=== PATIENT | female | born 1970 | race Two or more races ===

== ENCOUNTER 2020-02-20 14:11 | Outpatient (REF) | payer OTHER, SELFPAY ==
--- NOTE | 2020-02-20 | MM_ITS ---
EXAMINATION: MM SCREENING DIGITAL BREAST TOMOSYNTHESIS, BILATERAL CLINICAL INFORMATION: Screening. Asymptomatic. The lifetime risk of breast cancer based on the Tyrer-Cuzick Model is 7%. COMPARISON: Mammography: 12/21/2018, 09/15/2017, 09/14/2016 TECHNIQUE: Digital breast tomosynthesis is performed in both the craniocaudal and mediolateral oblique views along with computer-aided detection (CAD). Synthesized 2D images are generated from the tomosynthesis. FINDINGS: There are scattered areas of fibroglandular density (ACR BI-RADS breast composition Category b). There are no significant masses, abnormal calcifications, or other abnormalities. Parenchymal pattern is similar to prior exams. No developing density. No significant changes. MM/MM tomosynthesis screening BI IMPRESSION: No mammographic evidence of malignancy. ASSESSMENT: BI-RADS 1: Negative RECOMMENDATION: Routine annual mammography screening. This patient's information was entered into a reminder system with a target due date for their next mammogram.
== END 2020-02-20 14:12 | disposition home or self-care (01) ==
LOC: HO.MAMMO 14:11
PROVIDERS: PCP Internal Medicine; Visit Provider Internal Medicine
DX: Z12.31 Encounter for screening mammogram for malignant neoplasm of breast (principal)
CPT/HCPCS: 77063; 77067

== ENCOUNTER 2020-05-08 09:26 | Outpatient (REF) | payer BC, SELFPAY ==
[2020-05-08 10:43] LABS: Basophils Absolute Auto 0.1 X10*3/uL (0.0-0.2); Imm Gran Abs Auto 0.01 X10*3/uL (0.00-0.03); Imm Gran Pct Auto 0.2 % (0.0-0.4); MANUAL DIFF FLAG SCAN; Red Cell Distribution Width 13.1 % (11.0-16.0); SCAN SMEAR FLAG 1
[2020-05-08 10:45] LABS: Basophils Percent Auto 1.1 % (0-2); Eosinophils Absolute Auto 0.1 X10*3/uL (0.0-0.4); Eosinophils Percent Auto 3.2 % (0-4); Hematocrit 38.4 % (37-47); Hemoglobin 12.2 g/dl (12.0-16.0); Lymphocytes Absolute Auto 1.1 X10*3/uL (1.2-4.9); Lymphocytes Percent Auto 25.5 % (20-40); Mean Corpuscular HGB Conc 31.8 g/dl (31.0-35.0); Mean Corpuscular Hemoglobin 28.7 pg (27.0-33.0); Mean Corpuscular Volume 90.4 fL (80-98); Mean Platelet Volume 14.3 fL (9.4-12.3); Monocytes Absolute Auto 0.3 X10*3/uL (0.1-1.2); Monocytes Percent Auto 6.6 % (2-11); Neutrophils Absolute Auto 2.8 X10*3/uL (2.0-8.3); Neutrophils Percent Auto 63.4 % (45-73); PLT CLUMP 1; Red Blood Count 4.25 X10*6/uL (4.20-5.50)
[2020-05-08 10:46] LABS: PLT ABN DIST 1
[2020-05-08 11:21] LABS: Alanine Aminotransferase < 6 U/L (0-31); Albumin Level 3.8 g/dL (3.5-5.0); Alkaline Phosphatase 37 U/L (39-117); Anion Gap 12 (12-20); Aspartate Amino Transferase 11 U/L (5-31); Bilirubin Total 0.7 mg/dL (0.0-1.0); Blood Urea Nitrogen 16 mg/dL (9-16); Calcium 8.7 mg/dL (8.4-10.2); Carbon Dioxide 23 mmol/L (22-29); Chloride 108 mmol/L (96-108); Cholesterol 196 mg/dL; Estimated Glomerular Filt Rate > 60; Glucose Fasting 84 mg/dL (60-99); HDL Cholesterol 48 mg/dL; LDL Cholesterol Calculated 117 mg/dl; Potassium 4.3 mmol/L (3.3-5.1); Sodium 139 mmol/L (135-145); Total Protein 6.6 g/dL (6.5-8.0); Triglycerides 159 mg/dL
[2020-05-08 11:23] LABS: Platelet Count 142 X10*3/uL (160-400); SLIDE REVIEW VERIFIED; White Blood Count 4.4 X10*3/uL (4.8-10.8)
[2020-05-08 11:25] LABS: TSH reflex Free T4 2.65 uIU/mL (0.32-4.0)
[2020-05-08 11:33] LABS: Vitamin D 25-OH Total 26.9 ng/mL (>30)
[2020-05-08 11:59] LABS: Folate 16.3 ng/mL (> or = 4.0); Vitamin B12 285 pg/mL (200-900)
== END 2020-05-08 09:27 | disposition home or self-care (01) ==
LOC: HO.LAB 09:26
PROVIDERS: PCP Internal Medicine; Visit Provider Internal Medicine
DX: E78.2 Mixed hyperlipidemia (principal); E53.8 Deficiency of other specified B group vitamins; E55.9 Vitamin D deficiency, unspecified; E03.9 Hypothyroidism, unspecified; E66.9 Obesity, unspecified
CPT/HCPCS: 36415; 80053; 80061; 82306; 82607; 82746; 84443; 85025

== ENCOUNTER 2020-08-06 10:26 | Outpatient (REF) | payer BC, SELFPAY ==
[2020-08-06 11:51] LABS: Hemoglobin 11.2 g/dl (12.0-16.0); Imm Gran Abs Auto 0.01 X10*3/uL (0.00-0.03); Imm Gran Pct Auto 0.2 % (0.0-0.4); MANUAL DIFF FLAG SCAN; Monocytes Percent Auto 6.2 % (2-11); Red Cell Distribution Width 13.2 % (11.0-16.0); SCAN SMEAR FLAG 1
[2020-08-06 11:53] LABS: Basophils Percent Auto 0.9 % (0-2); Eosinophils Absolute Auto 0.1 X10*3/uL (0.0-0.4); Eosinophils Percent Auto 2.5 % (0-4); Hematocrit 35.6 % (37-47); Lymphocytes Percent Auto 23.5 % (20-40); Mean Corpuscular HGB Conc 31.5 g/dl (31.0-35.0); Mean Corpuscular Hemoglobin 27.9 pg (27.0-33.0); Mean Corpuscular Volume 88.8 fL (80-98); Monocytes Absolute Auto 0.3 X10*3/uL (0.1-1.2); Neutrophils Absolute Auto 2.9 X10*3/uL (2.0-8.3); Neutrophils Percent Auto 66.7 % (45-73); Platelet Count 133 X10*3/uL (160-400); Red Blood Count 4.01 X10*6/uL (4.20-5.50); White Blood Count 4.3 X10*3/uL (4.8-10.8)
[2020-08-06 11:56] LABS: PLT ABN DIST 1
[2020-08-06 12:19] LABS: TSH reflex Free T4 1.85 uIU/mL (0.32-4.0)
[2020-08-06 12:51] LABS: SLIDE REVIEW VERIFIED
== END 2020-08-06 10:27 | disposition home or self-care (01) ==
LOC: HO.LAB 10:26
PROVIDERS: PCP Internal Medicine; Visit Provider Internal Medicine
DX: E03.9 Hypothyroidism, unspecified (principal); D64.9 Anemia, unspecified
CPT/HCPCS: 36415; 84443; 85025

== ENCOUNTER → 2020-09-09 14:12 | Outpatient (BNV) | payer BC, SELFPAY | PROVIDERS: PCP Internal Medicine; Referring Provider Internal Medicine; Visit Provider Internal Medicine | DX: I82.409 Acute embolism and thrombosis of unspecified deep veins of unspecified lower extremity (principal) | CPT/HCPCS: 99203; 99213; 99214 ==

== ENCOUNTER 2020-09-19 11:01 | Emergency (ER) | payer BC, SELFPAY ==
--- NOTE | ~2020-09-19 | CT_ITS ---
EXAMINATION: CT ABDOMEN AND PELVIS WITH CONTRAST CLINICAL INFORMATION: Right lower quadrant pain COMPARISON: None TECHNIQUE: Multidetector volumetric images were obtained from the superior aspect of the liver through the pubic symphysis following administration 85 mL of Omnipaque 350 intravenous contrast. Sagittal and coronal reformatted images were obtained on the technologist's workstation. Oral contrast: Yes This CT examination was performed using dose optimization techniques as appropriate, variously including the following: *Automated exposure control *Adjustment of mA and/or kV according to patient size (this includes techniques or standardized protocols for targeted exams where dose is matched to indication/reason for exam; i.e. extremities or head) *Use of iterative reconstruction technique DLP: 763 mGy-cm FINDINGS: LUNG BASES: The visualized lung bases are unremarkable. LIVER, GALLBLADDER, AND BILIARY TREE: The liver is normal in size, shape, and attenuation. No focal hepatic lesion or biliary ductal dilatation is present. The gallbladder has been removed. PANCREAS: Unremarkable. SPLEEN: Unremarkable. ADRENAL GLANDS: Unremarkable. KIDNEYS AND URETERS: The kidneys are normal in size, shape, and attenuation. No hydronephrosis, hydroureter, or calculi seen. No perinephric stranding. BLADDER: Unremarkable. GASTROINTESTINAL TRACT: There are postoperative changes from gastric sleeve procedure. There may be wall thickening of the lower thoracic esophagus. The cecum is high in the right mid abdomen. Small and large bowel is otherwise unremarkable. The appendix is unremarkable. ABDOMINAL WALL: No significant hernia is appreciated. LYMPH NODES: Normal. VASCULAR: Unremarkable. PELVIC VISCERA: Unremarkable. OSSEOUS STRUCTURES: There are degenerative changes of the spine and mild curvature to the right.. CT/CT abdomen pelvis w con IMPRESSION: Postoperative changes following gastric sleeve procedure. Question wall thickening of the distal thoracic esophagus. Normal-appearing appendix.
[2020-09-19 11:25] VITALS: BP 125/53; PULSE 59; RESP 18; TEMP 37.1; O2SAT 100; BMI 32.1
[2020-09-19 11:50] LABS: Glucose Urine UA NEG (NEG); Leukocyte Esterase Urine NEG (NEG); Nitrite Urine NEG (NEG); Specific Gravity - Urine >= 1.030 (1.005-1.025); Urine Blood NEG (NEG); Urine Ketones NEG (NEG); Urine Protein NEG (NEG-TRACE)
--- NOTE | 2020-09-19 11:51 | ED.ABDPAIN ---
HPI - Abdominal Pain General Chief Complaint: Abdominal Pain Stated Complaint: Lower right abd pain Time Seen by Provider: 09/19/20 11:48 Source: patient Mode of arrival: ambulatory (sent from PCP office) Limitations: no limitations History of Present Illness MD elicited complaint: abdominal pain Pertinent past history: constipation Onset (ago): day(s) (1) Pain Consistency: colicky Location: RLQ Severity: moderate Quality: aching and burning Radiation: none Migration to: periumbilical Exacerbating factors: movement Relieving factors: nothing Associated symptoms: denies other symptoms Related Data Home Medications Medication Instructions Recorded Confirmed norethindrone 1 mg-ethinyl 1 tab PO DAILY 01/29/20 09/19/20 estradiol 20 mcg (21)-iron 75 mg (7) tablet multivitamin 1 tab PO DAILY 09/09/20 09/19/20 cyclobenzaprine 5 mg tablet 5 mg PO TID PRN 09/19/20 09/19/20 Previous Rx's Medication Instructions Recorded baclofen 5 mg tablet 5 mg PO TID PRN 30 Days #90 tab 01/29/20 cholecalciferol (vitamin D3) 25 25 mcg PO DAILY 90 Days #90 cap 05/29/20 mcg (1,000 unit) capsule levothyroxine 25 mcg tablet 25 mcg PO QAM #90 tab 08/02/20 sennosides 8.6 mg tablet 8.6 mg PO BEDTIME PRN 90 Days #90 08/20/20 tab tramadol 50 mg tablet 50 mg PO Q8H PRN 14 Days #21 tab 08/20/20 cyanocobalamin (vitamin B-12) 1,000 mcg PO DAILY #90 tab 09/10/20 [Vitamin B-12] ferrous sulfate [Iron (ferrous 325 mg PO BID #60 tab 09/10/20 sulfate)] Allergies Allergy/AdvReac Type Severity Reaction Status Date / Time lactose Allergy Unknown diarrhea Verified 09/19/20 11:24 oxycodone AdvReac Mild Vomiting Verified 09/19/20 11:24 Review of Systems Review of Systems Constitutional : No Weight loss, No Fever, No Chills ENT/Mouth : No sore throat, No Rhinorrhea Eyes: No Swelling, No Redness Cardiovascular : No Chest Pain, No SOB, NoEdema Respiratory : No Cough, No Sputum, No Wheezing Gastrointestinal : no Nausea, no Vomiting, no Diarrhea, positive abdominal Pain, No Hematochezia, No Melena Genitourinary : No Dysuria, No Urinary Frequency, No Hematuria, No Urgency Musculoskeletal : No joint pain, No Myalgias, No Joint Swelling Skin : No Skin Lesions, No rash Neuro : No Weakness, No Numbness, No Dizziness, No Headache Psych : No Anxiety/Panic, No Depression Heme/Lymph: No Bruising, No Lymphadenopathy Endocrine : No Polyuria, No Polydipsia All other systems reviewed and are negative. Physical Exam Vital Signs: Vital Signs: Last Vital Signs Temp 97.5 F 09/19/20 13:43 Pulse 55 09/19/20 13:43 Resp 17 09/19/20 13:43 BP 116/53 L 09/19/20 13:43 Pulse Ox 100 09/19/20 13:43 Body Mass Index 32.1 Appearance: Alert. Oriented X3. No acute distress. Eyes: Pupils equal, round and reactive to light. ENT: Pharynx normal. Neck: Normal inspection. Neck supple. CVS: Normal heart rate and rhythm. Pulses normal. Respiratory: No respiratory distress. Breath sounds normal. Abdomen: Soft and very mild RLQ ttp no rebound or guarding Skin: Skin warm and dry. Normal skin color. Normal skin turgor. Extremities: No lower extremity edema. No calf ttp Neuro: Oriented X 3. No motor deficit. No sensory deficit. Course Course Course Narrative: no acute findings stable for DC MDM - Abdominal Pain MDM Narrative Medical decision making narrative: 50 yo female s/o gastric sleeve and cholecystectomy comes in with 1 day of RLQ pain was severe yesterday but seems to have stopped today sent to ED by PCP - at this time will obtain labs, UA, CT scan to evaluate for hernia/appendicitis/ovarian pathology/renal colic, dispo per results and findings. Differential Diagnosis Differential diagnosis: Likely acute appendicitis, calculus of kidney, constipation, diverticulitis and ovarian cyst Lab Data Result diagrams: 09/19/20 12:02 09/19/20 12:02 Labs: Lab Results 09/19/20 09/19/20 09/19/20 Range/Units 11:36 11:36 12:02 WBC 6.3 (4.8-10.8) X10*3/uL RBC 4.30 (4.20-5.50) X10*6/uL Hgb 11.6 L (12.0-16.0) g/dl Hct 37.8 (37-47) % MCV 87.9 (80-98) fL MCH 27.0 (27.0-33.0) pg MCHC 30.7 L (31.0-35.0) g/dl RDW 13.8 (11.0-16.0) % Plt Count 173 D (160-400) X10*3/uL MPV 13.0 H (9.4-12.3) fL Immature Gran % (Auto) 0.2 (0.0-0.4) % Neut % (Auto) 73.0 (45-73) % Lymph % (Auto) 18.4 L (20-40) % [place] % (Auto) 6.2 (2-11) % Eos % (Auto) 1.4 (0-4) % Baso % (Auto) 0.8 (0-2) % Lymph # (Auto) 1.2 (1.2-4.9) X10*3/uL [place] # (Auto) 0.4 (0.1-1.2) X10*3/uL Eos # (Auto) 0.1 (0.0-0.4) X10*3/uL Baso # (Auto) 0.1 (0.0-0.2) X10*3/uL Abs Immat Gran (auto) 0.01 (0.00-0.03) X10*3/uL Absolute Neuts (auto) 4.6 (2.0-8.3) X10*3/uL Absolute Nucleated RBC 0.000 (0.0-0.012) X10*3/uL Nucleated RBC % (auto) 0.0 (0.0-0.2) /100WBC Sodium (135-145) mmol/L Potassium (3.3-5.1) mmol/L Chloride (96-108) mmol/L Carbon Dioxide (22-29) mmol/L Anion Gap (12-20) BUN (9-16) mg/dL Creatinine (0.5-1.4) mg/dL Estim Creat Clear Calc Estimated GFR Random Glucose (60-115) mg/dL Calcium (8.4-10.2) mg/dL Total Bilirubin (0.0-1.0) mg/dL AST (5-31) U/L ALT (0-31) U/L Alkaline Phosphatase (39-117) U/L Total Protein (6.5-8.0) g/dL Albumin (3.5-5.0) g/dL Urine Color YELLOW Urine Appearance HAZY Urine pH 6.0 (5.0-8.0) Ur Specific [place] >= 1.030 H (1.005-1.025) Urine Protein NEG (NEG-TRACE) MG/DL Urine Glucose (UA) NEG (NEG) MG/DL Urine Ketones NEG (NEG) MG/DL Urine Blood NEG (NEG) Urine Nitrite NEG (NEG) Ur Leukocyte Esterase NEG (NEG) Urine Test NEGATIVE (NEGATIVE) 09/19/20 Range/Units 12:02 WBC (4.8-10.8) X10*3/uL RBC (4.20-5.50) X10*6/uL Hgb (12.0-16.0) g/dl Hct (37-47) % MCV (80-98) fL MCH (27.0-33.0) pg MCHC (31.0-35.0) g/dl RDW (11.0-16.0) % Plt Count (160-400) X10*3/uL MPV (9.4-12.3) fL Immature Gran % (Auto) (0.0-0.4) % Neut % (Auto) (45-73) % Lymph % (Auto) (20-40) % [place] % (Auto) (2-11) % Eos % (Auto) (0-4) % Baso % (Auto) (0-2) % Lymph # (Auto) (1.2-4.9) X10*3/uL [place] # (Auto) (0.1-1.2) X10*3/uL Eos # (Auto) (0.0-0.4) X10*3/uL Baso # (Auto) (0.0-0.2) X10*3/uL Abs Immat Gran (auto) (0.00-0.03) X10*3/uL Absolute Neuts (auto) (2.0-8.3) X10*3/uL Absolute Nucleated RBC (0.0-0.012) X10*3/uL Nucleated RBC % (auto) (0.0-0.2) /100WBC Sodium 142 (135-145) mmol/L Potassium 4.1 (3.3-5.1) mmol/L Chloride 109 H (96-108) mmol/L Carbon Dioxide 26 (22-29) mmol/L Anion Gap 11 L (12-20) BUN 17 H (9-16) mg/dL Creatinine 0.77 (0.5-1.4) mg/dL Estim Creat Clear Calc 94.1 Estimated GFR > 60 Random Glucose 87 (60-115) mg/dL Calcium 9.3 D (8.4-10.2) mg/dL Total Bilirubin 0.7 (0.0-1.0) mg/dL AST 13 (5-31) U/L ALT 10 (0-31) U/L Alkaline Phosphatase 42 (39-117) U/L Total Protein 6.7 (6.5-8.0) g/dL Albumin 3.9 (3.5-5.0) g/dL Urine Color Urine Appearance Urine pH (5.0-8.0) Ur Specific [place] (1.005-1.025) Urine Protein (NEG-TRACE) MG/DL Urine Glucose (UA) (NEG) MG/DL Urine Ketones (NEG) MG/DL Urine Blood (NEG) Urine Nitrite (NEG) Ur Leukocyte Esterase (NEG) Urine Test (NEGATIVE) Discharge Plan Discharge Clinical Impression: RLQ abdominal pain Patient Disposition: Home, Self-Care Instructions: Abdominal Pain (ED) Additional Instructions: return to ED for any worsening symptoms or concerns negative CT scan for any ovarian issues, renal colic, appendicitis Prescriptions: No Action levothyroxine 25 mcg tablet 25 mcg PO QAM Qty: 90 RF: 0 multivitamin Tablet 1 tab PO DAILY RF: 0 cyanocobalamin (vitamin B-12) [Vitamin B-12] 1,000 mcg Tablet 1,000 mcg PO DAILY Qty: 90 RF: 3 ferrous sulfate [Iron (ferrous sulfate)] 325 mg (65 mg iron) Tablet 325 mg PO BID Qty: 60 RF: 3 cholecalciferol (vitamin D3) 25 mcg (1,000 unit) capsule 25 mcg PO DAILY 90 Days Qty: 90 RF: 3 sennosides [Senna Laxative] 8.6 mg tablet 8.6 mg PO BEDTIME PRN (Reason: constipation) 90 Days Qty: 90 RF: 0 tramadol 50 mg tablet 50 mg PO Q8H PRN (Reason: pain) 14 Days Qty: 21 RF: 0 norethindrone-e.estradiol-iron 1 mg-20 mcg (21)/75 mg (7) tablet 1 tab PO DAILY RF: 0 baclofen 5 mg tablet 5 mg PO TID PRN (Reason: pain) 30 Days Qty: 90 RF: 0 cyclobenzaprine 5 mg tablet 5 mg PO TID PRN (Reason: muscle spasm) RF: 0 Referrals: Bonnie Laura MD [Primary Care Provider] - 2 days (if not better) Stand Alone Forms: Work/School Release [facility] Past Medical History Attestation statement: The following information was validated with the patient. Medical History Constipation by delayed colonic transit Hypothyroidism Hypothyroidism Hypovitaminosis D Left shoulder pain Obesity Osteoarthritis of left knee Pancytopenia Toenail deformity Surgical History History of arthroscopy of left knee History of section History of cholecystectomy History of surgery Family History Family History Father Diabetes CVD (cardiovascular disease) Myocardial infarction Mother CVD (cardiovascular disease) Hypertension Maternal Grandmother No problems noted. Maternal Grandfather Prostate cancer Family/Other Mental health disorder Social History Social History Housing: House Alcohol intake: former Patient Tobacco Use Status: Never used Tobacco e-Cigarette/Vaping Use: Never Used Second Hand Smoke Exposure: No Advance Directives: No Advance Directives Information Provided: Yes Patient : No service: No Current occupational status: employed Current occupational exposures/hazards: No
[2020-09-19 11:53] LABS: UPreg QC Valid YES; Urine Pregnancy NEGATIVE (NEGATIVE)
[2020-09-19] MEDS: 0.9 % Sodium Chloride 1,000 ML 999 ML IVCONT (12:03)
[2020-09-19 12:14] LABS: Appearance Urine HAZY; Color Urine YELLOW
[2020-09-19 12:17] LABS: MANUAL DIFF FLAG NO
[2020-09-19 12:22] LABS: Basophils Absolute Auto 0.1 X10*3/uL (0.0-0.2); Basophils Percent Auto 0.8 % (0-2); Eosinophils Absolute Auto 0.1 X10*3/uL (0.0-0.4); Eosinophils Percent Auto 1.4 % (0-4); Hematocrit 37.8 % (37-47); Hemoglobin 11.6 g/dl (12.0-16.0); Imm Gran Abs Auto 0.01 X10*3/uL (0.00-0.03); Imm Gran Pct Auto 0.2 % (0.0-0.4); Lymphocytes Absolute Auto 1.2 X10*3/uL (1.2-4.9); Lymphocytes Percent Auto 18.4 % (20-40); Mean Corpuscular HGB Conc 30.7 g/dl (31.0-35.0); Mean Corpuscular Volume 87.9 fL (80-98); Monocytes Absolute Auto 0.4 X10*3/uL (0.1-1.2); Monocytes Percent Auto 6.2 % (2-11); Neutrophils Absolute Auto 4.6 X10*3/uL (2.0-8.3); Platelet Count 173 X10*3/uL (160-400); Red Cell Distribution Width 13.8 % (11.0-16.0); White Blood Count 6.3 X10*3/uL (4.8-10.8)
[2020-09-19 12:48] LABS: Alanine Aminotransferase 10 U/L (0-31); Albumin Level 3.9 g/dL (3.5-5.0); Alkaline Phosphatase 42 U/L (39-117); Anion Gap 11 (12-20); Aspartate Amino Transferase 13 U/L (5-31); Bilirubin Total 0.7 mg/dL (0.0-1.0); Blood Urea Nitrogen 17 mg/dL (9-16); Calcium 9.3 mg/dL (8.4-10.2); Carbon Dioxide 26 mmol/L (22-29); Chloride 109 mmol/L (96-108); Creatinine Clr Calc Pharmacy 94.1; Estimated Glomerular Filt Rate > 60; Glucose Random 87 mg/dL (60-115); Potassium 4.1 mmol/L (3.3-5.1); Sodium 142 mmol/L (135-145); Total Protein 6.7 g/dL (6.5-8.0)
[2020-09-19] MEDS: iohexoL 350 MG/ML 100 ML INFUS..BTL IV (13:27)
[2020-09-19 13:43] VITALS: BP 116/53; PULSE 55; RESP 17; TEMP 36.4; O2SAT 100
== END 2020-09-19 14:04 | disposition home or self-care (01) ==
PROVIDERS: Emergency Provider Emergency Medicine; PCP Internal Medicine
DX: R10.31 Right lower quadrant pain (principal); Z98.84 Bariatric surgery status; Z90.49 Acquired absence of other specified parts of digestive tract
CPT/HCPCS: 36415; 74177; 80053; 81003; 81025; 85025; 96361; 96374; 99284; Q9967

== ENCOUNTER 2021-03-02 07:57 | Outpatient (REF) | payer BC, SELFPAY ==
--- NOTE | ~2021-03-02 | MM_ITS ---
EXAMINATION: MM SCREENING DIGITAL BREAST TOMOSYNTHESIS, BILATERAL CLINICAL INFORMATION: Screening. Asymptomatic. The lifetime risk of breast cancer based on the Tyrer-Cuzick Model is 8%. COMPARISON: Mammography: 02/20/2020, 12/21/2018, 09/15/2017 TECHNIQUE: Digital breast tomosynthesis is performed in both the craniocaudal and mediolateral oblique views along with computer-aided detection (CAD). Synthesized 2D images are generated from the tomosynthesis. FINDINGS: There are scattered areas of fibroglandular density (ACR BI-RADS breast composition Category b). There are no significant masses, abnormal calcifications, or other abnormalities. Parenchymal pattern is similar to prior studies. The axilla and skin contours are unremarkable. MM/MM tomosynthesis screening BI IMPRESSION: No mammographic evidence of malignancy. ASSESSMENT: BI-RADS 1: Negative RECOMMENDATION: Routine annual mammography screening. This patient's information was entered into a reminder system with a target due date for their next mammogram.
== END 2021-03-02 07:58 | disposition home or self-care (01) ==
LOC: HO.MAMMO 07:57
PROVIDERS: Visit Provider Internal Medicine
DX: Z12.31 Encounter for screening mammogram for malignant neoplasm of breast (principal)
CPT/HCPCS: 77063; 77067

== ENCOUNTER 2021-03-02 08:31 | Outpatient (REF) | payer BC, SELFPAY ==
[2021-03-02 10:49] LABS: Thyroid Stimulating Hormone 3.29 uIU/mL (0.32-4.0)
[2021-03-06 13:01] LABS: Vitamin D 25-OH, D2 4 ng/mL; Vitamin D 25-OH, D3 35 ng/mL; Vitamin D 25-OH, Total 39 ng/mL (30-100)
== END 2021-03-02 08:32 | disposition home or self-care (01) ==
LOC: HO.LAB 08:31
PROVIDERS: PCP Internal Medicine; Visit Provider Internal Medicine
DX: E03.9 Hypothyroidism, unspecified (principal); E55.9 Vitamin D deficiency, unspecified
CPT/HCPCS: 36415; 82306; 84443

== ENCOUNTER 2021-06-24 11:23 | Outpatient (REF) | payer BC, SELFPAY ==
[2021-06-24 12:53] LABS: TSH reflex Free T4 (Prenatal) 3.21 uIU/mL (0.32-4.0)
[2021-06-24 14:48] LABS: Free T4 (Free Thyroxine) 1.03 ng/dL (0.71-1.85)
== END 2021-06-24 11:24 | disposition home or self-care (01) ==
LOC: HO.LAB 11:23
PROVIDERS: PCP Internal Medicine; Visit Provider Internal Medicine
DX: E03.9 Hypothyroidism, unspecified (principal)
CPT/HCPCS: 36415; 84439

== ENCOUNTER 2021-11-24 08:19 | Outpatient (REF) | payer BC, SELFPAY ==
--- NOTE | 2021-11-24 08:26 | ECG_ITS ---
Test Reason : syncope and collapse Blood Pressure : / mmHG Vent. Rate : 060 BPM Atrial Rate : 060 BPM P-R Int : 106 ms QRS Dur : 070 ms QT Int : 412 ms P-R-T Axes : 021 041 005 degrees QTc Int : 412 ms Sinus rhythm with short [place] Otherwise normal ECG No previous ECGs available Referred By: Bonnie Ahn Electronically Signed By:SHELBI CASTELAN
[2021-11-24 10:25] LABS: Thyroid Stimulating Hormone 2.32 uIU/mL (0.32-4.0)
== END 2021-11-24 08:20 | disposition home or self-care (01) ==
LOC: HO.LAB 08:19
PROVIDERS: PCP Internal Medicine; Visit Provider Internal Medicine
DX: R55 Syncope and collapse (principal); E03.9 Hypothyroidism, unspecified
CPT/HCPCS: 36415; 84443; 93005

== ENCOUNTER 2021-12-01 07:07 | Outpatient (REF) | payer BC, SELFPAY ==
--- NOTE | ~2021-12-01 | CT_ITS ---
EXAMINATION: CT HEAD WITHOUT CONTRAST CLINICAL INFORMATION: 51-year-old with syncope and collapse. COMPARISON: None TECHNIQUE: Volumetric CT axial imaging was performed from the skull base to vertex without intravenous administration of contrast. This CT examination was performed using dose optimization techniques as appropriate, variously including the following: *Automated exposure control *Adjustment of mA and/or kV according to patient size (this includes techniques or standardized protocols for targeted exams where dose is matched to indication/reason for exam; i.e. extremities or head) *Use of iterative reconstruction technique DLP: 719 mGy-cm FINDINGS: Brain Volume: Normal for age. Structural: No malformations. Brain and Meninges: The brain is normal in morphology with normal padilla-white matter differentiation and normal brain parenchymal attenuation. No evidence for intracranial hemorrhage, extra-axial fluid collection, infarction, space-occupying process or mass effect. Ventricles and Subarachnoid Spaces: The ventricular system and subarachnoid spaces are within normal limits without hydrocephalus. Orbital Structures: Grossly unremarkable within the limitations of the study. Osseous Structures, Sinuses/Mastoids, Extracranial Soft Tissues: Unremarkable CT/CT head/brain wo IV con IMPRESSION: Normal noncontrast CT of the brain.
== END 2021-12-01 07:08 | disposition home or self-care (01) ==
LOC: HO.CT 07:07
PROVIDERS: PCP Internal Medicine; Visit Provider Internal Medicine
DX: R55 Syncope and collapse (principal)
CPT/HCPCS: 70450

== ENCOUNTER → 2021-12-21 13:09 | Outpatient (REF) | payer BC, SELFPAY ==
--- NOTE | 2021-12-21 13:14 | CA_ITS ---
Transthoracic Echocardiogram Patient (Last, First, Middle): Shelia Fitzgerald M Gender: Female Date of : 1970 Age: 51 Procedure Date: 12/21/2021 Procedure Type: Transthoracic Echocardiogram Location: OP Height: 157.48 cm Weight: 91.17 kg BSA: 1.92 m2 Heart Rate: 61 bpm BP: 122 / 60 mmHg Sifting Operator: Referring MD: Bonnie Ahn MD Symptoms: R55 - Syncope and collapse Study Quality: Fair ECG Rhythm: Sinus Conclusions: - The left ventricular systolic function is normal. The calculated ejection fraction is 69% by biplane method. - No obvious valvular pathology seen on this study. Findings Left Ventricle Normal left ventricular cavity size. There is normal left ventricular wall thickness. The left ventricular systolic function is normal. The calculated ejection fraction is 69% by biplane method. There is no evidence of regional wall motion abnormalities. Diastolic function is normal for age. Right Ventricle Normal right ventricular cavity size and systolic function. Atria Both atria are normal in size. Aortic Valve There is a normal trileaflet aortic valve. There is no aortic valve stenosis. There is no aortic valve regurgitation. Mitral Valve The mitral valve appears normal. There is mild mitral valve regurgitation. There is no mitral valve stenosis. Pulmonic Valve The pulmonic valve is likely normal. Tricuspid Valve Normal tricuspid valve structure. There is mild tricuspid valve regurgitation. There is no evidence of pulmonary hypertension. Great Vessels The aortic annulus, sinuses of valsalva, and asc aorta are normal in size. Venous The inferior vena cava is normal in size and collapses greater than 50% with inspiration. Pericardium/Pleural There is no evidence of pericardial effusion. Prior Study Comparison No prior study available for comparison. Recommendations, Care & Conclusions No obvious valvular pathology seen on this study. Measurements 2D Linear Measurements IVSd: 0.89 0.6-0.9/0.6-1.0 cm LVIDd: 5.10 3.9-5.3/4.2-5.9 cm LVIDd Index: 2.66 2.4-3.2/2.2-3.1 cm/m2 LVIDs: 3.30 2.0-3.6 cm LVPWd: 0.89 0.7-1.1 cm Ao Root: 2.60 2.1-3.5 cm LA Diam: 4.30 2.7-3.8/3.0-4.0 cm LAIDs Index: 2.24 1.5-2.3 cm/m2 LV Mass: 200.73 67-162/88-224 g LV Mass Index: 104.55 43-95/49-115 g/m2 LVOT Diam: 2.00 3.0+(-)1.3 cm 2D Systolic Function EF 4C: 61.30 >55% EF 2C: 74.30 >55% EF BiP: 68.50 >55% Mitral Valve MV Pk E: 0.65 MV PK A: 0.78 MV Decel Time: 148.00 E/A: 0.80 E'Lateral: 19.80 E'Medial: 11.60 E/E' Med: 5.60 E/E' Lat: 3.30 PHT: 43.00 MVA PHT: 5.12 Decel [place]: 7.74 Aortic Valve AoV Pk [place]: 1.96 AoV Mn [place]: 1.21 AoV VTI: 0.41 AoV Pk Grad: 15.00 Aov Mn Grad: 7.00 SARITA Cont.VTI: 1.43 LVOT LVOT Pk [place]: 0.86 LVOT Mn [place]: 0.53 LVOT VTI: 0.19 LVOT Pk Grad: 3.00 LVOT Mn Grad: 1.00 LVOT Diam: 2.00 LVOT Area: 3.14 Diastolic Function MV Pk E: 0.65 MV Pk A: 0.78 E/A: 0.80 E'Medial: 11.60 E/E' Med: 5.60 E' Laterial: 19.80 E/E' Lat: 3.30 Right Ventricle TAPSE (mm): 25.00 TVS' [place]: 15.00 Tricuspid Valve TR Pk [place]: 2.23 TR Pk Grad: 20.00 RA Press: 3.00 RVSP: 23.00 Great Vessels Aorta Ao Root-2D: 2.60 2.0-3.7 cm Ao Asc: 2.50 2.1-3.4 cm Pulmonary Valve PV Pk [place]: 1.21 Peak PV Grad: 6.00 Updated in Other Vendor System with Status of Final Dk Robledo MD electronically signed on 12/21/2021 2:45:21 PM with status of Final
== END ==
LOC: HO.CARD 13:09
PROVIDERS: Visit Provider Internal Medicine
DX: R55 Syncope and collapse (principal)
CPT/HCPCS: 93306

== ENCOUNTER → 2021-12-21 14:16 | Outpatient (REF) | payer BC, SELFPAY ==
--- NOTE | 2021-12-21 13:16 | HM_ITS ---
* Total monitoring time 1 day. * Underlying rhythm is sinus. Average rate 63/Min. Range 44 to 116/Min. * Rare supraventricular and ventricular ectopy. * No pauses or AV blocks. * Patient marker used once with sinus rhythm. MTDD
== END ==
LOC: HO.CARD 14:16
PROVIDERS: Visit Provider Internal Medicine
DX: R55 Syncope and collapse (principal)
CPT/HCPCS: 93226

== ENCOUNTER 2021-12-23 13:50 | Outpatient (REF) | payer BC, SELFPAY ==
--- NOTE | ~2021-12-23 | US_ITS ---
EXAMINATION: US EXTRACRANIAL CAROTID DUPLEX, BILATERAL CLINICAL INFORMATION: Syncope and collapse COMPARISON: None TECHNIQUE: Real-time ultrasound and Doppler techniques (integrating B-mode 2-D vascular images, Doppler spectral analysis and color-flow Doppler imaging) were utilized to interrogate the extracranial carotid arteries, the vertebral arteries and proximal subclavian arteries bilaterally. The degree of stenosis is determined by criteria similar to NASCET. FINDINGS: Right Side: 1. There is no significant atherosclerotic plaque seen in the bifurcation/proximal ICA region. 2. The common carotid artery PSV proximally is 103 cm/s and distally 106 cm/s. 3. The proximal internal carotid artery velocities are 107 cm/s systolic and 27.4 cm/s diastolic. 4. The proximal external carotid artery PSV is 120 cm/s. 5. The vertebral artery shows antegrade flow. 6. The subclavian artery waveforms are normal. Left Side: 1. There is no significant atherosclerotic plaque seen in the bifurcation/proximal ICA region. 2. The common carotid artery PSV proximally is 122 cm/s and distally 101 cm/s. 3. The proximal internal carotid artery velocities are 73.3 cm/s systolic and 32.8 cm/s diastolic. 4. The proximal external carotid artery PSV is 108 cm/s. 5. The vertebral artery shows antegrade flow. 6. The subclavian artery waveforms are normal. US/US carotid duplex BI IMPRESSION: 1. RIGHT: Normal right internal carotid artery without atherosclerotic plaque or hemodynamically significant stenosis. 2. LEFT: Normal left internal carotid artery without atherosclerotic plaque or hemodynamically significant stenosis.
== END 2021-12-23 13:51 | disposition home or self-care (01) ==
LOC: HO.HMGCX 13:50
PROVIDERS: PCP Internal Medicine; Visit Provider Internal Medicine
DX: R55 Syncope and collapse (principal)
CPT/HCPCS: 93880

== ENCOUNTER 2022-03-04 07:49 | Outpatient (REF) | payer BC, SELFPAY ==
--- NOTE | ~2022-03-04 | MM_ITS ---
EXAMINATION: MM SCREENING DIGITAL BREAST TOMOSYNTHESIS, BILATERAL CLINICAL INFORMATION: Screening. Asymptomatic. The lifetime risk of breast cancer based on the Tyrer-Cuzick Model is 7%. COMPARISON: Mammography: March 02, 2021 and studies dating back to June 21, 2014 TECHNIQUE: Digital breast tomosynthesis is performed in both the craniocaudal and mediolateral oblique views along with computer-aided detection (CAD). Synthesized 2D images are generated from the tomosynthesis. FINDINGS: There are scattered areas of fibroglandular density (ACR BI-RADS breast composition Category b). There are no significant masses, abnormal calcifications, or other abnormalities. MM/MM tomosynthesis screening BI IMPRESSION: No significant changes from prior exam. ASSESSMENT: BI-RADS 1: Negative RECOMMENDATION: Routine annual mammography screening. This patient's information was entered into a reminder system with a target due date for their next mammogram.
[2022-03-04 08:20] LABS: MANUAL DIFF FLAG NO
[2022-03-04 08:42] LABS: Basophils Absolute Auto 0.1 X10*3/uL (0.0-0.2); Basophils Percent Auto 1.1 % (0-2); Eosinophils Absolute Auto 0.2 X10*3/uL (0.0-0.4); Eosinophils Percent Auto 3.6 % (0-4); Hematocrit 42.5 % (37.0-47.0); Hemoglobin 13.6 g/dl (12.0-16.0); Imm Gran Abs Auto 0.01 X10*3/uL (0.00-0.03); Imm Gran Pct Auto 0.2 % (0.0-0.4); Lymphocytes Absolute Auto 1.2 X10*3/uL (1.2-4.9); Lymphocytes Percent Auto 21.6 % (20-40); Mean Corpuscular Volume 93.6 fL (80.0-98.0); Monocytes Absolute Auto 0.4 X10*3/uL (0.1-1.2); Monocytes Percent Auto 7.7 % (2-11); Neutrophils Absolute Auto 3.5 x10*3/uL (2.0-8.3); Neutrophils Percent Auto 65.8 % (45-73); Platelet Count 149 X10*3/uL (160-400); Red Blood Count 4.54 X10*6/uL (4.20-5.50); Red Cell Distribution Width 12.4 % (11.0-16.0); White Blood Count 5.3 X10*3/uL (4.8-10.8)
[2022-03-04 09:33] LABS: Alanine Aminotransferase 9 U/L (0-31); Albumin Level 3.9 g/dL (3.5-5.0); Alkaline Phosphatase 46 U/L (39-117); Anion Gap 10 (12-20); Aspartate Amino Transferase 13 U/L (5-31); Bilirubin Total 0.6 mg/dL (0.0-1.0); Blood Urea Nitrogen 16 mg/dL (9-16); Calcium 9.3 mg/dL (8.4-10.2); Carbon Dioxide 28 mmol/L (22-29); Chloride 109 mmol/L (96-108); Cholesterol 219 mg/dL; Estimated Glomerular Filt Rate > 60; Glucose Fasting 91 mg/dL (60-99); HDL Cholesterol 53 mg/dL; LDL Cholesterol Calculated 133 mg/dl; Potassium 4.6 mmol/L (3.3-5.1); Sodium 142 mmol/L (135-145); Thyroid Stimulating Hormone 3.71 uIU/mL (0.32-4.0); Total Protein 6.7 g/dL (6.5-8.0); Triglycerides 167 mg/dL
== END 2022-03-04 07:50 | disposition home or self-care (01) ==
LOC: HO.MAMMO 07:49
PROVIDERS: PCP Internal Medicine; Visit Provider Internal Medicine
DX: Z00.00 Encounter for general adult medical examination without abnormal findings (principal); Z12.31 Encounter for screening mammogram for malignant neoplasm of breast; E55.9 Vitamin D deficiency, unspecified; E03.9 Hypothyroidism, unspecified; E78.5 Hyperlipidemia, unspecified; D69.6 Thrombocytopenia, unspecified
CPT/HCPCS: 36415; 77063; 77067; 80053; 80061; 82306; 84443; 85025

== ENCOUNTER → 2022-05-05 07:40 | Outpatient (BNVA) | payer BC, SELFPAY | PROVIDERS: PCP Internal Medicine; Referring Provider Internal Medicine; Visit Provider Nurse Practitioner Family | DX: Z13.89 Encounter for screening for other disorder (principal) ==

== ENCOUNTER 2022-06-28 08:39 | Outpatient (REF) | payer BC, SELFPAY ==
[2022-06-28 11:09] LABS: Thyroid Stimulating Hormone 3.88 uIU/mL (0.32-4.0)
== END 2022-06-28 08:40 | disposition home or self-care (01) ==
LOC: HO.LAB 08:39
PROVIDERS: PCP Internal Medicine; Visit Provider Internal Medicine
DX: E03.9 Hypothyroidism, unspecified (principal)
CPT/HCPCS: 36415; 84443

== ENCOUNTER 2022-07-27 13:41 | Outpatient (REF) | payer BC, SELFPAY ==
--- NOTE | ~2022-07-27 | US_ITS ---
EXAMINATION: US VENOUS ULTRASOUND WITH DOPPLER LOWER EXTREMITY, LEFT CLINICAL INFORMATION: Pain COMPARISON: None available. TECHNIQUE: Ultrasound of the deep veins is performed from the hip to the calf with compression sonography and color and pulse Doppler assessment. Spectral analysis with color-flow imaging is performed. FINDINGS: The left common femoral vein, profunda femoral and superficial femoral veins in the upper thigh are patent. There is occlusive thrombus seen in the superficial femoral vein in the mid and distal thigh, popliteal vein and peroneal veins in the calf. Visualized posterior tibial veins in the calf are patent. There is no Garcia's cyst. US/US venous duplex LE IMPRESSION: Left superficial femoral, popliteal and peroneal vein DVT. Findings were communicated to the office by the x ray technologist at the completion of the exam and the patient was instructed to go to the emergency room.
== END 2022-07-27 13:42 | disposition home or self-care (01) ==
LOC: HO.HMGCX 13:41
PROVIDERS: PCP Internal Medicine; Visit Provider Internal Medicine
DX: M79.605 Pain in left leg (principal)
CPT/HCPCS: 93971

== ENCOUNTER 2022-07-27 14:48 | Inpatient (IN) | payer BC, SELFPAY ==
[2022-07-27 15:31] VITALS: BP 152/86; PULSE 71; RESP 20; TEMP 37.1; O2SAT 100; BMI 35.0
--- NOTE | 2022-07-27 15:31 | ED.LOWEXIN ---
HPI - Extremity Injury (Lower) General Chief Complaint: General Medical Stated Complaint: DVT Time Seen by Provider: 07/27/22 16:43 History of Present Illness HPI Narrative: patient presents for evaluation and treatment for a DVT of the left leg that was diagnosed on outpatient ultrasound She has had pain without injury in the left lower leg for about 2 weeks and noted some mild swelling and saw her doctor who got the ultrasound which showed a large clot burden and came as directed to the emergency room She has no other complaints she has no chest pain no shortness of breath no pain with deep breath no chest tightness, she has no difficulty walking, there is no numbness or weakness in the leg Related Data Home Medications Medication Instructions Recorded Confirmed norethindrone 1 mg-ethinyl 1 tab PO DAILY 01/29/20 07/07/22 estradiol 20 mcg (21)-iron 75 mg (7) tablet multivitamin 1 tab PO DAILY 09/09/20 07/07/22 meloxicam 15 mg tablet 15 mg PO DAILY 05/05/22 07/07/22 Previous Rx's Medication Instructions Recorded cyclobenzaprine 10 mg tablet 10 mg PO TID PRN muscle spasm 30 02/24/22 days #90 tabs tramadol 50 mg tablet 50 mg PO BID PRN pain 30 days #60 02/24/22 tabs docusate sodium 100 mg capsule 100 mg PO BEDTIME #90 caps 05/05/22 polyethylene glycol 3350 17 238 g PO ONCE #238 grams 05/05/22 gram/dose oral powder (Miralax) levothyroxine 25 mcg tablet 25 mcg PO QAM 90 days #90 tabs 07/21/22 Allergies Allergy/AdvReac Type Severity Reaction Status Date / Time lactose Allergy Intermediate diarrhea Verified 06/28/22 08:23 oxycodone AdvReac Mild Vomiting, Verified 06/28/22 08:23 stomach pain PMFSH Past Medical History Source: nursing notes reviewed Medical History Class 1 obesity with body mass index (BMI) of 34.0 to 34.9 in adult Constipation by delayed colonic transit Hypothyroidism Hypothyroidism Hypovitaminosis D Left shoulder pain Obesity Osteoarthritis of left knee Pancytopenia Physical exam Thrombocytopenia Toenail deformity Surgical History H/O gastric sleeve History of arthroscopy of left knee History of section History of cholecystectomy History of surgery Venous insufficiency of left leg Family History Family History Father Diabetes CVD (cardiovascular disease) Myocardial infarction Mother CVD (cardiovascular disease) Hypertension Maternal Grandmother No problems noted. Maternal Grandfather Prostate cancer Family/Other Mental health disorder Social History Social History Household Members: Spouse and Children Housing: House Are you a primary career technology teacher to a significant other at home: No Do you presently have visiting nurse or other home services: No Alcohol intake: never Patient Tobacco Use Status: Never used Tobacco e-Cigarette/Vaping Use: Never Used Second Hand Smoke Exposure: No Advance Directives: No Advance Directives Information Provided: No service: No Current occupational status: employed Current occupational exposures/hazards: No Cognitive needs: No Hearing needs: No Vision needs: Yes Physical Exam Vital Signs: Vital Signs: Last Vital Signs Temp 98.5 F 07/27/22 18:08 Pulse 61 07/27/22 18:08 Resp 13 07/27/22 18:08 BP 123/68 07/27/22 18:08 Pulse Ox 100 07/27/22 18:08 O2 Del Method Room Air 07/27/22 18:08 BMI result Body Mass Index 36.0 general appearance is comfortable no distress Head is normocephalic atraumatic Neck is supple The chest is clear to auscultation with full symmetric equal breath sounds There is no pleuritic chest pain no pain with deep breath There is no tenderness to wrist wall Heart no murmur Abdomen soft nontender Extremities for range of motion x4 The left leg had mild posterior swelling there is no skin discoloration no palpable cord there is tenderness to the posterior leg mostly in the popliteal distal thigh and proximal calf area, neurovascular intact distal Other extremities normal Skin no rash Neuro no focal deficits Course Course Course Narrative: LESLEY: 52 year old female with past medical history hypothyroid, pancytopenia, venous insufficiency, sent to ED by PCP for DVT noted on outpatient US today. Admits to E pain x2 weeks. Reports traveled to [place] in Apr. denies taking AC, OCPs, hx clots in the past or cigarette smoking, or SOB Labs ordered, US not read by radiology yet Full HPI, ROS and PE to be performed by primary ED provider. Patient with left superficial femoral, popliteal and peroneal vein DVT, extensive DVT Case was discussed with from vascular surgery who said to admit the patient here in [place] and start a heparin drip so this was done and patient was admitted to hospitalist service It was noted that her platelets were 108, no other acute lab abnormality test was negative Patient remained comfortable stable throughout ER visit and was itli Medications Administered Generic Name Dose Route Start Last Admin Trade Name Freq PRN Reason Stop Dose Admin Heparin Sodium/Sodium Chloride 25,000 unit in 250 mls @ 0 mls/hr 07/27/22 18:00 07/27/22 17:57 Heparin Sodium,Porcine/1/2ns IVCONT 14 units/kg/hr .Q0M AKOSUA 13.32 mls/hr Administration Protocol Per Protocol Discontinued Medications Generic Name Dose Route Start Last Admin Trade Name Freq PRN Reason Stop Dose Admin Heparin Sodium (Porcine) 3,800 unit 07/27/22 18:00 07/27/22 17:53 Heparin Sodium,Porcine 5,000 Unit/Ml Vial IVPUSH 07/27/22 18:01 3,800 unit ONCE ONE Administration Medical Decision Making Lab Data MDM Lab Attestation statement: I reviewed the patient's lab results. 07/27/22 16:06 07/27/22 16:06 Labs: Lab Results 07/27/22 07/27/22 07/27/22 Range/Units 16:06 16:06 16:06 WBC 5.9 (4.8-10.8) X10*3/uL RBC 4.44 (4.20-5.50) X10*6/uL Hgb 12.9 (12.0-16.0) g/dl Hct 40.1 (37.0-47.0) % MCV 90.3 (80.0-98.0) fL MCH 29.1 (27.0-33.0) pg MCHC 32.2 (31.0-35.0) g/dl RDW 12.4 (11.0-16.0) % Plt Count 108 L (160-400) X10*3/uL MPV 12.5 H (9.4-12.3) fL Immature Gran % (Auto) 0.2 (0.0-0.4) % Neut % (Auto) 71.2 (45-73) % Lymph % (Auto) 19.3 L (20-40) % [place] % (Auto) 6.1 (2-11) % Eos % (Auto) 2.2 (0-4) % Baso % (Auto) 1.0 (0-2) % Lymph # (Auto) 1.1 L (1.2-4.9) X10*3/uL [place] # (Auto) 0.4 (0.1-1.2) X10*3/uL Eos # (Auto) 0.1 (0.0-0.4) X10*3/uL Baso # (Auto) 0.1 (0.0-0.2) X10*3/uL Abs Immat Gran (auto) 0.01 (0.00-0.03) X10*3/uL Absolute Neuts (auto) 4.2 (2.0-8.3) x10*3/uL Absolute Nucleated RBC 0.000 (0.0-0.012) X10*3/uL Nucleated RBC % (auto) 0.0 (0.0-0.2) /100WBC PT 10.2 (10.0-13.1) SEC INR 0.9 (0.9-1.1) APTT 25.6 L (26.0-36.4) SEC Sodium 141 (135-145) mmol/L Potassium 5.3 H (3.3-5.1) mmol/L Chloride 109 H (96-108) mmol/L Carbon Dioxide 27 (22-29) mmol/L Anion Gap 10 L (12-20) BUN 20 H (9-16) mg/dL Creatinine 0.78 (0.5-1.4) mg/dL Estim Creat Clear Calc 95.1 Estimated GFR > 60 Random Glucose 108 (60-115) mg/dL Calcium 9.4 (8.4-10.2) mg/dL B-Natriuretic Peptide (<100) pg/mL 07/27/22 07/27/22 Range/Units 16:06 17:12 WBC (4.8-10.8) X10*3/uL RBC (4.20-5.50) X10*6/uL Hgb (12.0-16.0) g/dl Hct (37.0-47.0) % MCV (80.0-98.0) fL MCH (27.0-33.0) pg MCHC (31.0-35.0) g/dl RDW (11.0-16.0) % Plt Count (160-400) X10*3/uL MPV (9.4-12.3) fL Immature Gran % (Auto) (0.0-0.4) % Neut % (Auto) (45-73) % Lymph % (Auto) (20-40) % [place] % (Auto) (2-11) % Eos % (Auto) (0-4) % Baso % (Auto) (0-2) % Lymph # (Auto) (1.2-4.9) X10*3/uL [place] # (Auto) (0.1-1.2) X10*3/uL Eos # (Auto) (0.0-0.4) X10*3/uL Baso # (Auto) (0.0-0.2) X10*3/uL Abs Immat Gran (auto) (0.00-0.03) X10*3/uL Absolute Neuts (auto) (2.0-8.3) x10*3/uL Absolute Nucleated RBC (0.0-0.012) X10*3/uL Nucleated RBC % (auto) (0.0-0.2) /100WBC PT (10.0-13.1) SEC INR (0.9-1.1) APTT (26.0-36.4) SEC Sodium 142 (135-145) mmol/L Potassium 4.8 (3.3-5.1) mmol/L Chloride 109 H (96-108) mmol/L Carbon Dioxide 27 (22-29) mmol/L Anion Gap 11 L (12-20) BUN 20 H (9-16) mg/dL Creatinine 0.79 (0.5-1.4) mg/dL Estim Creat Clear Calc 95.3 Estimated GFR > 60 Random Glucose 100 (60-115) mg/dL Calcium 9.5 (8.4-10.2) mg/dL B-Natriuretic Peptide 61 (<100) pg/mL Discharge Plan Discharge Clinical Impression: Acute deep vein thrombosis (DVT) of left lower extremity Patient Disposition: Admitted As Inpatient Prescriptions: No Action levothyroxine 25 mcg tablet 25 mcg PO QAM 90 Days Qty: 90 1RF multivitamin Tablet 1 tab PO DAILY norethindrone-e.estradiol-iron 1 mg-20 mcg (21)/75 mg (7) tablet 1 tab PO DAILY cyclobenzaprine 10 mg tablet 10 mg PO TID PRN (Reason: muscle spasm) 30 Days Qty: 90 1RF tramadol 50 mg tablet 50 mg PO BID PRN (Reason: pain) 30 Days Qty: 60 0RF meloxicam 15 mg tablet 15 mg PO DAILY docusate sodium 100 mg capsule 100 mg PO BEDTIME Qty: 90 3RF polyethylene glycol 3350 [Miralax] 17 gram/dose powder 238 g PO ONCE Qty: 238 0RF Rx Instructions: As directed by gastroenterology department at [facility]
[2022-07-27 16:13] LABS: MANUAL DIFF FLAG NO
[2022-07-27 16:15] LABS: Basophils Absolute Auto 0.1 X10*3/uL (0.0-0.2); Eosinophils Absolute Auto 0.1 X10*3/uL (0.0-0.4); Eosinophils Percent Auto 2.2 % (0-4); Hematocrit 40.1 % (37.0-47.0); Hemoglobin 12.9 g/dl (12.0-16.0); Imm Gran Abs Auto 0.01 X10*3/uL (0.00-0.03); Imm Gran Pct Auto 0.2 % (0.0-0.4); Lymphocytes Absolute Auto 1.1 X10*3/uL (1.2-4.9); Lymphocytes Percent Auto 19.3 % (20-40); Mean Corpuscular HGB Conc 32.2 g/dl (31.0-35.0); Mean Corpuscular Hemoglobin 29.1 pg (27.0-33.0); Mean Corpuscular Volume 90.3 fL (80.0-98.0); Mean Platelet Volume 12.5 fL (9.4-12.3); Monocytes Absolute Auto 0.4 X10*3/uL (0.1-1.2); Monocytes Percent Auto 6.1 % (2-11); Neutrophils Absolute Auto 4.2 x10*3/uL (2.0-8.3); Neutrophils Percent Auto 71.2 % (45-73); Platelet Count 108 X10*3/uL (160-400); Red Blood Count 4.44 X10*6/uL (4.20-5.50); Red Cell Distribution Width 12.4 % (11.0-16.0); White Blood Count 5.9 X10*3/uL (4.8-10.8)
[2022-07-27 16:22] LABS: INTERNATIONAL NORM RATIO 0.9 (0.9-1.1); Prothrombin Time 10.2 SEC (10.0-13.1)
[2022-07-27 16:24] LABS: Partial Thromboplastin Time 25.6 SEC (26.0-36.4)
[2022-07-27 16:29] LABS: Anion Gap 10 (12-20); Blood Urea Nitrogen 20 mg/dL (9-16); Calcium 9.4 mg/dL (8.4-10.2); Carbon Dioxide 27 mmol/L (22-29); Chloride 109 mmol/L (96-108); Creatinine Clr Calc Pharmacy 95.1; Estimated Glomerular Filt Rate > 60; Glucose Random 108 mg/dL (60-115); Potassium 5.3 mmol/L (3.3-5.1); Sodium 141 mmol/L (135-145)
[2022-07-27 16:35] LABS: B Type Natriuretic Peptide 61 pg/mL (<100)
[2022-07-27 17:21] VITALS: BMI 36.0
--- NOTE | 2022-07-27 17:26 | PC.NURSE ---
WEIGHT VERIFIED WITH PHARMACY
[2022-07-27 17:44] LABS: Anion Gap 11 (12-20); Blood Urea Nitrogen 20 mg/dL (9-16); Calcium 9.5 mg/dL (8.4-10.2); Carbon Dioxide 27 mmol/L (22-29); Chloride 109 mmol/L (96-108); Creatinine Clr Calc Pharmacy 95.3; Estimated Glomerular Filt Rate > 60; Glucose Random 100 mg/dL (60-115); Potassium 4.8 mmol/L (3.3-5.1); Sodium 142 mmol/L (135-145)
[2022-07-27] MEDS: Heparin Sodium,Porcine 5,000 UNIT/ML VIAL 3800 UNIT IVPUSH (17:53)
[2022-07-27] MEDS: Heparin Sodium,Porcine/1/2NS 25,000 UNIT/250 ML IV.SOLN 13.32 UNIT IVCONT (17:57)
[2022-07-27 18:08] VITALS: BP 123/68; PULSE 61; RESP 13; TEMP 36.9; O2SAT 100
--- NOTE | 2022-07-27 19:10 | PHA.MEDREC ---
Pharmacy Consult ? Medication Reconciliation Pharmacy has completed the medication reconciliation.
--- NOTE | 2022-07-27 19:29 | P.HPHOSP_ITS ---
History of Present Illness Date of Service: 07/27/22 Chief Complaint: Left leg DVT This is a 52-year-old female with pertinent history of hypothyroidism, obesity, osteoarthritis, venous insufficiency who presents to the emergency department evaluation and treatment of DVT diagnosed on outpatient ultrasound. Patient states she was having left lower extremity pain, swelling, redness that started 2 weeks prior to presentation. It was constant and without any relieving factors, worse with ambulation. No history of blood clots in the past. No history of PE or DVT. Patient does say that her sister has a clotting disorder but does not know the details. Traveled to [place] in april. Patient is on oral OCPs. She denies nausea, vomiting, fever, chills, chest discomfort, palpitations, shortness of breath, changes in urinary or bowel habits. In the emergency department, vascular surgery was consulted who recommended admission and will evaluate the patient in a.m. Review of Systems Constitutional: Constitutional: Reports no additional constitutional complaints Cardiovascular: Cardiovascular: Reports no additional cardiovascular complaints Respiratory: Respiratory: Reports no additional respiratory complaints Gastrointestinal: Gastrointestinal: Reports no additional gastrointestinal complaints Genitourinary: Genitourinary: Reports no additional female genitourinary complaints [facility] Medical History Class 1 obesity with body mass index (BMI) of 34.0 to 34.9 in adult Constipation by delayed colonic transit Hypothyroidism Hypothyroidism Hypovitaminosis D Left shoulder pain Obesity Osteoarthritis of left knee Pancytopenia Physical exam Thrombocytopenia Toenail deformity Family History Father Diabetes CVD (cardiovascular disease) Myocardial infarction Mother CVD (cardiovascular disease) Hypertension Maternal Grandmother No problems noted. Maternal Grandfather Prostate cancer Family/Other Mental health disorder Surgical History H/O gastric sleeve History of arthroscopy of left knee History of section History of cholecystectomy History of surgery Venous insufficiency of left leg Social History Household Members: Spouse and Children Housing: House Are you a primary day care center director to a significant other at home: No Do you presently have visiting nurse or other home services: No Alcohol intake: never Patient Tobacco Use Status: Never used Tobacco e-Cigarette/Vaping Use: Never Used Second Hand Smoke Exposure: No Advance Directives: No Advance Directives Information Provided: No service: No Current occupational status: employed Current occupational exposures/hazards: No Cognitive needs: No Hearing needs: No Vision needs: Yes Meds Allergies Allergy/AdvReac Type Severity Reaction Status Date / Time lactose Allergy Intermediate diarrhea Verified 06/28/22 08:23 oxycodone AdvReac Mild Vomiting, Verified 06/28/22 08:23 stomach pain Active Medications: Current Medications Heparin Sodium (Porcine) (Heparin Sodium,Porcine 5,000 Unit/Ml Vial) 3,800 unit 40 unit/kg (3800 unit) IVPUSH PROTOCOL BOLUS PRN; Protocol PRN Reason: 40 unit/kg - Heparin Protocol Heparin Sodium (Porcine) (Heparin Sodium,Porcine 5,000 Unit/Ml Vial) 7,600 unit 80 unit/kg (7600 unit) IVPUSH PROTOCOL BOLUS PRN; Protocol PRN Reason: 80 unit/kg - Heparin Protocol Heparin Sodium/Sodium Chloride (Heparin Sodium,Porcine/1/2ns) 25,000 unit in 250 mls @ 0 mls/hr IVCONT .Q0M AKOSUA; Protocol Last Admin: 07/27/22 17:57 Dose: 14 units/kg/hr, 13.32 mls/hr Home Medications Medication Instructions Recorded Confirmed Last Taken Type norethindrone 1 mg-ethinyl 1 tab PO DAILY 01/29/20 07/27/22 Unknown History estradiol 20 mcg (21)-iron 75 mg (7) tablet multivitamin 1 tab PO DAILY 09/09/20 07/27/22 Unknown History meloxicam 15 mg tablet 15 mg PO DAILY PRN OSTEOARTHRITIS 05/05/22 07/27/22 Unknown History tramadol 50 mg tablet 50 mg PO BID PRN OSTEOARTHRITIS 07/27/22 07/27/22 Unknown History Physical Exam Vital Signs and Narrative: Vital Signs: Last Vital Signs Temp 98.5 F 07/27/22 18:08 Pulse 61 07/27/22 18:08 Resp 13 07/27/22 18:08 BP 123/68 07/27/22 18:08 Pulse Ox 100 07/27/22 18:08 O2 Del Method Room Air 07/27/22 18:08 BMI result Body Mass Index 36.0 Middle-aged female lying in bed in no distress Neck supple, no JVD Regular rate and rhythm, S1-S2 heard Regular breath sounds bilaterally, no wheezing or crackles appreciated Abdomen soft nontender, no guarding, no rigidity Patient is awake, alert and oriented to self, place, time and person ; no focal motor deficit Extremity: Left calf with swelling, erythema and mild tenderness Psych: Normal mood No pedal edema Results Labs 07/27/22 16:06 07/27/22 17:12 Labs: Laboratory Results - last 24 hr 07/27/22 07/27/22 07/27/22 16:06 16:06 16:06 MCV 90.3 MCH 29.1 MCHC 32.2 RDW 12.4 Plt Count 108 L MPV 12.5 H Immature Gran % (Auto) 0.2 Neut % (Auto) 71.2 Lymph % (Auto) 19.3 L [place] % (Auto) 6.1 Eos % (Auto) 2.2 Baso % (Auto) 1.0 Lymph # (Auto) 1.1 L [place] # (Auto) 0.4 Eos # (Auto) 0.1 Baso # (Auto) 0.1 Abs Immat Gran (auto) 0.01 Absolute Neuts (auto) 4.2 Absolute Nucleated RBC 0.000 Nucleated RBC % (auto) 0.0 PT 10.2 INR 0.9 APTT 25.6 L Anion Gap 10 L Estim Creat Clear Calc 95.1 Estimated GFR > 60 Random Glucose 108 Calcium 9.4 B-Natriuretic Peptide 07/27/22 07/27/22 16:06 17:12 MCV MCH MCHC RDW Plt Count MPV Immature Gran % (Auto) Neut % (Auto) Lymph % (Auto) [place] % (Auto) Eos % (Auto) Baso % (Auto) Lymph # (Auto) [place] # (Auto) Eos # (Auto) Baso # (Auto) Abs Immat Gran (auto) Absolute Neuts (auto) Absolute Nucleated RBC Nucleated RBC % (auto) PT INR APTT Anion Gap 11 L Estim Creat Clear Calc 95.3 Estimated GFR > 60 Random Glucose 100 Calcium 9.5 B-Natriuretic Peptide 61 Assessment and Plan (1) Acute deep vein thrombosis (DVT) of left lower extremity: Status: Acute Plan This is a 52-year-old female with pertinent history of hypothyroidism, obesity, osteoarthritis, venous insufficiency who presents to the emergency department evaluation and treatment of DVT diagnosed on outpatient ultrasound. #. Acute left lower extremity DVT. Risk factors include obesity and use of OCPs. Also had a procedure for venous insufficiency on left leg. Will benefit from outpatient Heme-Onc follow-up. Initiated on IV heparin. Vascular surgery was consulted from the ER who will evaluate the patient for thrombectomy. Will keep patient NPO after midnight #. Hypothyroidism: On synthroid #. Obesity: Counseled regarding diet and exercise DVT prophylaxis: Heparin drip Npo after midnight Full code Admit as inpatient for possible thrombectomy. Specialist consult pending. Time Spent With Patient Time: Total time managing care of this patient today ____ minutes. Quality Stroke Does the patient have a stroke diagnosis?: No VTE Prior VTE?: No VTE Risk Level:: Medical - moderate - high VTE Device Contraindication: Treatment Not Indicated VTE Drug Contraindication: N/A - Med Ordered
[2022-07-27 19:52] VITALS: BP 121/64; PULSE 57; RESP 17; TEMP 36.8; O2SAT 100
--- NOTE | 2022-07-27 21:35 | PC.NURSE ---
pt needed to use restroom educated pt on c/i of ambulating DVT+ pt now aware bedside commode provided
[2022-07-27] MEDS: 0.9 % Sodium Chloride 1,000 ML 100 ML IVCONT (22:12)
--- NOTE | 2022-07-28 00:12 | PC.NURSE ---
Report given to to HERIBERTO Paredes aware PTT is due and that pt is currently on heparin drip rate of 14 pt to go to rm 360 aox4 no apparent distress resting comfortably
[2022-07-28 01:05] LABS: PTT Heparin Drip 122.3 SEC (53-77.9)
--- NOTE | 2022-07-28 01:07 | PC.NURSE ---
heparin drip on paused per protocol lab result for PTT 122.3
[2022-07-28 02:41] VITALS: BP 139/70; PULSE 60; RESP 16; TEMP 36; O2SAT 100
[2022-07-28 02:59] LABS: PTT Heparin Drip 57.8 SEC (53-77.9)
[2022-07-28 04:01] VITALS: BMI 36.3
[2022-07-28] MEDS: Levothyroxine Sodium 25 MCG TABLET PO (05:13)
[2022-07-28 06:23] LABS: MANUAL DIFF FLAG NO
[2022-07-28 06:38] LABS: Basophils Absolute Auto 0.1 X10*3/uL (0.0-0.2); Basophils Percent Auto 1.3 % (0-2); Eosinophils Absolute Auto 0.2 X10*3/uL (0.0-0.4); Eosinophils Percent Auto 4.7 % (0-4); Hematocrit 38.1 % (37.0-47.0); Lymphocytes Absolute Auto 1.6 X10*3/uL (1.2-4.9); Lymphocytes Percent Auto 34.8 % (20-40); Mean Corpuscular HGB Conc 31.5 g/dl (31.0-35.0); Mean Corpuscular Hemoglobin 28.3 pg (27.0-33.0); Mean Corpuscular Volume 89.9 fL (80.0-98.0); Mean Platelet Volume 13.1 fL (9.4-12.3); Monocytes Absolute Auto 0.4 X10*3/uL (0.1-1.2); Neutrophils Absolute Auto 2.4 x10*3/uL (2.0-8.3); Neutrophils Percent Auto 50.2 % (45-73); Red Blood Count 4.24 X10*6/uL (4.20-5.50); Red Cell Distribution Width 12.5 % (11.0-16.0); White Blood Count 4.7 X10*3/uL (4.8-10.8)
[2022-07-28 06:39] LABS: Platelet Count 85 X10*3/uL (160-400)
[2022-07-28 07:02] LABS: Anion Gap 10 (12-20); Blood Urea Nitrogen 14 mg/dL (9-16); Calcium 8.6 mg/dL (8.4-10.2); Carbon Dioxide 24 mmol/L (22-29); Chloride 111 mmol/L (96-108); Creatinine Clr Calc Pharmacy 116.4; Estimated Glomerular Filt Rate > 60; Glucose Random 81 mg/dL (60-115); Potassium 4.2 mmol/L (3.3-5.1); Sodium 141 mmol/L (135-145)
[2022-07-28 07:07] VITALS: BP 128/76; PULSE 78; RESP 18; TEMP 36.7; O2SAT 99
--- NOTE | 2022-07-28 07:51 | P.CONGS_ITS ---
History of Present Illness Consult details Consult date: 07/28/22 Reason for consult: other (DVT) Narrative: Very pleasant 52-year-old female with a history of prior gastric bypass presented with acute onset left lower extremity DVT. She noted that it happened over the past weaker to verdin uncomfortable feeling on the left lower extremity it tended to persist. She presented to her primary care will get an outpatient ultrasound with a DVT was discovered in she was subsequently admitted. Upon further discussion she has no history of prior DVTs inclusive of her family. She does have a prior history of venous insufficiency where she reportedly had a venous ablation on the left lower extremity by Dr. Castaneda dating back to 2019. She has been seen by Hematology Oncology for chronic anemia. Other than that has been doing fairly well and has progressively lost weight after her gastric bypass. She was found to have this acute DVT. She was started on heparin GTT. She was subsequently admitted in now for evaluation. Review of Systems Constitutional: Constitutional: Reports as per HPI ENT: Reports system reviewed and no additional complaints, except as documented Cardiovascular: Cardiovascular: Denies chest pain, Denies chest pain at rest and Denies chest pain with activity Respiratory: Respiratory: Denies chest congestion and Denies cough Gastrointestinal: Gastrointestinal: Reports no additional gastrointestinal complaints Musculoskeletal: Musculoskeletal: Denies abnormal gait Integumentary/Breasts: Skin/Breast: Reports pruritus and Denies wounds Neurologic: Reports system reviewed and no additional complaints, except as documented and Denies abnormal gait Psychiatric: Psychiatric: Denies no additional psychiatric complaints [facility] Past Medical History Medical History Class 1 obesity with body mass index (BMI) of 34.0 to 34.9 in adult Constipation by delayed colonic transit Hypothyroidism Hypothyroidism Hypovitaminosis D Left shoulder pain Obesity Osteoarthritis of left knee Pancytopenia Physical exam Thrombocytopenia Toenail deformity Family History Family History Father Diabetes CVD (cardiovascular disease) Myocardial infarction Mother CVD (cardiovascular disease) Hypertension Maternal Grandmother No problems noted. Maternal Grandfather Prostate cancer Family/Other Mental health disorder Surgical History Surgical History H/O gastric sleeve History of arthroscopy of left knee History of section History of cholecystectomy History of surgery Venous insufficiency of left leg Social History Social History Household Members: Spouse and Children Housing: House Are you a primary medicare nurse to a significant other at home: No Do you presently have visiting nurse or other home services: No Alcohol intake: never Patient Tobacco Use Status: Never used Tobacco e-Cigarette/Vaping Use: Never Used Second Hand Smoke Exposure: No service: No Current occupational status: employed Current occupational exposures/hazards: No Cognitive needs: No Hearing needs: No Vision needs: Yes Meds Allergies Allergy/AdvReac Type Severity Reaction Status Date / Time lactose Allergy Intermediate diarrhea Verified 06/28/22 08:23 oxycodone AdvReac Mild Vomiting, Verified 06/28/22 08:23 stomach pain Active Medications: Current Medications Acetaminophen (Acetaminophen 325 Mg Tablet) 650 mg PO Q6H PRN PRN Reason: Pain, Mild (Pain Scale 1-3) Cyclobenzaprine HCl (Cyclobenzaprine Hcl 10 Mg Tablet) 10 mg PO TID PRN PRN Reason: muscle spasm Heparin Sodium (Porcine) (Heparin Sodium,Porcine 5,000 Unit/Ml Vial) 3,800 unit 40 unit/kg (3800 unit) IVPUSH PROTOCOL BOLUS PRN; Protocol PRN Reason: 40 unit/kg - Heparin Protocol Heparin Sodium (Porcine) (Heparin Sodium,Porcine 5,000 Unit/Ml Vial) 7,600 unit 80 unit/kg (7600 unit) IVPUSH PROTOCOL BOLUS PRN; Protocol PRN Reason: 80 unit/kg - Heparin Protocol Heparin Sodium/Sodium Chloride (Heparin Sodium,Porcine/1/2ns) 25,000 unit in 250 mls @ 0 mls/hr IVCONT .Q0M AKOSUA; Protocol Last Titration: 07/28/22 03:20 Dose: 10 units/kg/hr, 9.52 mls/hr Sodium Chloride (Ns) 1,000 mls @ 100 mls/hr IVCONT .Q10H [facility] Last Admin: 07/27/22 22:12 Dose: 100 mls/hr Levothyroxine Sodium (Levothyroxine Sodium 25 Mcg Tablet) 25 mcg PO DAILY@0600 [facility] Last Admin: 07/28/22 05:13 Dose: 25 mcg Melatonin (Melatonin 3 Mg Tablet) 6 mg PO BEDTIME PRN PRN Reason: Insomnia Multivitamins/Vitamin C (Multivitamin Tablet) 1 tab PO DAILY [facility] Naproxen (Naproxen 500 Mg Tablet) 500 mg PO BID PRN PRN Reason: OSTEOARTHRITIS Ondansetron HCl (Ondansetron Hcl 4 Mg/2 Ml Vial) 4 mg IVPUSH Q8H PRN PRN Reason: Nausea and Vomiting Sodium Chloride (0.9 % Sodium Chloride Flush 3 Ml Syringe) 3 ml IVFLUSH QSHIFT [facility] Last Admin: 07/28/22 00:17 Dose: Not Given Tramadol HCl (Tramadol Hcl 50 Mg Tablet) 50 mg PO BID PRN PRN Reason: OSTEOARTHRITIS Home Medications Medication Instructions Recorded Confirmed Last Taken Type norethindrone 1 mg-ethinyl 1 tab PO DAILY 01/29/20 07/27/22 Unknown History estradiol 20 mcg (21)-iron 75 mg (7) tablet multivitamin 1 tab PO DAILY 09/09/20 07/27/22 Unknown History meloxicam 15 mg tablet 15 mg PO DAILY PRN OSTEOARTHRITIS 05/05/22 07/27/22 Unknown History tramadol 50 mg tablet 50 mg PO BID PRN OSTEOARTHRITIS 07/27/22 07/27/22 Unknown History Physical Exam Vital Signs: Vital Signs: Last Vital Signs Temp 98.1 F 07/28/22 07:07 Pulse 78 07/28/22 07:07 Resp 18 07/28/22 07:07 BP 128/76 07/28/22 07:07 Pulse Ox 99 07/28/22 07:07 O2 Del Method Room Air 07/28/22 07:07 BMI result Body Mass Index 36.3 Const: General: cooperative, healthy appearing and comfortable Orientation/consciousness: oriented to person, oriented to place and oriented to time Neck: Carotids: no bruits Chest: Chest palpation & inspection: normal inspection of the chest and normal palpation of entire chest wall Resp: Effort & Inspection: normal respiratory effort and able to speak in co mplete sentences Cardio: Rate: regular rate Heart sounds: S1 normal heart sound present and S2 normal heart sound present Peripheral pulses: Peripheral pulses 2+ throughout GI: Inspection: Yes normal to inspection Skin: Other: +2 edema, CEAP Classification C4 - skin color changes Ep - Etiology Primary As - superficial veins P - reflux General skin exam: dry skin Neuro: General: oriented to person, oriented to place and oriented to time Extrem: Right lower extremity: full ROM, normal capillary refill and edema Left lower extremity: full ROM, normal capillary refill and edema Psych: Mental Status: mental status grossly normal Results Labs 07/28/22 05:17 07/28/22 05:17 Labs: Abnormal lab results 07/27/22 07/27/22 07/27/22 Range/Units 16:06 16:06 16:06 WBC (4.8-10.8) X10*3/uL Plt Count 108 L (160-400) X10*3/uL MPV 12.5 H (9.4-12.3) fL Lymph % (Auto) 19.3 L (20-40) % Eos % (Auto) (0-4) % Lymph # (Auto) 1.1 L (1.2-4.9) X10*3/uL APTT 25.6 L (26.0-36.4) SEC aPTT Heparin Protocol (53-77.9) SEC Potassium 5.3 H (3.3-5.1) mmol/L Chloride 109 H (96-108) mmol/L Anion Gap 10 L (12-20) BUN 20 H (9-16) mg/dL 07/27/22 07/28/22 07/28/22 Range/Units 17:12 00:17 05:17 WBC 4.7 L (4.8-10.8) X10*3/uL Plt Count 85 L (160-400) X10*3/uL MPV 13.1 H (9.4-12.3) fL Lymph % (Auto) (20-40) % Eos % (Auto) 4.7 H (0-4) % Lymph # (Auto) (1.2-4.9) X10*3/uL APTT (26.0-36.4) SEC aPTT Heparin Protocol 122.3 H* (53-77.9) SEC Potassium (3.3-5.1) mmol/L Chloride 109 H (96-108) mmol/L Anion Gap 11 L (12-20) BUN 20 H (9-16) mg/dL 07/28/22 Range/Units 05:17 WBC (4.8-10.8) X10*3/uL Plt Count (160-400) X10*3/uL MPV (9.4-12.3) fL Lymph % (Auto) (20-40) % Eos % (Auto) (0-4) % Lymph # (Auto) (1.2-4.9) X10*3/uL APTT (26.0-36.4) SEC aPTT Heparin Protocol (53-77.9) SEC Potassium (3.3-5.1) mmol/L Chloride 111 H (96-108) mmol/L Anion Gap 10 L (12-20) BUN (9-16) mg/dL Garibaldi CBC 07/27/22 07/28/22 Range/Units 16:06 05:17 WBC 5.9 4.7 L (4.8-10.8) X10*3/uL Hgb 12.9 12.0 (12.0-16.0) g/dl Hct 40.1 38.1 (37.0-47.0) % Plt Count 108 L 85 L (160-400) X10*3/uL BMP 07/27/22 07/27/22 07/28/22 16:06 17:12 05:17 Sodium 141 142 141 Potassium 5.3 H 4.8 4.2 Chloride 109 H 109 H 111 H Carbon Dioxide 27 27 24 BUN 20 H 20 H 14 Creatinine 0.78 0.79 0.65 Calcium 9.4 9.5 8.6 D All other labs normal. Imaging Additional studies: Ultrasound dated 07/27/2022 demonstrates left superficial femoral vein and popliteal DVT Assessment and Plan (1) Acute deep vein thrombosis (DVT) of left lower extremity: Status: Acute Plan In short patient has an acute left lower extremity DVT. The patient does have some mild swelling and discomfort. Due to the clot burden we will plan for venous thrombectomy and possible IVC filter placement. Risks benefits complications were discussed in detail with the patient. She understood consented and would like to move forward. Patient is NPO and will plan for case later today. Time Spent With Patient Time: Total time managing care of this patient today ____ minutes. Procedures Date of Service Date of Service: 07/28/22
[2022-07-28 10:37] LABS: PTT Heparin Drip 63.4 SEC (53-77.9)
[2022-07-28 12:05] VITALS: BP 119/59; PULSE 62; RESP 14; TEMP 37.1; O2SAT 98
--- NOTE | 2022-07-28 12:14 | P.OP_ITS ---
Operative Note Operative Note Date of Service: 07/28/22 Narrative: Angiogram report from [facility] Preoperative diagnosis: DVT Postoperative diagnosis: Same Procedure: 1. Ultrasound-guided left popliteal vein 2. Inferior vena cavogram 3. Percutaneous transluminal venous mechanical thrombectomy (06024) 4. Radiological supervision and interpretation Surgeon:Nolan Chase M.D., FACS, RPVI Operations Officer Trust Department:None Anesthesia: Local with moderate conscious sedation. Total intraservice moderate sedation time was 53 minutes. I monitored the patient's level of consciousness and physiologic status continuously throughout the procedure. Specimens:none Drains:none Estimated blood loss: Less than 10 ml Implant: None Indications: Pleasant 52-year-old female who presented with acute left lower extremity DVT yesterday evening in the emergency room. She was started on heparin drip. She now presents for thrombectomy. The patient has signed the informed consent after reviewing risks, complications, benefits, and alternatives previously discussed with the patient. The patient was given the opportunity to ask any additional questions or voice any concerns. All questions were answered to the patient's satisfaction. Procedure in detail: Patient was brought to the angiography suite prior to which a time-out was called for patient identification and site verification. The patient was placed in a prone position. Bilateral popliteal fossas were prepped and draped in the standard surgical fashion we 1st accessed the left popliteal vein under ultrasound guidance. We then placed a percutaneous 4 [place] sheath. We were then able to traverse the clot with a Glidewire Advantage 035. We brought a E now be cross catheter to confirmed true lumen. At this time we gave 5000 units of systemic heparin. We dilated up the trach with an 8 [place], 10 [place], 12 [place], 16 [place] and finally 18 [place] dilators. We then brought in the Clot Triever system over the wire. We then placed the sheath and expose the self expanding Nitinol mesh final to facilitate clot removal for large bore side port rapid aspiration. Once this was accomplished we then advanced over the wire that clot triever catheter with its coring element in braided collection bad. This was brought into the common femoral vein in to the superficial femoral vein above in to the vena cava up pass the occlusion and extracted back. We did 4 sequential passes. The main angle was placed at 12:00 o'clock 03:00 o'clock 06:00 o'clock and 09:00 o'clock positions. After eat subsequent pass the clot was removed and it was flushed clear and then we brought it back in through this area. Completion vena cavogram, and imaging of superficial femoral vein demonstrated an excellent result. We subsequently removed catheter wire and sheath. We held 10 minutes direct pressure. We then placed epi fix as a sterile dressing. Patient tolerated the procedure well and returned to recovery with stable vitals. Interpretation of films: 1. Ultrasound demonstrates appropriate popliteal vein puncture. Image of which was saved. 2. Vena cavogram demonstrated no significant disease or thrombus 3. Left Leg We identified superficial femoral vein and popliteal vein thrombus. There is minimal chronic thrombus in the common femoral vein. Completion vena cavogram and runoff demonstrated excellent result with complete removal of thrombus. Conclusion: 1. Successful clot removal of left venous system. 2. Anticoagulation status: Resume heparin drip and patient will be placed on formal anticoagulation This note is constructed using voice recognition software. While every effort has been made to ensure accuracy, whipped topping supervisor errors may have been included. Thank you for allowing me to participate in the care of your patient. Yours sincerely, Nolan Chase MD, FACS, R.P.V.I.
[2022-07-28 12:20] VITALS: BP 114/59; PULSE 61; RESP 14; TEMP 36.9; O2SAT 98
--- NOTE | 2022-07-28 13:13 | MHC.CM.PN ---
FEMALE 52 DX DVT S/P THROMBECTOMY LIVES W SPOUSE. INDEPENDENT ALL FUNCTIONAL MOBILITY. NO AD VAXXED X3 REQUESTED COPY OF HCP DP HOME SELF CARE. PATIENTS SPOUSE WILL PROVIDE TRANSPORT HOME.
--- NOTE | 2022-07-28 14:05 | HO.PM.IMPN ---
Subjective Subjective Date of Service: 07/28/22 Interval History: Seen postprocedure periods doing well after thrombectomy. Pain control adequate Review of Systems Denies chest pain Denies shortness of breath Denies nausea vomiting diarrhea Denies fever chills Physical Exam Vital Signs: Vital Signs: Last Vital Signs Temp 98.5 F 07/28/22 12:20 Pulse 61 07/28/22 12:20 Resp 14 07/28/22 12:20 BP 114/59 L 07/28/22 12:20 Pulse Ox 98 07/28/22 12:20 O2 Del Method Room Air 07/28/22 12:20 BMI result Body Mass Index 36.3 Const: Other: Resting comfortably in bed Resp: Other: Clear to auscultation bilaterally. No rales rhonchi or wheezes Cardio: Other: No S4; positive S1-S2; no S3 murmurs rubs or gallops GI: Other: Soft nontender nondistended normoactive bowel sounds Extrem: Other: No edema bilaterally Objective Data Active Medications Acetaminophen (Acetaminophen 325 Mg Tablet) 650 mg PO Q6H PRN PRN Reason: Pain, Mild (Pain Scale 1-3) Cyclobenzaprine HCl (Cyclobenzaprine Hcl 10 Mg Tablet) 10 mg PO TID PRN PRN Reason: muscle spasm Heparin Sodium (Porcine) (Heparin Sodium,Porcine 5,000 Unit/Ml Vial) 3,800 unit 40 unit/kg (3800 unit) IVPUSH PROTOCOL BOLUS PRN; Protocol PRN Reason: 40 unit/kg - Heparin Protocol Heparin Sodium (Porcine) (Heparin Sodium,Porcine 5,000 Unit/Ml Vial) 7,600 unit 80 unit/kg (7600 unit) IVPUSH PROTOCOL BOLUS PRN; Protocol PRN Reason: 80 unit/kg - Heparin Protocol Heparin Sodium/Sodium Chloride (Heparin Sodium,Porcine/1/2ns) 25,000 unit in 250 mls @ 0 mls/hr IVCONT .Q0M AKOSUA; Protocol Last Titration: 07/28/22 03:20 Dose: 10 units/kg/hr, 9.52 mls/hr Documented By: BHAVYA Co-signed By: BISI Sodium Chloride (Ns) 1,000 mls @ 100 mls/hr IVCONT .Q10H [facility] Last Admin: 07/28/22 09:29 Dose: Not Given Documented By: PIA Non-Admin Reason: IV Running Levothyroxine Sodium (Levothyroxine Sodium 25 Mcg Tablet) 25 mcg PO DAILY@0600 [facility] Last Admin: 07/28/22 05:13 Dose: 25 mcg Documented By: BHAVYA Melatonin (Melatonin 3 Mg Tablet) 6 mg PO BEDTIME PRN PRN Reason: Insomnia Multivitamins/Vitamin C (Multivitamin Tablet) 1 tab PO DAILY [facility] Last Admin: 07/28/22 09:42 Dose: Not Given Documented By: PIA Non-Admin Reason: pt at test Naproxen (Naproxen 500 Mg Tablet) 500 mg PO BID PRN PRN Reason: OSTEOARTHRITIS Ondansetron HCl (Ondansetron Hcl 4 Mg/2 Ml Vial) 4 mg IVPUSH Q8H PRN PRN Reason: Nausea and Vomiting Sodium Chloride (0.9 % Sodium Chloride Flush 3 Ml Syringe) 3 ml IVFLUSH QSHIFT [facility] Last Admin: 07/28/22 09:30 Dose: Not Given Documented By: PIA Non-Admin Reason: IV Running Tramadol HCl (Tramadol Hcl 50 Mg Tablet) 50 mg PO BID PRN PRN Reason: OSTEOARTHRITIS Labs 07/28/22 05:17 07/28/22 05:17 Labs: Laboratory Results - last 24 hr 07/27/22 07/27/22 07/27/22 16:06 16:06 16:06 MCV 90.3 MCH 29.1 MCHC 32.2 RDW 12.4 Plt Count 108 L MPV 12.5 H Immature Gran % (Auto) 0.2 Neut % (Auto) 71.2 Lymph % (Auto) 19.3 L [place] % (Auto) 6.1 Eos % (Auto) 2.2 Baso % (Auto) 1.0 Lymph # (Auto) 1.1 L [place] # (Auto) 0.4 Eos # (Auto) 0.1 Baso # (Auto) 0.1 Abs Immat Gran (auto) 0.01 Absolute Neuts (auto) 4.2 Absolute Nucleated RBC 0.000 Nucleated RBC % (auto) 0.0 PT 10.2 INR 0.9 APTT 25.6 L aPTT Heparin Protocol Anion Gap 10 L Estim Creat Clear Calc 95.1 Estimated GFR > 60 Random Glucose 108 Calcium 9.4 B-Natriuretic Peptide 07/27/22 07/27/22 07/28/22 16:06 17:12 00:17 MCV MCH MCHC RDW Plt Count MPV Immature Gran % (Auto) Neut % (Auto) Lymph % (Auto) [place] % (Auto) Eos % (Auto) Baso % (Auto) Lymph # (Auto) [place] # (Auto) Eos # (Auto) Baso # (Auto) Abs Immat Gran (auto) Absolute Neuts (auto) Absolute Nucleated RBC Nucleated RBC % (auto) PT INR APTT aPTT Heparin Protocol 122.3 H* Anion Gap 11 L Estim Creat Clear Calc 95.3 Estimated GFR > 60 Random Glucose 100 Calcium 9.5 B-Natriuretic Peptide 61 07/28/22 07/28/22 07/28/22 02:39 05:17 05:17 MCV 89.9 MCH 28.3 MCHC 31.5 RDW 12.5 Plt Count 85 L MPV 13.1 H Immature Gran % (Auto) 0.0 Neut % (Auto) 50.2 Lymph % (Auto) 34.8 [place] % (Auto) 9.0 Eos % (Auto) 4.7 H Baso % (Auto) 1.3 Lymph # (Auto) 1.6 [place] # (Auto) 0.4 Eos # (Auto) 0.2 Baso # (Auto) 0.1 Abs Immat Gran (auto) 0.00 Absolute Neuts (auto) 2.4 Absolute Nucleated RBC 0.000 Nucleated RBC % (auto) 0.0 PT INR APTT aPTT Heparin Protocol 57.8 D Anion Gap 10 L Estim Creat Clear Calc 116.4 Estimated GFR > 60 Random Glucose 81 Calcium 8.6 D B-Natriuretic Peptide 07/28/22 10:07 MCV MCH MCHC RDW Plt Count MPV Immature Gran % (Auto) Neut % (Auto) Lymph % (Auto) [place] % (Auto) Eos % (Auto) Baso % (Auto) Lymph # (Auto) [place] # (Auto) Eos # (Auto) Baso # (Auto) Abs Immat Gran (auto) Absolute Neuts (auto) Absolute Nucleated RBC Nucleated RBC % (auto) PT INR APTT aPTT Heparin Protocol 63.4 Anion Gap Estim Creat Clear Calc Estimated GFR Random Glucose Calcium B-Natriuretic Peptide Assessment and Plan (1) Acute deep vein thrombosis (DVT) of left lower extremity: Status: Acute (2) Hypothyroidism: Status: Acute Plan This is a 52-year-old female with pertinent history of hypothyroidism, obesity, osteoarthritis, venous insufficiency who presents to the emergency department evaluation and treatment of DVT diagnosed on outpatient ultrasound; s/p LLE thrombectomy earlier today without issue 1. Acute left lower extremity DVT -thrombectomy without issue -continue heparin drip overnight -switch to oral anticoagulation at vascular's recommendation 2.Hypothyroidism -outpatient Synthroid dosing Heparin drip Full code Requires ongoing hospitalization to maintain heparin drip after emergent thrombectomy Time Spent With Patient Time: Total time managing care of this patient today ____ minutes. Quality Stroke Does the patient have a stroke diagnosis?: No VTE Prior VTE?: No VTE Risk Level:: Medical - moderate - high VTE Device Contraindication: Treatment Not Indicated VTE Drug Contraindication: N/A - Med Ordered
[2022-07-28 15:39] VITALS: BP 131/61; PULSE 62; RESP 18; TEMP 36.8; O2SAT 100
[2022-07-28] MEDS: Heparin Sodium,Porcine/1/2NS 25,000 UNIT/250 ML IV.SOLN 9.52 UNIT IVCONT (17:48)
--- NOTE | 2022-07-28 18:11 | PC.NURSE ---
Heparin Rate at start of shift 0645 10units/kg/hr. PTT resulted at 1050 for 63.4, per protocol rate will not change, next PTT 0800 07/30/23. Pt off the unit for procedure with MD Chase in AM, instructed to keep gtt running for procedure, when pt returned to unit at approximately 1300 ordered for hep gtt rate to remain unchanged at 10units/kg/hr.
[2022-07-28 19:26] VITALS: BP 109/54; PULSE 59; RESP 16; TEMP 36.4; O2SAT 100
[2022-07-28] MEDS: traMADoL HCL 50 MG TABLET PO (19:32)
[2022-07-28] MEDS: 0.9 % Sodium Chloride 1,000 ML 100 ML IVCONT (20:18)
[2022-07-29 04:00] VITALS: BP 116/59; PULSE 69; RESP 14; TEMP 36.3; O2SAT 99
[2022-07-29] MEDS: 0.9 % Sodium Chloride 1,000 ML 100 ML IVCONT (04:47)
[2022-07-29] MEDS: Levothyroxine Sodium 25 MCG TABLET PO (06:22)
[2022-07-29 07:18] VITALS: BP 124/57; PULSE 53; RESP 15; TEMP 36.4; O2SAT 99
[2022-07-29 08:08] LABS: MANUAL DIFF FLAG NO
[2022-07-29 08:15] LABS: Basophils Absolute Auto 0.1 X10*3/uL (0.0-0.2); Basophils Percent Auto 1.4 % (0-2); Eosinophils Absolute Auto 0.3 X10*3/uL (0.0-0.4); Eosinophils Percent Auto 5.4 % (0-4); Hematocrit 41.9 % (37.0-47.0); Hemoglobin 13.1 g/dl (12.0-16.0); Imm Gran Abs Auto 0.01 X10*3/uL (0.00-0.03); Imm Gran Pct Auto 0.2 % (0.0-0.4); Lymphocytes Absolute Auto 1.7 X10*3/uL (1.2-4.9); Lymphocytes Percent Auto 33.3 % (20-40); Mean Corpuscular HGB Conc 31.3 g/dl (31.0-35.0); Mean Corpuscular Hemoglobin 28.7 pg (27.0-33.0); Mean Corpuscular Volume 91.7 fL (80.0-98.0); Mean Platelet Volume 12.8 fL (9.4-12.3); Monocytes Absolute Auto 0.4 X10*3/uL (0.1-1.2); Monocytes Percent Auto 7.1 % (2-11); Neutrophils Absolute Auto 2.6 x10*3/uL (2.0-8.3); Neutrophils Percent Auto 52.6 % (45-73); Platelet Count 119 X10*3/uL (160-400); Red Blood Count 4.57 X10*6/uL (4.20-5.50); Red Cell Distribution Width 12.6 % (11.0-16.0)
[2022-07-29 08:20] LABS: PTT Heparin Drip 78.9 SEC (53-77.9)
[2022-07-29 08:50] LABS: Alanine Aminotransferase 20 U/L (0-31); Albumin Level 3.6 g/dL (3.5-5.0); Alkaline Phosphatase 60 U/L (39-117); Anion Gap 13 (12-20); Aspartate Amino Transferase 18 U/L (5-31); Bilirubin Total 0.7 mg/dL (0.0-1.0); Blood Urea Nitrogen 12 mg/dL (9-16); Calcium 9.1 mg/dL (8.4-10.2); Carbon Dioxide 21 mmol/L (22-29); Chloride 112 mmol/L (96-108); Creatinine Clr Calc Pharmacy 102.3; Estimated Glomerular Filt Rate > 60; Glucose Fasting 81 mg/dL (60-99); Potassium 4.3 mmol/L (3.3-5.1); Sodium 142 mmol/L (135-145); Total Protein 6.6 g/dL (6.5-8.0)
--- NOTE | 2022-07-29 10:11 | P.PNVS_ITS ---
Subjective Subjective Date of Service: 07/29/22 Patient reports: no new complaints and feels better Interval history: Very pleasant 52-year-old postop day 1 status post left femoral vein thrombectomy. Appears to be doing relatively well. Swelling appears to be be tter. In general good spirits. Tolerating heparin GTT. Physical Exam Vital Signs: Vital Signs: Last Vital Signs Temp 97.5 F 07/29/22 07:18 Pulse 53 07/29/22 07:18 Resp 15 07/29/22 07:18 BP 124/57 L 07/29/22 07:18 Pulse Ox 99 07/29/22 07:18 O2 Del Method Room Air 07/29/22 07:18 BMI result Body Mass Index 36.3 Const: General: cooperative, healthy appearing and no acute distress Orientation/consciousness: oriented to person, oriented to place and oriented to time HEENT: Head: Yes normal to inspection Neck: Carotids: no bruits Chest: Chest palpation & inspection: normal inspection of the chest Resp: Effort & Inspection: normal respiratory effort and able to speak in complete sentences Auscultation: clear to auscultation bilaterally Cardio: Rate: regular rate Heart sounds: S1 normal heart sound present and S2 normal heart sound present GI: Inspection: Yes normal to inspection Skin: General skin exam: no rashes or lesions noted Wounds: no wounds Neuro: General: oriented to person, oriented to place, oriented to time and CN's II-XI intact bilaterally Extrem: General: Yes normal to inspection, Yes full ROM and Yes no clubbing, cyanosis or edema Psych: Appearance: grossly normal and well kempt Speech and movement: Normal speech and movement present Affect: normal affect Progress Note: A&P Assessment and plan (1) Acute deep vein thrombosis (DVT) of left lower extremity: Status: Acute Assessment and Plan: In short the patient has done well with left leg venous thrombectomy. At the current time the plan would be to transition over to oral anticoagulation. In addition I would recommend stopping oral contraceptives. She does have a history of anemia and thrombocytopenia and would recommend follow-up with Hematology-Oncology as well. She will follow up with us in 2 weeks once discharged. Thank you for allowing us to participate in the care of this patient. If there are any questions or concerns please do not hesitate to contact us. Time Spent With Patient Time: Total time managing care of this patient today ____ minutes. Procedures Date of Service Date of Service: 07/29/22 Quality Stroke Does the patient have a stroke diagnosis?: No VTE Prior VTE?: No VTE Risk Level:: Medical - moderate - high VTE Device Contraindication: Treatment Not Indicated VTE Drug Contraindication: N/A - Med Ordered
[2022-07-29] MEDS: Multivitamin TABLET 1 TAB PO (10:39)
--- NOTE | 2022-07-29 10:54 | PM.DS ---
DS: Providers Provider Date of Service: 07/29/22 Date of admission: 07/27/22 19:27 Date of discharge: 07/29/22 Primary care physician: Bonnie Ahn MD Consults: 07/27/22 19:27 Consult to Vascular Surgery Routine Consulting Provider: [facility] V[facility] Reason for consultation: left leg DVT DS: Diagnosis Discharge Diagnosis (1) Acute deep vein thrombosis (DVT) of left lower extremity: Status: Acute DS: Summary Hospital Course Hospital Course: 52-year-old female with pertinent history of? hypothyroidism, obesity, osteoarthritis, venous insufficiency who presents to the emergency department evaluation and treatment of DVT diagnosed on outpatient ultrasound.? Patient states she was having left lower extremity pain, swelling, redness that started 2 weeks prior to presentation.? It was constant and without any relieving factors, worse with ambulation.? No history of blood clots in the past.? No history of PE or DVT.? Patient does say that her sister has a clotting disorder but does not know the details. Traveled to [place] in april. Patient is on oral OCPs.? Hospital Course Patient admitted to general medical floor on heparin drip. Seen in consultation by vascular surgery; on 07/28/2022 she underwent a left lower extremity thrombectomy by Dr. Chase without complication. She remained on heparin overnight and switch to Eliquis in a.m. prior to discharge. Appointment has been made for follow-up with Dr. Ponce and the patient is medically acceptable for discharge. She questioned an upcoming trip to [place] August 10; discussed with Dr. Chase... We are both in agreement that she will be on the Eliquis and flying is not contraindicated. She understands were compression stockings and ambulate frequently Time Spent with Patient Time attestation: Total time managing care of this patient today ____ minutes. Discharge coordination time: Greater than 30 minutes Quality: Safe Use of Opioids Does Pt have an Active Cancer Diagnosis on the Problem List?: No Quality: Stroke Does the patient have a stroke diagnosis?: No Physical Exam Vital Signs: Vital Signs: Last Vital Signs Temp 97.5 F 07/29/22 07:18 Pulse 53 07/29/22 07:18 Resp 15 07/29/22 07:18 BP 124/57 L 07/29/22 07:18 Pulse Ox 99 07/29/22 07:18 O2 Del Method Room Air 07/29/22 07:18 BMI result Body Mass Index 36.3 Const: Other: Resting comfortably in bed Resp: Other: Clear to auscultation bilaterally. No rales rhonchi or wheezes Cardio: Other: No S4; positive S1-S2; no S3 murmurs rubs or gallops GI: Other: Soft nontender nondistended normoactive bowel sounds Extrem: Other: No edema bilaterally DS: Data Data Completed and Pending Labs on day of discharge: Laboratory Results - last 24 hr 07/29/22 07/29/22 07/29/22 08:00 08:00 08:00 WBC 5.0 RBC 4.57 Hgb 13.1 Hct 41.9 MCV 91.7 MCH 28.7 MCHC 31.3 RDW 12.6 Plt Count 119 L D MPV 12.8 H Immature Gran % (Auto) 0.2 Neut % (Auto) 52.6 Lymph % (Auto) 33.3 [place] % (Auto) 7.1 Eos % (Auto) 5.4 H Baso % (Auto) 1.4 Lymph # (Auto) 1.7 [place] # (Auto) 0.4 Eos # (Auto) 0.3 Baso # (Auto) 0.1 Abs Immat Gran (auto) 0.01 Absolute Neuts (auto) 2.6 Absolute Nucleated RBC 0.000 Nucleated RBC % (auto) 0.0 aPTT Heparin Protocol 78.9 H D Sodium 142 Potassium 4.3 Chloride 112 H Carbon Dioxide 21 L Anion Gap 13 BUN 12 Creatinine 0.74 Estim Creat Clear Calc 102.3 Estimated GFR > 60 Fasting Glucose 81 Calcium 9.1 Total Bilirubin 0.7 AST 18 ALT 20 Alkaline Phosphatase 60 Total Protein 6.6 Albumin 3.6 Discharge Plan Discharge Anticipated Discharge Date/Time: 07/29/22 10:37 Patient Disposition: Home, Self-Care Discharge Diagnosis: Acute deep vein thrombosis of left lower extremity Referrals: Bonnie Laura MD [Primary Care Provider] - 1 Week Discharge Medications: New Eliquis 5 mg tablet 10 mg PO BID Qty: 14 0RF Continued levothyroxine 25 mcg tablet 25 mcg PO QAM 90 Days Qty: 90 1RF multivitamin Tablet 1 tab PO DAILY tramadol 50 mg tablet 50 mg PO BID PRN (Reason: OSTEOARTHRITIS) cyclobenzaprine 10 mg tablet 10 mg PO TID PRN (Reason: muscle spasm) 30 Days Qty: 90 1RF meloxicam 15 mg tablet 15 mg PO DAILY PRN (Reason: OSTEOARTHRITIS) Discontinued norethindrone-e.estradiol-iron 1 mg-20 mcg (21)/75 mg (7) tablet 1 tab PO DAILY Discharge Orders: Discharge Order (Routine); Ordered 07/29/22 Ordered By: Heath Chamberlain Diet: Advance to usual diet Activity on Discharge: As tolerated Stand Alone Forms: Patient Portal Discharge page Care Plan Goals: Take Eliquis 2 tabs (10 mg) twice daily for 1 week. A 2nd script has been called into her pharmacy for Eliquis 5 mg twice daily to take until you are seen by Dr. Ponce Health Concerns: We need to stop her control pills. You are okay to fly on August 10 as scheduled; please wear compression socks and ambulate on the plane frequently Plan of Treatment: You have an appointment with Dr. Ponce 08/25/22 @ 3:30pm Assessment: See discharge summary
--- NOTE | 2022-07-29 11:08 | MHC.CM.PN ---
Female s/p Thobectomy is discharged to home today self care. She is discharged on Eliquis. AC therapy management education was provided. The Eliquis coupon was given to the patient. Patient verbalized understanding of all information provided. Her will provide a ride home at discharge.
[2022-07-29] MEDS: Apixaban 5 MG TABLET 10 MG PO (11:28)
== END 2022-07-29 12:29 | disposition home or self-care (01) | DRG 181 ==
LOC: HO.ED 19:09 → HO.EDOVER 19:31 → HO.S3 23:54
PROVIDERS: Physician Assistant; Physician Assistant Medical; Surgery Vascular Surgery; Admitting Provider Student in an Organized Health Care Education/Training Program; Emergency Provider Emergency Medicine; PCP Internal Medicine; Visit Provider Hospitalist
PROC: 04CN3ZZ Extirpation of Matter from Left Popliteal Artery, Percutaneous Approach (ICD-10-PCS; principal; 2022-07-28 09:00)
DX: I82.412 Acute embolism and thrombosis of left femoral vein (principal); I82.432 Acute embolism and thrombosis of left popliteal vein; I82.452 Acute embolism and thrombosis of left peroneal vein; Z68.36 Body mass index [BMI] 36.0-36.9, adult; E03.9 Hypothyroidism, unspecified; E66.9 Obesity, unspecified; Z79.3 Long term (current) use of hormonal contraceptives; Z79.890 Hormone replacement therapy; Z79.899 Other long term (current) drug therapy
CPT/HCPCS: 36415; 37187; 76937; 80048; 80053; 83880; 85025; 85610; 85730; 99152; 99153; 99284; C1757; C1769; C1887; C1894; J1643

== ENCOUNTER → 2022-08-31 09:01 | Outpatient (BNVA) | payer BC, SELFPAY | PROVIDERS: PCP Internal Medicine; Visit Provider Surgery Vascular Surgery ==

== ENCOUNTER 2022-11-29 07:59 | Outpatient (AMB) | payer BC, SELFPAY ==
--- NOTE | 2022-11-29 08:07 | MHC.PC.OV ---
Vital Signs 11/29/22 08:14 Height 5 ft 4 in Weight 217 lb BMI 37.2 BP 108/72 Blood Pressure Location Lt brachial Position Sitting Intake Visit Reasons: thyroid Intake Note: Patient here for a follow up thryoid Sales Activity Manager Required: No Accompanied by: Self / Same As Patient Allergies lactose Allergy (Intermediate, Verified 11/29/22 08:25) diarrhea oxycodone Adverse Reaction (Mild, Verified 11/29/22 08:25) Vomiting, stomach pain Medication List - Last Reconciled 11/29/22 by Bonnie Ahn MD apixaban (Eliquis) 5 mg PO BID azelastine 1 spray intranasal BID bupropion HCl 150 mg PO QAM cyclobenzaprine 10 mg PO TID PRN 30 days epinephrine (EpiPen) 0.3 mg IM Q4H PRN levothyroxine 25 mcg PO QAM 90 days multivitamin 1 tab PO DAILY naltrexone 50 mg PO DAILY tramadol 50 mg PO BID PRN Tobacco use date assessed: 06/28/22 Dental Screening Dental Screen Date: 11/29/22 Did you have a dental visit in the last 12 months?: Yes Did you have a dental problem in the last 6 months where you did not have access to dental care?: No Was dental information given to patient?: Patient has dentist HPI HPI Comments History of Present Illness Details This is a 52-year-old female with hypothyroidism, left knee osteoarthritis, chronic sinusitis and acute left leg DVT diagnosed on July 2022 that comes today follow-up her conditions. He has some mild goiter and ultrasound will be order. TSH will also be ordered. On tramadol as needed for knee osteoarthritis. Chronic sinusitis is follow by ENT and currently is on intranasal spray. On Eliquis for her left leg DVT which was most likely provoke by OCPs. Ultrasound of the leg will be repeated in and planning to complete 3-6 months of anticoagulation as per recommendation of Hematology-Oncology. [facility] Medical History (Updated 11/29/22 @ 08:29 by Bonnie Ahn MD) Deep vein thrombosis (07/28/22) Class 1 obesity with body mass index (BMI) of 34.0 to 34.9 in adult Thrombocytopenia Physical exam Hypothyroidism Pancytopenia Osteoarthritis of left knee Hypovitaminosis D Toenail deformity Obesity Left shoulder pain Constipation by delayed colonic transit Hypothyroidism Surgical History H/O gastric sleeve Venous insufficiency of left leg History of surgery History of cholecystectomy History of arthroscopy of left knee History of section Family History Father Diabetes CVD (cardiovascular disease) Myocardial infarction Mother CVD (cardiovascular disease) Hypertension Maternal Grandmother No problems noted. Maternal Grandfather Prostate cancer Family/Other Mental health disorder Social History Household Members: Spouse and Children Housing: House Are you a primary acute care assistant to a significant other at home: No Do you presently have visiting nurse or other home services: No Alcohol intake: never Patient Tobacco Use Status: Never used Tobacco e-Cigarette/Vaping Use: Never Used Second Hand Smoke Exposure: No service: No Current occupational status: employed Current occupational exposures/hazards: No Cognitive needs: No Hearing needs: No Vision needs: Yes Questionnaire Thrive Questionnaire Date Thrive assessed: 06/28/22 DUSTY-7 AMB Questionnaire DUSTY-7 Date DUSTY - 7 assessed: 06/28/22 Source: Developed by Drs. Emery Lindquist, Judy Marie, Henry Sethi and colleagues, with an educational michelle from [employer]. Review of Systems Const All systems reviewed & are unremarkable except as noted in HPI and below Eyes Reports no additional complaints, Denies change in vision and Denies other visual disturbances Card Denies chest pain at rest, Denies chest pain with activity, Denies edema, Denies irregular heart rhythm, Denies claudication, Denies dyspnea, Denies dyspnea on exertion, Denies orthopnea, Denies paroxysmal nocturnal dyspnea and Denies slow heart rate Resp Denies cough, Denies dyspnea and Denies dyspnea on exertion GI Denies abdominal pain, Denies change in bowel habits, Denies excessive flatus, Denies nausea and Denies vomiting Denies urinary incontinence, Denies urinary hesitancy and Denies urinary urgency Musc Denies abnormal gait, Denies atrophy, Denies deformity and Denies limited range of motion Skin/Breast Denies bleeding lesions, Denies changing lesions and Denies rash Neuro Denies abnormal gait and Denies lack of coordination Physical exam (Primary Care) Vital Signs: Last Vital Signs BP 108/72 11/29/22 08:14 BMI result Body Mass Index 37.2 Tobacco/Smoking Status: Tobacco use Status Tobacco use date assessed 06/28/22 11/29/22 08:09 Patient Tobacco Use Status Never used Tobacco 11/29/22 08:09 e-Cigarette/Vaping Use Never Used 11/29/22 08:09 Thrive Assessment: Date of Thrive Assessment Date Thrive assessed 06/28/22 11/29/22 08:09 Eyes General: appearance normal, both eyes and all related structures Eyelids: Yes eyelids normal Conjunctivae: conjunctivae normal Neck Neck: Yes normal visual inspection and Yes supple Resp Effort & Inspection: normal respiratory effort Auscultation: clear to auscultation bilaterally Cardio Jugular venous distension: no JVD Rate: regular rate Rhythm: regular rhythm Heart sounds: S1 normal heart sound present and S2 normal heart sound present Extrem General: Yes full ROM Assessment and Plan Assessment & Plan (1) Hypothyroidism: Code(s): E03.9 - Hypothyroidism, unspecified Plan: Continue levothyroxine. (2) Deep vein thrombosis: Onset Date: 07/28/22 Comment: 07/28/2022 - Left leg thrombectomy Code(s): I82.409 - Acute embolism and thrombosis of unspecified deep veins of unspecified lower extremity Plan: Continue Eliquis. Repeat ultrasound of the leg. (3) Osteoarthritis of left knee: Code(s): M17.12 - Unilateral primary osteoarthritis, left knee Plan: Continue tramadol as needed. (4) Chronic sinusitis: Code(s): J32.9 - Chronic sinusitis, unspecified Plan: Continue intranasal spray. Follow by ENT. Orders: Orders Thyroid Stimulating Hormone Today E03.9 - Hypothyroidism, unspecified US thyroid Today E04.9 - Nontoxic goiter, unspecified US venous duplex LE LT Today I82.409 - Acute embolism and thrombosis of unspecified deep veins of unspecified lower extremity Coding Level of Care Code Est Pt Level 4 (60308) Diagnoses Hypothyroidism E03.9 Deep vein thrombosis I82.409 Osteoarthritis of left knee M17.12 Chronic sinusitis J32.9 Time Spent (min) 23
[2022-11-29 08:14] VITALS: BP 108/72; BMI 37.2
== END 2022-11-29 08:36 | disposition home or self-care (01) ==
PROVIDERS: PCP Internal Medicine; Visit Provider Internal Medicine
DX: E03.9 Hypothyroidism, unspecified (principal); I82.409 Acute embolism and thrombosis of unspecified deep veins of unspecified lower extremity; M17.12 Unilateral primary osteoarthritis, left knee; J32.9 Chronic sinusitis, unspecified
CPT/HCPCS: 99214

== ENCOUNTER 2022-12-08 11:58 | Outpatient (REF) | payer BC, SELFPAY | END 2022-12-08 11:59 | disposition home or self-care (01) | LOC: HO.US 11:58 | PROVIDERS: PCP Internal Medicine; Visit Provider Internal Medicine | DX: E04.9 Nontoxic goiter, unspecified (principal) | CPT/HCPCS: 76536 ==

== ENCOUNTER 2023-01-06 10:48 | Outpatient (REF) | payer BC, SELFPAY ==
--- NOTE | ~2023-01-06 | US_ITS ---
EXAMINATION: US VENOUS ULTRASOUND WITH DOPPLER LOWER EXTREMITY, LEFT CLINICAL INFORMATION: History of DVT with prior study on 07/27/2022. Patient underwent thrombectomy on 07/28/2022. He is now on anticoagulation. COMPARISON: Left leg DVT study 07/27/2022 TECHNIQUE: Ultrasound of the deep veins is performed from the hip to the calf with compression sonography and color and pulse Doppler assessment. Spectral analysis with color-flow imaging is performed. FINDINGS: At the time of the patient's prior study thrombus was present in the peroneal veins, popliteal vein with extension up the femoral vein into its midportion. On today's study, chronic thrombus appears to be present in the same areas in the peroneal vein, popliteal vein and distal femoral vein. Collateral draining veins are seen. The proximal femoral vein, profunda femoris vein and left common femoral vein appeared normal without thrombus as did the posterior tibial veins. US/US venous duplex LE IMPRESSION: Chronic thrombus is present in the left lower extremity as described above.
== END 2023-01-06 10:49 | disposition home or self-care (01) ==
LOC: HO.US 10:48
PROVIDERS: PCP Internal Medicine; Visit Provider Internal Medicine
DX: Z86.718 Personal history of other venous thrombosis and embolism (principal)
CPT/HCPCS: 93971

== ENCOUNTER 2023-03-10 07:52 | Outpatient (REF) | payer BC, SELFPAY | END 2023-03-10 07:53 | disposition home or self-care (01) | LOC: HO.MAMMO 07:52 | PROVIDERS: PCP Internal Medicine; Visit Provider Internal Medicine | DX: Z12.31 Encounter for screening mammogram for malignant neoplasm of breast (principal) | CPT/HCPCS: 77063; 77067 ==

== ENCOUNTER → 2023-03-10 08:00 | Outpatient (BNV) | payer BC, SELFPAY | PROVIDERS: PCP Internal Medicine; Visit Provider Radiology Diagnostic Radiology | DX: Z12.31 Encounter for screening mammogram for malignant neoplasm of breast (principal) | CPT/HCPCS: 77063; 77067 ==

== ENCOUNTER 2023-04-25 10:16 | Outpatient (AMB) | payer BC, SELFPAY ==
[2023-04-25 10:41] VITALS: BP 114/72; BMI 35.4
--- NOTE | 2023-04-25 10:41 | MHC.PC.OV ---
Vital Signs 04/25/23 10:41 Height 5 ft 4 in Weight 206 lb BMI 35.4 BP 114/72 Blood Pressure Location Lt brachial Position Sitting Intake Visit Reasons: Annual Exam Intake Note: Patient here for a physical exam Institute Scientist Required: No Accompanied by: Self / Same As Patient Allergies lactose Allergy (Intermediate, Verified 04/25/23 11:00) diarrhea oxycodone Adverse Reaction (Mild, Verified 04/25/23 11:00) Vomiting, stomach pain Medication List - Last Reconciled 04/25/23 by Bonnie Ahn MD apixaban (Eliquis) 5 mg PO BID azelastine 1 spray intranasal BID bupropion HCl 150 mg PO QAM cyclobenzaprine 10 mg PO TID PRN 30 days epinephrine (EpiPen) 0.3 mg IM Q4H PRN levothyroxine 25 mcg PO QAM 90 days multivitamin 1 tab PO DAILY naltrexone 50 mg PO DAILY tramadol 50 mg PO BID PRN Tobacco use date assessed: 04/25/23 Dental Screening Dental Screen Date: 04/25/23 Did you have a dental visit in the last 12 months?: Yes Did you have a dental problem in the last 6 months where you did not have access to dental care?: No Was dental information given to patient?: Patient has dentist HPI HPI Comments History of Present Illness Details This is a 53-year-old female with chronic left leg DVT that comes for her physical exam. On Eliquis for DVT which started as acute July 2022 and now is follow by Hematology-Oncology. Last mammogram was March 2023. Last Pap smear was 2020. Unable to do colonoscopy because of being on Eliquis. No chest pain or shortness of breath. [facility] Medical History (Updated 04/25/23 @ 12:11 by Bonnie Ahn MD) Deep vein thrombosis (07/28/22) Class 1 obesity with body mass index (BMI) of 34.0 to 34.9 in adult Thrombocytopenia Physical exam Hypothyroidism Pancytopenia Osteoarthritis of left knee Hypovitaminosis D Toenail deformity Obesity Left shoulder pain Constipation by delayed colonic transit Hypothyroidism Surgical History H/O gastric sleeve Venous insufficiency of left leg History of surgery History of cholecystectomy History of arthroscopy of left knee History of section Family History Father Diabetes CVD (cardiovascular disease) Myocardial infarction Mother CVD (cardiovascular disease) Hypertension Maternal Grandmother No problems noted. Maternal Grandfather Prostate cancer Family/Other Mental health disorder Social History Household Members: Spouse and Children Housing: House Are you a primary hearing care professional to a significant other at home: No Do you presently have visiting nurse or other home services: No Alcohol intake: never Comment: S3 Patient Tobacco Use Status: Never used Tobacco e-Cigarette/Vaping Use: Never Used Second Hand Smoke Exposure: No service: No Current occupational status: employed Current occupational exposures/hazards: No Cognitive needs: No Hearing needs: No Vision needs: Yes Questionnaire PHQ-9 Over the last 2 weeks, how often have you been bothered by any of the following problems? 1. Little interest or pleasure in doing things: not at all 2. Feeling down, depressed, or hopeless: not at all 3. Trouble falling or staying asleep, or sleeping too much: not at all 4. Feeling tired or having little energy: not at all 5. Poor appetite or overeating: not at all 6. Feeling bad about yourself - or that you are a failure or have let yourself or your family down: not at all 7. Trouble concentrating on things, such as reading the newspaper or watching television: not at all 8. Moving or speaking so slowly that other people could have noticed. Or the opposite - being so fidgety or restless that you have been moving around a lot more than usual: not at all 9. Thoughts that you would be better off or of hurting yourself in some way: not at all Total score: 0 Depression Screening Interpretation: Negative Depression Screening Done: Yes 74076 - PHQ-9 Billing: Yes Source: Developed by Drs. Emery Lindquist, Judy Marie, Henry Sethi and colleagues, with an educational michelle from [employer]. Thrive Questionnaire Date Thrive assessed: 04/25/23 I am a: Patient What is your living situation today?: I have a steady place to live Within the past 12 months, did the food you bought not last and you didn't have the money to get more?: Never true Within the past 12 months, did you worry whether your food would run out before you got money to buy more?: Never true Do you have trouble paying for medicines?: No Do you have trouble getting transportation to medical appointments?: No Do you have trouble paying your heating and electricity bill?: No Do you have trouble taking care of your child, family member or friend?: No Do you have trouble with day-to-day activities such as bathing, preparing meals, shopping, managing finances, etc.?: No Are you currently unemployed and looking for a job?: No Are you interested in more education?: No Please select the resources that you would like help with: None Currently or been in a relationship where the following occur: no concerns reported THRIVE Score: 0 AUDIT C Alcohol Use Questionnaire (AUDIT-C) 1. How often do you have a drink containing alcohol?: Never Total Score: 0 DUSTY-7 AMB Questionnaire DUSTY-7 Date DUSTY - 7 assessed: 04/25/23 Feeling nervous, anxious, or on edge: 0 = Not at all Not being able to stop or control worryin = Not at all Worrying too much about different things: 0 = Not at all Trouble relaxin = Not at all Being so restless that it is hard to sit still: 0 = Not at all Becoming easily annoyed or irritable: 0 = Not at all Feeling afraid as if something awful might happen: 0 = Not at all Total DUSTY-7 score (0-4 normal; 5-9 mild; 10-14 moderate; 15-21 severe): 0 Source: Developed by Drs. Emery Lindquist, Judy Marie, Henry Sethi and colleagues, with an educational michelle from [employer]. DUSTY-7 Assessment Billing DUSTY-7 Assessment Tool: DUSTY-7 Assessment 93588 Review of Systems Const All systems reviewed & are unremarkable except as noted in HPI and below Eyes Reports no additional complaints, Denies change in vision and Denies other visual disturbances Card Denies chest pain at rest, Denies chest pain with activity, Denies edema, Denies irregular heart rhythm, Denies claudication, Denies dyspnea, Denies dyspnea on exertion, Denies orthopnea, Denies paroxysmal nocturnal dyspnea and Denies slow heart rate Resp Denies cough, Denies dyspnea and Denies dyspnea on exertion GI Denies abdominal pain, Denies change in bowel habits, Denies excessive flatus, Denies nausea and Denies vomiting Denies urinary incontinence, Denies urinary hesitancy and Denies urinary urgency Musc Denies abnormal gait, Denies atrophy, Denies deformity and Denies limited range of motion Skin/Breast Denies bleeding lesions, Denies changing lesions and Denies rash Neuro Denies abnormal gait, Denies behavioral changes, Denies confusion and Denies lack of coordination Psych Denies behavioral changes and Denies confusion Physical exam (Primary Care) Vital Signs: Last Vital Signs BP 114/72 04/25/23 10:41 BMI result Body Mass Index 35.4 Tobacco/Smoking Status: Tobacco use Status Tobacco use date assessed 04/25/23 04/25/23 10:49 Patient Tobacco Use Status Never used Tobacco 04/25/23 10:49 e-Cigarette/Vaping Use Never Used 04/25/23 10:49 PHQ-9: PHQ-9 Score PHQ-9: Total score 0 04/25/23 11:05 Depression Screening Interpretation: Negative Thrive Assessment: Date of Thrive Assessment Date Thrive assessed 04/25/23 04/25/23 10:49 Currently or been in a relationship where the following occur: no concerns reported Const General: No confusion Orientation/consciousness: patient oriented x3 and No confusion HENMT Head: Yes normal to inspection, Yes normocephalic and Yes atraumatic Ears: external ears normal Eyes General: appearance normal, both eyes and all related structures Eyelids: Yes eyelids normal Conjunctivae: conjunctivae normal Neck Neck: Yes normal visual inspection and Yes supple Resp Effort & Inspection: normal respiratory effort Auscultation: clear to auscultation bilaterally Cardio Jugular venous distension: no JVD Rate: regular rate Rhythm: regular rhythm Heart sounds: S1 normal heart sound present and S2 normal heart sound present GI Inspection: Yes normal to inspection Palpation (GI): Soft to palpation and nontender Auscultation: normal bowel sounds Skin General skin exam: no rashes or lesions noted Neuro General: patient oriented x3, no focal motor deficits and No confusion Extrem General: Yes full ROM Psych Appearance: grossly normal Assessment and Plan Assessment & Plan (1) Physical exam: Code(s): Z00.00 - Encounter for general adult medical examination without abnormal findings Plan: Repeat in a year. (2) Deep vein thrombosis: Onset Date: 07/28/22 Comment: 07/28/2022 - Left leg thrombectomy Code(s): I82.409 - Acute embolism and thrombosis of unspecified deep veins of unspecified lower extremity Qualifiers: DVT location: lower extremity Affected thrombotic vein of extremity: unspecified lower extremity distal vein Chronicity: chronic Laterality: left Qualified Code(s): I82.5Z2 - Chronic embolism and thrombosis of unspecified deep veins of left distal lower extremity Plan: Continue Eliquis. Follow-up with Hematology-Oncology. Orders: Orders Vitamin D 25-OH Total Today E55.9 - Vitamin D deficiency, unspecified Lipid Panel Today E78.5 - Hyperlipidemia, unspecified Comprehensive Prosper. Panel Fast Today Z00.00 - Encounter for general adult medical examination without abnormal findings Thyroid Stimulating Hormone Today E03.9 - Hypothyroidism, unspecified Medications: Changed From tramadol 50 mg PO BID PRN OSTEOARTHRITIS To tramadol 50 mg PO BID PRN 45 tabs 0RF OSTEOARTHRITIS 30 days Refilled cyclobenzaprine 10 mg PO TID PRN 90 tabs 1RF muscle spasm 30 days R55 - Syncope and collapse Coding Level of Care Code Est Pt Prev Care 40-64y(60794) Diagnoses Physical exam Z00.00 Chronic deep vein thrombosis (DVT) of distal vein of left lower extremity I82.5Z2 DVT location: lower extremity Affected thrombotic vein of extremity: unspecified lower extremity distal vein Chronicity: chronic Laterality: left Additional Codes DUSTY-7 Assessment Billing - DUSTY-7 Assessment Tool: DUSTY-7 Assessment 76379 ([id number]) Time Spent (min) 32
== END 2023-04-25 11:11 | disposition home or self-care (01) ==
PROVIDERS: PCP Internal Medicine; Visit Provider Internal Medicine
DX: Z00.00 Encounter for general adult medical examination without abnormal findings (principal); I82.5Z2 Chronic embolism and thrombosis of unspecified deep veins of left distal lower extremity
CPT/HCPCS: 99396

== ENCOUNTER 2023-05-02 06:31 | Outpatient (REF) | payer BC, SELFPAY ==
[2023-05-02 07:37] LABS: Alanine Aminotransferase 19 U/L (0-31); Albumin Level 3.8 g/dL (3.5-5.0); Alkaline Phosphatase 65 U/L (39-117); Anion Gap 10 (12-20); Aspartate Amino Transferase 17 U/L (5-31); Bilirubin Total 0.4 mg/dL (0.0-1.0); Blood Urea Nitrogen 19 mg/dL (9-16); Calcium 9.2 mg/dL (8.4-10.2); Carbon Dioxide 28 mmol/L (22-29); Chloride 111 mmol/L (96-108); Cholesterol 192 mg/dL (<200); Estimated Glomerular Filt Rate > 60; Glucose Fasting 89 mg/dL (60-99); HDL Cholesterol 51 mg/dL (>40); LDL Cholesterol Calculated 117 mg/dL (<100); Potassium 4.6 mmol/L (3.3-5.1); Sodium 144 mmol/L (135-145); Total Protein 6.7 g/dL (6.5-8.0); Triglycerides 120 mg/dL (<150)
[2023-05-02 07:51] LABS: Thyroid Stimulating Hormone 4.04 uIU/mL (0.32-4.0); Vitamin D 25-OH Total 26.2 ng/mL (>30)
== END 2023-05-02 06:32 | disposition home or self-care (01) ==
LOC: HO.LAB 06:31
PROVIDERS: PCP Internal Medicine; Visit Provider Internal Medicine
DX: Z00.00 Encounter for general adult medical examination without abnormal findings (principal); E03.9 Hypothyroidism, unspecified; E55.9 Vitamin D deficiency, unspecified; E78.5 Hyperlipidemia, unspecified
CPT/HCPCS: 36415; 80053; 80061; 82306; 84443

== ENCOUNTER 2023-08-04 07:54 | Outpatient (AMB) | payer BC, SELFPAY ==
[2023-08-04 08:16] VITALS: BP 118/82; BMI 35.5
--- NOTE | 2023-08-04 08:16 | A.OFFPC_ITS ---
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 Required: No Accompanied by: Self / Same As Patient Allergies lactose Allergy (Intermediate, Verified 08/04/23 08:38) diarrhea oxycodone Adverse Reaction (Mild, Verified 08/04/23 08:38) Vomiting, stomach pain Medication List - Last Reconciled 08/04/23 by Bonnie Ahn MD apixaban (Eliquis) 5 mg PO BID azelastine 1 spray intranasal BID cyclobenzaprine 10 mg PO TID PRN 30 days epinephrine (EpiPen) 0.3 mg IM Q4H PRN levothyroxine 25 mcg PO QAM 90 days multivitamin 1 tab PO DAILY phentermine-topiramate 11.25-69 mg ER (Qsymia) 1 cap PO DAILY Tobacco use date assessed: 04/25/23 Dental Screening Dental Screen Date: 04/25/23 HPI HPI Comments History of Present Illness Details This is a 53-year-old female with hypothyroidism, history of left leg DVT on chronic anticoagulation and obesity that complains of hair loss that started few months ago. She does color her hair and I recommended to stop coloring it. Will be referred to Dermatology. She noticed a foul-smelling urine but urinalysis is negative. TSH will be repeated today. Denies any active bleeding and is compliant with anticoagulation. She has obese with a BMI of 35.5 and is on phentermine-Topamax to lose weight prescribed by Dr. West. I made her aware that phentermine can cause elevated blood pressure, addiction and insomnia. No chest pain or shortness on breath. [facility] Medical History (Updated 08/04/23 @ 10:35 by Bonnie Ahn MD) Deep vein thrombosis (07/28/22) Class 1 obesity with body mass index (BMI) of 34.0 to 34.9 in adult Thrombocytopenia Physical exam Hypothyroidism Pancytopenia Osteoarthritis of left knee Hypovitaminosis D Toenail deformity Obesity Left shoulder pain Constipation by delayed colonic transit Hypothyroidism Surgical History H/O gastric sleeve Venous insufficiency of left leg History of surgery History of cholecystectomy History of arthroscopy of left knee History of section Family History Father Diabetes CVD (cardiovascular disease) Myocardial infarction Mother CVD (cardiovascular disease) Hypertension Maternal Grandmother No problems noted. Maternal Grandfather Prostate cancer Family/Other Mental health disorder Social History Household Members: Spouse and Children Housing: House Are you a primary daycare worker to a significant other at home: No Do you presently have visiting nurse or other home services: No Alcohol intake: never Comment: S3 Patient Tobacco Use Status: Never used Tobacco e-Cigarette/Vaping Use: Never Used Second Hand Smoke Exposure: No service: No Current occupational status: employed Current occupational exposures/hazards: No Cognitive needs: No Hearing needs: No Vision needs: Yes Questionnaire Thrive Questionnaire Date Thrive assessed: 04/25/23 DUSTY-7 AMB Questionnaire DUSTY-7 Date DUSTY - 7 assessed: 04/25/23 Source: Developed by Drs. Emery Lindquist, Judy Marie, Henry Sethi and colleagues, with an educational michelle from [employer]). Review of Systems Const All systems reviewed & are unremarkable except as noted in HPI and below Card Denies chest pain at rest, Denies chest pain with activity, Denies edema, Denies irregular heart rhythm, Denies claudication, Denies dyspnea, Denies dyspnea on exertion, Denies orthopnea, Denies paroxysmal nocturnal dyspnea and Denies slow heart rate Resp Denies cough, Denies dyspnea and Denies dyspnea on exertion GI Denies abdominal pain, Denies change in bowel habits, Denies excessive flatus, Denies nausea and Denies vomiting Physical exam (Primary Care) Vital Signs: Last Vital Signs BP 118/82 08/04/23 08:16 BMI result Body Mass Index 35.5 BMI Assessment/Plan discussion: High BMI High, discussed plan: lifestyle, weight reduction, dietary and physical activity Tobacco/Smoking Status: Tobacco use Status Tobacco use date assessed 04/25/23 08/04/23 08:23 Patient Tobacco Use Status Never used Tobacco 08/04/23 08:23 e-Cigarette/Vaping Use Never Used 08/04/23 08:23 Thrive Assessment: Date of Thrive Assessment Date Thrive assessed 04/25/23 08/04/23 08:23 Resp Effort & Inspection: normal respiratory effort Auscultation: clear to auscultation bilaterally Cardio Jugular venous distension: no JVD Rate: regular rate Rhythm: regular rhythm Heart sounds: S1 normal heart sound present and S2 normal heart sound present Extrem General: Yes full ROM Results AMB Urinalysis, Automated UA Leukoctes 0 Chayo/uL Last Edit by Manuel George [facility] on 08/04/23 08:34 UA Nitrite Negative Last Edit by Manuel George, A on 08/04/23 08:34 UA Urobilinogen 0.2 mg/dL Last Edit by Manuel George, A on 08/04/23 08: 34 UA Protein 0 mg/dL Last Edit by Manuel George, [facility] on 08/04/23 08:34 UA pH 6.0 Last Edit by Manuel George, A on 08/04/23 08:34 UA Blood 0 [place]/uL Last Edit by Manuel George, [facility] on 08/04/23 08:34 UA Specific [place] 1.030 Last Edit by Manuel George, A on 08/04/23 08 :34 UA Ketone Negative Last Edit by Manuel George, [facility] on 08/04/23 08:34 UA Bilirubin 0 mg/dL Last Edit by Manuel George, [facility] on 08/04/23 08:34 UA Glucose 0 mg/dL Last Edit by Manuel George, A on 08/04/23 08:34 Results Reviewed Results Reviewed: Laboratory Last Values Urine pH (Auto) 6.0 08/04/23 08:28 Specific [place] (Auto) 1.030 08/04/23 08:28 Urine Protein (Auto) 0 mg/dL 08/04/23 08:28 Glucose (UA)(Auto) 0 mg/dL 08/04/23 08:28 Urine Ketones (Auto) Negative 08/04/23 08:28 Urine Blood (Auto) 0 [place]/uL 08/04/23 08:28 Urine Nitrite (Auto) Negative 08/04/23 08:28 Urine Bilirubin (Auto) 0 mg/dL 08/04/23 08:28 Urine Urobilinogen (Auto) 0.2 mg/dL 08/04/23 08:28 Leukocyte Esterase (Auto) 0 [place]/uL 08/04/23 08:28 Assessment and Plan Assessment & Plan (1) Hypothyroidism: Code(s): E03.9 - Hypothyroidism, unspecified Qualifiers: Hypothyroidism type: acquired Qualified Code(s): E03.9 - Hypothyroidism, unspecified Plan: Continue levothyroxine. Repeat TSH today. (2) Deep vein thrombosis: Onset Date: 07/28/22 Comment: 07/28/2022 - Left leg thrombectomy Code(s): I82.409 - Acute embolism and thrombosis of unspecified deep veins of unspecified lower extremity Qualifiers: DVT location: lower extremity Affected thrombotic vein of extremity: unspecified lower extremity distal vein Chronicity: chronic Laterality: left Qualified Code(s): I82.5Z2 - Chronic embolism and thrombosis of unspecified deep veins of left distal lower extremity Plan: Continue Eliquis. (3) Hair loss: Code(s): L65.9 - Nonscarring hair loss, unspecified Plan: Referred to dermatology. Advised to not color her hair. (4) Obesity (BMI 35.0-39.9 without comorbidity): Code(s): E66.9 - Obesity, unspecified Plan: Continue phentermine-topiramate. Follow-up with weight management. Orders: Orders Thyroid Stimulating Hormone Today E03.9 - Hypothyroidism, unspecified AMB Urinalysis Automated Today R82.90 - Unspecified abnormal findings in urine Referrals Dermatology Referral L65.9 - Nonscarring hair loss, unspecified Medications: Refilled cyclobenzaprine 10 mg PO TID PRN 90 tabs 1RF muscle spasm 30 days R55 - Syncope and collapse Coding Level of Care Code Est Pt Level 4 (43047) Complex EM visit Add On G2211 Diagnoses Acquired hypothyroidism E03.9 Hypothyroidism type: acquired Chronic deep vein thrombosis (DVT) of distal vein of left lower extremity I82.5Z2 DVT location: lower extremity Affected thrombotic vein of extremity: unspecified lower extremity distal vein Chronicity: chronic Laterality: left Hair loss L65.9 Obesity (BMI 35.0-39.9 without comorbidity) E66.9 Time Spent (min) 23
== END 2023-08-04 08:48 | disposition home or self-care (01) ==
PROVIDERS: PCP Internal Medicine; Visit Provider Internal Medicine
DX: E03.9 Hypothyroidism, unspecified (principal); I82.5Z2 Chronic embolism and thrombosis of unspecified deep veins of left distal lower extremity; E66.9 Obesity, unspecified; Z68.35 Body mass index [BMI] 35.0-35.9, adult; L65.9 Nonscarring hair loss, unspecified; R82.90 Unspecified abnormal findings in urine
CPT/HCPCS: 81003; 99214

== ENCOUNTER 2023-08-04 09:00 | Outpatient (REF) | payer BC, SELFPAY ==
[2023-08-04 10:14] LABS: Thyroid Stimulating Hormone 2.79 uIU/mL (0.32-4.0)
== END 2023-08-04 09:01 | disposition home or self-care (01) ==
LOC: HO.LAB 09:00
PROVIDERS: PCP Internal Medicine; Visit Provider Internal Medicine
DX: E03.9 Hypothyroidism, unspecified (principal)
CPT/HCPCS: 36415; 84443

== ENCOUNTER 2023-12-29 07:55 | Outpatient (AMB) | payer BC, SELFPAY ==
[2023-12-29 08:00] VITALS: BP 110/78; BMI 34.5
--- NOTE | 2023-12-29 08:00 | MHC.PC.OV ---
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 Required: No Accompanied by: Self / Same As Patient Allergies lactose Allergy (Intermediate, Verified 12/29/23 08:22) diarrhea oxycodone Adverse Reaction (Mild, Verified 12/29/23 08:22) Vomiting, stomach pain Medication List - Last Reconciled 12/29/23 by Bonnie Ahn MD apixaban (Eliquis) 2.5 mg PO BID bupropion HCl XL 150 mg PO DAILY cyclobenzaprine 10 mg PO TID PRN 30 days epinephrine (EpiPen) 0.3 mg IM Q4H PRN ferrous sulfate (Feosol) 325 mg PO DAILY levothyroxine 25 mcg PO QAM 90 days multivitamin 1 tab PO DAILY topiramate 100 mg PO DAILY tramadol 50 mg PO DAILY PRN 30 days Tobacco use date assessed: 04/25/23 Dental Screening Dental Screen Date: 12/29/23 Did you have a dental visit in the last 12 months?: Yes Did you have a dental problem in the last 6 months where you did not have access to dental care?: No Was dental information given to patient?: Patient has dentist HPI HPI Comments History of Present Illness Details This is a 53-year-old female with hypothyroidism, history of DVT on chronic anticoagulation and low vitamin-D that comes today complaining of a rash in the right hip that is maculopapular pruritic. This happens on and off. TSH will be ordered. On Eliquis for her history of DVT last year and denies any active bleeding. On vitamin-D supplements for her low vitamin-D. No chest pain or shortness on breath. [facility] Medical History (Updated 12/29/23 @ 09:14 by Bonnie Ahn MD) Deep vein thrombosis (07/28/22) Class 1 obesity with body mass index (BMI) of 34.0 to 34.9 in adult Thrombocytopenia Physical exam Hypothyroidism Pancytopenia Osteoarthritis of left knee Hypovitaminosis D Toenail deformity Obesity Left shoulder pain Constipation by delayed colonic transit Hypothyroidism Surgical History H/O gastric sleeve Venous insufficiency of left leg History of surgery History of cholecystectomy History of arthroscopy of left knee History of section Family History Father Diabetes CVD (cardiovascular disease) Myocardial infarction Mother CVD (cardiovascular disease) Hypertension Maternal Grandmother No problems noted. Maternal Grandfather Prostate cancer Family/Other Mental health disorder Social History Household Members: Spouse and Children Housing: House Are you a primary managed care provider to a significant other at home: No Do you presently have visiting nurse or other home services: No Alcohol intake: never Comment: S3 Patient Tobacco Use Status: Never used Tobacco e-Cigarette/Vaping Use: Never Used Second Hand Smoke Exposure: No service: No Current occupational status: employed Current occupational exposures/hazards: No Cognitive needs: No Hearing needs: No Vision needs: Yes Questionnaire Thrive Questionnaire Date Thrive assessed: 04/25/23 DUSTY-7 AMB Questionnaire DUSTY-7 Date DUSTY - 7 assessed: 04/25/23 Source: Developed by Drs. Emery Lindquist, Judy Marie, Henry Sethi and colleagues, with an educational michelle from [employer]. Review of Systems Const All systems reviewed & are unremarkable except as noted in HPI and below Card Denies chest pain at rest, Denies chest pain with activity, Denies edema, Denies irregular heart rhythm, Denies claudication, Denies dyspnea, Denies dyspnea on exertion, Denies orthopnea, Denies paroxysmal nocturnal dyspnea and Denies slow heart rate Resp Denies cough, Denies dyspnea and Denies dyspnea on exertion GI Denies abdominal pain, Denies change in bowel habits, Denies excessive flatus, Denies nausea and Denies vomiting Denies urinary incontinence, Denies urinary hesitancy and Denies urinary urgency Musc Denies atrophy, Denies deformity and Denies limited range of motion Skin/Breast Denies bleeding lesions, Denies changing lesions and Denies rash Physical exam (Primary Care) Vital Signs: Last Vital Signs BP 110/78 12/29/23 08:00 BMI result Body Mass Index 34.5 BMI Assessment/Plan discussion: High BMI High, discussed plan: lifestyle, weight reduction, dietary and physical activity Tobacco/Smoking Status: Tobacco use Status Tobacco use date assessed 04/25/23 12/29/23 08:02 Patient Tobacco Use Status Never used Tobacco 12/29/23 08:02 e-Cigarette/Vaping Use Never Used 12/29/23 08:02 Thrive Assessment: Date of Thrive Assessment Date Thrive assessed 04/25/23 12/29/23 08:02 Resp Effort & Inspection: normal respiratory effort Auscultation: clear to auscultation bilaterally Cardio Jugular venous distension: no JVD Rate: regular rate Rhythm: regular rhythm Heart sounds: S1 normal heart sound present and S2 normal heart sound present Extrem General: Yes full ROM Office Procedures Flu Questionnaire Does the patient have a severe egg allergy?: No Immunizations Fluarix Triv [id number] (PF) 45 mcg (15 mcg x 3)/0.5 mL IM syringe Performing Provider: Bonnie Ahn MD [facility] Documented (not given) by: SCOTTY Tinoco on 12/29/23 08:13 Reason Not Given: Patient Refused Coding Level of Care Code Est Pt Level 4 (47499) Complex EM visit Add On G2211 Diagnoses Chronic deep vein thrombosis (DVT) of distal vein of left lower extremity I82.5Z2 DVT location: lower extremity Affected thrombotic vein of extremity: unspecified lower extremity distal vein Chronicity: chronic Laterality: left Acquired hypothyroidism E03.9 Hypothyroidism type: acquired Rash R21 Hypovitaminosis D E55.9 Time Spent (min) 21 Assessment & Plan Assessment & Plan (1) Deep vein thrombosis: Onset Date: 07/28/22 Comment: 07/28/2022 - Left leg thrombectomy Code(s): I82.409 - Acute embolism and thrombosis of unspecified deep veins of unspecified lower extremity Category: Medical Qualifiers: DVT location: lower extremity Affected thrombotic vein of extremity: unspecified lower extremity distal vein Chronicity: chronic Laterality: left Qualified Code(s): I82.5Z2 - Chronic embolism and thrombosis of unspecified deep veins of left distal lower extremity Plan: Continue Eliquis. (2) Hypothyroidism: Code(s): E03.9 - Hypothyroidism, unspecified Category: Medical Qualifiers: Hypothyroidism type: acquired Qualified Code(s): E03.9 - Hypothyroidism, unspecified Plan: Continue levothyroxine. Monitor TSH. (3) Rash: Code(s): R21 - Rash and other nonspecific skin eruption Category: Medical Plan: Start cream. (4) Hypovitaminosis D: Code(s): E55.9 - Vitamin D deficiency, unspecified Category: Medical Plan: Continue vitamin-D supplements. Orders: Orders Influenza [id number] Immunization Today Z23 - Encounter for immunization Thyroid Stimulating Hormone Today E03.9 - Hypothyroidism, unspecified Complete Blood Count Auto Diff Today D64.9 - Anemia, unspecified IRON PROFILE Today D64.9 - Anemia, unspecified Medications: New betamethasone dipropionate 0.05% 1 appl topical BID PRN 15 grams 0RF skin irritation 2 weeks
== END 2023-12-29 08:30 | disposition home or self-care (01) ==
PROVIDERS: PCP Internal Medicine; Visit Provider Internal Medicine
DX: I82.5Z2 Chronic embolism and thrombosis of unspecified deep veins of left distal lower extremity (principal); E03.9 Hypothyroidism, unspecified; R21 Rash and other nonspecific skin eruption; E55.9 Vitamin D deficiency, unspecified; Z23 Encounter for immunization

== ENCOUNTER 2023-12-29 07:55 | Outpatient (REF) | payer BC, SELFPAY ==
[2023-12-29 08:55] LABS: MANUAL DIFF FLAG NO
[2023-12-29 09:25] LABS: Eosinophils Absolute Auto 0.1 X10*3/uL (0.0-0.4); Eosinophils Percent Auto 2.6 % (0-4); Hematocrit 42.2 % (37.0-47.0); Hemoglobin 14.2 g/dl (12.0-16.0); Imm Gran Abs Auto 0.01 X10*3/uL (0.00-0.03); Imm Gran Pct Auto 0.2 % (0.0-0.4); Lymphocytes Percent Auto 23.3 % (20-40); Mean Corpuscular HGB Conc 33.6 g/dl (31.0-35.0); Mean Corpuscular Hemoglobin 30.5 pg (27.0-33.0); Mean Corpuscular Volume 90.8 fL (80.0-98.0); Mean Platelet Volume 12.4 fL (9.4-12.3); Monocytes Absolute Auto 0.3 X10*3/uL (0.1-1.2); Monocytes Percent Auto 7.2 % (2-11); Neutrophils Absolute Auto 2.7 x10*3/uL (2.0-8.3); Neutrophils Percent Auto 65.7 % (45-73); Platelet Count 160 X10*3/uL (160-400); Red Blood Count 4.65 X10*6/uL (4.20-5.50); Red Cell Distribution Width 12.8 % (11.0-16.0); White Blood Count 4.2 X10*3/uL (4.8-10.8)
[2023-12-29 10:05] LABS: Iron 141 mcg/dL (30-160); Percent Iron Saturation 48 % (15-50); Total Iron Binding Capacity 295 mcg/dL (228-428); Unsaturated Iron Binding 154 ug/dL
[2023-12-29 10:22] LABS: Thyroid Stimulating Hormone 2.74 uIU/mL (0.32-4.0)
== END 2023-12-29 07:56 | disposition home or self-care (01) ==
LOC: HO.LAB 07:55
PROVIDERS: PCP Internal Medicine; Visit Provider Internal Medicine
DX: I82.5Z2 Chronic embolism and thrombosis of unspecified deep veins of left distal lower extremity (principal); E03.9 Hypothyroidism, unspecified; E55.9 Vitamin D deficiency, unspecified; Z79.01 Long term (current) use of anticoagulants; Z79.899 Other long term (current) drug therapy; Z28.21 Immunization not carried out because of patient refusal; D64.9 Anemia, unspecified
CPT/HCPCS: 36415; 83540; 84443; 85025; 90471

== ENCOUNTER 2024-01-12 06:51 | Day surgery (SDC) | payer BC, SELFPAY ==
[2024-01-10 11:56] VITALS: BMI 34.8
--- NOTE | 2024-01-11 08:20 | HO.ANESPROP2 ---
Documented by User: Yenifer Cool NP 01/11/24 08:20 HPI - Anesthesia Eval Consult details Narrative: 53yo F for ?Upper Endoscopy and Colonoscopy Eliquis for DVT PMFSH Active Problems Active Problems: All Active Problems Rash (Acute) Obesity (BMI 35.0-39.9 without comorbidity) (Acute) Hair loss (Acute) Goiter (Acute) Hospital discharge follow-up (Acute) Left leg pain (Acute) Obesity (BMI 35.0-39.9 without comorbidity) (Acute) Skin lesion (Acute) Chronic sinusitis (Acute) Left knee pain (Acute) Physical exam (Acute) Syncope (Acute) RLQ abdominal pain (Acute) Hypothyroidism (Acute) Deep vein thrombosis (Acute 07/28/22) Class 1 obesity with body mass index (BMI) of 34.0 to 34.9 in adult (Acute) Physical exam (Acute) Osteoarthritis of left knee (Acute) Hypovitaminosis D (Acute) Toenail deformity (Acute) Obesity (Acute) Left shoulder pain (Acute) Constipation by delayed colonic transit (Acute) Past Medical History Medical History Deep vein thrombosis (07/28/22) Class 1 obesity with body mass index (BMI) of 34.0 to 34.9 in adult Thrombocytopenia Physical exam Pancytopenia Osteoarthritis of left knee Hypovitaminosis D Toenail deformity Obesity Left shoulder pain Constipation by delayed colonic transit Hypothyroidism Family History Family History Father Diabetes CVD (cardiovascular disease) Myocardial infarction Mother CVD (cardiovascular disease) Hypertension Maternal Grandmother No problems noted. Maternal Grandfather Prostate cancer Family/Other Mental health disorder Surgical History Surgical History H/O gastric sleeve Venous insufficiency of left leg History of surgery History of cholecystectomy History of arthroscopy of left knee History of section Social History Social History Household Members: Spouse and Children Housing: House Are you a primary career and technology education teacher to a significant other at home: No Do you presently have visiting nurse or other home services: No Alcohol intake: never Comment: S3 Patient Tobacco Use Status: Never used Tobacco e-Cigarette/Vaping Use: Never Used Second Hand Smoke Exposure: No Have you been hit, kicked, punched, or otherwise hurt by someone within the past year? If so, by whom?: No Are you DNR?: No Advance Directives: No Advance Directives Information Provided: Yes service: No Current occupational status: employed Current occupational exposures/hazards: No Cognitive needs: No Hearing needs: No Vision needs: Yes Meds Allergies Allergy/AdvReac Type Severity Reaction Status Date / Time lactose Allergy Intermediate diarrhea Verified 12/29/23 08:22 oxycodone AdvReac Mild Vomiting, Verified 12/29/23 08:22 stomach pain Home Medications ?Medication ?Instructions ?Recorded ?Confirmed ?Last Taken ?Type multivitamin 1 tab PO DAILY 09/09/20 12/29/23 Unknown History epinephrine 0.3 mg/0.3 mL 0.3 mg IM Q4H PRN Allergic Reaction 10/27/22 12/29/23 Unknown History injection, auto-injector (EpiPen) bupropion HCl 150 mg 24 hr tablet, 150 mg PO DAILY 12/29/23 12/29/23 Unknown History extended release topiramate 100 mg tablet 100 mg PO DAILY 12/29/23 12/29/23 Unknown History Exam Height,Weight and Vital Signs: Height 5 ft 4 in Weight 92.079 kg Assessment and Plan Assessment Anesthesia Assessment: Chart Reviewed Documented by User: Viola Johnson MD 01/12/24 08:55 [facility] Past Medical History Medical History Deep vein thrombosis (07/28/22) Class 1 obesity with body mass index (BMI) of 34.0 to 34.9 in adult Thrombocytopenia Physical exam Pancytopenia Osteoarthritis of left knee Hypovitaminosis D Toenail deformity Obesity Left shoulder pain Constipation by delayed colonic transit Hypothyroidism Family History Family History Father Diabetes CVD (cardiovascular disease) Myocardial infarction Mother CVD (cardiovascular disease) Hypertension Maternal Grandmother No problems noted. Maternal Grandfather Prostate cancer Family/Other Mental health disorder Family history of problems with anesthesia: No Surgical History Surgical History H/O gastric sleeve Venous insufficiency of left leg History of surgery History of cholecystectomy History of arthroscopy of left knee History of section History of Problems with Anesthesia: No Social History Social History Household Members: Spouse and Children Housing: House Are you a primary career and technology education teacher to a significant other at home: No Do you presently have visiting nurse or other home services: No Alcohol intake: never Comment: S3 Patient Tobacco Use Status: Never used Tobacco e-Cigarette/Vaping Use: Never Used Second Hand Smoke Exposure: No Have you been hit, kicked, punched, or otherwise hurt by someone within the past year? If so, by whom?: No Are you DNR?: No Advance Directives: No Advance Directives Information Provided: Yes service: No Current occupational status: employed Current occupational exposures/hazards: No Cognitive needs: No Hearing needs: No Vision needs: Yes Meds Allergies Allergy/AdvReac Type Severity Reaction Status Date / Time lactose Allergy Intermediate diarrhea Verified 12/29/23 08:22 oxycodone AdvReac Mild Vomiting, Verified 12/29/23 08:22 stomach pain Home Medications ?Medication ?Instructions ?Recorded ?Confirmed ?Last Taken ?Type multivitamin 1 tab PO DAILY 09/09/20 12/29/23 Unknown History epinephrine 0.3 mg/0.3 mL 0.3 mg IM Q4H PRN Allergic Reaction 10/27/22 12/29/23 Unknown History injection, auto-injector (EpiPen) bupropion HCl 150 mg 24 hr tablet, 150 mg PO DAILY 12/29/23 12/29/23 Unknown History extended release topiramate 100 mg tablet 100 mg PO DAILY 12/29/23 12/29/23 Unknown History Exam Airway Mallampati Class: II TM Dist: >3cm Neck ROM: Full Heart: rrr Lungs: cta Assessment and Plan Assessment Anesthesia Assessment: Anesthesia Plan Discussed Final Anesthetic Review Family History of Problems with Anesthesia: No History of Problems with Anesthesia: No NPO: Yes ASA Class: III Final Preanesthetic Review: No Changes in Pt Med Stat, Meds/Allgs Chart Reviewed, Consent Obtained/Reviewed and Anes Risks/Benef Reviewed Patient Risk: Intermediate Procedure Risk: Low Anesthetic Plan Anesthetic Plan: MAC: Disposition: Standard PACU
[2024-01-12 07:07] VITALS: BP 146/87; PULSE 71; RESP 18; TEMP 37.1; O2SAT 98; BMI 35.4
[2024-01-12] MEDS: Lactated Ringers 1,000 ML 100 ML IVCONT (07:31)
--- NOTE | 2024-01-12 07:55 | MHC.SHP ---
Pre-Procedural Eval Section A - 24 Hr Update-Section A only Date of Service: 01/12/24 Section B - Complete if H&P > 30 days Chief Complaint: screening,dysphagia Details of Present Illness: Class 1 obesity with body mass index (BMI) of 34.0 to 34.9 in adult Constipation by delayed colonic transit Hypothyroidism Hypothyroidism Hypovitaminosis D Left shoulder pain Obesity Osteoarthritis of left knee Pancytopenia Physical exam Thrombocytopenia Toenail deformity Surgical History H/O gastric sleeve History of arthroscopy of left knee History of section History of cholecystectomy History of surgery Venous insufficiency of left leg Allergies: Allergies Allergy/AdvReac Type Severity Reaction Status Date / Time lactose Allergy Intermediate diarrhea Verified 12/29/23 08:22 oxycodone AdvReac Mild Vomiting, Verified 12/29/23 08:22 stomach pain Review of Systems Review of Systems Comment: Ten point ROS negative Exam Exam Comment: Gen appear: No acute distress HEENT: no icterus Chest: No overt resp distress Abd: soft, nontender, nondistended Psych: Stable affect, answering questions appropriately Neuro: A/Ox3 noted to move all extremities spontaneously Ext: no peripheral edema Plan Diagnosis/Plan: Unchanged I have reviewed the history and physical and performed a pertinent physical examination on my patient. No changes have occurred unless specified. Time Spent With Patient Time: Total time managing care of this patient today ____ minutes.
[2024-01-12 08:45] VITALS: BP 109/70; PULSE 88; RESP 16; TEMP 36.1; O2SAT 99
--- NOTE | 2024-01-12 08:49 | P.OPN-COLO_ITS ---
Colonoscopy Operative Note Operative Note Date of Service: 01/12/24 Narrative: Procedure: Upper endoscopy and colonoscopy Indication: Dysphagia, screening Endoscopist: Lulu Cota MD Anesthesia Provider: Anesthesia type: MAC Instrument: [id number] and PCF-[id number] EGD Procedure:?? The procedure, indications, preparation and potential complications were reviewed with the patient, who indicated understanding and gave written informed consent to proceed. The endoscope was introduced through the mouth, and advanced to the 2nd part of the duodenum. The mucosa was carefully examined on slow withdrawal of the endoscope. The patient tolerated the procedure well. There were no immediate complications.? EGD Findings:? * Esophagus:? Ulceration, erythema and edema at the GE junction up to 30 cm. The Z-line was at 31 cm. There was a medium hiatal hernia with the diaphragmatic pinch at 35 cm. Prominent spinous processes indentation in the proximal esophagus. Cold forceps biopsies were taken from middle and lower esophagus to rule out eosinophilic esophagitis. * Stomach:? Erythema and erosions in the cardia and herniated stomach. Scant heme and erosions were also noted in the antrum. Retroflexion was performed in the cardia. Random cold forceps biopsies were taken from the stomach. * Duodenum:? Normal duodenal mucosa. Cold forceps biopsies were taken from the duodenal bulb and 2nd portion of the duodenum to rule out celiac sprue. Colonoscopy Procedure:? The patient was then turned for the colonoscopy. A digital rectal exam was performed which was normal.? A distal attachment cap was affixed to the tip of the scope and the colonoscope was then inserted through the anus and advanced through the colon and advanced to the cecum at 75 cm and terminal ileum.? Appendiceal orifice and ileocecal valve were identified. Mucosa was carefully examined under high definition white light as the instrument was slowly withdrawn in a retrograde panoramic fashion. Retroflexion was performed in rectum. The procedure was not difficult. The quality of the prep was BBPS: 2+3+3 = adequate Withdrawal time 13 minutes Limitations: No limitations Findings: Mucosa: Normal colon and terminal ileum mucosa. Protruding lesions: * Small internal hemorrhoids without stigmata of recent bleeding. Excavated lesions: * Mild scattered diverticulosis of the left colon. Impression: 1. Grade C esophagitis (biopsy) 2. Hiatal hernia 3. Edgar erosions 4. Gastritis (biopsy) 5. Normal duodenum (biopsy) 6. Normal colon and terminal ileum mucosa 7. Internal hemorrhoids 8. Diverticulosis Recommendations:?? * Follow-up path results * Avoid NSAIDs * H Pylori treatment if biopsies + * Repeat EGD to assess for healing of esophagitis in a few months. * Start omeprazole 20 mg b.i.d. x 8 weeks and then once daily * Pt reports prev hx of achalasia but that was not seen on EGD today. Consider barium swallow * Repeat colonoscopy for CRC screening in 10 years.
[2024-01-12 09:03] VITALS: BP 126/89; PULSE 82; RESP 16; TEMP 36.3; O2SAT 99
== END 2024-01-12 09:21 | disposition home or self-care (01) ==
PROVIDERS: PCP Internal Medicine; Visit Provider Internal Medicine
PROC: (CPT 43239; principal; 2024-01-12 08:30)
DX: K29.70 Gastritis, unspecified, without bleeding (principal); K22.10 Ulcer of esophagus without bleeding; K44.9 Diaphragmatic hernia without obstruction or gangrene; R13.14 Dysphagia, pharyngoesophageal phase; Z12.11 Encounter for screening for malignant neoplasm of colon; K57.30 Diverticulosis of large intestine without perforation or abscess without bleeding; K64.8 Other hemorrhoids; E03.9 Hypothyroidism, unspecified; E66.9 Obesity, unspecified; Z68.34 Body mass index [BMI] 34.0-34.9, adult; Z86.718 Personal history of other venous thrombosis and embolism; Z90.49 Acquired absence of other specified parts of digestive tract; Z79.899 Other long term (current) drug therapy; Z79.01 Long term (current) use of anticoagulants
CPT/HCPCS: 43239; 45378; 88305; 88313; 88342; J1100; J1596; J2003; J2704

== ENCOUNTER → 2024-01-12 06:51 | Outpatient (BNV) | payer BC, SELFPAY | PROVIDERS: PCP Internal Medicine; Visit Provider Internal Medicine | DX: Z12.11 Encounter for screening for malignant neoplasm of colon (principal); K57.30 Diverticulosis of large intestine without perforation or abscess without bleeding; K64.8 Other hemorrhoids; R13.10 Dysphagia, unspecified; K20.90 Esophagitis, unspecified without bleeding; K29.70 Gastritis, unspecified, without bleeding; K25.4 Chronic or unspecified gastric ulcer with hemorrhage | CPT/HCPCS: 43239; 45378 ==

== ENCOUNTER 2024-01-23 08:06 | Outpatient (AMB) | payer BC, SELFPAY ==
[2024-01-23 08:18] VITALS: BP 106/54; PULSE 66; O2SAT 100; BMI 35.1
--- NOTE | 2024-01-23 08:18 | A.OFFVIS_ITS ---
Vital Signs 01/23/24 08:18 Height 5 ft 4 in Weight 204 lb 9.423 oz BMI 35.1 BP 106/54 L Blood Pressure Location Rt brachial Position Sitting Pulse 66 Pulse Source Pulse Oximeter Pulse Oximetry (%) 100 Oxygen Delivery Method Room Air Intake Visit Reasons: S/P [place]; Dr. Cota Intake Note: Relevant Flags or Indicators ? Requires Gun Fertilizer? Lefty Bass presents in office today for a scheduled s/p FUV. CC; No recent labs, diagnostics. Pt did recently start Omeprazole [address] Cota without any difficulties. Relevant GI Sx as reported per pt? None ? Hx of any recent surgeries? s/p double with Dr. Cota Gun Fertilizer Required: No Allergies lactose Allergy (Intermediate, Verified 01/23/24 08:19) diarrhea oxycodone Adverse Reaction (Mild, Verified 01/23/24 08:19) Vomiting, stomach pain HPI HPI S/P [place]; Dr. Cota: Details: LAST VISIT: Screen for colon cancer Patient denies any cardiac or respiratory symptoms.? Reports to have occasional constipation. Will start her on Colace daily. Patient also reports to have occasional feelings like she can swallow solid food. No trouble swallowing fluids. Will send her for upper endoscopy. Denies any issues with anesthesia in the past.? Denies any history of sleep apnea.? No history infectious diseases in the past or present.? Not on any anticoagulation therapy.? No family or personal history of colon cancer or polyps.? Patient denies melena, hematochezia, unintentional weight loss or ribbon like stools.? Discussed at length the pre- procedure,? prep, diet & medications as well as what to expect prior, during and after the procedure.?? Stressed the importance of good bowel prep. ?Recommended the use of Vaseline or Calmoseptine OTC & baby wipes with bowel movements to promote comfort.? ?Patient verbalizes understanding and agrees to plan of care.? She was given the opportunity to ask questions and all questions answered.? We will see her after the procedure.? Dysphagia Occasional trouble swallowing solids. No trouble swallowing liquids. Will send her for upper endoscopy to rule out Schatzki ring, esophagitis, achalasia, Quintana's. I will see her after the procedure. Patient is agreeable to this plan and verbalizes understanding of instructions. She was given the opportunity to ask questions all questions answered. ? Thank you for allowing me to participate in her care Plan Medications New docusate sodium 100 mg PO BEDTIME 90 caps 3RF K59.00 polyethylene glycol 3350 (Miralax) As directed by gastroenterology department at [facility] 238 grams PO ONCE 238 grams 0RF Z12.11 bisacodyl (Dulcolax (bisacodyl)) Start taking 2 tablet every night 7 days before the procedure and 1 day before procedure take 2 tablets at noon time followed by MiraLax prep 10 mg (2 x 5 mg) PO BEDTIME 20 tabs 0RF Z12.11 UPPER ENDOSCOPY ANDCOLONOSCOPY EGD Findings:? * Esophagus:? Ulceration, erythema and edema at the GE junction up to 30 cm. The Z-line was at 31 cm. There was a medium hiatal hernia with the diaphragmatic pinch at 35 cm. Prominent spinous processes indentation in the proximal esophagus. Cold forceps biopsies were taken from middle and lower esophagus to rule out eosinophilic esophagitis. * Stomach:? Erythema and erosions in the cardia and herniated stomach. Scant heme and erosions were also noted in the antrum. Retroflexion was performed in the cardia. Random cold forceps biopsies were taken from the stomach. * Duodenum:? Normal duodenal mucosa. Cold forceps biopsies were taken from the duodenal bulb and 2nd portion of the duodenum to rule out celiac sprue. Colonoscopy Procedure:? The patient was then turned for the colonoscopy. A digital rectal exam was performed which was normal.? A distal attachment cap was affixed to the tip of the scope and the colonoscope was then inserted through the anus and advanced through the colon and advanced to the cecum at 75 cm and terminal ileum.? Appendiceal orifice and ileocecal valve were identified. Mucosa was carefully examined under high definition white light as the instrument was slowly withdrawn in a retrograde panoramic fashion. Retroflexion was performed in rectum. The procedure was not difficult. The quality of the prep was BBPS: 2+3+3 = adequate Withdrawal time 13 minutes Limitations: No limitations Findings: Mucosa: Normal colon and terminal ileum mucosa. Protruding lesions: * Small internal hemorrhoids without stigmata of recent bleeding.Excavated lesions: * Mild scattered diverticulosis of the left colon. Impression: 1. Grade C esophagitis (biopsy) 2. Hiatal hernia 3. Edgar erosions 4. Gastritis (biopsy) 5. Normal duodenum (biopsy) 6. Normal colon and terminal ileum mucosa 7. Internal hemorrhoids 8. Diverticulosis Recommendations:?? * Follow-up path results * Avoid NSAIDs * H Pylori treatment if biopsies + * Repeat EGD to assess for healing of esophagitis in a few months. * Start omeprazole 20 mg b.i.d. x 8 weeks and then once daily * Pt reports prev hx of achalasia but that was not seen on EGD today. Consider barium swallow * Repeat colonoscopy for CRC screening in 10 years. PATHOLOGY Diagnosis A. Duodenum, biopsy: Duodenal mucosa within normal limits. B. Stomach, random, biopsy: Antral-type and oxyntic mucosa with mild chronic inactive inflammation; no Helicobacter organisms seen. C. GE junction, biopsy: - Cardiac-type mucosa with moderate chronic active inflammation; no intestinal metaplasia seen. - Active esophagitis with erosion (few neutrophils and eosinophils); fragment of ulcer bed. D. Esophagus, middle, biopsy: Squamous epithelium within normal limits; no inflammation seen TODAY'S VISIT Patient is here today for follow-up and to discuss upper endoscopy and colonosco py results. Patient denies any ill effects from the prep, anesthesia or procedure itself. Moderate chronic active inflammation seen at the GE junction without intestinal metaplasia. Active esophagitis with erosion with fragment of ulcer seen in lower part of esophagus. Patient was switch to omeprazole twice a day instead of daily. Patient reports that insurance is not covering omeprazole we will switch it to pantoprazole. Patient in ports that when she takes the omeprazole she feels well. Denies any dyspepsia, dysphagia or odynophagia. Colonoscopy showed scattered diverticulosis in left side of her colon, no polyps found. Colonoscopy in 10 years, no family history of CRC. Patient reports that she has been doing well. Denies any abdominal pain or discomfort. Denies any melena, hematochezia. Reports that she is moving her bowels without any issues. [facility] Medical History Deep vein thrombosis (07/28/22) Class 1 obesity with body mass index (BMI) of 34.0 to 34.9 in adult Thrombocytopenia Physical exam Pancytopenia Osteoarthritis of left knee Hypovitaminosis D Toenail deformity Obesity Left shoulder pain Constipation by delayed colonic transit Hypothyroidism Surgical History H/O gastric sleeve Venous insufficiency of left leg History of surgery History of cholecystectomy History of arthroscopy of left knee History of section Family History Father Diabetes CVD (cardiovascular disease) Myocardial infarction Mother CVD (cardiovascular disease) Hypertension Maternal Grandmother No problems noted. Maternal Grandfather Prostate cancer Family/Other Mental health disorder Social History Household Members: Spouse and Children Housing: House Are you a primary healthcare management to a significant other at home: No Do you presently have visiting nurse or other home services: No Alcohol intake: never Comment: S3 Patient Tobacco Use Status: Never used Tobacco e-Cigarette/Vaping Use: Never Used Second Hand Smoke Exposure: No service: No Current occupational status: employed Current occupational exposures/hazards: No Cognitive needs: No Hearing needs: No Vision needs: Yes Physical Exam Vital Signs: Last Vital Signs Pulse 66 01/23/24 08:18 BP 106/54 L 01/23/24 08:18 Pulse Ox 100 01/23/24 08:18 Oxygen Delivery Method Room Air 01/23/24 08:18 BMI result Body Mass Index 35.1 Const General: healthy appearing and no acute distress Nutritional Appearance: obese Orientation/consciousness: patient oriented x3 Resp Effort & Inspection: normal respiratory effort, able to speak in complete sentences, no tracheal deviation and symmetric chest movement Auscultation: clear to auscultation bilaterally Cardio Rate: regular rate GI Inspection: Yes normal to inspection, No distended and Yes obesity Palpation (GI): Soft to palpation, not firm, nontender and No hepatosplenomegaly present Auscultation: normal bowel sounds General: Yes no CVA tenderness Back/Spine/Pelvis Back: no CVA tenderness Skin General skin exam: elasticity normal, turgor normal and dry skin Neuro General: patient oriented x3 Psych Appearance: grossly normal Mental Status: mental status grossly normal Judgement: Good judgement present (Psych) Assessment & Plan Assessment & Plan (1) GERD (gastroesophageal reflux disease): Code(s): K21.9 - Gastro-esophageal reflux disease without esophagitis Qualifiers: Esophagitis presence: esophagitis presence not specified Qualified Code(s): K21.9 - Gastro-esophageal reflux disease without esophagitis (2) Status post colonoscopy: Code(s): Z98.890 - Other specified postprocedural states Plan Will switch PPI to pantoprazole as this one is covered by her insurance. Take it twice a day for the next 3 months then daily. Follow-up in 6 months so we can discuss going for repeat endoscopy. Patient will call our office if she will continue to have symptoms despite taking the medication. Discussed with patient the importance of avoiding dietary triggers and late night snacking. Staying upright for minimum 3 hours after meals discussed with her. Colonoscopy in 10 years unless clinically necessary. Patient is agreeable to current plan of care and verbalizes understanding of instructions. She was given the opportunity to ask questions and all questions answered. Thank you for allowing me to participate in her care Orders: Orders [place] barium swallow Today R13.10 - Dysphagia, unspecified Medications: New pantoprazole 20 mg PO BID 60 tabs 2RF Discontinued omeprazole Take 1 cap twice a day for 8 weeks and then once daily Discontinued Reason: Doctor's Order 20 mg PO BID 90 days 180 caps 0RF Coding Level of Care Code Est Pt Level 3 (33815) Diagnoses Gastroesophageal reflux disease, unspecified whether esophagitis present K21.9 Esophagitis presence: esophagitis presence not specified Status post colonoscopy Z98.890 Time Spent (min) 30 Comment 20 minutes spent with patient and additional 10 minutes spent reviewing her records
== END 2024-01-23 09:08 | disposition home or self-care (01) ==
PROVIDERS: PCP Internal Medicine; Visit Provider Nurse Practitioner Family
DX: K21.9 Gastro-esophageal reflux disease without esophagitis (principal); Z98.890 Other specified postprocedural states
CPT/HCPCS: 99213

== ENCOUNTER 2024-03-09 14:38 | Outpatient (REF) | payer BC, SELFPAY ==
--- NOTE | ~2024-03-09 | XR_ITS ---
CLINICAL HISTORY: M25.562 - Pain in left knee Left knee two views Comparison: None Findings: Severe degenerative arthritis in the lateral compartment with accentuated valgus angulation. Large patellar osteophytes and narrowing of the patellofemoral compartment. Mild degenerative changes medial compartment. No acute fracture or dislocation. Small joint effusion. Soft tissues intact. 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 This document has been electronically signed by: Marlon Mitchell MD on 03/12/2024 13:02:18
--- OUTSIDE RECORDS SUMMARY | 2024-03-09 16:00 | XMS_ITS | Continuity of Care Document ---
Author Organization [place] - [facility], Allergy Address [address] [place] [address] Assessment Encounter Date Assessment Date Assessment LastModified by Organization Details LastModified Time 03/01/2024 03/01/2024 Visit With: Juaquin Yañez RN Use of Antihistamine s: No If yes: Vial Test Change in medications: No If yes ?? Increase in asthma symptoms No Asthma Hx If yes, inhaler use: Reaction to last injections: No If yes: ?? Allergy Symptoms: Other: ?? Missed: Dose Aware of Vial Test Notes:?? hlorinser Not available 03/01/2024 09:38:18 Plan of Treatment Reminders Order Date Submit Date Provider Last Modified By Organization Details Last Modified Time Details Appointments [facility]- Allergy f-up 6mon 2024 09:30A M JOSE STONE MD Not available Not available Not available Lab None recorded . Referral None recorded . Procedures None recorded . Surgeries None recorded . Imaging None recorded . Medication Orders None recorded . Patient TargetsNo targets recorded. Patient InstructionsNo instructions recorded. Reason for Referral None Reported. Problems Name Problem SNOMED Code Status Onset Date Resolution Date Notes Provider Name and Address Organization Details Recorded Time Achalasia of esophagus 86803502 Active 2022 Achalasia NOS; Note: Date Diagnosed : 06/23/2022 2:49 PM (K22.0) Not Available [facility] 4 03:10:05 Respirato ry finding 582010280 Active 2022 Feeling of foreign body in throat; Note: Date Diagnosed : 06/23/2022 2:49 PM (R09.89) Not Available [facility] 4 03:10:05 Cardiovas cular finding 704961143 Active 2022 Feeling of foreign body in throat; Note: Date Diagnosed : 06/23/2022 2:49 PM (R09.89) Not Available [facility] 4 03:10:05 Posterior rhinorrhe a 68661921 Active 2022 Postnasal drip; Note: Date Diagnosed : 06/23/2022 2:49 PM (R09.82) Not Available [facility] 4 03:10:04 Allergic rhinitis 30298410 Active 2023 Allergic rhinitis: Due to other allergen; Note: Date Diagnosed : 03/23/2023 10:22 AM (477.8) Note: Date Diagnosed : 03/23/2023 10:22 AM (477.8) Allergi c rhinitis: Due to other allergen; Note: Date Diagnosed : 03/16/2023 9:47 AM (477.8) Note: Date Diagnosed : 03/16/2023 9:47 AM (477.8) ; Start Date : 4 Allergi c rhinitis: Due to other allergen; Note: Date Diagnosed : 03/09/2023 11:49 AM (477.8) Note: Date Diagnosed : 03/09/2023 11:49 AM (477.8) ; Start Date : 4 Allergi c rhinitis: Due to other allergen; Note: Date Diagnosed : 3 1:19 PM (477.8) Note: Date Diagnosed : 3 1:19 PM (477.8) ; Start Date : 3 Allergi c rhinitis: Due to other allergen; Note: Date Diagnosed : 02/09/2023 11:32 AM (477.8) Note: Date Diagnosed : 02/09/2023 11:32 AM (477.8) ; Start Date : 3 Allergi c rhinitis: Due to other allergen; Note: Date Diagnosed : 3 9:49 AM (477.8) Note: Date Diagnosed : 3 9:49 AM (477.8) ; Start Date : 3 Allergi c rhinitis: Due to other allergen; Note: Date Diagnosed : 3 9:20 AM (477.8) Note: Date Diagnosed : 3 9:20 AM (477.8) ; Start Date : 3 Allergi c rhinitis: Due to other allergen; Note: Date Diagnosed : 10:04 AM (477.8) Note: Date Diagnosed : 10:04 AM (477.8) ; Start Date : 3 Allergi c rhinitis: Due to other allergen; Note: Date Diagnosed : 01/11/2023 10:16 AM (477.8) Note: Date Diagnosed : 01/11/2023 10:16 AM (477.8) ; Start Date : 3 Allergi c rhinitis: Due to other allergen; Note: Date Diagnosed : 01/06/2023 10:27 AM (477.8) Note: Date Diagnosed : 01/06/2023 10:27 AM (477.8) ; Start Date : 3 Allergi c rhinitis: Due to other allergen; Note: Date Diagnosed : 3 1:12 PM (477.8) Note: Date Diagnosed : 3 1:12 PM (477.8) ; Start Date : 3 Allergi c rhinitis: Due to other allergen; Note: Date Diagnosed : 3 9:56 AM (477.8) Note: Date Diagnosed : 3 9:56 AM (477.8) ; Start Date : 3 Allergi c rhinitis: Due to other allergen; Note: Date Diagnosed : 10:24 AM (477.8) Note: Date Diagnosed : 10:24 AM (477.8) ; Start Date : 3 Allergi c rhinitis: Due to other allergen; Note: Date Diagnosed : 12/08/2022 11:30 AM (477.8) Note: Date Diagnosed : 12/08/2022 11:30 AM (477.8) ; Start Date : 3 Allergi c rhinitis: Due to other allergen; Note: Date Diagnosed : 12/01/2022 2:17 PM (477.8) Note: Date Diagnosed : 12/01/2022 2:17 PM (477.8) ; Start Date : Allergi c rhinitis: Due to other allergen; Note: Date Diagnosed : 11/25/2022 12:18 PM (477.8) Note: Date Diagnosed : 11/25/2022 12:18 PM (477.8) ; Start Date : Allergi c rhinitis: Due to other allergen; Note: Date Diagnosed : 11/16/2022 9:23 AM (477.8) Note: Date Diagnosed : 11/16/2022 9:23 AM (477.8) ; Start Date : Allergi c rhinitis: Due to other allergen; Note: Date Diagnosed : 11/11/2022 11:35 AM (477.8) Note: Date Diagnosed : 11/11/2022 11:35 AM (477.8) ; Start Date : Allergi c rhinitis: Due to other allergen; Note: Date Diagnosed : 11/05/2022 10:29 AM (477.8) Note: Date Diagnosed : 11/05/2022 10:29 AM (477.8) ; Start Date : Allergi c rhinitis: Due to other allergen; Note: Date Diagnosed : 10/27/2022 10:04 AM (477.8) Note: Date Diagnosed : 10/27/2022 10:04 AM (477.8) ; Start Date : Allergi c rhinitis: Due to other allergen; Note: Date Diagnosed : 10/20/2022 10:25 AM (477.8) Note: Date Diagnosed : 10/20/2022 10:25 AM (477.8) ; Start Date : Allergi c rhinitis: Due to other allergen; Note: Date Diagnosed : 10/15/2022 10:42 AM (477.8) Note: Date Diagnosed : 10/15/2022 10:42 AM (477.8) ; Start Date : Allergi c rhinitis: Due to other allergen; Note: Date Diagnosed : 10/15/2022 10:43 AM (477.8) Note: Date Diagnosed : 10/15/2022 10:43 AM (477.8) ; Start Date : 3 Allergi c rhinitis: Due to other allergen; Note: Date Diagnosed : 10/16/19 Not Available [facility] 4 01:25:32 Deviated nasal septum 370211103 Active 2022 Deviated nasal septum; Note: Date Diagnosed : 06/23/2022 2:49 PM (J34.2) Not Available [facility] 4 03:10:04 Perennial allergic rhinitis 212632263 Active 2023 KEN CARDENAS, [facility] [address] [facility],[address], [place], [address] , [place] - [facility] 4 10:29:26 Snoring 45729640 Active 2023 Snoring; Note: Date Diagnosed : 04/04/2023 8:51 AM (R06.83) Not Available [facility] 4 03:10:03 Obesity 483149287 Active 2023 Other obesity; Note: Date Diagnosed : 04/04/2023 8:51 AM (E66.8) Not Available [facility] 4 03:10:04 Tinnitus of vascular origin 960899041 Active 2023 Pulsatile tinnitus, right ear; Note: Date Diagnosed : 04/04/2023 8:49 AM (H93.A1) Not Available [facility] 4 03:10:04 Sensorine ural hearing loss 59816981 Active 2023 Sensorine ural hearing loss, unilatera l, right ear, with unrestric jaswant hearing on the contralat eral side; Note: Date Diagnosed : 04/04/2023 9:26 AM (H90.41) Not Available [facility] 4 03:10:05 Abnormal auditory perceptio n 43116486 Active 2023 JOSE VELÁZQUEZ MD [address] [facility], [place], [address] , [facility] - [facility] 4 21:49:47 Subjectiv e pulsatile tinnitus of right ear [id number] 64590 Active 2023 JOSE VELÁZQUEZ MD [address] [facility],[place] [address], [place], [address] , [facility] - [facility] 4 21:53:02 Abnormal auditory perceptio n 93468687 Active 2023 JOSE VELÁZQUEZ MD [address] [facility],[place] [address], [place], [address] , [facility] - [facility] 4 09:14:23 Non-aller gic rhinitis 29158788722 1 Active 2023 [place] - [facility] 4 12:14:47 Seasonal allergic rhinitis 481372934 Active 2023 [place] - [facility] 4 12:14:47 Chronic sinusitis 12847266 Active 2023 [place] hernández [place] - [facility] 4 12:16:47 Polyp of nasal cavity 318065853 Active 2023 [place] - [facility] 4 12:17:03 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 Procedures Surgical History Date Name Laterality Status Provider Name and Address Organization Details Recorded Time 03/08/19 25 Allergy Immunotherapy Injections completed SCOTTY GUTHRIE [address] [facility],[address], [address], [facility] - [facility] 03/08/2024 12:13:50 03/01/20 24 Allergy Immunotherapy Injections completed JUAQUIN YAÑEZ RN [address] [facility],[place] [address], [place], [address], [facility] - [facility] 03/01/2024 09:38:10 02/23/20 24 Allergy Immunotherapy Injections completed JUAQUIN YAÑEZ RN [address], [place], [address], [place] - [facility] 02/23/2024 10:01:24 02/14/20 24 Allergy Immunotherapy Injections completed SCOTTY GUTHRIE [address], [place], [address], [place] [facility] 02/14/2024 11:05:56 02/07/20 24 Allergy Immunotherapy Injections completed JUAQUIN YAÑEZ RN [address] [facility] [address], [place], [address], [place] [facility] 02/07/2024 10:14:23 02/03/20 24 Allergy Immunotherapy Injections completed SCOTTY RICE [address] [facility] [address] [facility], [place], [address], [place] [facility] 02/03/2024 09:34:55 01/24/20 24 Allergy Immunotherapy Injections completed JUAQUIN YAÑEZ RN [address] [facility] [address] [place] [address], [address], [place] [facility] 01/24/2024 10:50:50 01/19/20 24 Allergy Immunotherapy Injections completed SCOTTY RICE [address] [facility] [address] [place] [address], [address], [place] [facility] 01/19/2024 13:18:23 01/10/20 24 Allergy Immunotherapy Injections completed SCOTTY RICE [address] [facility] [address] [place] [address], [address], [place] [facility] 01/10/2024 09:42:22 01/03/20 24 Allergy Immunotherapy Injections completed JUAQUIN YAÑEZ RN [address] [facility] [address] [place] [address], [address], [place] [facility] 01/03/2024 11:08:00 12/29/19 24 Allergy Immunotherapy Injections completed SCOTTY RICE [address] [facility] [address], [place], [address], [place] [facility] 12/29/2023 09:38:54 12/21/19 24 Allergy Immunotherapy Injections completed KEN CARDENAS, RMA [address], [place], [address], [place] [facility] 12/21/2023 11:30:52 12/14/19 24 Allergy Immunotherapy Injections completed JUAQUIN YAÑEZ RN [address] [facility] [address], [place], [address], [place] [facility] 12/14/2023 11:25:12 11/23/19 24 Allergy Immunotherapy Injections completed KEN CARDENAS, RMA [address] [facility] [address], [place], [address], [place] [facility] 11/23/2023 10:31:13 11/17/19 24 Allergy Immunotherapy Injections completed KEN CARDENAS, A [address] [facility] [address] [place] [address], [address], [place] [facility] 11/17/2023 09:42:16 11/09/19 24 Allergy Immunotherapy Injections completed JUAQUIN YAÑEZ RN [address] [facility],[address] [place] [address], [address], [place] [facility] 11/09/2023 11:29:05 11/01/19 24 Allergy Immunotherapy Injections completed JUAQUIN YAÑEZ RN [address] [facility],[address], [address], [place] [facility] 11/01/2023 10:43:38 10/27/19 24 Allergy Immunotherapy Injections completed KEN CARDENAS Isabela [address] [facility],[address] [place] [address], [address], [place] [facility] 10/27/2023 11:59:30 10/19/19 24 Allergy Immunotherapy Injections completed JUAQUIN YAÑEZ RN [address] [facility],[address] [place] [address], [address], [place] [facility] 10/19/2023 10:27:27 10/19/19 24 Air & Speech Audio with Tymps (219[address], [address]138 & 65556) completed DARRIUS OSMAN MA, CCC-A [address] [facility],[address], [place], [address], [place] [facility] 10/19/2023 09:45:15 10/11/19 24 Allergy Immunotherapy Injections completed SCOTTY RICE [address], [place], [address], [place] [facility] 10/11/2023 09:44:13 10/04/19 24 Allergy Immunotherapy Injections completed KEN CARDENAS RMIsabela [address], [place], [address], [place] [facility] 10/04/2023 12:12:37 09/27/19 24 Allergy Immunotherapy Injections completed JUAQUIN YAÑEZ RN [address] [facility] [address] [place] [address], [address], [place] [facility] 09/27/2023 10:51:29 09/20/19 24 Allergy Immunotherapy Injections completed JUAQUIN YAÑEZ RN [address] [facility] [address] [place] [address], [address], [place] [facility] 09/20/2023 10:20:29 09/13/19 24 Allergy Immunotherapy Injections completed SCOTTY RICE [address] [place] [address], [address], [place] [facility] 09/13/2023 12:56:00 09/05/19 24 Allergy Immunotherapy Injections completed JUAQUIN YAÑEZ RN [address] [facility] [address] [place] [address], [address], [place] [facility] 09/05/2023 09:56:55 08/31/19 24 Allergy Immunotherapy Injections completed SCOTTY RICE [address], [place], [address], [place] [facility] 08/31/2023 09:14:03 08/23/19 24 Allergy Immunotherapy Injections completed KEN CARDENAS RMA [address], [place], [address], [place] [facility] 08/23/2023 09:35:11 08/17/19 24 Allergy Immunotherapy Injections completed KEN CARDENAS RMA [address], [place], [address], [facility] - [facility] 08/17/2023 10:13:24 08/10/19 24 Allergy Immunotherapy Injections completed KEN AGRAWAL, RM [address] [facility],[address], [address], [facility] - [facility] 08/10/2023 11:14:06 08/03/19 24 Allergy Immunotherapy Injections completed JUAQUIN YAÑEZ RN [address] [facility],[address], [address], [facility] - [facility] 08/03/2023 10:25:33 07/27/19 24 Allergy Immunotherapy Injections completed KEN NGHIA, RM [address] [facility],[address], [address], [facility] 07/27/2023 10:39:49 07/21/19 24 Allergy Immunotherapy Injections completed [facility], [facility] [address] [facility],[address], [address], [facility] 07/21/2023 10:29:54 Imaging Results None recorded. Procedure Notes None recorded. Medical Equipment None Reported. Allergies Allergen ID Allergen Name Allergen Category Reaction Reaction Severity Criticality Documentation Date Start Date Code Code System Note Provider Name and Address Organization Details Recorded Time [id number] oxycodone medicatio n Not available Not available Not available 07/19/2023 7804 RxNorm React ion: Dizzi ness, Abdom inal pain, Weakn ess; Not Available [facility] 4 01:20:52 978436 lactose Not available diarrhea Not available Not available 07/19/2023 6211 RxNorm React ion: Diarr hea; Not Available [facility] 4 01:20:53 Medications Name Sig Start Date Stop Date Status Note LastModified by Organization Details LastModified Time iron 65mg tab TAKE 1 TABLET BY MOUTH ONCE DAILY active Not Available Not Available No t Available cyclobenz aprine 10 mg tablet TAKE 1 TABLET BY MOUTH THREE TIMES DAILY NEEDED FOR MUSCLE SPASM active Not Available Not Available No t Available meloxicam 15 mg tablet 09/08 completed Medicati on ID: [id number] B rand Name: dwight hill Send Method: E-Prescr ibed Sub s Allowed: subs OK Speci al Instruct ion: TAKE 1 TABLET BY MOUTH ONCE DAILY WITH FOOD Med icationG enericNa me: meloxica m Not Available Not Available Not Available naltrexon e 50 mg tablet TAKE 1 TABLET BY MOUTH ONCE DAILY FOR 30 DAYS active Not Available Not Available No t Available prednison e 20 mg tablet Take 3 tablets daily for 3 days, 2 tablets daily for 3 days and 1 tablet daily for 3 days with food 2023 active Not Available Not Available Not Avai lable tramadol 50 mg tablet TAKE 1 TABLET BY MOUTH ONCE DAILY NEEDED FOR PAIN FOR 30 DAYS active Not Available Not Available No t Available levothyro xine 25 mcg tablet TAKE 1 TABLET BY MOUTH ONCE DAILY IN THE MORNING active Not Available Not Available No t Available ferrous sulfate 325 mg (65 mg iron) tablet TAKE 1 TABLET BY MOUTH ONCE DAILY active Not Available Not Available No t Available triamcino lone acetonide 0.025 % topical ointment APPLY THIN LAYER TO IRRITATE D AREA R NECK X1-2 WEEKS THEN TAKE 1 WEEK BREAK. CAN REPEAT AFTER OFF WEEK NEEDED active Not Available Not Available No t Available betametha sone dipropion ate 0.05 % topical cream APPLY CREAM TOPICALL Y TWICE DAILY NEEDED FOR SKIN IRRITATI ON FOR 2 WEEKS active Not Available Not Available No t Available omeprazol e 20 mg capsule,d elayed release Take 1 capsule every day by oral route. active Not Available Not Available No t Available budesonid e 0.5 mg/2 mL suspensio n for nebulizat ion Mix 1 vial in 8 ounces of distille d water with a buffered saline packet. Irrigate nose twice daily. Use half a bottle on each side 2023 active Not Available Not Available Not Avai lable azelastin e 137 mcg (0.1 %) nasal spray USE 2 SPRAY(S) IN EACH NOSTRIL TWICE DAILY DIRECTED active Not Available Not Available No t Available epinephri ne 0.3 mg/0.3 mL injection , auto-inje ctor INJECT CONTENTS OF 1 PEN NEEDED FOR ALLERGIC REACTION active Not Available Not Available No t Available topiramat e 100 mg tablet TAKE 1 TABLET BY MOUTH ONCE DAILY FOR 90 DAYS active Not Available Not Available No t Available fluticaso ne propionat e 50 mcg/actua tion nasal spray,allen pension 2 puff once a day 2023 active Medicati on ID: [id number] D uration Value: 30 Prescri bed By Name: Patrice Reyes nd Name: fluticas one propiona te Send Method: E-Prescr ibed Sub s Allowed: subs OK Medic ationGen ericName : fluticas one propiona te Not Available Not Available Not Available spironola ctone 50 mg tablet TAKE 1 IN THE MORNING FOR 7 DAYS THEN 2 TABLETS BY MOUTH ONCE DAILY IN THE MORNING FOR WEEK 2 THEN 3 IN THE MORNING( OR 2 AM AND 1 AT BEDTIME) STAY WELL HYDRATED . DO NOT CONSUME EXCESS POTASSIU M active Not Available Not Available No t Available Daily Multi-Vit schaefer tablet active Medicati on ID: [id number] B rand Name: Daily Multi-Vi tamin Se nd Method: E-Prescr ibed Sub s Allowed: subs OK Medic ationGen ericName : Daily Multi-Vi tamin Not Available Not Available Not Available bupropion HCl XL 150 mg 24 hr tablet, extended release TAKE 1 TABLET EVERY MORNING active Not Available Not Available No t Available Topamax 50 mg tablet Take 1 tablet twice a day by oral route. active Not Available Not Available No t Available Qsymia 11.25 mg-69 mg capsule, extended release TAKE 1 CAPSULE BY MOUTH ONCE DAILY active Not Available Not Available No t Available Qsymia 3.75 mg-23 mg capsule, extended release active Medicati on ID: [id number] B rand Name: Qsymia S end Method: E-Prescr ibed Sub s Allowed: subs OK Speci al Instruct ion: TAKE 1 CAPSULE BY MOUTH ONCE DAILY FOR 14 DAYS Med icationG enericNa me: Qsymia Not Available Not Available Not Available Qsymia 7.5 mg-46 mg capsule, extended release TAKE 1 CAPSULE BY MOUTH ONCE DAILY active Not Available Not Available No t Available Eliquis 5 mg tablet TAKE 1 TABLET BY MOUTH TWICE DAILY active Not Available Not Available No t Available Eliquis 2.5 mg tablet TAKE 1 TABLET BY MOUTH TWICE DAILY active Not Available Not Available No t Available Jenise Fe 03/26 (28) 1 mg-20 mcg (21)/75 mg (7) tablet 09/08 completed Medicati on ID: [id number] B rand Name: Jenise 03/26 (28) Sen d Method: E-Prescr ibed Sub s Allowed: subs OK Medic ationGen ericName : Jenise 03/26 (28) Not Available Not Available Not Available Vitals None Recorded Social History None recorded. Functional Status None recorded. Mental Status None recorded. Family History Nothing Reported. Medical History Condition Response Allergies/Hayfever Y Thyroid Problems Y Gynecological HistoryNo gynecological history recorded. Obstetrics History GPAL:G 0 P 0 0 0 0 Past Encounters Encounter ID Performer Location Encounter Start Date Encounter Closed Date Diagnosis/Indication Diagnosis SNOMED-CT Code Diagnosis ICD10 Code [id number] VALORIE LUCIO, [facility] Allergy [address] [place] [address],[place] [address] [facility] [address] 02/03/2024 09:25:49 02/03/2024 09:35:31 Perennial allergic rhinitis [id number] J30.89 [id number] JUAQUIN YAÑEZ RN Allergy [address] [place] [address] it[address] 100 [facility] [place] [address] 02/07/2024 10:13:39 02/07/2024 10:14:50 Perennial allergic rhinitis [id number] J30.89 [id number] KEN AGRAWAL [facility] Allergy [address] [place] [address],[place] [place] [address] 02/14/2024 11:05:15 02/14/2024 11:06:25 Perennial allergic rhinitis [id number] J30.89 [id number] JUAQUIN YAÑEZ RN Allergy [address] [place] [address] it[address] 100 [facility] [place] [address] 02/23/2024 10:00:14 02/23/2024 10:01:52 Perennial allergic rhinitis [id number] J30.89 [id number] JUAQUIN YAÑEZ RN Allergy [address] [place] [address] [address] 100 [place] [address] 03/01/2024 09:37:35 03/01/2024 09:38:44 Perennial allergic rhinitis [id number] J30.89 Health Concerns Section Related Observation LastModified by Organization Detai ls LastModified Time None Recorded Concern Status LastModified by Organization Details LastModified Time None Recorded Payers Encounter Date Sequence Insurance Name Policy Number Policy Roche Covered Member ID Roche Member ID Guarantor Name 03/01/2024 1 KETAN: [facility] [id number] Shelia Fitzgerald [id number] Shelia Fitzgerald [employer] Episode No OBEpisode recorded.
--- OUTSIDE RECORDS SUMMARY | 2024-03-09 16:01 | XMS_ITS | Continuity of Care Document ---
Author Organization [place] - [facility], Allergy Address [address] [place] [address] Assessment Encounter Date Assessment Date Assessment LastModified by Organization Details LastModified Time 02/03/2024 02/03/2024 Administered By: Juaquin Yañez RN Use of Antihistamines: No If yes: Vial Test Change in medications: No If yes ?? Increase in asthma symptoms If yes, inhaler use: Reaction to last injections: No If yes: ?? Allergy Symptoms: Other: ?? Missed 1 week Dose Notes:?? [email or web address] Not available 02/03/2024 09:35:11 Plan of Treatment Reminders Order Date Submit Date Provider Last Modified By Organization Details Last Modified Time Details Appointments [facility]- Allergy f-up 6mon 2024 09:30A M JOSE [...] Organization Details Recorded Time Achalasia of esophagus 40863318 Active 2022 Achalasia NOS; Note: Date Diagnosed : 06/23/2022 2:49 PM (K22.0) Not Available [facility] 4 03:10:05 Respirato ry finding 668501349 Active 2022 Feeling of foreign body in throat; Note: Date Diagnosed : 06/23/2022 2:49 PM (R09.89) Not Available [facility] 4 03:10:05 Cardiovas cular finding 100054809 Active 2022 Feeling of foreign body in throat; Note: Date Diagnosed : 06/23/2022 2:49 PM (R09.89) Not Available [facility] 4 03:10:05 Posterior rhinorrhe a 90754582 Active 2022 Postnasal drip; Note: Date Diagnosed : 06/23/2022 2:49 PM (R09.82) Not Available [facility] 4 03:10:04 Allergic rhinitis 51223909 Active 2023 Allergic rhinitis: Due to other [...] 9:49 AM (477.8) Note: Date Diagnosed : 9:49 AM (477.8) ; Start Date : 3 Allergi c rhinitis: Due to other allergen; Note: Date Diagnosed : 9:20 AM (477.8) Note: Date Diagnosed : [...] to other allergen; Note: Date Diagnosed : 9:56 AM (477.8) Note: Date Diagnosed : 9:56 AM (477.8) ; Start Date : [...] Note: Date Diagnosed : 10/16/19 Not Available [facility] 4 01:25:32 Deviated nasal septum 274142958 Active 2022 Deviated nasal septum; Note: Date Diagnosed : 06/23/2022 2:49 PM (J34.2) Not Available [facility] 4 03:10:04 Perennial allergic rhinitis 156181023 Active 2023 KEN CARDENAS, [facility] [address] [facility] [address], [place], [address] , [place] - [facility] 4 10:29:26 Snoring 09994827 Active 2023 Snoring; Note: Date Diagnosed : 04/04/2023 8:51 AM (R06.83) Not Available [facility] 4 03:10:03 Obesity 869173342 Active 2023 Other obesity; Note: Date Diagnosed : 04/04/2023 8:51 AM (E66.8) Not Available [facility] 4 03:10:04 Tinnitus of vascular origin 939550759 Active 2023 Pulsatile tinnitus, right ear; Note: Date Diagnosed : 04/04/2023 8:49 AM (H93.A1) Not Available [facility] 4 03:10:04 Sensorine ural hearing loss 25633157 Active 2023 Sensorine ural hearing loss, unilatera l, right ear, with unrestric jaswant hearing on the contralat eral side; Note: Date Diagnosed : 04/04/2023 9:26 AM (H90.41) Not Available [facility] 4 03:10:05 Abnormal auditory perceptio n 97346204 Active 2023 JOSE VELÁZQUEZ MD [address] [facility],[address], [place], [address] , [place] - [facility] 4 21:49:47 Subjectiv e pulsatile tinnitus of right ear [id number] 73327 Active 2023 JOSE VELÁZQUEZ MD [address] [facility],[place] [address], [place], [address] , [facility] - [facility] 4 21:53:02 Abnormal auditory perceptio n 31680778 Active 2023 JOSE VELÁZQUEZ MD [address] [facility] [address], [place], [address] , 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 Procedures Surgical History Date Name Laterality Status Provider Name and Address Organization Details Recorded Time 03/08/19 25 Allergy Immunotherapy Injections completed SCOTTY GUTHRIE [facility] [place],[address], [address], [facility] - [facility] 03/08/2024 12:13:50 03/01/20 24 Allergy Immunotherapy Injections completed JUAQUIN YAÑEZ RN [address],[place] [address], [place], [address], [facility] - [facility] 03/01/2024 09:38:10 02/23/20 24 Allergy Immunotherapy Injections completed JUAQUIN YAÑEZ RN [address], [place], [address], [place] - [facility] 02/23/2024 10:01:24 02/14/20 24 Allergy Immunotherapy Injections completed SCOTTY GUTHRIE [address],[place] [address], [address], [place] [facility] 02/14/2024 11:05:56 02/07/20 24 Allergy Immunotherapy Injections completed JUAQUIN YAÑEZ RN [address],[place] [address], [address], [place] [facility] 02/07/2024 10:14:23 02/03/20 24 Allergy Immunotherapy Injections completed SCOTTY RICE [address],[place] [address] [place] [address], [address], [place] [facility] 02/03/2024 09:34:55 01/24/20 24 Allergy Immunotherapy Injections completed JUAQUIN YAÑEZ RN [address],[place] [address] [place] [address], [address], [place] [facility] 01/24/2024 10:50:50 01/19/20 24 Allergy Immunotherapy Injections completed SCOTTY RICE [address],[place] [address] [place] [address], [address], [place] [facility] 01/19/2024 13:18:23 01/10/20 24 Allergy Immunotherapy Injections completed SCOTTY RICE [address],[place] [address] [place] [address], [address], [place] [facility] 01/10/2024 09:42:22 01/03/20 24 Allergy Immunotherapy Injections completed JUAQUIN YAÑEZ RN [address],[place] [address] [place] [address], [address], [place] [facility] 01/03/2024 11:08:00 12/29/19 24 Allergy Immunotherapy Injections completed SCOTTY RICE [address],[place] [address], [address], [place] [facility] 12/29/2023 09:38:54 12/21/19 24 Allergy Immunotherapy Injections completed KEN CARDENAS, RMA [address], [place], [address], [place] [facility] 12/21/2023 11:30:52 12/14/19 24 Allergy Immunotherapy Injections completed JUAQUIN YAÑEZ RN [address] [facility], [place], [address], [place] [facility] 12/14/2023 11:25:12 11/23/19 24 Allergy Immunotherapy Injections completed KEN CARDENAS, RMA [address], [place], [address], [place] [facility] 11/23/2023 10:31:13 11/17/19 24 Allergy Immunotherapy Injections completed KEN CARDENAS, A [facility] [place],[address] [facility], [place], [address], [place] [facility] 11/17/2023 09:42:16 11/09/19 24 Allergy Immunotherapy Injections completed JUAQUIN YAÑEZ RN [address] [facility],[address], [address], [facility] - [facility] 11/09/2023 11:29:05 11/01/19 24 Allergy Immunotherapy Injections completed JUAQUIN YAÑEZ RN [address] [facility],[address], [address], [facility] - [facility] 11/01/2023 10:43:38 10/27/19 24 Allergy Immunotherapy Injections completed [facility] CARDENAS, [facility] [place] [address] [place] [address], [address], [facility] - [facility] 10/27/2023 11:59:30 10/19/19 24 Allergy Immunotherapy Injections completed JUAQUIN YAÑEZ RN [address] [facility],[place] [address] [place] [address], [address], [place] [facility] 10/19/2023 10:27:27 10/19/19 24 Air & Speech Audio with Tymps (13938, 60629 & 66329) completed DARRIUS OSMAN MA, CCC-A [address] [facility],[place] [address] [place] [address], [address], [place] [facility] 10/19/2023 09:45:15 10/11/19 24 Allergy Immunotherapy Injections completed SCOTTY RICE [address],[place] [address], [address], [place] [facility] 10/11/2023 09:44:13 10/04/19 24 Allergy Immunotherapy Injections completed KEN CARDENAS RMKendell [address],[place] [address], [address], [place] [facility] 10/04/2023 12:12:37 09/27/19 24 Allergy Immunotherapy Injections completed JUAQUIN YAÑEZ RN [address],[place] [address] [place] [address], [address], [place] [facility] 09/27/2023 10:51:29 09/20/19 24 Allergy Immunotherapy Injections completed JUAQUIN YAÑEZ RN [address],[place] [address] [place] [address], [address], [place] [facility] 09/20/2023 10:20:29 09/13/19 24 Allergy Immunotherapy Injections completed SCOTTY RICE [address],[place] [address] [place] [address], [address], [place] [facility] 09/13/2023 12:56:00 09/05/19 24 Allergy Immunotherapy Injections completed JUAQUIN YAÑEZ RN [address],[place] [address] [place] [address], [address], [place] [facility] 09/05/2023 09:56:55 08/31/19 24 Allergy Immunotherapy Injections completed SCOTTY RICE [address],[place] [address] [place] [address], [address], [place] [facility] 08/31/2023 09:14:03 08/23/19 24 Allergy Immunotherapy Injections completed KEN CARDENAS RMA [address],[place] [address], [address], [place] [facility] 08/23/2023 09:35:11 08/17/19 24 Allergy Immunotherapy Injections completed KEN CARDENAS RMA [address],[place] [address], [address], [place] - [facility] 08/17/2023 10:13:24 08/10/19 24 Allergy Immunotherapy Injections completed KEN AGRAWALC, RMA [address] [facility],[address], [address], [facility] 08/10/2023 11:14:06 08/03/19 24 Allergy Immunotherapy Injections completed JUAQUIN YAÑEZ RN [address] [facility],[address], [address], [facility] 08/03/2023 10:25:33 07/27/19 24 Allergy Immunotherapy Injections completed KNE NGHIA, RMA [address] [facility],[address], [address], [facility] 07/27/2023 10:39:49 07/21/19 24 Allergy Immunotherapy Injections completed [facility] [address] [facility],[address], [address], [facility] 07/21/2023 10:29:54 Imaging Results None recorded. Procedure Notes None recorded. Medical Equipment None Reported. Allergies Allergen ID Allergen Name Allergen Category Reaction Reaction Severity Criticality Documentation Date Start Date Code Code System Note Provider Name and Address Organization Details Recorded Time 880472 oxycodone medicatio n Not available Not available Not available 07/19/2023 7804 RxNorm React ion: Dizzi ness, Abdom inal pain, Weakn ess; Not Available [facility] 4 01:20:52 105727 lactose Not available diarrhea Not available Not available 07/19/2023 6211 RxNorm React ion: Diarr hea; Not Available [facility] 4 01:20:53 Medications Name Sig Start Date [...] mg tablet 09/08 completed Medicati on ID: [id number] B rand Name: dwight hill Send Method: E-Prescr ibed Sub s Allowed: subs OK Speci al Instruct ion: TAKE 1 TABLET BY MOUTH ONCE DAILY WITH FOOD Med icationG chrisNa me: meloxica m Not Available Not Available [...] a day 2023 active Medicati on ID: [id number] D uration Value: 30 Prescri bed By [...] Multi-Vit schaefer tablet active Medicati on ID: [id number] B rand Name: Daily Multi-Vi tamin Se [...] capsule, extended release active Medicati on ID: [id number] B rand Name: Qsymia S end Method: [...] (7) tablet 09/08 completed Medicati on ID: [id number] B rand Name: Jenise Fe /20 (28) Sen d Method: E-Prescr ibed Sub [...] Diagnosis/Indication Diagnosis SNOMED-CT Code Diagnosis ICD10 Code 31556 JUAQUIN YAÑEZ RN Allergy [address] [place] [address],[place] [address] [place] [address] 01/03/2024 11:06:53 01/03/2024 11:08:17 Perennial allergic rhinitis 901814024 J30.89 [id number] [facility] Allergy [address] [place] [address],[place] [address] [place] [address] 01/10/2024 09:41:40 01/10/2024 09:42:52 Perennial allergic rhinitis 774088862 J30.89 [id number] [facility] Allergy [address] [place] [address],[place] [place] [address] [place] [address] 01/19/2024 13:16:02 01/19/2024 13:20:09 Perennial allergic rhinitis [id number] J30.89 [id number] JUAQUIN YAÑEZ RN Allergy [address] [place] [address],[place] [place] [address] [place] [address] 01/24/2024 10:49:50 01/24/2024 10:52:32 Perennial allergic rhinitis 631801595 J30.89 26787 [facility] Allergy [address] [place] [address],[place] [address] [place] [address] 02/03/2024 09:25:49 02/03/2024 09:35:31 Perennial allergic rhinitis 279763634 J30.89 Health Concerns Section Related Observation LastModified by Organization Detai ls LastModified Time None Recorded Concern Status LastModified by Organization Details LastModified Time None Recorded Payers Encounter Date Sequence Insurance Name Policy Number Policy Roche Covered Member ID Roche Member ID Guarantor Name 02/03/2024 1 KETAN: [facility] [id number] Shelia Fitzgerald [id number] Shelia Fitzgerald OBDeepali Episode No OBEpisode recorded.
--- OUTSIDE RECORDS SUMMARY | 2024-03-09 16:01 | XMS_ITS | Continuity of Care Document ---
Author Organization [place] [facility], Allergy Address [address] [address] Assessment Encounter Date Assessment Date Assessment LastModified by Organization Details LastModified Time 02/07/2024 02/07/2024 Administered By: Juaquin Yañez RN Use of Antihistamines: No If yes: Vial Test Change in medications: No If yes ?? Increase in asthma symptoms No Asthma Hx If yes, inhaler use: Reaction to last injections: No If yes: ?? Allergy Symptoms: Other: ?? Missed 1 week Dose Notes:?? [email or web address] Not available 02/07/2024 10:14:34 Plan of Treatment Reminders Order Date Submit Date Provider Last Modified By Organization Details Last Modified Time Details Appointments [facility]- Allergy f-up 6mon 2024 09:30A M JOSE [...] Organization Details Recorded Time Achalasia of esophagus 92463564 Active 2022 Achalasia NOS; Note: Date Diagnosed : 06/23/2022 2:49 PM (K22.0) Not Available [facility] 4 03:10:05 Respirato ry finding 846856394 Active 2022 Feeling of foreign body in throat; Note: Date Diagnosed : 06/23/2022 2:49 PM (R09.89) Not Available [facility] 4 03:10:05 Cardiovas cular finding 053924115 Active 2022 Feeling of foreign body in throat; Note: Date Diagnosed : 06/23/2022 2:49 PM (R09.89) Not Available [facility] 4 03:10:05 Posterior rhinorrhe a 92060332 Active 2022 Postnasal drip; Note: Date Diagnosed : 06/23/2022 2:49 PM (R09.82) Not Available [facility] 4 03:10:04 Allergic rhinitis 44151086 Active 2023 Allergic rhinitis: Due to other [...] Note: Date Diagnosed : 10/16/19 Not Available [facility] 4 01:25:32 Deviated nasal septum 703662045 Active 2022 Deviated nasal septum; Note: Date Diagnosed : 06/23/2022 2:49 PM (J34.2) Not Available [facility] 4 03:10:04 Perennial allergic rhinitis 113727972 Active 2023 KEN CARDENAS, A [address] [facility] 100, [place], [address] , [place] [facility] 4 10:29:26 Snoring 83080196 Active 2023 Snoring; Note: Date Diagnosed : 04/04/2023 8:51 AM (R06.83) Not Available [facility] 4 03:10:03 Obesity 440675501 Active 2023 Other obesity; Note: Date Diagnosed : 04/04/2023 8:51 AM (E66.8) Not Available [facility] 4 03:10:04 Tinnitus of vascular origin 464938704 Active 2023 Pulsatile tinnitus, right ear; Note: Date Diagnosed : 04/04/2023 8:49 AM (H93.A1) Not Available [facility] 4 03:10:04 Sensorine ural hearing loss 91998791 Active 2023 Sensorine ural hearing loss, unilatera l, right ear, with unrestric jaswant hearing on the contralat eral side; Note: Date Diagnosed : 04/04/2023 9:26 AM (H90.41) Not Available [facility] 4 03:10:05 Abnormal auditory perceptio n 94490690 Active 2023 JOSE VELÁZQUEZ MD [address] [facility],[place] [address], [place], [address] , [facility] 4 21:49:47 Subjectiv e pulsatile tinnitus of right ear [id number] 09486 Active 2023 JOSE VELÁZQUEZ MD [address] [facility],[place] [address], [place], [address] , [facility] - [facility] 4 21:53:02 Abnormal auditory perceptio n 87031876 Active 2023 JOSE VELÁZQUEZ MD [address] [facility],[place] [address], [place], [address] , [facility] - [facility] 4 09:14:23 Non-aller gic rhinitis 85832097746 1 Active 2023 Oh hernández [place] - [facility] [place] 4 12:14:47 Seasonal allergic rhinitis 874802507 Active 2023 Oh hernández [place] [facility] 4 12:14:47 Chronic sinusitis 84407584 Active 2023 Oh hernández [place] [facility] 4 12:16:47 Polyp of nasal cavity 363306775 Active 2023 Oh hernández [place] [facility] 4 12:17:03 Polypoid sinus degenerat ion 47198733 Active 2023 Oh hernández [place] [facility] 4 12:17:03 Problem Notes None recorded. Procedures Surgical History Date Name Laterality Status Provider Name and Address Organization Details Recorded Time 03/08/19 25 Allergy Immunotherapy Injections completed SCOTTY GUTHRIE [address] [facility],[address], [address], [place] - [facility] 03/08/2024 12:13:50 03/01/20 24 Allergy Immunotherapy Injections completed JUAQUIN YAÑEZ RN [address] [facility],[place] [address], [place], [address], [facility] - [facility] 03/01/2024 09:38:10 02/23/20 24 Allergy Immunotherapy Injections completed JUAQUIN YAÑEZ RN [address],[place] [address], [place], [address], [place] [facility] 02/23/2024 10:01:24 02/14/20 24 Allergy Immunotherapy Injections completed SCOTTY GUTHRIE [address],[place] [address], [place], [address], [place] [facility] 02/14/2024 11:05:56 02/07/20 24 Allergy Immunotherapy Injections completed JUAQUIN YAÑEZ RN [address],[place] [address], [place], [address], [place] [facility] 02/07/2024 10:14:23 02/03/20 24 Allergy Immunotherapy Injections completed SCOTTY RICE [address],[place] [address] [place] [address], [address], [place] [facility] 02/03/2024 09:34:55 01/24/20 24 Allergy Immunotherapy Injections completed JUAQUIN YAÑEZ RN [address],[place] [address] [place] [address], [address], [place] [facility] 01/24/2024 10:50:50 01/19/20 24 Allergy Immunotherapy Injections completed SCOTTY RICE [address],[place] [address] [place] [address], [address], [place] [facility] 01/19/2024 13:18:23 01/10/20 24 Allergy Immunotherapy Injections completed SCOTTY RICE [address],[place] [address] [place] [address], [address], [place] [facility] 01/10/2024 09:42:22 01/03/20 24 Allergy Immunotherapy Injections completed JUAQUIN YAÑEZ RN [address],[place] [address] [place] [address], [address], [place] [facility] 01/03/2024 11:08:00 12/29/19 24 Allergy Immunotherapy Injections completed SCOTTY RICE [address],[place], [address], [place] [facility] 12/29/2023 09:38:54 12/21/19 24 Allergy Immunotherapy Injections completed KEN CARDENAS, RMA [address],[place] [address], [place], [address], [place] [facility] 12/21/2023 11:30:52 12/14/19 24 Allergy Immunotherapy Injections completed JUAQUIN YAÑEZ RN [address],[place] [address], [place], [address], [place] [facility] 12/14/2023 11:25:12 11/23/19 24 Allergy Immunotherapy Injections completed KEN CARDENAS, RMA [address],[place] [address], [place], [address], [place] [facility] 11/23/2023 10:31:13 11/17/19 24 Allergy Immunotherapy Injections completed KEN CARDENAS, RMA [address] [facility],[place] [address] [place] [address], [address], [place] [facility] 11/17/2023 09:42:16 11/09/19 24 Allergy Immunotherapy Injections completed JUAQUIN YAÑEZ RN 100 [facility],[address], [address], [place] [facility] 11/09/2023 11:29:05 11/01/19 24 Allergy Immunotherapy Injections completed JUAQUIN YAÑEZ RN [address] [facility],[address], [address], [place] [facility] 11/01/2023 10:43:38 10/27/19 24 Allergy Immunotherapy Injections completed KEN CARDENAS, [facility] [address] [facility],[place] [address] [place] [address], [address], [place] [facility] 10/27/2023 11:59:30 10/19/19 24 Allergy Immunotherapy Injections completed JUAQUIN YAÑEZ RN [address] [facility],[place] [address] [place] [address], [address], [place] [facility] 10/19/2023 10:27:27 10/19/19 24 Air & Speech Audio with Tymps (66382, 62750 & 16858) completed DARRIUS OSMAN MA, CCC-A [address] [facility],[place] [address] [place] [address], [address], [place] [facility] 10/19/2023 09:45:15 10/11/19 24 Allergy Immunotherapy Injections completed SCOTTY RICE [address],[place] [address], [place], [address], [place] [facility] 10/11/2023 09:44:13 10/04/19 24 Allergy Immunotherapy Injections completed KEN CARDENAS RMKendell [address],[place] [address], [place], [address], [place] [facility] 10/04/2023 12:12:37 09/27/19 24 Allergy Immunotherapy Injections completed JUAQUIN YAÑEZ RN [address],[place] [address], [place], [address], [place] [facility] 09/27/2023 10:51:29 09/20/19 24 Allergy Immunotherapy Injections completed JUAQUIN YAÑEZ RN [address],[place] [address] [place] [address], [address], [place] [facility] 09/20/2023 10:20:29 09/13/19 24 Allergy Immunotherapy Injections completed SCOTTY RICE [address],[place] [address] [place] [address], [address], [place] [facility] 09/13/2023 12:56:00 09/05/19 24 Allergy Immunotherapy Injections completed JUAQUIN YAÑEZ RN [address],[place] [address] [place] [address], [address], [place] [facility] 09/05/2023 09:56:55 08/31/19 24 Allergy Immunotherapy Injections completed SCOTTY RICE [address],[place] [address], [place], [address], [place] [facility] 08/31/2023 09:14:03 08/23/19 24 Allergy Immunotherapy Injections completed KEN CARDENAS RMA [address],[place] [address], [place], [address], [place] [facility] 08/23/2023 09:35:11 08/17/19 24 Allergy Immunotherapy Injections completed KEN CARDENAS RMA [address],[place] [address], [place], [address], [facility] - [facility] 08/17/2023 10:13:24 08/10/19 24 Allergy Immunotherapy Injections completed KEN AGRAWALC, RMA [address] [facility],[address], [address], [facility] - [facility] 08/10/2023 11:14:06 08/03/19 24 Allergy Immunotherapy Injections completed JUAQUIN YAÑEZ RN 100 [facility],[address], [address], [facility] - [facility] 08/03/2023 10:25:33 07/27/19 24 Allergy Immunotherapy Injections completed KEN NGHIA, RMA [address] [facility],[address], [address], [facility] - [facility] 07/27/2023 10:39:49 07/21/19 24 Allergy Immunotherapy Injections completed [facility], [facility] [address] [facility],[address], [address], [facility] 07/21/2023 10:29:54 Imaging Results None recorded. Procedure Notes None recorded. Medical Equipment None Reported. Allergies Allergen ID Allergen Name Allergen Category Reaction Reaction Severity Criticality Documentation Date Start Date Code Code System Note Provider Name and Address Organization Details Recorded Time [id number] oxycodone medicatio n Not available Not available Not available 07/19/2023 7804 RxNorm React ion: Dizzi ness, Abdom inal pain, Weakn ess; Not Available [facility] 4 01:20:52 544628 lactose Not available diarrhea Not available Not available 07/19/2023 6211 RxNorm React ion: Diarr hea; Not Available [facility] 4 01:20:53 Medications Name Sig Start Date [...] mg tablet 09/08 completed Medicati on ID: [id number] B rand Name: dwight hill Send Method: E-Prescr ibed Sub s Allowed: subs OK Speci al Instruct ion: TAKE 1 TABLET BY MOUTH ONCE DAILY WITH FOOD Med icationG [email or web address] me: meloxica m Not Available Not Available [...] a day 2023 active Medicati on ID: [id number] D uration Value: 30 Prescri bed By [...] Multi-Vit schaefer tablet active Medicati on ID: [id number] B rand Name: Daily Multi-Vi tamin Se [...] capsule, extended release active Medicati on ID: 189371 B rand Name: Qsymia S end Method: [...] (7) tablet 09/08 completed Medicati on ID: [id number] B rand Name: Jenise Fe 1/20 (28) Sen d Method: E-Prescr ibed Sub [...] Diagnosis/Indication Diagnosis SNOMED-CT Code Diagnosis ICD10 Code 23404 VALOIRE LUCIO [facility] Allergy [address] [place] [address],[place]e [address] [place] [place] [address] 01/10/2024 09:41:40 01/10/2024 09:42:52 Perennial allergic rhinitis [id number] J30.89 [id number] VALORIE LUCIO [facility] Allergy [address] [place] [address],[place] 100 [place] [address] 01/19/2024 13:16:02 01/19/2024 13:20:09 Perennial allergic rhinitis 337040112 J30.89 [id number] JUAQUIN YAÑEZ RN Allergy [address] [place] [address],[place] [address] [place] [address] 01/24/2024 10:49:50 01/24/2024 10:52:32 Perennial allergic rhinitis 223004850 J30.89 [id number] VALORIE LUCIO [facility] Allergy [address] [place] [address], ite 100 [place] [address] 02/03/2024 09:25:49 02/03/2024 09:35:31 Perennial allergic rhinitis 354894947 J30.89 [id number] JUAQUIN YAÑEZ RN Allergy [address] [place] [address] [place] [address] 02/07/2024 10:13:39 02/07/2024 10:14:50 Perennial allergic rhinitis 767065028 J30.89 Health Concerns Section Related Observation LastModified by Organization Detai ls LastModified Time None Recorded Concern Status LastModified by Organization Details LastModified Time None Recorded Payers Encounter Date Sequence Insurance Name Policy Number Policy Roche Covered Member ID Roche Member ID Guarantor Name 02/07/2024 1 KETAN: [facility] [id number] Shelia Fitzgerald [id number] Shelia Fitzgerald OBDeepali Episode No OBEpisode recorded.
--- OUTSIDE RECORDS SUMMARY | 2024-03-09 16:01 | XMS_ITS | Continuity of Care Document ---
Author Organization [place] - [facility], Allergy Address [address] [address] Assessment Encounter Date Assessment Date Assessment LastModified by Organization Details LastModified Time 01/10/2024 01/10/2024 Administered By: Kiah Sales Use of Antihistamines: No If yes: Vial Test Change in medications: No If yes ?? Increase in asthma symptoms If yes, inhaler use: Reaction to last injections: No If yes: ?? Allergy Symptoms: Other: ?? Missed 1 week Dose Notes:?? [email or web address] Not available 01/10/2024 09:42:34 Plan of Treatment Reminders Order Date Submit Date Provider Last Modified By Organization Details Last Modified Time Details Appointments - Allergy f-up 6mon 2024 09:30A M CRISTHIAN STONE MD Not available Not available Not available Lab None recorded . Referral None recorded . Procedures None recorded . Surgeries None recorded . Imaging None recorded . Medication Orders None recorded . Patient TargetsNo targets recorded. Patient InstructionsNo instructions recorded. Reason for Referral None Reported. Results Created Date Observation Date Name Description Value Unit Range Abnormal Flag Note LastModifiedBy Organization Detail LastModifiedTime 12/15/19 24 12/14/2023 CT, sinus es, w/o contr ast No observ ation record ed. [facility] [place] [address] [facility] [address], [place], [address], 12/15/2023 13:44:07 Result Notes None recorded. Problems Name Problem SNOMED Code Status Onset Date Resolution Date Notes Provider Name and Address Organization Details Recorded Time Achalasia of esophagus 33571626 Active 2022 Achalasia NOS; Note: Date Diagnosed : 06/23/2022 2:49 PM (K22.0) Not Available [facility] 4 03:10:05 Respirato ry finding 982683659 Active 2022 Feeling of foreign body in throat; Note: Date Diagnosed : 06/23/2022 2:49 PM (R09.89) Not Available [facility] 4 03:10:05 Cardiovas cular finding 388775163 Active 2022 Feeling of foreign body in throat; Note: Date Diagnosed : 06/23/2022 2:49 PM (R09.89) Not Available [facility] 4 03:10:05 Posterior rhinorrhe a 98657348 Active 2022 Postnasal drip; Note: Date Diagnosed : 06/23/2022 2:49 PM (R09.82) Not Available [facility] 4 03:10:04 Allergic rhinitis 73644966 Active 2023 Allergic rhinitis: Due to other [...] to other allergen; Note: Date Diagnosed : 1:19 PM (477.8) Note: Date Diagnosed : [...] 10:04 AM (477.8) Note: Date Diagnosed : 3 10:04 AM (477.8) ; Start Date : [...] other allergen; Note: Date Diagnosed : 3 10:24 AM (477.8) Note: Date Diagnosed : 10:24 AM (477.8) ; Start Date : Allergi c rhinitis: Due to other allergen; Note: Date Diagnosed : 12/08/2022 11:30 AM (477.8) Note: Date Diagnosed : 12/08/2022 11:30 AM (477.8) ; Start Date : Allergi [...] 10:25 AM (477.8) ; Start Date : 3 Allergi c rhinitis: Due to other allergen; Note: Date Diagnosed : 10/15/2022 10:42 AM (477.8) Note: Date Diagnosed : 10/15/2022 10:42 AM (477.8) ; Start Date : 3 Allergi c rhinitis: Due to other allergen; Note: Date Diagnosed : 10/15/2022 10:43 AM (477.8) Note: Date Diagnosed : 10/15/2022 10:43 AM (477.8) ; Start Date : 3 Allergi c rhinitis: Due to other allergen; Note: Date Diagnosed : 10/16/19 Not Available [facility] 4 01:25:32 Deviated nasal septum 435362330 Active 2022 Deviated nasal septum; Note: Date Diagnosed : 06/23/2022 2:49 PM (J34.2) Not Available [facility] 4 03:10:04 Perennial allergic rhinitis 332280543 Active [address],[place] [address], [place], [address] , [facility] - [facility] 4 10:29:26 Snoring 07624336 Active 2023 Snoring; Note: Date Diagnosed : 04/04/2023 8:51 AM (R06.83) Not Available [facility] 4 03:10:03 Obesity 680035020 Active 2023 Other obesity; Note: Date Diagnosed : 04/04/2023 8:51 AM (E66.8) Not Available [facility] 4 03:10:04 Tinnitus of vascular origin 611934301 Active 2023 Pulsatile tinnitus, right ear; Note: Date Diagnosed : 04/04/2023 8:49 AM (H93.A1) Not Available [facility] 4 03:10:04 Sensorine ural hearing loss 07070214 Active 2023 Sensorine ural hearing loss, unilatera l, right ear, with unrestric jaswant hearing on the contralat eral side; Note: Date Diagnosed : 04/04/2023 9:26 AM (H90.41) Not Available [facility] 4 03:10:05 Abnormal auditory perceptio n 75507668 Active 2023 CRISTHIAN VELÁZQUEZ MD [address], [place], [address] , [place] - [facility] 4 21:49:47 Subjectiv e pulsatile tinnitus of right ear 70804216234 26550 Active 2023 CRISTHIAN VELÁZQUEZ MD [address], [place], [address] , [place] - [facility] 4 21:53:02 Abnormal auditory perceptio n 53862464 Active 2023 CRISTHIAN VELÁZQUEZ MD [address] [facility] [place], [place], [address] , [place] - [facility] 4 09:14:23 Non-aller gic rhinitis 35083228505 1 Active 2023 Oh hernández [place] - [facility] 4 12:14:47 Seasonal allergic rhinitis 344380946 Active 2023 Oh hernández [place] - [facility] 4 12:14:47 Chronic sinusitis 87571127 Active 2023 Oh hernández [place] - [facility] 4 12:16:47 Polyp of nasal cavity 933908299 Active 2023 Oh hernández [place] - [facility] 4 12:17:03 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 Procedures Surgical History Date Name Laterality Status Provider Name and Address Organization Details Recorded Time 03/08/19 25 Allergy Immunotherapy Injections completed KEN CARDENAS Isabela [address], [place], [address], [place] - [facility] 03/08/2024 12:13:50 03/01/20 24 Allergy Immunotherapy Injections completed JUAQUIN YAÑEZ RN [address], [place], [address], [place] [facility] 03/01/2024 09:38:10 02/23/20 24 Allergy Immunotherapy Injections completed JUAQUIN YAÑEZ RN [address], [place], [address], [place] [facility] 02/23/2024 10:01:24 02/14/20 24 Allergy Immunotherapy Injections completed SCOTTY GUTHRIE [address] [place] [address], [address], [place] [facility] 02/14/2024 11:05:56 02/07/20 24 Allergy Immunotherapy Injections completed JUAQUIN YAÑEZ RN [address] [facility] [place],[address] [place] [address], [address], [place] [facility] 02/07/2024 10:14:23 02/03/20 24 Allergy Immunotherapy Injections completed SCOTTY RICE [address] [place] [address], [address], [place] [facility] 02/03/2024 09:34:55 01/24/20 24 Allergy Immunotherapy Injections completed JUAQUIN YAÑEZ RN [address] [place] [address], [address], [place] [facility] 01/24/2024 10:50:50 01/19/20 24 Allergy Immunotherapy Injections completed SCOTTY RICE [address], [place], [address], [place] [facility] 01/19/2024 13:18:23 01/10/20 24 Allergy Immunotherapy Injections completed SCOTTY RICE [address], [place], [address], [place] [facility] 01/10/2024 09:42:22 01/03/20 24 Allergy Immunotherapy Injections completed JUAQUIN YAÑEZ RN [address], [place], [address], [place] [facility] 01/03/2024 11:08:00 12/29/19 24 Allergy Immunotherapy Injections completed SCOTTY RICE [address] [facility] [place],[address] [place] [address], [address], [place] [facility] 12/29/2023 09:38:54 12/21/19 24 Allergy Immunotherapy Injections completed KEN CARDENAS RMIsabela [address] [facility] [place],[address], [place], [address], [place] [facility] 12/21/2023 11:30:52 12/14/19 24 Allergy Immunotherapy Injections completed JUAQUIN YAÑEZ RN 100 [facility],[address], [address], [place] [facility] 12/14/2023 11:25:12 11/23/19 24 Allergy Immunotherapy Injections completed SCOTTY GUTHRIE [address] [facility],[address] [place] [address], [address], [place] [facility] 11/23/2023 10:31:13 11/17/19 24 Allergy Immunotherapy Injections completed KEN CARDENAS Isabela [address] [facility],[address] [place] [address], [address], [place] [facility] 11/17/2023 09:42:16 11/09/19 24 Allergy Immunotherapy Injections completed JUAQUIN YAÑEZ RN [address] [facility],[address], [address], [place] [facility] 11/09/2023 11:29:05 11/01/19 24 Allergy Immunotherapy Injections completed JUAQUIN YAÑEZ RN [address] [facility],[address] [place] [address], [address], [place] [facility] 11/01/2023 10:43:38 10/27/19 24 Allergy Immunotherapy Injections completed KEN CARDENAS RMIsabela [address] [facility],[address] [place] [address], [address], [place] [facility] 10/27/2023 11:59:30 10/19/19 24 Allergy Immunotherapy Injections completed JUAQUIN YAÑEZ RN [address], [place], [address], [place] [facility] 10/19/2023 10:27:27 10/19/19 24 Air & Speech Audio with Tymps (34203, 24352 & 30474) completed DARRIUS OSMAN MA, CCC-A [address], [place], [address], [place] [facility] 10/19/2023 09:45:15 10/11/19 24 Allergy Immunotherapy Injections completed SCOTTY RICE [address] [facility],[address] [place] [address], [address], [place] [facility] 10/11/2023 09:44:13 10/04/19 24 Allergy Immunotherapy Injections completed SCOTTY GUTHRIE [address] [place] [address], [address], [place] [facility] 10/04/2023 12:12:37 09/27/19 24 Allergy Immunotherapy Injections completed JUAQUIN YAÑEZ RN 100 [facility],[address], [address], [place] [facility] 09/27/2023 10:51:29 09/20/19 24 Allergy Immunotherapy Injections completed JUAQUIN YAÑEZ RN [address] [facility],[address] [place] [address], [address], [place] [facility] 09/20/2023 10:20:29 09/13/19 24 Allergy Immunotherapy Injections completed SCOTTY RICE [address] [facility],[address] [place] [address], [address], [place] [facility] 09/13/2023 12:56:00 09/05/19 24 Allergy Immunotherapy Injections completed JUAQUIN YAÑEZ RN [address] [facility],[address] [place] [address], [address], [place] [facility] 09/05/2023 09:56:55 08/31/19 24 Allergy Immunotherapy Injections completed SCOTTY RICE [address] [facility],[address] [place] [address], [address], [place] [facility] 08/31/2023 09:14:03 08/23/19 24 Allergy Immunotherapy Injections completed KEN MAGDALENOZEC, RMA [address], [place], [address], [facility] - [facility] 08/23/2023 09:35:11 08/17/19 24 Allergy Immunotherapy Injections completed KEN KORZEC, RMA [address], [place], [address], [facility] - [facility] 08/17/2023 10:13:24 08/10/19 24 Allergy Immunotherapy Injections completed KEN KORZEC, RMA [address], [place], [address], [facility] - [facility] 08/10/2023 11:14:06 08/03/19 24 Allergy Immunotherapy Injections completed JUAQUIN YAÑEZ RN [address], [place], [address], [facility] - [facility] 08/03/2023 10:25:33 07/27/19 24 Allergy Immunotherapy Injections completed KEN MAGDALENOZEC, RMA [address], [place], [address], [facility] - [facility] 07/27/2023 10:39:49 07/21/19 24 Allergy Immunotherapy Injections completed KEN KORZEC, RMA [address], [place], [address], [facility] - [facility] 07/21/2023 10:29:54 Imaging Results None recorded. Procedure Notes None recorded. Medical Equipment None Reported. Allergies Allergen ID Allergen Name Allergen Category Reaction Reaction Severity Criticality Documentation Date Start Date Code Code System Note Provider Name and Address Organization Details Recorded Time 905979 oxycodone medicatio n Not available Not available Not available 07/19/2023 7804 RxNorm React ion: Dizzi ness, Abdom inal pain, Weakn ess; Not Available [facility] 4 01:20:52 895835 lactose Not available diarrhea Not available Not available 07/19/2023 6211 RxNorm React ion: Diarr hea; Not Available [facility] 4 01:20:53 Medications Name Sig Start Date [...] mg tablet 09/08 completed Medicati on ID: [id number] Tyesha narayanan Name: dwight hill Send Method: E-Prescr ibed Sub s Allowed: subs OK Speci al Instruct ion: TAKE 1 TABLET BY MOUTH ONCE DAILY WITH FOOD Med icationG enericNa me: dwight hill Not Available Not Available Not Available naltrexon [...] a day 2023 active Medicati on ID: [id number] D uration Value: 30 Prescri bed By Name: Cristhian spivey M.D. Bra nd Name: fluticas one propiona te Send [...] Multi-Vit schaefer tablet active Medicati on ID: [id number] B rand Name: Daily Multi-Vi tamin Se [...] capsule, extended release active Medicati on ID: [id number] B rand Name: Qsymia S end Method: [...] Available Not Available No t Available Jenise 03/26 () 1 mg-20 mcg (21)/75 mg (7) tablet 09/08 completed Medicati on ID: [id number] B rand Name: Jenise 03/26 () Sen d Method: E-Prescr ibed Sub s Allowed: subs OK Medic ationGen ericName : Jenise 03/26 () Not Available Not Available Not Available Vitals [...] Diagnosis/Indication Diagnosis SNOMED-CT Code Diagnosis ICD10 Code 40077 JUAQUIN YAÑEZ RN Allergy [address] [place] [address] 12/14/2023 11:23:54 12/14/2023 11:25:34 Perennial allergic rhinitis 150045520 J30.89 [id number] [facility] All[facility] [address] [place] [address] 12/21/2023 11:30:12 12/21/2023 11:31:30 Perennial allergic rhinitis 372735965 J30.89 44503 [facility] All[facility] [address] [place] [address] 12/29/2023 09:38:10 12/29/2023 09:40:16 Perennial allergic rhinitis 573069071 J30.89 [id number] JUAQUIN YAÑEZ RN Allergy [address] [place] [address] [address] [place] [address] 01/03/2024 11:06:53 01/03/2024 11:08:17 Perennial allergic rhinitis 118881359 J30.89 67543 [facility] All[facility] [address] [place] [address] 100 [place] [address] 01/10/2024 09:41:40 01/10/2024 09:42:52 Perennial allergic rhinitis 270908912 J30.89 Health Concerns Section Related Observation LastModified by Organization Detai ls LastModified Time None Recorded Concern Status LastModified by Organization Details LastModified Time None Recorded Payers Encounter Date Sequence Insurance Name Policy Number Policy Roche Covered Member ID Roche Member ID Guarantor Name 01/10/2024 1 KETAN: [facility] [place] [id number] Shelia Fitzgerald [id number] Shelia Fitzgerald OBGyn Episode No OBEpisode recorded.
--- OUTSIDE RECORDS SUMMARY | 2024-03-09 16:01 | XMS_ITS | Continuity of Care Document ---
Author Organization [place] [facility], Allergy Address [address] [address] Assessment Encounter Date Assessment Date Assessment LastModified by Organization Details LastModified Time 01/24/2024 01/24/2024 Administered By: Juaquin Yañez RN Use of Antihistamines: No If yes: Vial Test Yes Change in medications: No If yes ?? Increase in asthma symptoms No Asthma Hx If yes, inhaler use: Reaction to last injections: No If yes: ?? Allergy Symptoms: Other: ?? Missed 1 week Dose Notes:?? [email or web address] Not available 01/24/2024 10:52:07 Plan of Treatment Reminders Order Date Submit Date Provider Last Modified By Organization Details Last Modified Time Details Appointments [facility]- Allergy f-up 6mon 2024 09:30A [...] Organization Details Recorded Time Achalasia of esophagus 99718011 Active 2022 Achalasia NOS; Note: Date Diagnosed : 06/23/2022 2:49 PM (K22.0) Not Available [facility] 4 03:10:05 Respirato ry finding 823001782 Active 2022 Feeling of foreign body in throat; Note: Date Diagnosed : 06/23/2022 2:49 PM (R09.89) Not Available [facility] 4 03:10:05 Cardiovas cular finding 658130259 Active 2022 Feeling of foreign body in throat; Note: Date Diagnosed : 06/23/2022 2:49 PM (R09.89) Not Available Replaced by [facility] 4 03:10:05 Posterior rhinorrhe a 95274194 Active 2022 Postnasal drip; Note: Date Diagnosed : 06/23/2022 2:49 PM (R09.82) Not Available Replaced by [facility] 4 03:10:04 Allergic rhinitis 07547277 Active 2023 Allergic rhinitis: Due to other [...] other allergen; Note: Date Diagnosed : 3 10:04 AM (477.8) Note: Date Diagnosed : [...] 10:24 AM (477.8) Note: Date Diagnosed : 3 10:24 AM (477.8) ; Start Date : [...] Note: Date Diagnosed : 10/16/19 Not Available [facility] 4 01:25:32 Deviated nasal septum 472980984 Active 2022 Deviated nasal septum; Note: Date Diagnosed : 06/23/2022 2:49 PM (J34.2) Not Available [facility] 4 03:10:04 Perennial allergic rhinitis 164636326 Active 2023 KEN CARDENAS A 100 [facility], [place], [address] , [place] - [facility] 4 10:29:26 Snoring 66503565 Active 2023 Snoring; Note: Date Diagnosed : 04/04/2023 8:51 AM (R06.83) Not Available [facility] 4 03:10:03 Obesity 735660444 Active 2023 Other obesity; Note: Date Diagnosed : 04/04/2023 8:51 AM (E66.8) Not Available [facility] 4 03:10:04 Tinnitus of vascular origin 531639557 Active 2023 Pulsatile tinnitus, right ear; Note: Date Diagnosed : 04/04/2023 8:49 AM (H93.A1) Not Available [facility] 4 03:10:04 Sensorine ural hearing loss 94990664 Active 2023 Sensorine ural hearing loss, unilatera l, right ear, with unrestric jaswant hearing on the contralat eral side; Note: Date Diagnosed : 04/04/2023 9:26 AM (H90.41) Not Available [facility] 4 03:10:05 Abnormal auditory perceptio n 48248438 Active 2023 JOSE VELÁZQUEZ MD [facility] [address], [place], [address] , [facility] 4 21:49:47 Subjectiv e pulsatile tinnitus of right ear [id number] 83418 Active 2023 JOSE VELÁZQUEZ MD 100 [facility],[place] [address], [place], [address] , [facility] - [facility] 4 21:53:02 Abnormal auditory perceptio n 19229105 Active 2023 JOSE VELÁZQUEZ MD 100 [facility],[place] [address], [place], [address] , [facility] - [facility] 4 09:14:23 Non-aller gic rhinitis 54654893105 1 Active 2023 Oh hernández [place] - [facility] 4 12:14:47 Seasonal allergic rhinitis 077604655 Active 2023 Oh [place] - [facility] 4 12:14:47 Chronic sinusitis 88001758 Active 2023 [place] - [facility] 4 12:16:47 Polyp of nasal cavity 945375000 Active 2023 [place] - [facility] 4 12:17:03 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 Procedures Surgical History Date Name Laterality Status Provider Name and Address Organization Details Recorded Time 03/08/19 25 Allergy Immunotherapy Injections completed SCOTTY GUTHRIE 100 [facility],[address], [address], [place] - [facility] 03/08/2024 12:13:50 03/01/20 24 Allergy Immunotherapy Injections completed JUAQUIN YAÑEZ RN 100 [facility],[address], [address], [facility] - [facility] 03/01/2024 09:38:10 02/23/20 24 Allergy Immunotherapy Injections completed JUAQUIN YAÑEZ RN [address],[place], [place], [address], [place] [facility] 02/23/2024 10:01:24 02/14/20 24 Allergy Immunotherapy Injections completed KEN CARDENAS, SCOTTY [address],[place] [address], [address], [place] [facility] 02/14/2024 11:05:56 02/07/20 24 Allergy Immunotherapy Injections completed JUAQUIN YAÑEZ RN [address] [facility] [address],[place] [address], [place], [address], [place] [facility] 02/07/2024 10:14:23 02/03/20 24 Allergy Immunotherapy Injections completed SCOTTY RICE [address] [facility] [address],[place] [address] [place] [address], [address], [place] [facility] 02/03/2024 09:34:55 01/24/20 24 Allergy Immunotherapy Injections completed JUAQUIN YAÑEZ RN [address] [facility] [address],[place] [address] [place] [address], [address], [place] [facility] 01/24/2024 10:50:50 01/19/20 24 Allergy Immunotherapy Injections completed SCOTTY RICE [address] [facility] [address],[place] [address] [place] [address], [address], [place] [facility] 01/19/2024 13:18:23 01/10/20 24 Allergy Immunotherapy Injections completed SCOTTY RICE [address] [facility] [address],[place] [address] [place] [address], [address], [place] [facility] 01/10/2024 09:42:22 01/03/20 24 Allergy Immunotherapy Injections completed JUAQUIN YAÑEZ RN [address] [facility] [address],[place] [address] [place] [address], [address], [place] [facility] 01/03/2024 11:08:00 12/29/19 24 Allergy Immunotherapy Injections completed SCOTTY RICE [address] [facility] [address],[place] [address] [place] [address], [address], [place] [facility] 12/29/2023 09:38:54 12/21/19 24 Allergy Immunotherapy Injections completed KEN CARDENAS, RMA [address],[place] [address], [place], [address], [place] [facility] 12/21/2023 11:30:52 12/14/19 24 Allergy Immunotherapy Injections completed JUAQUIN YAÑEZ RN [address] [facility] [address],[place] [address], [place], [address], [place] [facility] 12/14/2023 11:25:12 11/23/19 24 Allergy Immunotherapy Injections completed KEN CARDENAS, RMA [address] [facility] [address],[place] [address], [place], [address], [place] [facility] 11/23/2023 10:31:13 11/17/19 24 Allergy Immunotherapy Injections completed KEN CARDENAS, A [facility],[place] [address] [place] [address], [address], [place] [facility] 11/17/2023 09:42:16 11/09/19 24 Allergy Immunotherapy Injections completed JUAQUIN YAÑEZ RN [facility],[place] [address] [place] [address], [address], [place] [facility] 11/09/2023 11:29:05 11/01/19 24 Allergy Immunotherapy Injections completed JUAQUIN YAÑEZ RN 100 [facility],[address], [address], [place] [facility] 11/01/2023 10:43:38 10/27/19 24 Allergy Immunotherapy Injections completed KEN CARDENAS, [facility] 100 [facility],[place] [address] [place] [address], [address], [place] [facility] 10/27/2023 11:59:30 10/19/19 24 Allergy Immunotherapy Injections completed JUAQUIN YAÑEZ RN 100 [facility],[place] [address] [place] [address], [address], [place] [facility] 10/19/2023 10:27:27 10/19/19 24 Air & Speech Audio with Tymps (28756, 64792 & 70405) completed DARRIUS OSMAN MA, CCC-A [address] [facility],[place] [address], [place], [address], [place] [facility] 10/19/2023 09:45:15 10/11/19 24 Allergy Immunotherapy Injections completed SCOTTY RICE [address],[place] [address], [address], [place] [facility] 10/11/2023 09:44:13 10/04/19 24 Allergy Immunotherapy Injections completed KEN CARDENAS RMKendell [address],[place] [address], [place], [address], [place] [facility] 10/04/2023 12:12:37 09/27/19 24 Allergy Immunotherapy Injections completed JUAQUIN YAÑEZ RN [address] [facility] [address],[place] [address] [place] [address], [address], [place] [facility] 09/27/2023 10:51:29 09/20/19 24 Allergy Immunotherapy Injections completed JUAQUIN YAÑEZ RN [address] [facility] [address],[place] [address] [place] [address], [address], [place] [facility] 09/20/2023 10:20:29 09/13/19 24 Allergy Immunotherapy Injections completed SCOTTY RICE [address],[place] [address] [place] [address], [address], [place] [facility] 09/13/2023 12:56:00 09/05/19 24 Allergy Immunotherapy Injections completed JUAQUIN YAÑEZ RN [address] [facility] [address],[place] [address] [place] [address], [address], [place] [facility] 09/05/2023 09:56:55 08/31/19 24 Allergy Immunotherapy Injections completed SCOTTY RICE [address],[place] [address], [place], [address], [place] [facility] 08/31/2023 09:14:03 08/23/19 24 Allergy Immunotherapy Injections completed KEN CARDENAS RMA [address],[place] [address], [address], [place] [facility] 08/23/2023 09:35:11 08/17/19 24 Allergy Immunotherapy Injections completed KEN CARDENAS RMA [address],[place] [address], [address], [facility] - [facility] 08/17/2023 10:13:24 08/10/19 24 Allergy Immunotherapy Injections completed KEN AGRAWALC, RMA 100 [facility],[address], [address], [facility] - [facility] 08/10/2023 11:14:06 08/03/19 24 Allergy Immunotherapy Injections completed JUAQUIN YAÑEZ RN 100 [facility],[address], [address], [facility] - [facility] 08/03/2023 10:25:33 07/27/19 24 Allergy Immunotherapy Injections completed KEN NGHIA, RM 100 [facility],[address], [address], [facility] - [facility] 07/27/2023 10:39:49 07/21/19 24 Allergy Immunotherapy Injections completed [facility], [facility] 100 [facility],[address], [address], [facility] 07/21/2023 10:29:54 Imaging Results None recorded. Procedure Notes None recorded. Medical Equipment None Reported. Allergies Allergen ID Allergen Name Allergen Category Reaction Reaction Severity Criticality Documentation Date Start Date Code Code System Note Provider Name and Address Organization Details Recorded Time [id number] oxycodone medicatio n Not available Not available Not available 07/19/2023 7804 RxNorm React ion: Dizzi ness, Abdom inal pain, Weakn ess; Not Available Replaced by [facility] 4 01:20:52 667106 lactose Not available diarrhea Not available Not available 07/19/2023 6211 RxNorm React ion: Diarr hea; Not Available Replaced by [facility] 4 01:20:53 Medications Name Sig Start Date [...] mg tablet 09/08 completed Medicati on ID: [id number] B rand Name: dwight hill Send Method: [...] a day 2023 active Medicati on ID: 207632 D uration Value: 30 Prescri bed By [...] Multi-Vit schaefer tablet active Medicati on ID: 560891 B rand Name: Daily Multi-Vi tamin Se [...] capsule, extended release active Medicati on ID: 905096 B rand Name: Qsymia S end Method: [...] (7) tablet 09/08 completed Medicati on ID: 037534 B rand Name: Jenise [birth year]) Sen [...] Diagnosis/Indication Diagnosis SNOMED-CT Code Diagnosis ICD10 Code [id number] VALORIE LUCIO [facility] Allergy [address] [place] [address],[place] 100 [place] [address] 12/29/2023 09:38:10 12/29/2023 09:40:16 Perennial allergic rhinitis 444685280 J30.89 [id number] JUAQUIN YAÑEZ RN Allergy [address] [place] [address] it 100 [place] [address] 01/03/2024 11:06:53 01/03/2024 11:08:17 Perennial allergic rhinitis 540495397 J30.89 [id number] VALORIE LUCIO [facility] Allergy [address] [place] [address] ite 100 [place] [address] 01/10/2024 09:41:40 01/10/2024 09:42:52 Perennial allergic rhinitis 667564842 J30.89 [id number] VALORIE LUCIO [facility] Allergy [address] [place] [address] ite 100 [place] [address] 01/19/2024 13:16:02 01/19/2024 13:20:09 Perennial allergic rhinitis 136167953 J30.89 [id number] JUAQUIN YAÑEZ RN Allergy [address] [place] [address] ite 100 [place] [address] 01/24/2024 10:49:50 01/24/2024 10:52:32 Perennial allergic rhinitis 557222875 J30.89 Health Concerns Section Related Observation LastModified by Organization Detai ls LastModified Time None Recorded Concern Status LastModified by Organization Details LastModified Time None Recorded Payers Encounter Date Sequence Insurance Name Policy Number Policy Roche Covered Member ID Roche Member ID Guarantor Name 01/24/2024 1 KETAN: [facility] [id number] Shelia Fitzgerald [id number] Shelia Fitzgerald [employer] Episode No OBEpisode recorded.
--- OUTSIDE RECORDS SUMMARY | 2024-03-09 16:01 | XMS_ITS | Continuity of Care Document ---
Author Organization [place] [facility], Allergy Address [address] [address] Assessment Encounter Date Assessment Date Assessment LastModified by Organization Details LastModified Time 02/23/2024 02/23/2024 Administered By: Juaquin Yañez RN Use of Antihistamines: No If yes: Vial Test Change in medications: No If yes ?? Increase in asthma symptoms No Asthma Hx If yes, inhaler use: Reaction to last injections: No If yes: ?? Allergy Symptoms: Other: ?? Missed 1 week Dose Notes:?? [email or web address] Not available 02/23/2024 10:01:33 Plan of Treatment Reminders Order Date Submit Date Provider Last Modified By Organization Details Last Modified Time Details Appointments [facility]- Allergy f-up 6mon 2024 09:30A M JOSE [...] Organization Details Recorded Time Achalasia of esophagus 44352449 Active 2022 Achalasia NOS; Note: Date Diagnosed : 06/23/2022 2:49 PM (K22.0) Not Available [facility] 4 03:10:05 Respirato ry finding 907015546 Active 2022 Feeling of foreign body in throat; Note: Date Diagnosed : 06/23/2022 2:49 PM (R09.89) Not Available [facility] 4 03:10:05 Cardiovas cular finding 274251770 Active 2022 Feeling of foreign body in throat; Note: Date Diagnosed : 06/23/2022 2:49 PM (R09.89) Not Available [facility] 4 03:10:05 Posterior rhinorrhe a 25828066 Active 2022 Postnasal drip; Note: Date Diagnosed : 06/23/2022 2:49 PM (R09.82) Not Available [facility] 4 03:10:04 Allergic rhinitis 38077615 Active 2023 Allergic rhinitis: Due to other [...] Note: Date Diagnosed : 10/16/19 Not Available [facility] 4 01:25:32 Deviated nasal septum 542700069 Active 2022 Deviated nasal septum; Note: Date Diagnosed : 06/23/2022 2:49 PM (J34.2) Not Available [facility] 4 03:10:04 Perennial allergic rhinitis 771264206 Active 2023 KEN CARDENAS, A 100 [facility] 100, [place], [address] , [place] [facility] 4 10:29:26 Snoring 86843952 Active 2023 Snoring; Note: Date Diagnosed : 04/04/2023 8:51 AM (R06.83) Not Available [facility] 4 03:10:03 Obesity 573228022 Active 2023 Other obesity; Note: Date Diagnosed : 04/04/2023 8:51 AM (E66.8) Not Available [facility] 4 03:10:04 Tinnitus of vascular origin 868902941 Active 2023 Pulsatile tinnitus, right ear; Note: Date Diagnosed : 04/04/2023 8:49 AM (H93.A1) Not Available [facility] 4 03:10:04 Sensorine ural hearing loss 98062203 Active 2023 Sensorine ural hearing loss, unilatera l, right ear, with unrestric jaswant hearing on the contralat eral side; Note: Date Diagnosed : 04/04/2023 9:26 AM (H90.41) Not Available [facility] 4 03:10:05 Abnormal auditory perceptio n 61500761 Active 2023 JOSE VELÁZQUEZ MD 100 [facility],[place] [address], [place], [address] , [facility] 4 21:49:47 Subjectiv e pulsatile tinnitus of right ear [id number] 36005 Active 2023 JOSE VELÁZQUEZ MD 100 [facility],[place] [address], [place], [address] , [facility] 4 21:53:02 Abnormal auditory perceptio n 38112085 Active 2023 JOSE VELÁZQUEZ MD 100 [facility],[place] [address], [place], [address] , [facility] - [facility] 4 09:14:23 Non-aller gic rhinitis 11532596367 1 Active 2023 Oh hernández [place] - [facility] 4 12:14:47 Seasonal allergic rhinitis 285514310 Active 2023 Oh hernández [place] [facility] 4 12:14:47 Chronic sinusitis 30594377 Active 2023 Oh hernández [place] [facility] 4 12:16:47 Polyp of nasal cavity 317945946 Active 2023 Oh hern[place] [facility] 4 12:17:03 Polypoid sinus degenerat ion 64436111 Active 2023 Oh hernández [place] [facility] 4 12:17:03 Problem Notes None recorded. Procedures Surgical History Date Name Laterality Status Provider Name and Address Organization Details Recorded Time 03/08/19 25 Allergy Immunotherapy Injections completed SCOTTY GUTHRIE 100 [facility],[address], [address], [place] [facility] 03/08/2024 12:13:50 03/01/20 24 Allergy Immunotherapy Injections completed JUAQUIN YAÑEZ RN 100 [facility],[place] [address], [place], [address], [facility] 03/01/2024 09:38:10 02/23/20 24 Allergy Immunotherapy Injections completed JUAQUIN YAÑEZ RN [address],[place] [address], [place], [address], [place] [facility] 02/23/2024 10:01:24 02/14/20 24 Allergy Immunotherapy Injections completed SOCTTY GUTHRIE [address],[place] [address], [place], [address], [place] [facility] 02/14/2024 11:05:56 02/07/20 24 Allergy Immunotherapy Injections completed JUAQUIN YAÑEZ RN [address] [facility] [address],[place] [address], [place], [address], [place] [facility] 02/07/2024 10:14:23 02/03/20 24 Allergy Immunotherapy Injections completed SCOTTY RICE [address] [facility] [address],[place] [address] [place] [address], [address], [place] [facility] 02/03/2024 09:34:55 01/24/20 24 Allergy Immunotherapy Injections completed JUAQUIN YAÑEZ RN [address] [facility] [address],[place] [address] [place] [address], [address], [place] [facility] 01/24/2024 10:50:50 01/19/20 24 Allergy Immunotherapy Injections completed SCOTTY RICE [address] [facility] [address],[place] [address] [place] [address], [address], [place] [facility] 01/19/2024 13:18:23 01/10/20 24 Allergy Immunotherapy Injections completed SCOTTY RICE [address] [facility] [address],[place] [address] [place] [address], [address], [place] [facility] 01/10/2024 09:42:22 01/03/20 24 Allergy Immunotherapy Injections completed JUAQUIN YAÑEZ RN [address] [facility] [address],[place] [address] [place] [address], [address], [place] [facility] 01/03/2024 11:08:00 12/29/19 24 Allergy Immunotherapy Injections completed SCOTTY RICE [address] [facility] [address],[place] [address], [place], [address], [place] [facility] 12/29/2023 09:38:54 12/21/19 24 Allergy Immunotherapy Injections completed KEN CARDENAS, RMA [address],[place] [address], [place], [address], [place] [facility] 12/21/2023 11:30:52 12/14/19 24 Allergy Immunotherapy Injections completed JUAQUIN YAÑEZ RN [address] [facility] [address],[place] [address], [place], [address], [place] [facility] 12/14/2023 11:25:12 11/23/19 24 Allergy Immunotherapy Injections completed KEN CARDENAS, RMA [address] [facility] [address],[place] [address], [place], [address], [place] [facility] 11/23/2023 10:31:13 11/17/19 24 Allergy Immunotherapy Injections completed KEN CARDENAS, RMA 100 [facility],[place] [address] [place] [address], [address], [place] [facility] 11/17/2023 09:42:16 11/09/19 24 Allergy Immunotherapy Injections completed JUAQUIN YAÑEZ RN 100 [facility],[address], [address], [place] [facility] 11/09/2023 11:29:05 11/01/19 24 Allergy Immunotherapy Injections completed JUAQUIN YAÑEZ RN 100 [facility],[address], [address], [place] [facility] 11/01/2023 10:43:38 10/27/19 24 Allergy Immunotherapy Injections completed KEN CARDENAS, [facility] 100 [facility],[place] [address] [place] [address], [address], [place] [facility] 10/27/2023 11:59:30 10/19/19 24 Allergy Immunotherapy Injections completed JUAQUIN YAÑEZ RN 100 [facility],[place] [address] [place] [address], [address], [place] [facility] 10/19/2023 10:27:27 10/19/19 24 Air & Speech Audio with Tymps (69136, 99261 & 24653) completed DARRIUS OSMAN MA, CCC-A 100 [facility],[place] [address] [place] [address], [address], [place] [facility] 10/19/2023 09:45:15 10/11/19 24 Allergy Immunotherapy Injections completed SCOTTY RICE [address],[place] [address], [place], [address], [place] [facility] 10/11/2023 09:44:13 10/04/19 24 Allergy Immunotherapy Injections completed KEN CARDENAS RMKendell [address],[place] [address], [place], [address], [place] [facility] 10/04/2023 12:12:37 09/27/19 24 Allergy Immunotherapy Injections completed JUAQUIN YAÑEZ RN [address] [facility] [address],[place] [address], [place], [address], [place] [facility] 09/27/2023 10:51:29 09/20/19 24 Allergy Immunotherapy Injections completed JUAQUIN YAÑEZ RN [address] [facility] [address] [address],[place] [address] [place] [address], [address], [place] [facility] 09/20/2023 10:20:29 09/13/19 24 Allergy Immunotherapy Injections completed SCOTTY RICE [address],[place] [address] [place] [address], [address], [place] [facility] 09/13/2023 12:56:00 09/05/19 24 Allergy Immunotherapy Injections completed JUAQUIN YAÑEZ RN [address] [facility] [address],[place] [address] [place] [address], [address], [place] [facility] 09/05/2023 09:56:55 08/31/19 24 Allergy Immunotherapy Injections completed SCOTTY RICE [address],[place] [address], [place], [address], [place] [facility] 08/31/2023 09:14:03 08/23/19 24 Allergy Immunotherapy Injections completed KEN CARDENAS RMA [address],[place] [address], [place], [address], [place] [facility] 08/23/2023 09:35:11 08/17/19 24 Allergy Immunotherapy Injections completed KEN CARDENAS RMA [address],[place] [address], [place], [address], [facility] 08/17/2023 10:13:24 08/10/19 24 Allergy Immunotherapy Injections completed KEN AGRAWALC, RMA 100 [facility],[address], [address], [facility] - [facility] 08/10/2023 11:14:06 08/03/19 24 Allergy Immunotherapy Injections completed JUAQUIN YAÑEZ RN 100 [facility],[address], [address], [facility] - [facility] 08/03/2023 10:25:33 07/27/19 24 Allergy Immunotherapy Injections completed KEN NGHIA, RMA 100 [facility],[address], [address], [facility] - [facility] 07/27/2023 10:39:49 07/21/19 24 Allergy Immunotherapy Injections completed [facility], [facility] 100 [facility],[address], [address], [facility] 07/21/2023 10:29:54 Imaging Results None recorded. Procedure Notes None recorded. Medical Equipment None Reported. Allergies Allergen ID Allergen Name Allergen Category Reaction Reaction Severity Criticality Documentation Date Start Date Code Code System Note Provider Name and Address Organization Details Recorded Time 049070 oxycodone medicatio n Not available Not available Not available 07/19/2023 7804 RxNorm React ion: Dizzi ness, Abdom inal pain, Weakn ess; Not Available [facility] 4 01:20:52 555201 lactose Not available diarrhea Not available Not available 07/19/2023 6211 RxNorm React ion: Diarr hea; Not Available [facility] 4 01:20:53 Medications Name Sig Start Date [...] mg tablet 09/08 completed Medicati on ID: 532007 B rand Name: dwight hill Send Method: [...] a day 2023 active Medicati on ID: 318254 D uration Value: 30 Pres[address] bed By [...] Multi-Vit schaefer tablet active Medicati on ID: 806489 B rand Name: Daily Multi-Vi tamin Se [...] capsule, extended release active Medicati on ID: 906226 B rand Name: Qsymia S end Method: [...] (7) tablet 09/08 completed Medicati on ID: [id number] B rand Name: Jenise Fe 03/26 (28) Sen d Method: E-Prescr ibed [...] Diagnosis/Indication Diagnosis SNOMED-CT Code Diagnosis ICD10 Code 04033 JUAQUIN YAÑEZ RN Allergy [address] [place] [address],[place] 100 [place] [address] 01/24/2024 10:49:50 01/24/2024 10:52:32 Perennial allergic rhinitis 252812198 J30.89 [id number] VALORIE LUCIO [facility] Allergy [address] [place] [address],[place] 100 [facility] [place] [address] 02/03/2024 09:25:49 02/03/2024 09:35:31 Perennial allergic rhinitis 881420183 J30.89 [id number] JUAQUIN YAÑEZ RN Allergy [address] [place] [address],[place] 100 [place] [address] 02/07/2024 10:13:39 02/07/2024 10:14:50 Perennial allergic rhinitis 211441138 J30.89 18982 [facility], [facility] Allergy 100 [facility],[place] 100 [facility] [place] [address] 02/14/2024 11:05:15 02/14/2024 11:06:25 Perennial allergic rhinitis 445325010 J30.89 17581 JUAQUIN YAÑEZ RN Allergy [address] [place] [address],[place] 100 [place] [address] 02/23/2024 10:00:14 02/23/2024 10:01:52 Perennial allergic rhinitis 176207166 J30.89 Health Concerns Section Related Observation LastModified by Organization Detai ls LastModified Time None Recorded Concern Status LastModified by Organization Details LastModified Time None Recorded Payers Encounter Date Sequence Insurance Name Policy Number Policy Roche Covered Member ID Roche Member ID Guarantor Name 02/23/2024 1 KETAN: [facility] [id number] Shelia Fitzgerald [id number] Shelia Fitzgerald OBDeepali Episode No OBEpisode recorded.
--- OUTSIDE RECORDS SUMMARY | 2024-03-09 16:01 | XMS_ITS | Continuity of Care Document ---
Author Organization [place] - [facility], Allergy Address [address] [address] Assessment Encounter Date Assessment Date Assessment LastModified by Organization Details LastModified Time 01/19/2024 01/19/2024 Administered By: Kiah Sales Use of Antihistamines: No If yes: Vial Test Change in medications: Yes If yes ??[id number] mg Increase in asthma symptoms If yes, inhaler use: Reaction to last injections: No If yes: ?? Allergy Symptoms: Other: ?? Missed 1 week Dose Notes:?? [email or web address] Not available 01/19/2024 13:19:36 Plan of Treatment Reminders Order Date Submit Date Provider Last Modified By Organization Details Last Modified Time Details Appointments [facility]- Allergy f-up 6mon 2024 09:30A M [...] Organization Details Recorded Time Achalasia of esophagus 03062558 Active 2022 Achalasia NOS; Note: Date Diagnosed : 06/23/2022 2:49 PM (K22.0) Not Available [facility] 4 03:10:05 Respirato ry finding 520860407 Active 2022 Feeling of foreign body in throat; Note: Date Diagnosed : 06/23/2022 2:49 PM (R09.89) Not Available [facility] 4 03:10:05 Cardiovas cular finding 597846440 Active 2022 Feeling of foreign body in throat; Note: Date Diagnosed : 06/23/2022 2:49 PM (R09.89) Not Available [facility] 4 03:10:05 Posterior rhinorrhe a 85399642 Active 2022 Postnasal drip; Note: Date Diagnosed : 06/23/2022 2:49 PM (R09.82) Not Available [facility] 4 03:10:04 Allergic rhinitis 84080827 Active 2023 Allergic rhinitis: Due to other [...] Note: Date Diagnosed : 10/16/19 Not Available [facility] 4 01:25:32 Deviated nasal septum 822097505 Active 2022 Deviated nasal septum; Note: Date Diagnosed : 06/23/2022 2:49 PM (J34.2) Not Available [facility] 4 03:10:04 Perennial allergic rhinitis 235836829 Active 2023 KEN CARDENAS, A 100 [facility] 100, [place], [address] , [place] - [facility] 4 10:29:26 Snoring 37435390 Active 2023 Snoring; Note: Date Diagnosed : 04/04/2023 8:51 AM (R06.83) Not Available [facility] 4 03:10:03 Obesity 271407743 Active 2023 Other obesity; Note: Date Diagnosed : 04/04/2023 8:51 AM (E66.8) Not Available [facility] 4 03:10:04 Tinnitus of vascular origin 013990066 Active 2023 Pulsatile tinnitus, right ear; Note: Date Diagnosed : 04/04/2023 8:49 AM (H93.A1) Not Available [facility] 4 03:10:04 Sensorine ural hearing loss 01635231 Active 2023 Sensorine ural hearing loss, unilatera l, right ear, with unrestric jaswant hearing on the contralat eral side; Note: Date Diagnosed : 04/04/2023 9:26 AM (H90.41) Not Available Critical [facility] hospital 4 03:10:05 Abnormal auditory perceptio n 15781815 Active 2023 JOSE VELÁZQUEZ MD 100 [facility],[address] [address], [place], [address] , [facility] - [facility] 4 21:49:47 Subjectiv e pulsatile tinnitus of right ear [id number] 58016 Active 2023 JOSE VELÁZQUEZ MD 100 [facility],[place] [address], [place], [address] , [facility] - [facility] 4 21:53:02 Abnormal auditory perceptio n 81524395 Active 2023 JOSE VELÁZQUEZ MD 100 [facility],[place] [address], [place], [address] , 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 Procedures Surgical History Date Name Laterality Status Provider Name and Address Organization Details Recorded Time 03/08/19 25 Allergy Immunotherapy Injections completed SCOTTY GUTHRIE 100 [facility],[address], [address], [place] - [facility] 03/08/2024 12:13:50 03/01/20 24 Allergy Immunotherapy Injections completed JUAQUIN YAÑEZ RN 100 [facility] [address], [place], [address], [facility] - [facility] 03/01/2024 09:38:10 02/23/20 24 Allergy Immunotherapy Injections completed JUAQUIN YAÑEZ RN [address],[place] [address], [address], [place] [facility] 02/23/2024 10:01:24 02/14/20 24 Allergy Immunotherapy Injections completed SCOTTY GUTHRIE [address],[place] [address], [address], [place] [facility] 02/14/2024 11:05:56 02/07/20 24 Allergy Immunotherapy Injections completed JUAQUIN YAÑEZ RN [address],[place] [address], [address], [place] [facility] 02/07/2024 10:14:23 02/03/20 24 Allergy Immunotherapy Injections completed SCOTTY RICE [address],[place] [address] [place] [address], [address], [place] [facility] 02/03/2024 09:34:55 01/24/20 24 Allergy Immunotherapy Injections completed JUAQUIN YAÑEZ RN [address] [facility] [address],[place] [address] [place] [address], [address], [place] [facility] 01/24/2024 10:50:50 01/19/20 24 Allergy Immunotherapy Injections completed SCOTTY RICE [address],[place] [address] [place] [address], [address], [place] [facility] 01/19/2024 13:18:23 01/10/20 24 Allergy Immunotherapy Injections completed SCOTTY RICE [address] [facility],[place] [address] [place] [address], [address], [place] [facility] 01/10/2024 09:42:22 01/03/20 24 Allergy Immunotherapy Injections completed JUAQUIN YAÑEZ RN [address] [facility] [address],[place] [address] [place] [address], [address], [place] [facility] 01/03/2024 11:08:00 12/29/19 24 Allergy Immunotherapy Injections completed SCOTTY RICE [address] [facility],[place] [address], [address], [place] [facility] 12/29/2023 09:38:54 12/21/19 24 Allergy Immunotherapy Injections completed KEN CARDENAS, RMA [address], [place], [address], [place] [facility] 12/21/2023 11:30:52 12/14/19 24 Allergy Immunotherapy Injections completed JUAQUIN YAÑEZ RN [address] [facility], [place], [address], [place] [facility] 12/14/2023 11:25:12 11/23/19 24 Allergy Immunotherapy Injections completed KEN CARDENAS, RMA [address] [facility] [address], [place], [address], [place] [facility] 11/23/2023 10:31:13 11/17/19 24 Allergy Immunotherapy Injections completed KEN CARDENAS, RMA [address] [facility] [place],[place] [address] [place] [address], [address], [place] [facility] 11/17/2023 09:42:16 11/09/19 24 Allergy Immunotherapy Injections completed JUAQUIN YAÑEZ RN 100 [facility],[address], [address], [place] [facility] 11/09/2023 11:29:05 11/01/19 24 Allergy Immunotherapy Injections completed JUAQUIN YAÑEZ RN 100 [facility],[address], [address], [place] [facility] 11/01/2023 10:43:38 10/27/19 24 Allergy Immunotherapy Injections completed KEN CARDENAS, [facility],[place] [address] [place] [address], [address], [place] [facility] 10/27/2023 11:59:30 10/19/19 24 Allergy Immunotherapy Injections completed JUAQUIN YAÑEZ RN 100 [facility],[place] [address] [place] [address], [address], [place] [facility] 10/19/2023 10:27:27 10/19/19 24 Air & Speech Audio with Tymps ([id number], [id number] & [id number]) completed DARRIUS OSMAN MA, CCC-A [address] [facility] [place] [address] [place] [address], [address], [place] [facility] 10/19/2023 09:45:15 10/11/19 24 Allergy Immunotherapy Injections completed SCOTTY RICE [address],[place] [address], [address], [place] [facility] 10/11/2023 09:44:13 10/04/19 24 Allergy Immunotherapy Injections completed KEN CARDENAS RMKendell [address],[place] [address], [address], [place] [facility] 10/04/2023 12:12:37 09/27/19 24 Allergy Immunotherapy Injections completed JUAQUIN YAÑEZ RN [address] [facility] [address],[place] [address], [place], [address], [place] [facility] 09/27/2023 10:51:29 09/20/19 24 Allergy Immunotherapy Injections completed JUAQUIN YAÑEZ RN [address] [facility] [address],[place] [address] [place] [address], [address], [place] [facility] 09/20/2023 10:20:29 09/13/19 24 Allergy Immunotherapy Injections completed SCOTTY RICE [address],[place] [address] [place] [address], [address], [place] [facility] 09/13/2023 12:56:00 09/05/19 24 Allergy Immunotherapy Injections completed JUAQUIN YAÑEZ RN [address] [facility] [address],[place] [address] [place] [address], [address], [place] [facility] 09/05/2023 09:56:55 08/31/19 24 Allergy Immunotherapy Injections completed SCOTTY RICE [address],[place] [address], [address], [place] [facility] 08/31/2023 09:14:03 08/23/19 24 Allergy Immunotherapy Injections completed KEN CARDENAS RMA [address],[place] [address], [address], [place] [facility] 08/23/2023 09:35:11 08/17/19 24 Allergy Immunotherapy Injections completed KEN CARDENAS RMA [address],[place] [address], [address], [facility] - [facility] 08/17/2023 10:13:24 08/10/19 24 Allergy Immunotherapy Injections completed KEN AGRAWALC, RMA 100 [facility],[address], [address], [facility] - [facility] 08/10/2023 11:14:06 08/03/19 24 Allergy Immunotherapy Injections completed JUAQUIN YAÑEZ RN 100 [facility],[address], [address], [facility] - [facility] 08/03/2023 10:25:33 07/27/19 24 Allergy Immunotherapy Injections completed KEN NGHIA, RMA 100 [facility],[address], [address], [facility] - [facility] 07/27/2023 10:39:49 07/21/19 24 Allergy Immunotherapy Injections completed [facility], [facility] 100 [facility],[address], [address], [facility] 07/21/2023 10:29:54 Imaging Results None recorded. Procedure Notes None recorded. Medical Equipment None Reported. Allergies Allergen ID Allergen Name Allergen Category Reaction Reaction Severity Criticality Documentation Date Start Date Code Code System Note Provider Name and Address Organization Details Recorded Time 319509 oxycodone medicatio n Not available Not available Not available 07/19/2023 7804 RxNorm React ion: Dizzi ness, Abdom inal pain, Weakn ess; Not Available [facility] 4 01:20:52 [id number] lactose Not available diarrhea Not available Not available 07/19/2023 6211 RxNorm React ion: Diarr hea; Not Available [facility] 4 01:20:53 Medications Name Sig Start Date [...] mg tablet 09/08 completed Medicati on ID: [id number] B rand Name: dwight hill Send Method: [...] a day 2023 active Medicati on ID: 134553 D uration Value: 30 Pres[address] bed By [...] Multi-Vit schaefer tablet active Medicati on ID: 010504 B rand Name: Daily Multi-Vi tamin Se [...] capsule, extended release active Medicati on ID: 706205 B rand Name: Qsymia S end Method: [...] (7) tablet 09/08 completed Medicati on ID: 716350 B rand Name: Jenise Fe 03/26 (28) [...] Diagnosis/Indication Diagnosis SNOMED-CT Code Diagnosis ICD10 Code 17729 KEN AGRAWAL, A Allergy 100 [facility],[place] ite 100 [facility] [place] [address] 12/21/2023 11:30:12 12/21/2023 11:31:30 Perennial allergic rhinitis [id number] J30.89 49247 KIAH SALES [facility] Allergy [address] [place] [address] it 100 [facility] [place] [address] 12/29/2023 09:38:10 12/29/2023 09:40:16 Perennial allergic rhinitis 366406415 J30.89 33683 JUAQUIN YAÑEZ RN Allergy [address] [place] [address], ite 100 [facility] [place] [address] 01/03/2024 11:06:53 01/03/2024 11:08:17 Perennial allergic rhinitis 089120726 J30.89 19076 KIAH SALES [facility] Allergy [address] [place] [address] ite 100 [facility] [place] [address] 01/10/2024 09:41:40 01/10/2024 09:42:52 Perennial allergic rhinitis 979963163 J30.89 26781 KIAH SALES [facility] Allergy [address] [place] [address] it 100 [facility] [place] [address] 01/19/2024 13:16:02 01/19/2024 13:20:09 Perennial allergic rhinitis 996363656 J30.89 Health Concerns Section Related Observation LastModified by Organization Detai ls LastModified Time None Recorded Concern Status LastModified by Organization Details LastModified Time None Recorded Payers Encounter Date Sequence Insurance Name Policy Number Policy Roche Covered Member ID Roche Member ID Guarantor Name 01/19/2024 1 KETAN: [facility] [id number] Shelia Fitzgerald [id number] Shelia Fitzgerald OBDeepali Episode No OBEpisode recorded.
--- OUTSIDE RECORDS SUMMARY | 2024-03-09 16:01 | XMS_ITS | Continuity of Care Document ---
Author Organization [place] - [facility], Allergy Address [address] [address] Assessment Encounter Date Assessment Date Assessment LastModified by Organization Details LastModified Time 02/14/2024 02/14/2024 Administered By: Kiah Lucio Use of Antihistamines: No If yes: Vial Test Change in medications: No If yes ?? Increase in asthma symptoms If yes, inhaler use: Reaction to last injections: No If yes: ?? Allergy Symptoms: Other: ?? Missed 1 week Dose Notes:?? [email or web address] Not available 02/14/2024 11:06:02 Plan of Treatment Reminders Order Date Submit Date Provider Last Modified By Organization Details Last Modified Time Details Appointments [facility]- Allergy f-up 6mon 2024 09:30A M JOSE [...] Organization Details Recorded Time Achalasia of esophagus 39147155 Active 2022 Achalasia NOS; Note: Date Diagnosed : 06/23/2022 2:49 PM (K22.0) Not Available [facility] 4 03:10:05 Respirato ry finding 190042922 Active 2022 Feeling of foreign body in throat; Note: Date Diagnosed : 06/23/2022 2:49 PM (R09.89) Not Available [facility] 4 03:10:05 Cardiovas cular finding 291464756 Active 2022 Feeling of foreign body in throat; Note: Date Diagnosed : 06/23/2022 2:49 PM (R09.89) Not Available [facility] 4 03:10:05 Posterior rhinorrhe a 66800870 Active 2022 Postnasal drip; Note: Date Diagnosed : 06/23/2022 2:49 PM (R09.82) Not Available [facility] 4 03:10:04 Allergic rhinitis 19855455 Active 2023 Allergic rhinitis: Due to other [...] to other allergen; Note: Date Diagnosed : 9:49 AM (477.8) Note: Date Diagnosed : [...] Note: Date Diagnosed : 10/16/19 Not Available [facility] 4 01:25:32 Deviated nasal septum 826172813 Active 2022 Deviated nasal septum; Note: Date Diagnosed : 06/23/2022 2:49 PM (J34.2) Not Available [facility] 4 03:10:04 Perennial allergic rhinitis 495190796 Active 2023 KEN CARDENAS, [facility] 100 [facility] 100, [place], [address] , [place] - [facility] 4 10:29:26 Snoring 76953742 Active 2023 Snoring; Note: Date Diagnosed : 04/04/2023 8:51 AM (R06.83) Not Available [facility] 4 03:10:03 Obesity 596734979 Active 2023 Other obesity; Note: Date Diagnosed : 04/04/2023 8:51 AM (E66.8) Not Available [facility] 4 03:10:04 Tinnitus of vascular origin 731153805 Active 2023 Pulsatile tinnitus, right ear; Note: Date Diagnosed : 04/04/2023 8:49 AM (H93.A1) Not Available [facility] 4 03:10:04 Sensorine ural hearing loss 07254302 Active 2023 Sensorine ural hearing loss, unilatera l, right ear, with unrestric jaswant hearing on the contralat eral side; Note: Date Diagnosed : 04/04/2023 9:26 AM (H90.41) Not Available [facility] 4 03:10:05 Abnormal auditory perceptio n 91497444 Active 2023 JOSE VELÁZQUEZ MD 100 [facility],[place] [address], [place], [address] , [place] - [facility] 4 21:49:47 Subjectiv e pulsatile tinnitus of right ear [id number] 37732 Active 2023 JOSE VELÁZQUEZ MD 100 [facility],[place] [address], [place], [address] , [facility] - [facility] 4 21:53:02 Abnormal auditory perceptio n 27552952 Active 2023 JOSE VELÁZQUEZ MD 100 [facility],[place] [address], [place], [address] , [facility] - [facility] [place] 4 09:14:23 Non-aller gic rhinitis 81147225446 1 Active 2023 Oh hernández [place] - [facility] 4 12:14:47 Seasonal allergic rhinitis 491424086 Active 2023 Oh hernández [place] - [facility] 4 12:14:47 Chronic sinusitis 44351259 Active 2023 Oh hernández [place] - [facility] [place] 4 12:16:47 Polyp of nasal cavity 147363480 Active 2023 Oh hernández [place] - [facility] 4 12:17:03 Polypoid sinus degenerat ion 86686414 Active 2023 Oh hernández [place] - [facility] [place] 4 12:17:03 Problem Notes None recorded. Procedures Surgical History Date Name Laterality Status Provider Name and Address Organization Details Recorded Time 03/08/19 25 Allergy Immunotherapy Injections completed KEN CARDENAS [place] 100 [facility],[address], [address], [facility] - [facility] 03/08/2024 12:13:50 03/01/20 24 Allergy Immunotherapy Injections completed JUAQUIN YAÑEZ RN 100 [facility],[address], [address], [facility] - [facility] 03/01/2024 09:38:10 02/23/20 24 Allergy Immunotherapy Injections completed JUAQUIN YAÑEZ RN [address],[place] [address] [place] [address], [address], [place] - [facility] 02/23/2024 10:01:24 02/14/20 24 Allergy Immunotherapy Injections completed SCOTTY GUTHRIE [address] [facility],[place] [address], [place], [address], [place] [facility] 02/14/2024 11:05:56 02/07/20 24 Allergy Immunotherapy Injections completed JUAQUIN YAÑEZ RN [address] [facility] [address],[place] [address], [place], [address], [place] [facility] 02/07/2024 10:14:23 02/03/20 24 Allergy Immunotherapy Injections completed SCOTTY RICE [address] [facility] [address],[place] [address] [place] [address], [address], [place] [facility] 02/03/2024 09:34:55 01/24/20 24 Allergy Immunotherapy Injections completed JUAQUIN YAÑEZ RN [facility] [place] [address] [place] [address], [address], [place] [facility] 01/24/2024 10:50:50 01/19/20 24 Allergy Immunotherapy Injections completed SCOTTY RICE [address] [facility],[place] [address] [place] [address], [address], [place] [facility] 01/19/2024 13:18:23 01/10/20 24 Allergy Immunotherapy Injections completed SCOTTY RICE [facility] [place] [address] [place] [address], [address], [place] [facility] 01/10/2024 09:42:22 01/03/20 24 Allergy Immunotherapy Injections completed JUAQUIN YAÑEZ RN [address] [facility],[place] [address] [place] [address], [address], [place] [facility] 01/03/2024 11:08:00 12/29/19 24 Allergy Immunotherapy Injections completed SCOTTY RICE [address] [facility] [address],[place] [address], [place], [address], [place] [facility] 12/29/2023 09:38:54 12/21/19 24 Allergy Immunotherapy Injections completed KEN KORZEC, RMA [address] [address], [place], [address], [place] [facility] 12/21/2023 11:30:52 12/14/19 24 Allergy Immunotherapy Injections completed JUAQUIN YAÑEZ RN [address] [facility] [address],[place] [address], [place], [address], [place] [facility] 12/14/2023 11:25:12 11/23/19 24 Allergy Immunotherapy Injections completed KEN AGRAWAL, RMA [address] [facility] [address] [address], [place], [address], [place] [facility] 11/23/2023 10:31:13 11/17/19 24 Allergy Immunotherapy Injections completed KEN CARDENAS, A [facility] [place] [address] [place] [address], [address], [place] [facility] 11/17/2023 09:42:16 11/09/19 24 Allergy Immunotherapy Injections completed JUAQUIN YAÑEZ RN [facility] [place] [address] [place] [address], [address], [place] [facility] 11/09/2023 11:29:05 11/01/19 24 Allergy Immunotherapy Injections completed JUAQUIN YAÑEZ RN [facility] [place],[address], [address], [place] [facility] 11/01/2023 10:43:38 10/27/19 24 Allergy Immunotherapy Injections completed KEN CARDENAS, [place] [facility] [place] [address] [place] [address], [address], [facility] - [facility] 10/27/2023 11:59:30 10/19/19 24 Allergy Immunotherapy Injections completed JUAQUIN YAÑEZ RN [facility] [place] [address] [place] [address], [address], [place] [facility] 10/19/2023 10:27:27 10/19/19 24 Air & Speech Audio with Tymps (66549, 30655 & 18176) completed DARRIUS OSMAN [place], CCC-A [address] [place] [facility], [place], [address], [place] [facility] 10/19/2023 09:45:15 10/11/19 24 Allergy Immunotherapy Injections completed SCOTTY RICE [address],[place] [address], [place], [address], [place] [facility] 10/11/2023 09:44:13 10/04/19 24 Allergy Immunotherapy Injections completed KEN CARDENAS RMKendell [address],[place] [address], [place], [address], [place] [facility] 10/04/2023 12:12:37 09/27/19 24 Allergy Immunotherapy Injections completed JUAQUIN YAÑEZ RN [address] [facility],[place] [address] [place] [address], [address], [place] [facility] 09/27/2023 10:51:29 09/20/19 24 Allergy Immunotherapy Injections completed JUAQUIN YAÑEZ RN [address] [facility],[place] [facility], [place], [address], [place] [facility] 09/20/2023 10:20:29 09/13/19 24 Allergy Immunotherapy Injections completed SCOTTY RICE [address],[place] [facility], [place], [address], [place] [facility] 09/13/2023 12:56:00 09/05/19 24 Allergy Immunotherapy Injections completed JUAQUIN YAÑEZ RN [address] [facility],[place] [address] [place] [address], [address], [place] [facility] 09/05/2023 09:56:55 08/31/19 24 Allergy Immunotherapy Injections completed SCOTTY RICE [address] [facility],[place] [address], [address], [place] [facility] 08/31/2023 09:14:03 08/23/19 24 Allergy Immunotherapy Injections completed KEN CARDENAS RMA [address],[place] [address], [place], [address], [place] [facility] 08/23/2023 09:35:11 08/17/19 24 Allergy Immunotherapy Injections completed KEN CARDENAS RMKendell [address],[place] [address], [place], [address], [place] [facility] 08/17/2023 10:13:24 08/10/19 24 Allergy Immunotherapy Injections completed KEN NGHIAC, RMA [facility] [place],[address], [address], [facility] - [facility] 08/10/2023 11:14:06 08/03/19 24 Allergy Immunotherapy Injections completed JUAQUIN YAÑEZ RN 100 [facility],[address], [address], [facility] - [facility] 08/03/2023 10:25:33 07/27/19 24 Allergy Immunotherapy Injections completed KEN RASTAZEC, RMA 100 [facility],[address], [address], [facility] - [facility] 07/27/2023 10:39:49 07/21/19 24 Allergy Immunotherapy Injections completed [facility], RMA 100 [facility],[address], [address], [facility] 07/21/2023 10:29:54 Imaging Results None recorded. Procedure Notes None recorded. Medical Equipment None Reported. Allergies Allergen ID Allergen Name Allergen Category Reaction Reaction Severity Criticality Documentation Date Start Date Code Code System Note Provider Name and Address Organization Details Recorded Time [id number] oxycodone medicatio n Not available Not available Not available 07/19/2023 7804 RxNorm React ion: Dizzi ness, Abdom inal pain, Weakn ess; Not Available [facility] 4 01:20:52 324431 lactose Not available diarrhea Not available Not [...] mg tablet 09/08 completed Medicati on ID: [id number] B rand Name: dwight hill Send Method: [...] spray,allen pension 2 puff once a day 03/13/ 2024 active Medicati on ID: [id number] D uration Value: 30 Prescri bed By Name: Patrice Reyes nd Name: fluticas one propiona te Send Method: E-Prescr ibed Sub s Allowed: subs [place] [facility] fluticas one propiona te Not [...] Multi-Vit schaefer tablet active Medicati on ID: [id number] B rand Name: Daily Multi-Vi tamin Se [...] capsule, extended release active Medicati on ID: [id number] B rand Name: Qsymia S end Method: [...] (7) tablet 09/08 completed Medicati on ID: [id number] B rand Name: Jenise Fe [birth year]) Sen d Method: E-Prescr ibed Sub s Allowed: subs OK Medic ationGen ericName : Jenise Wright 03/26 (28) Not Available Not Available Not [...] Diagnosis/Indication Diagnosis SNOMED-CT Code Diagnosis ICD10 Code 87296 KIAH LUCIO [facility] Allergy [address] [facility] [address],[place] [address] [place] [address] 01/19/2024 13:16:02 01/19/2024 13:20:09 Perennial allergic rhinitis 286508203 J30.89 [id number] JUAQUIN YAÑEZ RN Allergy [address] [place] [address],[place] [address] [place] [address] 01/24/2024 10:49:50 01/24/2024 10:52:32 Perennial allergic rhinitis 400620788 J30.89 [id number] KIAH LUCIO [facility] Allergy [facility] [place] [place] [address] 02/03/2024 09:25:49 02/03/2024 09:35:31 Perennial allergic rhinitis 261042829 J30.89 [id number] JUAQUIN YAÑEZ RN Allergy [address] [place], [place] [address]on [place] [address] [place] [address] 02/07/2024 10:13:39 02/07/2024 10:14:50 Perennial allergic rhinitis 945754756 J30.89 24419 KEN NGHIA, [facility] Allergy [facility] [place] [address] [place] [address] 02/14/2024 11:05:15 02/14/2024 11:06:25 Perennial allergic rhinitis 824937694 J30.89 Health Concerns Section Related Observation LastModified by Organization Detai ls LastModified Time None Recorded Concern Status LastModified by Organization Details LastModified Time None Recorded Payers Encounter Date Sequence Insurance Name Policy Number Policy Roche Covered Member ID Roche Member ID Guarantor Name 02/14/2024 1 KETAN: [facility] [facility] [employer] [id number] Shelia Fitzgerald [id number] Shelia Reza Episode No OBEpisode recorded.
--- OUTSIDE RECORDS SUMMARY | 2024-03-09 16:02 | XMS_ITS | Continuity of Care Document ---
Author Organization [place] - [facility], Allergy Address [address] [address] Assessment Encounter Date Assessment Date Assessment LastModified by Organization Details LastModified Time 12/21/2023 12/21/2023 Administered By: Juaquin Yañez RN Use of Antihistamines: No If yes: Vial Test Change in medications: No If yes ?? Increase in asthma symptoms If yes, inhaler use: Reaction to last injections: No If yes: ?? Allergy Symptoms: Other: ?? Missed 1 week Dose Notes:?? [email or web address] Not available 12/21/2023 11:31:06 Plan of Treatment Reminders Order Date Submit Date Provider Last Modified By Organization Details Last Modified Time Details Appointments [facility]- Allergy f-up 6mon 2024 09:30A [...] observ ation record ed. CE [facility] [place] [address] [facility] [address], [place], [address], 12/15/2023 13:44:07 Result Notes None recorded. Problems Name Problem SNOMED Code Status Onset Date Resolution Date Notes Provider Name and Address Organization Details Recorded Time Achalasia of esophagus 77457703 Active 2022 Achalasia NOS; Note: Date Diagnosed : 06/23/2022 2:49 PM (K22.0) Not Available [facility] 4 03:10:05 Respirato ry finding 787237978 Active 2022 Feeling of foreign body in throat; Note: Date Diagnosed : 06/23/2022 2:49 PM (R09.89) Not Available [facility] 4 03:10:05 Cardiovas cular finding 989823451 Active 2022 Feeling of foreign body in throat; Note: Date Diagnosed : 06/23/2022 2:49 PM (R09.89) Not Available [facility] 4 03:10:05 Posterior rhinorrhe a 93523266 Active 2022 Postnasal drip; Note: Date Diagnosed : 06/23/2022 2:49 PM (R09.82) Not Available [facility] 4 03:10:04 Allergic rhinitis 68230006 Active 2023 Allergic rhinitis: Due to other [...] Note: Date Diagnosed : 10/16/19 Not Available [facility] 4 01:25:32 Deviated nasal septum 172019275 Active 2022 Deviated nasal septum; Note: Date Diagnosed : 06/23/2022 2:49 PM (J34.2) Not Available [facility] 4 03:10:04 Perennial allergic rhinitis 153221054 Active [address],[place] [address], [place], [address] , [facility] - [facility] 4 10:29:26 Snoring 36400535 Active 2023 Snoring; Note: Date Diagnosed : 04/04/2023 8:51 AM (R06.83) Not Available [facility] 4 03:10:03 Obesity 903353926 Active 2023 Other obesity; Note: Date Diagnosed : 04/04/2023 8:51 AM (E66.8) Not Available [facility] 4 03:10:04 Tinnitus of vascular origin 439814883 Active 2023 Pulsatile tinnitus, right ear; Note: Date Diagnosed : 04/04/2023 8:49 AM (H93.A1) Not Available [facility] 4 03:10:04 Sensorine ural hearing loss 20860373 Active 2023 Sensorine ural hearing loss, unilatera l, right ear, with unrestric jaswant hearing on the contralat eral side; Note: Date Diagnosed : 04/04/2023 9:26 AM (H90.41) Not Available [facility] 4 03:10:05 Abnormal auditory perceptio n 75845135 Active 2023 JOSE VELÁZQUEZ MD [address], [place], [address] , [place] - [facility] 4 21:49:47 Subjectiv e pulsatile tinnitus of right ear 91478549214 41540 Active 2023 JOSE VELÁZQUEZ MD [address], [place], [address] , [place] [facility] 4 21:53:02 Abnormal auditory perceptio n 86291052 Active 2023 JOSE VELÁZQUEZ MD [address] [facility] [place],[address], [place], [address] , [place] - [facility] 4 09:14:23 Non-aller gic rhinitis 19115596766 1 Active 2023 Oh hernández [place] - [facility] 4 12:14:47 Seasonal allergic rhinitis 858450639 Active 2023 Oh hernández [place] - [facility] 4 12:14:47 Chronic sinusitis 46929848 Active 2023 Oh hernández [place] - [facility] 4 12:16:47 Polyp of nasal cavity 411903731 Active 2023 Oh hernández [place] - [facility] 4 12:17:03 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 Procedures Surgical History Date Name Laterality Status Provider Name and Address Organization Details Recorded Time 03/08/19 25 Allergy Immunotherapy Injections completed KEN CARDENAS Isabela [address], [place], [address], [place] - [facility] 03/08/2024 12:13:50 03/01/20 24 Allergy Immunotherapy Injections completed JUAQUIN YAÑEZ RN [address] [facility] [place],[address] [place] [address], [address], [place] [facility] 03/01/2024 09:38:10 02/23/20 24 Allergy Immunotherapy Injections completed JUAQUIN YAÑEZ RN [address] [facility] [place],[address], [address], [place] [facility] 02/23/2024 10:01:24 02/14/20 24 Allergy Immunotherapy Injections completed SCOTTY GUTHRIE [address] [facility] [place] [address], [address], [place] [facility] 02/14/2024 11:05:56 02/07/20 24 Allergy Immunotherapy Injections completed JUAQUIN YAÑEZ RN [address] [facility] [place],[address] [place] [address], [address], [place] [facility] 02/07/2024 10:14:23 02/03/20 24 Allergy Immunotherapy Injections completed SCOTTY RICE [address] [facility] [address] [place] [address], [address], [place] [facility] 02/03/2024 09:34:55 01/24/20 24 Allergy Immunotherapy Injections completed JUAQUIN YAÑEZ RN [address] [address] [place] [address], [address], [place] [facility] 01/24/2024 10:50:50 01/19/20 24 Allergy Immunotherapy Injections completed SCOTTY RICE [address] [facility] [address], [address], [place] [facility] 01/19/2024 13:18:23 01/10/20 24 Allergy Immunotherapy Injections completed SCOTTY RICE [address] [facility] [address] [place] [address], [address], [place] [facility] 01/10/2024 09:42:22 01/03/20 24 Allergy Immunotherapy Injections completed JUAQUIN YAÑEZ RN [address], [address], [place] [facility] 01/03/2024 11:08:00 12/29/19 24 Allergy Immunotherapy Injections completed SCOTTY RICE [address], [address], [place] [facility] 12/29/2023 09:38:54 12/21/19 24 Allergy Immunotherapy Injections completed KEN CARDENAS RMIsabela [address], [address], [place] [facility] 12/21/2023 11:30:52 12/14/19 24 Allergy Immunotherapy Injections completed JUAQUIN YAÑEZ RN [address] [facility] [place],[address] [place] [address], [address], [place] [facility] 12/14/2023 11:25:12 11/23/19 24 Allergy Immunotherapy Injections completed SCOTTY GUTHRIE [address] [facility] [address] [place] [address], [address], [place] [facility] 11/23/2023 10:31:13 11/17/19 24 Allergy Immunotherapy Injections completed KEN CARDENAS Isabela [address] [facility] [place] [address], [address], [place] [facility] 11/17/2023 09:42:16 11/09/19 24 Allergy Immunotherapy Injections completed JUAQUIN YAÑEZ RN [address] [facility] [place] [address], [address], [place] [facility] 11/09/2023 11:29:05 11/01/19 24 Allergy Immunotherapy Injections completed JUAQUIN YAÑEZ RN [address] [address] [place] [address], [address], [place] [facility] 11/01/2023 10:43:38 10/27/19 24 Allergy Immunotherapy Injections completed KEN CARDENAS RMIsabela [address] [facility] [address], [address], [place] [facility] 10/27/2023 11:59:30 10/19/19 24 Allergy Immunotherapy Injections completed JUAQUIN YAÑEZ RN 100 [facility],[address], [address], [place] [facility] 10/19/2023 10:27:27 10/19/19 24 Air & Speech Audio with Tymps (53741, 79785 & 10087) completed DARRIUS OSMAN MA, CCC-A [address] [facility] [place] [address], [address], [place] [facility] 10/19/2023 09:45:15 10/11/19 24 Allergy Immunotherapy Injections completed SCOTTY RICE [address] [facility],[address], [address], [place] [facility] 10/11/2023 09:44:13 10/04/19 24 Allergy Immunotherapy Injections completed SCOTTY GUTHRIE [address] [facility],[address], [address], [place] [facility] 10/04/2023 12:12:37 09/27/19 24 Allergy Immunotherapy Injections completed JUAQUIN YAÑEZ RN 100 [facility],[address], [address], [place] [facility] 09/27/2023 10:51:29 09/20/19 24 Allergy Immunotherapy Injections completed JUAQUIN YAÑEZ RN 100 [facility],[address], [address], [place] [facility] 09/20/2023 10:20:29 09/13/19 24 Allergy Immunotherapy Injections completed SCOTTY RICE [address] [facility],[address] [place] [address], [address], [place] [facility] 09/13/2023 12:56:00 09/05/19 24 Allergy Immunotherapy Injections completed JUAQUIN YAÑEZ RN 100 [facility],[address], [address], [place] [facility] 09/05/2023 09:56:55 08/31/19 24 Allergy Immunotherapy Injections completed SCOTTY RICE [address] [facility],[address], [address], [place] [facility] 08/31/2023 09:14:03 08/23/19 24 Allergy Immunotherapy Injections completed KEN RASTAZEC, RMA [address], [place], [address], [facility] - [facility] 08/23/2023 09:35:11 08/17/19 24 Allergy Immunotherapy Injections completed KEN KORZEC, RMA [address], [place], [address], [facility] - [facility] 08/17/2023 10:13:24 08/10/19 24 Allergy Immunotherapy Injections completed KEN KORZEC, RMA [address], [place], [address], [facility] - [facility] 08/10/2023 11:14:06 08/03/19 24 Allergy Immunotherapy Injections completed JUAQUIN YAÑEZ RN [address], [place], [address], [facility] - [facility] 08/03/2023 10:25:33 07/27/19 24 Allergy Immunotherapy Injections completed KEN KORZEC, RMA [address] [facility], [place], [address], [facility] - [facility] 07/27/2023 10:39:49 07/21/19 24 Allergy Immunotherapy Injections completed KEN KORZEC, RMA [address], [place], [address], [facility] - [facility] 07/21/2023 10:29:54 Imaging Results None recorded. Procedure Notes None recorded. Medical Equipment None Reported. Allergies Allergen ID Allergen Name Allergen Category Reaction Reaction Severity Criticality Documentation Date Start Date Code Code System Note Provider Name and Address Organization Details Recorded Time 608368 oxycodone medicatio n Not available Not available Not available 07/19/2023 7804 RxNorm React ion: Dizzi ness, Abdom inal pain, Weakn ess; Not Available [facility] 4 01:20:52 001515 lactose Not available diarrhea Not available Not available 07/19/2023 6211 RxNorm React ion: Diarr hea; Not Available [facility] 4 01:20:53 Medications Name Sig Start [...] mg tablet 09/08 completed Medicati on ID: [id number] B rand Name: dwight hill Send Method: E-Prescr ibed Sub s Allowed: subs OK Speci al Instruct ion: TAKE 1 TABLET BY MOUTH ONCE DAILY WITH FOOD Med icationG enericNa me: wdight hill Not Available Not Available Not Available [...] a day 2023 active Medicati on ID: [id number] D uration Value: 30 Prescri bed By [...] Multi-Vit schaefer tablet active Medicati on ID: [id number] B rand Name: Daily Multi-Vi tamin Se [...] capsule, extended release active Medicati on ID: [id number] B rand Name: Qsymia S end Method: [...] Not Available No t Available Jenise 03/26 (28) 1 mg-20 mcg (21)/75 mg (7) tablet 09/08 completed Medicati on ID: [id number] B rand Name: Jenise Wright 03/26 () Sen d Method: E-Prescr ibed [...] Diagnosis/Indication Diagnosis SNOMED-CT Code Diagnosis ICD10 Code 54325 JUAQUIN YAÑEZ RN Allergy [address] [place] [address],[address] [place] [address] 11/23/2023 10:27:55 11/23/2023 10:32:23 Perennial allergic rhinitis 761540176 J30.89 [id number] JUAQUIN YAÑEZ RN Allergy [address] [place] [address],[address] [place] [address] 12/14/2023 11:23:54 12/14/2023 11:25:34 Perennial allergic rhinitis 133457961 J30.89 [id number] KEN CARDENAS Isabela Allergy [address] [place] [address], [address] [place] [address] 12/21/2023 11:30:12 12/21/2023 11:31:30 Perennial allergic rhinitis 922383592 J30.89 Health Concerns Section Related Observation LastModified by Organization Detai ls LastModified Time None Recorded Concern Status LastModified by Organization Details LastModified Time None Recorded Payers Encounter Date Sequence Insurance Name Policy Number Policy Roche Covered Member ID Roche Member ID Guarantor Name 12/21/2023 1 [facility] [id number] Shelia Fitzgerald [id number] Shelia Fitzgerald OBGyn Episode No OBEpisode recorded.
--- OUTSIDE RECORDS SUMMARY | 2024-03-09 16:02 | XMS_ITS | Continuity of Care Document ---
Author Organization [place] - [facility], Allergy Address [address] [address] Assessment Encounter Date Assessment Date Assessment LastModified by Organization Details LastModified Time 01/03/2024 01/03/2024 Administered By: Juaquin Yañez RN Use of Antihistamines: No If yes: Vial Test Change in medications: No If yes ?? Increase in asthma symptoms No Asthma Hx If yes, inhaler use: Reaction to last injections: No If yes: ?? Allergy Symptoms: Other: ?? Missed 1 week Dose Notes:?? [email or web address] Not available 01/03/2024 11:07:21 Plan of Treatment Reminders Order Date Submit Date Provider Last Modified By Organization Details Last Modified Time Details Appointments [facility]- Allergy f-up 6mon 2024 09:30A M CRISTHIAN [...] observ ation record ed. CE [facility] [place] [address] [facility] [address], [place], [address], 12/15/2023 13:44:07 Result Notes None recorded. Problems Name Problem SNOMED Code Status Onset Date Resolution Date Notes Provider Name and Address Organization Details Recorded Time Achalasia of esophagus 29370769 Active 2022 Achalasia NOS; Note: Date Diagnosed : 06/23/2022 2:49 PM (K22.0) Not Available [facility] 4 03:10:05 Respirato ry finding 752623514 Active 2022 Feeling of foreign body in throat; Note: Date Diagnosed : 06/23/2022 2:49 PM (R09.89) Not Available [facility] 4 03:10:05 Cardiovas cular finding 303966527 Active 2022 Feeling of foreign body in throat; Note: Date Diagnosed : 06/23/2022 2:49 PM (R09.89) Not Available [facility] 4 03:10:05 Posterior rhinorrhe a 14447766 Active 2022 Postnasal drip; Note: Date Diagnosed : 06/23/2022 2:49 PM (R09.82) Not Available [facility] 4 03:10:04 Allergic rhinitis 36145582 Active 2023 Allergic rhinitis: Due to other [...] 9:20 AM (477.8) Note: Date Diagnosed : 9:20 AM (477.8) ; Start Date : [...] Note: Date Diagnosed : 10/16/19 Not Available [facility] 4 01:25:32 Deviated nasal septum 035371145 Active 2022 Deviated nasal septum; Note: Date Diagnosed : 06/23/2022 2:49 PM (J34.2) Not Available [facility] 4 03:10:04 Perennial allergic rhinitis 965410819 Active 20[address] [address], [place], [address] , [facility] - [facility] 4 10:29:26 Snoring 59390262 Active 2023 Snoring; Note: Date Diagnosed : 04/04/2023 8:51 AM (R06.83) Not Available [facility] 4 03:10:03 Obesity 609980373 Active 2023 Other obesity; Note: Date Diagnosed : 04/04/2023 8:51 AM (E66.8) Not Available [facility] 4 03:10:04 Tinnitus of vascular origin 102467405 Active 2023 Pulsatile tinnitus, right ear; Note: Date Diagnosed : 04/04/2023 8:49 AM (H93.A1) Not Available [facility] 4 03:10:04 Sensorine ural hearing loss 64530211 Active 2023 Sensorine ural hearing loss, unilatera l, right ear, with unrestric jaswant hearing on the contralat eral side; Note: Date Diagnosed : 04/04/2023 9:26 AM (H90.41) Not Available [facility] 4 03:10:05 Abnormal auditory perceptio n 51511428 Active 2023 CRISTHIAN VELÁZQUEZ MD [address], [place], [address] , [facility] - [facility] [place] 4 21:49:47 Subjectiv e pulsatile tinnitus of right ear [id number] 75492 Active 2023 CRISTHIAN VELÁZQUEZ MD [address] [facility],[address], [place], [address] , [facility] - [facility] [place] 4 21:53:02 Abnormal auditory perceptio n 19552295 Active 2023 CRISTHIAN VELÁZQUEZ MD [address] [facility],[address] [facility], [place], [place], [address] , [place] - [facility] [place] 4 09:14:23 Non-aller gic rhinitis 18618492765 1 Active 2023 Oh hernández [place] - [facility] [place] 4 12:14:47 Seasonal allergic rhinitis 917005372 Active 2023 Oh hernández [place] - [facility] [place] 4 12:14:47 Chronic sinusitis 88056327 Active 2023 Oh hernández [place] - [facility] [place] 4 12:16:47 Polyp of nasal cavity 855053213 Active 2023 Oh hernández [place] - [facility] [place] 4 12:17:03 Polypoid sinus degenerat ion 81090011 Active 2023 Oh hernández [place] - [facility] [place] 4 12:17:03 Problem Notes None recorded. Procedures Surgical History Date Name Laterality Status Provider Name and Address Organization Details Recorded Time 03/08/19 25 Allergy Immunotherapy Injections completed KEN CARDENAS Isabela [address], [place], [address], [place] - [facility] 03/08/2024 12:13:50 03/01/20 24 Allergy Immunotherapy Injections completed JUAQUIN YAÑEZ RN 100 [facility],[address] [place] [address], [address], [place] - [facility] [place] 03/01/2024 09:38:10 02/23/20 24 Allergy Immunotherapy Injections completed JUAQUIN YAÑEZ RN 100 [facility],[address] [place] [address], [address], [place] - [facility] [place] 02/23/2024 10:01:24 02/14/20 24 Allergy Immunotherapy Injections completed SCOTTY GUTHRIE [address] [facility],[address] [place] [address], [address], [place] - [facility] 02/14/2024 11:05:56 02/07/20 24 Allergy Immunotherapy Injections completed JUAQUIN YAÑEZ RN 100 [facility],[address], [address], [place] [facility] [place] 02/07/2024 10:14:23 02/03/20 24 Allergy Immunotherapy Injections completed SCOTTY RICE 100 [facility],[address] [place] [address], [address], [place] [facility] [place] 02/03/2024 09:34:55 01/24/20 24 Allergy Immunotherapy Injections completed JUAQUIN YAÑEZ RN 100 [facility],[address], [address], [place] [facility] 01/24/2024 10:50:50 01/19/20 24 Allergy Immunotherapy Injections completed SCOTTY RICE [address] [facility] [address] [place] [address], [address], [place] [facility] 01/19/2024 13:18:23 01/10/20 24 Allergy Immunotherapy Injections completed SCOTTY RICE [address] [facility] [address] [place] [address], [address], [place] [facility] 01/10/2024 09:42:22 01/03/20 24 Allergy Immunotherapy Injections completed JUAQUIN YAÑEZ RN 100 [facility],[address], [place], [address], [place] [facility] 01/03/2024 11:08:00 12/29/19 24 Allergy Immunotherapy Injections completed SCOTTY RICE [address] [facility] [address], [place], [address], [place] [facility] [place] 12/29/2023 09:38:54 12/21/19 24 Allergy Immunotherapy Injections completed KEN CARDENAS RMIsabela [address] [facility],[address], [place], [address], [place] [facility] 12/21/2023 11:30:52 12/14/19 24 Allergy Immunotherapy Injections completed JUAQUIN YAÑEZ RN 100 [facility],[address] [place] [address], [address], [place] [facility] 12/14/2023 11:25:12 11/23/19 24 Allergy Immunotherapy Injections completed SCOTTY GUTHRIE [address] [facility],[address] [place] [address], [address], [place] [facility] [place] 11/23/2023 10:31:13 11/17/19 24 Allergy Immunotherapy Injections completed SCOTTY GUTHRIE [address] [facility] [address] [place] [address], [address], [place] [facility] [place] 11/17/2023 09:42:16 11/09/19 24 Allergy Immunotherapy Injections completed JUAQUIN YAÑEZ RN 100 [facility],[address] [place] [address], [address], [place] [facility] [place] 11/09/2023 11:29:05 11/01/19 24 Allergy Immunotherapy Injections completed JUAQUIN YAÑEZ RN [address] [facility],[address] [place] [address], [address], [place] [facility] [place] 11/01/2023 10:43:38 10/27/19 24 Allergy Immunotherapy Injections completed KEN CARDENAS RMIsabela [address] [facility],[address], [place], [address], [place] [facility] [place] 10/27/2023 11:59:30 10/19/19 24 Allergy Immunotherapy Injections completed JUAQUIN YAÑEZ RN 100 [facility],[address], [address], [place] [facility] [place] 10/19/2023 10:27:27 10/19/19 24 Air & Speech Audio with Tymps (11352, 63371 & 98801) completed DARRIUS OSMAN MA, CCC-A [address] [facility] [address], [address], [place] [facility] 10/19/2023 09:45:15 10/11/19 24 Allergy Immunotherapy Injections completed SCOTTY RICE [address] [facility],[address], [address], [place] [facility] [place] 10/11/2023 09:44:13 10/04/19 24 Allergy Immunotherapy Injections completed SCOTTY GUTHRIE [address] [facility],[address], [address], [place] [facility] [place] 10/04/2023 12:12:37 09/27/19 24 Allergy Immunotherapy Injections completed JUAQUIN YAÑEZ RN 100 [facility],[address], [address], [place] [facility] [place] 09/27/2023 10:51:29 09/20/19 24 Allergy Immunotherapy Injections completed JUAQUIN YAÑEZ RN [address] [facility],[address], [address], [place] [facility] [place] 09/20/2023 10:20:29 09/13/19 24 Allergy Immunotherapy Injections completed SCOTTY RICE [address] [facility],[address], [address], [place] [facility] [place] 09/13/2023 12:56:00 09/05/19 24 Allergy Immunotherapy Injections completed JUAQUIN YAÑEZ RN 100 [facility],[address], [address], [place] [facility] [place] 09/05/2023 09:56:55 08/31/19 24 Allergy Immunotherapy Injections completed SCOTTY RICE [address] [facility],[address], [address], [place] [facility] [place] 08/31/2023 09:14:03 08/23/19 24 Allergy Immunotherapy Injections completed KEN KORZEC, RMA [address], [place], [address], [facility] - [facility] [place] 08/23/2023 09:35:11 08/17/19 24 Allergy Immunotherapy Injections completed KEN KORZEC, RMA [address], [place], [address], [facility] - [facility] [place] 08/17/2023 10:13:24 08/10/19 24 Allergy Immunotherapy Injections completed KEN KORZEC, RMA [address], [place], [address], [facility] - [facility] [place] 08/10/2023 11:14:06 08/03/19 24 Allergy Immunotherapy Injections completed JUAQUIN YAÑEZ RN [address], [place], [address], [facility] - [facility] 08/03/2023 10:25:33 07/27/19 24 Allergy Immunotherapy Injections completed KEN KORZEC, RMA [address] [facility] [address], [place], [address], [facility] - [facility] 07/27/2023 10:39:49 07/21/19 24 Allergy Immunotherapy Injections completed KEN KORZEC, RMA [address], [place], [address], [facility] - [facility] 07/21/2023 10:29:54 Imaging Results None recorded. Procedure Notes None recorded. Medical Equipment None Reported. Allergies Allergen ID Allergen Name Allergen Category Reaction Reaction Severity Criticality Documentation Date Start Date Code Code System Note Provider Name and Address Organization Details Recorded Time 599859 oxycodone medicatio n Not available Not available Not available 07/19/2023 7804 RxNorm React ion: Dizzi ness, Abdom inal pain, Weakn ess; Not Available [facility] 4 01:20:52 493887 lactose Not available diarrhea Not available Not available 07/19/2023 6211 RxNorm React ion: Diarr hea; Not Available [facility] 4 01:20:53 Medications Name Sig [...] mg tablet 09/08 completed Medicati on ID: [id number] B rand Name: dwight hill Send Method: [...] a day 2023 active Medicati on ID: [id number] D uration Value: 30 Pres[address] bed By [...] Multi-Vit schaefer tablet active Medicati on ID: 078447 B rand Name: Daily Multi-Vi tamin Se [...] capsule, extended release active Medicati on ID: 746664 B rand Name: Qsymia S end Method: [...] (7) tablet 09/08 completed Medicati on ID: [id number] B rand Name: Jenise 03/26 () Sen [...] Diagnosis/Indication Diagnosis SNOMED-CT Code Diagnosis ICD10 Code 49861 JUAQUIN YAÑEZ RN Allergy [address] [place] [address] 12/14/2023 11:23:54 12/14/2023 11:25:34 Perennial allergic rhinitis 871772282 J30.89 07724 KEN NGHIA, [facility] Allergy [address] [place] [address] [address] [place] [address] 12/21/2023 11:30:12 12/21/2023 11:31:30 Perennial allergic rhinitis 882885265 J30.89 79999 VALORIE LUCIO, [facility] Allergy [address] [place] [address] 12/29/2023 09:38:10 12/29/2023 09:40:16 Perennial allergic rhinitis 604802488 J30.89 18263 JUAQUIN YAÑEZ RN Allergy [address] [place] [address] [address] [place] [address] 01/03/2024 11:06:53 01/03/2024 11:08:17 Perennial allergic rhinitis 775570355 J30.89 Health Concerns Section Related Observation LastModified by Organization Detai ls LastModified Time None Recorded Concern Status LastModified by Organization Details LastModified Time None Recorded Payers Encounter Date Sequence Insurance Name Policy Number Policy Roche Covered Member ID Roche Member ID Guarantor Name 01/03/2024 1 [place]: [facility] [place] [id number] Shelia Fitzgerald [id number] Shelia Fitzgerald OBGyn Episode No OBEpisode recorded.
--- OUTSIDE RECORDS SUMMARY | 2024-03-09 16:02 | XMS_ITS | Continuity of Care Document ---
Author Organization [place] - [facility], Allergy Address [address] [address] Assessment Encounter Date Assessment Date Assessment LastModified by Organization Details LastModified Time 12/14/2023 12/14/2023 Administered By: Juaquin Yañez RN Use of Antihistamines: No If yes: Vial Test Change in medications: No If yes ?? Increase in asthma symptoms No Asthma Hx If yes, inhaler use: Reaction to last injections: If yes: ?? Allergy Symptoms: Other: ?? Missed 1 week Yes Dose Decreased Notes:?? [email or web address] Not available 12/14/2023 11:24:37 Plan of Treatment Reminders Order Date Submit Date Provider Last Modified By Organization Details Last Modified Time Details Appointments [facility]- Allergy f-up 6mon 2024 09:30A M CRISTHIAN [...] observ ation record ed. CE [facility] [place] [address] [facility] [address], [place], [address], 12/15/2023 13:44:07 Result Notes None recorded. Problems Name Problem SNOMED Code Status Onset Date Resolution Date Notes Provider Name and Address Organization Details Recorded Time Achalasia of esophagus 24184049 Active 2022 Achalasia NOS; Note: Date Diagnosed : 06/23/2022 2:49 PM (K22.0) Not Available [facility] 4 03:10:05 Respirato ry finding 145212649 Active 2022 Feeling of foreign body in throat; Note: Date Diagnosed : 06/23/2022 2:49 PM (R09.89) Not Available [facility] 4 03:10:05 Cardiovas cular finding 714146324 Active 2022 Feeling of foreign body in throat; Note: Date Diagnosed : 06/23/2022 2:49 PM (R09.89) Not Available [facility] 4 03:10:05 Posterior rhinorrhe a 26151398 Active 2022 Postnasal drip; Note: Date Diagnosed : 06/23/2022 2:49 PM (R09.82) Not Available [facility] 4 03:10:04 Allergic rhinitis 03231101 Active 2023 Allergic rhinitis: Due to other [...] 1:19 PM (477.8) Note: Date Diagnosed : 1:19 PM (477.8) ; Start Date : [...] Note: Date Diagnosed : 10/16/19 Not Available [facility] 4 01:25:32 Deviated nasal septum 981530652 Active 2022 Deviated nasal septum; Note: Date Diagnosed : 06/23/2022 2:49 PM (J34.2) Not Available [facility] 4 03:10:04 Perennial allergic rhinitis 693653697 Active [address], [address] , [facility] - [facility] 4 10:29:26 Snoring 08897499 Active 2023 Snoring; Note: Date Diagnosed : 04/04/2023 8:51 AM (R06.83) Not Available [facility] 4 03:10:03 Obesity 095402269 Active 2023 Other obesity; Note: Date Diagnosed : 04/04/2023 8:51 AM (E66.8) Not Available [facility] 4 03:10:04 Tinnitus of vascular origin 016319700 Active 2023 Pulsatile tinnitus, right ear; Note: Date Diagnosed : 04/04/2023 8:49 AM (H93.A1) Not Available [facility] 4 03:10:04 Sensorine ural hearing loss 16362232 Active 2023 Sensorine ural hearing loss, unilatera l, right ear, with unrestric jaswant hearing on the contralat eral side; Note: Date Diagnosed : 04/04/2023 9:26 AM (H90.41) Not Available [facility] 4 03:10:05 Abnormal auditory perceptio n 61779236 Active 2023 CRISTHIAN VELÁZQUEZ MD [address], [place], [address] , [facility] - [facility] 4 21:49:47 Subjectiv e pulsatile tinnitus of right ear [id number] 22241 Active 2023 CRISTHIAN VELÁZQUEZ MD [address] [facility], [place], [place], [address] , [facility] - [facility] 4 21:53:02 Abnormal auditory perceptio n 57130675 Active 2023 CRISTHIAN VELÁZQUEZ MD [address] [facility],[address] [facility], [place], [place], [address] , 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 Procedures Surgical History Date Name Laterality Status Provider Name and Address Organization Details Recorded Time 03/08/19 25 Allergy Immunotherapy Injections completed KEN CARDENAS Isabela [address] [facility] [address] [facility] [address], [place], [address], [place] - [facility] 03/08/2024 12:13:50 03/01/20 24 Allergy Immunotherapy Injections completed JUAQUIN YAÑEZ RN [address] [place] [address], [address], [place] - [facility] 03/01/2024 09:38:10 02/23/20 24 Allergy Immunotherapy Injections completed JUAQUIN YAÑEZ RN [address] [facility] [address], [address], [place] [facility] 02/23/2024 10:01:24 02/14/20 24 Allergy Immunotherapy Injections completed SCOTTY GUTHRIE [address] [place] [address], [address], [place] [facility] 02/14/2024 11:05:56 02/07/20 24 Allergy Immunotherapy Injections completed JUAQUIN YAÑEZ RN 100 [facility],[address] [place] [address], [address], [place] [facility] 02/07/2024 10:14:23 02/03/20 24 Allergy Immunotherapy Injections completed SCOTTY RICE [address] [facility] [place] [address], [address], [place] [facility] 02/03/2024 09:34:55 01/24/20 24 Allergy Immunotherapy Injections completed JUAQUIN YAÑEZ RN [address] [facility] [address] [address] [place] [address], [address], [place] [facility] 01/24/2024 10:50:50 01/19/20 24 Allergy Immunotherapy Injections completed SCOTTY RICE [address] [facility] [address] [address], [address], [place] [facility] 01/19/2024 13:18:23 01/10/20 24 Allergy Immunotherapy Injections completed SCOTTY RICE [address] [facility] [address] [address], [address], [place] [facility] 01/10/2024 09:42:22 01/03/20 24 Allergy Immunotherapy Injections completed JUAQUIN YAÑEZ RN [address] [facility] [address], [place], [address], [place] [facility] 01/03/2024 11:08:00 12/29/19 24 Allergy Immunotherapy Injections completed SCOTTY RICE [address] [facility] [address], [address], [place] [facility] 12/29/2023 09:38:54 12/21/19 24 Allergy Immunotherapy Injections completed KEN CARDENAS RMIsabela [address] [facility] [address], [address], [place] [facility] 12/21/2023 11:30:52 12/14/19 24 Allergy Immunotherapy Injections completed JUAQUIN YAÑEZ RN 100 [facility],[address] [place] [address], [address], [place] [facility] 12/14/2023 11:25:12 11/23/19 24 Allergy Immunotherapy Injections completed SCOTTY GUTHRIE 100 [facility],[address] [place] [address], [address], [place] [facility] 11/23/2023 10:31:13 11/17/19 24 Allergy Immunotherapy Injections completed SCOTTY GUTHRIE [address] [facility],[address] [place] [address], [address], [place] [facility] 11/17/2023 09:42:16 11/09/19 24 Allergy Immunotherapy Injections completed JUAQUIN YAÑEZ RN 100 [facility],[address] [place] [address], [address], [place] [facility] 11/09/2023 11:29:05 11/01/19 24 Allergy Immunotherapy Injections completed JUAQUIN YAÑEZ RN [address] [facility],[address] [place] [address], [address], [place] [facility] 11/01/2023 10:43:38 10/27/19 24 Allergy Immunotherapy Injections completed KEN CARDENAS RMIsabela [address] [facility],[address], [address], [place] [facility] 10/27/2023 11:59:30 10/19/19 24 Allergy Immunotherapy Injections completed JUAQUIN YAÑEZ RN 100 [facility],[address], [address], [place] [facility] 10/19/2023 10:27:27 10/19/19 24 Air & Speech Audio with Tymps (78073, 74683 & 97732) completed DARRIUS OSMAN [place], CCC-A [address] [facility] [address] [facility], [place], [address], [place] [facility] 10/19/2023 09:45:15 10/11/19 24 Allergy Immunotherapy Injections completed SCOTTY RICE [address] [facility],[address], [address], [place] [facility] 10/11/2023 09:44:13 10/04/19 24 Allergy Immunotherapy Injections completed SCOTTY GUTHRIE [address] [facility],[place] [address] [place] [address], [address], [place] [facility] 10/04/2023 12:12:37 09/27/19 24 Allergy Immunotherapy Injections completed JUAQUIN YAÑEZ RN 100 [facility],[address], [address], [place] [facility] 09/27/2023 10:51:29 09/20/19 24 Allergy Immunotherapy Injections completed JUAQUIN YAÑEZ RN [address] [facility],[address], [address], [place] [facility] 09/20/2023 10:20:29 09/13/19 24 Allergy Immunotherapy Injections completed SCOTTY RICE 100 [facility],[address], [address], [place] [facility] 09/13/2023 12:56:00 09/05/19 24 Allergy Immunotherapy Injections completed JUAQUIN YAÑEZ RN 100 [facility],[address], [address], [place] [facility] 09/05/2023 09:56:55 08/31/19 24 Allergy Immunotherapy Injections completed SCOTTY RICE [address] [facility],[address], [address], [place] [facility] 08/31/2023 09:14:03 08/23/19 24 Allergy Immunotherapy Injections completed KEN RASTAZEC, RMA [address], [place], [address], [facility] - [facility] 08/23/2023 09:35:11 08/17/19 24 Allergy Immunotherapy Injections completed KEN KORZEC, RMA [address], [place], [address], [facility] - [facility] 08/17/2023 10:13:24 08/10/19 24 Allergy Immunotherapy Injections completed KEN KORZEC, RMA [address], [place], [address], [facility] - [facility] 08/10/2023 11:14:06 08/03/19 24 Allergy Immunotherapy Injections completed JUAQUIN YAÑEZ RN [address] [facility], [place], [address], [facility] - [facility] 08/03/2023 10:25:33 07/27/19 24 Allergy Immunotherapy Injections completed KEN KORZEC, RMA [address],[place] [address], [address], [facility] - [facility] 07/27/2023 10:39:49 07/21/19 24 Allergy Immunotherapy Injections completed KEN KORZEC, RMA [address] [facility], [place], [address], [facility] - [facility] 07/21/2023 10:29:54 Imaging Results None recorded. Procedure Notes None recorded. Medical Equipment None Reported. Allergies Allergen ID Allergen Name Allergen Category Reaction Reaction Severity Criticality Documentation Date Start Date Code Code System Note Provider Name and Address Organization Details Recorded Time 786225 oxycodone medicatio n Not available Not available Not available 07/19/2023 7804 RxNorm React ion: Dizzi ness, Abdom inal pain, Weakn ess; Not Available [facility] 4 01:20:52 283795 lactose Not available diarrhea Not available Not available 07/19/2023 6211 RxNorm React ion: Diarr hea; Not Available [facility] 4 01:20:53 Medications Name Sig Start [...] mg tablet 09/08 completed Medicati on ID: [id number] B lady Name: dwight hill Send Method: E-Prescr ibed [...] a day 2023 active Medicati on ID: [id number] D uration Value: 30 Presc[address] bed By [...] Multi-Vit schaefer tablet active Medicati on ID: [id number] B rand Name: Daily Multi-Vi tamin Se [...] capsule, extended release active Medicati on ID: [id number] B rand Name: Qsymia S end Method: [...] (7) tablet 09/08 completed Medicati on ID: [id number] B rand Name: Jenise Wright 03/26 () [...] Diagnosis/Indication Diagnosis SNOMED-CT Code Diagnosis ICD10 Code 93070 [facility] All[facility] [address] [place] [address], [address] [place] [address] 11/17/2023 09:40:52 11/17/2023 11:43:31 Perennial allergic rhinitis 755190835 J30.89 62981 JUAQUIN YAÑEZ RN Allergy [address] [place] [address] [address] [place] [address] 11/23/2023 10:27:55 11/23/2023 10:32:23 Perennial allergic rhinitis 326002269 J30.89 85645 JUAQUIN YAÑEZ RN Allergy [address] [place] [address] 100 [place] [address] 12/14/2023 11:23:54 12/14/2023 11:25:34 Perennial allergic rhinitis 741870102 J30.89 Health Concerns Section Related Observation LastModified by Organization Baudilio murphy LastModified Time None Recorded Concern Status LastModified by Organization Details LastModified Time None Recorded Payers Encounter Date Sequence Insurance Name Policy Number Policy Roche Covered Member ID Roche Member ID Guarantor Name 12/14/2023 1 [facility] [facility] [place] [id number] Shelia Fitzgerald [id number] Shelia Fitzgerald OBGyn Episode No OBEpisode recorded.
--- OUTSIDE RECORDS SUMMARY | 2024-03-09 16:02 | XMS_ITS | Continuity of Care Document ---
Author Organization [place] - [facility], Allergy Address [address] [address] Assessment Encounter Date Assessment Date Assessment LastModified by Organization Details LastModified Time 12/29/2023 12/29/2023 Administered By: Kiah Sales Use of Antihistamines: No If yes: Vial Test Change in medications: No If yes ?? Increase in asthma symptoms If yes, inhaler use: Reaction to last injections: No If yes: ?? Allergy Symptoms: Other: ?? Missed 1 week Dose Notes:?? Not available 12/29/2023 09:38:44 Plan of Treatment Reminders Order Date Submit Date Provider Last Modified By Organization Details Last Modified Time Details Appointments [facility]- Allergy f-up 6mon 2024 09:30A M CRISTHIAN [...] Abnormal Flag Note LastModifiedBy Organization Detail LastModifiedTime 12/15/1912/14/2023 CT, sinus es, w/o contr ast No observ ation record ed. [facility] [place] [address] [facility] [address], [place], [address], 12/15/2023 13:44:07 Result Notes None recorded. Problems Name Problem SNOMED Code Status Onset Date Resolution Date Notes Provider Name and Address Organization Details Recorded Time Achalasia of esophagus 19524931 Active 2022 Achalasia NOS; Note: Date Diagnosed : 06/23/2022 2:49 PM (K22.0) Not Available [facility] 4 03:10:05 Respirato ry finding 799097213 Active 2022 Feeling of foreign body in throat; Note: Date Diagnosed : 06/23/2022 2:49 PM (R09.89) Not Available [facility] 4 03:10:05 Cardiovas cular finding 295338303 Active 2022 Feeling of foreign body in throat; Note: Date Diagnosed : 06/23/2022 2:49 PM (R09.89) Not Available [facility] 4 03:10:05 Posterior rhinorrhe a 63688991 Active 2022 Postnasal drip; Note: Date Diagnosed : 06/23/2022 2:49 PM (R09.82) Not Available [facility] 4 03:10:04 Allergic rhinitis 68583155 Active 2023 Allergic rhinitis: Due to other [...] Note: Date Diagnosed : 10/16/19 Not Available [facility] 4 01:25:32 Deviated nasal septum 490716572 Active 2022 Deviated nasal septum; Note: Date Diagnosed : 06/23/2022 2:49 PM (J34.2) Not Available [facility] 4 03:10:04 Perennial allergic rhinitis 917793440 Active [address],[place] [address], [place], [address] , [facility] - [facility] 4 10:29:26 Snoring 17853140 Active 2023 Snoring; Note: Date Diagnosed : 04/04/2023 8:51 AM (R06.83) Not Available [facility] 4 03:10:03 Obesity 203662837 Active 2023 Other obesity; Note: Date Diagnosed : 04/04/2023 8:51 AM (E66.8) Not Available [facility] 4 03:10:04 Tinnitus of vascular origin 618332228 Active 2023 Pulsatile tinnitus, right ear; Note: Date Diagnosed : 04/04/2023 8:49 AM (H93.A1) Not Available [facility] 4 03:10:04 Sensorine ural hearing loss 92923630 Active 2023 Sensorine ural hearing loss, unilatera l, right ear, with unrestric jaswant hearing on the contralat eral side; Note: Date Diagnosed : 04/04/2023 9:26 AM (H90.41) Not Available [facility] 4 03:10:05 Abnormal auditory perceptio n 94017352 Active 2023 CRISTHIAN VELÁZQUEZ MD [address], [place], [address] , [place] - [facility] 4 21:49:47 Subjectiv e pulsatile tinnitus of right ear [id number] 53667 Active 2023 CRISTHIAN VELÁZQUEZ MD 100 [facility] [address], [place], [address] , [place] - [facility] 4 21:53:02 Abnormal auditory perceptio n 94545670 Active 2023 CRISTHIAN VELÁZQUEZ MD 100 [facility] [address], [place], [address] , [place] - [facility] 4 09:14:23 Non-aller gic rhinitis 66150733941 1 Active 2023 Oh hernández [place] - [facility] 4 12:14:47 Seasonal allergic rhinitis 962610271 Active 2023 Oh hernández [place] - [facility] 4 12:14:47 Chronic sinusitis 48922932 Active 2023 Oh hernández [place] - [facility] 4 12:16:47 Polyp of nasal cavity 588976701 Active 2023 Oh hernández [place] - [facility] 4 12:17:03 Polypoid sinus degenerat ion 92153938 Active 2023 Oh hernández [place] - [facility] 4 12:17:03 Problem Notes None recorded. Procedures Surgical History Date Name Laterality Status Provider Name and Address Organization Details Recorded Time 03/08/19 25 Allergy Immunotherapy Injections completed KEN CARDENAS Isabela [address], [place], [address], [place] - [facility] 03/08/2024 12:13:50 03/01/20 24 Allergy Immunotherapy Injections completed JUAQUIN YAÑEZ RN 100 [facility] [address], [place], [address], [place] [facility] 03/01/2024 09:38:10 02/23/20 24 Allergy Immunotherapy Injections completed JUAQUIN YAÑEZ RN 100 [facility] [address], [place], [address], [place] [facility] 02/23/2024 10:01:24 02/14/20 24 Allergy Immunotherapy Injections completed SCOTTY GUTHRIE 100 [facility] [address] [place] [address], [address], [place] [facility] 02/14/2024 11:05:56 02/07/20 24 Allergy Immunotherapy Injections completed JUAQUIN YAÑEZ RN 100 [facility] [place],[address] [place] [address], [address], [place] [facility] 02/07/2024 10:14:23 02/03/20 24 Allergy Immunotherapy Injections completed SCOTTY RICE 100 [facility] [address] [place] [address], [address], [place] [facility] 02/03/2024 09:34:55 01/24/20 24 Allergy Immunotherapy Injections completed JUAQUIN YAÑEZ RN 100 [facility] [address] [place] [address], [address], [place] [facility] 01/24/2024 10:50:50 01/19/20 24 Allergy Immunotherapy Injections completed SCOTTY RICE 100 [facility] [address], [place], [address], [place] [facility] 01/19/2024 13:18:23 01/10/20 24 Allergy Immunotherapy Injections completed SCOTTY RICE 100 [facility] [address], [place], [address], [place] [facility] 01/10/2024 09:42:22 01/03/20 24 Allergy Immunotherapy Injections completed JUAQUIN YAÑEZ RN 100 [facility] [address], [place], [address], [place] [facility] 01/03/2024 11:08:00 12/29/19 24 Allergy Immunotherapy Injections completed SCOTTY RICE 100 [facility] [place],[address] [place] [address], [address], [place] [facility] 12/29/2023 09:38:54 12/21/19 24 Allergy Immunotherapy Injections completed KEN CARDENAS RMIsabela 100 [facility] [address], [place], [address], [place] [facility] 12/21/2023 11:30:52 12/14/19 24 Allergy Immunotherapy Injections completed JUAQUIN YAÑEZ RN 100 [facility],[address], [address], [place] [facility] 12/14/2023 11:25:12 11/23/19 24 Allergy Immunotherapy Injections completed SCOTTY GUTHRIE 100 [facility],[address] [place] [address], [address], [place] [facility] 11/23/2023 10:31:13 11/17/19 24 Allergy Immunotherapy Injections completed KEN CARDENAS Isabela 100 [facility],[address] [place] [address], [address], [place] [facility] 11/17/2023 09:42:16 11/09/19 24 Allergy Immunotherapy Injections completed JUAQUIN YAÑEZ RN 100 [facility] [place],[address], [address], [place] [facility] 11/09/2023 11:29:05 11/01/19 24 Allergy Immunotherapy Injections completed JUAQUIN YAÑEZ RN 100 [facility],[address] [place] [address], [address], [place] [facility] 11/01/2023 10:43:38 10/27/19 24 Allergy Immunotherapy Injections completed KEN CARDENAS RMIsabela 100 [facility] [place],[address] [place] [address], [address], [place] [facility] 10/27/2023 11:59:30 10/19/19 24 Allergy Immunotherapy Injections completed JUAQUIN YAÑEZ RN [address], [place], [address], [place] [facility] 10/19/2023 10:27:27 10/19/19 24 Air & Speech Audio with Tymps ([id number], 98364 & 38866) completed DARRIUS OSMAN MA, CCC-A [address], [place], [address], [place] [facility] 10/19/2023 09:45:15 10/11/19 24 Allergy Immunotherapy Injections completed SCOTTY RICE 100 [facility] [place],[address] [place] [address], [address], [place] [facility] 10/11/2023 09:44:13 10/04/19 24 Allergy Immunotherapy Injections completed SCOTTY GUTHRIE 100 [facility] [address] [place] [address], [address], [place] [facility] 10/04/2023 12:12:37 09/27/19 24 Allergy Immunotherapy Injections completed JUAQUIN YAÑEZ RN 100 [facility],[address], [address], [place] [facility] 09/27/2023 10:51:29 09/20/19 24 Allergy Immunotherapy Injections completed JUAQUIN YAÑEZ RN 100 [facility] [place],[address] [place] [address], [address], [place] [facility] 09/20/2023 10:20:29 09/13/19 24 Allergy Immunotherapy Injections completed SCOTTY RICE 100 [facility] [place],[address] [place] [address], [address], [place] [facility] 09/13/2023 12:56:00 09/05/19 24 Allergy Immunotherapy Injections completed JUAQUIN YAÑEZ RN 100 [facility],[address] [place] [address], [address], [place] [facility] 09/05/2023 09:56:55 08/31/19 24 Allergy Immunotherapy Injections completed SCOTTY RICE 100 [facility] [place],[address] [place] [address], [address], [place] [facility] 08/31/2023 09:14:03 08/23/19 24 Allergy Immunotherapy Injections completed KEN MAGDALENOZEC, RMA [address], [place], [address], [facility] - [facility] 08/23/2023 09:35:11 08/17/19 24 Allergy Immunotherapy Injections completed KEN KORZEC, RMA [address], [place], [address], [facility] - [facility] 08/17/2023 10:13:24 08/10/19 24 Allergy Immunotherapy Injections completed KEN KORZEC, RMA [address], [place], [address], [facility] - [facility] 08/10/2023 11:14:06 08/03/19 24 Allergy Immunotherapy Injections completed JUAQUIN YAÑEZ RN [address], [place], [address], [facility] - [facility] 08/03/2023 10:25:33 07/27/19 24 Allergy Immunotherapy Injections completed KEN MAGDALENOZEC, RMA [address], [place], [address], [facility] - [facility] 07/27/2023 10:39:49 07/21/19 24 Allergy Immunotherapy Injections completed KEN KORZEC, RMA [address], [place], [address], [facility] - [facility] 07/21/2023 10:29:54 Imaging Results None recorded. Procedure Notes None recorded. Medical Equipment None Reported. Allergies Allergen ID Allergen Name Allergen Category Reaction Reaction Severity Criticality Documentation Date Start Date Code Code System Note Provider Name and Address Organization Details Recorded Time 823235 oxycodone medicatio n Not available Not available Not available 07/19/2023 7804 RxNorm React ion: Dizzi ness, Abdom inal pain, Weakn ess; Not Available [facility] 4 01:20:52 237102 lactose Not available diarrhea Not available Not available 07/19/2023 6211 RxNorm React ion: Diarr hea; Not Available [facility] 4 01:20:53 Medications Name Sig Start Date [...] mg tablet 09/08 completed Medicati on ID: [id number] Tyesha narayanan Name: dwight hill Send Method: [...] a day 2023 active Medicati on ID: [id number] D uration Value: 30 Prescri bed By [...] Multi-Vit schaefer tablet active Medicati on ID: [id number] B rand Name: Daily Multi-Vi tamin Se [...] capsule, extended release active Medicati on ID: 201022 B rand Name: Qsymia S end Method: [...] (7) tablet 09/08 completed Medicati on ID: [id number] B rand Name: Jenise 03/26 () Sen [...] Diagnosis/Indication Diagnosis SNOMED-CT Code Diagnosis ICD10 Code 94047 JUAQUIN YAÑEZ RN Allergy [address] [place] [address],[facility] [address] [place] [address] 12/14/2023 11:23:54 12/14/2023 11:25:34 Perennial allergic rhinitis 772429616 J30.89 34307 KEN CARDENAS [facility] Allergy [address] [place] [address] [address] [place] [address] 12/21/2023 11:30:12 12/21/2023 11:31:30 Perennial allergic rhinitis 859161736 J30.89 95851 KIAH SALES [facility] Allergy [address] [place] [address] [address] [place] [address] 12/29/2023 09:38:10 12/29/2023 09:40:16 Perennial allergic rhinitis 274113008 J30.89 Health Concerns Section Related Observation LastModified by Organization Detai ls LastModified Time None Recorded Concern Status LastModified by Organization Details LastModified Time None Recorded Payers Encounter Date Sequence Insurance Name Policy Number Policy Roche Covered Member ID Roche Member ID Guarantor Name 12/29/2023 1 [facility] [id number] Shelia Fitzgerald [id number] Shelia Fitzgerald [employer] Episode No OBEpisode recorded.
== END 2024-03-09 14:39 | disposition home or self-care (01) ==
LOC: HO.XRAY 14:38
PROVIDERS: PCP Internal Medicine; Visit Provider Internal Medicine
DX: M25.562 Pain in left knee (principal)
CPT/HCPCS: 73560

== ENCOUNTER → 2024-03-09 14:42 | Outpatient (BNV) | payer BC, SELFPAY | PROVIDERS: PCP Internal Medicine; Visit Provider Radiology Diagnostic Radiology | DX: M25.562 Pain in left knee (principal) | CPT/HCPCS: 73560 ==

== ENCOUNTER 2024-03-16 07:41 | Outpatient (REF) | payer BC, SELFPAY ==
--- OUTSIDE RECORDS SUMMARY | 2024-03-16 07:44 | XMS_ITS | Data Portability ---
Author Organization [place] - [facility], Allergy Address [address] [place] [address] Assessment Encounter Date Assessment Date Assessment LastModified by Organization Details LastModified Time 02/14/2024 02/14/2024 Administered By: Kiah Lucio Use of Antihistamines: No If yes: Vial Test Change in medications: No If yes ?? Increase in asthma symptoms If yes, inhaler use: Reaction to last injections: No If yes: ?? Allergy Symptoms: Other: ?? Missed 1 week Dose Notes:?? [email or web address] Not available 02/14/2024 11:06:02 02/23/2024 02/23/2024 Administered By: Juaquin Yañez RN Use of Antihistamines: No If yes: Vial Test Change in medications: No If yes ?? Increase in asthma symptoms No Asthma Hx If yes, inhaler use: Reaction to last injections: No If yes: ?? Allergy Symptoms: Other: ?? Missed 1 week Dose Notes:?? [email or web address] Not available 02/23/2024 10:01:33 03/01/2024 03/01/2024 Visit With: Juaquin Yañez RN Use of Antihistamines: No If yes: Vial Test Change in medications: No If yes ?? Increase in asthma symptoms No Asthma Hx If yes, inhaler use: Reaction to last injections: No If yes: ?? Allergy Symptoms: Other: ?? Missed: Dose Aware of Vial Test Notes:?? [email or web address] Not available 03/01/2024 09:38:18 03/08/2024 03/08/2024 Visit With: Kiah Lucio Use of Antihistamines: No If yes: Vial Test Change in medications: No If yes ?? Increase in asthma symptoms If yes, inhaler use: Reaction to last injections: No If yes: ?? Allergy Symptoms: Other: ?? Missed: Dose Aware of Vial Test Notes:?? [email or web address] Not available 03/08/2024 12:14:03 03/13/2024 03/13/2024 Visit With: Kiah Lucio Use of Antihistamines: No If yes: Vial Test Change in medications: No If yes ?? Increase in asthma symptoms If yes, inhaler use: Reaction to last injections: No If yes: ?? Allergy Symptoms: Other: ?? Missed: Dose Aware of Vial Test Notes:?? [email or web address] Not available 03/13/2024 11:59:01 Plan of Treatment Reminders Order Date Submit [...] Organization Details Recorded Time Achalasia of esophagus 37918095 Active 2022 Achalasia NOS; Note: Date Diagnosed : 06/23/2022 2:49 PM (K22.0) Not Available [facility] 4 03:10:05 Respirato ry finding 572378863 Active 2022 Feeling of foreign body in throat; Note: Date Diagnosed : 06/23/2022 2:49 PM (R09.89) Not Available [facility] 4 03:10:05 Cardiovas cular finding 746727951 Active 2022 Feeling of foreign body in throat; Note: Date Diagnosed : 06/23/2022 2:49 PM (R09.89) Not Available [facility] 4 03:10:05 Posterior rhinorrhe a 58759753 Active 2022 Postnasal drip; Note: Date Diagnosed : 06/23/2022 2:49 PM (R09.82) Not Available [facility] 4 03:10:04 Allergic rhinitis 69898749 Active 2023 Allergic rhinitis: Due to other [...] 11:49 AM (477.8) ; Start Date : Allergi [...] to other allergen; Note: Date Diagnosed : 1:12 PM (477.8) Note: Date Diagnosed : 1:12 PM (477.8) ; Start Date : Allergi [...] 2:17 PM (477.8) ; Start Date : 3 Allergi c rhinitis: Due to other allergen; Note: Date Diagnosed : 11/25/2022 12:18 PM (477.8) Note: Date Diagnosed : 11/25/2022 12:18 PM (477.8) ; Start Date : 3 Allergi c rhinitis: Due to other allergen; Note: Date Diagnosed : 11/16/2022 9:23 AM (477.8) Note: Date Diagnosed : 11/16/2022 9:23 AM (477.8) ; Start Date : 3 Allergi c rhinitis: Due to other allergen; Note: Date Diagnosed : 11/11/2022 11:35 AM (477.8) Note: Date Diagnosed : 11/11/2022 11:35 AM (477.8) ; Start Date : 3 Allergi c rhinitis: Due to other allergen; Note: Date Diagnosed : 11/05/2022 10:29 AM (477.8) Note: Date Diagnosed : 11/05/2022 10:29 AM (477.8) ; Start Date : 3 [...] Date Diagnosed : 10/16/19 Not Available [facility] 4 01:25:32 Deviated nasal septum 803954492 Active 2022 Deviated nasal septum; Note: Date Diagnosed : 06/23/2022 2:49 PM (J34.2) Not Available [facility] 4 03:10:04 Perennial allergic rhinitis 912594802 Active 2023 KEN CARDENAS, RMA [address] [facility] [[email or web address]] 100, [place], [address] , [place] - [facility] 4 10:29:26 Snoring 63055898 Active 2023 Snoring; Note: Date Diagnosed : 04/04/2023 8:51 AM (R06.83) Not Available [facility] 4 03:10:03 Obesity 091604872 Active 2023 Other obesity; Note: Date Diagnosed : 04/04/2023 8:51 AM (E66.8) Not Available [facility] 4 03:10:04 Tinnitus of vascular origin 763428914 Active 2023 Pulsatile tinnitus, right ear; Note: Date Diagnosed : 04/04/2023 8:49 AM (H93.A1) Not Available [facility] 4 03:10:04 Sensorine ural hearing loss 18930357 Active 2023 Sensorine ural hearing loss, unilatera l, right ear, with unrestric jaswant hearing on the contralat eral side; Note: Date Diagnosed : 04/04/2023 9:26 AM (H90.41) Not Available [facility] 4 03:10:05 Abnormal auditory perceptio n 69565332 Active 2023 CRISTHIAN VELÁZQUEZ MD 100 [facility],[place] [address], [place], [address] , [place] - [facility] 4 21:49:47 Subjectiv e pulsatile tinnitus of right ear [id number] 20443 Active 2023 CRISTHIAN VELÁZQUEZ MD [address] [facility],[place] [address], [place], [address] , [place] [facility] 4 21:53:02 Abnormal auditory perceptio n 48762230 Active 2023 CRISTHIAN VELÁZQUEZ MD [address] [facility],[place] [address], [facility] [place], [address] , [facility] - [facility] 4 09:14:23 Non-aller gic rhinitis 09124526118 1 Active 2023 Oh hernández, [place] - [facility] 4 12:14:47 Seasonal allergic rhinitis 079400679 Active 2023 Oh hernández, [place] - [facility] 4 12:14:47 Chronic sinusitis 24282040 Active 2023 Ohisabela hernández, [place] - [facility] 4 12:16:47 Polyp of nasal cavity 955816691 Active 2023 Ohisabela hernández, [place] - [facility] 4 12:17:03 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 Procedures Surgical History Date Name Laterality Status Provider Name and Address Organization Details Recorded Time 03/13/19 25 Allergy Immunotherapy Injections completed KEN AGRAWAL [address], [address], [facility] - [facility] 03/13/2024 11:58:51 03/08/19 25 Allergy Immunotherapy Injections completed KEN CARDENAS [facility] 100 [facility],[address], [address], [facility] - [facility] 03/08/2024 12:13:50 03/01/20 24 Allergy Immunotherapy Injections completed JUAQUIN YAÑEZ RN 100 [facility],[address], [address], [facility] - [facility] 03/01/2024 09:38:10 02/23/20 24 Allergy Immunotherapy Injections completed JUAQUIN YAÑEZ RN 100 [facility],[address], [address], [facility] - [facility] 02/23/2024 10:01:24 02/14/20 24 Allergy Immunotherapy Injections completed KEN CARDENAS, RMIsabela [address], [place], [address], [place] - [facility] 02/14/2024 11:05:56 02/07/20 24 Allergy Immunotherapy Injections completed JUAQUIN YAÑEZ RN [address], [place], [address], [place] [facility] 02/07/2024 10:14:23 02/03/20 24 Allergy Immunotherapy Injections completed SCOTTY RICE [address], [place], [address], [place] [facility] 02/03/2024 09:34:55 01/24/20 24 Allergy Immunotherapy Injections completed JUAQUIN YAÑEZ RN [address], [place], [address], [place] [facility] 01/24/2024 10:50:50 01/19/20 24 Allergy Immunotherapy Injections completed SCOTTY RICE [address] [facility], [place], [address], [place] [facility] 01/19/2024 13:18:23 01/10/20 24 Allergy Immunotherapy Injections completed SCOTTY RICE [address], [place], [address], [place] [facility] 01/10/2024 09:42:22 01/03/20 24 Allergy Immunotherapy Injections completed JUAQUIN YAÑEZ RN [address] [facility] [place] [address] [place] [address], [address], [place] [facility] 01/03/2024 11:08:00 12/29/19 24 Allergy Immunotherapy Injections completed SCOTTY RICE [address], [place], [address], [place] [facility] 12/29/2023 09:38:54 12/21/19 24 Allergy Immunotherapy Injections completed KEN CARDENAS RMIsabela [address], [place], [address], [place] [facility] 12/21/2023 11:30:52 12/14/19 24 Allergy Immunotherapy Injections completed JUAQUIN YAÑEZ RN [address],[place] [facility], [place], [address], [facility] - [facility] 12/14/2023 11:25:12 11/23/19 24 Allergy Immunotherapy Injections completed KEN CARDENAS, [facility] [address],[place] [address] [place] [address], [address], [place] [facility] 11/23/2023 10:31:13 11/17/19 24 Allergy Immunotherapy Injections completed KEN CARDENAS [facility] [address],[place] [address] [place] [address], [address], [place] [facility] 11/17/2023 09:42:16 11/09/19 24 Allergy Immunotherapy Injections completed JUAQUIN YAÑEZ RN 100 [facility],[place] [address] [place] [address], [address], [facility] - [facility] 11/09/2023 11:29:05 11/01/19 24 Allergy Immunotherapy Injections completed JUAQUIN YAÑEZ RN 100 [facility],[place] [address] [place] [address], [address], [facility] - [facility] 11/01/2023 10:43:38 10/27/19 24 Allergy Immunotherapy Injections completed KEN CARDENAS [facility] [address] [facility] [place] [address] [place] [address], [address], [facility] - [facility] 10/27/2023 11:59:30 10/19/19 24 Allergy Immunotherapy Injections completed JUAQUIN YAÑEZ RN 100 [facility],[address], [address], [facility] - [facility] 10/19/2023 10:27:27 10/19/19 24 Air & Speech Audio with Tymps (43001, 75028 & 60616) completed DARRIUS OSMAN [place], JOAN-Isabela [address] [facility],[place] [address] [place] [address], [address], [facility] - [facility] 10/19/2023 09:45:15 10/11/19 24 Allergy Immunotherapy Injections completed SCOTTY RICE [address] [facility],[place] [address] [place] [address], [address], [place] - [facility] 10/11/2023 09:44:13 10/04/19 24 Allergy Immunotherapy Injections completed SCOTTY GUTHRIE [address] [address] [place] [address], [address], [place] [facility] 10/04/2023 12:12:37 09/27/19 24 Allergy Immunotherapy Injections completed JUAQUIN YAÑEZ RN [address], [place], [address], [place] [facility] 09/27/2023 10:51:29 09/20/19 24 Allergy Immunotherapy Injections completed JUAQUIN YAÑEZ RN [address],[place] [address] [place] [address], [address], [place] [facility] 09/20/2023 10:20:29 09/13/19 24 Allergy Immunotherapy Injections completed SCOTTY RICE [address],[place] [address] [place] [address], [address], [place] [facility] 09/13/2023 12:56:00 09/05/19 24 Allergy Immunotherapy Injections completed JUAQUIN YAÑEZ RN [address],[place] [address] [place] [address], [address], [place] [facility] 09/05/2023 09:56:55 08/31/19 24 Allergy Immunotherapy Injections completed SCOTTY RICE [address],[place] [address] [place] [address], [address], [place] [facility] 08/31/2023 09:14:03 08/23/19 24 Allergy Immunotherapy Injections completed KEN CARDENAS RMA [address], [place], [address], [place] [facility] 08/23/2023 09:35:11 08/17/19 24 Allergy Immunotherapy Injections completed KEN CARDENAS RMA [address], [place], [address], [place] [facility] 08/17/2023 10:13:24 08/10/19 24 Allergy Immunotherapy Injections completed KEN CARDENAS RMA [address], [place], [address], [facility] - [facility] 08/10/2023 11:14:06 08/03/19 24 Allergy Immunotherapy Injections completed JUAQUIN YAÑEZ RN 100 [facility],[address], [address], [facility] - [facility] 08/03/2023 10:25:33 07/27/19 24 Allergy Immunotherapy Injections completed KEN CARDENAS [facility] 100 [facility],[address], [address], [facility] 07/27/2023 10:39:49 07/21/19 24 Allergy Immunotherapy Injections completed [facility] 100 [facility],[address], [address], [facility] 07/21/2023 10:29:54 Imaging Results None recorded. Procedure Notes None recorded. Medical Equipment None Reported. Allergies Allergen ID Allergen Name Allergen Category Reaction Reaction Severity Criticality Documentation Date Start Date Code Code System Note Provider Name and Address Organization Details Recorded Time 418110 oxycodone medicatio n Not available Not available Not available 07/19/2023 7804 RxNorm React ion: Dizzi ness, Abdom inal pain, Weakn ess; Not Available [facility] 4 01:20:52 319175 lactose Not available diarrhea Not available Not available 07/19/2023 6211 RxNorm React ion: Diarr hea; Not Available [facility] 4 01:20:53 Medications Name Sig Start Date [...] mg tablet 09/08 completed Medicati on ID: 120417 B rand Name: dwight hill Send Method: [...] a day 2023 active Medicati on ID: 653642 D uration Value: 30 Prescri bed By Name: Cristhian M. Schreibs tein, M.D. Bra nd Name: fluticas one propiona [...] Multi-Vit schaefer tablet active Medicati on ID: 216913 B rand Name: Daily Multi-Vi tamin Se [...] capsule, extended release active Medicati on ID: 170987 B rand Name: Qsymia S end Method: [...] Not Available Not Available No t Available Jensie Fe 03/26 () 1 mg-20 mcg (21)/75 mg (7) tablet 09/08 completed Medicati on ID: [id number] B rand Name: Jenise Fe 03/26 () Sen d Method: E-Prescr ibed Sub s Allowed: subs OK Medic ationGen ericName : Jenise Fe 03/26 () Not Available Not Available Not [...] Diagnosis/Indication Diagnosis SNOMED-CT Code Diagnosis ICD10 Code Diagnosis Note 492 CRISTHIAN VELÁZQUEZ MD Allergy [address] [place] [address],[place] [address] [place] [address] 07/21/2023 10:01:06 07/22/2023 13:03:52 Perennial allergic rhinitis [id number] J30.89 1117 CRISTHIAN VELÁZQUEZ MD Allergy [address] [place] [address],[place] [address] [place] [address] 07/27/2023 10:17:14 07/27/2023 11:20:05 Perennial allergic rhinitis 963622400 J30.89 1806 JUAQUIN YAÑEZ RN Allergy [address] [place] [address] it[address] [place] [address] 08/03/2023 10:24:55 08/03/2023 13:01:24 Perennial allergic rhinitis [id number] J30.89 [id number] KEN RASTALEANA [facility] Allergy [address] [place] [address] it[address] [place] [address] 08/10/2023 10:49:51 08/10/2023 11:19:10 Perennial allergic rhinitis 591002854 J30.89 [id number] KEN RASTALEANA [facility] Allergy [address] [place] [address] it[address] [place] [address] 08/17/2023 09:07:38 08/17/2023 11:14:32 Perennial allergic rhinitis 444988844 J30.89 4459 KEN RASTAELANA, A Allergy [address] [place] [address],[place] [address] [place] [address] 08/23/2023 09:03:10 08/23/2023 13:26:57 Perennial allergic rhinitis 285461177 J30.89 5606 KIAH LUCIO [facility] Allergy [address] [place] [address],[place] [address] [place] [address] 08/31/2023 08:49:58 08/31/2023 11:02:35 Perennial allergic rhinitis 366032948 J30.89 6153 JUAQUIN YAÑEZ RN Allergy [address] [place] [address], [place] [address] 09/05/2023 08:46:12 09/05/2023 10:03:05 Perennial allergic rhinitis 338602360 J30.89 7075 KIAH LCUIO [facility] Allergy [address] [place] [address], [place] [address] 09/13/2023 08:41:30 09/13/2023 14:37:18 Perennial allergic rhinitis 037968255 J30.89 8018 JUAQUIN YAÑEZ RN Allergy [address] [place] [address], [place] [address] 09/20/2023 10:16:20 09/21/2023 13:05:24 Perennial allergic rhinitis 726636411 J30.89 [id number] JUAQUIN YAÑEZ RN Allergy [address] [place] [address], [place] [address] 09/27/2023 09:14:35 09/27/2023 10:52:56 Perennial allergic rhinitis 544358981 J30.89 [id number] KEN CARDENAS, [facility] Allergy [address] [place] [address], [place] [address] 10/04/2023 12:11:42 10/04/2023 12:14:07 Perennial allergic rhinitis 400758902 J30.89 [id number] KIAH LUCIO [address] [place] [address] 10/11/2023 09:43:29 10/11/2023 11:09:54 Perennial allergic rhinitis 123661407 J30.89 [id number] CRISTHIAN VELÁZQUEZ MD [facility] [address] [place] [address] 10/19/2023 09:06:55 10/19/2023 10:05:09 Allergic rhinitis 58353157 J30.9 Doing well with immunother apy. EpiPen up-to-date . Abnormal a uditory perception 48083152 H93.291 Audio bilateral SNHL--stab le Subjective pulsatile tinnitus of right ear [id number] 229865 H93.A1 Previous MRA was negative. Deviated nasal septum 12 8680389 J34.2 mild Sensorineu ral hearing loss 33662383 H90.41 10-19-2023 udiologica l evaluation results: Right ear: {{Normal N ormal through 2 kHz Mild M oderate Mo derately-s evere Elizabeth re Profoun d Normal with a mild#}} {{hearing sloping to a mild slopi ng to a moderate s loping to moderately severe slo ping to severe slo ping to profound f lat high frequency low frequency mid frequency cookie bite conroy curve SNHL at 2000Hz#}} {{with* se nsorineura l hearing loss with condu ctive hearing loss with mixed hearing loss with}} {{excellen t* good fa ir poor no measurable }} word recognitio n. Left ear: {{Normal* Normal through 2 kHz Mild M oderate Mo derately-s evere Elizabeth re Profoun d}} {{hearing* sloping to a mild slopi ng to a moderate s loping to moderately severe slo ping to severe slo ping to profound f lat high frequency low frequency mid frequency cookie bite conroy curve}} {{with* se nsorineura l hearing loss with condu ctive hearing loss with mixed hearing loss with}} {{excellen t* good fa ir poor no measurable }} word recognitio n. Tympanomet ry: Right Ear:{{Type A* Type As Type Ad Type C Type C, shallow & rounded Ty pe B Type B with large volume Cou ld not maintain a hermetic seal}} Left Ear:{{Type A* Type As Type Ad Type C Type C, shallow & rounded Ty pe B Type B with large volume Cou ld not maintain a hermetic seal}} [id number] JUAQUIN YAÑEZ RN Allergy 100 [facility] it[address] 100 [place] [address] 10/19/2023 10:26:27 10/19/2023 10:27:52 Perennial allergic rhinitis [id number] J30.89 [id number] SCOTTY GUTHRIE Allergy 100 [facility] [address] 100 [place] [address] 10/27/2023 09:20:07 10/27/2023 13:21:33 Perennial allergic rhinitis 050685831 J30.89 [id number] JUAQUIN YAÑEZ RN Allergy [address] [place] [address] it[address] [place] [address] 11/01/2023 10:42:48 11/01/2023 10:44:36 Perennial allergic rhinitis 704806370 J30.89 [id number] JUAQUIN YAÑEZ RN Allergy [address] [place] [address] it[address] [place] [address] 11/09/2023 11:26:12 11/09/2023 11:29:30 Perennial allergic rhinitis 606344145 J30.89 [id number] [facility], [facility] Allergy [address] [place], [place] [address] [address] [place] [address] 11/17/2023 09:40:52 11/17/2023 11:43:31 Perennial allergic rhinitis [id number] J30.89 [id number] JUAQUIN YAÑEZ RN Allergy [address] [place] [address] it[address] [place] [address] 11/23/2023 10:27:55 11/23/2023 10:32:23 Perennial allergic rhinitis 584639291 J30.89 [id number] JUAQUIN YAÑEZ RN Allergy [address] [place] [address] [address] [place] [address] 12/14/2023 11:23:54 12/14/2023 11:25:34 Perennial allergic rhinitis 945592454 J30.89 [id number] [facility] Allergy [address] [place] [address] [address] [place] [address] 12/21/2023 11:30:12 12/21/2023 11:31:30 Perennial allergic rhinitis [id number] J30.89 [id number] KIAH LUCIO, [facility] Allergy [address] [place] [address] [address] [place] [address] 12/29/2023 09:38:10 12/29/2023 09:40:16 Perennial allergic rhinitis [id number] J30.89 [id number] JUAQUIN YAÑEZ RN Allergy [address] [place] [address] it[address] [place] [address] 01/03/2024 11:06:53 01/03/2024 11:08:17 Perennial allergic rhinitis [id number] J30.89 [id number] KIAH LUCIO, [facility] Allergy [address] [place] [address],[place] [address] [place] [address] 01/10/2024 09:41:40 01/10/2024 09:42:52 Perennial allergic rhinitis [id number] J30.89 [id number] KIAH KHADIJAH, [facility] Allergy [address] [place] [address] it[address] [place] [address] 01/19/2024 13:16:02 01/19/2024 13:20:09 Perennial allergic rhinitis [id number] J30.89 [id number] JUAQUIN YAÑEZ RN Allergy [address] [place] [address] it[address] [place] [address] 01/24/2024 10:49:50 01/24/2024 10:52:32 Perennial allergic rhinitis 569342342 J30.89 [id number] KIAH KHADIJAH, [facility] Allergy [address] [place] [address] it[address] [place] [address] 02/03/2024 09:25:49 02/03/2024 09:35:31 Perennial allergic rhinitis [id number] J30.89 [id number] JUAQUIN YAÑEZ RN Allergy [address] [place] [address] it[address] [place] [address] 02/07/2024 10:13:39 02/07/2024 10:14:50 Perennial allergic rhinitis [id number] J30.89 [id number] [facility], [facility] Allergy [address] [place] [address],[place] [address] [place] [address] 02/14/2024 11:05:15 02/14/2024 11:06:25 Perennial allergic rhinitis [id number] J30.89 [id number] JUAQUIN YAÑEZ RN Allergy [address] [place] [address] [address] [place] [address] 02/23/2024 10:00:14 02/23/2024 10:01:52 Perennial allergic rhinitis [id number] J30.89 [id number] JUAQUIN YAÑEZ RN Allergy [address] [place] [address] [address] [place] [address] 03/01/2024 09:37:35 03/01/2024 09:38:44 Perennial allergic rhinitis [id number] J30.89 [id number] KEN AGRAWAL, RMA Allergy 100 [facility],[place] [address] [place] [address] 03/08/2024 12:13:01 03/08/2024 12:14:59 Perennial allergic rhinitis [id number] J30.89 [id number] KEN AGRAWAL, RMA Allergy 100 [facility],[place] [address] [place] [address] 03/13/2024 11:57:35 03/13/2024 11:59:25 Perennial allergic rhinitis 546354410 J30.89 Health Concerns Section Related Observation LastModified by Organization Detai ls LastModified Time None Recorded Concern Status LastModified by Organization Details LastModified Time None Recorded Advance Directives Directive None Recorded Payers Encounter Date Sequence Insurance Name Policy Number Policy Roche Covered Member ID Roche Member ID Guarantor Name 02/14/2024 1 [place] [facility] [place] [id number] Shelia Haya [id number] Shelia Haya 02/23/2024 1 [place] [facility] [place] [id number] Shelia Haya [id number] Shelia Haya 03/01/2024 1 [place] [facility] [place] [id number] Shelia Haya [id number] Shelia Haya 03/08/2024 1 [place] [facility] [place] ([facility] [place] [id number] Shelia Haya [id number] Shelia Haya 03/13/2024 1 [place] [facility] ([facility] [place] [id number] Shelia Haya [id number] Shelia Haya OBGyn Episode No OBEpisode recorded.
--- OUTSIDE RECORDS SUMMARY | 2024-03-16 07:44 | XMS_ITS | Continuity of Care Document ---
Author Organization [place] - [facility], Allergy Address [address] [address] Assessment Encounter Date Assessment Date Assessment LastModified [...] observ ation record ed. [facility] [place] [address] [facility] [address], [place], [address], 12/15/2023 13:44:07 Result Notes None recorded. Problems Name Problem SNOMED Code Status Onset Date Resolution Date Notes Provider Name and Address Organization Details Recorded Time Achalasia of esophagus 26907247 Active 2022 Achalasia NOS; Note: Date Diagnosed : 06/23/2022 2:49 PM (K22.0) Not Available [facility] 4 03:10:05 Respirato ry finding 037236353 Active 2022 Feeling of foreign body in throat; Note: Date Diagnosed : 06/23/2022 2:49 PM (R09.89) Not Available [facility] 4 03:10:05 Cardiovas cular finding 336900287 Active 2022 Feeling of foreign body in throat; Note: Date Diagnosed : 06/23/2022 2:49 PM (R09.89) Not Available [facility] 4 03:10:05 Posterior rhinorrhe a 53506990 Active 2022 Postnasal drip; Note: Date Diagnosed : 06/23/2022 2:49 PM (R09.82) Not Available [facility] 4 03:10:04 Allergic rhinitis 60530376 Active 2023 Allergic rhinitis: Due to other [...] [facility] 4 01:25:32 Deviated nasal septum 189057154 Active 2022 Deviated nasal septum; Note: Date Diagnosed : 06/23/2022 2:49 PM (J34.2) Not Available [facility] 4 03:10:04 Perennial allergic rhinitis 422078964 Active [address] [address], [place], [address] , [facility] - [facility] 4 10:29:26 Snoring 43550292 Active 2023 Snoring; Note: Date Diagnosed : 04/04/2023 8:51 AM (R06.83) Not Available [facility] 4 03:10:03 Obesity 367901688 Active 2023 Other obesity; Note: Date Diagnosed : 04/04/2023 8:51 AM (E66.8) Not Available [facility] 4 03:10:04 Tinnitus of vascular origin 884310747 Active 2023 Pulsatile tinnitus, right ear; Note: Date Diagnosed : 04/04/2023 8:49 AM (H93.A1) Not Available [facility] 4 03:10:04 Sensorine ural hearing loss 72398869 Active 2023 Sensorine ural hearing loss, unilatera l, right ear, with unrestric jaswant hearing on the contralat eral side; Note: Date Diagnosed : 04/04/2023 9:26 AM (H90.41) Not Available [facility] 4 03:10:05 Abnormal auditory perceptio n 89172051 Active 2023 JOSE VELÁZQUEZ MD [address], [place], [address] , [facility] - [facility] 4 21:49:47 Subjectiv e pulsatile tinnitus of right ear 11833428819 22349 Active 2023 JOSE VELÁZQUEZ MD [address] [facility], [place], [address] , [facility] - [facility] 4 21:53:02 Abnormal auditory perceptio n 18998408 Active 2023 JOSE VELÁZQUEZ MD [address] [facility] [address] [facility], [place], [place], [address] , [place] - [facility] 4 09:14:23 Non-aller gic rhinitis 00873865725 1 Active 2023 Oh hernández [place] - [facility] 4 12:14:47 Seasonal allergic rhinitis 557187660 Active 2023 Oh hernández [place] - [facility] 4 12:14:47 Chronic sinusitis 44341243 Active 2023 Oh hernández [place] - [facility] 4 12:16:47 Polyp of nasal cavity 250700461 Active 2023 Oh hernández [place] - [facility] 4 12:17:03 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 Procedures Surgical History Date Name Laterality Status Provider Name and Address Organization Details Recorded Time 03/13/19 25 Allergy Immunotherapy Injections completed KEN CARDENAS Isabela [address], [place], [address], [place] - [facility] 03/13/2024 11:58:51 03/08/19 25 Allergy Immunotherapy Injections completed SCOTTY GUTHRIE [address] [facility],[place] [address] [place] [address], [address], [place] [facility] 03/08/2024 12:13:50 03/01/20 24 Allergy Immunotherapy Injections completed JUAQUIN YAÑEZ RN [address] [facility],[place] [place] [address], [address], [place] [facility] 03/01/2024 09:38:10 02/23/20 24 Allergy Immunotherapy Injections completed JUAQUIN YAÑEZ RN 100 [facility],[address], [address], [place] [facility] 02/23/2024 10:01:24 02/14/20 24 Allergy Immunotherapy Injections completed KEN CARDENAS Isabela 100 [facility],[address], [address], [place] [facility] 02/14/2024 11:05:56 02/07/20 24 Allergy Immunotherapy Injections completed JUAQUIN YAÑEZ RN 100 [facility],[address], [address], [place] [facility] 02/07/2024 10:14:23 02/03/20 24 Allergy Immunotherapy Injections completed SCOTTY RICE [address] [facility],[address], [address], [place] [facility] 02/03/2024 09:34:55 01/24/20 24 Allergy Immunotherapy Injections completed JUAQUIN YAÑEZ RN 100 [facility],[address] [place] [address], [address], [place] [facility] 01/24/2024 10:50:50 01/19/20 24 Allergy Immunotherapy Injections completed SCOTTY RICE [address] [place] [address], [address], [place] [facility] 01/19/2024 13:18:23 01/10/20 24 Allergy Immunotherapy Injections completed SCOTTY RICE [address],[place], [address], [place] [facility] 01/10/2024 09:42:22 01/03/20 24 Allergy Immunotherapy Injections completed JUAQUIN YAÑEZ RN [address], [place], [address], [place] [facility] 01/03/2024 11:08:00 12/29/19 24 Allergy Immunotherapy Injections completed SCOTTY RICE [address],[place] [address], [place], [address], [place] [facility] 12/29/2023 09:38:54 12/21/19 24 Allergy Immunotherapy Injections completed SCOTTY GUTHRIE [address] [place] [address], [address], [place] [facility] 12/21/2023 11:30:52 12/14/19 24 Allergy Immunotherapy Injections completed JUAQUIN YAÑEZ RN [address] [facility],[place] [address] [place] [address], [address], [place] [facility] 12/14/2023 11:25:12 11/23/19 24 Allergy Immunotherapy Injections completed KEN CARDENAS RMIsabela [address] [place] [address], [address], [place] [facility] 11/23/2023 10:31:13 11/17/19 24 Allergy Immunotherapy Injections completed KEN CARDENAS RMIsabela [address] [facility],[place] [address] [place] [address], [address], [place] [facility] 11/17/2023 09:42:16 11/09/19 24 Allergy Immunotherapy Injections completed JUAQUIN YAÑEZ RN [address] [address] [place] [address], [address], [place] [facility] 11/09/2023 11:29:05 11/01/19 24 Allergy Immunotherapy Injections completed JUAQUIN YAÑEZ RN [address],[place], [address], [place] [facility] 11/01/2023 10:43:38 10/27/19 24 Allergy Immunotherapy Injections completed KEN CARDENAS [facility] [address] [place] [address], [address], [place] [facility] 10/27/2023 11:59:30 10/19/19 24 Allergy Immunotherapy Injections completed JUAQUIN YAÑEZ RN 100 [facility],[address], [address], [place] [facility] 10/19/2023 10:27:27 10/19/19 24 Air & Speech Audio with Tymps ([id number], 04323 & 73337) completed DARRIUS OSMAN MA, CCC-A 100 [facility],[address], [address], [place] [facility] 10/19/2023 09:45:15 10/11/19 24 Allergy Immunotherapy Injections completed SCOTTY RICE 100 [facility],[address], [address], [place] [facility] 10/11/2023 09:44:13 10/04/19 24 Allergy Immunotherapy Injections completed KEN CARDENAS [facility] 100 [facility],[address], [address], [place] [facility] 10/04/2023 12:12:37 09/27/19 24 Allergy Immunotherapy Injections completed JUAQUIN YAEÑZ RN 100 [facility],[address], [address], [place] [facility] 09/27/2023 10:51:29 09/20/19 24 Allergy Immunotherapy Injections completed JUAQUIN YAÑEZ RN 100 [facility],[address], [address], [place] [facility] 09/20/2023 10:20:29 09/13/19 24 Allergy Immunotherapy Injections completed SCOTTY RICE 100 [facility],[address], [address], [place] [facility] 09/13/2023 12:56:00 09/05/19 24 Allergy Immunotherapy Injections completed JUAQUIN YAÑEZ RN 100 [facility],[address], [address], [place] [facility] 09/05/2023 09:56:55 08/31/19 24 Allergy Immunotherapy Injections completed VALORIE LUCIO, RMA [address], [place], [address], [facility] - [facility] 08/31/2023 09:14:03 08/23/19 24 Allergy Immunotherapy Injections completed KEN NGHIAC, RMA [address],[place] [address], [place], [address], [facility] - [facility] 08/23/2023 09:35:11 08/17/19 24 Allergy Immunotherapy Injections completed KEN KORZEC, RMA [address], [place], [address], [facility] - [facility] 08/17/2023 10:13:24 08/10/19 24 Allergy Immunotherapy Injections completed KEN AGRAWALC, RMA [address] [address], [place], [address], [facility] - [facility] 08/10/2023 11:14:06 08/03/19 24 Allergy Immunotherapy Injections completed JUAQUIN YAÑEZ RN [address] [place] [address], [address], [facility] - [facility] 08/03/2023 10:25:33 07/27/19 24 Allergy Immunotherapy Injections completed KEN AGRAWALC, RMA [address],[place] [address], [place], [address], [facility] - [facility] 07/27/2023 10:39:49 07/21/19 24 Allergy Immunotherapy Injections completed KEN RASTAZEC, RMA [address] [address], [place], [address], [facility] - [facility] 07/21/2023 10:29:54 Imaging Results None recorded. Procedure Notes None recorded. Medical Equipment None Reported. Allergies Allergen ID Allergen Name Allergen Category Reaction Reaction Severity Criticality Documentation Date Start Date Code Code System Note Provider Name and Address Organization Details Recorded Time [id number] oxycodone medicatio n Not available Not available Not available 07/19/2023 7804 RxNorm React ion: Dizzi ness, Abdom inal pain, Weakn ess; Not Available [facility] 01:20:52 064474 lactose Not available diarrhea Not available Not available 07/19/2023 6211 RxNorm React ion: Diarr hea; Not Available [facility] 4 01:20:53 Medications Name Sig Start Date [...] mg tablet 09/08 completed Medicati on ID: [id number] B rand Name: dwight hill Send Method: [...] a day 2023 active Medicati on ID: [id number] D uration Value: 30 Pres[address] bed By [...] Multi-Vit schaefer tablet active Medicati on ID: [id number] B rand Name: Daily Multi-Vi tamin Se [...] capsule, extended release active Medicati on ID: [id number] B rand Name: Qsymia S end Method: [...] Available No t Available Jenise Fe 03/26 () 1 mg-20 mcg (21)/75 mg (7) tablet 09/08 completed Medicati on ID: [id number] B rand Name: Jenise 03/26 () Sen [...] SNOMED-CT Code Diagnosis ICD10 Code Diagnosis Note [id number] JUAQUIN YAÑEZ RN Allergy [address] [place] [address] 12/14/2023 11:23:54 12/14/2023 11:25:34 Perennial allergic rhinitis 100788020 J30.89 [id number] [facility] Allergy [address] [place] [address] [address] [place] [address] 12/21/2023 11:30:12 12/21/2023 11:31:30 Perennial allergic rhinitis 828073849 J30.89 [id number] VALORIE LUCIO, [facility] Allergy [address] [place] [address] [address] [place] [address] 12/29/2023 09:38:10 12/29/2023 09:40:16 Perennial allergic rhinitis 606880611 J30.89 [id number] JUAQUIN YAÑEZ RN Allergy [address] [place] [address] 01/03/2024 11:06:53 01/03/2024 11:08:17 Perennial allergic rhinitis 044923121 J30.89 Health Concerns Section Related Observation LastModified by Organization Detai ls LastModified Time None Recorded Concern Status LastModified by Organization Details LastModified Time None Recorded Payers Encounter Date Sequence Insurance Name Policy Number Policy Roche Covered Member ID Roche Member ID Guarantor Name 01/03/2024 1 KETAN: [facility] [place] [id number] Shelia Fitzgerald [id number] Shelia Fitzgerald OBGyn Episode No OBEpisode recorded.
--- OUTSIDE RECORDS SUMMARY | 2024-03-16 07:44 | XMS_ITS | Continuity of Care Document ---
Author Organization [place] - [facility], Allergy Address [address] [address] Assessment Encounter Date Assessment Date Assessment LastModified [...] Organization Details Last Modified Time Details Appointments [facility]- Allergy f-up 6mon 2024 09:30A [...] observ ation record ed. CE [facility] Holder [address] [facility] [address], [place], [address], 12/15/2023 13:44:07 Result Notes None recorded. Problems Name Problem SNOMED Code Status Onset Date Resolution Date Notes Provider Name and Address Organization Details Recorded Time Achalasia of esophagus 90981815 Active 2022 Achalasia NOS; Note: Date Diagnosed : 06/23/2022 2:49 PM (K22.0) Not Available [facility] 4 03:10:05 Respirato ry finding 258171015 Active 2022 Feeling of foreign body in throat; Note: Date Diagnosed : 06/23/2022 2:49 PM (R09.89) Not Available [facility] 4 03:10:05 Cardiovas cular finding 352900388 Active 2022 Feeling of foreign body in throat; Note: Date Diagnosed : 06/23/2022 2:49 PM (R09.89) Not Available [facility] 4 03:10:05 Posterior rhinorrhe a 49947798 Active 2022 Postnasal drip; Note: Date Diagnosed : 06/23/2022 2:49 PM (R09.82) Not Available [facility] 4 03:10:04 Allergic rhinitis 60072056 Active 2023 Allergic rhinitis: Due to other [...] Note: Date Diagnosed : 10/16/19 Not Available [facility] 4 01:25:32 Deviated nasal septum 575739617 Active 2022 Deviated nasal septum; Note: Date Diagnosed : 06/23/2022 2:49 PM (J34.2) Not Available [facility] 4 03:10:04 Perennial allergic rhinitis 876219315 Active [address],[place] [address], [place], [address] , [facility] - [facility] 4 10:29:26 Snoring 94930656 Active 2023 Snoring; Note: Date Diagnosed : 04/04/2023 8:51 AM (R06.83) Not Available [facility] 4 03:10:03 Obesity 183931983 Active 2023 Other obesity; Note: Date Diagnosed : 04/04/2023 8:51 AM (E66.8) Not Available [facility] 4 03:10:04 Tinnitus of vascular origin 606491313 Active 2023 Pulsatile tinnitus, right ear; Note: Date Diagnosed : 04/04/2023 8:49 AM (H93.A1) Not Available [facility] 4 03:10:04 Sensorine ural hearing loss 15311792 Active 2023 Sensorine ural hearing loss, unilatera l, right ear, with unrestric jaswant hearing on the contralat eral side; Note: Date Diagnosed : 04/04/2023 9:26 AM (H90.41) Not Available [facility] 4 03:10:05 Abnormal auditory perceptio n 37359577 Active 2023 JOSE VELÁZQUEZ MD [address], [place], [address] , [place] - [facility] 4 21:49:47 Subjectiv e pulsatile tinnitus of right ear [id number] 56880 Active 2023 JOSE VELÁZQUEZ MD [address], [place], [address] , [place] [facility] 4 21:53:02 Abnormal auditory perceptio n 93737091 Active 2023 JOSE VELÁZQUEZ MD [address] [facility],[address], [place], [address] , [place] - [facility] 4 09:14:23 Non-aller gic rhinitis 31218967352 1 Active 2023 Oh hernández [place] - [facility] 4 12:14:47 Seasonal allergic rhinitis 318755802 Active 2023 Oh hernández [place] - [facility] 4 12:14:47 Chronic sinusitis 24210769 Active 2023 Oh hernández [place] - [facility] 4 12:16:47 Polyp of nasal cavity 906188278 Active 2023 Oh hernández [place] - [facility] 4 12:17:03 Polypoid sinus degenerat ion 14951569 Active 2023 Oh hernández [place] - [facility] 4 12:17:03 Problem Notes None recorded. Procedures Surgical History Date Name Laterality Status Provider Name and Address Organization Details Recorded Time 03/13/19 25 Allergy Immunotherapy Injections completed KEN CARDENAS Isabela [address], [place], [address], [place] [facility] 03/13/2024 11:58:51 03/08/19 25 Allergy Immunotherapy Injections completed SCOTTY GUTHRIE [address] [facility] [address] [place] [address], [address], [place] [facility] 03/08/2024 12:13:50 03/01/20 24 Allergy Immunotherapy Injections completed JUAQUIN YAÑEZ RN [address] [facility] [place] [address], [address], [place] [facility] 03/01/2024 09:38:10 02/23/20 24 Allergy Immunotherapy Injections completed JUAQUIN YAÑEZ RN [address] [facility],[address] [place] [address], [address], [place] [facility] 02/23/2024 10:01:24 02/14/20 24 Allergy Immunotherapy Injections completed KEN CARDENAS Isabela [address] [facility] [place] [address], [address], [place] [facility] 02/14/2024 11:05:56 02/07/20 24 Allergy Immunotherapy Injections completed JUAQUIN YAÑEZ RN [address] [facility],[address] [place] [address], [address], [place] [facility] 02/07/2024 10:14:23 02/03/20 24 Allergy Immunotherapy Injections completed SCOTTY RICE [address] [facility] [address] [place] [address], [address], [place] [facility] 02/03/2024 09:34:55 01/24/20 24 Allergy Immunotherapy Injections completed JUAQUIN YAÑEZ RN [address] [facility] [address] [place] [address], [address], [place] [facility] 01/24/2024 10:50:50 01/19/20 24 Allergy Immunotherapy Injections completed SCOTTY RICE [address] [facility] [address] [place] [address], [address], [place] [facility] 01/19/2024 13:18:23 01/10/20 24 Allergy Immunotherapy Injections completed SCOTTY RICE [address], [place], [address], [place] [facility] 01/10/2024 09:42:22 01/03/20 24 Allergy Immunotherapy Injections completed JUAQUIN YAÑEZ RN [address] [facility] [address],[place] [address], [place], [address], [place] [facility] 01/03/2024 11:08:00 12/29/19 24 Allergy Immunotherapy Injections completed SCOTTY RICE [address] [facility] [address],[place] [address], [place], [address], [place] [facility] 12/29/2023 09:38:54 12/21/19 24 Allergy Immunotherapy Injections completed SCOTTY GUTHRIE [address] [facility] [address],[place] [address], [place], [address], [place] [facility] 12/21/2023 11:30:52 12/14/19 24 Allergy Immunotherapy Injections completed JUAQUIN YAÑEZ RN [address] [facility] [address] [place] [address], [address], [place] [facility] 12/14/2023 11:25:12 11/23/19 24 Allergy Immunotherapy Injections completed KEN CARDENAS RMIsabela [address] [facility] [address] [place] [address], [address], [place] [facility] 11/23/2023 10:31:13 11/17/19 24 Allergy Immunotherapy Injections completed KEN CARDENAS RMA [address],[place] [address], [place], [address], [place] [facility] 11/17/2023 09:42:16 11/09/19 24 Allergy Immunotherapy Injections completed JUAQUIN YAÑEZ RN [address] [facility] [address], [place], [address], [place] [facility] 11/09/2023 11:29:05 11/01/19 24 Allergy Immunotherapy Injections completed JUAQUIN YAÑEZ RN [address],[place] [address], [place], [address], [place] [facility] 11/01/2023 10:43:38 10/27/19 24 Allergy Immunotherapy Injections completed KEN CARDENAS RMA [address], [place], [address], [place] [facility] 10/27/2023 11:59:30 10/19/19 24 Allergy Immunotherapy Injections completed JUAQUIN YAÑEZ RN 100 [facility],[address], [address], [place] [facility] 10/19/2023 10:27:27 10/19/19 24 Air & Speech Audio with Tymps (21835, 09685 & 74734) completed DARRIUS OSMAN MA, CCC-A 100 [facility],[address], [address], [place] [facility] 10/19/2023 09:45:15 10/11/19 24 Allergy Immunotherapy Injections completed VALORIE LUCIO [facility] 100 [facility],[address], [address], [place] [facility] 10/11/2023 09:44:13 10/04/19 24 Allergy Immunotherapy Injections completed KEN CARDENAS, [facility] 100 [facility],[address], [address], [place] [facility] 10/04/2023 12:12:37 09/27/19 24 Allergy Immunotherapy Injections completed JUAQUIN YAÑEZ RN 100 [facility],[address], [address], [place] [facility] 09/27/2023 10:51:29 09/20/19 24 Allergy Immunotherapy Injections completed JUAQUIN YAÑEZ RN 100 [facility],[address], [address], [place] [facility] 09/20/2023 10:20:29 09/13/19 24 Allergy Immunotherapy Injections completed VALORIE LUCIO Isabela [address] [place] [address],[address], [address], [place] [facility] 09/13/2023 12:56:00 09/05/19 24 Allergy Immunotherapy Injections completed JUAQUIN YAÑEZ RN 100 [facility],[address], [address], [place] [facility] 09/05/2023 09:56:55 08/31/19 24 Allergy Immunotherapy Injections completed VALORIE LUCIO, RMA [address],[place] [address], [place], [address], [facility] - [facility] 08/31/2023 09:14:03 08/23/19 24 Allergy Immunotherapy Injections completed KEN MAGDALENOLEANAC, RMA [address],[place] [address], [place], [address], [facility] - [facility] 08/23/2023 09:35:11 08/17/19 24 Allergy Immunotherapy Injections completed KEN KORZEC, RMA [address] [facility] [address], [place], [address], [facility] - [facility] 08/17/2023 10:13:24 08/10/19 24 Allergy Immunotherapy Injections completed KEN MAGDALENOLEANAC, RMA [address] [facility] [address],[place] [address], [place], [address], [facility] - [facility] 08/10/2023 11:14:06 08/03/19 24 Allergy Immunotherapy Injections completed JUAQUIN YAÑEZ RN [address] [facility],[place] [address] [place] [address], [address], [facility] - [facility] 08/03/2023 10:25:33 07/27/19 24 Allergy Immunotherapy Injections completed KEN AGRAWALC, RMA [address] [facility] [address] [place] [address], [address], [facility] - [facility] 07/27/2023 10:39:49 07/21/19 24 Allergy Immunotherapy Injections completed KEN RASTAZEC, RMA [address] [facility],[address] [place] [address], [address], [facility] - [facility] 07/21/2023 10:29:54 Imaging Results None recorded. Procedure Notes None recorded. Medical Equipment None Reported. Allergies Allergen ID Allergen Name Allergen Category Reaction Reaction Severity Criticality Documentation Date Start Date Code Code System Note Provider Name and Address Organization Details Recorded Time [id number] oxycodone medicatio n Not available Not available Not available 07/19/2023 7804 RxNorm React ion: Dizzi ness, Abdom inal pain, Weakn ess; Not Available [facility] 01:20:52 556691 lactose Not available diarrhea Not available Not available 07/19/2023 6211 RxNorm React ion: Diarr hea; Not Available [facility] 4 01:20:53 Medications Name Sig Start Date [...] mg tablet 09/08 completed Medicati on ID: [id number] B rand Name: dwight hill Send Method: [...] a day 2023 active Medicati on ID: 605111 D uration Value: 30 Presc[address] bed By [...] Multi-Vit schaefer tablet active Medicati on ID: [id number] B rand Name: Daily Multi-Vi tamin Se [...] capsule, extended release active Medicati on ID: 189986 B rand Name: Qsymia S end Method: [...] (7) tablet 09/08 completed Medicati on ID: [id number] B rand Name: Jenise Fe 03/26 () [...] SNOMED-CT Code Diagnosis ICD10 Code Diagnosis Note [id number] JUAQUIN YAÑEZ RN Allergy [address] [place] [address] 11/23/2023 10:27:55 11/23/2023 10:32:23 Perennial allergic rhinitis 670311395 J30.89 18531 JUAQUIN YAÑEZ RN Allergy [address] [place] [address] 12/14/2023 11:23:54 12/14/2023 11:25:34 Perennial allergic rhinitis 599827226 J30.89 40329 SCOTTY GUTHRIE Allergy [address] [place] [address] [address] [place] [address] 12/21/2023 11:30:12 12/21/2023 11:31:30 Perennial allergic rhinitis 121531200 J30.89 Health Concerns Section Related Observation LastModified by Organization Baudilio murphy LastModified Time None Recorded Concern Status LastModified by Organization Details LastModified Time None Recorded Payers Encounter Date Sequence Insurance Name Policy Number Policy Roche Covered Member ID Roche Member ID Guarantor Name 12/21/2023 1 KETAN: [facility] [id number] Shelia Fitzgerald [id number] Shelia Fitzgerald OBGyn Episode No OBEpisode recorded.
--- OUTSIDE RECORDS SUMMARY | 2024-03-16 07:44 | XMS_ITS | Continuity of Care Document ---
Author Organization [place] - [facility], Allergy Address [address] [place] [phone] Assessment Encounter Date Assessment Date Assessment LastModified [...] Time Details Appointments [facility]- Allergy f-up 6mon 2024 09:30A [...] Organization Details Recorded Time Achalasia of esophagus 03993730 Active 2022 Achalasia NOS; Note: Date Diagnosed : 06/23/2022 2:49 PM (K22.0) Not Available [facility] 4 03:10:05 Respirato ry finding 440782143 Active 2022 Feeling of foreign body in throat; Note: Date Diagnosed : 06/23/2022 2:49 PM (R09.89) Not Available [facility] 4 03:10:05 Cardiovas cular finding 255793941 Active 2022 Feeling of foreign body in throat; Note: Date Diagnosed : 06/23/2022 2:49 PM (R09.89) Not Available [facility] 4 03:10:05 Posterior rhinorrhe a 80162083 Active 2022 Postnasal drip; Note: Date Diagnosed : 06/23/2022 2:49 PM (R09.82) Not Available [facility] 4 03:10:04 Allergic rhinitis 02915970 Active 2023 Allergic rhinitis: Due to other [...] Date Diagnosed : 10/16/19 Not Available [facility] 4 01:25:32 Deviated nasal septum 316684976 Active 2022 Deviated nasal septum; Note: Date Diagnosed : 06/23/2022 2:49 PM (J34.2) Not Available [facility] 4 03:10:04 Perennial allergic rhinitis 139057190 Active 2023 KEN CARDENAS, [facility] [address],[facility], [place], [address] , [place] - [facility] 4 10:29:26 Snoring 91464654 Active 2023 Snoring; Note: Date Diagnosed : 04/04/2023 8:51 AM (R06.83) Not Available [facility] 4 03:10:03 Obesity 456680399 Active 2023 Other obesity; Note: Date Diagnosed : 04/04/2023 8:51 AM (E66.8) Not Available [facility] 4 03:10:04 Tinnitus of vascular origin 793554879 Active 2023 Pulsatile tinnitus, right ear; Note: Date Diagnosed : 04/04/2023 8:49 AM (H93.A1) Not Available [facility] 4 03:10:04 Sensorine ural hearing loss 98832104 Active 2023 Sensorine ural hearing loss, unilatera l, right ear, with unrestric jaswant hearing on the contralat eral side; Note: Date Diagnosed : 04/04/2023 9:26 AM (H90.41) Not Available [facility] 4 03:10:05 Abnormal auditory perceptio n 19345136 Active 2023 JOSE VELÁZQUEZ MD [address], [place], [address] , [facility] - [facility] 4 21:49:47 Subjectiv e pulsatile tinnitus of right ear [id number] 86961 Active 2023 JOSE VELÁZQUEZ MD [address],[place] [address], [place], [address] , [facility] - [facility] 4 21:53:02 Abnormal auditory perceptio n 85217421 Active 2023 JOSE VELÁZQUEZ MD [address],[place] [address], [place], [address] , [facility] - [facility] 4 09:14:23 Non-aller gic rhinitis 84014570733 1 Active 2023 Oh hernández [place] - [facility] 4 12:14:47 Seasonal allergic rhinitis 483841666 Active 2023 Oh hern[place] - [facility] 4 12:14:47 Chronic sinusitis 74416879 Active 2023 [place] hern[place] - [facility] 4 12:16:47 Polyp of nasal cavity 070317919 Active 2023 Oh hern[place] - [facility] 4 12:17:03 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 Procedures Surgical History Date Name Laterality Status Provider Name and Address Organization Details Recorded Time 03/13/19 25 Allergy Immunotherapy Injections completed KEN NGHIA [facility] [address], [address], [facility] - [facility] 03/13/2024 11:58:51 03/08/19 25 Allergy Immunotherapy Injections completed KEN CARDENAS [facility] [address] [facility], [place], [address], [facility] - [facility] 03/08/2024 12:13:50 03/01/20 24 Allergy Immunotherapy Injections completed JUAQUIN YAÑEZ RN [address], [place], [address], [place] [facility] 03/01/2024 09:38:10 02/23/20 24 Allergy Immunotherapy Injections completed JUAQUIN YAÑEZ RN [address] [facility] [address], [place], [address], [place] [facility] 02/23/2024 10:01:24 02/14/20 24 Allergy Immunotherapy Injections completed SCOTTY GUTHRIE [address], [place], [address], [place] [facility] 02/14/2024 11:05:56 02/07/20 24 Allergy Immunotherapy Injections completed JUAQUIN YAÑEZ RN [address] [facility] [address] [facility], [place], [address], [place] [facility] 02/07/2024 10:14:23 02/03/20 24 Allergy Immunotherapy Injections completed SCOTTY RICE [address] [facility] [address] [place] [address], [address], [place] [facility] 02/03/2024 09:34:55 01/24/20 24 Allergy Immunotherapy Injections completed JUAQUIN YAÑEZ RN [address] [facility] [address] [place] [address], [address], [place] [facility] 01/24/2024 10:50:50 01/19/20 24 Allergy Immunotherapy Injections completed SCOTTY RICE [address] [facility] [address] [place] [address], [address], [place] [facility] 01/19/2024 13:18:23 01/10/20 24 Allergy Immunotherapy Injections completed SCOTTY RICE [address] [facility] [address], [place], [address], [place] [facility] 01/10/2024 09:42:22 01/03/20 24 Allergy Immunotherapy Injections completed JUAQUIN YAÑEZ RN [address] [facility] [address] [place] [address], [address], [place] [facility] 01/03/2024 11:08:00 12/29/19 24 Allergy Immunotherapy Injections completed VALORIE LUCIO, RMA [address], [place], [address], [place] [facility] 12/29/2023 09:38:54 12/21/19 24 Allergy Immunotherapy Injections completed KEN CARDENAS, RMA [address], [place], [address], [place] [facility] 12/21/2023 11:30:52 12/14/19 24 Allergy Immunotherapy Injections completed JUAQUIN YAÑEZ RN [address] [facility] [address] [facility] [address], [place], [address], [place] [facility] 12/14/2023 11:25:12 11/23/19 24 Allergy Immunotherapy Injections completed KEN CARDENAS, RMA [address] [facility] [address] [facility] [address], [place], [address], [place] [facility] 11/23/2023 10:31:13 11/17/19 24 Allergy Immunotherapy Injections completed KEN CARDENAS, RMA [address] [facility] [address] [facility] [address], [place], [address], [place] [facility] 11/17/2023 09:42:16 11/09/19 24 Allergy Immunotherapy Injections completed JUAQUIN YAÑEZ RN [address] [facility],[address] [place] [address], [address], [place] [facility] 11/09/2023 11:29:05 11/01/19 24 Allergy Immunotherapy Injections completed JUAQUIN YAÑEZ RN [address] [facility],[address], [place], [address], [place] [facility] 11/01/2023 10:43:38 10/27/19 24 Allergy Immunotherapy Injections completed KEN CARDENAS, RMA [address] [facility] [facility] [address], [place], [address], [place] [facility] 10/27/2023 11:59:30 10/19/19 24 Allergy Immunotherapy Injections completed JUAQUIN YAÑEZ RN [address] [facility] [address] [facility] [address], [place], [address], [place] [facility] 10/19/2023 10:27:27 10/19/19 24 Air & Speech Audio with Tymps ([id number], [id number] & [id number]) completed DARRIUS OSMAN [place], CCC-A [address] [facility] [address] [place] [address], [address], [place] [facility] 10/19/2023 09:45:15 10/11/19 24 Allergy Immunotherapy Injections completed SCOTTY RICE [address] [facility] [address] [facility] [address] [place] [address], [address], [place] [facility] 10/11/2023 09:44:13 10/04/19 24 Allergy Immunotherapy Injections completed KEN CARDENAS RMKendell [address] [facility] [address], [address], [place] [facility] 10/04/2023 12:12:37 09/27/19 24 Allergy Immunotherapy Injections completed JUAQUIN YAÑEZ RN [address] [address], [address], [place] [facility] 09/27/2023 10:51:29 09/20/19 24 Allergy Immunotherapy Injections completed JUAQUIN YAÑEZ RN [address] [facility],[address], [address], [place] [facility] 09/20/2023 10:20:29 09/13/19 24 Allergy Immunotherapy Injections completed SCOTTY RICE [address] [facility] [address] [facility] [address] [place] [address], [address], [place] [facility] 09/13/2023 12:56:00 09/05/19 24 Allergy Immunotherapy Injections completed JUAQUIN YAÑEZ RN [address] [facility],[address] [place] [address], [address], [place] [facility] 09/05/2023 09:56:55 08/31/19 24 Allergy Immunotherapy Injections completed SCOTTY RICE [address] [facility] [address] [facility] [address] [place] [address], [address], [place] [facility] 08/31/2023 09:14:03 08/23/19 24 Allergy Immunotherapy Injections completed KEN CARDENAS RMKendell [address] [facility] [facility] [address] [place] [address], [address], [facility] - [facility] 08/23/2023 09:35:11 08/17/19 24 Allergy Immunotherapy Injections completed KEN AGRAWALC, RMA [address] [facility],[address], [address], [facility] - [facility] 08/17/2023 10:13:24 08/10/19 24 Allergy Immunotherapy Injections completed KEN NGHIAC, RMA [address], [address], [facility] - [facility] 08/10/2023 11:14:06 08/03/19 24 Allergy Immunotherapy Injections completed JUAQUIN YAÑEZ RN [address] [address], [address], [facility] - [facility] 08/03/2023 10:25:33 07/27/19 24 Allergy Immunotherapy Injections completed KEN NGHIA, RM [address], [address], [facility] 07/27/2023 10:39:49 07/21/19 24 Allergy Immunotherapy Injections completed [facility] [address], [address], [facility] 07/21/2023 10:29:54 Imaging Results None recorded. Procedure Notes None recorded. Medical Equipment None Reported. Allergies Allergen ID Allergen Name Allergen Category Reaction Reaction Severity Criticality Documentation Date Start Date Code Code System Note Provider Name and Address Organization Details Recorded Time [id number] oxycodone medicatio n Not available Not available Not available 07/19/2023 7804 RxNorm React ion: Dizzi ness, Abdom inal pain, Weakn ess; Not Available [facility] 4 01:20:52 751184 lactose Not available diarrhea Not available Not available 07/19/2023 6211 RxNorm React ion: Diarr hea; Not Available [facility] 4 01:20:53 Medications Name Sig Start Date [...] mg tablet 09/08 completed Medicati on ID: [id number] Tyesha narayanan Name: dwight hill Send Method: [...] a day 2023 active Medicati on ID: [id number] D uration Value: 30 Prescri bed By [...] Multi-Vit schaefer tablet active Medicati on ID: 391573 B rand Name: Daily Multi-Vi tamin Se [...] capsule, extended release active Medicati on ID: [id number] B rand Name: Qsymia S end Method: [...] (7) tablet 09/08 completed Medicati on ID: 162458 B rand Name: Jenise Wright 03/26 (28) Sen d Method: E-Prescr ibed Sub s Allowed: subs OK Medic ationGen ericName : Jenise Wright 03/26 () Not Available Not Available Not [...] SNOMED-CT Code Diagnosis ICD10 Code Diagnosis Note [id number] VALORIE LUCIO, [facility] Allergy [address] [place] [address], [address] [facility] [place] [address] 02/03/2024 09:25:49 02/03/2024 09:35:31 Perennial allergic rhinitis [id number] J30.89 [id number] JUAQUIN YAÑEZ RN Allergy [address] [place] [address] [address] [facility] [place] [address] 02/07/2024 10:13:39 02/07/2024 10:14:50 Perennial allergic rhinitis 721431851 J30.89 [id number] [facility], [facility] Allergy [address] [place] [address], [address] [facility] [place] [address] 02/14/2024 11:05:15 02/14/2024 11:06:25 Perennial allergic rhinitis 720384607 J30.89 [id number] JUAQUIN YAÑEZ RN Allergy [address] [place] [address],[place] [address] [facility] [place] [address] 02/23/2024 10:00:14 02/23/2024 10:01:52 Perennial allergic rhinitis 263383373 J30.89 [id number] JUAQUIN YAÑEZ RN Allergy [address] [place] [address], [address] [facility] [place] [address] 03/01/2024 09:37:35 03/01/2024 09:38:44 Perennial allergic rhinitis 823237784 J30.89 Health Concerns Section Related Observation LastModified by Organization Detai ls LastModified Time None Recorded Concern Status LastModified by Organization Details LastModified Time None Recorded Payers Encounter Date Sequence Insurance Name Policy Number Policy Roche Covered Member ID Roche Member ID Guarantor Name 03/01/2024 1 ORALMI: [facility] [id number] Shelia Fitzgerald [id number] Shelia Fitzgerald OBGyn Episode No OBEpisode recorded.
--- OUTSIDE RECORDS SUMMARY | 2024-03-16 07:44 | XMS_ITS | Continuity of Care Document ---
Author Organization [place] - [facility], Allergy Address [address] [address] Assessment Encounter Date Assessment Date Assessment LastModified by Organization Details LastModified Time 03/13/2024 03/13/2024 Visit With: Kiah Sales Use of Antihistamine s: No If yes: [...] Organization Details Recorded Time Achalasia of esophagus [id number] Active 2022 Achalasia NOS; Note: Date Diagnosed : 06/23/2022 2:49 PM (K22.0) Not Available [facility] 4 03:10:05 Respirato ry finding 897356940 Active 2022 Feeling of foreign body in throat; Note: Date Diagnosed : 06/23/2022 2:49 PM (R09.89) Not Available [facility] 4 03:10:05 Cardiovas cular finding 572898784 Active 2022 Feeling of foreign body in throat; Note: Date Diagnosed : 06/23/2022 2:49 PM (R09.89) Not Available [facility] 4 03:10:05 Posterior rhinorrhe a 52661347 Active 2022 Postnasal drip; Note: Date Diagnosed : 06/23/2022 2:49 PM (R09.82) Not Available [facility] 4 03:10:04 Allergic rhinitis 38749799 Active 2023 Allergic rhinitis: Due to other [...] Note: Date Diagnosed : 10/16/19 Not Available [facility] 4 01:25:32 Deviated nasal septum 175503478 Active 2022 Deviated nasal septum; Note: Date Diagnosed : 06/23/2022 2:49 PM (J34.2) Not Available [facility] 4 03:10:04 Perennial allergic rhinitis 747850760 Active 2023 KEN CARDENAS, A 100 [facility] 100, [place], [address] , [facility] - [facility] 4 10:29:26 Snoring 08642724 Active 2023 Snoring; Note: Date Diagnosed : 04/04/2023 8:51 AM (R06.83) Not Available [facility] 4 03:10:03 Obesity 474687715 Active 2023 Other obesity; Note: Date Diagnosed : 04/04/2023 8:51 AM (E66.8) Not Available [facility] 4 03:10:04 Tinnitus of vascular origin 162170617 Active 2023 Pulsatile tinnitus, right ear; Note: Date Diagnosed : 04/04/2023 8:49 AM (H93.A1) Not Available [facility] 4 03:10:04 Sensorine ural hearing loss 90722736 Active 2023 Sensorine ural hearing loss, unilatera l, right ear, with unrestric jaswant hearing on the contralat eral side; Note: Date Diagnosed : 04/04/2023 9:26 AM (H90.41) Not Available [facility] 4 03:10:05 Abnormal auditory perceptio n 64501971 Active 2023 JOSE VELÁZQUEZ MD [facility] [place],[address], [place], [address] , [place] - [facility] 4 21:49:47 Subjectiv e pulsatile tinnitus of right ear [id number] 86611 Active 2023 JOSE VELÁZQUEZ MD 100 [facility],[place] [address], [place], [address] , [facility] - [facility] 4 21:53:02 Abnormal auditory perceptio n 37641225 Active 2023 JOSE VELÁZQUEZ MD 100 [facility] 100, [place], [address] , [facility] - [facility] 4 09:14:23 Non-aller gic rhinitis 44499084185 1 Active 2023 Oh hernández [place] - [facility] 4 12:14:47 Seasonal allergic rhinitis 185224423 Active 2023 Oh hernández [place] - [facility] 4 12:14:47 Chronic sinusitis 58941209 Active 2023 Oh hernández [place] - [facility] 4 12:16:47 Polyp of nasal cavity 416251043 Active 2023 Oh hernández [place] - [facility] 4 12:17:03 Polypoid sinus degenerat ion 52449604 Active 2023 Oh hernández [place] - [facility] 4 12:17:03 Problem Notes None recorded. Procedures Surgical History Date Name Laterality Status Provider Name and Address Organization Details Recorded Time 03/13/19 25 Allergy Immunotherapy Injections completed KEN NGHIA, [facility] 100 [facility],[address], [address], [place] - [facility] 03/13/2024 11:58:51 03/08/19 25 Allergy Immunotherapy Injections completed KEN AGRAWAL, RM [facility] [place], [place], [address], [facility] - [facility] 03/08/2024 12:13:50 03/01/20 24 Allergy Immunotherapy Injections completed JUAQUIN YAÑEZ RN [address] [address], [place], [address], [place] [facility] 03/01/2024 09:38:10 02/23/20 24 Allergy Immunotherapy Injections completed JUAQUIN YAÑEZ RN [address] [facility],[place] [address], [place], [address], [place] [facility] 02/23/2024 10:01:24 02/14/20 24 Allergy Immunotherapy Injections completed SCOTTY GUTHRIE [address] [address], [place], [address], [place] [facility] 02/14/2024 11:05:56 02/07/20 24 Allergy Immunotherapy Injections completed JUAQUIN YAÑEZ RN 100 [facility] [place] [address] [place] [address], [address], [place] [facility] 02/07/2024 10:14:23 02/03/20 24 Allergy Immunotherapy Injections completed SCOTTY RICE [address] [facility],[place] [address] [place] [address], [address], [place] [facility] 02/03/2024 09:34:55 01/24/20 24 Allergy Immunotherapy Injections completed JUAQUIN YAÑEZ RN 100 [facility],[place] [address] [place] [address], [address], [place] [facility] 01/24/2024 10:50:50 01/19/20 24 Allergy Immunotherapy Injections completed SCOTTY RICE [address] [facility] [address],[place] [address] [place] [address], [address], [place] [facility] 01/19/2024 13:18:23 01/10/20 24 Allergy Immunotherapy Injections completed SCOTTY RICE [address] [facility] [address],[place] [address] [place] [address], [address], [place] [facility] 01/10/2024 09:42:22 01/03/20 24 Allergy Immunotherapy Injections completed JUAQUIN YAÑEZ RN [address] [facility] [address],[place] [address] [place] [address], [address], [place] [facility] 01/03/2024 11:08:00 12/29/19 24 Allergy Immunotherapy Injections completed SCOTTY RICE [address], [place], [address], [place] [facility] 12/29/2023 09:38:54 12/21/19 24 Allergy Immunotherapy Injections completed KEN CARDENAS, RMA [address], [place], [address], [place] [facility] 12/21/2023 11:30:52 12/14/19 24 Allergy Immunotherapy Injections completed JUAQUIN YAÑEZ RN [address] [facility] [address], [place], [address], [place] [facility] 12/14/2023 11:25:12 11/23/19 24 Allergy Immunotherapy Injections completed KEN CARDENAS, RMKendell [address] [facility] [address], [place], [address], [place] [facility] 11/23/2023 10:31:13 11/17/19 24 Allergy Immunotherapy Injections completed KEN CARDENAS RMKendell 100 [facility] [place] [address] [place] [address], [address], [place] [facility] 11/17/2023 09:42:16 11/09/19 24 Allergy Immunotherapy Injections completed JUAQUIN YAÑEZ RN 100 [facility] [place] [address] [place] [address], [address], [place] [facility] 11/09/2023 11:29:05 11/01/19 24 Allergy Immunotherapy Injections completed JUAQUIN YAÑEZ RN 100 [facility] [place] [address] [place] [address], [address], [place] [facility] 11/01/2023 10:43:38 10/27/19 24 Allergy Immunotherapy Injections completed KEN CARDENAS RMA [address] [facility] [address], [place], [address], [place] [facility] 10/27/2023 11:59:30 10/19/19 24 Allergy Immunotherapy Injections completed JUAQUIN YAÑEZ RN [address] [facility] [address],[place] [address] [place] [address], [address], [place] [facility] 10/19/2023 10:27:27 10/19/19 24 Air & Speech Audio with Tymps (07024, 78460 & 91395) completed DARRIUS OSMAN [place], CCC-A [address] [facility] [address],[place] [address] [place] [address], [address], [place] [facility] 10/19/2023 09:45:15 10/11/19 24 Allergy Immunotherapy Injections completed SCOTTY RICE [address] [facility] [address],[place] [address] [place] [address], [address], [place] [facility] 10/11/2023 09:44:13 10/04/19 24 Allergy Immunotherapy Injections completed KEN CARDENAS RMKendell [address] [facility] [address],[place] [address] [place] [address], [address], [place] [facility] 10/04/2023 12:12:37 09/27/19 24 Allergy Immunotherapy Injections completed JUAQUIN YAÑEZ RN 100 [facility],[address], [address], [place] [facility] 09/27/2023 10:51:29 09/20/19 24 Allergy Immunotherapy Injections completed JUAQUIN YAÑEZ RN 100 [facility] [address],[place] [address] [place] [address], [address], [place] [facility] 09/20/2023 10:20:29 09/13/19 24 Allergy Immunotherapy Injections completed SCOTTY RICE [address] [facility] [address],[place] [address] [place] [address], [address], [place] [facility] 09/13/2023 12:56:00 09/05/19 24 Allergy Immunotherapy Injections completed JUAQUIN YAÑEZ RN [address] [facility] [address],[place] [address] [place] [address], [address], [place] [facility] 09/05/2023 09:56:55 08/31/19 24 Allergy Immunotherapy Injections completed SCOTTY RICE [address] [facility] [address],[place] [address] [place] [address], [address], [place] [facility] 08/31/2023 09:14:03 08/23/19 24 Allergy Immunotherapy Injections completed KEN CARDENAS RMKendell [address] [facility] [address],[place] [address] [place] [address], [address], [place] - [facility] 08/23/2023 09:35:11 08/17/19 24 Allergy Immunotherapy Injections completed KEN AGRAWALC, RMA 100 [facility] [place],[address], [address], [facility] - [facility] 08/17/2023 10:13:24 08/10/19 24 Allergy Immunotherapy Injections completed KEN RASTAZEC, RMA 100 [facility] [place],[address], [address], [facility] - [facility] 08/10/2023 11:14:06 08/03/19 24 Allergy Immunotherapy Injections completed JUAQUIN YAÑEZ RN 100 [facility],[address], [address], [facility] - [facility] 08/03/2023 10:25:33 07/27/19 24 Allergy Immunotherapy Injections completed KNE MAGDALENOZEC, RMA 100 [facility],[address], [address], [facility] - [facility] 07/27/2023 10:39:49 07/21/19 24 Allergy Immunotherapy Injections completed KEN NGHIAC, RMA 100 [facility] [place],[address], [address], [facility] - [facility] 07/21/2023 10:29:54 Imaging Results None recorded. Procedure Notes None recorded. Medical Equipment None Reported. Allergies Allergen ID Allergen Name Allergen Category Reaction Reaction Severity Criticality Documentation Date Start Date Code Code System Note Provider Name and Address Organization Details Recorded Time 437344 oxycodone medicatio n Not available Not available Not available 07/19/2023 7804 RxNorm React ion: Dizzi ness, Abdom inal pain, Weakn ess; Not Available [facility] 4 01:20:52 675980 lactose Not available diarrhea Not available Not available 07/19/2023 6211 RxNorm React ion: Diarr hea; Not Available [facility] 4 01:20:53 Medications Name Sig Start Date [...] mg tablet 09/08 completed Medicati on ID: [id number] Tyesha narayanan Name: dwight hill Send Method: [...] a day 2023 active Medicati on ID: [id number] D uration Value: 30 Prescri bed By [...] Multi-Vit schaefer tablet active Medicati on ID: [id number] B rand Name: Daily Multi-Vi tamin Se [...] capsule, extended release active Medicati on ID: [id number] B rand Name: Qsymia S end Method: [...] (7) tablet 09/08 completed Medicati on ID: [id number] B rand Name: Jenise Wright 03/26 () [...] SNOMED-CT Code Diagnosis ICD10 Code Diagnosis Note [id number] [facility] All[facility] [address] [place] [address],[place] [place] 100 [place] [address] 02/14/2024 11:05:15 02/14/2024 11:06:25 Perennial allergic rhinitis [id number] J30.89 [id number] JUAQIUN YAÑEZ RN Allergy [address] [place] [address],[place] [address] [place] [address] 02/23/2024 10:00:14 02/23/2024 10:01:52 Perennial allergic rhinitis 987688746 J30.89 [id number] JUAQUIN YAÑEZ RN Allergy [address] [place] [address],[place] [address] [place] [address] 03/01/2024 09:37:35 03/01/2024 09:38:44 Perennial allergic rhinitis 501278419 J30.89 [id number] [facility] Allergy [address] [place] [address],[place] [address] [address] [place] [address] 03/08/2024 12:13:01 03/08/2024 12:14:59 Perennial allergic rhinitis 023056975 J30.89 [id number] [facility] All[facility] [address] [place] [address],[place] [address] [place] [address] 03/13/2024 11:57:35 03/13/2024 11:59:25 Perennial allergic rhinitis 675820245 J30.89 Health Concerns Section Related Observation LastModified by Organization Detai ls LastModified Time None Recorded Concern Status LastModified by Organization Details LastModified Time None Recorded Payers Encounter Date Sequence Insurance Name Policy Number Policy Roche Covered Member ID Roche Member ID Guarantor Name 03/13/2024 1 KETAN: [facility] [id number] Shelia Fitzgerald [id number] Shelia Fitzgerald OBGyn Episode No OBEpisode recorded.
--- OUTSIDE RECORDS SUMMARY | 2024-03-16 07:44 | XMS_ITS | Continuity of Care Document ---
Author Organization [place] [facility], Allergy Address [address] [address] Assessment Encounter Date Assessment Date Assessment LastModified by Organization Details LastModified Time 12/29/2023 12/29/2023 Administered By: Kiah Sales Use of Antihistamines: No If yes: Vial Test Change in medications: No If yes ?? Increase in asthma symptoms If yes, inhaler use: Reaction to last injections: No If yes: ?? Allergy Symptoms: Other: ?? Missed 1 week Dose Notes:?? [id number] Not available 12/29/2023 09:38:44 Plan of Treatment Reminders Order Date Submit Date Provider Last Modified By Organization Details Last Modified Time Details Appointments [facility]- Allergy f-up 6mon 2024 09:30A [...] observ ation record ed. CE [facility] [place] [address] [facility] [address], [place], [address], 12/15/2023 13:44:07 Result Notes None recorded. Problems Name Problem SNOMED Code Status Onset Date Resolution Date Notes Provider Name and Address Organization Details Recorded Time Achalasia of esophagus 15963695 Active 2022 Achalasia NOS; Note: Date Diagnosed : 06/23/2022 2:49 PM (K22.0) Not Available [facility] 4 03:10:05 Respirato ry finding 590939725 Active 2022 Feeling of foreign body in throat; Note: Date Diagnosed : 06/23/2022 2:49 PM (R09.89) Not Available [facility] 4 03:10:05 Cardiovas cular finding 044639806 Active 2022 Feeling of foreign body in throat; Note: Date Diagnosed : 06/23/2022 2:49 PM (R09.89) Not Available [facility] 4 03:10:05 Posterior rhinorrhe a 65945613 Active 2022 Postnasal drip; Note: Date Diagnosed : 06/23/2022 2:49 PM (R09.82) Not Available [facility] 4 03:10:04 Allergic rhinitis 89587526 Active 2023 Allergic rhinitis: Due to other [...] Note: Date Diagnosed : 10/16/19 Not Available [facility] 4 01:25:32 Deviated nasal septum 602596820 Active 2022 Deviated nasal septum; Note: Date Diagnosed : 06/23/2022 2:49 PM (J34.2) Not Available [facility] 4 03:10:04 Perennial allergic rhinitis 756122560 Active [address],[place] [address], [place], [address] , [facility] - [facility] 4 10:29:26 Snoring 63566858 Active 2023 Snoring; Note: Date Diagnosed : 04/04/2023 8:51 AM (R06.83) Not Available [facility] 4 03:10:03 Obesity 518314674 Active 2023 Other obesity; Note: Date Diagnosed : 04/04/2023 8:51 AM (E66.8) Not Available [facility] 4 03:10:04 Tinnitus of vascular origin 736795982 Active 2023 Pulsatile tinnitus, right ear; Note: Date Diagnosed : 04/04/2023 8:49 AM (H93.A1) Not Available [facility] 4 03:10:04 Sensorine ural hearing loss 85657025 Active 2023 Sensorine ural hearing loss, unilatera l, right ear, with unrestric jaswant hearing on the contralat eral side; Note: Date Diagnosed : 04/04/2023 9:26 AM (H90.41) Not Available [facility] 4 03:10:05 Abnormal auditory perceptio n 46277039 Active 2023 JOSE VELÁZQUEZ MD [address], [place], [address] , [place] [facility] 4 21:49:47 Subjectiv e pulsatile tinnitus of right ear [id number] 55420 Active 2023 JOSE VELÁZQUEZ MD [address] [facility] [address], [place], [address] , [place] [facility] 4 21:53:02 Abnormal auditory perceptio n 23219165 Active 2023 JOSE VELÁZQUEZ MD [address] [facility] [address] [address] [place],[address], [place], [address] , [place]EF[place] - [facility] [place] [facility] 4 09:14:23 Non-aller gic rhinitis 73064709585 1 Active 2023 Oh hernández [place] - [facility] [place] 4 12:14:47 Seasonal allergic rhinitis 647296774 Active 2023 Oh hernández [place] - [facility] [place] [facility] 4 12:14:47 Chronic sinusitis 62478776 Active 2023 Oh hernández [place] - [facility] 4 12:16:47 Polyp of nasal cavity 678664927 Active 2023 Oh hernández [place] - [facility] [place] 4 12:17:03 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 Procedures Surgical History Date Name Laterality Status Provider Name and Address Organization Details Recorded Time 03/13/19 25 Allergy Immunotherapy Injections completed KEN CARDENAS Kendell [address], [place], [address], [place] [facility] 03/13/2024 11:58:51 03/08/19 25 Allergy Immunotherapy Injections completed SCOTTY GUTHRIE [address], [place], [address], [place] [facility] [place] [facility] 03/08/2024 12:13:50 03/01/20 24 Allergy Immunotherapy Injections completed JUAQUIN YAÑEZ RN [address] [facility] [address], [place], [address], [place] [facility] [place] [facility] 03/01/2024 09:38:10 02/23/20 24 Allergy Immunotherapy Injections completed JUAQUIN YAÑEZ RN 100 [facility] [place],[address] [place] [address], [address], [place] [facility] [place] [facility] 02/23/2024 10:01:24 02/14/20 24 Allergy Immunotherapy Injections completed SCOTTY GUTHRIE [address] [facility] [address] [place] [address], [address], [place] [facility] [place] 02/14/2024 11:05:56 02/07/20 24 Allergy Immunotherapy Injections completed JUAQUIN YAÑEZ RN 100 [facility] [place],[address] [place] [address], [address], [place] [facility] [place] 02/07/2024 10:14:23 02/03/20 24 Allergy Immunotherapy Injections completed SCOTTY RICE [address] [facility] [address] [address] [place] [address], [address], [place] [facility] [place] 02/03/2024 09:34:55 01/24/20 24 Allergy Immunotherapy Injections completed JUAQUIN YAÑEZ RN 100 [facility] [address] [place] [address], [address], [place] [facility] [place] 01/24/2024 10:50:50 01/19/20 24 Allergy Immunotherapy Injections completed SCOTTY RICE [address] [facility] [address] [address], [place], [address], [place] [facility] [place] 01/19/2024 13:18:23 01/10/20 24 Allergy Immunotherapy Injections completed SCOTTY RICE [address] [facility] [address] [address], [place], [address], [place] [facility] [place] 01/10/2024 09:42:22 01/03/20 24 Allergy Immunotherapy Injections completed JUAQUIN YAÑEZ RN 100 [facility] [place],[address] [place] [address], [address], [place] [facility] [place] 01/03/2024 11:08:00 12/29/19 24 Allergy Immunotherapy Injections completed SCOTTY RICE [address] [facility] [address], [place], [address], [place] [facility] [place] 12/29/2023 09:38:54 12/21/19 24 Allergy Immunotherapy Injections completed KEN CARDENAS RMKendell [address] [facility] [address] [place] [address], [address], [place] [facility] [place] 12/21/2023 11:30:52 12/14/19 24 Allergy Immunotherapy Injections completed JUAQUIN YAÑEZ RN 100 [facility],[address] [place] [address], [address], [place] [facility] [place] 12/14/2023 11:25:12 11/23/19 24 Allergy Immunotherapy Injections completed KEN CARDENAS RMA [address] [facility] [place],[address] [place] [address], [address], [place] [facility] [place] 11/23/2023 10:31:13 11/17/19 24 Allergy Immunotherapy Injections completed KEN CARDENAS RMA [address] [facility] [address] [place] [address], [address], [place] [facility] [place] 11/17/2023 09:42:16 11/09/19 24 Allergy Immunotherapy Injections completed JUAQUIN YAÑEZ RN [address] [facility] [place],[address] [place] [address], [address], [place] [facility] [place] 11/09/2023 11:29:05 11/01/19 24 Allergy Immunotherapy Injections completed JUAQUIN YAÑEZ RN [address] [facility] [address], [place], [address], [place] [facility] [place] 11/01/2023 10:43:38 10/27/19 24 Allergy Immunotherapy Injections completed KEN CARDENAS RMA [address] [facility] [address] [place] [address], [address], [place] [facility] [place] 10/27/2023 11:59:30 10/19/19 24 Allergy Immunotherapy Injections completed JUAQUIN YAÑEZ RN 100 [facility] [place],[address], [address], [place] [facility] [place] 10/19/2023 10:27:27 10/19/19 24 Air & Speech Audio with Tymps ([id number], 88596 & 92065) completed DARRIUS OSMAN MA, CCC-A [address] [facility],[address], [address], [place] [facility] [place] 10/19/2023 09:45:15 10/11/19 24 Allergy Immunotherapy Injections completed SCOTTY RICE 100 [facility],[address], [address], [place] [facility] [place] 10/11/2023 09:44:13 10/04/19 24 Allergy Immunotherapy Injections completed KEN CARDENAS [place] 100 [facility],[address], [address], [place] [facility] [place] 10/04/2023 12:12:37 09/27/19 24 Allergy Immunotherapy Injections completed JUAQUIN YAÑEZ RN 100 [facility],[address], [address], [place] [facility] [place] 09/27/2023 10:51:29 09/20/19 24 Allergy Immunotherapy Injections completed JUAQUIN YAÑEZ RN 100 [facility],[address], [address], [place] [facility] [place] 09/20/2023 10:20:29 09/13/19 24 Allergy Immunotherapy Injections completed SCOTTY RICE 100 [facility],[address], [address], [place] [facility] [place] 09/13/2023 12:56:00 09/05/19 24 Allergy Immunotherapy Injections completed JUAQUIN YAÑEZ RN 100 [facility],[address], [address], [place] [facility] [place] 09/05/2023 09:56:55 08/31/19 24 Allergy Immunotherapy Injections completed KIAH SALES, RMA [address], [place], [address], [facility] - [facility] 08/31/2023 09:14:03 08/23/19 24 Allergy Immunotherapy Injections completed KEN AGRAWALC, RMA [address] [place] [address], [address], [facility] - [facility] 08/23/2023 09:35:11 08/17/19 24 Allergy Immunotherapy Injections completed KEN KORZEC, RMA [address], [place], [address], [facility] - [facility] 08/17/2023 10:13:24 08/10/19 24 Allergy Immunotherapy Injections completed KEN AGRAWALC, RMA [address] [facility] [address] [address], [place], [address], [facility] - [facility] 08/10/2023 11:14:06 08/03/19 24 Allergy Immunotherapy Injections completed JUAQUIN YAÑEZ RN [address] [facility] [address] [place] [address], [address], [facility] - [facility] 08/03/2023 10:25:33 07/27/19 24 Allergy Immunotherapy Injections completed KEN MAGDALENOLEANAC, RMA [address] [facility] [address] [address] [place] [address], [address], [facility] - [facility] 07/27/2023 10:39:49 07/21/19 24 Allergy Immunotherapy Injections completed KEN RASTAZEC, RMA [address] [facility] [address], [place], [address], [facility] - [facility] 07/21/2023 10:29:54 Imaging Results None recorded. Procedure Notes None recorded. Medical Equipment None Reported. Allergies Allergen ID Allergen Name Allergen Category Reaction Reaction Severity Criticality Documentation Date Start Date Code Code System Note Provider Name and Address Organization Details Recorded Time 528286 oxycodone medicatio n Not available Not available Not available 07/19/2023 7804 RxNorm React ion: Dizzi ness, Abdom inal pain, Weakn ess; Not Available [facility] 01:20:52 319515 lactose Not available diarrhea Not available Not available 07/19/2023 6211 RxNorm React ion: Diarr hea; Not Available [facility] 01:20:53 Medications Name Sig Start Date Stop [...] mg tablet 09/08 completed Medicati on ID: 360560 B rand Name: dwight hill Send Method: [...] a day 2023 active Medicati on ID: 264686 D uration Value: 30 Pres[address] bed By [...] Multi-Vit schaefer tablet active Medicati on ID: 950396 B rand Name: Daily Multi-Vi tamin Se [...] capsule, extended release active Medicati on ID: 027103 B rand Name: Qsymia S end Method: [...] (7) tablet 09/08 completed Medicati on ID: 735066 B rand Name: Jenise Fe 03/26 () [...] SNOMED-CT Code Diagnosis ICD10 Code Diagnosis Note [id number] JUAQUIN YAÑEZ RN Allergy [address] [place] [address] 12/14/2023 11:23:54 12/14/2023 11:25:34 Perennial allergic rhinitis [id number] J30.89 [id number] KEN CARDENAS [facility] Allergy [address] [place] [address] 12/21/2023 11:30:12 12/21/2023 11:31:30 Perennial allergic rhinitis 360771442 J30.89 45761 KIAH SALES [facility] Allergy [address] [place] [address] 12/29/2023 09:38:10 12/29/2023 09:40:16 Perennial allergic rhinitis 275701183 J30.89 Health Concerns Section Related Observation LastModified by Organization Detai ls LastModified Time None Recorded Concern Status LastModified by Organization Details LastModified Time None Recorded Payers Encounter Date Sequence Insurance Name Policy Number Policy Roche Covered Member ID Roche Member ID Guarantor Name 12/29/2023 1 KETAN: [facility] [id number] Shelia Fitzgerald [id number] Shelia Fitzgerald [employer] Episode No OBEpisode recorded.
--- OUTSIDE RECORDS SUMMARY | 2024-03-16 07:44 | XMS_ITS | Continuity of Care Document ---
Author Organization [place] - [facility], Allergy Address [address] [address] Assessment Encounter Date Assessment Date Assessment LastModified by Organization Details LastModified Time 03/08/2024 03/08/2024 Visit With: Kiah Sales Use of Antihistamine s: No If yes: Vial Test Change in medications: No If yes ?? Increase in asthma symptoms If yes, inhaler use: Reaction to last injections: No If yes: ?? Allergy Symptoms: Other: ?? Missed: Dose Aware of Vial Test Notes:?? [email or web address] Not available 03/08/2024 12:14:03 Plan of Treatment Reminders Order Date Submit Date Provider Last Modified By Organization Details Last Modified Time Details Appointments [facility]- Allergy f-up 6mon 2024 09:30A M JOSE [...] Organization Details Recorded Time Achalasia of esophagus 53526945 Active 2022 Achalasia NOS; Note: Date Diagnosed : 06/23/2022 2:49 PM (K22.0) Not Available [facility] 4 03:10:05 Respirato ry finding 642558210 Active 2022 Feeling of foreign body in throat; Note: Date Diagnosed : 06/23/2022 2:49 PM (R09.89) Not Available [facility] 4 03:10:05 Cardiovas cular finding 762300487 Active 2022 Feeling of foreign body in throat; Note: Date Diagnosed : 06/23/2022 2:49 PM (R09.89) Not Available [facility] 4 03:10:05 Posterior rhinorrhe a 19100282 Active 2022 Postnasal drip; Note: Date Diagnosed : 06/23/2022 2:49 PM (R09.82) Not Available [facility] 4 03:10:04 Allergic rhinitis 79097866 Active 2023 Allergic rhinitis: Due to other [...] Date Diagnosed : 10/16/19 Not Available [facility] 4 01:25:32 Deviated nasal septum 795406177 Active 2022 Deviated nasal septum; Note: Date Diagnosed : 06/23/2022 2:49 PM (J34.2) Not Available [facility] 4 03:10:04 Perennial allergic rhinitis 732318163 Active 2023 KEN CARDENAS, A 100 [facility] 100, [place], [address] , [facility] - [facility] 4 10:29:26 Snoring 23451290 Active 2023 Snoring; Note: Date Diagnosed : 04/04/2023 8:51 AM (R06.83) Not Available [facility] 4 03:10:03 Obesity 044062522 Active 2023 Other obesity; Note: Date Diagnosed : 04/04/2023 8:51 AM (E66.8) Not Available [facility] 4 03:10:04 Tinnitus of vascular origin 257862407 Active 2023 Pulsatile tinnitus, right ear; Note: Date Diagnosed : 04/04/2023 8:49 AM (H93.A1) Not Available [facility] 4 03:10:04 Sensorine ural hearing loss 40649250 Active 2023 Sensorine ural hearing loss, unilatera l, right ear, with unrestric jaswant hearing on the contralat eral side; Note: Date Diagnosed : 04/04/2023 9:26 AM (H90.41) Not Available [facility] 4 03:10:05 Abnormal auditory perceptio n 13144021 Active 2023 JOSE EVLÁZQUEZ MD [address] [facility],[address], [place], [address] , [place] - [facility] 4 21:49:47 Subjectiv e pulsatile tinnitus of right ear [id number] 60987 Active 2023 JOSE VELÁZQUEZ MD 100 [facility],[place] [address], [place], [address] , [facility] - [facility] 4 21:53:02 Abnormal auditory perceptio n 37928705 Active 2023 JOSE VELÁZQUEZ MD 100 [facility] 100, [place], [address] , [facility] - [facility] 4 09:14:23 Non-aller gic rhinitis 86719194827 1 Active 2023 Oh hernández [place] - [facility] 4 12:14:47 Seasonal allergic rhinitis 442702903 Active 2023 Oh hernández [place] - [facility] 4 12:14:47 Chronic sinusitis 92486942 Active 2023 Oh hernández [place] - [facility] 4 12:16:47 Polyp of nasal cavity 617103027 Active 2023 Oh hernández [place] - [facility] 4 12:17:03 Polypoid sinus degenerat ion 80731812 Active 2023 Oh hernández [place] - [facility] 4 12:17:03 Problem Notes None recorded. Procedures Surgical History Date Name Laterality Status Provider Name and Address Organization Details Recorded Time 03/13/19 25 Allergy Immunotherapy Injections completed KEN NGHIA, [facility] 100 [facility],[address], [address], [place] - [facility] 03/13/2024 11:58:51 03/08/19 25 Allergy Immunotherapy Injections completed KEN AGRAWAL, RM [address] [facility],[address], [place], [address], [facility] - [facility] 03/08/2024 12:13:50 03/01/20 24 Allergy Immunotherapy Injections completed JUAQUIN YAÑEZ RN [address],[place] [address], [place], [address], [place] [facility] 03/01/2024 09:38:10 02/23/20 24 Allergy Immunotherapy Injections completed JUAQUIN YAÑEZ RN [address],[place] [address], [place], [address], [place] [facility] 02/23/2024 10:01:24 02/14/20 24 Allergy Immunotherapy Injections completed SCOTTY GUTHRIE [address],[place] [address], [place], [address], [place] [facility] 02/14/2024 11:05:56 02/07/20 24 Allergy Immunotherapy Injections completed JUAQUIN YAÑEZ RN [address] [facility],[place] [address] [place] [address], [address], [place] [facility] 02/07/2024 10:14:23 02/03/20 24 Allergy Immunotherapy Injections completed SOCTTY RICE [address],[place] [address] [place] [address], [address], [place] [facility] 02/03/2024 09:34:55 01/24/20 24 Allergy Immunotherapy Injections completed JUAQUIN YAÑEZ RN 100 [facility],[place] [address] [place] [address], [address], [place] [facility] 01/24/2024 10:50:50 01/19/20 24 Allergy Immunotherapy Injections completed SCOTTY RICE [address],[place] [address] [place] [address], [address], [place] [facility] 01/19/2024 13:18:23 01/10/20 24 Allergy Immunotherapy Injections completed SCOTTY RICE [address] [facility] [address],[place] [address] [place] [address], [address], [place] [facility] 01/10/2024 09:42:22 01/03/20 24 Allergy Immunotherapy Injections completed JUAQUIN YAÑEZ RN [address] [facility] [address],[place] [address] [place] [address], [address], [place] [facility] 01/03/2024 11:08:00 12/29/19 24 Allergy Immunotherapy Injections completed SCOTTY RICE [address], [place], [address], [place] [facility] 12/29/2023 09:38:54 12/21/19 24 Allergy Immunotherapy Injections completed KEN CARDENAS, RMA [address], [place], [address], [place] [facility] 12/21/2023 11:30:52 12/14/19 24 Allergy Immunotherapy Injections completed JUAQUIN YAÑEZ RN [address] [facility] [address], [place], [address], [place] [facility] 12/14/2023 11:25:12 11/23/19 24 Allergy Immunotherapy Injections completed KEN CARDENAS, RMKendell [address], [place], [address], [place] [facility] 11/23/2023 10:31:13 11/17/19 24 Allergy Immunotherapy Injections completed KEN CARDENAS RMKendell [address] [facility],[place] [address] [place] [address], [address], [place] [facility] 11/17/2023 09:42:16 11/09/19 24 Allergy Immunotherapy Injections completed JUAQUIN YAÑEZ RN [address] [facility],[place] [address] [place] [address], [address], [place] [facility] 11/09/2023 11:29:05 11/01/19 24 Allergy Immunotherapy Injections completed JUAQUIN YAÑEZ RN [address] [facility],[place] [address] [place] [address], [address], [place] [facility] 11/01/2023 10:43:38 10/27/19 24 Allergy Immunotherapy Injections completed KEN CARDENAS RMA [address] [facility] [address], [place], [address], [place] [facility] 10/27/2023 11:59:30 10/19/19 24 Allergy Immunotherapy Injections completed JUAQUIN YAÑEZ RN [address] [facility] [address],[place] [address] [place] [address], [address], [place] [facility] 10/19/2023 10:27:27 10/19/19 24 Air & Speech Audio with Tymps (74814, 26986 & 33997) completed DARRIUS OSMAN [place], CCC-A [address] [facility] [address],[place] [address] [place] [address], [address], [place] [facility] 10/19/2023 09:45:15 10/11/19 24 Allergy Immunotherapy Injections completed SCOTTY RICE [address] [facility] [address],[place] [address] [place] [address], [address], [place] [facility] 10/11/2023 09:44:13 10/04/19 24 Allergy Immunotherapy Injections completed KEN CARDENAS RMKendell [address] [facility] [address],[place] [address] [place] [address], [address], [place] [facility] 10/04/2023 12:12:37 09/27/19 24 Allergy Immunotherapy Injections completed JUAQUIN YAÑEZ RN 100 [facility],[address], [address], [place] [facility] 09/27/2023 10:51:29 09/20/19 24 Allergy Immunotherapy Injections completed JUAQUIN YAÑEZ RN [address],[place] [address] [place] [address], [address], [place] [facility] 09/20/2023 10:20:29 09/13/19 24 Allergy Immunotherapy Injections completed SCOTTY RICE [address] [facility] [address],[place] [address] [place] [address], [address], [place] [facility] 09/13/2023 12:56:00 09/05/19 24 Allergy Immunotherapy Injections completed JUAQUIN YAÑEZ RN [address] [facility] [address],[place] [address] [place] [address], [address], [place] [facility] 09/05/2023 09:56:55 08/31/19 24 Allergy Immunotherapy Injections completed SCOTTY RICE [address] [facility] [address],[place] [address] [place] [address], [address], [place] [facility] 08/31/2023 09:14:03 08/23/19 24 Allergy Immunotherapy Injections completed KEN CARDENAS RMKendell [address] [facility] [address],[place] [address] [place] [address], [address], [place] [facility] 08/23/2023 09:35:11 08/17/19 24 Allergy Immunotherapy Injections completed KEN AGRAWALC, RMA [address] [facility],[address], [address], [facility] - [facility] 08/17/2023 10:13:24 08/10/19 24 Allergy Immunotherapy Injections completed KEN RASTAZEC, RMA [address] [facility],[address], [address], [facility] - [facility] 08/10/2023 11:14:06 08/03/19 24 Allergy Immunotherapy Injections completed JUAQUIN YAÑEZ RN 100 [facility],[address], [address], [facility] - [facility] 08/03/2023 10:25:33 07/27/19 24 Allergy Immunotherapy Injections completed KEN MAGDALENOZEC, RMA 100 [facility],[address], [address], [facility] - [facility] 07/27/2023 10:39:49 07/21/19 24 Allergy Immunotherapy Injections completed KEN NGHIAC, RMA [address] [facility],[address], [address], [facility] - [facility] 07/21/2023 10:29:54 Imaging Results None recorded. Procedure Notes None recorded. Medical Equipment None Reported. Allergies Allergen ID Allergen Name Allergen Category Reaction Reaction Severity Criticality Documentation Date Start Date Code Code System Note Provider Name and Address Organization Details Recorded Time 612740 oxycodone medicatio n Not available Not available Not available 07/19/2023 7804 RxNorm React ion: Dizzi ness, Abdom inal pain, Weakn ess; Not Available [facility] 4 01:20:52 768732 lactose Not available diarrhea Not available Not available 07/19/2023 6211 RxNorm React ion: Diarr hea; Not Available [facility] 4 01:20:53 Medications Name Sig Start Date [...] mg tablet 09/08 completed Medicati on ID: [id number] Tyesha narayanan Name: dwight hill Send Method: [...] a day 2023 active Medicati on ID: [id number] D uration Value: 30 Pres[address] bed By [...] Multi-Vit schaefer tablet active Medicati on ID: 475377 B rand Name: Daily Multi-Vi tamin Se [...] capsule, extended release active Medicati on ID: 247523 B rand Name: Qsymia S end Method: [...] (7) tablet 09/08 completed Medicati on ID: [id number] B rand Name: Jenise Wright [birth year]) [...] SNOMED-CT Code Diagnosis ICD10 Code Diagnosis Note [id number] JUAQUIN YAÑEZ RN Allergy [address] [place] [address],[place] [address] 100 [place] [address] 02/07/2024 10:13:39 02/07/2024 10:14:50 Perennial allergic rhinitis 661146939 J30.89 27343 [facility] Allergy [address] [place] [address],[place] 100 [facility] [place] [address] 02/14/2024 11:05:15 02/14/2024 11:06:25 Perennial allergic rhinitis 281654441 J30.89 76169 JUAQUIN YAÑEZ RN Allergy [address] [place] [address] it[address] [facility] [place] [address] 02/23/2024 10:00:14 02/23/2024 10:01:52 Perennial allergic rhinitis 167324705 J30.89 32529 JUAQUIN YAÑEZ RN Allergy [address] [place] [address],[place] [address] 100 [facility] [place] [address] 03/01/2024 09:37:35 03/01/2024 09:38:44 Perennial allergic rhinitis 163047005 J30.89 57372 [facility], [facility] Allergy 100 [facility],[place] [address] [place] [address] 03/08/2024 12:13:01 03/08/2024 12:14:59 Perennial allergic rhinitis 254597990 J30.89 Health Concerns Section Related Observation LastModified by Organization Detai ls LastModified Time None Recorded Concern Status LastModified by Organization Details LastModified Time None Recorded Payers Encounter Date Sequence Insurance Name Policy Number Policy Roche Covered Member ID Roche Member ID Guarantor Name 03/08/2024 1 KETAN: [facility] ([facility] [id number] Shelia Fitzgerald [id number] Shelia Fitzgerald OBGyn Episode No OBEpisode recorded.
== END 2024-03-16 07:42 | disposition home or self-care (01) ==
LOC: HO.MAMMO 07:41
PROVIDERS: PCP Internal Medicine; Visit Provider Internal Medicine
DX: Z12.31 Encounter for screening mammogram for malignant neoplasm of breast (principal)
CPT/HCPCS: 77063; 77067

== ENCOUNTER → 2024-03-16 08:00 | Outpatient (BNV) | payer BC, SELFPAY | PROVIDERS: PCP Internal Medicine; Visit Provider Internal Medicine | DX: Z12.31 Encounter for screening mammogram for malignant neoplasm of breast (principal) | CPT/HCPCS: 77063; 77067 ==

== ENCOUNTER 2024-04-25 08:08 | Outpatient (AMB) | payer BC, SELFPAY ==
--- OUTSIDE RECORDS SUMMARY | 2024-04-25 08:13 | XMS_ITS | Data Portability ---
Author Organization [place] - [facility], Allergy Address [address] [address] Care Team Providers Care Fatback Trimmer Name Role Phone TOD JENKINS Primary Care Provider Assessment Encounter Date Assessment Date Assessment LastModified by Organization Details LastModified Time 03/20/2024 03/20/2024 Visit With: SCOTTY Lara Use of Antihistamines: No If yes: Vial Test Change in medications: No If yes ?? Increase in asthma symptoms If yes, inhaler use: Reaction to last injections: No If yes: ?? Allergy Symptoms: Other: ?? Missed: Dose Aware of Vial Test Notes:?? [email or web address] Not available 03/20/2024 09:23:29 03/28/2024 03/28/2024 Visit With: Juaquin Yañez RN Use of Antihistamines: No If yes: Vial Test Change in medications: No If yes ?? Increase in asthma symptoms No Asthma Hx If yes, inhaler use: Reaction to last injections: No If yes: ?? Allergy Symptoms: Other: ?? Missed: Dose Aware of Vial Test Notes:?? [email or web address] Not available 03/28/2024 10:48:22 04/03/2024 04/03/2024 Visit With: Juaquin Yañez RN Use of Antihistamines: No If yes: Vial Test Change in medications: No If yes ?? Increase in asthma symptoms If yes, inhaler use: Reaction to last injections: No If yes: ?? Allergy Symptoms: Other: ?? Missed: Dose Aware of Vial Test Notes:??will miss next 2 weeks [email or web address] Not available 04/03/2024 10:19:55 04/23/2024 04/23/2024 Patient is doing well on current immunotherapy program. They are compliant with therapy. Symptoms are improving, but not yet resolved. No need for meds They will continue with treatment and followup in 6 months. All questions were answered. attila Not available 04/23/2024 09:37:02 04/23/2024 04/23/2024 Visit With: Juaquin Yañez RN Use of Antihistamines: No If yes: Vial Test Change in medications: No If yes ?? Increase in asthma symptoms If yes, inhaler use: Reaction to last injections: No If yes: ?? Allergy Symptoms: Other: ?? Missed: 1 week Dose Repeated Aware of Vial Test Notes:?? Not available 04/23/2024 09:59:27 Plan of Treatment Reminders Order Date Submit Date Provider Last Modified By Organization Details Last Modified Time Details Appointments Establish ed- Allergy f-up 6mon 2024 10:30A M JOSE STONE MD Not available Not available Not available Lab None recorded. Referral None recorded. Procedures None recorded. Surgeries None recorded. Imaging None recorded. Medication Orders epinephri ne 0.3 mg/0.3 mL injection , auto-inje ctor 2024 025 [facility], [address] [place] [address], [id number], 04/23/2024 09:36:58 Patient TargetsNo targets recorded. Patient InstructionsNo instructions recorded. Reason for Referral None Reported. Problems Name Problem SNOMED Code Status Onset Date Resolution Date Notes Provider Name and Address Organization Details Recorded Time Achalasia of esophagus 72530324 Active 2022 Achalasia NOS; Note: Date Diagnosed : 06/23/2022 2:49 PM (K22.0) Not Available [facility] 4 03:10:05 Respirato ry finding 337873966 Active 2022 Feeling of foreign body in throat; Note: Date Diagnosed : 06/23/2022 2:49 PM (R09.89) Not Available [facility] 4 03:10:05 Cardiovas cular finding 100391535 Active 2022 Feeling of foreign body in throat; Note: Date Diagnosed : 06/23/2022 2:49 PM (R09.89) Not Available [facility] 4 03:10:05 Posterior rhinorrhe a 69546358 Active 2022 Postnasal drip; Note: Date Diagnosed : 06/23/2022 2:49 PM (R09.82) Not Available [facility] 4 03:10:04 Allergic rhinitis 88670640 Active 2023 Allergic rhinitis: Due to other [...] Note: Date Diagnosed : 10/16/19 Not Available [facility] 4 01:25:32 Deviated nasal septum 069636251 Active 2022 Deviated nasal septum; Note: Date Diagnosed : 06/23/2022 2:49 PM (J34.2) Not Available [facility] 4 03:10:04 Perennial allergic rhinitis 186025064 Active 2023 KEN AGRAWAL, A [address], [place], [address] , [place] - [facility] 4 10:29:26 Snoring 81644481 Active 2023 Snoring; Note: Date Diagnosed : 04/04/2023 8:51 AM (R06.83) Not Available [facility] 4 03:10:03 Obesity 215734969 Active 2023 Other obesity; Note: Date Diagnosed : 04/04/2023 8:51 AM (E66.8) Not Available [facility] 4 03:10:04 Tinnitus of vascular origin 436984138 Active 2023 Pulsatile tinnitus, right ear; Note: Date Diagnosed : 04/04/2023 8:49 AM (H93.A1) Not Available [facility] 4 03:10:04 Sensorine ural hearing loss 68399036 Active 2023 Sensorine ural hearing loss, unilatera l, right ear, with unrestric jaswant hearing on the contralat eral side; Note: Date Diagnosed : 04/04/2023 9:26 AM (H90.41) Not Available [facility] 4 03:10:05 Abnormal auditory perceptio n 05232568 Active 2023 JOSE VELÁZQUEZ MD [address], [place], [address] , [place] - [facility] 4 21:49:47 Subjectiv e pulsatile tinnitus of right ear 31702110356 32219 Active 2023 JOSE VELÁZQUEZ MD 100 [facility],[place] [address], [place], [address] , [facility] - [facility] [place] 4 21:53:02 Abnormal auditory perceptio n 03884651 Active 2023 JOSE VELÁZQUEZ MD 100 [facility],[place] [address], [place], [address] , 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 Procedures Surgical History Date Name Laterality Status Provider Name and Address Organization Details Recorded Time 04/23/19 25 Allergy Immunotherapy Injections completed VALORIE LUCIO, [facility] [facility], [place], [address], [facility] - [facility] 04/23/2024 09:59:03 04/03/19 25 Allergy Immunotherapy Injections completed KEN CARDENAS, [facility] [address] [facility] [address],[place] [address] [place] [address], [address], [facility] - [facility] 04/03/2024 10:20:26 03/28/19 25 Allergy Immunotherapy Injections completed JUAQUIN YAÑEZ RN [address],[place] [address], [place], [address], [place] [facility] [place] 03/28/2024 10:48:14 03/20/19 25 Allergy Immunotherapy Injections completed KEN CARDENAS, RMA [address],[place] [address], [place], [address], [place] [facility] 03/20/2024 09:23:24 03/13/19 25 Allergy Immunotherapy Injections completed KEN CARDENAS, RMA [address] [facility] [address] [address], [place], [address], [place] [facility] 03/13/2024 11:58:51 03/08/19 25 Allergy Immunotherapy Injections completed KEN CARDENAS, A [address] [facility] [address] [address], [place], [address], [place] [facility] 03/08/2024 12:13:50 03/01/20 24 Allergy Immunotherapy Injections completed JUAQUIN YAÑEZ RN [facility] [place],[place] [address] [place] [address], [address], [place] [facility] 03/01/2024 09:38:10 02/23/20 24 Allergy Immunotherapy Injections completed JUAQUIN YAÑEZ RN [address] [facility],[place] [address] [place] [address], [address], [place] [facility] 02/23/2024 10:01:24 02/14/20 24 Allergy Immunotherapy Injections completed KEN CARDENAS A [address] [facility] [address],[place] [address] [place] [address], [address], [place] [facility] 02/14/2024 11:05:56 02/07/20 24 Allergy Immunotherapy Injections completed JUAQUIN YAÑEZ RN [address] [facility] [address],[place] [address] [place] [address], [address], [place] [facility] 02/07/2024 10:14:23 02/03/20 24 Allergy Immunotherapy Injections completed SCOTTY RICE [address],[place] [address], [place], [address], [place] [facility] 02/03/2024 09:34:55 01/24/20 24 Allergy Immunotherapy Injections completed JUAQUIN YAÑEZ RN 100 [facility],[place] [address] [place] [address], [address], [place] [facility] 01/24/2024 10:50:50 01/19/20 24 Allergy Immunotherapy Injections completed SCOTTY RICE [address] [facility] [address],[place] [address] [place] [address], [address], [place] [facility] 01/19/2024 13:18:23 01/10/20 24 Allergy Immunotherapy Injections completed SCOTTY RICE [address] [facility] [address], [place], [address], [place] [facility] 01/10/2024 09:42:22 01/03/20 24 Allergy Immunotherapy Injections completed JUAQUIN YAÑEZ RN 100 [facility],[place] [address] [place] [address], [address], [place] [facility] 01/03/2024 11:08:00 12/29/19 24 Allergy Immunotherapy Injections completed SCOTTY RICE 100 [facility],[place] [address] [place] [address], [address], [place] [facility] 12/29/2023 09:38:54 12/21/19 24 Allergy Immunotherapy Injections completed KEN CARDENAS RMA [address] [facility] [place],[place] [address] [place] [address], [address], [place] [facility] 12/21/2023 11:30:52 12/14/19 24 Allergy Immunotherapy Injections completed JUAQUIN YAÑEZ RN 100 [facility],[address], [address], [place] [facility] [place] 12/14/2023 11:25:12 11/23/19 24 Allergy Immunotherapy Injections completed KEN CARDENAS RMA [address] [facility] [place],[place] [address] [place] [address], [address], [place] [facility] 11/23/2023 10:31:13 11/17/19 24 Allergy Immunotherapy Injections completed KEN CARDENAS RMA [address] [facility],[place] [address] [place] [address], [address], [place] [facility] 11/17/2023 09:42:16 11/09/19 24 Allergy Immunotherapy Injections completed JUAQUIN YAÑEZ RN [facility] [place],[place] [facility], [place], [address], [place] [facility] 11/09/2023 11:29:05 11/01/19 24 Allergy Immunotherapy Injections completed JUAQUIN YAÑEZ RN [facility] [address], [place], [address], [place] [facility] [place] 11/01/2023 10:43:38 10/27/19 24 Allergy Immunotherapy Injections completed KEN CARDENAS Isabela [address] [facility],[place] [address] [place] [address], [address], [place] [facility] 10/27/2023 11:59:30 10/19/19 24 Allergy Immunotherapy Injections completed JUAQUIN YAÑEZ RN 100 [facility],[address], [address], [place] [facility] 10/19/2023 10:27:27 10/19/19 24 Air & Speech Audio with Tymps (55840, 36585 & 19647) completed DARRIUS OSMAN MA, CCC-A 100 [facility],[address], [address], [place] [facility] 10/19/2023 09:45:15 10/11/19 24 Allergy Immunotherapy Injections completed SCOTTY RICE 100 [facility],[place] [address] [place] [address], [address], [place] [facility] 10/11/2023 09:44:13 10/04/19 24 Allergy Immunotherapy Injections completed KEN CARDENAS Isabela [facility] [place],[place] [address] [place] [address], [address], [place] [facility] 10/04/2023 12:12:37 09/27/19 24 Allergy Immunotherapy Injections completed JUAQUIN YAÑEZ RN 100 [facility],[place] [address] [place] [address], [address], [place] [facility] 09/27/2023 10:51:29 09/20/19 24 Allergy Immunotherapy Injections completed JUAQUIN YAÑEZ RN 100 [facility],[address], [address], [place] [facility] 09/20/2023 10:20:29 09/13/19 24 Allergy Immunotherapy Injections completed DOMINIC RICEA [address], [place], [address], [place] [facility] 09/13/2023 12:56:00 09/05/19 24 Allergy Immunotherapy Injections completed JUAQUIN YAÑEZ RN [address],[place] [address], [place], [address], [place] [facility] 09/05/2023 09:56:55 08/31/19 24 Allergy Immunotherapy Injections completed VALORIE LUCIO RMA [address], [place], [address], [place] [facility] 08/31/2023 09:14:03 08/23/19 24 Allergy Immunotherapy Injections completed KEN CARDENAS RMA [address], [place], [address], [place] [facility] 08/23/2023 09:35:11 08/17/19 24 Allergy Immunotherapy Injections completed KEN AGRAWALC, RMA [address], [place], [address], [place] [facility] 08/17/2023 10:13:24 08/10/19 24 Allergy Immunotherapy Injections completed KEN CARDENAS, RMA [address],[place] [address], [place], [address], [place] [facility] 08/10/2023 11:14:06 08/03/19 24 Allergy Immunotherapy Injections completed JUAQUIN YAÑEZ RN [address], [place], [address], [place] [facility] 08/03/2023 10:25:33 07/27/19 24 Allergy Immunotherapy Injections completed KEN AGRAWALC, RMA [address],[place] [address], [place], [address], [place] [facility] 07/27/2023 10:39:49 07/21/19 24 Allergy Immunotherapy Injections completed KEN AGRAWALC, RMA [address],[place] [address], [place], [address], [place] - [facility] 07/21/2023 10:29:54 Imaging Results None recorded. Procedure Notes None recorded. Medical Equipment None Reported. Allergies Allergen ID Allergen Name Allergen Category Reaction Reaction Severity Criticality Documentation Date Start Date Code Code System Note Provider Name and Address Organization Details Recorded Time [id number] oxycodone medicatio n Not available Not available Not available 07/19/2023 7804 RxNorm React ion: Dizzi ness, Abdom inal pain, Weakn ess; Not Available [facility] 4 01:20:52 284582 lactose Not available diarrhea Not available Not available 07/19/2023 6211 RxNorm React ion: Diarr hea; Not Available [facility] 4 01:20:53 Medications Name Sig Start Date [...] mg tablet 09/08 completed Medicati on ID: [id number] B rand Name: meloxica sergio Send Method: E-Prescr ibed Sub s Allowed: subs OK Speci al Instruct ion: TAKE 1 TABLET BY MOUTH ONCE DAILY WITH FOOD Med icationG enericNa me: meloxica m Not Available Not Available Not Available naltrexon e 50 mg tablet TAKE 1 TABLET BY MOUTH ONCE DAILY FOR 30 DAYS 04/19 completed Not Available Not Available Not Available prednison e 20 mg tablet 04/19 completed Not Available Not Available Not Available tramadol 50 mg tablet TAKE 1 TABLET BY MOUTH ONCE DAILY NEEDED FOR PAIN FOR 30 DAYS active Not Available Not Available No t Available levothyro xine 25 mcg tablet TAKE 1 TABLET BY MOUTH ONCE DAILY IN THE MORNING active Not Available Not Available No t Available ferrous sulfate 325 mg (65 mg iron) tablet TAKE 1 TABLET BY MOUTH ONCE DAILY 04/19 completed Not Available Not Available Not Available triamcino lone acetonide 0.025 % topical ointment APPLY THIN LAYER TO IRRITATE D AREA R NECK X1-2 WEEKS THEN TAKE 1 WEEK BREAK. CAN REPEAT AFTER OFF WEEK NEEDED 04/19 completed Not Available Not Available Not Available betametha sone dipropion ate 0.05 % topical cream APPLY CREAM TOPICALL Y TWICE DAILY NEEDED FOR SKIN IRRITATI ON FOR 2 WEEKS 04/23 completed Not Available Not Available Not Available omeprazol e 20 mg capsule,d elayed release Take 1 capsule every day by oral route. active Not Available Not Available No t Available budesonid e 0.5 mg/2 mL suspensio n for nebulizat ion 04/19 completed Not Available Not Available Not Available azelastin e 137 mcg (0.1 %) nasal spray USE 2 SPRAY(S) IN EACH NOSTRIL TWICE DAILY DIRECTED 04/19 completed Not Available Not Available Not Available epinephri ne 0.3 mg/0.3 mL injection , auto-inje ctor Take 1 auto by injectio n route for 180 days, for anaphyla xis. 2024 active Not Available Not Available Not Avai lable topiramat e 100 mg tablet TAKE 1 TABLET BY MOUTH ONCE DAILY active Not Available Not Available No t Available fluticaso ne propionat e 50 mcg/actua tion nasal spray,allen pension 04/19 completed Not Available Not Available Not Available spironola ctone 50 mg tablet 04/19 completed Not Available Not Available Not Available Daily Multi-Vit schaefer tablet active Medicati on ID: [id number] B rand Name: Daily Multi-Vi tamin Se nd Method: E-Prescr ibed Sub s Allowed: subs OK Medic ationGen ericName : Daily Multi-Vi tamin Not Available Not Available Not Available bupropion HCl XL 150 mg 24 hr tablet, extended release TAKE 1 TABLET BY MOUTH ONCE DAILY IN THE MORNING active Not Available Not Available No t Available Topamax 50 mg tablet Take 1 tablet twice a day by oral route. active Not Available Not Available No t Available Qsymia 11.25 mg-69 mg capsule, extended release 04/19 completed Not Available Not Available Not Available Qsymia 3.75 mg-23 mg capsule, extended release 04/19 completed Not Available Not Available Not Available Qsymia 7.5 mg-46 mg capsule, extended release 04/19 completed Not Available Not Available Not Available Eliquis 5 mg tablet 04/19 completed Not Available Not Available Not Available Eliquis 2.5 mg tablet TAKE 1 TABLET BY MOUTH TWICE DAILY active Not Available Not Available No t Available Jenise Fe 03/26 () 1 mg-20 mcg (21)/75 mg (7) tablet 09/08 completed Medicati on ID: [id number] B rand Name: Jenise Wright 03/26 (28) Sen d Method: E-Prescr ibed Sub s Allowed: subs OK Medic ationGen ericName : Jenise Fe 03/26 () Not Available Not Available Not Available Vitals Date Recorded Body height Body weight Provider Name and Address Organization Details Last Updated DateTime 04/23/2024 162.56 cm 38759.47 g Tod Quintanilla [place] - [facility] 04/23/2024 09:21:16 Social History None recorded. Functional Status None recorded. Mental Status None recorded. Family History Relationship Description Onset Age of this Age Resolved Age Notes LastModified by Organization Details LastModified Time Mother Asthma [email or web address] Not availab le 04/23/2024 09:21:21 Sister Asthma [email or web address] Not availab le 04/23/2024 09:21:21 Sister Complication of anesthesia [email or web address] Not available 09:21:21 Sister Allergy to food [email or web address] Not available 09:21:21 Medical History Condition Response Allergies/Hayfever Y Heart Problems N Anxiety N Tonsil Infections N Emphysema N Migraines N Thyroid Problems Y Glaucoma N Depression N COPD N Developmental Delay N Nasal or Sinus Problems Y Anemia Y Immune System Disorder N Anesthesia Complications N Heart Attack ([place]) N Other Skin Condition N Diabetes N Rhinitis N Bleeding Disorder N Food Allergy Y Arthritis Y Hearing Loss Y Hyperlipidemia N Cancer N Stroke N Dementia N Nasal polyps N Asthma N Sleep Disorder N GERD/Reflux N High Cholesterol N Liver Disease N Headaches N Fibromyalgia N Hypertension N Speech Delay N Kidney Disease N Gynecological HistoryNo gynecological history recorded. Obstetrics History GPAL:G 0 P 0 0 0 0 Past Encounters Encounter ID Performer Location Encounter Start Date Encounter Closed Date Diagnosis/Indication Diagnosis SNOMED-CT Code Diagnosis ICD10 Code Diagnosis Note [id number] JOSE VELÁZQUEZ MD Allergy 100 [facility],[place] [address] [facility] [place] [address] 07/21/2023 10:01:06 07/22/2023 13:03:52 Perennial allergic rhinitis [id number] J30.89 [id number] JOSE VELÁZQUEZ MD Allergy [address] [place] [address],[place] [address] [place] [address] 07/27/2023 10:17:14 07/27/2023 11:20:05 Perennial allergic rhinitis [id number] J30.89 [id number] JUAQUIN YAÑEZ RN Allergy [address] [place] [address], [address] [place] [address] 08/03/2023 10:24:55 08/03/2023 13:01:24 Perennial allergic rhinitis 078911098 J30.89 [id number] [facility], [facility] Allergy [address] [place] [address], [address] [place] [address] 08/10/2023 10:49:51 08/10/2023 11:19:10 Perennial allergic rhinitis [id number] J30.89 [id number] [facility], [facility] Allergy [address] [place] [address], [address] [place] [address] 08/17/2023 09:07:38 08/17/2023 11:14:32 Perennial allergic rhinitis [id number] J30.89 [id number] [facility], [facility] Allergy [address] [place] [address] [address] [place] [address] 08/23/2023 09:03:10 08/23/2023 13:26:57 Perennial allergic rhinitis [id number] J30.89 [id number] VALORIE LUCIO [facility] Allergy [address] [place] [address], [address] [place] [address] 08/31/2023 08:49:58 08/31/2023 11:02:35 Perennial allergic rhinitis 142587505 J30.89 [id number] JUAQUIN YAÑEZ RN Allergy [address] [place] [address],[place] [address] [place] [address] 09/05/2023 08:46:12 09/05/2023 10:03:05 Perennial allergic rhinitis [id number] J30.89 [id number] VALORIE LUCIO [facility] Allergy [address] [place] [address] [address] [place] [address] 09/13/2023 08:41:30 09/13/2023 14:37:18 Perennial allergic rhinitis [id number] J30.89 [id number] JUAQUIN YAÑEZ RN Allergy [address] [place] [address], [place] [address] 09/20/2023 10:16:20 09/21/2023 13:05:24 Perennial allergic rhinitis [id number] J30.89 [id number] JUAQUIN YAÑEZ RN Allergy [address] [place] [address], [place] [address] 09/27/2023 09:14:35 09/27/2023 10:52:56 Perennial allergic rhinitis [id number] J30.89 [id number] KEN CARDENAS, [facility] Allergy [address] [place] [id number] 10/04/2023 12:11:42 10/04/2023 12:14:07 Perennial allergic rhinitis [id number] J30.89 [id number] VALORIE LUCIO [facility] Allergy [address] [place] [id number] 10/11/2023 09:43:29 10/11/2023 11:09:54 Perennial allergic rhinitis [id number] J30.89 [id number] JOSE VELÁZQUEZ MD [facility] [address] [address] 10/19/2023 09:06:55 10/19/2023 10:05:09 Allergic rhinitis 63329993 J30.9 Doing well with immunother apy. EpiPen up-to-date . Abnormal a uditory perception 79983288 H93.291 Audio bilateral SNHL--stab le Subjective pulsatile tinnitus of right ear [id number] 312158 H93.A1 Previous MRA was negative. Deviated nasal septum 12 0587327 J34.2 mild Sensorineu ral hearing loss 21419220 H90.41 10-19-2023 udiologica l evaluation results: Right [...] Cou ld not maintain a hermetic seal}} [id number] JUAQUIN YAÑEZ RN Allergy [address] [place] [address] it[address] [place] [address] 10/19/2023 10:26:27 10/19/2023 10:27:52 Perennial allergic rhinitis [id number] J30.89 [id number] [facility] Allergy [address] [place] [address], ite [address] [place] [address] 10/27/2023 09:20:07 10/27/2023 13:21:33 Perennial allergic rhinitis [id number] J30.89 [id number] JUAQUIN YAÑEZ RN Allergy [address] [place] [address] [place] [address] 11/01/2023 10:42:48 11/01/2023 10:44:36 Perennial allergic rhinitis [id number] J30.89 [id number] JUAQUIN YAÑEZ RN Allergy [address],[place] ite [address] [place] [address] 11/09/2023 11:26:12 11/09/2023 11:29:30 Perennial allergic rhinitis [id number] J30.89 [id number] [facility], [facility] Allergy [address] [place] [address],[place] [address] [place] [address] 11/17/2023 09:40:52 11/17/2023 11:43:31 Perennial allergic rhinitis [id number] J30.89 [id number] JUAQUIN YAÑEZ RN Allergy [address] [place] [address], it[address] [place] [address] 11/23/2023 10:27:55 11/23/2023 10:32:23 Perennial allergic rhinitis [id number] J30.89 [id number] JUAQUIN YAÑEZ RN Allergy [address] [place] [address] it[address] [place] [address] 12/14/2023 11:23:54 12/14/2023 11:25:34 Perennial allergic rhinitis [id number] J30.89 [id number] [facility] Allergy [address] [place] [address], it[address] [place] [address] 12/21/2023 11:30:12 12/21/2023 11:31:30 Perennial allergic rhinitis [id number] J30.89 [id number] VALORIE LUCIO [facility] Allergy [address] [place] [address] it[address] [place] [address] 12/29/2023 09:38:10 12/29/2023 09:40:16 Perennial allergic rhinitis [id number] J30.89 [id number] JUAQUIN YAÑEZ RN Allergy [address] [place] [address] it[address] [place] [address] 01/03/2024 11:06:53 01/03/2024 11:08:17 Perennial allergic rhinitis [id number] J30.89 [id number] VALORIE LUCIO [facility] Allergy [address] [place] [address], it[address] [place] [address] 01/10/2024 09:41:40 01/10/2024 09:42:52 Perennial allergic rhinitis [id number] J30.89 [id number] VALORIE LUCIO [facility] Allergy [address],[place] [address] [place] [address] 01/19/2024 13:16:02 01/19/2024 13:20:09 Perennial allergic rhinitis [id number] J30.89 [id number] JUAQUIN YAÑEZ RN Allergy [address] [place] [address] [address] [place] [address] 01/24/2024 10:49:50 01/24/2024 10:52:32 Perennial allergic rhinitis [id number] J30.89 [id number] VALORIE LUCIO, [facility] Allergy [address] [place] [address] it[address] [place] [address] 02/03/2024 09:25:49 02/03/2024 09:35:31 Perennial allergic rhinitis [id number] J30.89 [id number] JUAQUIN YAÑEZ RN Allergy [address] [place] [address] it[address] [place] [address] 02/07/2024 10:13:39 02/07/2024 10:14:50 Perennial allergic rhinitis [id number] J30.89 [id number] [facility], [facility] Allergy [address] [place] [address] it[address] [place] [address] 02/14/2024 11:05:15 02/14/2024 11:06:25 Perennial allergic rhinitis [id number] J30.89 [id number] JUAQUIN YAÑEZ RN Allergy [address] [place] [address] [address] [place] [address] 02/23/2024 10:00:14 02/23/2024 10:01:52 Perennial allergic rhinitis [id number] J30.89 [id number] JUAQUIN YAÑEZ RN Allergy [address] [place], [place] [address] [address] [place] [address] 03/01/2024 09:37:35 03/01/2024 09:38:44 Perennial allergic rhinitis [id number] J30.89 [id number] [facility], [facility] Allergy [address] [place] [address],[place] [address] [place] [address] 03/08/2024 12:13:01 03/08/2024 12:14:59 Perennial allergic rhinitis [id number] J30.89 [id number] [facility], [facility] Allergy [address] [place] [address] [address] [place] [address] 03/13/2024 11:57:35 03/13/2024 11:59:25 Perennial allergic rhinitis [id number] J30.89 [id number] KEN AGRAWAL, A Allergy 100 [facility],[place] [address] [place] [address] 03/20/2024 09:19:50 03/20/2024 09:23:46 Perennial allergic rhinitis [id number] J30.89 [id number] JUAQUIN YAÑEZ RN Allergy 100 [facility],[place] [address] [place] [address] 03/28/2024 10:20:37 03/28/2024 10:48:37 Perennial allergic rhinitis [id number] J30.89 [id number] KEN NGHIA, A Allergy 100 [facility],[place] [address] [place] [address] 04/03/2024 10:19:02 04/03/2024 10:20:47 Perennial allergic rhinitis [id number] J30.89 [id number] JOSE VELÁZQUEZ MD [facility] [place] [address] [facility] [place] [address] 04/23/2024 09:16:11 04/23/2024 09:38:20 Allergic rhinitis [id number] J30.89 Doing well with immunother apy. New Epipen prescribed [id number] VALORIE LUCIO, [facility] Allergy 100 [facility],[place] [address] [place] [address] 04/23/2024 09:58:15 04/23/2024 09:59:52 Perennial allergic rhinitis [id number] J30.89 Health Concerns Section Related Observation LastModified by Organization Detai ls LastModified Time None Recorded Concern Status LastModified by Organization Details LastModified Time None Recorded Advance Directives Directive None Recorded Payers Encounter Date Sequence Insurance Name Policy Number Policy Roche Covered Member ID Roche Member ID Guarantor Name 03/20/2024 1 [place] [facility] [employer] ([facility]) [id number] Shelia Fitzgerald [id number] Shelia Fitzgerald 03/28/2024 1 [place] [facility] ([facility]) [id number] Shelia Haya [id number] Shelia Haya 04/03/2024 1 [place] [facility] ([facility]) [id number] Shelia Haya [id number] Shelia Haya 04/23/2024 1 [place] [facility] ([facility]) [id number] Shelia Haya [id number] Shelia Haya 04/23/2024 1 [place] [facility] ([facility]) [id number] Shelia Haya [id number] Shelia Haya Notes Date Note Type Note Provider Name and Address Organization Details Recorded Time 04/23/2024 text/html Patient seen in follow-up for allergy injection immunotherapy. Therapy initiated {{ 10/2022#}}. {{He She*}} is doing well tolerating the therapy and progressing per the flow sheet. {{No adverse reactions* Limit by local reactions}}. No need for any acute medications. Presently maintained on no meds for allergy{{History N o history*}} of asthma. Recent EGD showed gastritis --omeprazole now JOSE DIXON MD [address] [place] [address], [phone], [place] [facility] 04/23/2024 09:37:17 OBGyn Episode No OBEpisode recorded.
--- OUTSIDE RECORDS SUMMARY | 2024-04-25 08:14 | XMS_ITS | Clinical Summary ---
Author Organization 175 [facility] Address [address] [place] [address] Phone Care Team Providers Care Fretted Instrument Repairer Name Role Phone Bonnie Ahn MD Primary Care Provider [phone] Allergies Active Allergy Reactions Criticality Noted Date Comments Lactose 07/26/2017 Oxycodone 05/06/2022 Other Reaction(s): Chest tightness Medications apixaban (ELIQUIS) 5 mg tablet Take by mouth. Activ e cyclobenzaprine HCl (CYCLOBENZAPRINE ORAL) Take by mouth. Activ e EPINEPHRINE BASE, REFILL, INHL Inhale into the lungs. Active azelastine (OPTIVAR) 0.05 % ophthalmic solution 1 Drop 2 times daily. Active MULTIVITAMIN ORAL Take by mouth. Injections not pill form Active meloxicam submicronized 10 mg capsule Take by mouth. Acti ve traMADoL (ULTRAM) 50 mg tablet Take 1 tablet (50 mg total) by mouth every 6 (six) hours if needed. Max Daily Amount: 200 mg Active levothyroxine sodium (LEVOTHYROXINE ORAL) Take 0.25 mg by mouth daily. Active topiramate (TOPAMAX) 100 mg tabletIndications :Obesity, Class I, BMI 30-34.9 Take 1 tablet (100 mg total) by mouth 1 (one) time each day. 30 each 2 04/03/19 25 025 Active buPROPion XL (WELLBUTRIN XL) 150 mg 24 hr tabletIndications :Obesity, Class I, BMI 30-34.9 Take 1 tablet (150 mg total) by mouth 1 (one) time each day in the morning. 30 each 2 04/03/19 25 025 Active buPROPion XL (WELLBUTRIN XL) 150 mg 24 hr tablet Take 1 tablet (150 mg total) by mouth 1 (one) time each day in the morning. 30 each 2 03/22/19 25 025 Discontin ued(Reord er) topiramate (TOPAMAX) 100 mg tablet Take 1 tablet (100 mg total) by mouth 1 (one) time each day. 30 each 2 03/22/19 25 025 Discontin ued(Reord er) Active Problems Problem Noted Date Diagnosed Date Class 2 obesity with body ma ss index (BMI) of 35.0 to 35.9 in adult 02/01/2024 Abdominal pannus 08/24/2019 Diastasis recti 08/24/2019 Intertrigo 08/24/2019 Skin laxity 08/24/2019 Excess weight 03/29/2019 Intestinal malabsorption following gastrectomy 0 11/29/2017 Achalasia 08/19/2017 Encounters Date Type Department Care Team Description 04/03/2024 9:00 AM EST Office Visit Bariatric Surgery - [address] [place] [phone] Radha West MD Obesity, Class I, BMI 30-34.9 (Primary Dx); Symptomatic abdominal panniculus from Last 3 Months Surgical History Surgery Date Site/Laterality Comments CHOLECYSTECTOMY 02/23/2017 PROCEDURE: HISTORICAL CHOLECYSTECTOMY OTHER SURGICAL HISTORY 02/23/2017 PROCEDURE: ---- OTHER ----; COMMENT: Hiatal hernia repair, incidental finding during lap sleeve gastrectomy OTHER SURGICAL HISTORY 02/23/2017 PROCEDURE: ---- OTHER ----; COMMENT: Lap sleeve gastrectomy, Dr. West OTHER SURGICAL HISTORY PROCEDURE: ARTHROSCOPY PROCEDURE NEC SECTION PROCEDURE: TX DELIVERY ONLY OTHER SURGICAL HISTORY PROCEDURE: HISTORY OTHER; COMMENT: surgery for blood clot. Medical History Medical History Date Comments History of bariatric surgery 08/19/2017 DX: History of bariatric surgery; COMMENT: 02/23/2017 Laparoscopic sleeve gastrectomy, Dr. West Achalasia 08/19/2017 DX:Achalasia Morbid obesity with BMI of 45.0-49.9, adult (CMS/HCC) 08/19/2017 DX:Morbid obesity with BMI of 45.0-49.9, adult (HCC) Family History Medical History Relation Name Comments Diabetes Father Hypertension Mother Relation Name Status Comments Father Mother Alive Social History Tobacco Use Types Packs/Day Years Used Date Smoking Tobacco: Never Smokeless Tobacco: Never Alcohol Use Standard Drinks/Week Comments No 0 (1 standard drink = 0.6 oz pur e alcohol) Comments Unknown Sex and Gender Information Value Date Recorded Sex Assigned at Female 02/01/2024 3:01 PM EST Legal Sex Female 7:19 PM EST Gender Identity Female 02/01/2024 3:01 PM EST Sexual Orientation Straight 02/01/2024 3: 01 PM EST Obstetrics History Last Filed Vital Signs Vital Sign Reading Time Taken Comments Blood Pressure 111/74 04/03/2024 9:26 AM EST Pulse 73 04/03/2024 9:26 AM EST Temperature 36.6 ??C (97.8 ??F) 04/03/2024 9:26 AM ES T Respiratory Rate - - Oxygen Saturation - - Inhaled Oxygen Concentration - - Weight 89.4 kg (197 lb) 04/03/2024 9:26 AM EST Height 162.6 cm (5' 4 ) 04/03/2024 9:26 AM EST Body Mass Index 33.81 04/03/2024 9:26 AM EST Plan of Treatment Upcoming Encounters Date Type Department Care Team (Late st Contact Info) Description 07/26/2024 8:00 AM EDT Office Visit Bariatric Surgery - [place] [address] [facility] [address] [place] [phone] Radha West MD [address] [facility] [address] [place] [address] Health Maintenance Due Date Last Done Comments Breast Cancer Screening 1972 DTaP,Tdap,and Td Vaccines (1 - Tdap) 1991 Hepatitis B Vaccines (1 of 3 - 19+ 3-dose series) 1991 Cervical Cancer Screening: P ap Smear 1993 Cholesterol Screening (Lipid Panel) 02/13/2022 Colorectal Cancer Screening: Colonoscopy 02/13/2022 Depression Screening 02/13/2022 HIV Screening 02/13/2022 Hepatitis C Screening 02/13/2022 Social Influencers of Health Screening 02/13/2022 Pneumococcal Vaccine: 50+ Years (1 of 1 - PCV) 2022 Zoster Vaccines (1 of 2) 2022 COVID-19 Vaccine (3 - 2023-2 5 season) 2023 05/08/2020, 2020 Influenza Vaccine (#1) 2023 HIB Vaccines Aged Out No longer eligi ble based on patient's age to complete this topic HPV Vaccines Aged Out No longer eligi ble based on patient's age to complete this topic Hepatitis A Vaccines Aged Out No long er eligible based on patient's age to complete this topic IPV Vaccines Aged Out No longer eligi ble based on patient's age to complete this topic MMR Vaccines Aged Out No longer eligi ble based on patient's age to complete this topic Meningococcal ACWY Vaccine Aged Out N o longer eligible based on patient's age to complete this topic Meningococcal B Vacine Aged Out No lo nger eligible based on patient's age to complete this topic Pneumococcal Vaccine: Pediatrics (0 to 5 Years) and At-Risk Patients (6 to 64 Years) Aged Out No longer eligible b ased on patient's age to complete this topic RSV Immunization Patients Under 20 months Aged Out No longer eligible b ased on patient's age to complete this topic Varicella Vaccines Aged Out No longer eligible based on patient's age to complete this topic Insurance Care Teams Fretted Instrument Repairer Relationship Specialty Start Date End Date Jimy, Bonnie R, MD [address] [facility] , [address] [facility] D/B/A: [facility] ESTEFANÍA Larson PCP - General Internal Medicine 03/29/19
--- OUTSIDE RECORDS SUMMARY | 2024-04-25 08:14 | XMS_ITS | Continuity of Care Document ---
Author Organization [place] [facility], [facility] Address [address] [place] [address] Care Team Providers Care Pipe Bowl Paint Trimmer Name Role Phone TOD JENKINS Primary Care Provider Assessment Encounter Date Assessment Date Assessment LastModified by Organization Details LastModified Time 04/23/2024 04/23/2024 Patient is doing well on current immunotherapy program. They are compliant with therapy. Symptoms are improving, but not yet resolved. No need for meds They will continue with treatment and followup in 6 months. All questions were answered. [email or web address] Not available 04/23/2024 09:37:02 Plan of Treatment Reminders Order Date Submit [...] mL injection , auto-inje ctor 2024 025 [facility] [address], [address] [place] [address], [address], 04/23/2024 09:36:58 Patient TargetsNo targets recorded. Patient InstructionsNo instructions recorded. Reason for Referral None Reported. Problems Name Problem SNOMED Code Status Onset Date Resolution Date Notes Provider Name and Address Organization Details Recorded Time Achalasia of esophagus 30308548 Active 2022 Achalasia NOS; Note: Date Diagnosed : 06/23/2022 2:49 PM (K22.0) Not Available [facility] 4 03:10:05 Respirato ry finding 250507840 Active 2022 Feeling of foreign body in throat; Note: Date Diagnosed : 06/23/2022 2:49 PM (R09.89) Not Available [facility] 4 03:10:05 Cardiovas cular finding 722330324 Active 2022 Feeling of foreign body in throat; Note: Date Diagnosed : 06/23/2022 2:49 PM (R09.89) Not Available [facility] 4 03:10:05 Posterior rhinorrhe a 50783826 Active 2022 Postnasal drip; Note: Date Diagnosed : 06/23/2022 2:49 PM (R09.82) Not Available [facility] 4 03:10:04 Allergic rhinitis 19547866 Active 2023 Allergic rhinitis: Due to other [...] Date Diagnosed : 10/16/19 Not Available [facility] 4 01:25:32 Deviated nasal septum 408257466 Active 2022 Deviated nasal septum; Note: Date Diagnosed : 06/23/2022 2:49 PM (J34.2) Not Available [facility] 4 03:10:04 Perennial allergic rhinitis 925075663 Active [address], [address] , [facility] 4 10:29:26 Snoring 24701235 Active 2023 Snoring; Note: Date Diagnosed : 04/04/2023 8:51 AM (R06.83) Not Available [facility] 4 03:10:03 Obesity 278262907 Active 2023 Other obesity; Note: Date Diagnosed : 04/04/2023 8:51 AM (E66.8) Not Available [facility] 4 03:10:04 Tinnitus of vascular origin 868292913 Active 2023 Pulsatile tinnitus, right ear; Note: Date Diagnosed : 04/04/2023 8:49 AM (H93.A1) Not Available [facility] 4 03:10:04 Sensorine ural hearing loss 62240963 Active 2023 Sensorine ural hearing loss, unilatera l, right ear, with unrestric jaswant hearing on the contralat eral side; Note: Date Diagnosed : 04/04/2023 9:26 AM (H90.41) Not Available [facility] 4 03:10:05 Abnormal auditory perceptio n 25827848 Active 2023 JOSE VELÁZQUEZ MD [address], [place], [address] , [place] [facility] 4 21:49:47 Subjectiv e pulsatile tinnitus of right ear 14895266087 31564 Active 2023 JOSE VELÁZQUEZ MD [address], [place], [address] , [place] [facility] 4 21:53:02 Abnormal auditory perceptio n 73269773 Active 2023 JOSE VELÁZQUEZ MD [address], [place], [address] , [place] [facility] 4 09:14:23 Non-aller gic rhinitis 77064586548 1 Active 2023 Oh hernández [place] - [facility] 4 12:14:47 Seasonal allergic rhinitis 234480047 Active 2023 Oh hernández [place] - [facility] 4 12:14:47 Chronic sinusitis 66922509 Active 2023 Oh hernández [place] - [facility] 4 12:16:47 Polyp of nasal cavity 101184024 Active 2023 Oh hernández [place] - [facility] 4 12:17:03 Polypoid sinus degenerat ion 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 Procedures Surgical History Date Name Laterality Status Provider Name and Address Organization Details Recorded Time 04/23/19 25 Allergy Immunotherapy Injections completed SCOTTY RICE [address], [place], [address], [place] [facility] 04/23/2024 09:59:03 04/03/19 25 Allergy Immunotherapy Injections completed KEN RASTAZEC, RMA [address], [place], [address], [place] [facility] 04/03/2024 10:20:26 03/28/19 25 Allergy Immunotherapy Injections completed JUAQUIN YAÑEZ RN [address], [place], [address], [place] [facility] 03/28/2024 10:48:14 03/20/19 25 Allergy Immunotherapy Injections completed KEN RASTAZEC, RMA [address], [place], [address], [place] [facility] 03/20/2024 09:23:24 03/13/19 25 Allergy Immunotherapy Injections completed KEN AGRAWALC, RMA [address], [place], [address], [place] [facility] 03/13/2024 11:58:51 03/08/19 25 Allergy Immunotherapy Injections completed KEN CARDENAS, RMA [address] [facility], [place], [address], [place] [facility] 03/08/2024 12:13:50 03/01/20 24 Allergy Immunotherapy Injections completed JUAQUIN YAÑEZ RN [address] [place] [address], [address], [place] [facility] 03/01/2024 09:38:10 02/23/20 24 Allergy Immunotherapy Injections completed JUAQUIN YAÑEZ RN [address], [place], [address], [place] [facility] 02/23/2024 10:01:24 02/14/20 24 Allergy Immunotherapy Injections completed KEN CARDENAS, RMA [address], [place], [address], [place] [facility] 02/14/2024 11:05:56 02/07/20 24 Allergy Immunotherapy Injections completed JUAQUIN YAÑEZ RN [address], [place], [address], [place] [facility] 02/07/2024 10:14:23 02/03/20 24 Allergy Immunotherapy Injections completed SCOTTY RICE [address], [address], [place] [facility] 02/03/2024 09:34:55 01/24/20 24 Allergy Immunotherapy Injections completed JUAQUIN YAÑEZ RN [address], [place], [address], [place] [facility] 01/24/2024 10:50:50 01/19/20 24 Allergy Immunotherapy Injections completed SCOTTY IRCE [address], [place], [address], [place] [facility] 01/19/2024 13:18:23 01/10/20 24 Allergy Immunotherapy Injections completed SCOTTY RICE [address] [place] [address], [address], [place] [facility] 01/10/2024 09:42:22 01/03/20 24 Allergy Immunotherapy Injections completed JUAQUIN YAÑEZ RN [address] [place] [address], [address], [place] [facility] 01/03/2024 11:08:00 12/29/19 24 Allergy Immunotherapy Injections completed SCOTTY RICE [address] [place] [address], [address], [place] [facility] 12/29/2023 09:38:54 12/21/19 24 Allergy Immunotherapy Injections completed SCOTTY GUTHRIE [address], [place], [address], [place] [facility] 12/21/2023 11:30:52 12/14/19 24 Allergy Immunotherapy Injections completed JUAQUIN YAÑEZ RN [address], [place], [address], [place] [facility] 12/14/2023 11:25:12 11/23/19 24 Allergy Immunotherapy Injections completed SCOTTY GUTHRIE [address], [place], [address], [place] [facility] 11/23/2023 10:31:13 11/17/19 24 Allergy Immunotherapy Injections completed SCOTTY GUTHRIE [address] [facility] [address] [place] [address], [address], [place] [facility] 11/17/2023 09:42:16 11/09/19 24 Allergy Immunotherapy Injections completed JUAQUIN YAÑEZ RN [address] [facility] [address] [place] [address], [address], [place] [facility] 11/09/2023 11:29:05 11/01/19 24 Allergy Immunotherapy Injections completed JUAQUIN YAÑEZ RN 100 [facility],[address], [address], [place] [facility] 11/01/2023 10:43:38 10/27/19 24 Allergy Immunotherapy Injections completed KEN CARDENAS [facility] [address] [facility],[address], [address], [place] [facility] 10/27/2023 11:59:30 10/19/19 24 Allergy Immunotherapy Injections completed JUAQUIN YAÑEZ RN 100 [facility],[address], [address], [place] [facility] 10/19/2023 10:27:27 10/19/19 24 Air & Speech Audio with Tymps (22034, 02081 & 91770) completed DARRIUS OSMAN MA, CCC-A [address] [facility],[address], [address], [place] [facility] 10/19/2023 09:45:15 10/11/19 24 Allergy Immunotherapy Injections completed SCOTTY RICE [address] [facility],[address] [place] [address], [address], [place] [facility] 10/11/2023 09:44:13 10/04/19 24 Allergy Immunotherapy Injections completed SCOTTY GUTHRIE [address] [place] [address], [address], [place] [facility] 10/04/2023 12:12:37 09/27/19 24 Allergy Immunotherapy Injections completed JUAQUIN YAÑEZ RN [address], [place], [address], [place] [facility] 09/27/2023 10:51:29 09/20/19 24 Allergy Immunotherapy Injections completed JUAQUIN YAÑEZ RN [address], [place], [address], [place] [facility] 09/20/2023 10:20:29 09/13/19 24 Allergy Immunotherapy Injections completed SCOTTY RICE [address], [place], [address], [place] [facility] 09/13/2023 12:56:00 09/05/19 24 Allergy Immunotherapy Injections completed JUAQUIN YAÑEZ RN [address], [place], [address], [place] [facility] 09/05/2023 09:56:55 08/31/19 24 Allergy Immunotherapy Injections completed SCOTTY RICE [address] [place] [address], [address], [place] [facility] 08/31/2023 09:14:03 08/23/19 24 Allergy Immunotherapy Injections completed SCOTTY GUTHRIE [address], [place], [address], [place] [facility] 08/23/2023 09:35:11 08/17/19 24 Allergy Immunotherapy Injections completed SCOTTY GUTHRIE [address], [place], [address], [place] [facility] 08/17/2023 10:13:24 08/10/19 24 Allergy Immunotherapy Injections completed SCOTTY GUTHRIE [address], [place], [address], [place] [facility] 08/10/2023 11:14:06 08/03/19 24 Allergy Immunotherapy Injections completed JUAQUIN YAÑEZ RN [address], [place], [address], [place] [facility] 08/03/2023 10:25:33 07/27/19 24 Allergy Immunotherapy Injections completed [facility], RMA [address] [facility] [address], [place], [address], [facility] 07/27/2023 10:39:49 07/21/19 24 Allergy Immunotherapy Injections completed [facility], RMA [address], [place], [address], [facility] 07/21/2023 10:29:54 Imaging Results None recorded. Procedure Notes None recorded. Medical Equipment None Reported. Allergies Allergen ID Allergen Name Allergen Category Reaction Reaction Severity Criticality Documentation Date Start Date Code Code System Note Provider Name and Address Organization Details Recorded Time 873512 oxycodone medicatio n Not available Not available Not available 07/19/2023 7804 RxNorm React ion: Dizzi ness, Abdom inal pain, Weakn ess; Not Available [facility] 4 01:20:52 361319 lactose Not available diarrhea Not available Not available 07/19/2023 6211 RxNorm React ion: Diarr hea; Not Available [facility] 4 01:20:53 Medications Name Sig Start Date [...] mg tablet 09/08 completed Medicati on ID: [id number] B rand Name: dwight hill Send Method: [...] Multi-Vit schaefer tablet active Medicati on ID: [id number] B rand Name: Daily Multi-Vi tamin Se [...] (7) tablet 09/08 completed Medicati on ID: [id number] B rand Name: Jenise Wright 03/26 () [place] Method: E-Prescr ibed Sub s Allowed: subs OK Medic ationGen ericName : Jenise Wright 03/26 () Not Available Not Available Not Available Vitals Date Recorded Body height Body weight Provider Name and Address Organization Details Last Updated DateTime 04/23/2024 162.56 cm 11093.47 g Tod Quintanilla [place] [facility] 04/23/2024 09:21:16 Social History None recorded. Functional Status None recorded. Mental Status None recorded. Family History Relationship Description Onset Age of this Age Resolved Age Notes LastModified by Organization Details LastModified Time Mother Asthma [email or web address] Not availab le 04/23/2024 09:21:21 Sister Asthma [email or web address] Not availab le 04/23/2024 09:21:21 Sister Complication of anesthesia [email or web address] Not available 09:21:21 Sister Allergy to food [email or web address] Not available 09:21:21 Medical History Condition Response Allergies/Hayfever Y Heart Problems N Anxiety N Tonsil Infections N Emphysema N Migraines N Thyroid Problems Y Glaucoma N Developmental Delay N Depression N COPD N Nasal or Sinus Problems Y Anemia Y Immune System Disorder N Anesthesia Complications N Heart Attack (NH) N Other Skin Condition N Diabetes N Rhinitis N Bleeding Disorder N Food Allergy Y Hearing Loss Y Arthritis Y Hyperlipidemia N Cancer N Stroke N Dementia N Nasal polyps N Asthma N Sleep Disorder N High Cholesterol N GERD/Reflux N Liver Disease N Headaches N Fibromyalgia N Hypertension N Speech Delay N Kidney Disease N Gynecological HistoryNo gynecological history recorded. Obstetrics History GPAL:G 0 P 0 0 0 0 Past Encounters Encounter ID Performer Location Encounter Start Date Encounter Closed Date Diagnosis/Indication Diagnosis SNOMED-CT Code Diagnosis ICD10 Code Diagnosis Note [id number] JUAQUIN YAÑEZ RN Allergy [address] [facility], [address] [place] [address] 03/28/2024 10:20:37 03/28/2024 10:48:37 Perennial allergic rhinitis 614363409 J30.89 [id number] KEN CARDENAS, [facility] Allergy [address] [facility], [address] [place] [place] [address] 04/03/2024 10:19:02 04/03/2024 10:20:47 Perennial allergic rhinitis 418007942 J30.89 [id number] JOSE VELÁZQUEZ MD [facility] [address] [place] [address] 04/23/2024 09:16:11 04/23/2024 09:38:20 Allergic rhinitis 75368182 J30.89 Doing well with immunother apy. New Epipen prescribed [id number] VALORIE LUCIO, [facility] Allergy [address] [facility] [address] [place] [address] 04/23/2024 09:58:15 04/23/2024 09:59:52 Perennial allergic rhinitis 560697957 J30.89 Health Concerns Section Related Observation LastModified by Organization Detai ls LastModified Time None Recorded Concern Status LastModified by Organization Details LastModified Time None Recorded Payers Encounter Date Sequence Insurance Name Policy Number Policy Roche Covered Member ID Roche Member ID Guarantor Name 04/23/2024 1 [place] [facility] [place] [id number] Shelia Fitzgerald [id number] Shelia Fitzgerald Notes Date Note Type Note Provider Name [...] showed gastritis --omeprazole now JOSE DIXON MD [address] [place] [address], [address], [place] [facility] 04/23/2024 09:37:17 OBGyn Episode No OBEpisode recorded.
--- OUTSIDE RECORDS SUMMARY | 2024-04-25 08:14 | XMS_ITS | Encounter Summary ---
Author Organization [employer] Address [address] [place] [address] Care Team Providers Care Power Plant Installer Name Role Phone Bonnie Ahn MD Primary Care Provider [phone] Reason for Referral * Consultation (Routine) - Pending Review Specialty Diagnoses / Procedures Referred By Mehrdad leung Referred To Contact Plastic Surgery Diagnoses Symptomatic abdominal panniculus Radha West MD [address] [address] Phone: tel: fax: Referral ID Status Reason Start Date Expiration Date Visits Requested Visits Authorized [id number] Pending Review Specialty Services Required 04/03/2024 04/03/2025 1 1 Reason for Visit * Reason Comments Follow-up 3 month follow up Encounter Details Date Type Department Care Team (Late st Contact Info) Description 04/03/2024 9:00 AM EST Office Visit Bariatric Surgery - [place] [address] [address] Radha West MD [address] [address] Obesity, Class I, BMI 30-34.9 (Primary Dx); Symptomatic abdominal panniculus Social History Tobacco Use Types Packs/Day Years [...] Orientation Straight 02/01/2024 3: 01 PM EST documented as of this encounter Last Filed Vital Signs Vital Sign Reading [...] Mass Index 33.81 04/03/2024 9:26 AM EST documented in this encounter Ordered Prescriptions Prescription Sig Dispense Quantity Refills Last Filled Start Date End Date buPROPion XL (WELLBUTRIN XL) 150 mg 24 hr tabletIndications: Obesity, Class I, BMI 30-34.9 Take 1 tablet (150 mg total) by mouth 1 (one) time each day in the morning. 30 each 2 04/03/2024 07/02/2024 topiramate (TOPAMAX) 100 mg tabletIndications: Obesity, Class I, BMI 30-34.9 Take 1 tablet (100 mg total) by mouth 1 (one) time each day. 30 each 2 04/03/2024 07/02/2024 documented in this encounter Progress Notes * Radha West MD - 04/03/2024 9:00 AM EST Ms. Fitzgerald is a 53 y.o. year old female who presents for surgical follow up regarding obesity. HPI: Ms. Fitzgerald has lost 6 lbs since last visit in December. Has been using topiramate and bupropion. Had sleeve in 2016. Has lost over 90 lbs since sleeve. Had insomnia with phentermine. BMI is 33.81. ROS: GENERAL: No malaise, significant unintentional weight loss, fever, chills or night sweats. HEENT: No changes in hearing or vision, no nose bleeds or other nasal problems. NECK: No lumps, goiter, pain or significant neck swelling RESPIRATORY: No cough, wheezing or shortness of breath CARDIOVASCULAR: No chest pain, leg swelling or palpitations. GI: No abdominal discomfort, nausea, vomiting, or change in bowel habits. : No dysuria, frequency or incontinence. SKIN: skin with rash in the crease of lower abdomen. Has had skin cracks. Very painful. Has used Betameth cream ordered by PCP. HEMATOLOGY: No prolonged bleeding, easy bruisability. LYMPHOLOGY No swollen nodes. MUSCULOSKELETAL: No abnormalities. NEURO: No abnormalities. All other systems reviewed which are negative. PAST MEDICAL HISTORY: Patient Active Problem List Diagnosis Date Noted Date Diagnosed Class 2 obesity with body mass index (BMI) of 35.0 to 35.9 in adult 02/01/2024 Abdominal pannus 08/24/2019 Diastasis recti 08/24/2019 Intertrigo 08/24/2019 Skin laxity 08/24/2019 Excess weight 03/29/2019 Intestinal malabsorption following gastrectomy 11/29/2017 Achalasia 08/19/2017 PAST SURGICAL HISTORY: Past Surgical History: Procedure Laterality Date SECTION PROCEDURE: NC DELIVERY ONLY CHOLECYSTECTOMY 02/23/2017 PROCEDURE: HISTORICAL CHOLECYSTECTOMY OTHER SURGICAL HISTORY 02/23/2017 PROCEDURE: ---- OTHER ----; COMMENT: Hiatal hernia repair, incidental finding during lap sleeve gastrectomy OTHER SURGICAL HISTORY 02/23/2017 PROCEDURE: ---- OTHER ----; COMMENT: Lap sleeve gastrectomy, Dr. West OTHER SURGICAL HISTORY PROCEDURE: ARTHROSCOPY PROCEDURE NEC OTHER SURGICAL HISTORY PROCEDURE: HISTORY OTHER; COMMENT: surgery for blood clot. SOCIAL HISTORY: Social History Tobacco Use Smoking status: Never Smokeless tobacco: Never Substance Use Topics Alcohol use: No FAMILY HISTORY: Family History Problem Relation Name Age of Onset Diabetes Father Hypertension Mother Family Status Relation Name Status Father Mother Alive No partnership data on file MEDICATIONS: Medications Discontinued During This Encounter Medication Reason buPROPion XL (WELLBUTRIN XL) 150 mg 24 hr tablet Reorder topiramate (TOPAMAX) 100 mg tablet Reorder ACTIVE MEDICATIONS: Outpatient Medications Marked as Taking for the 04/03/24 encounter (Office Visit) with Radha West MD Medication Sig Dispense Refill buPROPion XL (WELLBUTRIN XL) 150 mg 24 hr tablet Take 1 tablet (150 mg total) by mouth 1 (one) timeeach day in the morning. 30 each 2 topiramate (TOPAMAX) 100 mg tablet Take 1 tablet (100 mg total) by mouth 1 (one) time each day. 30 each 2 ALLERGIES: Allergies Allergen Reactions Lactose Oxycodone Other Reaction(s): Chest tightness PHYSICAL EXAM: Visit Vitals BP 111/74 Pulse 73 Temp 36.6 ??C (97.8 ??F) (Oral) Ht 1.626 m (64 ) Wt 89.4 kg (197 lb) BMI 33.81 kg/m?? Smoking Status Never BSA 1.94 m?? APPEARANCE: Alert and oriented and in no acute distress EYES: Conjunctiva normal and sclera normal and anicteric. NECK: Neck supple with no adenopathy. HEART: RRR with normal S 1 and S 2, no murmurs, no gallops. LUNG: Clear to auscultation LYMPH NODES: No gross cervical or clavicular lymphadenopathy. ABDOMEN: redness at the crease., EXTREMITIES: Extremities warm and well perfused without clubbing, cyanosis, or edema. SKIN: Skin color and texture normal. No rashes or lesions. NEUROLOGIC: Alert and oriented ??3. No motor or sensory deficits in the extremities. LABS/IMAGING: ASSESSMENT: 1. Obesity, Class I, BMI 30-34.9 PLAN: 1. I renewed the combination. She continues to lose weight. 2. Referred to plastic surgeon for the panniculus. Skin rash has not responded to topical treatment. 3. F/U in 4 months. documented in this encounter Plan of Treatment Upcoming Encounters Date Type Department Care Team (Late st Contact Info) Description 07/26/2024 8:00 AM EDT Office Visit Bariatric Surgery - [place] [address] [facility] [address] [place] [address] Radha West MD 175 [facility] [address] [place] [address] Scheduled Referrals Name Type Priority Associated Diagnoses Order Schedule Ambulatory referral to Plastic Surgery Outpatient Referral Routine Symptomatic abdominal panniculus 1 Occurrences starting 04/03/2024 until 04/03/2025 documented as of this encounter Visit Diagnoses Diagnosis Obesity, Class I, BMI 30-34.9- Primary Symptomatic abdominal panniculus documented in this encounter Discontinued Medications Medication Sig Discontinue Reason Start Date End Da te buPROPion XL (WELLBUTRIN XL) 150 mg 24 hr tablet Take 1 tablet (150 mg total) by mouth 1 (one) time each day in the morning. Reorder 03/22/2024 04/03/2024 topiramate (TOPAMAX) 100 mg tablet Take 1 tablet (100 mg total) by mouth 1 (one) time each day. Reorder 03/22/2024 04/03/2024 documented as of this encounter Care Teams Power Plant Installer Relationship Specialty Start Date End Date Bonnie Ahn MD [address] [place] [address] , [address] [facility] Physician Associ D/B/A: [facility] ESTEFANÍA Larson PCP - General Internal Medicine 03/29/19 documented as of this encounter
--- OUTSIDE RECORDS SUMMARY | 2024-04-25 08:14 | XMS_ITS | Continuity of Care Document ---
Author Organization [place] - [facility], Allergy Address [address] [address] Care Team Providers Care Plate Roller Name Role Phone TOD JENKINS Primary Care Provider Assessment Encounter Date Assessment Date Assessment LastModified by Organization Details LastModified Time 04/03/2024 04/03/2024 Visit With: Juaquin Yañez RN Use of Antihistamine s: No If yes: Vial Test Change in medications: No If yes ? ? ? Increase in asthma symptoms If yes, inhaler use: Reaction to last injections: No If yes: ? ? ? Allergy Symptoms: Other: ? ? ? Missed: Dose Aware of Vial Test Notes:? ? ?will miss next 2 weeks [email or web address] Not available 04/03/2024 10:19:55 Plan of Treatment Reminders Order Date Submit Date Provider Last Modified By Organization Details Last Modified Time Details Appointments [facility]- Allergy f-up 6mon 2024 10:30A M JOSE [...] Organization Details Recorded Time Achalasia of esophagus 33368274 Active 2022 Achalasia NOS; Note: Date Diagnosed : 06/23/2022 2:49 PM (K22.0) Not Available [facility] 4 03:10:05 Respirato ry finding 050657513 Active 2022 Feeling of foreign body in throat; Note: Date Diagnosed : 06/23/2022 2:49 PM (R09.89) Not Available [facility] 4 03:10:05 Cardiovas cular finding 146082936 Active 2022 Feeling of foreign body in throat; Note: Date Diagnosed : 06/23/2022 2:49 PM (R09.89) Not Available [facility] 4 03:10:05 Posterior rhinorrhe a 68560459 Active 2022 Postnasal drip; Note: Date Diagnosed : 06/23/2022 2:49 PM (R09.82) Not Available [facility] 4 03:10:04 Allergic rhinitis 48323842 Active 2023 Allergic rhinitis: Due to other [...] Note: Date Diagnosed : 10/16/19 Not Available [facility] 4 01:25:32 Deviated nasal septum 928432643 Active 2022 Deviated nasal septum; Note: Date Diagnosed : 06/23/2022 2:49 PM (J34.2) Not Available [facility] 4 03:10:04 Perennial allergic rhinitis 837928212 Active 2023 [facility] [address] [facility],[address] [place] [address], [place], [address] , [facility] 4 10:29:26 Snoring 75300210 Active 2023 Snoring; Note: Date Diagnosed : 04/04/2023 8:51 AM (R06.83) Not Available [facility] 4 03:10:03 Obesity 651512029 Active 2023 Other obesity; Note: Date Diagnosed : 04/04/2023 8:51 AM (E66.8) Not Available [facility] 4 03:10:04 Tinnitus of vascular origin 162798998 Active 2023 Pulsatile tinnitus, right ear; Note: Date Diagnosed : 04/04/2023 8:49 AM (H93.A1) Not Available [facility] 4 03:10:04 Sensorine ural hearing loss 41702327 Active 2023 Sensorine ural hearing loss, unilatera l, right ear, with unrestric jaswant hearing on the contralat eral side; Note: Date Diagnosed : 04/04/2023 9:26 AM (H90.41) Not Available [facility] 4 03:10:05 Abnormal auditory perceptio n 93966340 Active 2023 JOSE VELÁZQUEZ MD [address] [place],[address], [place], [address] , [facility] [place] 4 21:49:47 Subjectiv e pulsatile tinnitus of right ear [id number] 68523 Active 2023 JOSE VELÁZQUEZ MD 100 [facility] [place] [place],[address], [place], [address] , [facility] - [facility] [place] 4 21:53:02 Abnormal auditory perceptio n 31830260 Active 2023 JOSE VELÁZQUEZ MD 100 [facility] [place],[address], [place], [address] , [facility] - [facility] [place] 4 09:14:23 Non-aller gic rhinitis 86071512380 1 Active 2023 Oh hernández [place] - [facility] [place] 4 12:14:47 Seasonal allergic rhinitis 744108491 Active 2023 Oh hernández [place] - [facility] [place] 4 12:14:47 Chronic sinusitis 36607915 Active 2023 Oh hernández [place] - [facility] [place] 4 12:16:47 Polyp of nasal cavity 012722140 Active 2023 Oh hernández [place] - [facility] [place] 4 12:17:03 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 Procedures Surgical History Date Name Laterality Status Provider Name and Address Organization Details Recorded Time 04/23/19 25 Allergy Immunotherapy Injections completed SCOTTY RICE [address] [facility] [place],[address] [facility], [place], [address], [facility] - [facility] 04/23/2024 09:59:03 04/03/19 25 Allergy Immunotherapy Injections completed SCOTTY GUTHRIE 100 [facility] [place],[address], [place], [address], [place] [facility] [place] 04/03/2024 10:20:26 03/28/19 25 Allergy Immunotherapy Injections completed JUAQUIN YAÑEZ RN [address], [place], [address], [place] [facility] [place] 03/28/2024 10:48:14 03/20/19 25 Allergy Immunotherapy Injections completed KEN CARDENAS, RMA [address], [place], [address], [place] [facility] [place] 03/20/2024 09:23:24 03/13/19 25 Allergy Immunotherapy Injections completed KEN CARDENAS, RMA 100 [facility] [address], [place], [address], [place] [facility] [place] 03/13/2024 11:58:51 03/08/19 25 Allergy Immunotherapy Injections completed KEN CARDENAS, RMA [address] [place] [address], [address], [place] [facility] [place] 03/08/2024 12:13:50 03/01/20 24 Allergy Immunotherapy Injections completed JUAQUIN YAÑEZ RN 100 [facility] [address] [place] [address], [address], [place] [facility] [place] 03/01/2024 09:38:10 02/23/20 24 Allergy Immunotherapy Injections completed JUAQUIN YAÑEZ RN [address], [place], [address], [place] [facility] [place] 02/23/2024 10:01:24 02/14/20 24 Allergy Immunotherapy Injections completed KEN CARDENAS RMA [address], [place], [address], [place] [facility] [place] 02/14/2024 11:05:56 02/07/20 24 Allergy Immunotherapy Injections completed JUAQUIN YAÑEZ RN 100 [facility] [address], [place], [address], [place] [facility] [place] 02/07/2024 10:14:23 02/03/20 24 Allergy Immunotherapy Injections completed SCOTTY RICE [address], [place], [address], [place] [facility] [place] 02/03/2024 09:34:55 01/24/20 24 Allergy Immunotherapy Injections completed JUAQUIN YAÑEZ RN 100 [facility] [address], [place], [address], [place] [facility] [place] 01/24/2024 10:50:50 01/19/20 24 Allergy Immunotherapy Injections completed SCOTTY RICE [address], [place], [address], [place] [facility] [place] 01/19/2024 13:18:23 01/10/20 24 Allergy Immunotherapy Injections completed SCOTTY RICE 100 [facility] [address] [place] [address], [address], [place] [facility] [place] 01/10/2024 09:42:22 01/03/20 24 Allergy Immunotherapy Injections completed JUAQUIN YAÑEZ RN 100 [facility] [place],[address] [place] [address], [address], [place] [facility] [place] 01/03/2024 11:08:00 12/29/19 24 Allergy Immunotherapy Injections completed SCOTYT RICE 100 [facility] [address] [place] [address], [address], [place] [facility] [place] 12/29/2023 09:38:54 12/21/19 24 Allergy Immunotherapy Injections completed KEN CARDENAS RMIsabela [address] [place] [address], [address], [place] [facility] [place] 12/21/2023 11:30:52 12/14/19 24 Allergy Immunotherapy Injections completed JUAQUIN YAÑEZ RN 100 [facility] [address], [place], [address], [place] [facility] [place] 12/14/2023 11:25:12 11/23/19 24 Allergy Immunotherapy Injections completed KEN CARDENAS RMIsabela [address], [place], [address], [place] [facility] [place] 11/23/2023 10:31:13 11/17/19 24 Allergy Immunotherapy Injections completed KEN CARDENAS RMA [address], [place], [address], [facility] - [facility] [place] 11/17/2023 09:42:16 11/09/19 24 Allergy Immunotherapy Injections completed JUAQUIN YAÑEZ RN 100 [facility],[address], [address], [facility] - [facility] [place] 11/09/2023 11:29:05 11/01/19 24 Allergy Immunotherapy Injections completed JUAQUIN YAÑEZ RN [address] [facility],[address], [address], [facility] - [facility] [place] 11/01/2023 10:43:38 10/27/19 24 Allergy Immunotherapy Injections completed SCOTTY GUTHRIE [address] [facility],[address], [address], [facility] - [facility] [place] 10/27/2023 11:59:30 10/19/19 24 Allergy Immunotherapy Injections completed JUAQUIN YAÑEZ RN [address] [facility],[address], [address], [facility] - [facility] [place] 10/19/2023 10:27:27 10/19/19 24 Air & Speech Audio with Tymps (23288, 66986 & 98597) completed DARRIUS OSMAN MA, CCC-Isabela [address] [facility],[address], [address], [facility] - [facility] [place] 10/19/2023 09:45:15 10/11/19 24 Allergy Immunotherapy Injections completed SCOTTY RICE [address] [facility],[address], [address], [facility] - [facility] [place] 10/11/2023 09:44:13 10/04/19 24 Allergy Immunotherapy Injections completed SCOTTY GUTHRIE 100 [facility],[address], [address], [facility] - [facility] [place] 10/04/2023 12:12:37 09/27/19 24 Allergy Immunotherapy Injections completed JUAQUIN YAÑEZ RN 100 [facility],[address], [address], [facility] - [facility] [place] 09/27/2023 10:51:29 07/16/20 24 Allergy Immunotherapy Injections completed JUAQUIN YAÑEZ RN [address], [place], [address], [place] [facility] [place] 09/20/2023 10:20:29 09/13/19 24 Allergy Immunotherapy Injections completed SCOTTY RICE [address], [place], [address], [place] [facility] [place] 09/13/2023 12:56:00 09/05/19 24 Allergy Immunotherapy Injections completed JUAQUIN YAÑEZ RN [address], [place], [address], [place] [facility] [place] 09/05/2023 09:56:55 08/31/19 24 Allergy Immunotherapy Injections completed SCOTTY RICE [address], [place], [address], [place] [facility] [place] 08/31/2023 09:14:03 08/23/19 24 Allergy Immunotherapy Injections completed KEN CARDENAS RMA [address], [place], [address], [place] [facility] [place] 08/23/2023 09:35:11 08/17/19 24 Allergy Immunotherapy Injections completed KEN CARDENAS RMA [address], [place], [address], [place] [facility] [place] 08/17/2023 10:13:24 08/10/19 24 Allergy Immunotherapy Injections completed KEN CARDENAS RMA [address], [place], [address], [place] [facility] [place] 08/10/2023 11:14:06 08/03/19 24 Allergy Immunotherapy Injections completed JUAQUIN YAÑEZ RN [address], [place], [address], [place] [facility] [place] 08/03/2023 10:25:33 07/27/19 24 Allergy Immunotherapy Injections completed KEN CARDENAS RMA [address], [place], [address], [place] [facility] [place] 07/27/2023 10:39:49 07/21/19 24 Allergy Immunotherapy Injections completed [facility] [address] [facility],[address] [address], [place], [address], [facility] - [facility] 07/21/2023 10:29:54 Imaging Results None recorded. Procedure Notes None recorded. Medical Equipment None Reported. Allergies Allergen ID Allergen Name Allergen Category Reaction Reaction Severity Criticality Documentation Date Start Date Code Code System Note Provider Name and Address Organization Details Recorded Time 810354 oxycodone medicatio n Not available Not available Not available 07/19/2023 7804 RxNorm React ion: Dizzi ness, Abdom inal pain, Weakn ess; Not Available [facility] 4 01:20:52 622547 lactose Not available diarrhea Not available Not available 07/19/2023 6211 RxNorm React ion: Diarr hea; Not Available [facility] 4 01:20:53 Medications Name Sig [...] mg tablet 09/08 completed Medicati on ID: [id number] B lady Name: johnisabela hill Send Method: E-Prescr ibed Sub s Allowed: subs OK Speci al Instruct ion: TAKE 1 TABLET BY MOUTH ONCE DAILY WITH FOOD Med icationG enericNa me: [email or web address] m Not Available Not Available Not Available [...] Multi-Vit schaefer tablet active Medicati on ID: [id number] B rand Name: Daily Multi-Vi tamin Se [...] (7) tablet 09/08 completed Medicati on ID: [id number] B rand Name: Jenise Fe 03/26 () [...] by Organization Details LastModified Time Mother Asthma Not availab le 04/23/2024 09:21:21 Sister Asthma [email or web address] Not availab le 04/23/2024 09:21:21 Sister Complication of anesthesia [email or web address] Not available 09:21:21 Sister Allergy to food [email or web address] Not available 09:21:21 Medical History Condition Response Tonsil Infections N Emphysema N Glaucoma N Depression N COPD N Nasal or Sinus Problems Y Anesthesia Complications N Arthritis Y Hearing Loss Y Cancer N Stroke N High Cholesterol N Liver Disease N Headaches N Fibromyalgia N Speech Delay N Kidney Disease N Allergies/Hayfever Y Heart Problems N Anxiety N Migraines N Thyroid Problems Y Developmental Delay N Anemia Y Immune System Disorder N Heart Attack (SC) N Other Skin Condition N Diabetes N Rhinitis N Bleeding Disorder N Food Allergy Y Hyperlipidemia N Dementia N Nasal polyps N Asthma N Sleep Disorder N GERD/Reflux N Hypertension N Gynecological HistoryNo gynecological history recorded. Obstetrics History GPAL:G 0 P 0 0 0 0 Past Encounters Encounter ID Performer Location Encounter Start Date Encounter Closed Date Diagnosis/Indication Diagnosis SNOMED-CT Code Diagnosis ICD10 Code Diagnosis Note [id number] KEN CARDENAS, RMA Allergy [address] [facility],[address] [place] [address] 03/08/2024 12:13:01 03/08/2024 12:14:59 Perennial allergic rhinitis [id number] J30.89 [id number] KEN CARDENAS, RMA Allergy [address] [place] [address],[facility] [address] [place] [address] 03/13/2024 11:57:35 03/13/2024 11:59:25 Perennial allergic rhinitis [id number] J30.89 [id number] KEN CARDENAS, A Allergy [address] [place] [address],[facility] [address] [place] [address] 03/20/2024 09:19:50 03/20/2024 09:23:46 Perennial allergic rhinitis [id number] J30.89 [id number] JUAQUIN YAÑEZ RN Allergy [address] [place] [address],[facility] [address] [place] [address] 03/28/2024 10:20:37 03/28/2024 10:48:37 Perennial allergic rhinitis [id number] J30.89 [id number] KEN AGRAWAL A Allergy [address] [place] [address],[facility] [address] [place] [address] 04/03/2024 10:19:02 04/03/2024 10:20:47 Perennial allergic rhinitis 471600907 J30.89 Health Concerns Section Related Observation LastModified by Organization Detai ls LastModified Time None Recorded Concern Status LastModified by Organization Details LastModified Time None Recorded Payers Encounter Date Sequence Insurance Name Policy Number Policy Roche Covered Member ID Roche Member ID Guarantor Name 04/03/2024 1 [facility] [facility] [place] [id number] Shelia Haya [id number] Shelia Haya OBGyn Episode No OBEpisode recorded.
--- OUTSIDE RECORDS SUMMARY | 2024-04-25 08:15 | XMS_ITS | Continuity of Care Document ---
Author Organization [place] - [facility], Allergy Address [address] [address] Care Team Providers Care School Photograph Editor Name Role Phone TOD JENKINS Primary Care Provider [phone] Assessment Encounter Date Assessment Date Assessment LastModified by Organization Details LastModified Time 04/23/2024 04/23/2024 Visit With: Juaquin Yañez RN Use of Antihistamine s: No If yes: Vial Test Change in medications: No If yes ? ? ? Increase in asthma symptoms If yes, inhaler use: Reaction to last injections: No If yes: ? ? ? Allergy Symptoms: Other: ? ? ? Missed: 1 week Dose Repeated Aware of Vial Test Notes:? ? ? [email or web address] Not available 04/23/2024 09:59:27 Plan of Treatment Reminders Order Date Submit Date Provider Last Modified By Organization Details Last Modified Time Details Appointments [facility]- Allergy f-up 6mon 2024 10:30A M JOSE [...] Organization Details Recorded Time Achalasia of esophagus 39316862 Active 2022 Achalasia NOS; Note: Date Diagnosed : 06/23/2022 2:49 PM (K22.0) Not Available [facility] 4 03:10:05 Respirato ry finding 484332914 Active 2022 Feeling of foreign body in throat; Note: Date Diagnosed : 06/23/2022 2:49 PM (R09.89) Not Available [facility] 4 03:10:05 Cardiovas cular finding 240233865 Active 2022 Feeling of foreign body in throat; Note: Date Diagnosed : 06/23/2022 2:49 PM (R09.89) Not Available [facility] 4 03:10:05 Posterior rhinorrhe a 18447726 Active 2022 Postnasal drip; Note: Date Diagnosed : 06/23/2022 2:49 PM (R09.82) Not Available [facility] 4 03:10:04 Allergic rhinitis 92920593 Active 2023 Allergic rhinitis: Due to other [...] [facility] 4 01:25:32 Deviated nasal septum 967917193 Active 2022 Deviated nasal septum; Note: Date Diagnosed : 06/23/2022 2:49 PM (J34.2) Not Available [facility] 4 03:10:04 Perennial allergic rhinitis 004709467 Active 2023 [facility] [address] [facility] [address], [place], [address] , [facility] - [facility] 4 10:29:26 Snoring 15934675 Active 2023 Snoring; Note: Date Diagnosed : 04/04/2023 8:51 AM (R06.83) Not Available [facility] 4 03:10:03 Obesity 794525661 Active 2023 Other obesity; Note: Date Diagnosed : 04/04/2023 8:51 AM (E66.8) Not Available [facility] 4 03:10:04 Tinnitus of vascular origin 085493346 Active 2023 Pulsatile tinnitus, right ear; Note: Date Diagnosed : 04/04/2023 8:49 AM (H93.A1) Not Available [facility] 4 03:10:04 Sensorine ural hearing loss 21516779 Active 2023 Sensorine ural hearing loss, unilatera l, right ear, with unrestric jaswant hearing on the contralat eral side; Note: Date Diagnosed : 04/04/2023 9:26 AM (H90.41) Not Available [facility] 4 03:10:05 Abnormal auditory perceptio n 73391397 Active 2023 JOSE VELÁZQUEZ MD [address] [facility], [place], [address] , [facility] - [facility] 4 21:49:47 Subjectiv e pulsatile tinnitus of right ear [id number] 51585 Active 2023 JOSE VELÁZQUEZ MD [address] [facility], [place], [address] , [facility] - [facility] 4 21:53:02 Abnormal auditory perceptio n 02272546 Active 2023 JOSE VELÁZQUEZ MD [address] [facility], [place], [address] , 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 Procedures Surgical History Date Name Laterality Status Provider Name and Address Organization Details Recorded Time 04/23/19 25 Allergy Immunotherapy Injections completed SCOTTY RICE [address] [facility] [facility], [place], [address], [facility] - [facility] 04/23/2024 09:59:03 04/03/19 25 Allergy Immunotherapy Injections completed SCOTTY GUTHRIE [address], [place], [address], [place] - [facility] 04/03/2024 10:20:26 03/28/19 25 Allergy Immunotherapy Injections completed JUAQUIN YAÑEZ RN [address], [place], [address], [place] - [facility] 03/28/2024 10:48:14 03/20/19 25 Allergy Immunotherapy Injections completed KEN CARDENAS, RMA [address] [address], [place], [address], [place] - [facility] 03/20/2024 09:23:24 03/13/19 25 Allergy Immunotherapy Injections completed KEN CARDENAS, RMA [address] [address], [place], [address], [place] [facility] 03/13/2024 11:58:51 03/08/19 25 Allergy Immunotherapy Injections completed KEN CARDENAS, RMA [address] [place] [address], [address], [place] [facility] 03/08/2024 12:13:50 03/01/20 24 Allergy Immunotherapy Injections completed JUAQUIN YAÑEZ RN [address] [place] [address], [address], [place] [facility] 03/01/2024 09:38:10 02/23/20 24 Allergy Immunotherapy Injections completed JUAQUIN YAÑEZ RN [address] [address] [place] [address], [address], [place] [facility] 02/23/2024 10:01:24 02/14/20 24 Allergy Immunotherapy Injections completed KEN CARDENAS RMA [address] [address], [place], [address], [place] [facility] 02/14/2024 11:05:56 02/07/20 24 Allergy Immunotherapy Injections completed JUAQUIN YAÑEZ RN [address],[place] [address], [place], [address], [place] [facility] 02/07/2024 10:14:23 02/03/20 24 Allergy Immunotherapy Injections completed SCOTTY RICE [address], [place], [address], [place] [facility] 02/03/2024 09:34:55 01/24/20 24 Allergy Immunotherapy Injections completed JUAQUIN YAÑEZ RN [address] [facility] [place] [address], [address], [place] [facility] 01/24/2024 10:50:50 01/19/20 24 Allergy Immunotherapy Injections completed SCOTTY RICE [address],[place] [address], [place], [address], [place] [facility] 01/19/2024 13:18:23 01/10/20 24 Allergy Immunotherapy Injections completed SCOTTY RICE [address] [place] [address], [address], [place] [facility] 01/10/2024 09:42:22 01/03/20 24 Allergy Immunotherapy Injections completed JUAQUIN YAÑEZ RN [address] [facility] [place] [address], [address], [place] [facility] 01/03/2024 11:08:00 12/29/19 24 Allergy Immunotherapy Injections completed SCOTTY RICE [address] [place] [address], [address], [place] [facility] 12/29/2023 09:38:54 12/21/19 24 Allergy Immunotherapy Injections completed KEN CARDENAS RMIsabela [address] [address] [place] [address], [address], [place] [facility] 12/21/2023 11:30:52 12/14/19 24 Allergy Immunotherapy Injections completed JUAQUIN YAÑEZ RN [address] [place] [address], [address], [place] [facility] 12/14/2023 11:25:12 11/23/19 24 Allergy Immunotherapy Injections completed KEN CARDENAS RMIsabela [address],[place], [place], [address], [place] [facility] 11/23/2023 10:31:13 11/17/19 24 Allergy Immunotherapy Injections completed KEN CARDENAS RMA [address], [place], [address], [facility] - [facility] 11/17/2023 09:42:16 11/09/19 24 Allergy Immunotherapy Injections completed JUAQUIN YAÑEZ RN 100 [facility],[address], [address], [facility] - [facility] 11/09/2023 11:29:05 11/01/19 24 Allergy Immunotherapy Injections completed JUAQUIN YAÑEZ RN [address] [facility],[address], [address], [facility] - [facility] 11/01/2023 10:43:38 10/27/19 24 Allergy Immunotherapy Injections completed SCOTTY GUTHRIE [address] [facility],[address], [address], [facility] - [facility] 10/27/2023 11:59:30 10/19/19 24 Allergy Immunotherapy Injections completed JUAQUIN YAÑEZ RN [address] [facility],[address], [address], [facility] - [facility] 10/19/2023 10:27:27 10/19/19 24 Air & Speech Audio with Tymps (73586, 11908 & 69098) completed DARRIUS OSMAN MA, CCC-Isabela [address] [facility],[address], [address], [facility] - [facility] 10/19/2023 09:45:15 10/11/19 24 Allergy Immunotherapy Injections completed SCOTTY RICE [address] [facility],[address], [address], [facility] - [facility] 10/11/2023 09:44:13 10/04/19 24 Allergy Immunotherapy Injections completed SCOTTY GUTHRIE [address] [facility],[address], [address], [facility] - [facility] 10/04/2023 12:12:37 09/27/19 24 Allergy Immunotherapy Injections completed JUAQUIN YAÑEZ RN [address] [facility],[address], [address], [facility] - [facility] 09/27/2023 10:51:29 09/20/19 24 Allergy Immunotherapy Injections completed JUAQUIN YAÑEZ RN [address], [place], [address], [place] [facility] 09/20/2023 10:20:29 09/13/19 24 Allergy Immunotherapy Injections completed SCOTTY RICE [address], [place], [address], [place] [facility] 09/13/2023 12:56:00 09/05/19 24 Allergy Immunotherapy Injections completed JUAQUIN YAÑEZ RN [address], [place], [address], [place] [facility] 09/05/2023 09:56:55 08/31/19 24 Allergy Immunotherapy Injections completed SCOTTY RICE [address], [place], [address], [place] [facility] 08/31/2023 09:14:03 08/23/19 24 Allergy Immunotherapy Injections completed KEN CARDENAS RMA [address], [place], [address], [place] [facility] 08/23/2023 09:35:11 08/17/19 24 Allergy Immunotherapy Injections completed KEN CARDENAS RMA [address], [place], [address], [place] [facility] 08/17/2023 10:13:24 08/10/19 24 Allergy Immunotherapy Injections completed KEN CARDENAS RMA [address], [place], [address], [place] [facility] 08/10/2023 11:14:06 08/03/19 24 Allergy Immunotherapy Injections completed JUAQUIN YAÑEZ RN [address], [place], [address], [place] [facility] 08/03/2023 10:25:33 07/27/19 24 Allergy Immunotherapy Injections completed KEN CARDENAS RMA [address], [place], [address], [place] [facility] 07/27/2023 10:39:49 07/21/19 [address] [facility], [facility] [address] [facility],[address] [address], [place], [address], [place] [facility] 07/21/2023 10:29:54 Imaging Results None recorded. Procedure Notes None recorded. Medical Equipment None Reported. Allergies Allergen ID Allergen Name Allergen Category Reaction Reaction Severity Criticality Documentation Date Start Date Code Code System Note Provider Name and Address Organization Details Recorded Time [id number] oxycodone medicatio n Not available Not available Not available 07/19/2023 7804 RxNorm React ion: Dizzi ness, Abdom inal pain, Weakn ess; Not Available [facility] 4 01:20:52 680782 lactose Not available diarrhea Not available Not available 07/19/2023 6211 RxNorm React ion: Diarr hea; Not Available [facility] 4 01:20:53 Medications Name Sig Start Date [...] mg tablet 09/08 completed Medicati on ID: [id number] B lady Name: johnisabela hill Send Method: E-Prescr ibed Sub s Allowed: subs OK Speci al Instruct ion: TAKE 1 TABLET BY MOUTH ONCE DAILY WITH FOOD Med icationG enericNa me: [email or web address] Not Available Not Available Not Available [...] Multi-Vit schaefer tablet active Medicati on ID: [id number] B rand Name: Daily Multi-Vi tamin Se [...] (7) tablet 09/08 completed Medicati on ID: [id number] B rand Name: Jenise Wright 03/26 () Sen d Method: E-Prescr ibed Sub s Allowed: subs OK Medic ationGen ericName : Jenise Wright 03/26 () Not Available Not Available Not Available Vitals Date Recorded Body height Body weight Provider Name and Address Organization Details Last Updated DateTime 04/23/2024 162.56 cm 78789.47 g Tod Quintanilla [place] - [facility] 04/23/2024 09:21:16 Social History None recorded. Functional Status None recorded. Mental Status None recorded. Family History Relationship Description Onset Age of this Age Resolved Age Notes LastModified by Organization Details LastModified Time Mother Asthma Not availab le 04/23/2024 09:21:21 Sister Asthma [email or web address] Not availab le 04/23/2024 09:21:21 Sister Complication of anesthesia [email or web address] Not available 09:21:21 Sister Allergy to food Not available 09:21:21 Medical History Condition Response Allergies/Hayfever Y Heart Problems N Anxiety N Tonsil Infections N Emphysema N Migraines N Thyroid Problems Y Glaucoma N Depression N COPD N Developmental Delay N Nasal or Sinus Problems Y Anemia Y Immune System Disorder N Anesthesia Complications N Heart Attack ([place]) N Other Skin Condition N Diabetes N Rhinitis N Bleeding Disorder N Food Allergy Y Arthritis Y Hearing Loss Y Hyperlipidemia N Cancer N Stroke N Dementia N Nasal polyps N Asthma N High Cholesterol N Sleep Disorder N GERD/Reflux N Liver Disease N Headaches N Fibromyalgia N Hypertension N Speech Delay N Kidney Disease N Gynecological HistoryNo gynecological history recorded. Obstetrics History GPAL:G 0 P 0 0 0 0 Past Encounters Encounter ID Performer Location Encounter Start Date Encounter Closed Date Diagnosis/Indication Diagnosis SNOMED-CT Code Diagnosis ICD10 Code Diagnosis Note [id number] JUAQUIN YAÑEZ RN Allergy [address] [facility] [place] [address] 03/28/2024 10:20:37 03/28/2024 10:48:37 Perennial allergic rhinitis 232747512 J30.89 [id number] KEN CARDENAS, A Allergy [address] [facility] [facility] [place] [address] 04/03/2024 10:19:02 04/03/2024 10:20:47 Perennial allergic rhinitis 775088341 J30.89 [id number] JOSE VELÁZQUEZ MD [facility] 100 [place] [address] 04/23/2024 09:16:11 04/23/2024 09:38:20 Allergic rhinitis 88851399 J30.89 Doing well with immunother apy. New Epipen prescribed [id number] VALORIE LUCIO, [facility] Allergy [address] [facility] 100 [facility] [place] [address] 04/23/2024 09:58:15 04/23/2024 09:59:52 Perennial allergic rhinitis 225321419 J30.89 Health Concerns Section Related Observation LastModified by Organization Detai ls LastModified Time None Recorded Concern Status LastModified by Organization Details LastModified Time None Recorded Payers Encounter Date Sequence Insurance Name Policy Number Policy Roche Covered Member ID Roche Member ID Guarantor Name 04/23/2024 1 [facility] [id number] Shelia Fitzgerald [id number] Shelia Fitzgerald Notes Date Note Type [...] showed gastritis --omeprazole now JOSE DIXON MD [address] [place] [address], [place], [address], [facility] - [facility] 04/23/2024 09:37:17 OBGyn Episode No OBEpisode recorded.
--- NOTE | 2024-04-25 08:26 | A.OFFPC_ITS ---
Vital Signs 04/25/24 08:27 Height 5 ft 4 in Weight 197 lb BMI 33.8 BP 112/76 Blood Pressure Location Lt brachial Position Sitting Intake Visit Reasons: Annual Exam Intake Note: Patient here for an annual physical exam Senior Supply Chain Analyst Required: Yes Senior Supply Chain Analyst Language: Travertine Installer Name: Bonnie Ahn MD Information Interpreted: non-clinical & clinical Accompanied by: Self / Same As Patient Allergies lactose Allergy (Intermediate, Verified 04/25/24 08:51) diarrhea oxycodone Adverse Reaction (Mild, Verified 04/25/24 08:51) Vomiting, stomach pain Medication List - Last Reconciled 04/25/24 by Bonnie Ahn MD apixaban (Eliquis) 2.5 mg PO BID betamethasone dipropionate 0.05% 1 appl topical BID PRN 2 weeks bupropion HCl XL 150 mg PO DAILY cyclobenzaprine 10 mg PO TID PRN 30 days epinephrine (EpiPen) 0.3 mg IM Q4H PRN ferrous sulfate (Feosol) 325 mg PO DAILY levothyroxine 25 mcg PO QAM 90 days multivitamin 1 tab PO DAILY omeprazole 20 mg PO BID topiramate 100 mg PO DAILY tramadol 50 mg PO DAILY PRN 30 days Tobacco use date assessed: 04/25/24 Dental Screening Dental Screen Date: 04/25/24 Did you have a dental visit in the last 12 months?: Yes Did you have a dental problem in the last 6 months where you did not have access to dental care?: No Was dental information given to patient?: Patient has dentist HPI HPI Comments History of Present Illness Details The patient is a 54-year-old female presenting with an annual physical examination. She has a history of lactose intolerance, characterized by diarrhea after ingestion. The patient reports an adverse reaction to oxycodone, manifesting as nausea and vomiting. She also has a history of a coagulation disorder, previously diagnosed as leg thrombosis, for which she is currently managed with apixaban and continues to follow up with hematology. She has recently returned from a vacation in [place] and reports significant knee pain, likely exacerbated by extensive walking during the trip. Her past medical history includes obesity and iron deficiency, for which she is taking oral iron supplements. She has history of DVT on chronic anticoagulation and this is follow by Hematology-Oncology. The patient was diagnosed with hypothyroidism and is on levothyroxine 25 mcg. Chronic gastritis was identified during an endoscopy procedure and the patient reported receiving omeprazole for symptom management; a follow-up endoscopy is scheduled. There is a documented history of ulcers observed during previous medical investigations. She also reports an allergic rash treated with topical medication, although it has not resolved. Her joint pain, specifically in the knees ? potentially due to underlying arthritis, is aggravated by physical activity and worsened without the use of prescribed analgesics during her travels. She complains of right elbow pain that started few days ago. Has full active range of motion. - Mammography in the previous month with normal results. - Last Tetanus (Tdap) vaccine over 10 ye ars ago; updated today. - Colonoscopy in January; unremarkable findings. - Endoscopy in January detected gastrit is; repeat scheduled in July. - Scheduled fluoroscopy for evaluation o f ulcers and gastritis. - Bloodwork including thyroid function t ests and cholesterol assessment planned. - Discussed referral to plastic surgery for panniculectomy. - Encouraged lifestyle modifications for weight management and joint health. [facility] Medical History (Updated 04/25/24 @ 09:04 by Bonnie Ahn MD) Obesity (BMI 35.0-39.9 without comorbidity) Deep vein thrombosis (07/28/22) Class 1 obesity with body mass index (BMI) of 34.0 to 34.9 in adult Thrombocytopenia Physical exam Pancytopenia Osteoarthritis of left knee Hypovitaminosis D Toenail deformity Obesity Left shoulder pain Constipation by delayed colonic transit Hypothyroidism Surgical History H/O gastric sleeve Venous insufficiency of left leg History of surgery History of cholecystectomy History of arthroscopy of left knee History of section Family History Father Diabetes CVD (cardiovascular disease) Myocardial infarction Mother CVD (cardiovascular disease) Hypertension Maternal Grandmother No problems noted. Maternal Grandfather Prostate cancer Family/Other Mental health disorder Social History Household Members: Spouse and Children Housing: House Are you a primary health careers instructor to a significant other at home: No Do you presently have visiting nurse or other home services: No Alcohol intake: never Comment: S3 Patient Tobacco Use Status: Never used Tobacco e-Cigarette/Vaping Use: Never Used Second Hand Smoke Exposure: No service: No Current occupational status: employed Current occupational exposures/hazards: No Cognitive needs: No Hearing needs: No Vision needs: Yes Questionnaire PHQ-9 Over the last 2 weeks, how often have you been bothered by any of the following problems? 1. Little interest or pleasure in doing things: not at all 2. Feeling down, depressed, or hopeless: not at all 3. Trouble falling or staying asleep, or sleeping too much: not at all 4. Feeling tired or having little energy: not at all 5. Poor appetite or overeating: not at all 6. Feeling bad about yourself - or that you are a failure or have let yourself or your family down: not at all 7. Trouble concentrating on things, such as reading the newspaper or watching television: not at all 8. Moving or speaking so slowly that other people could have noticed. Or the opposite - being so fidgety or restless that you have been moving around a lot more than usual: not at all 9. Thoughts that you would be better off or of hurting yourself in some way: not at all Total score: 0 Depression Screening Interpretation: Negative Depression Screening Done: Yes 28376 - PHQ-9 Billing: Yes Source: Developed by Drs. Emery Lindquist, Judy Marie, Henry Sethi and colleagues, with an educational michelle from [employer]. Thrive Questionnaire Date Thrive assessed: 04/25/24 I am a: Patient What is your living situation today?: I have a steady place to live Within the past 12 months, did the food you bought not last and you didn't have the money to get more?: Never true Within the past 12 months, did you worry whether your food would run out before you got money to buy more?: Never true Do you have trouble paying for medicines?: No Do you have trouble getting transportation to medical appointments?: No Do you have trouble paying your heating and electricity bill?: No Do you have trouble taking care of your child, family member or friend?: No Do you have trouble with day-to-day activities such as bathing, preparing meals, shopping, managing finances, etc.?: No Are you currently unemployed and looking for a job?: No Are you interested in more education?: No Please select the resources that you would like help with: None Currently or been in a relationship where the following occur: No concerns reported THRIVE Score: 0 AUDIT C Alcohol Use Questionnaire (AUDIT-C) 1. How often do you have a drink containing alcohol?: Never Total Score: 0 Score Reviewed/Action Taken: No DUSTY-7 AMB Questionnaire DUSTY-7 Date DUSTY - 7 assessed: 04/25/24 Feeling nervous, anxious, or on edge: 0 = Not at all Not being able to stop or control worryin = Not at all Worrying too much about different things: 0 = Not at all Trouble relaxin = Several days Being so restless that it is hard to sit still: 0 = Not at all Becoming easily annoyed or irritable: 0 = Not at all Feeling afraid as if something awful might happen: 0 = Not at all Total DUSTY-7 score (0-4 normal; 5-9 mild; 10-14 moderate; 15-21 severe): 1 Source: Developed by Drs. Emery Lindquist, Judy Marie, Henry Sethi and colleagues, with an educational michelle from [employer]. DUSTY-7 Assessment Billing DUSTY-7 Assessment Tool: DUSTY-7 Assessment 76987 Review of Systems Const All systems reviewed & are unremarkable except as noted in HPI and below Card Denies chest pain at rest, Denies chest pain with activity, Denies edema, Denies irregular heart rhythm, Denies claudication, Denies dyspnea, Denies dyspnea on exertion, Denies orthopnea, Denies paroxysmal nocturnal dyspnea and Denies slow heart rate Resp Denies cough, Denies dyspnea and Denies dyspnea on exertion GI Denies abdominal pain, Denies change in bowel habits, Denies excessive flatus, Denies nausea and Denies vomiting Denies urinary incontinence, Denies urinary hesitancy and Denies urinary urgency Musc Denies atrophy, Denies deformity, Reports arthralgias and Denies limited range of motion Physical exam (Primary Care) Vital Signs: Last Vital Signs BP 112/76 04/25/24 08:27 BMI result Body Mass Index 33.8 BMI Assessment/Plan discussion: High BMI High, discussed plan: lifestyle, weight reduction, dietary and physical activity Tobacco/Smoking Status: Tobacco use Status Tobacco use date assessed 04/25/24 04/25/24 08:30 Patient Tobacco Use Status Never used Tobacco 04/25/24 08:30 e-Cigarette/Vaping Use Never Used 04/25/24 08:30 PHQ-9: PHQ-9 Score PHQ-9: Total score 0 04/25/24 09:11 Depression Screening Interpretation: Negative Thrive Assessment: Date of Thrive Assessment Date Thrive assessed 04/25/24 04/25/24 08:30 Currently or been in a relationship where the following occur: No concerns reported [facility] Head: Yes normal to inspection, Yes normocephalic and Yes atraumatic Ears: external ears normal Eyes General: appearance normal, both eyes and all related structures Eyelids: Yes eyelids normal Conjunctivae: conjunctivae normal Neck Neck: Yes normal visual inspection and Yes supple Resp Effort & Inspection: normal respiratory effort Auscultation: clear to auscultation bilaterally Cardio Jugular venous distension: no JVD Rate: regular rate Rhythm: regular rhythm Heart sounds: S1 normal heart sound present and S2 normal heart sound present GI Inspection: Yes normal to inspection Palpation (GI): Soft to palpation and nontender Auscultation: normal bowel sounds Skin General skin exam: no rashes or lesions noted Neuro General: no focal motor deficits Extrem General: Yes full ROM Psych Appearance: grossly normal Immunizations Boostrix Tdap 2.5 Lf unit-8 mcg-5 Lf/0.5 mL intramuscular syringe Performing Provider: Bonnie Ahn MD [facility] Administered by: SCOTTY Tinoco on 04/25/24 09:11 Dose Route Admin Location Dispensed Lot Number Expiration Date [facility] City Planning Teacher 0.5 mL IM Left Deltoid 0.5 mL [id number] 06/23/26 91017-542-55 [employer] VIS Given Date VIS Provided VIS Publication Date 04/25/24 Single Vaccine 20 Eligibility Eligibility Date Funding Source Not [facility] Eligible 04/25/24 Private Coding Level of Care Code Est Pt Level 3 (39027) Est Pt Prev Care 40-64y(50713) Diagnoses Physical exam Z00.00 Chronic deep vein thrombosis (DVT) of distal vein of left lower extremity I82.5Z2 Affected thrombotic vein of extremity: unspecified lower extremity distal vein Chronicity: chronic DVT location: lower extremity Laterality: left Right elbow pain M25.521 Additional Codes DUSTY-7 Assessment Billing - DUSTY-7 Assessment Tool: DUSTY-7 Assessment 99655 ([id number]) PHQ-9 - 18294 - PHQ-9 Billing: Yes ([id number]) Time Spent (min) 33 Assessment & Plan Assessment & Plan (1) Physical exam: Code(s): Z00.00 - Encounter for general adult medical examination without abnormal findings Category: Medical (2) Deep vein thrombosis: Onset Date: 07/28/22 Comment: 07/28/2022 - Left leg thrombectomy Code(s): I82.409 - Acute embolism and thrombosis of unspecified deep veins of unspecified lower extremity Category: Medical Qualifiers: Affected thrombotic vein of extremity: unspecified lower extremity distal vein Chronicity: chronic DVT location: lower extremity Laterality: left Qualified Code(s): I82.5Z2 - Chronic embolism and thrombosis of unspecified deep veins of left distal lower extremity (3) Right elbow pain: Code(s): M25.521 - Pain in right elbow Category: Medical Plan - Administer Tdap vaccine today. - Arrange repeat endoscopy in July to monitor gastritis. - Schedule fluoroscopy for further evaluation of ulcers and gastritis. - Continue current medication regimen including iron supplement and levothyroxine. - Monitor and reassess joint pain management strategy, consider physical therapy options. - Encourage weight management through dietary modifications and safe exercise routines. - Proceed with referral process and coordination for panniculectomy as discussed with prior specialists. Patient was informed and verbally consented to the use of an ambient scribe for clinic note documentation during this visit. During this visit, I reviewed the patient's medical history and addressed the ongoing management of her chronic conditions, including her coagulation disorder and depression. I emphasized the importance of adherence to her medication regimen, including levothyroxine and iron supplements. We have updated her Tdap vaccine as per health maintenance protocols. We discussed the management of her gastritis and planned a follow-up endoscopy in July to monitor her progress. I explained the need for fluoroscopy to gain further insights into her ulcer condition. The patient was informed about managing joint pain, particularly in her knees, with potential physical therapy as a non-pharmacologic approach. I reinforced the referral to a plastic surgeon regarding her obesity-related panniculectomy and encouraged her compliance with weight management strategies to alleviate joint strain. Orders: Orders XR elbow RT 2V Today M25.521 - Pain in right elbow Lipid Panel Today Z00.00 - Encounter for general adult medical examination wit hout abnormal findings Comprehensive [place]. Panel Fast Today Z00.00 - Encounter for general adult medical examination without abnormal findings Thyroid Stimulating Hormone Today E03.9 - Hypothyroidism, unspecified TDaP Immunization Today Z23 - Encounter for immunization Medications: Refilled tramadol 50 mg PO DAILY PRN 30 tabs 0RF pain 30 days Patient Instructions: - Take all medications as prescribed. - Follow up for endoscopy in July and attend scheduled fluoroscopy appointment. - Maintain dietary restrictions for lactose intolerance. - Engage in joint-friendly exercises to alleviate knee pain. - Attend the follow-up for panniculectomy consult. - Return for routine lab tests in fasting state as directed. - Seek medical attention if severe symptoms or new health concerns arise.
[2024-04-25 08:27] VITALS: BP 112/76; BMI 33.8
== END 2024-04-25 09:11 | disposition home or self-care (01) ==
PROVIDERS: PCP Internal Medicine; Visit Provider Internal Medicine
DX: Z00.00 Encounter for general adult medical examination without abnormal findings (principal); M25.521 Pain in right elbow; I82.5Z2 Chronic embolism and thrombosis of unspecified deep veins of left distal lower extremity; Z23 Encounter for immunization

== ENCOUNTER → 2024-04-25 08:08 | Outpatient (BNVA) | payer BC, SELFPAY | PROVIDERS: PCP Internal Medicine; Visit Provider Internal Medicine | DX: Z00.00 Encounter for general adult medical examination without abnormal findings (principal); Z23 Encounter for immunization; M25.521 Pain in right elbow; E03.9 Hypothyroidism, unspecified; Z86.718 Personal history of other venous thrombosis and embolism; Z79.01 Long term (current) use of anticoagulants; Z79.899 Other long term (current) drug therapy | CPT/HCPCS: 90471; 90715; 96127 ==

== ENCOUNTER 2024-04-25 09:16 | Outpatient (REF) | payer BC, SELFPAY ==
--- NOTE | ~2024-04-25 | XR_ITS ---
EXAMINATION: XR ELBOW, RIGHT CLINICAL INFORMATION: M25.521 - Pain in right elbow COMPARISON: None available. TECHNIQUE: AP, lateral, and oblique views of the right elbow. FINDINGS: The bones and soft tissues are normal. No fracture or joint effusion. Alignment is anatomic. Joint spaces are maintained. XR/XR elbow RT 2V IMPRESSION: Normal right elbow. Electronically signed by: Adan Green MD 04/25/2024 01:14 PM DANETTE
--- OUTSIDE RECORDS SUMMARY | 2024-04-25 09:29 | XMS_ITS | Clinical Summary ---
Author Organization [address] [facility] Address [address] [place] [address] Phone Care Team Providers Care Material Attendant Name Role Phone Bonnie Ahn MD Primary Care Provider [phone] Allergies Active Allergy Reactions Criticality Noted Date [...] AM EST Office Visit Bariatric Surgery - [address] [place] [phone] Radha West MD Obesity, Class I, [...] HISTORY PROCEDURE: ARTHROSCOPY PROCEDURE NEC SECTION PROCEDURE: DE DELIVERY ONLY OTHER SURGICAL HISTORY PROCEDURE: HISTORY [...] AM EDT Office Visit Bariatric Surgery - [place] [address] [facility] [address] [place] [phone] Radha West MD [address] [facility] [address] [place] [address] Health Maintenance Due Date Last Done Comments [...] to complete this topic Insurance Care Teams Material Attendant Relationship Specialty Start Date End Date Jimy, Bonnie R, MD [address] [facility] , [address] [facility] D/B/A: [facility] ESTEFANÍA Larson PCP - General Internal Medicine 03/29/19
--- OUTSIDE RECORDS SUMMARY | 2024-04-25 09:29 | XMS_ITS | Continuity of Care Document ---
Author Organization [place] - [facility], Allergy Address [address] [address] Care Team Providers Care Bill Checker Name Role Phone TOD JENKINS Primary Care Provider Assessment Encounter Date Assessment Date Assessment LastModified by Organization Details LastModified Time 03/28/2024 03/28/2024 Visit With: Juaquin Yañez RN Use of Antihistamine s: No If yes: Vial Test Change in medications: No If yes ? ? ? Increase in asthma symptoms No Asthma Hx If yes, inhaler use: Reaction to last injections: No If yes: ? ? ? Allergy Symptoms: Other: ? ? ? Missed: Dose Aware of Vial Test Notes:? ? ? [email or web address] Not available 03/28/2024 10:48:22 Plan of Treatment Reminders Order Date Submit Date Provider Last Modified By Organization Details Last Modified Time Details Appointments [facility]- Allergy f-up 6mon 2024 10:30A M JOSE [...] Organization Details Recorded Time Achalasia of esophagus 24398280 Active 2022 Achalasia NOS; Note: Date Diagnosed : 06/23/2022 2:49 PM (K22.0) Not Available [facility] 4 03:10:05 Respirato ry finding 884386900 Active 2022 Feeling of foreign body in throat; Note: Date Diagnosed : 06/23/2022 2:49 PM (R09.89) Not Available [facility] 4 03:10:05 Cardiovas cular finding 089545525 Active 2022 Feeling of foreign body in throat; Note: Date Diagnosed : 06/23/2022 2:49 PM (R09.89) Not Available [facility] 4 03:10:05 Posterior rhinorrhe a 95077007 Active 2022 Postnasal drip; Note: Date Diagnosed : 06/23/2022 2:49 PM (R09.82) Not Available [facility] 4 03:10:04 Allergic rhinitis 58780742 Active 2023 Allergic rhinitis: Due to other [...] Date Diagnosed : 10/16/19 Not Available [facility] 4 01:25:32 Deviated nasal septum 491243687 Active 2022 Deviated nasal septum; Note: Date Diagnosed : 06/23/2022 2:49 PM (J34.2) Not Available [facility] 4 03:10:04 Perennial allergic rhinitis 400843854 Active [address],[place] [address], [place], [address] , [facility] - [facility] 4 10:29:26 Snoring 74270142 Active 2023 Snoring; Note: Date Diagnosed : 04/04/2023 8:51 AM (R06.83) Not Available [facility] 4 03:10:03 Obesity 580486638 Active 2023 Other obesity; Note: Date Diagnosed : 04/04/2023 8:51 AM (E66.8) Not Available [facility] 4 03:10:04 Tinnitus of vascular origin 782764604 Active 2023 Pulsatile tinnitus, right ear; Note: Date Diagnosed : 04/04/2023 8:49 AM (H93.A1) Not Available [facility] 4 03:10:04 Sensorine ural hearing loss 10095050 Active 2023 Sensorine ural hearing loss, unilatera l, right ear, with unrestric jaswant hearing on the contralat eral side; Note: Date Diagnosed : 04/04/2023 9:26 AM (H90.41) Not Available [facility] 4 03:10:05 Abnormal auditory perceptio n 55785688 Active 2023 JOSE VELÁZQUEZ MD [address], [place], [address] , [facility] - [facility] 4 21:49:47 Subjectiv e pulsatile tinnitus of right ear [id number] 91648 Active 2023 JOSE VELÁZQUEZ MD [address], [place], [address] , [facility] - [facility] 4 21:53:02 Abnormal auditory perceptio n 27166616 Active 2023 JOSE VELÁZQUEZ MD 100 [facility],[address], [place], [address] , [facility] - [facility] 4 09:14:23 Non-aller gic rhinitis 80868075769 1 Active 2023 Oh hernández [place] - [facility] 4 12:14:47 Seasonal allergic rhinitis 335432961 Active 2023 Oh hernández [place] - [facility] 4 12:14:47 Chronic sinusitis 06170609 Active 2023 Oh hernández [place] - [facility] 4 12:16:47 Polyp of nasal cavity 983731726 Active 2023 Oh hernández [place] - [facility] 4 12:17:03 Polypoid sinus degenerat ion 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 Procedures Surgical History Date Name Laterality Status Provider Name and Address Organization Details Recorded Time 04/23/19 25 Allergy Immunotherapy Injections completed SCOTTY RICE 100 [facility],[address] [facility], [place], [address], [place] - [facility] 04/23/2024 09:59:03 04/03/19 25 Allergy Immunotherapy Injections completed SCOTTY GUTHRIE [address] [facility] [address], [place], [address], [place] - [facility] 04/03/2024 10:20:26 03/28/19 25 Allergy Immunotherapy Injections completed JUAQUIN YAÑEZ RN [address] [place] [address], [address], [place] - [facility] 03/28/2024 10:48:14 03/20/19 25 Allergy Immunotherapy Injections completed KEN CARDENAS, RMA [address], [place], [address], [place] [facility] 03/20/2024 09:23:24 03/13/19 25 Allergy Immunotherapy Injections completed KEN CARDENAS, RMA [address], [place], [address], [place] [facility] 03/13/2024 11:58:51 03/08/19 25 Allergy Immunotherapy Injections completed KEN CARDENAS RMA [address] [place] [address], [address], [place] [facility] 03/08/2024 12:13:50 03/01/20 24 Allergy Immunotherapy Injections completed JUAQUIN YAÑEZ RN [address] [facility] [address] [address] [place] [address], [address], [place] [facility] 03/01/2024 09:38:10 02/23/20 24 Allergy Immunotherapy Injections completed JUAQUIN YAÑEZ RN [address] [place] [address], [address], [place] [facility] 02/23/2024 10:01:24 02/14/20 24 Allergy Immunotherapy Injections completed KEN CARDENAS RMA [address], [place], [address], [place] [facility] 02/14/2024 11:05:56 02/07/20 24 Allergy Immunotherapy Injections completed JUAQUIN YAÑEZ RN [address] [place] [address], [address], [place] [facility] 02/07/2024 10:14:23 02/03/20 24 Allergy Immunotherapy Injections completed SCOTTY RICE [address], [place], [address], [place] [facility] 02/03/2024 09:34:55 01/24/20 24 Allergy Immunotherapy Injections completed JUAQUIN YAÑEZ RN [address], [place], [address], [place] [facility] 01/24/2024 10:50:50 01/19/20 24 Allergy Immunotherapy Injections completed SCOTTY RICE [address], [place], [address], [place] [facility] 01/19/2024 13:18:23 01/10/20 24 Allergy Immunotherapy Injections completed SCOTTY RICE [address] [facility] [address] [place] [address], [address], [place] [facility] 01/10/2024 09:42:22 01/03/20 24 Allergy Immunotherapy Injections completed JUAQUIN YAÑEZ RN 100 [facility],[address] [place] [address], [address], [place] [facility] 01/03/2024 11:08:00 12/29/19 24 Allergy Immunotherapy Injections completed SCOTTY RICE [address] [facility] [address] [place] [address], [address], [place] [facility] 12/29/2023 09:38:54 12/21/19 24 Allergy Immunotherapy Injections completed KEN CARDENAS RMKendell [address] [place] [address], [address], [place] [facility] 12/21/2023 11:30:52 12/14/19 24 Allergy Immunotherapy Injections completed JUAQUIN YAÑEZ RN [address] [facility] [address], [place], [address], [place] [facility] 12/14/2023 11:25:12 11/23/19 24 Allergy Immunotherapy Injections completed KEN CARDENAS RMKendell [address], [place], [address], [place] [facility] 11/23/2023 10:31:13 11/17/19 24 Allergy Immunotherapy Injections completed KEN CARDENAS RMA [address], [place], [address], [place] [facility] 11/17/2023 09:42:16 11/09/19 24 Allergy Immunotherapy Injections completed JUAQUIN YAÑEZ RN 100 [facility],[address], [address], [place] [facility] 11/09/2023 11:29:05 11/01/19 24 Allergy Immunotherapy Injections completed JUAQUIN YAÑEZ RN 100 [facility],[address], [address], [place] [facility] 11/01/2023 10:43:38 10/27/19 24 Allergy Immunotherapy Injections completed KEN CARDENAS Kendell [address] [place] [address],[address], [address], [place] [facility] 10/27/2023 11:59:30 10/19/19 24 Allergy Immunotherapy Injections completed JUAQUIN YAÑEZ RN 100 [facility],[address], [address], [place] [facility] 10/19/2023 10:27:27 10/19/19 24 Air & Speech Audio with Tymps (34644, 44837 & 43673) completed DARRIUS OSMAN [place], CCC-Kendell 100 [facility],[address], [address], [place] [facility] 10/19/2023 09:45:15 10/11/19 24 Allergy Immunotherapy Injections completed SCOTTY RICE [address] [place] [address],[address], [address], [place] [facility] 10/11/2023 09:44:13 10/04/19 24 Allergy Immunotherapy Injections completed SCOTTY GUTHRIE 100 [facility],[address], [address], [place] [facility] 10/04/2023 12:12:37 09/27/19 24 Allergy Immunotherapy Injections completed JUAQUIN YAÑEZ RN 100 [facility],[address], [address], [place] [facility] 09/27/2023 10:51:29 09/20/19 24 Allergy Immunotherapy Injections completed JUAQUIN YAÑEZ RN [address], [place], [address], [place] [facility] 09/20/2023 10:20:29 09/13/19 24 Allergy Immunotherapy Injections completed SCOTTY RICE [address], [place], [address], [place] [facility] 09/13/2023 12:56:00 09/05/19 24 Allergy Immunotherapy Injections completed JUAQUIN YAÑEZ RN [address], [place], [address], [place] [facility] 09/05/2023 09:56:55 08/31/19 24 Allergy Immunotherapy Injections completed SCOTTY RICE [address], [place], [address], [place] [facility] 08/31/2023 09:14:03 08/23/19 24 Allergy Immunotherapy Injections completed KEN CARDENAS RMKendell [address], [place], [address], [place] [facility] 08/23/2023 09:35:11 08/17/19 24 Allergy Immunotherapy Injections completed KEN CARDENAS RMA [address], [place], [address], [place] [facility] 08/17/2023 10:13:24 08/10/19 24 Allergy Immunotherapy Injections completed KEN CARDENAS RMA [address], [place], [address], [place] [facility] 08/10/2023 11:14:06 08/03/19 24 Allergy Immunotherapy Injections completed JUAQUIN YAÑEZ RN [address], [place], [address], [place] [facility] 08/03/2023 10:25:33 07/27/19 24 Allergy Immunotherapy Injections completed KEN CARDENAS RMA [address], [place], [address], [place] [facility] 07/27/2023 10:39:49 07/21/19 24 Allergy Immunotherapy Injections completed [facility], [facility] 100 [facility] 100, [place], [address], [facility] - [facility] 07/21/2023 10:29:54 Imaging Results None recorded. Procedure Notes None recorded. Medical Equipment None Reported. Allergies Allergen ID Allergen Name Allergen Category Reaction Reaction Severity Criticality Documentation Date Start Date Code Code System Note Provider Name and Address Organization Details Recorded Time 716891 oxycodone medicatio n Not available Not available Not available 07/19/2023 7804 RxNorm React ion: Dizzi ness, Abdom inal pain, Weakn ess; Not Available [facility] 4 01:20:52 336791 lactose Not available diarrhea Not available Not available 07/19/2023 6211 RxNorm React ion: Diarr hea; Not Available [facility] 4 01:20:53 Medications Name Sig Start [...] mg tablet 09/08 completed Medicati on ID: [id number] B lady Name: dwight sergio Send Method: E-Prescr ibed Sub s [...] Multi-Vit schaefer tablet active Medicati on ID: [id number] B rand Name: Daily Multi-Vi tamin Se [...] (7) tablet 09/08 completed Medicati on ID: [id number] B rand Name: Jenise Fe 03/26 () [...] by Organization Details LastModified Time Mother Asthma [email or web address] Not availab le 04/23/2024 09:21:21 Sister Asthma [email or web address] Not availab le 04/23/2024 09:21:21 Sister Complication of anesthesia [email or web address] Not available 09:21:21 Sister Allergy to food [email or web address] Not available 09:21:21 Medical History Condition Response Allergies/Hayfever Y Heart Problems N Anxiety N Tonsil Infections N Emphysema N Migraines N Thyroid Problems Y Depression N COPD N Developmental Delay N Glaucoma N Nasal or Sinus Problems Y Anemia Y Immune System Disorder N Anesthesia Complications N Heart Attack (OK) N Other Skin Condition N Diabetes N [...] SNOMED-CT Code Diagnosis ICD10 Code Diagnosis Note [id number] JUAQUIN YAÑEZ RN Allergy 100 [facility] 100 [facility] [place] [address] 03/01/2024 09:37:35 03/01/2024 09:38:44 Perennial allergic rhinitis 808504844 J30.89 01496 KEN AGRAWAL, A Allergy 100 [facility],[address] [place] [address] 03/08/2024 12:13:01 03/08/2024 12:14:59 Perennial allergic rhinitis 159272296 J30.89 62444 [facility] NGHIA, A Allergy 100 [facility],[address] [place] [address] 03/13/2024 11:57:35 03/13/2024 11:59:25 Perennial allergic rhinitis 594265575 J30.89 48214 [facility] NGHIA, A Allergy [address] [place] [address],[address] [place] [address] 03/20/2024 09:19:50 03/20/2024 09:23:46 Perennial allergic rhinitis 454761533 J30.89 02765 JUAQUIN YAÑEZ RN Allergy [address] [place] [address], [address] [place] [address] 03/28/2024 10:20:37 03/28/2024 10:48:37 Perennial allergic rhinitis 864944108 J30.89 Health Concerns Section Related Observation LastModified by Organization Detai ls LastModified Time None Recorded Concern Status LastModified by Organization Details LastModified Time None Recorded Payers Encounter Date Sequence Insurance Name Policy Number Policy Roche Covered Member ID Roche Member ID Guarantor Name 03/28/2024 1 [facility] [facility] [place] [id number] Shelia Haya [id number] Shelia Haya OBGyn Episode No OBEpisode recorded.
--- OUTSIDE RECORDS SUMMARY | 2024-04-25 09:29 | XMS_ITS | Encounter Summary ---
Author Organization [email or web address] Address [address] [place] [address] Care Team Providers Care Automotive Shop Foreman Name Role Phone Bonnie Ahn MD Primary Care Provider [phone] Reason for Referral * Consultation (Routine) - Pending Review Specialty Diagnoses / Procedures Referred By Mehrdad leung Referred To Contact Plastic Surgery Diagnoses Symptomatic abdominal panniculus Radha West MD [address] [address] Phone: tel: fax: Referral ID Status Reason Start Date Expiration Date Visits Requested Visits Authorized [id number] Pending Review Specialty Services Required 04/03/2024 04/03/2025 1 1 Reason for Visit * Reason Comments Follow-up 3 month follow up Encounter Details Date Type Department Care Team (Late st Contact Info) Description 04/03/2024 9:00 AM EST Office Visit Bariatric Surgery - [place] [address] [address] Radha West MD [address] [address] Obesity, Class I, BMI 30-34.9 (Primary Dx); [...] Surgical History: Procedure Laterality Date SECTION PROCEDURE: [place] DELIVERY ONLY CHOLECYSTECTOMY 02/23/2017 PROCEDURE: HISTORICAL CHOLECYSTECTOMY [...] AM EDT Office Visit Bariatric Surgery - [place] 175 [facility] [address] [place] [address] Radha West MD [address] [facility] [address] [place] [address] Scheduled Referrals Name Type Priority Associated Diagnoses [...] documented as of this encounter Care Teams Automotive Shop Foreman Relationship Specialty Start Date End Date Bonnie Ahn MD [address] [place] [address] , [address] [facility] D[facility]A: [facility] ESTEFANÍA Larson PCP - General Internal Medicine 03/29/19 documented as of this encounter
[2024-04-25 10:23] LABS: Alanine Aminotransferase 30 U/L (0-31); Albumin Level 4.1 g/dL (3.5-5.0); Alkaline Phosphatase 62 U/L (39-117); Anion Gap 10 (12-20); Aspartate Amino Transferase 21 U/L (5-31); Bilirubin Total 0.4 mg/dL (0.0-1.0); Blood Urea Nitrogen 19 mg/dL (9-16); Calcium 9.6 mg/dL (8.4-10.2); Carbon Dioxide 24 mmol/L (22-29); Chloride 113 mmol/L (96-108); Cholesterol 191 mg/dL (<200); Estimated Glomerular Filt Rate > 60; Glucose Fasting 82 mg/dL (60-99); HDL Cholesterol 52 mg/dL (>40); LDL Cholesterol Calculated 109 mg/dL (<100); Potassium 4.7 mmol/L (3.3-5.1); Sodium 142 mmol/L (135-145); Total Protein 7.4 g/dL (6.5-8.0); Triglycerides 150 mg/dL (<150)
[2024-04-25 10:44] LABS: Thyroid Stimulating Hormone 1.87 uIU/mL (0.32-4.0)
== END 2024-04-25 09:17 | disposition home or self-care (01) ==
LOC: HO.LAB 09:16
PROVIDERS: PCP Internal Medicine; Visit Provider Internal Medicine
DX: Z00.00 Encounter for general adult medical examination without abnormal findings (principal); M25.521 Pain in right elbow; E03.9 Hypothyroidism, unspecified
CPT/HCPCS: 36415; 73070; 80053; 80061; 84443

== ENCOUNTER → 2024-04-25 09:31 | Outpatient (BNV) | payer BC, SELFPAY | PROVIDERS: PCP Internal Medicine; Visit Provider Radiology Diagnostic Radiology | DX: M25.521 Pain in right elbow (principal) | CPT/HCPCS: 73080 ==

== ENCOUNTER 2024-04-30 07:46 | Outpatient (REF) | payer BC, SELFPAY ==
--- NOTE | ~2024-04-30 | FL_ITS ---
EXAMINATION: XR FLUOROSCOPY UPPER GI WITH AIR CLINICAL INFORMATION: Dysphagia. History of sleeve gastrectomy. History of achalasia. COMPARISON: None TECHNIQUE: Fluoroscopic air contrast upper GI examination was performed utilizing standard techniques with thin and thick barium and effervescent granules. Numerous spot images were obtained. FINDINGS: Lateral cine images of the oropharynx and hypopharynx demonstrate normal swallow mechanism with normal epiglottic inversion and soft palate elevation. No tracheal penetration, glottic or subglottic aspiration identified. No nasopharyngeal reflux present. Hypopharyngeal structures appear normal without evidence of mass or diverticulum. There was no significant cricopharyngeal achalasia. Dual and single contrast images of the esophagus demonstrate a very dilated esophagus. No masses or ulcerations are seen is mild to moderate narrowing of the GE junction. There is to and fro motion of the barium column with nonpropulsive tertiary contractions noted throughout the esophagus.. No evidence of hiatus hernia identified. No significant gastroesophageal reflux was seen during the course of the examination and on reflux views. Dual contrast and single contrast images of the stomach demonstrated post surgical changes consistent with prior history of sleeve gastrectomy. Evaluation of the gastric mucosa is limited due to underdistention of the stomach from poor tolerance of effervescent granules. No obvious masses are seen. Contrast freely passed into the gastric antrum and duodenal bulb without delay. Single and air-contrast images of the duodenal bulb demonstrate no abnormality. The duodenal sweep has a normal appearance, course, and mucosal fold appearance. The imaged proximal jejunum has a normal fold pattern and caliber. FLUOROSCOPY TIME: 4 minutes 28 seconds Number of Spot Images: 7 Number of Cine: 14 DOSE AREA PRODUCT: 2381 uGy-m2 (microgray-meter squared) FL/FL barium swallow IMPRESSION: 1. Patulous esophagus with severely disorganized peristalsis consistent with severe esophageal dysmotility. 2. Mild to moderate narrowing of the GE junction, which suggests achalasia. A benign stricture cannot be ruled out. This does not appear to be obstructing at this time. 3. Post surgical changes consistent with prior history of sleeve gastrectomy. Evaluation of the gastric mucosa is limited due to underdistention of the stomach from poor tolerance of the effervescent granules. This procedure was performed by Cam Davis PA-C, and supervised by Dr. Green Electronically signed by: Adan Green MD 04/30/2024 05:04 PM DANETTE BERNARDO
--- OUTSIDE RECORDS SUMMARY | 2024-04-30 07:58 | XMS_ITS | Continuity of Care Document ---
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 Patient InstructionsNo instructions recorded. Reason for Referral None Reported. Problems Name Problem SNOMED Code Status Onset Date Resolution Date Notes Provider Name and Address Organization Details Recorded Time Achalasia of esophagus 70495827 Active 2022 Achalasia NOS; Note: Date Diagnosed : 06/23/2022 2:49 PM (K22.0) Not Available [facility] 4 03:10:05 Respirato ry finding 975087783 Active 2022 Feeling of foreign body in throat; Note: Date Diagnosed : 06/23/2022 2:49 PM (R09.89) Not Available [facility] 4 03:10:05 Cardiovas cular finding 897924036 Active 2022 Feeling of foreign body in throat; Note: Date Diagnosed : 06/23/2022 2:49 PM (R09.89) Not Available [facility] 4 03:10:05 Posterior rhinorrhe a 50158369 Active 2022 Postnasal drip; Note: Date Diagnosed : 06/23/2022 2:49 PM (R09.82) Not Available [facility] 4 03:10:04 Allergic rhinitis 33680077 Active 2023 Allergic rhinitis: Due to other [...] Note: Date Diagnosed : 10/16/19 Not Available [facility] 4 01:25:32 Deviated nasal septum 002484561 Active 2022 Deviated nasal septum; Note: Date Diagnosed : 06/23/2022 2:49 PM (J34.2) Not Available [facility] 4 03:10:04 Perennial allergic rhinitis 385951016 Active [address], [address] , [facility] 4 10:29:26 Snoring 54849567 Active 2023 Snoring; Note: Date Diagnosed : 04/04/2023 8:51 AM (R06.83) Not Available [facility] 4 03:10:03 Obesity 825682370 Active 2023 Other obesity; Note: Date Diagnosed : 04/04/2023 8:51 AM (E66.8) Not Available [facility] 4 03:10:04 Tinnitus of vascular origin 519378781 Active 2023 Pulsatile tinnitus, right ear; Note: Date Diagnosed : 04/04/2023 8:49 AM (H93.A1) Not Available [facility] 4 03:10:04 Sensorine ural hearing loss 48074440 Active 2023 Sensorine ural hearing loss, unilatera l, right ear, with unrestric jaswant hearing on the contralat eral side; Note: Date Diagnosed : 04/04/2023 9:26 AM (H90.41) Not Available [facility] 4 03:10:05 Abnormal auditory perceptio n 15627502 Active 2023 JOSE VELÁZQUEZ MD [address], [place], [address] , [place] [facility] 4 21:49:47 Subjectiv e pulsatile tinnitus of right ear 51968287402 18148 Active 2023 JOSE VELÁZQUEZ MD [address], [place], [address] , [place] [facility] 4 21:53:02 Abnormal auditory perceptio n 03394441 Active 2023 JOSE VELÁZQUEZ MD [address], [place], [address] , [place] [facility] 4 09:14:23 Non-aller gic rhinitis 92189582371 1 Active 2023 Oh hernández [place] - [facility] 4 12:14:47 Seasonal allergic rhinitis 540835096 Active 2023 Oh hernández [place] - [facility] 4 12:14:47 Chronic sinusitis 58304686 Active 2023 hO hernández [place] - [facility] 4 12:16:47 Polyp of nasal cavity 191093271 Active 2023 Oh hernández [place] - [facility] 4 12:17:03 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 Procedures Surgical History Date Name Laterality Status Provider Name and Address Organization Details Recorded Time 04/23/19 25 Allergy Immunotherapy Injections completed SCOTTY RICE [address], [place], [address], [place] [facility] 04/23/2024 09:59:03 04/03/19 25 Allergy Immunotherapy Injections completed KEN RASTAZEC, RMA [address], [address], [place] - [facility] 04/03/2024 10:20:26 03/28/19 25 Allergy Immunotherapy Injections completed JUAQUIN YAÑEZ RN [address], [address], [place] [facility] 03/28/2024 10:48:14 03/20/19 25 Allergy Immunotherapy Injections completed KEN RASTAZEC, RMA [address], [place], [address], [place] [facility] 03/20/2024 09:23:24 03/13/19 25 Allergy Immunotherapy Injections completed KEN AGRAWALC, RMA [address], [place], [address], [place] [facility] 03/13/2024 11:58:51 03/08/19 25 Allergy Immunotherapy Injections completed KEN CARDENAS, RMA [address] [facility], [place], [address], [place] [facility] 03/08/2024 12:13:50 03/01/20 24 Allergy Immunotherapy Injections completed JUAQUIN YAÑEZ RN [address] [place] [address], [address], [place] [facility] 03/01/2024 09:38:10 02/23/20 24 Allergy Immunotherapy Injections completed JUAQUIN YAÑEZ RN [address], [address], [place] [facility] 02/23/2024 10:01:24 02/14/20 24 Allergy Immunotherapy Injections completed KEN CARDENAS, RMA [address], [address], [place] [facility] 02/14/2024 11:05:56 02/07/20 24 Allergy Immunotherapy Injections completed JUAQUIN YAÑEZ RN [address], [address], [place] [facility] 02/07/2024 10:14:23 02/03/20 24 Allergy Immunotherapy Injections completed SCOTTY RICE [address], [address], [place] [facility] 02/03/2024 09:34:55 01/24/20 24 Allergy Immunotherapy Injections completed JUAQUIN YAÑEZ RN [address], [address], [place] [facility] 01/24/2024 10:50:50 01/19/20 24 Allergy Immunotherapy Injections completed SCOTTY RICE [address], [address], [place] [facility] 01/19/2024 13:18:23 01/10/20 24 Allergy Immunotherapy Injections completed SCOTTY IRCE [address] [place] [address], [address], [place] [facility] 01/10/2024 09:42:22 01/03/20 24 Allergy Immunotherapy Injections completed JUAQUIN YAÑEZ RN [address] [place] [address], [address], [place] [facility] 01/03/2024 11:08:00 12/29/19 24 Allergy Immunotherapy Injections completed SCOTTY RICE [address] [place] [address], [address], [place] [facility] 12/29/2023 09:38:54 12/21/19 24 Allergy Immunotherapy Injections completed SCOTTY GUTHRIE [address], [address], [place] [facility] 12/21/2023 11:30:52 12/14/19 24 Allergy Immunotherapy Injections completed JUAQUIN YAÑEZ RN [address], [address], [place] [facility] 12/14/2023 11:25:12 11/23/19 24 Allergy Immunotherapy Injections completed SCOTTY GUTHRIE [address], [address], [place] [facility] 11/23/2023 10:31:13 11/17/19 24 Allergy Immunotherapy Injections completed SCOTTY GUTHRIE [address] [facility] [place],[address] [place] [address], [address], [place] [facility] 11/17/2023 09:42:16 11/09/19 24 Allergy Immunotherapy Injections completed JUAQUIN YAÑEZ RN [address] [facility] [place],[address] [place] [address], [address], [place] [facility] 11/09/2023 11:29:05 11/01/19 24 Allergy Immunotherapy Injections completed JUAQUIN YAÑEZ RN 100 [facility],[address], [address], [place] [facility] 11/01/2023 10:43:38 10/27/19 24 Allergy Immunotherapy Injections completed KEN CARDENAS [facility] [address] [facility],[address], [address], [place] [facility] 10/27/2023 11:59:30 10/19/19 24 Allergy Immunotherapy Injections completed JUAQUIN YAÑEZ RN 100 [facility],[address], [address], [place] [facility] 10/19/2023 10:27:27 10/19/19 24 Air & Speech Audio with Tymps (36502, 37370 & 20963) completed DARRIUS OSMAN MA, CCC-A [address] [facility],[address], [address], [place] [facility] 10/19/2023 09:45:15 10/11/19 24 Allergy Immunotherapy Injections completed SCOTTY RICE [address] [facility],[address] [place] [address], [address], [place] [facility] 10/11/2023 09:44:13 10/04/19 24 Allergy Immunotherapy Injections completed SCOTTY GUTHRIE [address] [place] [address], [address], [place] [facility] 10/04/2023 12:12:37 09/27/19 24 Allergy Immunotherapy Injections completed JUAQUIN YAÑEZ RN [address], [place], [address], [place] [facility] 09/27/2023 10:51:29 09/20/19 24 Allergy Immunotherapy Injections completed JUAQUIN YAÑEZ RN [address], [place], [address], [place] [facility] 09/20/2023 10:20:29 09/13/19 24 Allergy Immunotherapy Injections completed SCOTTY RICE [address], [place], [address], [place] [facility] 09/13/2023 12:56:00 09/05/19 24 Allergy Immunotherapy Injections completed JUAQUIN YAÑEZ RN [address], [address], [place] [facility] 09/05/2023 09:56:55 08/31/19 24 Allergy Immunotherapy Injections completed SCOTTY RICE [address] [place] [address], [address], [place] [facility] 08/31/2023 09:14:03 08/23/19 24 Allergy Immunotherapy Injections completed SCOTTY GUTHRIE [address], [address], [place] [facility] 08/23/2023 09:35:11 08/17/19 24 Allergy Immunotherapy Injections completed SCOTTY GUTHRIE [address], [address], [place] [facility] 08/17/2023 10:13:24 08/10/19 24 Allergy Immunotherapy Injections completed SCOTTY GUTHRIE [address], [address], [place] [facility] 08/10/2023 11:14:06 08/03/19 24 Allergy Immunotherapy Injections completed JUAQUIN YAÑEZ RN [address], [place], [address], [place] [facility] 08/03/2023 10:25:33 07/27/19 24 Allergy Immunotherapy Injections completed [facility], RMA [address] [facility] [address], [place], [address], [facility] 07/27/2023 10:39:49 07/21/19 24 Allergy Immunotherapy Injections completed [facility], RMA [address] [facility] [place],[address], [place], [address], [facility] 07/21/2023 10:29:54 Imaging Results None recorded. Procedure Notes None recorded. Medical Equipment None Reported. Allergies Allergen ID Allergen Name Allergen Category Reaction Reaction Severity Criticality Documentation Date Start Date Code Code System Note Provider Name and Address Organization Details Recorded Time 515350 oxycodone medicatio n Not available Not available Not available 07/19/2023 7804 RxNorm React ion: Dizzi ness, Abdom inal pain, Weakn ess; Not Available [facility] 4 01:20:52 865558 lactose Not available diarrhea Not available Not available 07/19/2023 6211 RxNorm React ion: Diarr hea; Not Available [facility] 4 01:20:53 Medications Name Sig [...] mg tablet 09/08 completed Medicati on ID: [id number] B rand Name: dwight hill Send Method: [...] Multi-Vit schaefer tablet active Medicati on ID: [id number] B rand Name: Daily Multi-Vi tamin Se [...] (7) tablet 09/08 completed Medicati on ID: [id number] B rand Name: Jenise Wright 03/26 () [place] Method: E-Prescr ibed Sub s Allowed: subs OK Medic ationGen ericName : Jenise Wright 03/26 () Not Available Not Available Not Available Vitals Date Recorded Body height Body weight Provider Name and Address Organization Details Last Updated DateTime 04/23/2024 162.56 cm 66345.47 g Tod Quintanilla [place] - [facility] 04/23/2024 09:21:16 Social History None recorded. Functional Status None recorded. Mental Status None recorded. Family History Relationship Description Onset Age of this Age Resolved Age Notes LastModified by Organization Details LastModified Time Mother Asthma [email or web address] Not availab le 04/23/2024 09:21:21 Sister Asthma [email or web address] Not availab le 04/23/2024 09:21:21 Sister Complication of anesthesia [email or web address] Not available 09:21:21 Sister Allergy to food [email or web address] Not available 09:21:21 Medical History Condition Response Allergies/Hayfever Y Heart Problems N Anxiety N Tonsil Infections N Emphysema N Migraines N Thyroid Problems Y Glaucoma N Depression N COPD N Developmental Delay N Nasal or Sinus Problems Y Anemia Y Immune System Disorder N Anesthesia Complications N Heart Attack (DE) N Other Skin Condition N Diabetes N [...] SNOMED-CT Code Diagnosis ICD10 Code Diagnosis Note [id number] JUAQUIN YAÑEZ RN Allergy [address] [facility], [address] [place] [address] 03/28/2024 10:20:37 03/28/2024 10:48:37 Perennial allergic rhinitis [id number] J30.89 [id number] KEN CARDENAS, [facility] Allergy [address] [facility], [address] [place] [address] 04/03/2024 10:19:02 04/03/2024 10:20:47 Perennial allergic rhinitis 856927684 J30.89 [id number] JOSE VELÁZQUEZ MD [facility] 100 [place] [address] 04/23/2024 09:16:11 04/23/2024 09:38:20 Allergic rhinitis 14554720 J30.89 Doing well with immunother apy. New Epipen prescribed [id number] VALORIE LUCIO, [facility] Allergy 100 [facility] 100 [place] [address] 04/23/2024 09:58:15 04/23/2024 09:59:52 Perennial allergic rhinitis 653720261 J30.89 Health Concerns Section Related Observation LastModified by Organization Detai ls LastModified Time None Recorded Concern Status LastModified by Organization Details LastModified Time None Recorded Payers Encounter Date Sequence Insurance Name Policy Number Policy Roche Covered Member ID Roche Member ID Guarantor Name 04/23/2024 1 [place] [facility] [id number] Shelia Fitzgerald [id number] Shelia Fitzgerald Notes Date Note Type [...] showed gastritis --omeprazole now JOSE DIXON MD [address] [place] [address], [address], [place] [facility] 04/23/2024 09:37:17 OBGyn Episode No OBEpisode recorded.
--- OUTSIDE RECORDS SUMMARY | 2024-04-30 07:58 | XMS_ITS | Continuity of Care Document ---
Author Organization [place] - [facility], Allergy Address [address] [address] Care Team Providers Care Publisher Assistant Name Role Phone TOD JENKINS Primary Care Provider [phone] Assessment Encounter Date Assessment Date Assessment LastModified [...] Organization Details Last Modified Time Details Appointments [facility]- Allergy f-up 6mon 2024 10:30A M JOSE [...] Organization Details Recorded Time Achalasia of esophagus 99974395 Active 2022 Achalasia NOS; Note: Date Diagnosed : 06/23/2022 2:49 PM (K22.0) Not Available [facility] 4 03:10:05 Respirato ry finding 349997559 Active 2022 Feeling of foreign body in throat; Note: Date Diagnosed : 06/23/2022 2:49 PM (R09.89) Not Available [facility] 4 03:10:05 Cardiovas cular finding 663115379 Active 2022 Feeling of foreign body in throat; Note: Date Diagnosed : 06/23/2022 2:49 PM (R09.89) Not Available [facility] 4 03:10:05 Posterior rhinorrhe a 63470054 Active 2022 Postnasal drip; Note: Date Diagnosed : 06/23/2022 2:49 PM (R09.82) Not Available [facility] hospital 4 03:10:04 Allergic rhinitis 54500872 Active 2023 Allergic rhinitis: Due to other [...] [facility] 4 01:25:32 Deviated nasal septum 578887729 Active 2022 Deviated nasal septum; Note: Date Diagnosed : 06/23/2022 2:49 PM (J34.2) Not Available [facility] 4 03:10:04 Perennial allergic rhinitis 140120736 Active 2023 [facility] 100 [facility] [address], [place], [address] , [facility] 4 10:29:26 Snoring 24643259 Active 2023 Snoring; Note: Date Diagnosed : 04/04/2023 8:51 AM (R06.83) Not Available [facility] hospital 4 03:10:03 Obesity 330464148 Active 2023 Other obesity; Note: Date Diagnosed : 04/04/2023 8:51 AM (E66.8) Not Available [facility] hospital 4 03:10:04 Tinnitus of vascular origin 248602178 Active 2023 Pulsatile tinnitus, right ear; Note: Date Diagnosed : 04/04/2023 8:49 AM (H93.A1) Not Available [facility] 4 03:10:04 Sensorine ural hearing loss 00269415 Active 2023 Sensorine ural hearing loss, unilatera l, right ear, with unrestric jaswant hearing on the contralat eral side; Note: Date Diagnosed : 04/04/2023 9:26 AM (H90.41) Not Available [facility] 4 03:10:05 Abnormal auditory perceptio n 35457695 Active 2023 JOSE VELÁZQUEZ MD [address], [place], [address] , [facility] - [facility] 4 21:49:47 Subjectiv e pulsatile tinnitus of right ear [id number] 33872 Active 2023 JOSE VELÁZQUEZ MD [address] [facility] [address], [place], [address] , [facility] - [facility] 4 21:53:02 Abnormal auditory perceptio n 17760008 Active 2023 JOSE VELÁZQUEZ MD [address] [facility] [facility] [place], [place], [address] , [facility] - [facility] 4 09:14:23 Non-aller gic rhinitis 92212602697 1 Active 2023 Oh hernández [place] - [facility] 4 12:14:47 Seasonal allergic rhinitis 858807376 Active 2023 Oh hernández [place] - [facility] 4 12:14:47 Chronic sinusitis 92522156 Active 2023 Oh hernández [place] - [facility] 4 12:16:47 Polyp of nasal cavity 209121288 Active 2023 Oh hernández [place] - [facility] 4 12:17:03 Polypoid sinus degenerat ion 97046765 Active 2023 Oh hernández [place] - [facility] 4 12:17:03 Problem Notes None recorded. Procedures Surgical History Date Name Laterality Status Provider Name and Address Organization Details Recorded Time 04/23/19 25 Allergy Immunotherapy Injections completed SCOTTY RICE [address] [facility] [facility] [place],[address] [facility], [place], [address], [facility] - [facility] 04/23/2024 09:59:03 04/03/19 25 Allergy Immunotherapy Injections completed SCOTTY GUTHRIE [address] [facility] [place], [place], [address], [place] [facility] 04/03/2024 10:20:26 03/28/19 25 Allergy Immunotherapy Injections completed JUAQUIN YAÑEZ RN [address], [address], [place] [facility] 03/28/2024 10:48:14 03/20/19 25 Allergy Immunotherapy Injections completed KEN CARDENAS, RMA [address], [place], [address], [place] [facility] 03/20/2024 09:23:24 03/13/19 25 Allergy Immunotherapy Injections completed KEN CARDENAS, RMA [address] [facility] [address], [address], [place] [facility] 03/13/2024 11:58:51 03/08/19 25 Allergy Immunotherapy Injections completed KEN CARDENAS, RMA [address] [place] [address], [address], [place] [facility] 03/08/2024 12:13:50 03/01/20 24 Allergy Immunotherapy Injections completed JUAQUIN YAÑEZ RN [address] [facility] [address] [place] [address], [address], [place] [facility] 03/01/2024 09:38:10 02/23/20 24 Allergy Immunotherapy Injections completed JUAQUIN YAÑEZ RN [address], [address], [place] [facility] 02/23/2024 10:01:24 02/14/20 24 Allergy Immunotherapy Injections completed KEN CARDENAS RMA [address], [address], [place] [facility] 02/14/2024 11:05:56 02/07/20 24 Allergy Immunotherapy Injections completed JUAQUIN YAÑEZ RN [address] [facility] [address], [place], [address], [place] [facility] 02/07/2024 10:14:23 02/03/20 24 Allergy Immunotherapy Injections completed SCOTTY RICE [address], [place], [address], [place] [facility] 02/03/2024 09:34:55 01/24/20 24 Allergy Immunotherapy Injections completed JUAQUIN YAÑEZ RN [address] [facility] [address], [address], [place] [facility] 01/24/2024 10:50:50 01/19/20 24 Allergy Immunotherapy Injections completed SCOTTY RICE [address], [address], [place] [facility] 01/19/2024 13:18:23 01/10/20 24 Allergy Immunotherapy Injections completed SCOTTY RICE [address] [facility] [address] [place] [address], [address], [place] [facility] 01/10/2024 09:42:22 01/03/20 24 Allergy Immunotherapy Injections completed JUAQUIN YAÑEZ RN [address] [address] [facility] [facility] [place],[address] [place] [address], [address], [place] [facility] 01/03/2024 11:08:00 12/29/19 24 Allergy Immunotherapy Injections completed SCOTTY RICE [address] [facility] [address] [place] [address], [address], [place] [facility] 12/29/2023 09:38:54 12/21/19 24 Allergy Immunotherapy Injections completed KEN CARDENAS RMIsabela [address] [place] [address], [address], [place] [facility] 12/21/2023 11:30:52 12/14/19 24 Allergy Immunotherapy Injections completed JUAQUIN YAÑEZ RN [address] [facility] [address], [place], [address], [place] [facility] 12/14/2023 11:25:12 11/23/19 24 Allergy Immunotherapy Injections completed KEN CARDENAS RMIsabela [address], [place], [address], [place] [facility] 11/23/2023 10:31:13 11/17/19 24 Allergy Immunotherapy Injections completed KEN CARDENAS RMA [address], [place], [address], [facility] - [facility] 11/17/2023 09:42:16 11/09/19 24 Allergy Immunotherapy Injections completed JUAQUIN YAÑEZ RN 100 [facility],[address], [address], [facility] - [facility] 11/09/2023 11:29:05 11/01/19 24 Allergy Immunotherapy Injections completed JUAQUIN YAÑEZ RN 100 [facility],[address], [address], [facility] - [facility] 11/01/2023 10:43:38 10/27/19 24 Allergy Immunotherapy Injections completed SCOTTY GUTHRIE 100 [facility],[address], [address], [facility] - [facility] 10/27/2023 11:59:30 10/19/19 24 Allergy Immunotherapy Injections completed JUAQUIN YAÑEZ RN 100 [facility],[address], [address], [facility] - [facility] 10/19/2023 10:27:27 10/19/19 24 Air & Speech Audio with Tymps (30801, 26786 & 59492) completed DARRIUS OSMAN [place], CCC-Isabela 100 [facility],[address], [address], [facility] - [facility] 10/19/2023 09:45:15 10/11/19 24 Allergy Immunotherapy Injections completed SCOTTY RICE 100 [facility],[address], [address], [facility] - [facility] 10/11/2023 09:44:13 10/04/19 24 Allergy Immunotherapy Injections completed SCOTTY GUTHRIE 100 [facility],[address], [address], [facility] - [facility] 10/04/2023 12:12:37 09/27/19 24 Allergy Immunotherapy Injections completed JUAQUIN YAÑEZ RN 100 [facility],[address], [address], [facility] - [facility] 09/27/2023 10:51:29 07/16/20 24 Allergy Immunotherapy Injections completed JUAQUIN YAÑEZ RN [address], [place], [address], [place] [facility] 09/20/2023 10:20:29 09/13/19 24 Allergy Immunotherapy Injections completed SCOTTY RICE [address], [address], [place] [facility] 09/13/2023 12:56:00 09/05/19 24 Allergy Immunotherapy Injections completed JUAQUIN YAÑEZ RN [address], [place], [address], [place] [facility] 09/05/2023 09:56:55 08/31/19 24 Allergy Immunotherapy Injections completed SCOTTY RICE [address], [address], [place] [facility] 08/31/2023 09:14:03 08/23/19 24 Allergy Immunotherapy Injections completed KEN CARDENAS RMA [address], [place], [address], [place] [facility] 08/23/2023 09:35:11 08/17/19 24 Allergy Immunotherapy Injections completed KEN CARDENAS RMA [address], [address], [place] [facility] 08/17/2023 10:13:24 08/10/19 24 Allergy Immunotherapy Injections completed KEN CARDNEAS RMA [address], [place], [address], [place] [facility] 08/10/2023 11:14:06 08/03/19 24 Allergy Immunotherapy Injections completed JUAQUIN YAÑEZ RN [address], [place], [address], [place] [facility] 08/03/2023 10:25:33 07/27/19 24 Allergy Immunotherapy Injections completed KEN CARDENAS RMA [address], [address], [place] [facility] 07/27/2023 10:39:49 07/21/19 24 Allergy Immunotherapy Injections completed [facility], [facility] 100 [facility] [address], [place], [address], [facility] - [facility] 07/21/2023 10:29:54 Imaging Results None recorded. Procedure Notes None recorded. Medical Equipment None Reported. Allergies Allergen ID Allergen Name Allergen Category Reaction Reaction Severity Criticality Documentation Date Start Date Code Code System Note Provider Name and Address Organization Details Recorded Time 055185 oxycodone medicatio n Not available Not available Not available 07/19/2023 7804 RxNorm React ion: Dizzi ness, Abdom inal pain, Weakn ess; Not Available Critical [facility] hospital 4 01:20:52 065902 lactose Not available diarrhea Not available Not [...] mg tablet 09/08 completed Medicati on ID: [id number] B lady Name: johnisabela hill Send Method: [...] Multi-Vit schaefer tablet active Medicati on ID: [id number] B rand Name: Daily Multi-Vi tamin Se [...] (7) tablet 09/08 completed Medicati on ID: [id number] B rand Name: Jenise Fe 03/26 () [...] by Organization Details LastModified Time Mother Asthma [email or web address] Not availab le 04/23/2024 09:21:21 Sister Asthma [id number] Not availab le 04/23/2024 09:21:21 Sister Complication of anesthesia [email or web address] Not available 09:21:21 Sister Allergy to food [...] SNOMED-CT Code Diagnosis ICD10 Code Diagnosis Note [id number] KEN CARDENAS, RMA Allergy 100 [facility],[address] [place] [address] 03/08/2024 12:13:01 03/08/2024 12:14:59 Perennial allergic rhinitis 670202379 J30.89 [id number] KEN CARDENAS, RMA Allergy [address] [place] [address],[facility] [address] [place] [address] 03/13/2024 11:57:35 03/13/2024 11:59:25 Perennial allergic rhinitis 689080893 J30.89 [id number] KEN CARDENAS, A Allergy [address] [place] [address],[facility] [address] [place] [address] 03/20/2024 09:19:50 03/20/2024 09:23:46 Perennial allergic rhinitis 720956020 J30.89 53553 JUAQUIN YAÑEZ RN Allergy [address] [place] [address],[facility] 100 [place] [address] 03/28/2024 10:20:37 03/28/2024 10:48:37 Perennial allergic rhinitis 819648104 J30.89 [id number] KEN AGRAWAL A Allergy [address] [place] [address],[facility] [address] [place] [address] 04/03/2024 10:19:02 04/03/2024 10:20:47 Perennial allergic rhinitis 655394034 J30.89 Health Concerns Section Related Observation LastModified by Organization Detai ls LastModified Time None Recorded Concern Status LastModified by Organization Details LastModified Time None Recorded Payers Encounter Date Sequence Insurance Name Policy Number Policy Roche Covered Member ID Roche Member ID Guarantor Name 04/03/2024 1 [facility] [id number] Shelia Haya [id number] Shelia Haya OBGyn Episode No OBEpisode recorded.
--- OUTSIDE RECORDS SUMMARY | 2024-04-30 07:58 | XMS_ITS | Clinical Summary ---
Author Organization 175 [facility] Address 175 [place] [address] Phone Care Team Providers Care Chicken Buyer Name Role Phone Bonnie Ahn MD Primary Care Provider [phone] Allergies Active Allergy Reactions Criticality Noted Date [...] AM EST Office Visit Bariatric Surgery - [address] [place] [address] Radha West MD Obesity, Class I, [...] HISTORY PROCEDURE: ARTHROSCOPY PROCEDURE NEC SECTION PROCEDURE: [place] DELIVERY ONLY OTHER SURGICAL HISTORY PROCEDURE: HISTORY [...] AM EDT Office Visit Bariatric Surgery - [place] [address] [facility] [address] [place] [phone] Radha West MD 175 [facility] [address] [place] [address] Health Maintenance Due Date Last Done Comments [...] to complete this topic Insurance Care Teams Chicken Buyer Relationship Specialty Start Date End Date Jimy, Bonnie R, MD 2 [facility] , [address] [facility] D/B/A: [facility] ESTEFANÍA Larson PCP - General Internal Medicine 03/29/19
--- OUTSIDE RECORDS SUMMARY | 2024-04-30 07:58 | XMS_ITS | Encounter Summary ---
Author Organization [facility] Address [address] [place] [address] Care Team Providers Care Home Health Aide Caregiver Name Role Phone Bonnie Ahn MD Primary Care Provider [phone] Reason for Referral * Consultation (Routine) - Pending Review Specialty Diagnoses / Procedures Referred By Mehrdad leung Referred To Contact Plastic Surgery Diagnoses Symptomatic abdominal panniculus Radha Wset MD [address] [place] [address] Phone: tel: fax: Jenna Kwok MD [address] [place] [address] Phone: tel: fax: Referral ID Status Reason Start Date Expiration Date Visits Requested Visits Authorized [id number] Pending Review Specialty Services Required 04/03/2024 04/03/2025 1 1 Reason for Visit * Reason Comments Follow-up 3 month follow up Encounter Details Date Type Department Care Team (Late st Contact Info) Description 04/03/2024 9:00 AM EST Office Visit Bariatric Surgery - [address] [address] Radha West MD [address] [address] Obesity, Class I, BMI 30-34.9 (Primary Dx); [...] using topiramate and bupropion. Had sleeve in 2017. Has lost over 90 lbs since sleeve. [...] Surgical History: Procedure Laterality Date SECTION PROCEDURE: [place] DELIVERY ONLY CHOLECYSTECTOMY 02/23/2017 PROCEDURE: HISTORICAL CHOLECYSTECTOMY [...] AM EDT Office Visit Bariatric Surgery - [address] [address] Radha West MD 175 [facility] [address] [place] [address] Scheduled Referrals Name Type Priority Associated Diagnoses [...] documented as of this encounter Care Teams Home Health Aide Caregiver Relationship Specialty Start Date End Date Bonnie Ahn MD [address] [place] [address] , [address] [facility] D/B/A: [facility] [place] PCP - General Internal Medicine 03/29/19 documented as of this encounter
--- OUTSIDE RECORDS SUMMARY | 2024-04-30 07:58 | XMS_ITS | Data Portability ---
Author Organization [place] - [facility], Allergy Address [address] [address] Care Team Providers Care Business Office Technology Instructor Name Role Phone TOD JENKINS Primary Care [...] Aware of Vial Test Notes:? ? ? [email or web address] Not available 03/20/2024 09:23:29 03/28/2024 03/28/2024 Visit [...] ? ? [email or web address] Not available 03/28/2024 10:48:22 04/03/2024 04/03/2024 [...] Aware of Vial Test Notes:? ? ? [email or web address] Not available 04/23/2024 09:59:27 Plan of Treatment [...] mL injection , auto-inje ctor 2024 025 [facility], [address] [place] [id number], [address], 04/23/2024 09:36:58 Patient TargetsNo targets recorded. Patient InstructionsNo instructions recorded. Reason for Referral None Reported. Problems Name Problem SNOMED Code Status Onset Date Resolution Date Notes Provider Name and Address Organization Details Recorded Time Achalasia of esophagus 15710202 Active 2022 Achalasia NOS; Note: Date Diagnosed : 06/23/2022 2:49 PM (K22.0) Not Available [facility] 4 03:10:05 Respirato ry finding 037562967 Active 2022 Feeling of foreign body in throat; Note: Date Diagnosed : 06/23/2022 2:49 PM (R09.89) Not Available [facility] 4 03:10:05 Cardiovas cular finding 735969321 Active 2022 Feeling of foreign body in throat; Note: Date Diagnosed : 06/23/2022 2:49 PM (R09.89) Not Available [facility] 4 03:10:05 Posterior rhinorrhe a 43241193 Active 2022 Postnasal drip; Note: Date Diagnosed : 06/23/2022 2:49 PM (R09.82) Not Available [facility] 4 03:10:04 Allergic rhinitis 58588334 Active 2023 Allergic rhinitis: Due to other [...] Note: Date Diagnosed : 10/16/19 Not Available [facility] 4 01:25:32 Deviated nasal septum 713080900 Active 2022 Deviated nasal septum; Note: Date Diagnosed : 06/23/2022 2:49 PM (J34.2) Not Available [facility] 4 03:10:04 Perennial allergic rhinitis 640590821 Active 2023 KEN CARDENAS, [facility] 100 [facility] 100, [place], [address] , [place] [facility] 4 10:29:26 Snoring 52510033 Active 2023 Snoring; Note: Date Diagnosed : 04/04/2023 8:51 AM (R06.83) Not Available [facility] 4 03:10:03 Obesity 683755105 Active 2023 Other obesity; Note: Date Diagnosed : 04/04/2023 8:51 AM (E66.8) Not Available [facility] 4 03:10:04 Tinnitus of vascular origin 351944197 Active 2023 Pulsatile tinnitus, right ear; Note: Date Diagnosed : 04/04/2023 8:49 AM (H93.A1) Not Available [facility] 4 03:10:04 Sensorine ural hearing loss 13513119 Active 2023 Sensorine ural hearing loss, unilatera l, right ear, with unrestric jaswant hearing on the contralat eral side; Note: Date Diagnosed : 04/04/2023 9:26 AM (H90.41) Not Available [facility] 4 03:10:05 Abnormal auditory perceptio n 48408065 Active 2023 JOSE VELÁZQUEZ MD 100 [facility] [place] [address], [place], [address] , [place] - [facility] 4 21:49:47 Subjectiv e pulsatile tinnitus of right ear 29853880425 80420 Active 2023 JOSE VELÁZQUEZ MD 100 [facility] [place] [address], [facility] [place], [address] , [facility] - [facility] 4 21:53:02 Abnormal auditory perceptio n 71573477 Active 2023 JOSE VELÁZQUEZ MD 100 [facility] [place] [address], [facility] [place], [address] , [facility] - [facility] 4 09:14:23 Non-aller gic rhinitis 36925471097 1 Active 2023 Oh hernández [place] - [facility] 4 12:14:47 Seasonal allergic rhinitis 087101992 Active 2023 Oh hernández [place] - [facility] 4 12:14:47 Chronic sinusitis 52908829 Active 2023 Ohisabela hernández [place] - [facility] 4 12:16:47 Polyp of nasal cavity 781730280 Active 2023 Ohisabela hernández [place] - [facility] 4 12:17:03 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 Procedures Surgical History Date Name Laterality Status Provider Name and Address Organization Details Recorded Time 04/23/19 25 Allergy Immunotherapy Injections completed VALORIE LUCIO [facility] 100 [facility],[place] [address], [place], [address], [facility] - [facility] 04/23/2024 09:59:03 04/03/19 25 Allergy Immunotherapy Injections completed KEN CARDENAS [facility] [address] [facility] [address],[place] [facility], [place], [address], [facility] - [facility] 04/03/2024 10:20:26 03/28/19 25 Allergy Immunotherapy Injections completed JUAQUIN YAÑEZ RN [address],[place] [address], [place], [address], [place] [facility] 03/28/2024 10:48:14 03/20/19 25 Allergy Immunotherapy Injections completed KEN CARDENAS, RMA [address],[place] [address], [place], [address], [place] [facility] 03/20/2024 09:23:24 03/13/19 25 Allergy Immunotherapy Injections completed KEN CARDENAS, RMA [address],[place] [address], [place], [address], [place] [facility] 03/13/2024 11:58:51 03/08/19 25 Allergy Immunotherapy Injections completed KEN CARDENAS, RMA [address] [facility] [address],[place] [address], [place], [address], [place] [facility] 03/08/2024 12:13:50 03/01/20 24 Allergy Immunotherapy Injections completed JUAQUIN YAÑEZ RN [address],[place] [facility], [place], [address], [place] [facility] 03/01/2024 09:38:10 02/23/20 24 Allergy Immunotherapy Injections completed JUAQUIN YAÑEZ RN [address] [facility] [address],[place] [address], [place], [address], [place] [facility] 02/23/2024 10:01:24 02/14/20 24 Allergy Immunotherapy Injections completed KEN CARDENAS RMA [address] [facility] [address],[place] [address], [place], [address], [place] [facility] 02/14/2024 11:05:56 02/07/20 24 Allergy Immunotherapy Injections completed JUAQUIN YAÑEZ RN [address] [facility] [address],[place] [address], [place], [address], [place] [facility] 02/07/2024 10:14:23 02/03/20 24 Allergy Immunotherapy Injections completed SCOTTY RICE [address],[place] [address], [place], [address], [place] [facility] 02/03/2024 09:34:55 01/24/20 24 Allergy Immunotherapy Injections completed JUAQUIN YAÑEZ RN [address],[place] [address], [place], [address], [place] [facility] 01/24/2024 10:50:50 01/19/20 24 Allergy Immunotherapy Injections completed SCOTTY RICE [address],[place] [address], [place], [address], [place] [facility] 01/19/2024 13:18:23 01/10/20 24 Allergy Immunotherapy Injections completed SCOTTY RICE [address] [facility] [address],[place] [address], [place], [address], [place] [facility] 01/10/2024 09:42:22 01/03/20 24 Allergy Immunotherapy Injections completed JUAQUIN YAÑEZ RN [address] [facility] [address],[place] [address], [place], [address], [place] [facility] 01/03/2024 11:08:00 12/29/19 24 Allergy Immunotherapy Injections completed SCOTTY RICE [address] [facility] [address],[place] [address], [place], [address], [place] [facility] 12/29/2023 09:38:54 12/21/19 24 Allergy Immunotherapy Injections completed SCOTTY LARA [address],[place] [address] [place] [address], [address], [place] [facility] 12/21/2023 11:30:52 12/14/19 24 Allergy Immunotherapy Injections completed JUAQUIN YAÑEZ RN [address] [facility],[place] [address] [place] [address], [address], [place] [facility] 12/14/2023 11:25:12 11/23/19 24 Allergy Immunotherapy Injections completed KEN CARDENAS RMIsabela [address],[place] [address], [place], [address], [place] [facility] 11/23/2023 10:31:13 11/17/19 24 Allergy Immunotherapy Injections completed KEN CARDENAS RMA [address],[place] [address], [place], [address], [place] [facility] 11/17/2023 09:42:16 11/09/19 24 Allergy Immunotherapy Injections completed JUAQUIN YAÑEZ RN [address],[place] [address], [place], [address], [place] [facility] 11/09/2023 11:29:05 11/01/19 24 Allergy Immunotherapy Injections completed JUAQUIN YAÑEZ RN [address] [facility],[place] [address], [place], [address], [place] [facility] 11/01/2023 10:43:38 10/27/19 24 Allergy Immunotherapy Injections completed KEN CARDENAS, RMA [address] [facility],[place] [address], [place], [address], [place] [facility] 10/27/2023 11:59:30 10/19/19 24 Allergy Immunotherapy Injections completed JUAQUIN YAÑEZ RN [address] [facility],[place] [address] [place] [address], [address], [place] [facility] 10/19/2023 10:27:27 10/19/19 24 Air & Speech Audio with Tymps (74447, 81810 & 61866) completed DARRIUS OSMAN MA, CCC-A 100 [facility] [address] [place] [address], [address], [place] [facility] 10/19/2023 09:45:15 10/11/19 24 Allergy Immunotherapy Injections completed VALORIE LUCIO [facility] [address] [facility] [address],[place] [facility], [place], [address], [place] [facility] 10/11/2023 09:44:13 10/04/19 24 Allergy Immunotherapy Injections completed KEN CARDENAS RMA [address] [facility] [address],[place] [address] [place] [address], [address], [place] [facility] 10/04/2023 12:12:37 09/27/19 24 Allergy Immunotherapy Injections completed JUAQUIN YAÑEZ RN [address] [facility],[place] [address] [place] [address], [address], [place] [facility] 09/27/2023 10:51:29 09/20/19 24 Allergy Immunotherapy Injections completed JUAQUIN YAÑEZ RN 100 [facility],[place] [address], [place], [address], [place] [facility] 09/20/2023 10:20:29 09/13/19 24 Allergy Immunotherapy Injections completed SCOTTY RICE [address],[place] [address], [place], [address], [place] [facility] 09/13/2023 12:56:00 09/05/19 24 Allergy Immunotherapy Injections completed JUAQUIN YAÑEZ RN [address],[place] [address], [place], [address], [place] [facility] 09/05/2023 09:56:55 08/31/19 24 Allergy Immunotherapy Injections completed SCOTTY RICE [address] [facility] [address],[place] [address] [place] [address], [address], [place] [facility] 08/31/2023 09:14:03 08/23/19 24 Allergy Immunotherapy Injections completed KEN CARDENAS RMIsabela [address],[place] [address] [place] [address], [address], [place] [facility] 08/23/2023 09:35:11 08/17/19 24 Allergy Immunotherapy Injections completed KEN CARDENAS RMA [address],[place] [address] [place] [address], [address], [place] [facility] 08/17/2023 10:13:24 08/10/19 24 Allergy Immunotherapy Injections completed KEN CARDENAS RMA [address],[place] [address] [place] [address], [address], [place] [facility] 08/10/2023 11:14:06 08/03/19 24 Allergy Immunotherapy Injections completed JUAQUIN YAÑEZ RN [address],[place] [address], [place], [address], [place] [facility] 08/03/2023 10:25:33 07/27/19 24 Allergy Immunotherapy Injections completed KEN CARDENAS RMA [address],[place] [address], [place], [address], [place] [facility] 07/27/2023 10:39:49 07/21/19 24 Allergy Immunotherapy Injections completed KEN CARDENAS RMA [address], [address], [facility] - [facility] 07/21/2023 10:29:54 Imaging Results None recorded. Procedure Notes None recorded. Medical Equipment None Reported. Allergies Allergen ID Allergen Name Allergen Category Reaction Reaction Severity Criticality Documentation Date Start Date Code Code System Note Provider Name and Address Organization Details Recorded Time 727971 oxycodone medicatio n Not available Not available Not available 07/19/2023 7804 RxNorm React ion: Dizzi ness, Abdom inal pain, Weakn ess; Not Available [facility] 4 01:20:52 696341 lactose Not available diarrhea Not available Not available 07/19/2023 6211 RxNorm React ion: Diarr hea; Not Available [facility] 4 01:20:53 Medications Name Sig Start Date [...] mg tablet 09/08 completed Medicati on ID: [id number] B rand Name: meloxica m Send Method: E-Prescr ibed Sub s Allowed: [...] Multi-Vit schaefer tablet active Medicati on ID: [id number] B rand Name: Daily Multi-Vi tamin Se [...] (7) tablet 09/08 completed Medicati on ID: [id number] B rand Name: Jenise Wright 03/26 () Sen d Method: E-Prescr ibed Sub s Allowed: subs OK Medic ationGen ericName : Jenise Fe 03/26 () Not Available Not Available Not Available Vitals Date Recorded Body height Body weight Provider Name and Address Organization Details Last Updated DateTime 04/23/2024 162.56 cm 89909.47 g Tod Quintanilla [place] [facility] 04/23/2024 09:21:16 Social History None recorded. Functional Status None recorded. Mental Status None recorded. Family History Relationship Description Onset Age of this Age Resolved Age Notes LastModified by Organization Details LastModified Time Mother Asthma [email or web address] Not availab le 04/23/2024 09:21:21 Sister Asthma [id number] Not availab le 04/23/2024 09:21:21 Sister Complication of anesthesia [email or web address] Not available 09:21:21 Sister Allergy to food [email or web address] Not available 09:21:21 Medical History Condition Response [...] Diagnosis Note [id number] JOSE VELÁZQUEZ MD Allergy [address] [place] [address], [address] [place] [address] 07/21/2023 10:01:06 07/22/2023 13:03:52 Perennial allergic rhinitis [id number] J30.89 [id number] JOSE VELÁZQUEZ MD Allergy [address] [place] [address],[place] [address] [place] [address] 07/27/2023 10:17:14 07/27/2023 11:20:05 Perennial allergic rhinitis 233424658 J30.89 1806 JUAQUIN YAÑEZ RN Allergy [address] [place] [address], [address] [place] [address] 08/03/2023 10:24:55 08/03/2023 13:01:24 Perennial allergic rhinitis [id number] J30.89 2837 [facility], [facility] Allergy [address] [place] [address] it[address] [place] [address] 08/10/2023 10:49:51 08/10/2023 11:19:10 Perennial allergic rhinitis 106805005 J30.89 3726 [facility] Allergy [address] [place] [address], [address] [place] [address] 08/17/2023 09:07:38 08/17/2023 11:14:32 Perennial allergic rhinitis 321013780 J30.89 [id number] [facility] Allergy [address] [place] [address] it[address] [place] [address] 08/23/2023 09:03:10 08/23/2023 13:26:57 Perennial allergic rhinitis 964383485 J30.89 5606 VALORIE LUCIO [facility] Allergy [address] [place] [address], [address] [place] [address] 08/31/2023 08:49:58 08/31/2023 11:02:35 Perennial allergic rhinitis 437968491 J30.89 6153 JUAQUIN YAÑEZ RN Allergy [address] [place] [address], [address] [place] [address] 09/05/2023 08:46:12 09/05/2023 10:03:05 Perennial allergic rhinitis [id number] J30.89 [id number] VALORIE LUCIO [facility] Allergy [address] [place], [place] [address] 100 [place] [address] 09/13/2023 08:41:30 09/13/2023 14:37:18 Perennial allergic rhinitis 897641144 J30.89 8018 JUAQUIN YAÑEZ RN Allergy [address] [place], [place] [address] 100 [place] [address] 09/20/2023 10:16:20 09/21/2023 13:05:24 Perennial allergic rhinitis 351263400 J30.89 9049 JUAQUIN YAÑEZ RN Allergy [address] [place], [place] [address] [address] [place] [address], [place] [address] 09/27/2023 09:14:35 09/27/2023 10:52:56 Perennial allergic rhinitis 563182786 J30.89 [id number] KEN AGRAWAL, [facility] Allergy [address] [place], [place] [address] 100 [place] [address] 10/04/2023 12:11:42 10/04/2023 12:14:07 Perennial allergic rhinitis 719863162 J30.89 [id number] VALORIE LUCIO [facility] Allergy [address] [place] [address] ite 100 [place] [address] 10/11/2023 09:43:29 10/11/2023 11:09:54 Perennial allergic rhinitis 518257078 J30.89 [id number] JOSE VELÁZQUEZ MD [facility] [address] [place] [address] 10/19/2023 09:06:55 10/19/2023 10:05:09 Allergic rhinitis 85387481 J30.9 Doing well with immunother apy. EpiPen up-to-date . Abnormal a uditory perception 64341426 H93.291 Audio bilateral SNHL--stab le Subjective pulsatile tinnitus of right ear 7580874150 010377 H93.A1 Previous MRA was negative. Deviated nasal septum 12 3189421 J34.2 mild Sensorineu ral hearing loss 00735222 H90.41 10-19-2023 udiologica l evaluation results: Right [...] Cou ld not maintain a hermetic seal}} [id number] JUAQUIN YAÑEZ RN Allergy [address] [place] [address], ite 100 [place] [address] 10/19/2023 10:26:27 10/19/2023 10:27:52 Perennial allergic rhinitis 125140168 J30.89 [id number] [facility], [facility] Allergy 100 [facility],[place] [address] [place] [address] 10/27/2023 09:20:07 10/27/2023 13:21:33 Perennial allergic rhinitis 039722796 J30.89 [id number] JUAQUIN YAÑEZ RN Allergy [address] [place] [address],[place] ite 100 [place] [address] 11/01/2023 10:42:48 11/01/2023 10:44:36 Perennial allergic rhinitis 861027830 J30.89 [id number] JUAQUIN YAÑEZ RN Allergy [address] [place] [address],[place] [address] [place] [address] 11/09/2023 11:26:12 11/09/2023 11:29:30 Perennial allergic rhinitis [id number] J30.89 [id number] [facility] Allergy [address] [place] [address],[place] [address] [place] [address] 11/17/2023 09:40:52 11/17/2023 11:43:31 Perennial allergic rhinitis 272422334 J30.89 [id number] JUAQUIN YAÑEZ RN Allergy [address] [place] [address],[place] [address] [place] [address] 11/23/2023 10:27:55 11/23/2023 10:32:23 Perennial allergic rhinitis 162691684 J30.89 [id number] JUAQUIN YAÑEZ RN Allergy [address] [place] [address],[place] [address] [place] [address] 12/14/2023 11:23:54 12/14/2023 11:25:34 Perennial allergic rhinitis 977924439 J30.89 [id number] [facility] Allergy [address] [place] [address],[place] [address] [place] [address] 12/21/2023 11:30:12 12/21/2023 11:31:30 Perennial allergic rhinitis 543131446 J30.89 [id number] VALORIE LUCIO, [facility] Allergy [address] [place] [address],[place] [address] [place] [address] 12/29/2023 09:38:10 12/29/2023 09:40:16 Perennial allergic rhinitis 588139352 J30.89 [id number] JUAQUIN YAÑEZ RN Allergy [address] [place] [address],[place] [address] [place] [address] 01/03/2024 11:06:53 01/03/2024 11:08:17 Perennial allergic rhinitis 311862254 J30.89 [id number] VALORIE LUCIO [facility] Allergy [address] [place] [address],[place] [address] [place] [address] 01/10/2024 09:41:40 01/10/2024 09:42:52 Perennial allergic rhinitis [id number] J30.89 [id number] VALORIE LUCIO, [facility] Allergy [address] [place] [address],[place] [address] [place] [address] 01/19/2024 13:16:02 01/19/2024 13:20:09 Perennial allergic rhinitis [id number] J30.89 [id number] JUAQUIN YAÑEZ RN Allergy [address] [place] [address],[place] [address] [place] [address] 01/24/2024 10:49:50 01/24/2024 10:52:32 Perennial allergic rhinitis 232722784 J30.89 [id number] VALORIE LUCIO, [facility] Allergy [address] [place] [address],[place] [address] [place] [address] 02/03/2024 09:25:49 02/03/2024 09:35:31 Perennial allergic rhinitis [id number] J30.89 [id number] JUAQUIN YAÑEZ RN Allergy [address] [place] [address],[place] [address] [place] [address] 02/07/2024 10:13:39 02/07/2024 10:14:50 Perennial allergic rhinitis [id number] J30.89 [id number] KEN RASTACOUNT INCLUDES THE [facility], [facility] Allergy [address] [place] [address],[place] [address] [place] [address] 02/14/2024 11:05:15 02/14/2024 11:06:25 Perennial allergic rhinitis [id number] J30.89 [id number] JUAQUIN YAÑEZ RN Allergy [address] [place] [address],[place] [address] [place] [address] 02/23/2024 10:00:14 02/23/2024 10:01:52 Perennial allergic rhinitis [id number] J30.89 [id number] JUAQUIN YAÑEZ RN Allergy [address] [place] [address],[place] [address] [place] [address] 03/01/2024 09:37:35 03/01/2024 09:38:44 Perennial allergic rhinitis [id number] J30.89 [id number] KEN RASTACOUNT INCLUDES THE [facility], A Allergy [address] [place] [address],[place] [address] [place] [address] 03/08/2024 12:13:01 03/08/2024 12:14:59 Perennial allergic rhinitis [id number] J30.89 [id number] KEN NGHIA, RMA Allergy 100 [facility],[place] [address] [place] [address] 03/13/2024 11:57:35 03/13/2024 11:59:25 Perennial allergic rhinitis [id number] J30.89 [id number] KEN NGHIA, RMA Allergy 100 [facility],[place] [address] [place] [address] 03/20/2024 09:19:50 03/20/2024 09:23:46 Perennial allergic rhinitis [id number] J30.89 [id number] JUAQUIN YAÑEZ RN Allergy 100 [facility],[place] [address] [place] [address] 03/28/2024 10:20:37 03/28/2024 10:48:37 Perennial allergic rhinitis [id number] J30.89 [id number] [facility] RASTACOUNT INCLUDES THE [facility], A Allergy 100 [facility],[place] [address] [place] [address] 04/03/2024 10:19:02 04/03/2024 10:20:47 Perennial allergic rhinitis [id number] J30.89 [id number] JOSE VELÁZQUEZ MD [facility] - Jen[facility] ld 100 [facility] [place] [address] 04/23/2024 09:16:11 04/23/2024 09:38:20 Allergic rhinitis [id number] J30.89 Doing well with immunother apy. New Epipen prescribed [id number] VALORIE LUCIO, [facility] Allergy [address] [facility],[address] [place] [address] 04/23/2024 09:58:15 04/23/2024 09:59:52 Perennial allergic rhinitis [id number] J30.89 Health Concerns Section Related Observation LastModified by Organization Detai ls LastModified Time None Recorded Concern Status LastModified by Organization Details LastModified Time None Recorded Advance Directives Directive None Recorded Payers Encounter Date Sequence Insurance Name Policy Number Policy Roche Covered Member ID Roche Member ID Guarantor Name 03/20/2024 1 [place] [facility] ([facility] [id number] Shelia Fitzgerald [id number] Shelia Fitzgerald 03/28/2024 1 [place] [facility] [place] [id number] Shelia Haya [id number] Shelia Haya 04/03/2024 1 [place] [facility] ([facility] [place]) [id number] Shelia Haya [id number] Shelia Haya 04/23/2024 1 [place] [facility] ([facility] [place]) [id number] Shelia Haya [id number] Shelia Haya 04/23/2024 1 [place] [facility] ([facility] [place] [id number] Shelia Haya [id number] Shelia Haya Notes Date Note Type [...] showed gastritis --omeprazole now JOSE DIXON MD [address] [place] [address], [place], [id number], [facility] 04/23/2024 09:37:17 OBGyn Episode No OBEpisode recorded.
== END 2024-04-30 07:47 | disposition home or self-care (01) ==
LOC: HO.XRAY 07:46
PROVIDERS: PCP Internal Medicine; Visit Provider Nurse Practitioner Family
DX: R13.10 Dysphagia, unspecified (principal)
CPT/HCPCS: 74220

== ENCOUNTER → 2024-04-30 07:47 | Outpatient (BNV) | payer BC, SELFPAY | PROVIDERS: PCP Internal Medicine; Visit Provider Physician Assistant Surgical | DX: R13.10 Dysphagia, unspecified (principal) | CPT/HCPCS: 74246; 74248 ==

== ENCOUNTER 2024-05-01 12:36 | Outpatient (AMB) | payer BC, SELFPAY ==
--- NOTE | 2024-05-01 12:39 | A.OFFVIS_ITS ---
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 The patient states that she underwent left knee arthroscopic surgery in 2007 while living in [place]. She got temporary relief from that procedure. She has been seen by another orthopedic surgeon who recommended total knee replacement surgery. She wishes to hold off on surgery if at all possible. She has had cortisone injections in the past. The most recent cortisone injection gave her no relief. She has not had a viscosupplementation injection. She has failed the last 3 months of conservative treatment. She has tried Tylenol, anti-inflammatory medicines and topical creams which gave her minimal relief. She also tried physical therapy which aggravated her pain. She states that her left knee will give out several times per day. At this point her left knee pain is interfering with her activities of daily living and her ability to sleep well through the night. Allergies lactose Allergy (Intermediate, Verified 05/01/24 12:52) diarrhea oxycodone Adverse Reaction (Mild, Verified 05/01/24 12:52) Vomiting, stomach pain Medication List - Last Reconciled 05/01/24 by Radha Young, RN apixaban (Eliquis) 2.5 mg PO BID betamethasone dipropionate 0.05% 1 appl topical BID PRN 2 weeks bupropion HCl XL 150 mg PO DAILY cyclobenzaprine 10 mg PO TID PRN 30 days epinephrine (EpiPen) 0.3 mg IM Q4H PRN ferrous sulfate (Feosol) 325 mg PO DAILY levothyroxine 25 mcg PO QAM 90 days multivitamin 1 tab PO DAILY omeprazole 20 mg PO BID topiramate 100 mg PO DAILY tramadol 50 mg PO DAILY PRN 30 days [facility] Medical History (Updated 04/25/24 @ 09:04 by Bonnie Ahn MD) Obesity (BMI 35.0-39.9 without comorbidity) Deep vein thrombosis (07/28/22) Class 1 obesity with body mass index (BMI) of 34.0 to 34.9 in adult Thrombocytopenia Physical exam Pancytopenia Osteoarthritis of left knee Hypovitaminosis D Toenail deformity Obesity Left shoulder pain Constipation by delayed colonic transit Hypothyroidism Surgical History H/O gastric sleeve Venous insufficiency of left leg History of surgery History of cholecystectomy History of arthroscopy of left knee History of section Family History Father Diabetes CVD (cardiovascular disease) Myocardial infarction Mother CVD (cardiovascular disease) Hypertension Maternal Grandmother No problems noted. Maternal Grandfather Prostate cancer Family/Other Mental health disorder Social History Household Members: Spouse and Children Housing: House Are you a primary care navigator to a significant other at home: No Do you presently have visiting nurse or other home services: No Alcohol intake: never Comment: S3 Patient Tobacco Use Status: Never used Tobacco e-Cigarette/Vaping Use: Never Used Second Hand Smoke Exposure: No service: No Current occupational status: employed Current occupational exposures/hazards: No Cognitive needs: No Hearing needs: No Vision needs: Yes Physical Exam Vital Signs: BMI result Body Mass Index 32.8 Const Other: Well-nourished well-developed very friendly female awake alert and oriented x3 in no acute distress Extrem Other: Bilateral lower extremity examination shows good capillary refill, no skin lesions noted, normal sensation light touch Left knee examination shows a minimal effusion, palpable crepitus with range of motion, pain with range of motion Results Reviewed Results Reviewed: X-rays of the patient's left knee show moderate to severe joint space narrowing most significant in the lateral compartment, subchondral sclerosis, no acute bony abnormalities Assessment & Plan Assessment & Plan (1) Osteoarthritis of left knee: Code(s): M17.12 - Unilateral primary osteoarthritis, left knee Category: Medical Plan Ms. Fitzgerald presents with progressively worsening left knee pain and mechanical symptoms due to osteoarthritis. I did have the patient fitted with a knee brace today. I do find that the knee brace is a medical necessity because of her symptoms of instability. The brace will help prevent future falls. I will also see whether or not the patient's insurance company will cover a viscosupplementation injection such as Durolane. She wishes to hold off on total knee replacement surgery for as long as possible. I agree with this plan. I will see the patient back once the injection is available. Feel free to call me at any time should questions regarding her orthopedic management arise. Thank you very much for asking me to see this very friendly patient. I spent 21 minutes in reviewing the patient's records and imaging studies, seeing the patient and documenting in the medical record. Medications: Discontinued pantoprazole take one tablet half an hour before breakfast Discontinued Reason: Patient no longer taking 40 mg PO DAILY 30 tabs 2RF K21.9 - Gastro-esophageal reflux disease without esophagitis Coding Level of Care Code New Pt Level 3 (46696) Complex EM visit Add On G2211 Diagnoses Osteoarthritis of left knee M17.12
[2024-05-01 12:51] VITALS: BMI 32.8
--- OUTSIDE RECORDS SUMMARY | 2024-05-01 15:19 | XMS_ITS | Continuity of Care Document ---
Author Organization [place] - [facility], [facility] Address [address] [place] [address] Care Team Providers Care Senior Account Director Name Role Phone TOD JENKINS Primary Care Provider [phone] Assessment Encounter Date Assessment Date Assessment LastModified [...] Organization Details Last Modified Time Details Appointments Allergy Shot 2024 10:00A M [facility] Not available Not available Not available Establish ed- Allergy f-up 6mon 2024 10:30A M JOSE STONE MD Not available Not available Not available Lab None recorded. Referral None recorded. Procedures None recorded. Surgeries None recorded. Imaging None recorded. Medication Orders epinephri ne 0.3 mg/0.3 mL injection , auto-inje ctor 2024 025 [facility], [address] [place] [address], [id number], 04/23/2024 09:36:58 Patient TargetsNo targets recorded. Patient InstructionsNo instructions recorded. Reason for Referral None Reported. Problems Name Problem SNOMED Code Status Onset Date Resolution Date Notes Provider Name and Address Organization Details Recorded Time Achalasia of esophagus 92618418 Active 2022 Achalasia NOS; Note: Date Diagnosed : 06/23/2022 2:49 PM (K22.0) Not Available [facility] 4 03:10:05 Respirato ry finding 137941293 Active 2022 Feeling of foreign body in throat; Note: Date Diagnosed : 06/23/2022 2:49 PM (R09.89) Not Available [facility] 4 03:10:05 Cardiovas cular finding 942891790 Active 2022 Feeling of foreign body in throat; Note: Date Diagnosed : 06/23/2022 2:49 PM (R09.89) Not Available [facility] 4 03:10:05 Posterior rhinorrhe a 44049999 Active 2022 Postnasal drip; Note: Date Diagnosed : 06/23/2022 2:49 PM (R09.82) Not Available [facility] 4 03:10:04 Allergic rhinitis 52629917 Active 2023 Allergic rhinitis: Due to other [...] Date Diagnosed : 10/16/19 Not Available [facility] 4 01:25:32 Deviated nasal septum 930593998 Active 2022 Deviated nasal septum; Note: Date Diagnosed : 06/23/2022 2:49 PM (J34.2) Not Available [facility] 4 03:10:04 Perennial allergic rhinitis 991764754 Active 2023 [address] [address], [place], [address] , [facility] - [facility] 4 10:29:26 Snoring 45076532 Active 2023 Snoring; Note: Date Diagnosed : 04/04/2023 8:51 AM (R06.83) Not Available [facility] 4 03:10:03 Obesity 790725045 Active 2023 Other obesity; Note: Date Diagnosed : 04/04/2023 8:51 AM (E66.8) Not Available [facility] 4 03:10:04 Tinnitus of vascular origin 135135131 Active 2023 Pulsatile tinnitus, right ear; Note: Date Diagnosed : 04/04/2023 8:49 AM (H93.A1) Not Available [facility] 4 03:10:04 Sensorine ural hearing loss 42718528 Active 2023 Sensorine ural hearing loss, unilatera l, right ear, with unrestric jaswant hearing on the contralat eral side; Note: Date Diagnosed : 04/04/2023 9:26 AM (H90.41) Not Available [facility] 4 03:10:05 Abnormal auditory perceptio n 50620249 Active 2023 JOSE VELÁZQUEZ MD [address] [facility] [place] [address], [place], [address] , [facility] - [facility] 4 21:49:47 Subjectiv e pulsatile tinnitus of right ear 36946858963 39904 Active 2023 JOSE VELÁZQUEZ MD [address] [facility],[place] [address], [place], [place], [address] , [facility] - [facility] 4 21:53:02 Abnormal auditory perceptio n 21071349 Active 2023 JOSE VELÁZQUEZ MD [address] [facility],[place] [address], [place], [place], [address] , [facility] - [facility] 4 09:14:23 Non-aller gic rhinitis 82782069525 1 Active 2023 Oh hernández [place] - [facility] 4 12:14:47 Seasonal allergic rhinitis 009464750 Active 2023 Oh hernández [place] - [facility] 4 12:14:47 Chronic sinusitis 09229720 Active 2023 Oh hernández [place] - [facility] 4 12:16:47 Polyp of nasal cavity 339993052 Active 2023 Oh hernández [place] - [facility] 4 12:17:03 Polypoid sinus degenerat ion 83562055 Active 2023 Oh hernández [place] - [facility] 4 12:17:03 Problem Notes None recorded. Procedures Surgical History Date Name Laterality Status Provider Name and Address Organization Details Recorded Time 05/01/19 Allergy Immunotherapy Injections completed KEN KORZEC, RMA [address],[place] [address], [place], [address], [place] [facility] 05/01/2024 10:21:08 04/23/19 25 Allergy Immunotherapy Injections completed SCOTTY RICE [address] [address], [place], [address], [place] [facility] 04/23/2024 09:59:03 04/03/19 25 Allergy Immunotherapy Injections completed KEN CARDENAS, RMA [address] [address], [place], [address], [place] [facility] 04/03/2024 10:20:26 03/28/19 25 Allergy Immunotherapy Injections completed JUAQUIN YAÑEZ RN [address] [facility] [place] [address] [place] [address], [address], [place] [facility] 03/28/2024 10:48:14 03/20/19 25 Allergy Immunotherapy Injections completed KEN CARDENAS RMA [address] [facility] [place] [address] [place] [address], [address], [place] [facility] 03/20/2024 09:23:24 03/13/19 25 Allergy Immunotherapy Injections completed KEN CARDENAS, RMA [address],[place] [address] [place] [address], [address], [place] [facility] 03/13/2024 11:58:51 03/08/19 25 Allergy Immunotherapy Injections completed KEN CARDENAS RMA [address] [facility] [place] [address] [place] [address], [address], [place] [facility] 03/08/2024 12:13:50 03/01/20 24 Allergy Immunotherapy Injections completed JUAQUIN YAÑEZ RN [address],[place] [address] [place] [address], [address], [place] [facility] 03/01/2024 09:38:10 02/23/20 24 Allergy Immunotherapy Injections completed JUAQUIN YAÑEZ RN [address],[place] [address] [place] [address], [address], [place] [facility] 02/23/2024 10:01:24 02/14/20 24 Allergy Immunotherapy Injections completed KEN CARDENAS, RMA [address], [place], [address], [place] [facility] 02/14/2024 11:05:56 02/07/20 24 Allergy Immunotherapy Injections completed JUAQUIN YAÑEZ RN [address],[place] [address], [place], [address], [place] [facility] 02/07/2024 10:14:23 02/03/20 24 Allergy Immunotherapy Injections completed SCOTTY RICE [address],[place] [address], [place], [address], [place] [facility] 02/03/2024 09:34:55 01/24/20 24 Allergy Immunotherapy Injections completed JUAQUIN YAÑEZ RN [address] [address], [place], [address], [place] [facility] 01/24/2024 10:50:50 01/19/20 24 Allergy Immunotherapy Injections completed SCOTTY RICE [address],[place] [address] [place] [address], [address], [place] [facility] 01/19/2024 13:18:23 01/10/20 24 Allergy Immunotherapy Injections completed SCOTTY RICE [address] [address], [place], [address], [place] [facility] 01/10/2024 09:42:22 01/03/20 24 Allergy Immunotherapy Injections completed JUAQUIN YAÑEZ RN [address],[place] [address] [place] [address], [address], [place] [facility] 01/03/2024 11:08:00 12/29/19 24 Allergy Immunotherapy Injections completed SCOTTY RICE [address] [address], [place], [address], [place] [facility] 12/29/2023 09:38:54 12/21/19 24 Allergy Immunotherapy Injections completed KEN CARDENAS RMIsabela [address], [place], [address], [place] [facility] 12/21/2023 11:30:52 12/14/19 24 Allergy Immunotherapy Injections completed JUAQUIN YAÑEZ RN [address],[place] [address] [place] [address], [address], [place] [facility] 12/14/2023 11:25:12 11/23/19 24 Allergy Immunotherapy Injections completed KEN CARDENAS [facility] [address] [facility],[place] [address] [place] [address], [address], [place] [facility] 11/23/2023 10:31:13 11/17/19 24 Allergy Immunotherapy Injections completed KEN CARDENAS Isabela [address] [facility] [place] [address] [place] [address], [address], [place] [facility] 11/17/2023 09:42:16 11/09/19 24 Allergy Immunotherapy Injections completed JUAQUIN YAÑEZ RN [address] [facility],[address], [address], [place] [facility] 11/09/2023 11:29:05 11/01/19 24 Allergy Immunotherapy Injections completed JUAQUIN YAÑEZ RN [address] [facility],[address], [address], [facility] - [facility] [place] 11/01/2023 10:43:38 10/27/19 24 Allergy Immunotherapy Injections completed KEN CARDENAS Isabela [address] [facility],[address], [address], [place] [facility] 10/27/2023 11:59:30 10/19/19 24 Allergy Immunotherapy Injections completed JUAQUIN YAÑEZ RN [address] [facility],[address], [address], [facility] - [facility] 10/19/2023 10:27:27 10/19/19 24 Air & Speech Audio with Tymps (45529, 69787 & 03483) completed DARRIUS OSMAN [place], JOAN-Isabela [address] [facility],[address], [address], [place] [facility] 10/19/2023 09:45:15 10/11/19 24 Allergy Immunotherapy Injections completed SCOTTY RICE [address] [facility],[address], [address], [place] [facility] 10/11/2023 09:44:13 10/04/19 24 Allergy Immunotherapy Injections completed KEN CARDENAS RMIsabela [address],[place] [address], [place], [address], [place] [facility] 10/04/2023 12:12:37 09/27/19 24 Allergy Immunotherapy Injections completed JUAQUIN YAÑEZ RN [address],[place] [address], [place], [address], [place] [facility] 09/27/2023 10:51:29 09/20/19 24 Allergy Immunotherapy Injections completed JUAQUIN YAÑEZ RN [address] [facility], [place], [address], [place] [facility] 09/20/2023 10:20:29 09/13/19 24 Allergy Immunotherapy Injections completed SCOTTY RICE [address],[place] [address], [place], [address], [place] [facility] 09/13/2023 12:56:00 09/05/19 24 Allergy Immunotherapy Injections completed JUAQUIN YAÑEZ RN [address] [facility] [address],[place] [address] [place] [address], [address], [place] [facility] 09/05/2023 09:56:55 08/31/19 24 Allergy Immunotherapy Injections completed SCOTTY RICE [address],[place] [address] [place] [address], [address], [place] [facility] 08/31/2023 09:14:03 08/23/19 24 Allergy Immunotherapy Injections completed KEN CARDENAS RMA [address],[place] [address], [place], [address], [place] [facility] 08/23/2023 09:35:11 08/17/19 24 Allergy Immunotherapy Injections completed KEN CARDENAS RMA [address],[place] [address], [place], [address], [place] [facility] 08/17/2023 10:13:24 08/10/19 24 Allergy Immunotherapy Injections completed KEN CARDENAS RMA [address],[place] [address], [place], [address], [place] [facility] 08/10/2023 11:14:06 08/03/19 24 Allergy Immunotherapy Injections completed JUAQUIN YAÑEZ RN [address] [facility],[address], [address], [facility] - [facility] 08/03/2023 10:25:33 07/27/19 24 Allergy Immunotherapy Injections completed KEN CARDENAS [facility] [address] [facility],[address], [address], [facility] 07/27/2023 10:39:49 07/21/19 24 Allergy Immunotherapy Injections completed KEN RASTALEANA, [facility] [address] [facility],[address], [address], [facility] 07/21/2023 10:29:54 Imaging Results None recorded. Procedure Notes None recorded. Medical Equipment None Reported. Allergies Allergen ID Allergen Name Allergen Category Reaction Reaction Severity Criticality Documentation Date Start Date Code Code System Note Provider Name and Address Organization Details Recorded Time 199615 oxycodone medicatio n Not available Not available Not available 07/19/2023 7804 RxNorm React ion: Dizzi ness, Abdom inal pain, Weakn ess; Not Available [facility] 4 01:20:52 049043 lactose Not available diarrhea Not available Not available 07/19/2023 6211 RxNorm React ion: Diarr hea; Not Available [facility] 4 01:20:53 Medications Name Sig Start [...] mg tablet 09/08 completed Medicati on ID: [id number] B rand Name: dwight hill Send Method: [...] 0.3 mg/0.3 mL injection , auto-inje ctor USE AUTO INJECTOR DIRECTED FOR ANAPHYLA XIS. active Not Available Not Available No t [...] Multi-Vit schaefer tablet active Medicati on ID: [id number] B rand Name: Daily Multi-Vi tamin Se [...] (7) tablet 09/08 completed Medicati on ID: [id number] B rand Name: Jenise 03/26 () Cortes d Method: E-Prescr ibed Sub s Allowed: subs OK Medic ationGen ericName : Jenise Fe 03/26 () Not Available Not Available Not Available Vitals Date Recorded Body height Body weight Provider Name and Address Organization Details Last Updated DateTime 04/23/2024 162.56 cm 46303.47 g Tod Quintanilla [place] - [facility] 04/23/2024 09:21:16 Social History None recorded. Functional Status None recorded. Mental Status None recorded. Family History Relationship Description Onset Age of this Age Resolved Age Notes LastModified by Organization Details LastModified Time Mother Asthma [email or web address] Not availab le 04/23/2024 09:21:21 Sister Asthma [email or web address] Not availab le 04/23/2024 09:21:21 Sister Complication of anesthesia [email or web address] Not available 09:21:21 Sister Allergy to food [email or web address] Not available 09:21:21 Medical History Condition Response Allergies/Hayfever Y Heart Problems N Anxiety N Tonsil Infections N Emphysema N Migraines N Thyroid Problems Y Glaucoma N Depression N COPD N Developmental Delay N Nasal or Sinus Problems Y Anemia Y Immune System Disorder N Anesthesia Complications N Heart Attack ([place]) N Other Skin Condition N Diabetes N [...] SNOMED-CT Code Diagnosis ICD10 Code Diagnosis Note [id number] JUAQUIN YAÑEZ RN Allergy [address] [facility],[address] [place] [address] 03/28/2024 10:20:37 03/28/2024 10:48:37 Perennial allergic rhinitis [id number] J30.89 [id number] KEN CARDENAS [facility] Allergy 100 [facility] 100 [facility] [address] 04/03/2024 10:19:02 04/03/2024 10:20:47 Perennial allergic rhinitis 518903148 J30.89 [id number] JOSE VELÁZQUEZ MD [facility] 100 [place] [address] 04/23/2024 09:16:11 04/23/2024 09:38:20 Allergic rhinitis 49123379 J30.89 Doing well with immunother apy. New Epipen prescribed [id number] VALORIE LUCIO [facility] Allergy [address] [place] [address] 100 [place] [address] 04/23/2024 09:58:15 04/23/2024 09:59:52 Perennial allergic rhinitis 432946282 J30.89 Health Concerns Section Related Observation LastModified by Organization Detai ls LastModified Time None Recorded Concern Status LastModified by Organization Details LastModified Time None Recorded Payers Encounter Date Sequence Insurance Name Policy Number Policy Roche Covered Member ID Roche Member ID Guarantor Name 04/23/2024 1 [place] [facility] [id number] Shelia Fitzgerald [id number] Shelia Fitzgerald Notes Date Note Type [...] showed gastritis --omeprazole now JOSE DIXON MD [address] [place] [address], [address], [facility] - [facility] 04/23/2024 09:37:17 OBGyn Episode No OBEpisode recorded.
--- OUTSIDE RECORDS SUMMARY | 2024-05-01 15:19 | XMS_ITS | Clinical Summary ---
Author Organization [facility] Address [address] [place] [address] Phone Care Team Providers Care Electrical Continuity Tester Name Role Phone Bonnie Ahn MD Primary Care Provider [phone] Allergies Active Allergy Reactions Criticality Noted Date [...] AM EST Office Visit Bariatric Surgery - [address] [place] [address] Radha West MD Obesity, Class I, [...] HISTORY PROCEDURE: ARTHROSCOPY PROCEDURE NEC SECTION PROCEDURE: [place] DELIVERY ONLY OTHER SURGICAL HISTORY PROCEDURE: HISTORY [...] AM EDT Office Visit Bariatric Surgery - [place] [address] [facility] [address] [place] [phone] Radha West MD 175 [facility] [address] [place] [address] Health Maintenance Due Date Last Done Comments [...] to complete this topic Insurance Care Teams Electrical Continuity Tester Relationship Specialty Start Date End Date Jimy, Bonnie R, MD [address] [facility] , [address] [facility] D/B/A: [facility] ESTEFANÍA Larson PCP - General Internal Medicine 03/29/19
--- OUTSIDE RECORDS SUMMARY | 2024-05-01 15:19 | XMS_ITS | Data Portability ---
Author Organization [place] - [facility], Allergy Address [address] [place] [address] Care Team Providers Care Customer Records Division Supervisor Name Role Phone TOD JENKINS Primary Care [...] Vial Test Notes:?? Not available 04/23/2024 09:59:27 05/01/2024 05/01/2024 Visit With: Juaquin Yañez RN Use of Antihistamines: No If yes: Vial Test Change in medications: No If yes ?? Increase in asthma symptoms If yes, inhaler use: Reaction to last injections: No If yes: ?? Allergy Symptoms: Other: ?? Missed: Dose Aware of Vial Test Notes:?? [email or web address] Not available 05/01/2024 10:21:34 Plan of Treatment Reminders Order Date Submit Date Provider Last Modified By Organization Details Last Modified Time Details Appointments Allergy Shot 2024 10:00A M [facility] Not available Not available Not available Establish ed- Allergy f-up 6mon 2024 10:30A M JOSE STONE MD Not available Not available Not available Lab None recorded. Referral None recorded. Procedures None recorded. Surgeries None recorded. Imaging None recorded. Medication Orders epinephri ne 0.3 mg/0.3 mL injection , auto-inje ctor 2024 025 [facility], [address] [place] [address], [id number], 04/23/2024 09:36:58 Patient TargetsNo targets recorded. Patient InstructionsNo instructions recorded. Reason for Referral None Reported. Problems Name Problem SNOMED Code Status Onset Date Resolution Date Notes Provider Name and Address Organization Details Recorded Time Achalasia of esophagus 96897615 Active 2022 Achalasia NOS; Note: Date Diagnosed : 06/23/2022 2:49 PM (K22.0) Not Available [facility] 03:10:05 Respirato ry finding 485258799 Active 2022 Feeling of foreign body in throat; Note: Date Diagnosed : 06/23/2022 2:49 PM (R09.89) Not Available [facility] 4 03:10:05 Cardiovas cular finding 498859263 Active 2022 Feeling of foreign body in throat; Note: Date Diagnosed : 06/23/2022 2:49 PM (R09.89) Not Available [facility] 4 03:10:05 Posterior rhinorrhe a 72380460 Active 2022 Postnasal drip; Note: Date Diagnosed : 06/23/2022 2:49 PM (R09.82) Not Available [facility] 4 03:10:04 Allergic rhinitis 73545377 Active 2023 Allergic rhinitis: Due to other [...] Note: Date Diagnosed : 10/16/19 Not Available [facility] 4 01:25:32 Deviated nasal septum 831166943 Active 2022 Deviated nasal septum; Note: Date Diagnosed : 06/23/2022 2:49 PM (J34.2) Not Available [facility] 4 03:10:04 Perennial allergic rhinitis 228471015 Active 2023 KEN NGHIA, [facility] 100 [facility] 100, [place], [address] , [facility] - [facility] 4 10:29:26 Snoring 99719042 Active 2023 Snoring; Note: Date Diagnosed : 04/04/2023 8:51 AM (R06.83) Not Available [facility] 4 03:10:03 Obesity 614067109 Active 2023 Other obesity; Note: Date Diagnosed : 04/04/2023 8:51 AM (E66.8) Not Available [facility] 4 03:10:04 Tinnitus of vascular origin 320694752 Active 2023 Pulsatile tinnitus, right ear; Note: Date Diagnosed : 04/04/2023 8:49 AM (H93.A1) Not Available [facility] 4 03:10:04 Sensorine ural hearing loss 74515056 Active 2023 Sensorine ural hearing loss, unilatera l, right ear, with unrestric jaswant hearing on the contralat eral side; Note: Date Diagnosed : 04/04/2023 9:26 AM (H90.41) Not Available [facility] 4 03:10:05 Abnormal auditory perceptio n 05009181 Active 2023 JOSE VELÁZQUEZ MD [address] [facility], [place], [address] , [facility] - [facility] [place] 4 21:49:47 Subjectiv e pulsatile tinnitus of right ear 40329251499 74007 Active 2023 JOSE VELÁZQUEZ MD [address] [facility] [address],[address], [place], [address] , [facility] - [facility] [place] 4 21:53:02 Abnormal auditory perceptio n 19749392 Active 2023 JOSE VELÁZQUEZ MD [address] [facility],[address], [place], [address] , [facility] - [facility] [place] 4 09:14:23 Non-aller gic rhinitis 93744827031 1 Active 2023 Oh hernández [place] - [facility] [place] 4 12:14:47 Seasonal allergic rhinitis 970816494 Active 2023 Oh hernández [place] - [facility] [place] 4 12:14:47 Chronic sinusitis 55392934 Active 2023 Oh hernández [place] - [facility] [place] 4 12:16:47 Polyp of nasal cavity 031985687 Active 2023 Oh hernández [place] - [facility] [place] 4 12:17:03 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 Procedures Surgical History Date Name Laterality Status Provider Name and Address Organization Details Recorded Time 05/01/19 Allergy Immunotherapy Injections completed KEN CARDENAS [facility] [address],[place] [facility] [place], [place], [address], [facility] - [facility] 05/01/2024 10:21:08 04/23/19 Allergy Immunotherapy Injections completed VALORIE LUCIO [facility] [address] [facility], [place], [address], [facility] - [facility] 04/23/2024 09:59:03 04/03/19 25 Allergy Immunotherapy Injections completed KEN AGRAWALC, RMA [address], [place], [address], [place] [facility] [place] 04/03/2024 10:20:26 03/28/19 25 Allergy Immunotherapy Injections completed JUAQUIN YAÑEZ RN [address], [place], [address], [place] [facility] [place] 03/28/2024 10:48:14 03/20/19 25 Allergy Immunotherapy Injections completed KEN RASTAZEC, RMA [address], [place], [address], [place] [facility] [place] 03/20/2024 09:23:24 03/13/19 25 Allergy Immunotherapy Injections completed KEN AGRAWALC, RMA [address],[place] [address], [address], [place] [facility] [place] 03/13/2024 11:58:51 03/08/19 25 Allergy Immunotherapy Injections completed KEN AGRAWALC, RMA [address],[place] [address], [address], [place] [facility] [place] 03/08/2024 12:13:50 03/01/20 24 Allergy Immunotherapy Injections completed JUAQUIN YAÑEZ RN [address],[place] [address] [place] [address], [address], [place] [facility] [place] 03/01/2024 09:38:10 02/23/20 24 Allergy Immunotherapy Injections completed JUAQUIN YAÑEZ RN [address],[place] [address] [place] [address], [address], [place] [facility] [place] 02/23/2024 10:01:24 02/14/20 24 Allergy Immunotherapy Injections completed KEN CARDENAS, RMA [address],[place] [address], [address], [place] [facility] [place] 02/14/2024 11:05:56 02/07/20 24 Allergy Immunotherapy Injections completed JUAQUIN YAÑEZ RN [address],[place] [address], [address], [place] [facility] [place] 02/07/2024 10:14:23 02/03/20 24 Allergy Immunotherapy Injections completed SCOTTY RICE [address], [place], [address], [place] [facility] [place] 02/03/2024 09:34:55 01/24/20 24 Allergy Immunotherapy Injections completed JUAQUIN YAÑEZ RN [address], [place], [address], [place] [facility] [place] 01/24/2024 10:50:50 01/19/20 24 Allergy Immunotherapy Injections completed SCOTTY RICE [address], [place], [address], [place] [facility] [place] 01/19/2024 13:18:23 01/10/20 24 Allergy Immunotherapy Injections completed SCOTTY RICE [address], [place], [address], [place] [facility] [place] 01/10/2024 09:42:22 01/03/20 24 Allergy Immunotherapy Injections completed JUAQUIN YAÑEZ RN [address],[place] [address] [place] [address], [address], [place] [facility] [place] 01/03/2024 11:08:00 12/29/19 24 Allergy Immunotherapy Injections completed SCOTTY RICE [address],[place] [address], [address], [place] [facility] [place] 12/29/2023 09:38:54 12/21/19 24 Allergy Immunotherapy Injections completed SCOTTY GUTHRIE [address],[place] [address], [address], [place] [facility] 12/21/2023 11:30:52 12/14/19 24 Allergy Immunotherapy Injections completed JUAQUIN YAÑEZ RN [address],[place] [address] [place] [address], [address], [place] [facility] [place] 12/14/2023 11:25:12 11/23/19 24 Allergy Immunotherapy Injections completed SCOTTY GUTHRIE [address],[place] [address], [address], [place] [facility] [place] 11/23/2023 10:31:13 11/17/19 24 Allergy Immunotherapy Injections completed KEN CARDENAS, RMA [address], [place], [address], [place] [facility] 11/17/2023 09:42:16 11/09/19 24 Allergy Immunotherapy Injections completed JUAQUIN YAÑEZ RN [address], [place], [address], [place] [facility] [place] 11/09/2023 11:29:05 11/01/19 24 Allergy Immunotherapy Injections completed JUAQUIN YAÑEZ RN [address] [facility] [address],[place] [address] [place] [address], [address], [place] [facility] [place] 11/01/2023 10:43:38 10/27/19 24 Allergy Immunotherapy Injections completed KEN CADRENAS RMKendell [address],[place] [address] [place] [address], [address], [place] [facility] [place] 10/27/2023 11:59:30 10/19/19 24 Allergy Immunotherapy Injections completed JUAQUIN YAÑEZ RN [address] [facility] [address],[place] [address] [place] [address], [address], [place] [facility] 10/19/2023 10:27:27 10/19/19 24 Air & Speech Audio with Tymps (71574, 11998 & 73014) completed DARRIUS OSMAN MA, CCC-A [address] [facility] [address],[place] [address] [place] [address], [address], [place] [facility] 10/19/2023 09:45:15 10/11/19 24 Allergy Immunotherapy Injections completed SCOTTY RICE [address],[place] [facility] [place], [place], [address], [place] [facility] [place] 10/11/2023 09:44:13 10/04/19 24 Allergy Immunotherapy Injections completed KEN CARDENAS RMA [address], [place], [address], [place] [facility] [place] 10/04/2023 12:12:37 09/27/19 24 Allergy Immunotherapy Injections completed JUAQUIN YAÑEZ RN [address], [place], [address], [place] [facility] [place] 09/27/2023 10:51:29 09/20/19 24 Allergy Immunotherapy Injections completed JUAQUIN YAÑEZ RN [address],[place] [address], [address], [place] [facility] 09/20/2023 10:20:29 09/13/19 24 Allergy Immunotherapy Injections completed SCOTTY RICE [address],[place] [address] [place] [address], [address], [place] [facility] 09/13/2023 12:56:00 09/05/19 24 Allergy Immunotherapy Injections completed JUAQUIN YAÑEZ RN [address] [facility] [address],[place] [address] [place] [address], [address], [place] [facility] [place] 09/05/2023 09:56:55 08/31/19 24 Allergy Immunotherapy Injections completed SCOTTY RICE 100 [facility],[place] [address] [place] [address], [address], [place] [facility] [place] 08/31/2023 09:14:03 08/23/19 24 Allergy Immunotherapy Injections completed KEN CARDENAS RMA [address],[place] [address] [place] [address], [address], [place] [facility] [place] 08/23/2023 09:35:11 08/17/19 24 Allergy Immunotherapy Injections completed KEN CARDENAS RMA [address] [facility] [address],[place] [address] [place] [address], [address], [place] [facility] [place] 08/17/2023 10:13:24 08/10/19 24 Allergy Immunotherapy Injections completed KEN CARDENAS RMA [address],[place] [address] [place] [address], [address], [place] [facility] [place] 08/10/2023 11:14:06 08/03/19 24 Allergy Immunotherapy Injections completed JUAQUIN YAÑEZ RN [address],[place] [address], [address], [place] [facility] [place] 08/03/2023 10:25:33 07/27/19 24 Allergy Immunotherapy Injections completed KEN CARDENAS RMA [address] [facility] [address], [address], [facility] - [facility] 07/27/2023 10:39:49 07/21/19 24 Allergy Immunotherapy Injections completed [facility] 100 [facility] 100, [place], [address], [facility] 07/21/2023 10:29:54 Imaging Results None recorded. Procedure Notes None recorded. Medical Equipment None Reported. Allergies Allergen ID Allergen Name Allergen Category Reaction Reaction Severity Criticality Documentation Date Start Date Code Code System Note Provider Name and Address Organization Details Recorded Time 377934 oxycodone medicatio n Not available Not available Not available 07/19/2023 7804 RxNorm React ion: Dizzi ness, Abdom inal pain, Weakn ess; Not Available [facility] 4 01:20:52 002934 lactose Not available diarrhea Not available Not [...] mg tablet 09/08 completed Medicati on ID: [id number] B rand Name: johna m Send Method: E-Prescr ibed Sub s [...] Multi-Vit schaefer tablet active Medicati on ID: [id number] B rand Name: Daily Multi-Vi tamin Se [...] (7) tablet 09/08 completed Medicati on ID: [id number] B rand Name: Jenise Fe 03/26 () Sen d Method: E-Prescr ibed Sub s Allowed: subs OK Medic ationGen ericName : Jenise Fe 03/26 () Not Available Not Available Not Available Vitals Date Recorded Body height Body weight Provider Name and Address Organization Details Last Updated DateTime 04/23/2024 162.56 cm 55951.47 g Tod Quintanilla [place] - [facility] 04/23/2024 09:21:16 Social History None recorded. Functional Status None recorded. Mental Status None recorded. Family History Relationship Description Onset Age of this Age Resolved Age Notes LastModified by Organization Details LastModified Time Mother Asthma [email or web address] Not availab le 04/23/2024 09:21:21 Sister Asthma [email or web address] Not availab le 04/23/2024 09:21:21 Sister Complication of anesthesia [email or web address] Not available 09:21:21 Sister Allergy to food [email or web address] Not available 09:21:21 Medical History Condition Response Allergies/Hayfever Y Heart Problems N Anxiety N Tonsil Infections N Emphysema N Migraines N Thyroid Problems Y Glaucoma N Depression N COPD N Developmental Delay N Nasal or Sinus Problems Y Anemia Y Immune System Disorder N Anesthesia Complications N Heart Attack ([place]) N Other Skin Condition N Diabetes N [...] Diagnosis Note [id number] JOSE VELÁZQUEZ MD Allergy [address] [place] [address],[place] [address] [place] [address] 07/21/2023 10:01:06 07/22/2023 13:03:52 Perennial allergic rhinitis [id number] J30.89 [id number] JOSE VELÁZQUEZ MD Allergy [address] [place] [address] [address] [place] [address] 07/27/2023 10:17:14 07/27/2023 11:20:05 Perennial allergic rhinitis 295230274 J30.89 1806 JUAQUIN YAÑEZ RN Allergy [address] [place] [address] [address] [place] [address] 08/03/2023 10:24:55 08/03/2023 13:01:24 Perennial allergic rhinitis 836085791 J30.89 2837 [facility] Allergy [address] [place] [address] [address] [place] [address] 08/10/2023 10:49:51 08/10/2023 11:19:10 Perennial allergic rhinitis [id number] J30.89 3726 [facility] Allergy [address] [place] [address] [address] [place] [address] 08/17/2023 09:07:38 08/17/2023 11:14:32 Perennial allergic rhinitis [id number] J30.89 4459 [facility] All[facility] [address] [place] [address], [address] [place] [address] 08/23/2023 09:03:10 08/23/2023 13:26:57 Perennial allergic rhinitis 462646246 J30.89 5606 VALORIE LUCIO [facility] Allergy [address] [place] [address],[place] [address] [place] [address] 08/31/2023 08:49:58 08/31/2023 11:02:35 Perennial allergic rhinitis 582384317 J30.89 6153 JUAQUIN YAÑEZ RN Allergy [address] [place] [address], [address] [place] [address] 09/05/2023 08:46:12 09/05/2023 10:03:05 Perennial allergic rhinitis [id number] J30.89 7075 VALORIE LUCIO [facility] Allergy [address] [place] [address], [place] [address] 09/13/2023 08:41:30 09/13/2023 14:37:18 Perennial allergic rhinitis 334904615 J30.89 8018 JUAQUIN YAÑEZ RN Allergy [address] [place] [address], [place] [address] 09/20/2023 10:16:20 09/21/2023 13:05:24 Perennial allergic rhinitis 112813555 J30.89 9049 JUAQUIN YAÑEZ RN Allergy [address] [place] [address], [place] [address] 09/27/2023 09:14:35 09/27/2023 10:52:56 Perennial allergic rhinitis [id number] J30.89 [id number] [facility] Allergy [address] [place] [address], [place] [address] 10/04/2023 12:11:42 10/04/2023 12:14:07 Perennial allergic rhinitis [id number] J30.89 [id number] VALORIE LUCIO [facility] Allergy [address] [place] [address], [place] [address] 10/11/2023 09:43:29 10/11/2023 11:09:54 Perennial allergic rhinitis [id number] J30.89 [id number] JOSE VELÁZQUEZ MD [facility] [address] [place] [address] 10/19/2023 09:06:55 10/19/2023 10:05:09 Allergic rhinitis 81105503 J30.9 Doing well with immunother apy. EpiPen up-to-date . Abnormal a uditory perception 93389551 H93.291 Audio bilateral SNHL--stab le Subjective pulsatile tinnitus of right ear [id number] 458750 H93.A1 Previous MRA was negative. Deviated nasal septum 12 8154875 J34.2 mild Sensorineu ral hearing loss 06321373 H90.41 8-14-2024A udiologica l evaluation results: Right ear: {{Normal [...] Cou ld not maintain a hermetic seal}} [id number] JUAQUIN YAÑEZ RN Allergy [address] [place] [address] [address] [place] [address] 10/19/2023 10:26:27 10/19/2023 10:27:52 Perennial allergic rhinitis [id number] J30.89 [id number] KEN NGHIA, [facility] Allergy 100 [facility], it[address] 100 [place] [address] 10/27/2023 09:20:07 10/27/2023 13:21:33 Perennial allergic rhinitis 411597312 J30.89 [id number] JUAQUIN YAÑEZ RN Allergy [address] [place] [address] [place] [address] 11/01/2023 10:42:48 11/01/2023 10:44:36 Perennial allergic rhinitis 209532297 J30.89 [id number] JUAQUIN YAÑEZ RN Allergy [address] [place] [address],[place] [address] [place] [address] 11/09/2023 11:26:12 11/09/2023 11:29:30 Perennial allergic rhinitis 662239589 J30.89 [id number] [facility] Allergy [address] [place] [address],[place] [address] [place] [address] 11/17/2023 09:40:52 11/17/2023 11:43:31 Perennial allergic rhinitis 070442984 J30.89 [id number] JUAQUIN YAÑEZ RN Allergy [address] [place] [address] [address] [place] [address] 11/23/2023 10:27:55 11/23/2023 10:32:23 Perennial allergic rhinitis 510255919 J30.89 [id number] JUAQUIN YAÑEZ RN Allergy [address] [place] [address] [address] [place] [address] 12/14/2023 11:23:54 12/14/2023 11:25:34 Perennial allergic rhinitis 165603821 J30.89 [id number] [facility] Allergy [address] [place] [address],[place] [address] [place] [address] 12/21/2023 11:30:12 12/21/2023 11:31:30 Perennial allergic rhinitis [id number] J30.89 [id number] VALORIE LUCIO [facility] Allergy [address] [place] [address], [address] [place] [address] 12/29/2023 09:38:10 12/29/2023 09:40:16 Perennial allergic rhinitis [id number] J30.89 [id number] JUAQUIN YAÑEZ RN Allergy [address] [place] [address] [address] [place] [address] 01/03/2024 11:06:53 01/03/2024 11:08:17 Perennial allergic rhinitis [id number] J30.89 [id number] VALORIE LUCIO [facility] Allergy [address] [place] [address] [address] [place] [address] 01/10/2024 09:41:40 01/10/2024 09:42:52 Perennial allergic rhinitis [id number] J30.89 [id number] VALORIE LUCIO, [facility] Allergy [address] [place] [address] [address] [place] [address] 01/19/2024 13:16:02 01/19/2024 13:20:09 Perennial allergic rhinitis [id number] J30.89 [id number] JUAQUIN YAÑEZ RN Allergy [address] [place] [address] [address] [place] [address] 01/24/2024 10:49:50 01/24/2024 10:52:32 Perennial allergic rhinitis [id number] J30.89 [id number] VALORIE LUCIO, [facility] Allergy [address] [place] [address] [address] [place] [address] 02/03/2024 09:25:49 02/03/2024 09:35:31 Perennial allergic rhinitis [id number] J30.89 07883 JUAQUIN YAÑEZ RN Allergy [address] [place] [address] [address] [place] [address] 02/07/2024 10:13:39 02/07/2024 10:14:50 Perennial allergic rhinitis [id number] J30.89 [id number] [facility] Allergy [address] [place] [address] [address] [place] [address] 02/14/2024 11:05:15 02/14/2024 11:06:25 Perennial allergic rhinitis [id number] J30.89 [id number] JUAQUIN YAÑEZ RN Allergy [address] [place] [address] [address] [place] [address] 02/23/2024 10:00:14 02/23/2024 10:01:52 Perennial allergic rhinitis [id number] J30.89 [id number] JUAQUIN YAÑEZ RN Allergy [address] [place] [address] [address] [place] [address] 03/01/2024 09:37:35 03/01/2024 09:38:44 Perennial allergic rhinitis [id number] J30.89 [id number] [facility] Allergy [address] [place] [address] [place] [address] 03/08/2024 12:13:01 03/08/2024 12:14:59 Perennial allergic rhinitis [id number] J30.89 [id number] [facility] NGHIA, [facility] Allergy 100 [facility],[place] [address] [place], [place] [address] 03/13/2024 11:57:35 03/13/2024 11:59:25 Perennial allergic rhinitis [id number] J30.89 [id number] [facility] Allergy [address] [place] [address], [address] [facility] [place] [address] 03/20/2024 09:19:50 03/20/2024 09:23:46 Perennial allergic rhinitis [id number] J30.89 [id number] JUAQUIN YAÑEZ RN Allergy [address] [place] [address] [address] 100 [facility] [place] [address] 03/28/2024 10:20:37 03/28/2024 10:48:37 Perennial allergic rhinitis [id number] J30.89 [id number] [facility] Allergy [address] [place] [address], [address] [facility] [place] [address] 04/03/2024 10:19:02 04/03/2024 10:20:47 Perennial allergic rhinitis [id number] J30.89 [id number] JOSE VELÁZQUEZ MD [facility] - [facility] 100 [facility] [address] 04/23/2024 09:16:11 04/23/2024 09:38:20 Allergic rhinitis 22993479 J30.89 Doing well with immunother apy. New Epipen prescribed [id number] VALORIE LUCIO, [facility] Allergy [address] [place] [address],[address] [place] [address] 04/23/2024 09:58:15 04/23/2024 09:59:52 Perennial allergic rhinitis [id number] J30.89 [id number] [facility] Allergy 100 [facility],[address] [place] [address] 05/01/2024 10:16:09 05/01/2024 10:21:59 Perennial allergic rhinitis [id number] J30.89 Health Concerns Section Related Observation LastModified by Organization Detai ls LastModified Time None Recorded Concern Status LastModified by Organization Details LastModified Time None Recorded Advance Directives Directive None Recorded Payers Encounter Date Sequence Insurance Name Policy Number Policy Roche Covered Member ID Roche Member ID Guarantor Name 03/28/2024 1 [place] [facility] ([facility] [id number] Shelia Haya [id number] Shelia Haya 04/03/2024 1 [place] HMO [facility] ([facility] [id number] Shelia Haya [id number] Shelia Haya 04/23/2024 1 [place] [facility] ([facility]) [id number] Shelia Haya [id number] Shelia Haya 04/23/2024 1 [place] [facility] ([facility] [id number] Shelia Haya [id number] Shelia Haya 05/01/2024 1 [place] [employer] [place] ([facility]) [id number] Shelia Haya [id number] Shelia Haya Notes Date Note Type [...] showed gastritis --omeprazole now JOSE DIXON MD [address] [place] [address], [address], [facility] - [facility] 04/23/2024 09:37:17 OBGyn Episode No OBEpisode recorded.
--- OUTSIDE RECORDS SUMMARY | 2024-05-01 15:19 | XMS_ITS | Continuity of Care Document ---
Author Organization [place] - [facility], Allergy Address [address] [address] Care Team Providers Care Long Lines Operator Name Role Phone TOD JENKINS Primary Care Provider [phone] Assessment Encounter Date Assessment Date Assessment LastModified [...] Aware of Vial Test Notes:? ? ? [email or web address] Not available 04/23/2024 09:59:27 Plan of Treatment Reminders Order Date Submit Date Provider Last Modified By Organization Details Last Modified Time Details Appointments Allergy Shot 2024 10:00A M [facility] Not available Not available Not available [facility] hed- Allergy f-up 6mon 2024 10:30A M JOSE [...] Organization Details Recorded Time Achalasia of esophagus 10868781 Active 2022 Achalasia NOS; Note: Date Diagnosed : 06/23/2022 2:49 PM (K22.0) Not Available [facility] 08/02/202 4 03:10:05 Respirato ry finding 684378914 Active 2022 Feeling of foreign body in throat; Note: Date Diagnosed : 06/23/2022 2:49 PM (R09.89) Not Available [facility] 4 03:10:05 Cardiovas cular finding 099835391 Active 2022 Feeling of foreign body in throat; Note: Date Diagnosed : 06/23/2022 2:49 PM (R09.89) Not Available [facility] 4 03:10:05 Posterior rhinorrhe a 12182607 Active 2022 Postnasal drip; Note: Date Diagnosed : 06/23/2022 2:49 PM (R09.82) Not Available [facility] 4 03:10:04 Allergic rhinitis 21515537 Active 2023 Allergic rhinitis: Due to other [...] Note: Date Diagnosed : 10/16/19 Not Available [facility] 4 01:25:32 Deviated nasal septum 450350995 Active 2022 Deviated nasal septum; Note: Date Diagnosed : 06/23/2022 2:49 PM (J34.2) Not Available [facility] 4 03:10:04 Perennial allergic rhinitis 837665999 Active [address], [address] , [facility] - [facility] 4 10:29:26 Snoring 24698412 Active 2023 Snoring; Note: Date Diagnosed : 04/04/2023 8:51 AM (R06.83) Not Available [facility] 4 03:10:03 Obesity 773382922 Active 2023 Other obesity; Note: Date Diagnosed : 04/04/2023 8:51 AM (E66.8) Not Available [facility] 4 03:10:04 Tinnitus of vascular origin 858202253 Active 2023 Pulsatile tinnitus, right ear; Note: Date Diagnosed : 04/04/2023 8:49 AM (H93.A1) Not Available [facility] 4 03:10:04 Sensorine ural hearing loss 05641389 Active 2023 Sensorine ural hearing loss, unilatera l, right ear, with unrestric jaswant hearing on the contralat eral side; Note: Date Diagnosed : 04/04/2023 9:26 AM (H90.41) Not Available [facility] 4 03:10:05 Abnormal auditory perceptio n 35406217 Active 2023 JOSE VELÁZQUEZ MD 100 [facility], [place], [address] , [place] [facility] 4 21:49:47 Subjectiv e pulsatile tinnitus of right ear 89525868528 07138 Active 2023 JOSE VELÁZQUEZ MD 100 [facility], [place], [address] , [place] [facility] 4 21:53:02 Abnormal auditory perceptio n 39870909 Active 2023 JOSE VELÁZQUEZ MD 100 [facility],[address], [place], [place], [address] , [place] [facility] 4 09:14:23 Non-aller gic rhinitis 70133924049 1 Active 2023 Oh hernández [place] - [facility] 4 12:14:47 Seasonal allergic rhinitis 968433391 Active 2023 Oh hernández [place] - [facility] 4 12:14:47 Chronic sinusitis 28764702 Active 2023 Oh hernández [place] - [facility] 4 12:16:47 Polyp of nasal cavity 279265095 Active 2023 Oh hernández [place] - [facility] 4 12:17:03 Polypoid sinus degenerat ion 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 Procedures Surgical History Date Name Laterality Status Provider Name and Address Organization Details Recorded Time 05/01/19 Allergy Immunotherapy Injections completed KEN AGRAWAL, [facility] [address], [place], [address], [place] [facility] 05/01/2024 10:21:08 02/17/20 25 Allergy Immunotherapy Injections completed VALORIE LUCIO, RMA [address], [place], [address], [place] [facility] 04/23/2024 09:59:03 04/03/19 25 Allergy Immunotherapy Injections completed KEN CARDENAS, RMA [address], [place], [address], [place] [facility] 04/03/2024 10:20:26 03/28/19 25 Allergy Immunotherapy Injections completed JUAQUIN YAÑEZ RN [address], [place], [address], [place] [facility] 03/28/2024 10:48:14 03/20/19 25 Allergy Immunotherapy Injections completed KEN CARDENAS, RMA [address], [place], [address], [place] [facility] 03/20/2024 09:23:24 03/13/19 25 Allergy Immunotherapy Injections completed KEN CARDENAS, RMA [address], [place], [address], [place] [facility] 03/13/2024 11:58:51 03/08/19 25 Allergy Immunotherapy Injections completed KEN CARDENAS, RMA [address],[place] [address], [place], [address], [place] [facility] 03/08/2024 12:13:50 03/01/20 24 Allergy Immunotherapy Injections completed JUAQUIN YAÑEZ RN 100 [facility],[address], [place], [address], [place] [facility] 03/01/2024 09:38:10 02/23/20 24 Allergy Immunotherapy Injections completed JUAQUIN YAÑEZ RN 100 [facility],[address], [place], [address], [place] [facility] 02/23/2024 10:01:24 02/14/20 24 Allergy Immunotherapy Injections completed KEN CARDENAS, RMA [address], [place], [address], [place] [facility] 02/14/2024 11:05:56 02/07/20 24 Allergy Immunotherapy Injections completed JUAQUIN YAÑEZ RN [address], [place], [address], [place] [facility] 02/07/2024 10:14:23 02/03/20 24 Allergy Immunotherapy Injections completed SCOTTY RICE [address], [place], [address], [place] [facility] 02/03/2024 09:34:55 01/24/20 24 Allergy Immunotherapy Injections completed JUAQUIN YAÑEZ RN 100 [facility],[address], [place], [address], [place] [facility] 01/24/2024 10:50:50 01/19/20 24 Allergy Immunotherapy Injections completed SCOTTY RICE 100 [facility],[address], [place], [address], [place] [facility] 01/19/2024 13:18:23 01/10/20 24 Allergy Immunotherapy Injections completed SCOTTY RICE 100 [facility] [address] [facility], [place], [address], [place] [facility] 01/10/2024 09:42:22 01/03/20 24 Allergy Immunotherapy Injections completed JUAQUIN YAÑEZ RN 100 [facility],[address] [place] [address], [address], [place] [facility] 01/03/2024 11:08:00 12/29/19 24 Allergy Immunotherapy Injections completed SCOTTY RICE 100 [facility],[address] [place] [address], [address], [place] [facility] 12/29/2023 09:38:54 12/21/19 24 Allergy Immunotherapy Injections completed SCOTTY GUTHRIE [address], [place], [address], [place] [facility] 12/21/2023 11:30:52 12/14/19 24 Allergy Immunotherapy Injections completed JUAQUIN YAÑEZ RN 100 [facility],[address], [place], [address], [place] [facility] 12/14/2023 11:25:12 11/23/19 24 Allergy Immunotherapy Injections completed KEN CARDENAS, RMA 100 [facility] [address] [facility], [place], [address], [place] [facility] 11/23/2023 10:31:13 11/17/19 24 Allergy Immunotherapy Injections completed KEN CARDENAS, RMA 100 [facility],[address] [place] [address], [address], [place] [facility] 11/17/2023 09:42:16 11/09/19 24 Allergy Immunotherapy Injections completed JUAQUIN YAÑEZ RN 100 [facility],[address] [place] [address], [address], [place] [facility] 11/09/2023 11:29:05 11/01/19 24 Allergy Immunotherapy Injections completed JUAQUIN YAÑEZ RN 100 [facility],[address] [place] [address], [address], [place] [facility] 11/01/2023 10:43:38 10/27/19 24 Allergy Immunotherapy Injections completed [facility]DENAS [facility] 100 [facility],[address] [place] [address], [address], [place] [facility] 10/27/2023 11:59:30 10/19/19 24 Allergy Immunotherapy Injections completed JUAQUIN YAÑEZ RN 100 [facility],[address] [place] [address], [address], [place] [facility] 10/19/2023 10:27:27 10/19/19 24 Air & Speech Audio with Tymps (53258, 94743 & 44342) completed DARRIUS OSMAN MA, CCC-A 100 [facility],[address] [place] [address], [address], [place] [facility] 10/19/2023 09:45:15 10/11/19 24 Allergy Immunotherapy Injections completed SCOTTY RICE 100 [facility],[address] [place] [address], [address], [facility] - [facility] 10/11/2023 09:44:13 10/04/19 24 Allergy Immunotherapy Injections completed KEN CARDENAS A 100 [facility],[address] [place] [address], [address], [place] [facility] 10/04/2023 12:12:37 09/27/19 24 Allergy Immunotherapy Injections completed JUAQUIN YAÑEZ RN [address], [place], [address], [place] [facility] 09/27/2023 10:51:29 09/20/19 24 Allergy Immunotherapy Injections completed JUAQUIN YAÑEZ RN 100 [facility],[address], [place], [address], [place] [facility] 09/20/2023 10:20:29 09/13/19 24 Allergy Immunotherapy Injections completed SCOTTY RICE 100 [facility],[address] [place] [address], [address], [place] [facility] 09/13/2023 12:56:00 09/05/19 24 Allergy Immunotherapy Injections completed JUAQUIN YAÑEZ RN 100 [facility],[address] [place] [address], [address], [place] [facility] 09/05/2023 09:56:55 08/31/19 24 Allergy Immunotherapy Injections completed SCOTTY RICE 100 [facility],[address] [place] [address], [address], [place] [facility] 08/31/2023 09:14:03 08/23/19 24 Allergy Immunotherapy Injections completed KEN CARDENAS RMA [address], [place], [address], [place] [facility] 08/23/2023 09:35:11 08/17/19 24 Allergy Immunotherapy Injections completed KEN CARDENAS RMA [address], [place], [address], [place] [facility] 08/17/2023 10:13:24 08/10/19 24 Allergy Immunotherapy Injections completed KEN CARDENAS RMA [address], [place], [address], [place] [facility] 08/10/2023 11:14:06 08/03/19 24 Allergy Immunotherapy Injections completed JUAQUIN YAÑEZ RN 100 [facility],[address], [address], [facility] - [facility] 08/03/2023 10:25:33 07/27/19 24 Allergy Immunotherapy Injections completed [facility] [address], [address], [facility] 07/27/2023 10:39:49 07/21/19 24 Allergy Immunotherapy Injections completed [facility] [address], [address], [facility] - [facility] 07/21/2023 10:29:54 Imaging Results None recorded. Procedure Notes None recorded. Medical Equipment None Reported. Allergies Allergen ID Allergen Name Allergen Category Reaction Reaction Severity Criticality Documentation Date Start Date Code Code System Note Provider Name and Address Organization Details Recorded Time 066054 oxycodone medicatio n Not available Not available Not available 07/19/2023 7804 RxNorm React ion: Dizzi ness, Abdom inal pain, Weakn ess; Not Available [facility] 4 01:20:52 911510 lactose Not available diarrhea Not available Not available 07/19/2023 6211 RxNorm React ion: Diarr hea; Not Available [facility] 4 01:20:53 Medications Name Sig Start Date [...] mg tablet 09/08 completed Medicati on ID: [id number] B rand Name: noemíoxica sergio Send Method: E-Prescr ibed Sub s [...] Multi-Vit schaefer tablet active Medicati on ID: [id number] B rand Name: Daily Multi-Vi tamin Se [...] (7) tablet 09/08 completed Medicati on ID: [id number] B rand Name: Jenise Wright 03/26 () Sen d Method: E-Prescr ibed Sub s Allowed: subs OK Medic ationGen ericName : Jenise 03/26 () Not Available Not Available Not Available Vitals Date Recorded Body height Body weight Provider Name and Address Organization Details Last Updated DateTime 04/23/2024 162.56 cm 25325.47 g Tod Quintanilla [place] - [facility] 04/23/2024 09:21:16 Social History None recorded. Functional Status None recorded. Mental Status None recorded. Family History Relationship Description Onset Age of this Age Resolved Age Notes LastModified by Organization Details LastModified Time Mother Asthma [email or web address] Not availab le 04/23/2024 09:21:21 Sister Asthma [email or web address] Not availab le 04/23/2024 09:21:21 Sister Complication of anesthesia [email or web address] Not available 09:21:21 Sister Allergy to food [email or web address] Not available 09:21:21 Medical History Condition Response Allergies/Hayfever Y Heart Problems N Anxiety N Tonsil Infections N Emphysema N Migraines N Thyroid Problems Y Depression N COPD N Developmental Delay N Glaucoma N Nasal or Sinus Problems Y Anemia Y Immune System Disorder N Anesthesia Complications N Heart Attack ([place]) N Other Skin Condition N Diabetes N [...] SNOMED-CT Code Diagnosis ICD10 Code Diagnosis Note [id number] JUAQUIN YAÑEZ RN Allergy [address] [place] [address] 03/28/2024 10:20:37 03/28/2024 10:48:37 Perennial allergic rhinitis [id number] J30.89 72294 KEN AGRAWAL, [facility] Allergy 100 [facility] 100 [place] [address] 04/03/2024 10:19:02 04/03/2024 10:20:47 Perennial allergic rhinitis 672987642 J30.89 44119 JOSE VELÁZQUEZ MD [facility] 100 [place] [address] 04/23/2024 09:16:11 04/23/2024 09:38:20 Allergic rhinitis 91899503 J30.89 Doing well with immunother apy. New Epipen prescribed 48823 VALORIE LUCIO [facility] Allergy [address] [place] [address] 100 [place] [address] 04/23/2024 09:58:15 04/23/2024 09:59:52 Perennial allergic rhinitis 058190229 J30.89 Health Concerns Section Related Observation LastModified by Organization Detai ls LastModified Time None Recorded Concern Status LastModified by Organization Details LastModified Time None Recorded Payers Encounter Date Sequence Insurance Name Policy Number Policy Roche Covered Member ID Roche Member ID Guarantor Name 04/23/2024 1 [place] [facility] ([facility] [id number] Shelia Fitzgerald [id number] Shelia Fitzgerald Notes Date Note Type [...] showed gastritis --omeprazole now JOSE DIXON MD [address] [place] [address], [address], [place] [facility] 04/23/2024 09:37:17 OBGyn Episode No OBEpisode recorded.
--- OUTSIDE RECORDS SUMMARY | 2024-05-01 15:19 | XMS_ITS | Encounter Summary ---
Author Organization [employer] Address [address] [place] [address] Care Team Providers Care Foot Press Operator Name Role Phone Bonnie Ahn MD Primary Care Provider [phone] Reason for Referral * Consultation (Routine) - Pending Review Specialty Diagnoses / Procedures Referred By Mehrdad leung Referred To Contact Plastic Surgery Diagnoses Symptomatic abdominal panniculus Radha West MD [address] [place] [address] Phone: tel: fax: Jenna Kwok MD [address] [place] [address] Phone: tel: fax: Referral ID Status Reason Start Date Expiration Date Visits Requested Visits Authorized [id number] Pending Review Specialty Services Required 04/03/2024 04/03/2025 1 1 Reason for Visit * Reason Comments Follow-up 3 month follow up Encounter Details Date Type Department Care Team (Late st Contact Info) Description 04/03/2024 9:00 AM EST Office Visit Bariatric Surgery - [address] [address] Radha West MD [address] [address] Obesity, Class I, BMI 30-34.9 (Primary Dx); [...] AM EDT Office Visit Bariatric Surgery - [address] [address] Radha West MD 175 [facility] [address] [place] [address] Scheduled Referrals Name Type Priority Associated Diagnoses [...] documented as of this encounter Care Teams Foot Press Operator Relationship Specialty Start Date End Date Bonnie Ahn MD [address] [place] [address] , [address] [facility] [place] PCP - General Internal Medicine 03/29/19 documented as of this encounter
== END 2024-05-01 13:17 | disposition home or self-care (01) ==
PROVIDERS: PCP Internal Medicine; Visit Provider Orthopaedic Surgery
DX: M17.12 Unilateral primary osteoarthritis, left knee (principal)
CPT/HCPCS: 99203

== ENCOUNTER 2024-06-13 12:38 | Outpatient (AMB) | payer BC, SELFPAY ==
--- NOTE | 2024-06-13 12:39 | A.OFFVIS_ITS ---
Vital Signs 06/13/24 12:42 Height 5 ft 4 in Weight 191 lb BMI 32.8 Intake Visit Reasons: OV-LT knee pain f/u Intake Note: Shelia is a 54 year old female who presents with complaints of progressively worsening left knee pain and giving way. The patient states that she underwent left knee arthroscopic surgery in 2007 while living in [place]. Gel injection denied by her insurance company. The patient does not wish for a cortisone injection. She wishes to hold off on total knee replacement surgery for as long as possible. Allergies lactose Allergy (Intermediate, Verified 06/13/24 12:42) diarrhea oxycodone Adverse Reaction (Mild, Verified 06/13/24 12:42) Vomiting, stomach pain Medication List - Last Reconciled 06/13/24 by Crispin Irwin MD apixaban (Eliquis) 2.5 mg PO BID betamethasone dipropionate 0.05% 1 appl topical BID PRN 2 weeks bupropion HCl XL 150 mg PO DAILY cyclobenzaprine 10 mg PO TID PRN 30 days epinephrine (EpiPen) 0.3 mg IM Q4H PRN ferrous sulfate (Feosol) 325 mg PO DAILY levothyroxine 25 mcg PO QAM 90 days multivitamin 1 tab PO DAILY omeprazole 20 mg PO BID topiramate 100 mg PO DAILY tramadol 50 mg PO DAILY PRN 30 days PFSH Medical History (Updated 06/12/24 @ 08:58 by Samaria Brito RN) Deep vein thrombosis (07/28/22) Obesity (BMI 35.0-39.9 without comorbidity) Class 1 obesity with body mass index (BMI) of 34.0 to 34.9 in adult Thrombocytopenia Pancytopenia Osteoarthritis of left knee Hypovitaminosis D Toenail deformity Left shoulder pain Constipation by delayed colonic transit Hypothyroidism Surgical History (Updated 06/12/24 @ 08:59 by Samaria Brito RN) History of esophagogastroduodenoscopy (EGD) H/O colonoscopy H/O gastric sleeve Venous insufficiency of left leg History of surgery History of cholecystectomy History of arthroscopy of left knee History of section Family History Father Diabetes CVD (cardiovascular disease) Myocardial infarction Mother CVD (cardiovascular disease) Hypertension Maternal Grandmother No problems noted. Maternal Grandfather Prostate cancer Family/Other Mental health disorder Social History Household Members: Spouse and Children Housing: House Are you a primary patient centered care specialist to a significant other at home: No Do you presently have visiting nurse or other home services: No Alcohol intake: never Comment: S3 Patient Tobacco Use Status: Never used Tobacco e-Cigarette/Vaping Use: Never Used Second Hand Smoke Exposure: No service: No Current occupational status: employed Current occupational exposures/hazards: No Cognitive needs: No Hearing needs: No Vision needs: Yes Physical Exam Vital Signs: BMI result Body Mass Index 32.8 Const Other: Well-nourished well-developed very friendly female awake alert and oriented x3 in no acute distress Extrem Other: Left knee examination shows pain with range of motion, crepitus with range of motion, no instability Results Reviewed Results Reviewed: X-rays of the patient's left knee taken previously show joint space narrowing, subchondral sclerosis, no acute bony abnormalities Assessment & Plan Assessment & Plan (1) Osteoarthritis of left knee: Code(s): M17.12 - Unilateral primary osteoarthritis, left knee Category: Medical Plan Ms. Fitzgerald presents with progressively worsening left knee pain due to osteoarthritis. I had a lengthy discussion with the patient regarding the treatment options. The patient wishes to hold off on surgery if at all possible. Thus, I will arrange for her to have a consultation with Dr. Iverson from our pain management department. The patient may be a candidate for a nerve stimulation procedure. She will follow up as instructed. Feel free to call me at any time should questions regarding her orthopedic management arise. I spent 20 minutes in reviewing the patient's records and imaging studies, seeing the patient and documenting in the medical record. Orders: Referrals Pain Management Referral M17.12 - Unilateral primary osteoarthritis, left knee Coding Level of Care Code Est Pt Level 3 (78047) Complex EM visit Add On G2211 Diagnoses Osteoarthritis of left knee M17.12
[2024-06-13 12:42] VITALS: BMI 32.8
--- OUTSIDE RECORDS SUMMARY | 2024-06-13 14:36 | XMS_ITS | Continuity of Care Document ---
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 ? ? Increase in asthma symptoms No Asthma Hx If yes, inhaler use: Reaction to last injections: No If yes: ? ? ? Allergy Symptoms: Other: ? ? ? Missed: Dose Aware of Vial Test Notes:? ? ? [email or web address] Not available 06/13/2024 10:59:27 Plan of Treatment Reminders Order Date Submit Date Provider Last Modified By Organization Details Last Modified Time Details Appointments Allergy Shot 2024 01:10P [facility] Not available Not available Not available [facility] hed- Allergy f-up 6mon 2024 10:30A [...] Organization Details Recorded Time Achalasia of esophagus 36228394 Active 2022 Achalasia NOS; Note: Date Diagnosed : 06/23/2022 2:49 PM (K22.0) Not Available [facility] 08/02/202 4 03:10:05 Respirato ry finding 623590255 Active 2022 Feeling of foreign body in throat; Note: Date Diagnosed : 06/23/2022 2:49 PM (R09.89) Not Available [facility] 4 03:10:05 Cardiovas cular finding 643418658 Active 2022 Feeling of foreign body in throat; Note: Date Diagnosed : 06/23/2022 2:49 PM (R09.89) Not Available [facility] 4 03:10:05 Posterior rhinorrhe a 70088894 Active 2022 Postnasal drip; Note: Date Diagnosed : 06/23/2022 2:49 PM (R09.82) Not Available [facility] 4 03:10:04 Allergic rhinitis 03610515 Active 2023 Allergic rhinitis: Due to other [...] Diagnosed : 10/16/19 Not Available [facility] 4 01:25:32 Deviated nasal septum 028109656 Active 2022 Deviated nasal septum; Note: Date Diagnosed : 06/23/2022 2:49 PM (J34.2) Not Available [facility] 4 03:10:04 Perennial allergic rhinitis 476272032 Active [address], [address] , [facility] - [facility] 4 10:29:26 Snoring 54502388 Active 2023 Snoring; Note: Date Diagnosed : 04/04/2023 8:51 AM (R06.83) Not Available [facility] 4 03:10:03 Obesity 375726733 Active 2023 Other obesity; Note: Date Diagnosed : 04/04/2023 8:51 AM (E66.8) Not Available [facility] 4 03:10:04 Tinnitus of vascular origin 551121827 Active 2023 Pulsatile tinnitus, right ear; Note: Date Diagnosed : 04/04/2023 8:49 AM (H93.A1) Not Available [facility] 4 03:10:04 Sensorine ural hearing loss 00105373 Active 2023 Sensorine ural hearing loss, unilatera l, right ear, with unrestric jaswant hearing on the contralat eral side; Note: Date Diagnosed : 04/04/2023 9:26 AM (H90.41) Not Available [facility] 4 03:10:05 Abnormal auditory perceptio n 04450624 Active 2023 JOSE VELÁZQUEZ MD 100 [facility],[place] [address], [place], [address] , [facility] 4 21:49:47 Subjectiv e pulsatile tinnitus of right ear [id number] 67654 Active 2023 JOSE VELÁZQUEZ MD [address] [facility],[place] [address], [place], [place], [address] , [place] [facility] 4 21:53:02 Abnormal auditory perceptio n 33766675 Active 2023 JOSE VELÁZQUEZ MD [address] [facility],[place] [address], [place], [place], [address] , [place] [facility] 4 09:14:23 Non-aller gic rhinitis 66689965718 1 Active 2023 Oh hernández [place] - [facility] 4 12:14:47 Seasonal allergic rhinitis 277375571 Active 2023 Oh hernández [place] - [facility] [facility] 4 12:14:47 Chronic sinusitis 41027826 Active 2023 Oh hernández [place] - [facility] [facility] 4 12:16:47 Polyp of nasal cavity 326449943 Active 2023 Oh hernández [place] - [facility] 4 12:17:03 Polypoid sinus degenerat ion 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 Procedures Surgical History Date Name Laterality Status Provider Name and Address Organization Details Recorded Time 06/14/19 25 Allergy Immunotherapy Injections completed JUAQUIN YAÑEZ RN [address] [facility],[place] [address], [place], [address], [place] [facility] 06/13/2024 10:59:19 05/30/19 25 Allergy Immunotherapy Injections completed JUAQUIN YAÑEZ RN [address], [place], [address], [place] [facility] 05/29/2024 10:31:20 05/23/19 25 Allergy Immunotherapy Injections completed Isa Zaragoza [place] - [facility] 05/22/2024 09:24:53 05/16/19 25 Allergy Immunotherapy Injections completed VALORIE LUCIO RMA [address], [place], [address], [place] [facility] 05/15/2024 12:04:32 05/09/19 25 Allergy Immunotherapy Injections completed KEN CARDENAS, RMA [address], [place], [address], [place] [facility] 05/08/2024 09:54:06 05/01/19 25 Allergy Immunotherapy Injections completed KEN AGRAWALC, RMA [address], [place], [address], [place] [facility] 05/01/2024 10:21:08 04/23/19 25 Allergy Immunotherapy Injections completed VALORIE LUCIO RMA [address], [place], [address], [place] [facility] 04/23/2024 09:59:03 04/03/19 25 Allergy Immunotherapy Injections completed KEN CARDENAS, RMA [address], [place], [address], [place] [facility] 04/03/2024 10:20:26 03/28/19 25 Allergy Immunotherapy Injections completed JUAQUIN YAÑEZ RN [address], [place], [address], [place] [facility] 03/28/2024 10:48:14 03/20/19 25 Allergy Immunotherapy Injections completed KEN CARDENAS, RMA [address], [place], [address], [place] [facility] 03/20/2024 09:23:24 03/13/19 25 Allergy Immunotherapy Injections completed KEN AGRAWALC, RMA [address], [place], [address], [place] [facility] 03/13/2024 11:58:51 03/08/19 25 Allergy Immunotherapy Injections completed SCOTTY GUTHRIE [address] [place] [address], [address], [place] [facility] 03/08/2024 12:13:50 03/01/20 24 Allergy Immunotherapy Injections completed JUAQUIN YAÑEZ RN [address] [place] [address], [address], [place] [facility] 03/01/2024 09:38:10 02/23/20 24 Allergy Immunotherapy Injections completed JUAQUIN YAÑEZ RN [address] [facility] [place],[address] [place] [address], [address], [place] [facility] 02/23/2024 10:01:24 02/14/20 24 Allergy Immunotherapy Injections completed KEN CARDENAS [place] [address] [place] [address], [address], [place] [facility] 02/14/2024 11:05:56 02/07/20 24 Allergy Immunotherapy Injections completed JUAQUIN YAÑEZ RN [address] [facility] [place],[address] [place] [address], [address], [place] [facility] 02/07/2024 10:14:23 02/03/20 24 Allergy Immunotherapy Injections completed SCOTTY RICE [address] [place] [address], [address], [place] [facility] 02/03/2024 09:34:55 01/24/20 24 Allergy Immunotherapy Injections completed JUAQUIN YAÑEZ RN [address] [place] [address], [address], [place] [facility] 01/24/2024 10:50:50 01/19/20 24 Allergy Immunotherapy Injections completed SCOTTY RICE [address] [place] [address], [address], [place] [facility] 01/19/2024 13:18:23 01/10/20 24 Allergy Immunotherapy Injections completed SCOTTY RICE [address], [place], [address], [place] [facility] 01/10/2024 09:42:22 01/03/20 24 Allergy Immunotherapy Injections completed JUAQUIN YAÑEZ RN [address], [place], [address], [place] [facility] 01/03/2024 11:08:00 12/29/19 24 Allergy Immunotherapy Injections completed SCOTTY RICE [address], [place], [address], [place] [facility] 12/29/2023 09:38:54 12/21/19 24 Allergy Immunotherapy Injections completed SCOTTY GUTHRIE [address], [place], [address], [place] [facility] 12/21/2023 11:30:52 12/14/19 24 Allergy Immunotherapy Injections completed JUAQUIN YAÑEZ RN [address] [place] [address], [address], [place] [facility] 12/14/2023 11:25:12 11/23/19 24 Allergy Immunotherapy Injections completed KEN CARDENAS RMKendell [address] [place] [address], [address], [place] [facility] 11/23/2023 10:31:13 11/17/19 24 Allergy Immunotherapy Injections completed KEN CARDENAS RMA [address], [place], [address], [place] [facility] 11/17/2023 09:42:16 11/09/19 24 Allergy Immunotherapy Injections completed JUAQUIN YAÑEZ RN [address], [place], [address], [place] [facility] 11/09/2023 11:29:05 11/01/19 24 Allergy Immunotherapy Injections completed JUAQUIN YAÑEZ RN [address], [place], [address], [place] [facility] 11/01/2023 10:43:38 10/27/19 24 Allergy Immunotherapy Injections completed KEN CARDENAS RMA [address], [place], [address], [place] [facility] 10/27/2023 11:59:30 10/19/19 24 Allergy Immunotherapy Injections completed JUAQUIN YAÑEZ RN 100 [facility],[address], [address], [place] [facility] 10/19/2023 10:27:27 10/19/19 24 Air & Speech Audio with Tymps (28350, 24445 & 21639) completed DARRIUS OSMAN MA, CCC-A 100 [facility],[address], [address], [place] [facility] 10/19/2023 09:45:15 10/11/19 24 Allergy Immunotherapy Injections completed VALORIE LUCIO [facility] 100 [facility],[address], [address], [place] [facility] 10/11/2023 09:44:13 10/04/19 24 Allergy Immunotherapy Injections completed KEN CARDENAS, [facility] 100 [facility],[address], [address], [place] [facility] 10/04/2023 12:12:37 09/27/19 24 Allergy Immunotherapy Injections completed JUAQUIN YAÑEZ RN 100 [facility],[address], [address], [place] [facility] 09/27/2023 10:51:29 09/20/19 24 Allergy Immunotherapy Injections completed JUAQUIN YAÑEZ RN 100 [facility],[address], [address], [place] [facility] 09/20/2023 10:20:29 09/13/19 24 Allergy Immunotherapy Injections completed VALORIE LUCIO [place] [address] [place] [address],[address], [address], [place] [facility] 09/13/2023 12:56:00 09/05/19 24 Allergy Immunotherapy Injections completed JUAQUIN YAÑEZ RN 100 [facility],[address], [address], [place] [facility] 09/05/2023 09:56:55 08/31/19 24 Allergy Immunotherapy Injections completed VALORIE LUCIO, RMA [address], [place], [address], [facility] - [facility] 08/31/2023 09:14:03 08/23/19 24 Allergy Immunotherapy Injections completed KEN MAGDALENOLEANAC, RMA [address], [place], [address], [facility] - [facility] 08/23/2023 09:35:11 08/17/19 24 Allergy Immunotherapy Injections completed KEN KORZEC, RMA [address], [place], [address], [facility] - [facility] 08/17/2023 10:13:24 08/10/19 24 Allergy Immunotherapy Injections completed KEN MAGDALENOLEANAC, RMA [address], [place], [address], [facility] - [facility] 08/10/2023 11:14:06 08/03/19 24 Allergy Immunotherapy Injections completed JUAQUIN YAÑEZ RN [address] [facility] [place],[address] [place] [address], [address], [facility] - [facility] 08/03/2023 10:25:33 07/27/19 24 Allergy Immunotherapy Injections completed KEN AGRAWALC, RMA [address] [place] [address], [address], [facility] - [facility] 07/27/2023 10:39:49 07/21/19 24 Allergy Immunotherapy Injections completed KEN RASTAZEC, RMA [address] [facility] [place],[address] [place] [address], [address], [facility] - [facility] 07/21/2023 10:29:54 Imaging Results None recorded. Procedure Notes None recorded. Medical Equipment None Reported. Allergies Allergen ID Allergen Name Allergen Category Reaction Reaction Severity Criticality Documentation Date Start Date Code Code System Note Provider Name and Address Organization Details Recorded Time 527696 oxycodone medicatio n Not available Not available Not available 07/19/2023 7804 RxNorm React ion: Dizzi ness, Abdom inal pain, Weakn ess; Not Available [facility] 01:20:52 404093 lactose Not available diarrhea Not available Not [...] mg tablet 09/08 completed Medicati on ID: [id number] B rand Name: dwight hill Send Method: E-Prescr ibed Sub s Allowed: subs OK Speci al Instruct ion: TAKE 1 TABLET BY MOUTH ONCE DAILY WITH FOOD Med icationG enericNa me: noemíoxica m Not Available Not Available Not Available [...] omeprazol e 20 mg capsule,d elayed release TAKE 1 CAPSULE BY MOUTH TWICE DAILY active Not Available [...] Multi-Vit schaefer tablet active Medicati on ID: [id number] B rand Name: Daily Multi-Vi tamin Se [...] (7) tablet 09/08 completed Medicati on ID: [id number] B rand Name: Jenise Fe [birth year]) [...] by Organization Details LastModified Time Mother Asthma [email or web address] Not availab le 04/23/2024 09:21:21 Sister Asthma [email or web address] Not availab le 04/23/2024 09:21:21 Sister Complication of anesthesia [id number] Not available 09:21:21 Sister Allergy to food [email or web address] Not available 09:21:21 Medical History Condition Response Allergies/Hayfever Y Heart Problems N Anxiety N Tonsil Infections N Emphysema N Migraines N Thyroid Problems Y Glaucoma N Depression N COPD N Developmental Delay N Nasal or Sinus Problems Y Anemia Y Immune System Disorder N Anesthesia Complications N Heart Attack ([place]) N Other Skin Condition N Diabetes N [...] SNOMED-CT Code Diagnosis ICD10 Code Diagnosis Note [id number] Isa Zaragoza Allergy [address] [place] [address] 100 [place] [address] 05/15/2024 12:02:41 05/15/2024 12:06:39 Perennial allergic rhinitis [id number] J30.89 [id number] SCOTTY RICE Allergy [address] [place] [address] [place] [address] 05/22/2024 09:23:27 05/22/2024 09:30:49 Perennial allergic rhinitis [id number] J30.89 90223 JUAQUIN YAÑEZ RN Allergy [address] [place] [address] 100 [place] [address] 05/29/2024 10:30:47 05/29/2024 10:31:45 Perennial allergic rhinitis [id number] J30.89 [id number] JUAQUIN YAÑEZ RN Allergy [address] [place] [address] 100 [place] [address] 06/13/2024 10:52:10 06/13/2024 10:59:44 Perennial allergic rhinitis [id number] J30.89 Health Concerns Section Related Observation LastModified by Organization Detai ls LastModified Time None Recorded Concern Status LastModified by Organization Details LastModified Time None Recorded Payers Encounter Date Sequence Insurance Name Policy Number Policy Roche Covered Member ID Roche Member ID Guarantor Name 06/13/2024 1 [facility] [id number] Shelia Fitzgerald [id number] Shelia Fitzgerald OBGyn Episode No OBEpisode recorded.
--- OUTSIDE RECORDS SUMMARY | 2024-06-13 14:36 | XMS_ITS | Data Portability ---
Author Organization [place] - [facility], Allergy Address [address] [address] Care Team Providers Care Manager Statistics Name Role Phone TOD JENKINS Primary Care Provider [phone] Assessment Encounter Date Assessment Date Assessment LastModified by Organization Details LastModified Time 05/08/2024 05/08/2024 Visit With: Juaquin Yañez RN Use of Antihistamine s: Yes If yes: Vial Test Change in medications: No If yes ? ? ? Increase in asthma symptoms If yes, inhaler use: Reaction to last injections: No If yes: ? ? ? Allergy Symptoms: Other: ? ? ? Missed: Dose Aware of Vial Test Yes Notes:? ? ? [email or web address] Not available 05/08/2024 09:54:14 05/15/2024 05/15/2024 Visit With: Kiah Lucio Use of Antihistamine s: No If yes: Vial Test Yes Change in medications: No If yes ? ? ? Increase in asthma symptoms If yes, inhaler use: Reaction to last injections: Yes If yes: ? ? ?right upper 20mm Allergy Symptoms: Other: ? ? ? Missed: Dose Aware of Vial Test Notes:? ? ? [email or web address] Not available 05/15/2024 12:04:54 05/22/2024 05/22/2024 Visit With: Kiah Lucio Use of Antihistamine s: No If yes: Vial Test Change in medications: No If yes ? ? ? Increase in asthma symptoms No Asthma Hx If yes, inhaler use: Reaction to last injections: No If yes: ? ? ? Allergy Symptoms: Other: ? ? ? Missed: Dose Aware of Vial Test Notes:? ? ? [email or web address] Not available 05/22/2024 09:25:03 05/29/2024 05/29/2024 Visit With: Juaquin Yañez RN Use of Antihistamine s: No If yes: Vial Test Change in medications: No If yes ? ? ? Increase in asthma symptoms No Asthma Hx If yes, inhaler use: Reaction to last injections: No If yes: ? ? ? Allergy Symptoms: Other: ? ? ? Missed: Dose Aware of Vial Test Notes:? ? ? [email or web address] Not available 05/29/2024 10:31:26 06/13/2024 06/13/2024 Visit With: Juaquin Yañez RN [...] WNE Not available Not available Not available Establis hed- Allergy f-up 6mon 2024 10:30A M [...] Organization Details Recorded Time Achalasia of esophagus 82309451 Active 2022 Achalasia NOS; Note: Date Diagnosed : 06/23/2022 2:49 PM (K22.0) Not Available [facility] 4 03:10:05 Respirato ry finding 409353175 Active 2022 Feeling of foreign body in throat; Note: Date Diagnosed : 06/23/2022 2:49 PM (R09.89) Not Available [facility] 4 03:10:05 Cardiovas cular finding 227723746 Active 2022 Feeling of foreign body in throat; Note: Date Diagnosed : 06/23/2022 2:49 PM (R09.89) Not Available [facility] 4 03:10:05 Posterior rhinorrhe a 54529846 Active 2022 Postnasal drip; Note: Date Diagnosed : 06/23/2022 2:49 PM (R09.82) Not Available [facility] 4 03:10:04 Allergic rhinitis 41747950 Active 2023 Allergic rhinitis: Due to other [...] Date Diagnosed : 10/16/19 Not Available [facility] 4 01:25:32 Deviated nasal septum 841296963 Active 2022 Deviated nasal septum; Note: Date Diagnosed : 06/23/2022 2:49 PM (J34.2) Not Available [facility] 4 03:10:04 Perennial allergic rhinitis 297846008 Active 2023 KEN AGRAWAL, A 100 [facility] 100, [place], [address] , [place] [facility] 4 10:29:26 Snoring 13325733 Active 2023 Snoring; Note: Date Diagnosed : 04/04/2023 8:51 AM (R06.83) Not Available [facility] 4 03:10:03 Obesity 352770090 Active 2023 Other obesity; Note: Date Diagnosed : 04/04/2023 8:51 AM (E66.8) Not Available [facility] 4 03:10:04 Tinnitus of vascular origin 858257317 Active 2023 Pulsatile tinnitus, right ear; Note: Date Diagnosed : 04/04/2023 8:49 AM (H93.A1) Not Available [facility] 4 03:10:04 Sensorine ural hearing loss 90347937 Active 2023 Sensorine ural hearing loss, unilatera l, right ear, with unrestric jaswant hearing on the contralat eral side; Note: Date Diagnosed : 04/04/2023 9:26 AM (H90.41) Not Available [facility] 4 03:10:05 Abnormal auditory perceptio n 95104345 Active 2023 JOSE VELÁZQUEZ MD [address], [place], [address] , [place] - [facility] 4 21:49:47 Subjectiv e pulsatile tinnitus of right ear [id number] 08098 Active 2023 JOSE VELÁZQUEZ MD 100 [facility],[place] [address], [place], [address] , [facility] - [facility] 4 21:53:02 Abnormal auditory perceptio n 00353941 Active 2023 JOSE VELÁZQUEZ MD 100 [facility],[place] [address], [place], [address] , [place] [facility] 4 09:14:23 Non-aller gic rhinitis 66702559483 1 Active 2023 Oh hernández [place] - [facility] 4 12:14:47 Seasonal allergic rhinitis 426815245 Active 2023 Oh hernández [place] - [facility] 4 12:14:47 Chronic sinusitis 64482412 Active 2023 Oh hernández [place] - [facility] 4 12:16:47 Polyp of nasal cavity 490210152 Active 2023 Oh hernández [place] - [facility] 4 12:17:03 Polypoid sinus degenerat ion 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 Procedures Surgical History Date Name Laterality Status Provider Name and Address Organization Details Recorded Time 06/14/19 25 Allergy Immunotherapy Injections completed JUAQUIN YAÑEZ RN 100 [facility],[address], [address], [place] [facility] 06/13/2024 10:59:19 05/30/19 25 Allergy Immunotherapy Injections completed JUAQUIN YAÑEZ RN 100 [facility],[address], [address], [place] [facility] 05/29/2024 10:31:20 05/23/19 25 Allergy Immunotherapy Injections completed Isa Zaragoza [place] - [facility] 05/22/2024 09:24:53 05/16/19 25 Allergy Immunotherapy Injections completed KIAH LUCIO, RMA [address], [place], [address], [place] [facility] 05/15/2024 12:04:32 05/09/19 25 Allergy Immunotherapy Injections completed KEN KORZEC, RMA [address], [place], [address], [place] [facility] 05/08/2024 09:54:06 05/01/19 25 Allergy Immunotherapy Injections completed KEN KORZEC, RMA [address], [place], [address], [place] [facility] 05/01/2024 10:21:08 04/23/19 25 Allergy Immunotherapy Injections completed KIAH LUCIO, RMA [address], [place], [address], [place] [facility] 04/23/2024 09:59:03 04/03/19 25 Allergy Immunotherapy Injections completed KEN MAGDALENOZEC, RMA [address], [place], [address], [place] [facility] 04/03/2024 10:20:26 03/28/19 25 Allergy Immunotherapy Injections completed JUAQUIN YAÑEZ RN [address],[place] [address], [place], [address], [place] [facility] 03/28/2024 10:48:14 03/20/19 25 Allergy Immunotherapy Injections completed KEN RASTAZEC, RMA [address],[place] [address], [place], [address], [place] [facility] 03/20/2024 09:23:24 03/13/19 25 Allergy Immunotherapy Injections completed KEN KORZEC, RMA [address],[place] [address], [place], [address], [place] [facility] 03/13/2024 11:58:51 03/08/19 25 Allergy Immunotherapy Injections completed KEN KORZEC, RMA [address],[place] [address], [place], [address], [place] [facility] 03/08/2024 12:13:50 03/01/20 24 Allergy Immunotherapy Injections completed JUAQUIN YAÑEZ RN [address],[place] [facility], [place], [address], [place] [facility] 03/01/2024 09:38:10 02/23/20 24 Allergy Immunotherapy Injections completed JUAQUIN YAÑEZ RN [address], [place], [address], [place] [facility] 02/23/2024 10:01:24 02/14/20 24 Allergy Immunotherapy Injections completed SCOTTY GUTHRIE [address], [place], [address], [place] [facility] 02/14/2024 11:05:56 02/07/20 24 Allergy Immunotherapy Injections completed JUAQUIN YAÑEZ RN [address],[place] [address] [place] [address], [address], [place] [facility] 02/07/2024 10:14:23 02/03/20 24 Allergy Immunotherapy Injections completed SCOTTY RICE [address],[place] [address] [place] [address], [address], [place] [facility] 02/03/2024 09:34:55 01/24/20 24 Allergy Immunotherapy Injections completed JUAQUIN YAÑEZ RN [address],[place] [address] [place] [address], [address], [place] [facility] 01/24/2024 10:50:50 01/19/20 24 Allergy Immunotherapy Injections completed SCOTTY RICE [address], [place], [address], [place] [facility] 01/19/2024 13:18:23 01/10/20 24 Allergy Immunotherapy Injections completed SCOTTY RICE [address],[place] [address], [place], [address], [place] [facility] 01/10/2024 09:42:22 01/03/20 24 Allergy Immunotherapy Injections completed JUAQUIN YAÑEZ RN [address],[place] [address], [place], [address], [place] [facility] 01/03/2024 11:08:00 12/29/19 24 Allergy Immunotherapy Injections completed KIAH LUCIO RMA [address],[place] [address], [place], [address], [place] [facility] 12/29/2023 09:38:54 12/21/19 24 Allergy Immunotherapy Injections completed KEN CARDENAS, RMA [address], [place], [address], [place] [facility] 12/21/2023 11:30:52 12/14/19 24 Allergy Immunotherapy Injections completed JUAQUIN YAÑEZ RN [address],[place] [address], [place], [address], [place] [facility] 12/14/2023 11:25:12 11/23/19 24 Allergy Immunotherapy Injections completed KEN CARDENAS, RMA [address], [place], [address], [place] [facility] 11/23/2023 10:31:13 11/17/19 24 Allergy Immunotherapy Injections completed KEN CARDENAS, RMA [address], [place], [address], [place] [facility] 11/17/2023 09:42:16 11/09/19 24 Allergy Immunotherapy Injections completed JUAQUIN YAÑEZ RN [address],[place] [address] [place] [address], [address], [place] [facility] 11/09/2023 11:29:05 11/01/19 24 Allergy Immunotherapy Injections completed JUAQUIN YAÑEZ RN [address],[place] [address], [place], [address], [place] [facility] 11/01/2023 10:43:38 10/27/19 24 Allergy Immunotherapy Injections completed KEN CARDENAS, RMA [address],[place] [address], [place], [address], [place] [facility] 10/27/2023 11:59:30 10/19/19 24 Allergy Immunotherapy Injections completed JUAQUIN YAÑEZ RN [address],[place] [address], [place], [address], [place] [facility] 10/19/2023 10:27:27 10/19/19 24 Air & Speech Audio with Tymps ([id number], 80499 & 48826) completed DARRIUS OSMAN MA, CCC-A [address],[place] [address] [place] [address], [address], [place] [facility] 10/19/2023 09:45:15 10/11/19 24 Allergy Immunotherapy Injections completed SCOTTY RICE [address] [facility] [place] [address] [place] [address], [address], [place] [facility] 10/11/2023 09:44:13 10/04/19 24 Allergy Immunotherapy Injections completed SCOTTY GUTHRIE 100 [facility],[place] [address] [place] [address], [address], [place] [facility] 10/04/2023 12:12:37 09/27/19 24 Allergy Immunotherapy Injections completed JUAQUIN YAÑEZ RN 100 [facility],[address], [address], [facility] - [facility] 09/27/2023 10:51:29 09/20/19 24 Allergy Immunotherapy Injections completed JUAQUIN YAÑEZ RN [address] [facility] [place],[address], [address], [place] [facility] 09/20/2023 10:20:29 09/13/19 24 Allergy Immunotherapy Injections completed SCOTTY RICE [address] [facility] [place],[address], [address], [facility] - [facility] 09/13/2023 12:56:00 09/05/19 24 Allergy Immunotherapy Injections completed JUAQUIN YAÑEZ RN 100 [facility],[address], [address], [place] [facility] 09/05/2023 09:56:55 08/31/19 24 Allergy Immunotherapy Injections completed SCOTTY RICE [address],[place] [address] [place] [address], [address], [place] [facility] 08/31/2023 09:14:03 08/23/19 24 Allergy Immunotherapy Injections completed KEN KORZEC, RMA [address], [place], [address], [facility] - [facility] 08/23/2023 09:35:11 08/17/19 24 Allergy Immunotherapy Injections completed KEN MAGDALENOZEC, RMA [address],[place] [address], [place], [address], [facility] - [facility] 08/17/2023 10:13:24 08/10/19 24 Allergy Immunotherapy Injections completed KEN RASTAZEC, RMA [address],[place] [address], [place], [address], [facility] - [facility] 08/10/2023 11:14:06 08/03/19 24 Allergy Immunotherapy Injections completed JUAQUIN YAÑEZ RN [address],[place] [address] [place] [address], [address], [facility] - [facility] 08/03/2023 10:25:33 07/27/19 24 Allergy Immunotherapy Injections completed KEN NGHIA, RMA [address] [facility] [place] [address] [place] [address], [address], [facility] - [facility] 07/27/2023 10:39:49 07/21/19 24 Allergy Immunotherapy Injections [facility] [address] [facility] [place] [address] [place] [address], [address], [facility] - [facility] 07/21/2023 10:29:54 Imaging Results None recorded. Procedure Notes None recorded. Medical Equipment None Reported. Allergies Allergen ID Allergen Name Allergen Category Reaction Reaction Severity Criticality Documentation Date Start Date Code Code System Note Provider Name and Address Organization Details Recorded Time 043510 oxycodone medicatio n Not available Not available Not available 07/19/2023 7804 RxNorm React ion: Dizzi ness, Abdom inal pain, Weakn ess; Not Available [facility] 4 01:20:52 600416 lactose Not available diarrhea Not available Not available 07/19/2023 6211 RxNorm React ion: Diarr hea; Not Available [facility] 4 01:20:53 Medications Name Sig [...] mg tablet 09/08 completed Medicati on ID: [id number] Tyesha narayanan Name: dwight hill Send Method: [...] Multi-Vit schaefer tablet active Medicati on ID: [id number] B rand Name: Daily Multi-Vi tamin Se [...] (7) tablet 09/08 completed Medicati on ID: [id number] B rand Name: Jenise Fe 03/26 (28) [...] by Organization Details LastModified Time Mother Asthma [email or web address] Not availab le 04/23/2024 09:21:21 Sister Asthma [email or web address] Not availab le 04/23/2024 09:21:21 Sister Complication of anesthesia [email or web address] Not available 09:21:21 Sister Allergy to food [email or web address] Not available 09:21:21 Medical History Condition Response Allergies/Hayfever Y Heart Problems N Anxiety N Tonsil Infections N Emphysema N Migraines N Thyroid Problems Y Glaucoma N Depression N COPD N Developmental Delay N Nasal or Sinus Problems Y Anemia Y Immune System Disorder N Anesthesia Complications N Heart Attack ([place]) N Other Skin Condition N Diabetes N [...] Diagnosis Note [id number] JOSE VELÁZQUEZ MD Allergy [address] [place] [address] it [address] [place] [address] 07/21/2023 10:01:06 07/22/2023 13:03:52 Perennial allergic rhinitis [id number] J30.89 [id number] JOSE VELÁZQUEZ MD Allergy [address] [place] [address] ite [address] [place] [address] 07/27/2023 10:17:14 07/27/2023 11:20:05 Perennial allergic rhinitis [id number] J30.89 1806 JUAQUIN YAÑEZ RN Allergy [address] [place] [address] it[address] [place] [address] 08/03/2023 10:24:55 08/03/2023 13:01:24 Perennial allergic rhinitis [id number] J30.89 [id number] KEN CARDENAS [facility] Allergy [address] [place] [address] ite [address] [place] [address] 08/10/2023 10:49:51 08/10/2023 11:19:10 Perennial allergic rhinitis [id number] J30.89 [id number] KEN CARDENAS [facility] Allergy [address] [place] [address],[place] [address] [place] [address] 08/17/2023 09:07:38 08/17/2023 11:14:32 Perennial allergic rhinitis [id number] J30.89 [id number] [facility] Allergy [address] [place] [address],[place] [address] [place] [address] 08/23/2023 09:03:10 08/23/2023 13:26:57 Perennial allergic rhinitis [id number] J30.89 5606 KIAH LUCIO [facility] Allergy [address] [place] [address], [address] [place] [address] 08/31/2023 08:49:58 08/31/2023 11:02:35 Perennial allergic rhinitis [id number] J30.89 6153 JUAQUIN YAÑEZ RN Allergy [address] [place] [address] it[address] [place] [address] 09/05/2023 08:46:12 09/05/2023 10:03:05 Perennial allergic rhinitis [id number] J30.89 7075 KIAH LUCIO [facility] Allergy [address] [place] [address] it[address] [place] [address] 09/13/2023 08:41:30 09/13/2023 14:37:18 Perennial allergic rhinitis [id number] J30.89 [id number] JUAQUIN YAÑEZ RN Allergy [address] [place] [address] it[address] [place] [address] 09/20/2023 10:16:20 09/21/2023 13:05:24 Perennial allergic rhinitis [id number] J30.89 [id number] JUAQUIN YAÑEZ RN Allergy [address] [place] [address] it[address] [place] [address] 09/27/2023 09:14:35 09/27/2023 10:52:56 Perennial allergic rhinitis [id number] J30.89 [id number] [facility], [facility] Allergy [address] [place] [address],[place] it[address] [place] [address] 10/04/2023 12:11:42 10/04/2023 12:14:07 Perennial allergic rhinitis [id number] J30.89 [id number] KIAH LUCIO [facility] Allergy [address] [place] [address],[place] [address] [place] [address] 10/11/2023 09:43:29 10/11/2023 11:09:54 Perennial allergic rhinitis [id number] J30.89 [id number] JOSE VELÁZQUEZ MD [facility] [address] [place] [address] 10/19/2023 09:06:55 10/19/2023 10:05:09 Allergic rhinitis 29706118 J30.9 Doing well with immunother apy. EpiPen up-to-date . Abnormal a uditory perception 68290325 H93.291 Audio bilateral SNHL--stab le Subjective pulsatile tinnitus of right ear [id number] 261112 H93.A1 Previous MRA was negative. Deviated nasal septum 12 1223070 J34.2 mild Sensorineu ral hearing loss 39014495 H90.41 10-19-2023 udiologica l evaluation results: Right [...] Cou ld not maintain a hermetic seal}} [id number] JUAQUIN YAÑEZ RN Allergy [address] [place] [address],[place] [address] [place] [address] 10/19/2023 10:26:27 10/19/2023 10:27:52 Perennial allergic rhinitis [id number] J30.89 [id number] [facility] Allergy [address] [place] [address], [address] [place] [address] 10/27/2023 09:20:07 10/27/2023 13:21:33 Perennial allergic rhinitis [id number] J30.89 [id number] JUAQUIN YAÑEZ RN Allergy [address] [place] [address], [address] [place] [address] 11/01/2023 10:42:48 11/01/2023 10:44:36 Perennial allergic rhinitis 595430903 J30.89 [id number] JUAQUIN YAÑEZ RN Allergy [address] [place] [address] it[address] [place] [address] 11/09/2023 11:26:12 11/09/2023 11:29:30 Perennial allergic rhinitis [id number] J30.89 [id number] [facility], [facility] Allergy [address] [place] [address], [address] [place] [address] 11/17/2023 09:40:52 11/17/2023 11:43:31 Perennial allergic rhinitis [id number] J30.89 [id number] JUAQUIN YAÑEZ RN Allergy [address] [place] [address], [address] [place] [address] 11/23/2023 10:27:55 11/23/2023 10:32:23 Perennial allergic rhinitis [id number] J30.89 [id number] JUAQUIN YAÑEZ RN Allergy [address] [place] [address],[place] it[address] [place] [address] 12/14/2023 11:23:54 12/14/2023 11:25:34 Perennial allergic rhinitis [id number] J30.89 [id number] [facility], [facility] Allergy [address] [place] [address],[place] it[address] [place] [address] 12/21/2023 11:30:12 12/21/2023 11:31:30 Perennial allergic rhinitis [id number] J30.89 [id number] KIAH LUCIO [facility] Allergy [address] [place] [address],[place] it[address] [place] [address] 12/29/2023 09:38:10 12/29/2023 09:40:16 Perennial allergic rhinitis [id number] J30.89 [id number] JUAQUIN YAÑEZ RN Allergy [address] [place] [address] it[address] [place] [address] 01/03/2024 11:06:53 01/03/2024 11:08:17 Perennial allergic rhinitis [id number] J30.89 [id number] KIAH LUCIO [facility] Allergy [address] [place] [address], [address] [place] [address] 01/10/2024 09:41:40 01/10/2024 09:42:52 Perennial allergic rhinitis [id number] J30.89 [id number] KIAH LUCIO [facility] Allergy [address] [place] [address] it[address] [place] [address] 01/19/2024 13:16:02 01/19/2024 13:20:09 Perennial allergic rhinitis [id number] J30.89 [id number] JUAQUIN YAÑEZ RN Allergy [address] [place] [address] it[address] [place] [address] 01/24/2024 10:49:50 01/24/2024 10:52:32 Perennial allergic rhinitis [id number] J30.89 [id number] KIAH LUCIO [facility] Allergy [address] [place] [address], [address] [place] [address] 02/03/2024 09:25:49 02/03/2024 09:35:31 Perennial allergic rhinitis [id number] J30.89 [id number] JUAQUIN YAÑEZ RN Allergy [address] [place] [address],[place] [address] [place] [address] 02/07/2024 10:13:39 02/07/2024 10:14:50 Perennial allergic rhinitis [id number] J30.89 [id number] KEN CARDENAS, [facility] Allergy [address] [place] [address],[place] [address] [place] [address] 02/14/2024 11:05:15 02/14/2024 11:06:25 Perennial allergic rhinitis [id number] J30.89 [id number] JUAQUIN YAÑEZ RN Allergy [address] [place], [place] [address] [address] [place] [address] 02/23/2024 10:00:14 02/23/2024 10:01:52 Perennial allergic rhinitis [id number] J30.89 [id number] JUAQUIN YAÑEZ RN Allergy [address] [place], [place] [address]e [address] [place] [address] 03/01/2024 09:37:35 03/01/2024 09:38:44 Perennial allergic rhinitis [id number] J30.89 [id number] [facility] NGHIA, [facility] Allergy [address] [place], [place] [address] [address] [place] [address] 03/08/2024 12:13:01 03/08/2024 12:14:59 Perennial allergic rhinitis [id number] J30.89 [id number] [facility] [facility], [facility] Allergy [address] [place], [place] [address] [address] [place] [address] 03/13/2024 11:57:35 03/13/2024 11:59:25 Perennial allergic rhinitis [id number] J30.89 [id number] [facility], [facility] Allergy [address] [place], [place] [address] [address] [place] [address] 03/20/2024 09:19:50 03/20/2024 09:23:46 Perennial allergic rhinitis [id number] J30.89 [id number] JUAQUIN YAÑEZ RN Allergy [address] [place] [address] ite [address] [place] [address] 03/28/2024 10:20:37 03/28/2024 10:48:37 Perennial allergic rhinitis [id number] J30.89 [id number] [facility] NGHIA, [facility] Allergy [address] [place] [address] ite [address] [place] [address] 04/03/2024 10:19:02 04/03/2024 10:20:47 Perennial allergic rhinitis [id number] J30.89 [id number] JOSE VELÁZQUEZ MD [facility] [address] [place] [address], [place] [address] 04/23/2024 09:16:11 04/23/2024 09:38:20 Allergic rhinitis [id number] J30.89 Doing well with immunother apy. New Epipen prescribed [id number] KIAH LUCIO, [facility] Allergy 100 [facility],[place] ite [address] [place], [place] [address] 04/23/2024 09:58:15 04/23/2024 09:59:52 Perennial allergic rhinitis [id number] J30.89 [id number] [facility], [facility] Allergy 100 [facility],[place] ite [address] [place], [place] [address] 05/01/2024 10:16:09 05/01/2024 10:21:59 Perennial allergic rhinitis [id number] J30.89 [id number] [facility], [facility] Allergy 100 [facility],[place] ite [address] [place], [place] [address] 05/08/2024 09:53:32 05/08/2024 09:54:40 Perennial allergic rhinitis [id number] J30.89 [id number] Isa Zaragoza Allergy [address] [place] [address],[place] ite [address] [place], [place] [address] 05/15/2024 12:02:41 05/15/2024 12:06:39 Perennial allergic rhinitis [id number] J30.89 [id number] KIAH LUCIO, [facility] Allergy 100 [facility],[place] ite [address] [place], [place] [address] 05/22/2024 09:23:27 05/22/2024 09:30:49 Perennial allergic rhinitis [id number] J30.89 [id number] JUAQUIN YAÑEZ RN Allergy [address] [place] [address],[place] ite [address] [place], [place] [address] 05/29/2024 10:30:47 05/29/2024 10:31:45 Perennial allergic rhinitis [id number] J30.89 [id number] JUAQUIN YAÑEZ RN Allergy [address] [place] [address],[place] ite [address] [place], [place] [address] 06/13/2024 10:52:10 06/13/2024 10:59:44 Perennial allergic rhinitis [id number] J30.89 Health Concerns Section Related Observation LastModified by Organization Detai ls LastModified Time None Recorded Concern Status LastModified by Organization Details LastModified Time None Recorded Advance Directives Directive None Recorded Payers Encounter Date Sequence Insurance Name Policy Number Policy Roche Covered Member ID Roche Member ID Guarantor Name 05/08/2024 1 [place] [facility] [id number] Shelia Haya [id number] Shelia Haya 05/15/2024 1 [place] [facility] [id number] Shelia Haya [id number] Shelia Haya 05/22/2024 1 [place] [facility] [id number] Shelia Haya [id number] Shelia Haya 05/29/2024 1 [place] [facility] [id number] Shelia Haya [id number] Shelia Haya 06/13/2024 1 [place] [facility] [id number] Shelia Haya [id number] Shelia Haya OBGyn Episode No OBEpisode recorded.
--- OUTSIDE RECORDS SUMMARY | 2024-06-13 14:36 | XMS_ITS | Clinical Summary ---
Author Organization 175 [facility] Address [address] [place] [address] Phone Care Team Providers Care Chucker Name Role Phone Bonnie Anh MD Primary Care Provider [phone] Allergies Active Allergy Reactions Criticality Noted Date [...] (one) time each day. 30 each 2 5 07/03/19 25 Active buPROPion XL (WELLBUTRIN XL) 150 mg 24 hr tabletIndications :Obesity, Class I, BMI 30-34.9 Take 1 tablet (150 mg total) by mouth 1 (one) time each day in the morning. 30 each 2 5 07/03/19 25 Active Active Problems Problem Noted Date Diagnosed Date Class 2 obesity with body ma ss index (BMI) of 35.0 to 35.9 in adult 02/01/2024 Abdominal pannus 08/24/2019 Diastasis recti 08/24/2019 Intertrigo 08/24/2019 Skin laxity 08/24/2019 Excess weight 03/29/2019 Intestinal malabsorption following gastrectomy 0 11/29/2017 Achalasia 08/19/2017 Encounters Date Type Department Care Team Description 04/03/2024 9:00 AM EST Office Visit Bariatric Surgery - [address] [place] [address] Radha West MD Obesity, Class I, [...] HISTORY PROCEDURE: ARTHROSCOPY PROCEDURE NEC SECTION PROCEDURE: GA DELIVERY ONLY OTHER SURGICAL HISTORY PROCEDURE: HISTORY OTHER; COMMENT: surgery for blood clot. Medical History Medical History Date Comments History of bariatric surgery 08/19/2017 DX: History of bariatric surgery; COMMENT: 02/23/2017 Laparoscopic sleeve gastrectomy, Dr. West Achalasia 08/19/2017 DX:Achalasia Morbid obesity with BMI of 45.0-49.9, adult ([facility]) 08/19/2017 DX:Morbid obesity with BMI of 45.0-49.9, adult ([facility]) Family History Medical History Relation Name Comments [...] AM EDT Office Visit Bariatric Surgery - [place] [address] [address] Radha West MD [address] [address] Health Maintenance Due Date Last Done Comments [...] 5 season) 2023 05/08/2020, 2020 Influenza Vaccine (Season Ended) 2024 HIB Vaccines Aged Out No longer eligi [...] age to complete this topic Meningococcal B Vaccine Aged Out No l onger eligible based on patient's age to complete [...] to complete this topic Insurance Care Teams Chucker Relationship Specialty Start Date End Date Bonnie Ahn MD [address] [place] [address] , [address] Physician Associ D/B/A: [facility] [place] Larson PCP - General Internal Medicine 03/29/19
== END 2024-06-13 12:56 | disposition home or self-care (01) ==
LOC: HO.HOS 12:39
PROVIDERS: PCP Internal Medicine; Visit Provider Orthopaedic Surgery
DX: M17.12 Unilateral primary osteoarthritis, left knee (principal)
CPT/HCPCS: 99213

== ENCOUNTER → 2024-06-13 12:38 | Outpatient (BNVA) | payer BC, SELFPAY | PROVIDERS: PCP Internal Medicine; Visit Provider Orthopaedic Surgery ==

== ENCOUNTER 2024-06-14 06:06 | Day surgery (SDC) | payer BC, SELFPAY ==
--- OUTSIDE RECORDS SUMMARY | 2024-05-02 08:08 | XMS_ITS | Continuity of Care Document ---
Author Organization [place] - [facility], Allergy Address [address] [address] Care Team Providers Care Public Interviewer Name Role Phone TOD JENKINS Primary Care [...] Organization Details Last Modified Time Details Appointments [facility]- Allergy f-up 6mon 2024 10:30A M JOSE [...] Organization Details Recorded Time Achalasia of esophagus 94087608 Active 2022 Achalasia NOS; Note: Date Diagnosed : 06/23/2022 2:49 PM (K22.0) Not Available [facility] 4 03:10:05 Respirato ry finding 705848743 Active 2022 Feeling of foreign body in throat; Note: Date Diagnosed : 06/23/2022 2:49 PM (R09.89) Not Available [facility] 4 03:10:05 Cardiovas cular finding 267621941 Active 2022 Feeling of foreign body in throat; Note: Date Diagnosed : 06/23/2022 2:49 PM (R09.89) Not Available [facility] 4 03:10:05 Posterior rhinorrhe a 07864777 Active 2022 Postnasal drip; Note: Date Diagnosed : 06/23/2022 2:49 PM (R09.82) Not Available [facility] 4 03:10:04 Allergic rhinitis 61873052 Active 2023 Allergic rhinitis: Due to other [...] Note: Date Diagnosed : 10/16/19 Not Available [facility] 4 01:25:32 Deviated nasal septum 480139911 Active 2022 Deviated nasal septum; Note: Date Diagnosed : 06/23/2022 2:49 PM (J34.2) Not Available [facility] 4 03:10:04 Perennial allergic rhinitis 414744974 Active 2023 [facility] [address] [facility],[place] [address], [place], [address] , [facility] 4 10:29:26 Snoring 63197577 Active 2023 Snoring; Note: Date Diagnosed : 04/04/2023 8:51 AM (R06.83) Not Available [facility] 4 03:10:03 Obesity 970100882 Active 2023 Other obesity; Note: Date Diagnosed : 04/04/2023 8:51 AM (E66.8) Not Available [facility] 4 03:10:04 Tinnitus of vascular origin 981161653 Active 2023 Pulsatile tinnitus, right ear; Note: Date Diagnosed : 04/04/2023 8:49 AM (H93.A1) Not Available [facility] 4 03:10:04 Sensorine ural hearing loss 88403219 Active 2023 Sensorine ural hearing loss, unilatera l, right ear, with unrestric jaswant hearing on the contralat eral side; Note: Date Diagnosed : 04/04/2023 9:26 AM (H90.41) Not Available [facility] 4 03:10:05 Abnormal auditory perceptio n 53571620 Active 2023 JOSE VELÁZQUEZ MD [address] [facility] [place], [place], [address] , [facility] [place] [place] 4 21:49:47 Subjectiv e pulsatile tinnitus of right ear 06387374376 61922 Active 2023 JOSE VELÁZQUEZ MD [address] [facility] [facility] [place],[address], [place], [address] , [facility] - [facility] [place] 4 21:53:02 Abnormal auditory perceptio n 41585574 Active 2023 JOSE VELÁZQUEZ MD [address] [facility] [facility] [place],[facility] [address], [place], [address] , [facility] - [facility] [place] 4 09:14:23 Non-aller gic rhinitis 34481997921 1 Active 2023 Oh hernández [place] - [facility] [place] 4 12:14:47 Seasonal allergic rhinitis 954794232 Active 2023 Oh hernández [place] - [facility] [place] 4 12:14:47 Chronic sinusitis 66134993 Active 2023 Oh hernández [place] - [facility] [place] 4 12:16:47 Polyp of nasal cavity 032252840 Active 2023 Oh hernández [place] - [facility] [place] 4 12:17:03 Polypoid sinus degenerat ion 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 Procedures Surgical History Date Name Laterality Status Provider Name and Address Organization Details Recorded Time 05/01/19 Allergy Immunotherapy Injections completed KEN CARDENAS Kend[place] [address] [facility] [facility], [place], [address], [facility] - [facility] 05/01/2024 10:21:08 04/23/19 Allergy Immunotherapy Injections completed VALORIE LUCIO Kendell [address] [facility] [place], [place], [address], [place] [facility] [place] 04/23/2024 09:59:03 04/03/19 25 Allergy Immunotherapy Injections completed KEN CARDENAS, RMA [address],[place] [address], [address], [place] [facility] [place] 04/03/2024 10:20:26 03/28/19 25 Allergy Immunotherapy Injections completed JUAQUIN YAÑEZ RN [address],[place] [address], [address], [place] [facility] 03/28/2024 10:48:14 03/20/19 25 Allergy Immunotherapy Injections completed KEN CARDENAS, RMA [address],[place] [address], [address], [place] [facility] 03/20/2024 09:23:24 03/13/19 25 Allergy Immunotherapy Injections completed KEN AGRAWALC, RMA [address],[place] [address] [place] [address], [address], [place] [facility] 03/13/2024 11:58:51 03/08/19 25 Allergy Immunotherapy Injections completed KEN CARDENAS, RMA [address],[place] [address], [address], [place] [facility] 03/08/2024 12:13:50 03/01/20 24 Allergy Immunotherapy Injections completed JUAQUIN YAÑEZ RN [address],[place] [address] [place] [address], [address], [place] [facility] 03/01/2024 09:38:10 02/23/20 24 Allergy Immunotherapy Injections completed JUAQUIN YAÑEZ RN [address] [facility] [address], [address], [place] [facility] 02/23/2024 10:01:24 02/14/20 24 Allergy Immunotherapy Injections completed KEN CARDENAS, RMA [address],[place] [address], [address], [place] [facility] 02/14/2024 11:05:56 02/07/20 24 Allergy Immunotherapy Injections completed JUAQUIN YAÑEZ RN [address] [address] [facility] [address], [place], [address], [place] [facility] 02/07/2024 10:14:23 02/03/20 24 Allergy Immunotherapy Injections completed SCOTTY RICE [address],[place] [address], [address], [place] [facility] [place] 02/03/2024 09:34:55 01/24/20 24 Allergy Immunotherapy Injections completed JUAQUIN YAÑEZ RN [address] [address] [facility] [address],[place] [address], [address], [place] [facility] [place] 01/24/2024 10:50:50 01/19/20 24 Allergy Immunotherapy Injections completed SCOTTY RICE [address] [address] [facility] [address],[place] [address] [place] [address], [address], [place] [facility] 01/19/2024 13:18:23 01/10/20 24 Allergy Immunotherapy Injections completed SCOTTY RICE [address] [facility] [address] [facility] [address],[place] [address] [place] [address], [address], [place] [facility] 01/10/2024 09:42:22 01/03/20 24 Allergy Immunotherapy Injections completed JUAQUIN YAÑEZ RN [address] [facility] [facility] [place] [address] [place] [address], [address], [place] [facility] 01/03/2024 11:08:00 12/29/19 24 Allergy Immunotherapy Injections completed SCOTTY RICE [address] [address] [facility],[place] [address] [place] [address], [address], [place] [facility] 12/29/2023 09:38:54 12/21/19 24 Allergy Immunotherapy Injections completed SCOTTY GUTHRIE [address],[place] [address], [address], [place] [facility] 12/21/2023 11:30:52 12/14/19 24 Allergy Immunotherapy Injections completed JUAQUIN YAÑEZ RN [address] [address] [facility] [address],[place] [address], [address], [place] [facility] 12/14/2023 11:25:12 11/23/19 24 Allergy Immunotherapy Injections completed SCOTTY GUTHRIE [address], [place], [address], [facility] - [facility] [place] 11/23/2023 10:31:13 11/17/19 24 Allergy Immunotherapy Injections completed KEN CARDENAS Kendell [address] [facility] [place],[address], [address], [facility] - [facility] [place] 11/17/2023 09:42:16 11/09/19 24 Allergy Immunotherapy Injections completed JUAQUIN YAÑEZ RN [address] [facility],[address], [address], [facility] - [facility] [place] 11/09/2023 11:29:05 11/01/19 24 Allergy Immunotherapy Injections completed JUAQUIN YAÑEZ RN [address] [facility],[address], [address], [facility] - [facility] [place] 11/01/2023 10:43:38 10/27/19 24 Allergy Immunotherapy Injections completed KEN CARDENAS Kendell [address] [facility],[address], [address], [facility] - [facility] [place] 10/27/2023 11:59:30 10/19/19 24 Allergy Immunotherapy Injections completed JUAQUIN YAÑEZ RN [address] [facility],[address], [address], [facility] - [facility] [place] [place] 10/19/2023 10:27:27 10/19/19 24 Air & Speech Audio with Tymps (47898, 60498 & 21194) completed DARRIUS OSMAN [place] CCC-Kendell [address] [facility],[address], [address], [facility] - [facility] [place] 10/19/2023 09:45:15 10/11/19 24 Allergy Immunotherapy Injections completed SCOTTY RICE [address] [facility],[address], [address], [facility] - [facility] [place] 10/11/2023 09:44:13 10/04/19 24 Allergy Immunotherapy Injections completed KEN CARDENAS Kendell [address] [facility],[address], [address], [facility] - [facility] [place] 10/04/2023 12:12:37 07/23/20 24 Allergy Immunotherapy Injections completed JUAQUIN YAÑEZ RN [address],[place] [address], [address], [place] [facility] 09/27/2023 10:51:29 09/20/19 24 Allergy Immunotherapy Injections completed JUAQUIN YAÑEZ RN [address],[place] [address], [address], [place] [facility] 09/20/2023 10:20:29 09/13/19 24 Allergy Immunotherapy Injections completed SCOTTY RICE [address],[place] [address], [address], [place] [facility] [place] [place] 09/13/2023 12:56:00 09/05/19 24 Allergy Immunotherapy Injections completed JUAQUIN YAÑEZ RN [address] [facility] [address],[place] [address] [place] [address], [address], [place] [facility] 09/05/2023 09:56:55 08/31/19 24 Allergy Immunotherapy Injections completed SCOTTY RICE [address],[place] [address] [place] [address], [address], [place] [facility] [place] 08/31/2023 09:14:03 08/23/19 24 Allergy Immunotherapy Injections completed KEN CARDENAS RMKendell [address],[place] [address], [address], [place] [facility] [place] 08/23/2023 09:35:11 08/17/19 24 Allergy Immunotherapy Injections completed KEN CARDENAS RMKendell [address],[place] [address], [address], [place] [facility] 08/17/2023 10:13:24 08/10/19 24 Allergy Immunotherapy Injections completed KEN CARDENAS RMKendell [address],[place] [address], [address], [place] [facility] 08/10/2023 11:14:06 08/03/19 24 Allergy Immunotherapy Injections completed JUAQUIN YAÑEZ RN [address],[place] [address], [address], [place] [facility] 08/03/2023 10:25:33 07/27/19 24 Allergy Immunotherapy Injections completed [facility] [address] [facility],[address], [address], [facility] 07/27/2023 10:39:49 07/21/19 24 Allergy Immunotherapy Injections completed [facility] [address] [facility],[address], [address], [facility] 07/21/2023 10:29:54 Imaging Results None recorded. Procedure Notes None recorded. Medical Equipment None Reported. Allergies Allergen ID Allergen Name Allergen Category Reaction Reaction Severity Criticality Documentation Date Start Date Code Code System Note Provider Name and Address Organization Details Recorded Time 902776 oxycodone medicatio n Not available Not available Not available 07/19/2023 7804 RxNorm React ion: Dizzi ness, Abdom inal pain, Weakn ess; Not Available [facility] 4 01:20:52 221586 lactose Not available diarrhea Not available Not available 07/19/2023 6211 RxNorm React ion: Diarr hea; Not Available [facility] 4 01:20:53 Medications Name Sig [...] mg tablet 09/08 completed Medicati on ID: [id number] B rand Name: dwight hill Send Method: [...] Multi-Vit schaefer tablet active Medicati on ID: [id number] B rand Name: Daily Multi-Vi tamin Se [...] (7) tablet 09/08 completed Medicati on ID: [id number] B rand Name: Jenise Fe 03/26 () [...] by Organization Details LastModified Time Mother Asthma [id number] Not availab le 04/23/2024 09:21:21 Sister Asthma [id number] Not availab le 04/23/2024 09:21:21 Sister Complication of anesthesia [id number] Not available 09:21:21 Sister Allergy to food [id number] Not available 09:21:21 Medical History Condition Response [...] Y Immune System Disorder N Heart Attack ([place]) N Other Skin Condition N Diabetes N [...] SNOMED-CT Code Diagnosis ICD10 Code Diagnosis Note 07128 DOMINIC GUTHRIEA Allergy [address] [facility] [place] [place] [address] 03/08/2024 12:13:01 03/08/2024 12:14:59 Perennial allergic rhinitis 314732913 J30.89 [id number] KEN CARDENAS RMA Allergy [address] [facility] [place],[address] [place] [address] 03/13/2024 11:57:35 03/13/2024 11:59:25 Perennial allergic rhinitis 248628790 J30.89 [id number] KEN CARDENAS RMA Allergy [address] [facility] [place],[address] [place] [address] 03/20/2024 09:19:50 03/20/2024 09:23:46 Perennial allergic rhinitis 395663306 J30.89 [id number] JUAQUIN YAÑEZ RN Allergy [address] [facility],[address] [place] [address] 03/28/2024 10:20:37 03/28/2024 10:48:37 Perennial allergic rhinitis 541102878 J30.89 [id number] KEN CARDENAS RMA Allergy [address] [facility] [place],[address] [place] [address] 04/03/2024 10:19:02 04/03/2024 10:20:47 Perennial allergic rhinitis 753304030 J30.89 Health Concerns Section Related Observation LastModified by Organization Detai ls LastModified Time None Recorded Concern Status LastModified by Organization Details LastModified Time None Recorded Payers Encounter Date Sequence Insurance Name Policy Number Policy Roche Covered Member ID Roche Member ID Guarantor Name 04/03/2024 1 [place] [facility] ([place]) [id number] Shelia Haya [id number] Shelia Haya OBGyn Episode No OBEpisode recorded.
--- OUTSIDE RECORDS SUMMARY | 2024-05-02 08:08 | XMS_ITS | Encounter Summary ---
Author Organization [employer] Address [address] [place] [address] Care Team Providers Care Occupational Safety And Health Manager Name Role Phone Bonnie Ahn MD Primary Care Provider [phone] Reason for Referral * Consultation (Routine) - Pending Review Specialty Diagnoses / Procedures Referred By Mehrdad leung Referred To Contact Plastic Surgery Diagnoses Symptomatic abdominal panniculus Radha West MD [address] [place] [address] Phone: tel: fax: Jenna Kwok MD [address] [place] [address] Phone: tel: fax: Referral ID Status Reason Start Date Expiration Date Visits Requested Visits Authorized [id number] Pending Review Specialty Services Required 04/03/2024 04/03/2025 1 1 Reason for Visit * Reason Comments Follow-up 3 month follow up Encounter Details Date Type Department Care Team (Late st Contact Info) Description 04/03/2024 9:00 AM EST Office Visit Bariatric Surgery - [address] [address] Radha West MD [address] [address] Obesity, Class I, BMI 30-34.9 (Primary Dx); [...] Surgical History: Procedure Laterality Date SECTION PROCEDURE: UT DELIVERY ONLY CHOLECYSTECTOMY 02/23/2017 PROCEDURE: HISTORICAL CHOLECYSTECTOMY [...] AM EDT Office Visit Bariatric Surgery - [address] [address] Radha West MD 175 [facility] [address] [place] [address] Scheduled Referrals Name Type Priority Associated Diagnoses [...] documented as of this encounter Care Teams Occupational Safety And Health Manager Relationship Specialty Start Date End Date Bonnie Ahn MD [address] [place] [address] , [address] [facility] D[facility]A: [facility] [place] PCP - General Internal Medicine 03/29/19 documented as of this encounter
--- OUTSIDE RECORDS SUMMARY | 2024-05-02 08:08 | XMS_ITS | Continuity of Care Document ---
Author Organization [place] - [facility], Allergy Address [address] [address] Care Team Providers Care Compliance Review Specialist Name Role Phone TOD JENKINS Primary Care Provider Assessment Encounter Date Assessment Date Assessment LastModified by Organization Details LastModified Time 05/01/2024 05/01/2024 Visit With: Juaquin Yañez RN Use of Antihistamine s: No If yes: Vial Test Change in medications: No If yes ? ? ? Increase in asthma symptoms If yes, inhaler use: Reaction to last injections: No If yes: ? ? ? Allergy Symptoms: Other: ? ? ? Missed: Dose Aware of Vial Test Notes:? ? ? [email or web address] Not available 05/01/2024 10:21:34 Plan of Treatment Reminders Order Date Submit Date Provider Last Modified By Organization Details Last Modified Time Details Appointments [facility]- Allergy f-up 6mon 2024 [...] Organization Details Recorded Time Achalasia of esophagus 09201374 Active 2022 Achalasia NOS; Note: Date Diagnosed : 06/23/2022 2:49 PM (K22.0) Not Available [facility] 4 03:10:05 Respirato ry finding 921098084 Active 2022 Feeling of foreign body in throat; Note: Date Diagnosed : 06/23/2022 2:49 PM (R09.89) Not Available [facility] 4 03:10:05 Cardiovas cular finding 151235385 Active 2022 Feeling of foreign body in throat; Note: Date Diagnosed : 06/23/2022 2:49 PM (R09.89) Not Available [facility] 4 03:10:05 Posterior rhinorrhe a 15931156 Active 2022 Postnasal drip; Note: Date Diagnosed : 06/23/2022 2:49 PM (R09.82) Not Available [facility] 4 03:10:04 Allergic rhinitis 66116956 Active 2023 Allergic rhinitis: Due to other [...] Date Diagnosed : 10/16/19 Not Available [facility] 4 01:25:32 Deviated nasal septum 772221875 Active 2022 Deviated nasal septum; Note: Date Diagnosed : 06/23/2022 2:49 PM (J34.2) Not Available [facility] 4 03:10:04 Perennial allergic rhinitis 937372843 Active [address],[place] [address], [place], [address] , [facility] - [facility] 4 10:29:26 Snoring 67217203 Active 2023 Snoring; Note: Date Diagnosed : 04/04/2023 8:51 AM (R06.83) Not Available [facility] 4 03:10:03 Obesity 025700627 Active 2023 Other obesity; Note: Date Diagnosed : 04/04/2023 8:51 AM (E66.8) Not Available [facility] 4 03:10:04 Tinnitus of vascular origin 218321704 Active 2023 Pulsatile tinnitus, right ear; Note: Date Diagnosed : 04/04/2023 8:49 AM (H93.A1) Not Available [facility] 4 03:10:04 Sensorine ural hearing loss 83264298 Active 2023 Sensorine ural hearing loss, unilatera l, right ear, with unrestric jaswant hearing on the contralat eral side; Note: Date Diagnosed : 04/04/2023 9:26 AM (H90.41) Not Available [facility] 4 03:10:05 Abnormal auditory perceptio n 13177024 Active 2023 JOSE VELÁZQUEZ MD [address], [place], [address] , [facility] - [facility] 4 21:49:47 Subjectiv e pulsatile tinnitus of right ear [id number] 49231 Active 2023 JOSE VELÁZQUEZ MD [address], [place], [address] , [facility] - [facility] 4 21:53:02 Abnormal auditory perceptio n 71680923 Active 2023 JOSE VELÁZQUEZ MD [address] [facility] [address], [place], [address] , 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 Procedures Surgical History Date Name Laterality Status Provider Name and Address Organization Details Recorded Time 05/01/19 25 Allergy Immunotherapy Injections completed KEN CARDENAS [place] [address] [facility] [address] [facility], [place], [address], [facility] - [facility] 05/01/2024 10:21:08 04/23/19 25 Allergy Immunotherapy Injections completed SCOTTY RICE [address] [facility] [address], [place], [address], [place] - [facility] 04/23/2024 09:59:03 04/03/19 25 Allergy Immunotherapy Injections completed KEN AGRAWALC, RMA [address], [address], [place] [facility] 04/03/2024 10:20:26 03/28/19 25 Allergy Immunotherapy Injections completed JUAQUIN YAÑEZ RN [address], [address], [place] [facility] 03/28/2024 10:48:14 03/20/19 25 Allergy Immunotherapy Injections completed KEN AGRAWALC, RMA [address], [address], [place] [facility] 03/20/2024 09:23:24 03/13/19 25 Allergy Immunotherapy Injections completed KEN AGRAWALC, RMA [address] [place] [address], [address], [place] [facility] 03/13/2024 11:58:51 03/08/19 25 Allergy Immunotherapy Injections completed KEN CARDENAS, RMA [address] [place] [address], [address], [place] [facility] 03/08/2024 12:13:50 03/01/20 24 Allergy Immunotherapy Injections completed JUAQUIN YAÑEZ RN [address] [place] [address], [address], [place] [facility] 03/01/2024 09:38:10 02/23/20 24 Allergy Immunotherapy Injections completed JUAQUIN YAÑEZ RN [address] [facility] [address] [facility] [address], [address], [place] [facility] 02/23/2024 10:01:24 02/14/20 24 Allergy Immunotherapy Injections completed KEN CARDENAS, RMA [address], [address], [place] [facility] 02/14/2024 11:05:56 02/07/20 24 Allergy Immunotherapy Injections completed JUAQUIN YAÑEZ RN [address], [address], [place] [facility] 02/07/2024 10:14:23 02/03/20 24 Allergy Immunotherapy Injections completed SCOTTY RICE [address], [address], [place] [facility] 02/03/2024 09:34:55 01/24/20 24 Allergy Immunotherapy Injections completed JUAQUIN YAÑEZ RN [address] [facility] [address], [address], [place] [facility] 01/24/2024 10:50:50 01/19/20 24 Allergy Immunotherapy Injections completed SCOTTY RICE [address] [facility] [address] [facility] [address], [address], [place] [facility] 01/19/2024 13:18:23 01/10/20 24 Allergy Immunotherapy Injections completed SCOTTY RICE [address] [facility] [address] [facility] [address] [place] [address], [address], [place] [facility] 01/10/2024 09:42:22 01/03/20 24 Allergy Immunotherapy Injections completed JUAQUIN YAÑEZ RN [address] [facility] [place],[address] [place] [address], [address], [place] [facility] 01/03/2024 11:08:00 12/29/19 24 Allergy Immunotherapy Injections completed SCTOTY RICE [address] [facility] [address] [facility] [address] [place] [address], [address], [place] [facility] 12/29/2023 09:38:54 12/21/19 24 Allergy Immunotherapy Injections completed SCOTTY GUTHRIE [address], [address], [place] [facility] 12/21/2023 11:30:52 12/14/19 24 Allergy Immunotherapy Injections completed JUAQUIN YAÑEZ RN [address] [facility] [address], [address], [place] [facility] 12/14/2023 11:25:12 11/23/19 24 Allergy Immunotherapy Injections completed SCOTTY GUTHRIE [address], [address], [place] [facility] 11/23/2023 10:31:13 11/17/19 24 Allergy Immunotherapy Injections completed SCOTTY GUTHRIE 100 [facility],[address], [address], [place] [facility] 11/17/2023 09:42:16 11/09/19 24 Allergy Immunotherapy Injections completed JUAQUIN YAÑEZ RN 100 [facility],[address], [address], [place] [facility] 11/09/2023 11:29:05 11/01/19 24 Allergy Immunotherapy Injections completed JUAQUIN YAÑEZ RN 100 [facility],[address], [address], [facility] - [facility] 11/01/2023 10:43:38 10/27/19 24 Allergy Immunotherapy Injections completed KEN CARDENAS [place] 100 [facility],[address], [address], [facility] - [facility] 10/27/2023 11:59:30 10/19/19 24 Allergy Immunotherapy Injections completed JUAQUIN YAÑEZ RN 100 [facility],[address], [address], [place] [facility] 10/19/2023 10:27:27 10/19/19 24 Air & Speech Audio with Tymps (61838, 11493 & 25043) completed DARRIUS OSMAN MA, CCC-A 100 [facility],[address], [address], [place] [facility] 10/19/2023 09:45:15 10/11/19 24 Allergy Immunotherapy Injections completed SCOTTY RICE 100 [facility],[address], [address], [place] [facility] 10/11/2023 09:44:13 10/04/19 24 Allergy Immunotherapy Injections completed SCOTTY GUTHRIE 100 [facility],[address], [address], [place] [facility] 10/04/2023 12:12:37 09/27/19 24 Allergy Immunotherapy Injections completed JUAQUIN YAÑEZ RN [address], [place], [address], [place] [facility] 09/27/2023 10:51:29 09/20/19 24 Allergy Immunotherapy Injections completed JUAQUIN YAÑEZ RN [address], [place], [address], [place] [facility] 09/20/2023 10:20:29 09/13/19 24 Allergy Immunotherapy Injections completed SCOTTY RICE [address], [place], [address], [place] [facility] 09/13/2023 12:56:00 09/05/19 24 Allergy Immunotherapy Injections completed JUAQUIN YAÑEZ RN [address] [facility] [address], [place], [address], [place] [facility] 09/05/2023 09:56:55 08/31/19 24 Allergy Immunotherapy Injections completed SCOTTY RICE [address] [facility] [address], [place], [address], [place] [facility] 08/31/2023 09:14:03 08/23/19 24 Allergy Immunotherapy Injections completed SCOTTY GUTHRIE [address], [address], [place] [facility] 08/23/2023 09:35:11 08/17/19 24 Allergy Immunotherapy Injections completed KEN CARDENAS RMKendell [address], [address], [place] [facility] 08/17/2023 10:13:24 08/10/19 24 Allergy Immunotherapy Injections completed KEN CARDENAS RMKendell [address], [address], [place] [facility] 08/10/2023 11:14:06 08/03/19 24 Allergy Immunotherapy Injections completed JUAQUIN YAÑEZ RN [address], [place], [address], [place] [facility] 08/03/2023 10:25:33 07/27/19 24 Allergy Immunotherapy Injections completed LAFOURCHE, [facility], [facility] 100 [facility],[address], [address], [facility] 07/27/2023 10:39:49 07/21/19 24 Allergy Immunotherapy Injections completed [facility], RMA 100 [facility], [place], [address], [facility] 07/21/2023 10:29:54 Imaging Results None recorded. Procedure Notes None recorded. Medical Equipment None Reported. Allergies Allergen ID Allergen Name Allergen Category Reaction Reaction Severity Criticality Documentation Date Start Date Code Code System Note Provider Name and Address Organization Details Recorded Time 569307 oxycodone medicatio n Not available Not available Not available 07/19/2023 7804 RxNorm React ion: Dizzi ness, Abdom inal pain, Weakn ess; Not Available [facility] 4 01:20:52 599162 lactose Not available diarrhea Not available Not available 07/19/2023 6211 RxNorm React ion: Diarr hea; Not Available [facility] 4 01:20:53 Medications Name Sig Start Date [...] mg tablet 09/08 completed Medicati on ID: [id number] B rand Name: johna sergio Send Method: E-Prescr ibed Sub s [...] Multi-Vit schaefer tablet active Medicati on ID: [id number] B rand Name: Daily Multi-Vi tamin Se [...] (7) tablet 09/08 completed Medicati on ID: [id number] B rand Name: Jenise Fe 03/26 () Cortes d Method: E-Prescr ibed Sub s Allowed: subs OK Medic ationGen ericName : Jenise Fe 03/26 () Not Available Not Available Not Available Vitals None Recorded Social History None recorded. Functional Status None recorded. Mental Status None recorded. Family History Relationship Description Onset Age of this Age Resolved Age Notes LastModified by Organization Details LastModified Time Mother Asthma [email or web address] Not availab le 04/23/2024 09:21:21 Sister Asthma [email or web address] Not availab le 04/23/2024 09:21:21 Sister Complication of anesthesia [email or web address] Not available 09:21:21 Sister Allergy to food Not available 09:21:21 Medical History Condition Response Tonsil Infections N Emphysema N Depression N COPD N Arthritis Y Cancer N Stroke N Headaches N Fibromyalgia N Kidney Disease N Heart Problems N Anxiety N Migraines N Other Skin Condition N Rhinitis N Bleeding Disorder N Food Allergy Y Nasal polyps N Asthma N Sleep Disorder N GERD/Reflux N Glaucoma N Nasal or Sinus Problems Y Anesthesia Complications N Hearing Loss Y High Cholesterol N Liver Disease N Speech Delay N Allergies/Hayfever Y Thyroid Problems Y Developmental Delay N Anemia Y Immune System Disorder N Heart Attack (SD) N Diabetes N Hyperlipidemia N Dementia N Hypertension N Gynecological HistoryNo gynecological history recorded. Obstetrics History GPAL:G 0 P 0 0 0 0 Past Encounters Encounter ID Performer Location Encounter Start Date Encounter Closed Date Diagnosis/Indication Diagnosis SNOMED-CT Code Diagnosis ICD10 Code Diagnosis Note [id number] KEN AGRAWAL, RMA Allergy [address] [place] [address] 04/03/2024 10:19:02 04/03/2024 10:20:47 Perennial allergic rhinitis 896065651 J30.89 [id number] JOSE VELÁZQUEZ MD [facility] - [facility] 100 [facility] [place] [address] 04/23/2024 09:16:11 04/23/2024 09:38:20 Allergic rhinitis 76255201 J30.89 Doing well with immunother apy. New Epipen prescribed [id number] VALORIE LUCIO, A Allergy 100 [facility],[address] [place] [address] 04/23/2024 09:58:15 04/23/2024 09:59:52 Perennial allergic rhinitis [id number] J30.89 [id number] KEN NGHIA, RMA Allergy 100 [facility] 100 [facility] [place] [address] 05/01/2024 10:16:09 05/01/2024 10:21:59 Perennial allergic rhinitis 916162096 J30.89 Health Concerns Section Related Observation LastModified by Organization Detai ls LastModified Time None Recorded Concern Status LastModified by Organization Details LastModified Time None Recorded Payers Encounter Date Sequence Insurance Name Policy Number Policy Roceh Covered Member ID Roche Member ID Guarantor Name 05/01/2024 1 [facility] [id number] Shelia Fitzgerald [id number] Shelia Fitzgerald OBGyn Episode No OBEpisode recorded.
--- OUTSIDE RECORDS SUMMARY | 2024-05-02 08:08 | XMS_ITS | Clinical Summary ---
Author Organization [address] [facility] Address [address] [place] [address] Phone Care Team Providers Care Water Gas Operator Name Role Phone Bonnie Ahn MD Primary Care Provider [phone] Allergies Active Allergy Reactions Criticality Noted Date [...] AM EST Office Visit Bariatric Surgery - [address] [place] [address] Radha West MD Obesity, Class I, [...] HISTORY PROCEDURE: ARTHROSCOPY PROCEDURE NEC SECTION PROCEDURE: [place] DELIVERY ONLY OTHER SURGICAL HISTORY PROCEDURE: HISTORY [...] AM EDT Office Visit Bariatric Surgery - [place] 175 [facility] [address] [place] [phone] Radha West MD 175 [facility] [address] [place] [address] Health Maintenance Due Date Last Done Comments [...] to complete this topic Insurance Care Teams Water Gas Operator Relationship Specialty Start Date End Date Jimy, Bonnie R, MD [address] [facility] , [address] [facility] D/B/A: [facility] ESTEFANÍA Larson PCP - General Internal Medicine 03/29/19
[2024-06-12 09:05] VITALS: BMI 33.8
--- NOTE | 2024-06-13 08:20 | HO.ANESPROP2 ---
Documented by User: Yenifer Cool NP 06/13/24 08:27 HPI - Anesthesia Eval Consult details Narrative: 54yo F for Upper Endoscopy Eliquis for DVT PMFSH Active Problems Active Problems: All Active Problems Right elbow pain (Acute) Left knee pain (Acute) Rash (Acute) Obesity (BMI 35.0-39.9 without comorbidity) (Acute) Hair loss (Acute) Goiter (Acute) Hospital discharge follow-up (Acute) Left leg pain (Acute) Skin lesion (Acute) Chronic sinusitis (Acute) Left knee pain (Acute) Physical exam (Acute) Syncope (Acute) Physical exam (Acute) Hypothyroidism (Acute) RLQ abdominal pain (Acute) Obesity (Acute) Deep vein thrombosis (Acute 07/28/22) Class 1 obesity with body mass index (BMI) of 34.0 to 34.9 in adult (Acute) Osteoarthritis of left knee (Acute) Hypovitaminosis D (Acute) Toenail deformity (Acute) Left shoulder pain (Acute) Constipation by delayed colonic transit (Acute) Past Medical History Medical History (Updated 06/12/24 @ 08:58 by Samaria Brito RN) Deep vein thrombosis (07/28/22) Obesity (BMI 35.0-39.9 without comorbidity) Class 1 obesity with body mass index (BMI) of 34.0 to 34.9 in adult Thrombocytopenia Pancytopenia Osteoarthritis of left knee Hypovitaminosis D Toenail deformity Left shoulder pain Constipation by delayed colonic transit Hypothyroidism Family History Family History Father Diabetes CVD (cardiovascular disease) Myocardial infarction Mother CVD (cardiovascular disease) Hypertension Maternal Grandmother No problems noted. Maternal Grandfather Prostate cancer Family/Other Mental health disorder Family history of problems with anesthesia: No Surgical History Surgical History History of esophagogastroduodenoscopy (EGD) H/O colonoscopy H/O gastric sleeve Venous insufficiency of left leg History of surgery History of cholecystectomy History of arthroscopy of left knee History of section History of Problems with Anesthesia: No Social History Social History Household Members: Spouse and Children Housing: House Are you a primary transition of care specialist to a significant other at home: No Do you presently have visiting nurse or other home services: No Alcohol intake: never Comment: S3 Patient Tobacco Use Status: Never used Tobacco e-Cigarette/Vaping Use: Never Used Second Hand Smoke Exposure: No Use of substances other than those prescribed or required for medical reasons: No Have you been hit, kicked, punched, or otherwise hurt by someone within the past year? If so, by whom?: No Are you DNR?: No Advance Directives: No Advance Directives Information Provided: Yes Patient : No service: No Current occupational status: employed Current occupational exposures/hazards: No Cognitive needs: No Hearing needs: No Vision needs: Yes Meds Allergies Allergy/AdvReac Type Severity Reaction Status Date / Time lactose Allergy Intermediate diarrhea Verified 06/14/24 06:42 oxycodone AdvReac Mild Vomiting, Verified 06/14/24 06:42 stomach pain Home Medications ?Medication ?Instructions ?Recorded ?Confirmed ?Last Taken ?Type multivitamin 1 tab PO DAILY 09/09/20 06/14/24 Unknown History epinephrine 0.3 mg/0.3 mL 0.3 mg IM Q4H PRN Allergic Reaction 10/27/22 06/14/24 Unknown History injection, auto-injector (EpiPen) bupropion HCl 150 mg 24 hr tablet, 150 mg PO DAILY 12/29/23 06/14/24 Unknown History extended release topiramate 100 mg tablet 100 mg PO DAILY 12/29/23 06/14/24 Unknown History Exam Height,Weight and Vital Signs: Height 5 ft 4 in Weight 89.358 kg Pertinent Lab Results Pertinent Lab Results: Laboratory Tests 12/29/23 04/25/24 08:54 09:30 WBC 4.2 L Hgb 14.2 D Hct 42.2 Plt Count 160 Sodium 142 Potassium 4.7 Chloride 113 H Carbon Dioxide 24 BUN 19 H Creatinine 0.67 Assessment and Plan Assessment Anesthesia Assessment: Chart Reviewed Final Anesthetic Review Family History of Problems with Anesthesia: No History of Problems with Anesthesia: No Documented by User: Milagros Ratliff MD 06/14/24 07:25 [facility] Past Medical History Medical History (Updated 06/12/24 @ 08:58 by Samaria Brito, HERIBERTO) Deep vein thrombosis (07/28/22) Obesity (BMI 35.0-39.9 without comorbidity) Class 1 obesity with body mass index (BMI) of 34.0 to 34.9 in adult Thrombocytopenia Pancytopenia Osteoarthritis of left knee Hypovitaminosis D Toenail deformity Left shoulder pain Constipation by delayed colonic transit Hypothyroidism Family History Family History Father Diabetes CVD (cardiovascular disease) Myocardial infarction Mother CVD (cardiovascular disease) Hypertension Maternal Grandmother No problems noted. Maternal Grandfather Prostate cancer Family/Other Mental health disorder Surgical History Surgical History History of esophagogastroduodenoscopy (EGD) H/O colonoscopy H/O gastric sleeve Venous insufficiency of left leg History of surgery History of cholecystectomy History of arthroscopy of left knee History of section Social History Social History Household Members: Spouse and Children Housing: House Are you a primary transition of care specialist to a significant other at home: No Do you presently have visiting nurse or other home services: No Alcohol intake: never Comment: S3 Patient Tobacco Use Status: Never used Tobacco e-Cigarette/Vaping Use: Never Used Second Hand Smoke Exposure: No Use of substances other than those prescribed or required for medical reasons: No Have you been hit, kicked, punched, or otherwise hurt by someone within the past year? If so, by whom?: No Are you DNR?: No Advance Directives: No Advance Directives Information Provided: Yes Patient : No service: No Current occupational status: employed Current occupational exposures/hazards: No Cognitive needs: No Hearing needs: No Vision needs: Yes Meds Allergies Allergy/AdvReac Type Severity Reaction Status Date / Time lactose Allergy Intermediate diarrhea Verified 06/14/24 06:42 oxycodone AdvReac Mild Vomiting, Verified 06/14/24 06:42 stomach pain Home Medications ?Medication ?Instructions ?Recorded ?Confirmed ?Last Taken ?Type multivitamin 1 tab PO DAILY 09/09/20 06/14/24 Unknown History epinephrine 0.3 mg/0.3 mL 0.3 mg IM Q4H PRN Allergic Reaction 10/27/22 06/14/24 Unknown History injection, auto-injector (EpiPen) bupropion HCl 150 mg 24 hr tablet, 150 mg PO DAILY 12/29/23 06/14/24 Unknown History extended release topiramate 100 mg tablet 100 mg PO DAILY 12/29/23 06/14/24 Unknown History Exam Airway Mallampati Class: II TM Dist: >3cm Neck ROM: Full Assessment and Plan Assessment Anesthesia Assessment: Anesthesia Plan Discussed Final Anesthetic Review NPO: Yes ASA Class: II Final Preanesthetic Review: No Changes in Pt Med Stat, Meds/Allgs Chart Reviewed, Consent Obtained/Reviewed and Anes Risks/Benef Reviewed Patient Risk: Low Procedure Risk: Low Anesthetic Plan Anesthetic Plan: TIVA Disposition: Standard PACU
[2024-06-14 06:43] VITALS: BP 113/70; PULSE 58; RESP 14; TEMP 36.6; O2SAT 100; BMI 32.5
[2024-06-14] MEDS: Lactated Ringers 1,000 ML 100 ML IVCONT (07:06)
--- NOTE | 2024-06-14 07:49 | MHC.SHP ---
Pre-Procedural Eval Section A - 24 Hr Update-Section A only Date of Service: 06/14/24 Section B - Complete if H&P > 30 days Chief Complaint: gerd, dysphagia Details of Present Illness: Deep vein thrombosis (07/28/22) Class 1 obesity with body mass index (BMI) of 34.0 to 34.9 in adult Thrombocytopenia Physical exam Pancytopenia Osteoarthritis of left knee Hypovitaminosis D Toenail deformity Obesity Left shoulder pain Constipation by delayed colonic transit Hypothyroidism Surgical History H/O gastric sleeve Venous insufficiency of left leg History of surgery History of cholecystectomy History of arthroscopy of left knee History of section Present Medications: see Short Stay Collaborative assessment Allergies: Allergies Allergy/AdvReac Type Severity Reaction Status Date / Time lactose Allergy Intermediate diarrhea Verified 06/14/24 06:42 oxycodone AdvReac Mild Vomiting, Verified 06/14/24 06:42 stomach pain Review of Systems Review of Systems Comment: 10 point ROS negative Exam Exam Comment: Gen appear: No acute distress HEENT: no icterus Chest: No overt resp distress Abd: soft, nontender, nondistended Psych: Stable affect, answering questions appropriately Neuro: A/Ox3 noted to move all extremities spontaneously Ext: no peripheral edema Plan Diagnosis/Plan: Unchanged I have reviewed the history and physical and performed a pertinent physical examination on my patient. No changes have occurred unless specified. Time Spent With Patient Time: Total time managing care of this patient today ____ minutes.
--- NOTE | 2024-06-14 08:08 | P.OP_ITS ---
Operative Note Operative Note Date of Service: 06/14/24 Narrative: Procedure: Esophagogastroduodenoscopy Endoscopist: Lulu Cota MD Indication: Hx of esophagitis, dysphagia Anesthesia Provider: Marlon Pham CRNA Anesthesia Type: MAC ?? EGD Procedure:?? The procedure, indications, preparation and potential complications were reviewed with the patient, who indicated understanding and gave written informed consent to proceed. A physical exam was performed. The endoscope was introduced through the mouth, and advanced to the second part of duodenum. The mucosa was carefully examined on slow withdrawal of the endoscope. The patient tolerated the procedure well. There were no immediate complications.? ? EGD Findings:? * Esophagus:? Normal mucosa noted in the entire esophagus. The Z line was at 33 cm and irregular up to 32 cm. Cold forceps biopsies were taken from the GE junction to r/o BE. A tissue cypher will also be sent. Middle esophagus forceps biopsies were also obtained to rule out eosinophilic esophagitis. * Stomach:? Tubular stomach anatomy was noted concurrent with hx of sleeve gastrectomy. The gastric pouch appeared dilated as retroflexion could be performed. Normal mucosa was noted in the stomach. * Duodenum:? Normal mucosa was noted in the whole of the examined duodenum. Additional intervention: Soft tipped Savary wire was introduced through the biopsy channel of the gastroscope and advanced to the antrum. ?The gastroscope was then backed out. ?Savary Velia bougie was advanced over the guidewire and the esophagus was dilated to 18 mm without any resistance felt. ?On relook, small tear was noted at the GE junction ? EGD Impressions:? * Irregular Z line (biopsy, tissue cypher) * GE junction stenosis (dilation) * s/p sleeve gastrectomy * Normal duodenum ?? Recommendations:?? * Follow biopsy results. Our office will call or send a letter with results within 7-10 days. * Resume anticoagulation tomorrow. * Cont PPI * Avoid NSAIDs. Above has been reviewed with the patient.
[2024-06-14 08:14] VITALS: BP 126/76; PULSE 71; RESP 16; TEMP 36.8; O2SAT 99
[2024-06-14 08:29] VITALS: BP 104/63; PULSE 63; RESP 18; TEMP 36.8; O2SAT 100
== END 2024-06-14 09:30 | disposition home or self-care (01) ==
PROVIDERS: PCP Internal Medicine; Visit Provider Internal Medicine
PROC: 0DJ08ZZ Inspection of Upper Intestinal Tract, Via Natural or Artificial Opening Endoscopic (ICD-10-PCS; CPT 43235; principal; 2024-06-14 07:30)
DX: K21.9 Gastro-esophageal reflux disease without esophagitis (principal); R13.10 Dysphagia, unspecified; K22.2 Esophageal obstruction; K22.70 Barrett's esophagus without dysplasia; K20.90 Esophagitis, unspecified without bleeding; K22.89 Other specified disease of esophagus; K59.01 Slow transit constipation; D69.6 Thrombocytopenia, unspecified; D61.818 Other pancytopenia; I82.502 Chronic embolism and thrombosis of unspecified deep veins of left lower extremity; E03.9 Hypothyroidism, unspecified; E66.811 Obesity, class 1; Z68.35 Body mass index [BMI] 35.0-35.9, adult; Z79.01 Long term (current) use of anticoagulants; Z79.899 Other long term (current) drug therapy; Z88.5 Allergy status to narcotic agent; Z91.011 Allergy to milk products; Z98.84 Bariatric surgery status; Z90.3 Acquired absence of stomach [part of]; Z98.890 Other specified postprocedural states
CPT/HCPCS: 43248; 43239; 88305; 88313; 88342; C1769; J2003; J2704

== ENCOUNTER → 2024-06-14 06:06 | Outpatient (BNV) | payer BC, SELFPAY | PROVIDERS: PCP Internal Medicine; Visit Provider Internal Medicine | DX: R13.10 Dysphagia, unspecified (principal); K22.2 Esophageal obstruction; Z90.3 Acquired absence of stomach [part of]; Z98.84 Bariatric surgery status | CPT/HCPCS: 43239; 43248 ==

== ENCOUNTER 2024-06-18 16:02 | Emergency (ER) | payer BC, SELFPAY ==
[2024-06-18 16:11] VITALS: BP 124/68; PULSE 94; RESP 15; TEMP 37.4; O2SAT 99; BMI 31.2
--- NOTE | 2024-06-18 16:12 | ED_ITS ---
HPI - General Adult General Chief complaint: Abdominal Pain Stated complaint: had procedure done last week cant eat/ pain Time Seen by Provider: 06/19/24 00:40 Source: patient Mode of arrival: ambulatory Limitations: no limitations History of Present Illness ED Provider: HPI narrative: Patient's dysphagia with history of sleeve gastrectomy status post EGD done on 06/14/2024 which showed irregular Z line, GE done junction stenosis dilatation done to 18 mm normal duodenum patient comes here as after the EGD patient not able to drink or eat much whatever she drink or eat she throws up Related Data Home Medications ?Medication ?Instructions ?Recorded ?Confirmed multivitamin 1 tab PO DAILY 09/09/20 06/14/24 epinephrine 0.3 mg/0.3 mL 0.3 mg IM Q4H PRN Allergic Reaction 10/27/22 06/14/24 injection, auto-injector (EpiPen) bupropion HCl 150 mg 24 hr tablet, 150 mg PO DAILY 12/29/23 06/14/24 extended release topiramate 100 mg tablet 100 mg PO DAILY 12/29/23 06/14/24 Previous Rx's ?Medication ?Instructions ?Recorded cyclobenzaprine 10 mg tablet 10 mg PO TID PRN muscle spasm 30 08/05/23 days #90 tabs betamethasone dipropionate 0.05 % 1 appl topical BID PRN skin 12/29/23 topical cream irritation 2 weeks #15 grams apixaban 2.5 mg tablet (Eliquis) 2.5 mg PO BID #60 tabs 03/01/24 ferrous sulfate 325 mg (65 mg 325 mg PO DAILY #60 tabs 03/01/24 iron) tablet (Feosol) tramadol 50 mg tablet 50 mg PO DAILY PRN pain 30 days 04/25/24 #30 tabs omeprazole 20 mg capsule,delayed 20 mg PO BID #60 caps 05/01/24 release levothyroxine 25 mcg tablet 25 mcg PO QAM 90 days #90 tabs 05/09/24 sucralfate 100 mg/mL oral 10 ml PO QID #420 mL 06/19/24 suspension (Carafate) Allergies Allergy/AdvReac Type Severity Reaction Status Date / Time lactose Allergy Intermediate diarrhea Verified 06/18/24 16:13 oxycodone AdvReac Mild Vomiting, Verified 06/18/24 16:13 stomach pain Review of Systems 2 Review of Systems: Yes all other systems are reviewed and are negative [facility] Past Medical History Medical History Deep vein thrombosis (07/28/22) Obesity (BMI 35.0-39.9 without comorbidity) Class 1 obesity with body mass index (BMI) of 34.0 to 34.9 in adult Thrombocytopenia Pancytopenia Osteoarthritis of left knee Hypovitaminosis D Toenail deformity Left shoulder pain Constipation by delayed colonic transit Hypothyroidism Surgical History History of esophagogastroduodenoscopy (EGD) H/O colonoscopy H/O gastric sleeve Venous insufficiency of left leg History of surgery History of cholecystectomy History of arthroscopy of left knee History of section Family History Family History Father Diabetes CVD (cardiovascular disease) Myocardial infarction Mother CVD (cardiovascular disease) Hypertension Maternal Grandmother No problems noted. Maternal Grandfather Prostate cancer Family/Other Mental health disorder Social History Social History Household Members: Spouse and Children Housing: House Are you a primary complex care nurse practitioner to a significant other at home: No Do you presently have visiting nurse or other home services: No Alcohol intake: never Comment: S3 Patient Tobacco Use Status: Never used Tobacco Smoked in Last 30 Days: No e-Cigarette/Vaping Use: Never Used Second Hand Smoke Exposure: No Use of substances other than those prescribed or required for medical reasons: No Advance Directives: No Advance Directives Information Provided: Yes Do you have a plan to hurt others: No Plan Patient : No service: No Current occupational status: employed Current occupational exposures/hazards: No Cognitive needs: No Hearing needs: No Vision needs: Yes Physical Exam ED Vital Signs: Vital Signs - 24 hr 06/19/24 02:15 06/19/24 03:11 Temperature 98.2 F 98.2 F Pulse Rate 65 65 Respiratory Rate 16 16 Blood Pressure 121/63 121/63 Pulse Oximetry 100 100 Oxygen Delivery Method Room Air Room Air BMI result Body Mass Index 31.2 Appearance: Alert. Oriented X3. No acute distress. Eyes: PERRLA, No Nystagmus ENT: Pharynx normal. Oral Mucosa moist Neck: Normal inspection. Neck supple. CVS: Normal heart rate and rhythm. Pulses normal. Respiratory: No respiratory distress. Equal air entry bilateral, no wheezing/rales/rhonchi Abdomen: Soft and mild epigastric tenderness Bowel sounds are present, no mass palpable, no CVA tenderness Skin: Skin warm and dry. Normal skin color. Normal skin turgor. Extremities: No lower extremity edema. No calf tenderness Neuro: Oriented X 3. No motor deficit. No sensory deficit.No cerebellar signs , cranial nerves II-XII intact Course Course Course Narrative: This is a Rapid Medical Examination (RME) performed by Philip Morgan PA-C in triage. Full HPI, ROS, assessment and treatment plan per primary provider in the Main ED. 06/18/24 1612 KAMILLE Guerra Hx: 54 yo female hx GERD and esophagitis 4 days s/p EGD w/ biopsy here for eval of epigastric abd pain, N/V/D since procedure. unable to tolerate PO intake. assoc chills, weakness. no known fevers. PE/vitals: well appearing Plan: labs, viral swabs - will defer imaging to primary provider Medications Administered Discontinued Medications Generic Name Dose Route Start Last Admin Trade Name Freq PRN Reason Stop Dose Admin Sodium Chloride 1,000 mls @ 999 mls/hr 06/19/24 00:58 06/19/24 02:45 Ns IV 06/19/24 01:58 Infused .Q1H1M ONE Infusion Lidocaine HCl 15 ml 06/19/24 01:02 06/19/24 01:32 Lidocaine Hcl Viscous 2 % 15 Ml Solution MUCOUS MEM 06/19/24 01:03 15 ml ONCE ONE Administration Ondansetron HCl 4 mg 06/19/24 00:58 06/19/24 01:26 Ondansetron Hcl 4 Mg/2 Ml Vial IVPUSH 06/19/24 00:59 4 mg ONCE ONE Administration Pantoprazole Sodium 40 mg 06/19/24 00:58 06/19/24 01:26 Pantoprazole Sodium 40 Mg/10 Ml Vial IVPUSH 06/19/24 00:59 40 mg ONCE ONE Administration Medical Decision Making Medical Decision Making MDM Narrative: Patient is with esophagitis post endoscopy after lidocaine viscous patient was able to drink liquids and had crackers likely from inflammation not from the stricture. Will prescribe sucralfate liquid mostly follow with GI as outpatient Differential Diagnosis Differential Diagnoses: The differential diagnosis associated with the presentation includes Lab Data MDM Lab Attestation statement: I reviewed the patient's lab results. 06/18/24 16:37 06/18/24 16:37 Labs: Lab Results 06/18/24 Range/Units 16:37 WBC 11.8 H (4.8-10.8) X10*3/uL RBC 4.69 (4.20-5.50) X10*6/uL Hgb 14.3 (12.0-16.0) g/dl Hct 42.8 (37.0-47.0) % MCV 91.3 (80.0-98.0) fL MCH 30.5 (27.0-33.0) pg MCHC 33.4 (31.0-35.0) g/dl RDW 12.5 (11.0-16.0) % Plt Count 189 (160-400) X10*3/uL MPV 12.1 (9.4-12.3) fL Immature Gran % (Auto) 0.3 (0.0-0.4) % Neut % (Auto) 88.0 H (45-73) % Lymph % (Auto) 3.5 L (20-40) % [place] % (Auto) 7.6 (2-11) % Eos % (Auto) 0.3 (0-4) % Baso % (Auto) 0.3 (0-2) % Lymph # (Auto) 0.4 L (1.2-4.9) X10*3/uL [place] # (Auto) 0.9 (0.1-1.2) X10*3/uL Eos # (Auto) 0.0 (0.0-0.4) X10*3/uL Baso # (Auto) 0.0 (0.0-0.2) X10*3/uL Abs Immat Gran (auto) 0.04 H (0.00-0.03) X10*3/uL Absolute Neuts (auto) 10.4 H (2.0-8.3) x10*3/uL Absolute Nucleated RBC 0.000 (0.0-0.012) X10*3/uL Nucleated RBC % (auto) 0.0 (0.0-0.2) /100WBC Sodium 140 (135-145) mmol/L Potassium 3.8 (3.3-5.1) mmol/L Chloride 109 H (96-108) mmol/L Carbon Dioxide 22 (22-29) mmol/L Anion Gap 13 (12-20) BUN 11 (9-16) mg/dL Creatinine 0.69 (0.5-1.4) mg/dL Estim Creat Clear Calc 99.1 Estimated GFR > 60 Random Glucose 108 (60-115) mg/dL Calcium 9.9 (8.4-10.2) mg/dL Magnesium 2.0 (1.6-2.6) mg/dL Total Bilirubin 0.7 (0.0-1.0) mg/dL AST 25 (5-31) U/L ALT 29 (0-31) U/L Alkaline Phosphatase 127 H (39-117) U/L Total Protein 7.8 (6.5-8.0) g/dL Albumin 4.1 (3.5-5.0) g/dL Lipase 51 (8-78) U/L Beta HCG, Quant < 2 mIU/mL Influenza Type A (PCR) NEGATIVE (Negative) Influenza Type B (PCR) NEGATIVE (Negative) RSV RNA Qual (PCR) NEGATIVE (Negative) SARS-CoV-2 RNA (RT-PCR) NEGATIVE (Negative) Discharge Plan Discharge Clinical Impression: Esophagitis Patient Disposition: Home, Self-Care Instructions: Esophagitis (ED) Additional Instructions: Drink plenty of fluids Take sucralfate 4 times a day before meals Continue Prilosec Follow with your GI Prescriptions: New sucralfate [Carafate] 100 mg/mL suspension 10 ml PO QID Qty: 420 0RF Rx Instructions: swish in mouth and swallow; use after food/drink No Action cyclobenzaprine 10 mg tablet 10 mg PO TID PRN (Reason: muscle spasm) 30 Days Qty: 90 1RF omeprazole 20 mg capsule,delayed release(DR/EC) 20 mg PO BID Qty: 60 3RF levothyroxine 25 mcg tablet 25 mcg PO QAM 90 Days Qty: 90 1RF multivitamin Tablet 1 tab PO DAILY epinephrine [EpiPen] 0.3 mg/0.3 mL Auto-Injector 0.3 mg IM Q4H PRN (Reason: Allergic Reaction) ferrous sulfate [Feosol] 325 mg (65 mg iron) Tablet 325 mg PO DAILY Qty: 60 2RF Eliquis 2.5 mg Tablet 2.5 mg PO BID Qty: 60 6RF bupropion HCl 150 mg tablet extended release 24 hr 150 mg PO DAILY topiramate 100 mg tablet 100 mg PO DAILY betamethasone dipropionate 0.05 % cream 1 appl topical BID PRN (Reason: skin irritation) 14 Days Qty: 15 0RF tramadol 50 mg tablet 50 mg PO DAILY PRN (Reason: pain) 30 Days Qty: 30 0RF Interventions: ED Discharge Assessment Last Done: 06/19/24 03:11 Discharge Date/Time: 06/19/24 03:20 Print Language: Romansh
[2024-06-18 16:45] LABS: Basophils Percent Auto 0.3 % (0-2); Eosinophils Percent Auto 0.3 % (0-4); Hematocrit 42.8 % (37.0-47.0); Hemoglobin 14.3 g/dl (12.0-16.0); Imm Gran Abs Auto 0.04 X10*3/uL (0.00-0.03); Imm Gran Pct Auto 0.3 % (0.0-0.4); Lymphocytes Absolute Auto 0.4 X10*3/uL (1.2-4.9); Lymphocytes Percent Auto 3.5 % (20-40); MANUAL DIFF FLAG NO; Mean Corpuscular HGB Conc 33.4 g/dl (31.0-35.0); Mean Corpuscular Hemoglobin 30.5 pg (27.0-33.0); Mean Corpuscular Volume 91.3 fL (80.0-98.0); Mean Platelet Volume 12.1 fL (9.4-12.3); Monocytes Absolute Auto 0.9 X10*3/uL (0.1-1.2); Monocytes Percent Auto 7.6 % (2-11); Neutrophils Absolute Auto 10.4 x10*3/uL (2.0-8.3); Platelet Count 189 X10*3/uL (160-400); Red Blood Count 4.69 X10*6/uL (4.20-5.50); Red Cell Distribution Width 12.5 % (11.0-16.0); White Blood Count 11.8 X10*3/uL (4.8-10.8)
[2024-06-18 16:59] LABS: Alanine Aminotransferase 29 U/L (0-31); Albumin Level 4.1 g/dL (3.5-5.0); Alkaline Phosphatase 127 U/L (39-117); Anion Gap 13 (12-20); Aspartate Amino Transferase 25 U/L (5-31); Bilirubin Total 0.7 mg/dL (0.0-1.0); Blood Urea Nitrogen 11 mg/dL (9-16); Calcium 9.9 mg/dL (8.4-10.2); Carbon Dioxide 22 mmol/L (22-29); Chloride 109 mmol/L (96-108); Creatinine Clr Calc Pharmacy 99.1; Estimated Glomerular Filt Rate > 60; Glucose Random 108 mg/dL (60-115); Lipase 51 U/L (8-78); Potassium 3.8 mmol/L (3.3-5.1); Sodium 140 mmol/L (135-145); Total Protein 7.8 g/dL (6.5-8.0)
[2024-06-18 17:23] LABS: Influenza A PCR NEGATIVE (Negative); Influenza B PCR NEGATIVE (Negative); Resp Syncy Virus RNA Qual PCR NEGATIVE (Negative); SARS COV2 PCR INHOUSE NEGATIVE (Negative)
--- OUTSIDE RECORDS SUMMARY | 2024-06-18 23:59 | XMS_ITS | Continuity of Care Document ---
Author Organization [place] [facility], Allergy Address [address] [address] Care Team Providers Care Tap Puller Name Role Phone TOD JENKINS Primary Care [...] Organization Details Last Modified Time Details Appointments [facility]- Allergy f-up 6mon 2024 10:30A M [...] Organization Details Recorded Time Achalasia of esophagus 01175697 Active 2022 Achalasia NOS; Note: Date Diagnosed : 06/23/2022 2:49 PM (K22.0) Not Available [facility] 4 03:10:05 Respirato ry finding 379813776 Active 2022 Feeling of foreign body in throat; Note: Date Diagnosed : 06/23/2022 2:49 PM (R09.89) Not Available [facility] 4 03:10:05 Cardiovas cular finding 037097327 Active 2022 Feeling of foreign body in throat; Note: Date Diagnosed : 06/23/2022 2:49 PM (R09.89) Not Available [facility] 4 03:10:05 Posterior rhinorrhe a 64802086 Active 2022 Postnasal drip; Note: Date Diagnosed : 06/23/2022 2:49 PM (R09.82) Not Available [facility] 4 03:10:04 Allergic rhinitis 13433367 Active 2023 Allergic rhinitis: Due to other [...] Diagnosed : 10/16/[address] [facility] 4 01:25:32 Deviated nasal septum 620057284 Active 2022 Deviated nasal septum; Note: Date Diagnosed : 06/23/2022 2:49 PM (J34.2) Not Available [facility] 4 03:10:04 Perennial allergic rhinitis 429076916 Active [address],[place] [address], [place], [address] , [facility] - [facility] 4 10:29:26 Snoring 60605810 Active 2023 Snoring; Note: Date Diagnosed : 04/04/2023 8:51 AM (R06.83) Not Available [facility] 4 03:10:03 Obesity 806359366 Active 2023 Other obesity; Note: Date Diagnosed : 04/04/2023 8:51 AM (E66.8) Not Available [facility] 4 03:10:04 Tinnitus of vascular origin 153687686 Active 2023 Pulsatile tinnitus, right ear; Note: Date Diagnosed : 04/04/2023 8:49 AM (H93.A1) Not Available [facility] 4 03:10:04 Sensorine ural hearing loss 11737620 Active 2023 Sensorine ural hearing loss, unilatera l, right ear, with unrestric jaswant hearing on the contralat eral side; Note: Date Diagnosed : 04/04/2023 9:26 AM (H90.41) Not Available [facility] 4 03:10:05 Abnormal auditory perceptio n 17350411 Active 2023 JOSE VELÁZQUEZ MD [address] [facility] [place] [address], [place], [address] , [facility] 4 21:49:47 Subjectiv e pulsatile tinnitus of right ear [id number] 65549 Active 2023 JOSE VELÁZQUEZ MD [address] [facility] [place],[facility], [place], [address] , [facility] - [facility] 4 21:53:02 Abnormal auditory perceptio n 96478856 Active 2023 JOSE VELÁZQUEZ MD 100 [facility], [place], [address] , [facility] - [facility] 4 09:14:23 Non-aller gic rhinitis 95609457579 1 Active 2023 Oh hernández [place] - [facility] 4 12:14:47 Seasonal allergic rhinitis 911916045 Active 2023 Oh hernández [place] - [facility] 4 12:14:47 Chronic sinusitis 07813664 Active 2023 Oh hernández [place] - [facility] 4 12:16:47 Polyp of nasal cavity 674891824 Active 2023 Oh hernández [place] - [facility] 4 12:17:03 Polypoid sinus degenerat ion 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 Procedures Surgical History Date Name Laterality Status Provider Name and Address Organization Details Recorded Time 06/14/19 25 Allergy Immunotherapy Injections completed JUAQUIN YAÑEZ RN 100 [facility],[address], [address], [place] - [facility] 06/13/2024 10:59:19 05/30/19 25 Allergy Immunotherapy Injections completed JUAQUIN YAÑEZ RN 100 [facility],[address], [address], [place] [facility] 05/29/2024 10:31:20 05/23/19 25 Allergy Immunotherapy Injections completed Isa Zaragoza [place] - [facility] 05/22/2024 09:24:53 05/16/19 25 Allergy Immunotherapy Injections completed VALORIE LUCIO, RMA [address], [place], [address], [place] [facility] 05/15/2024 12:04:32 05/09/19 25 Allergy Immunotherapy Injections completed KEN RASTAZEC, RMA [address], [place], [address], [place] [facility] 05/08/2024 09:54:06 05/01/19 25 Allergy Immunotherapy Injections completed KEN RASTAZEC, RMA [address], [place], [address], [place] [facility] 05/01/2024 10:21:08 04/23/19 25 Allergy Immunotherapy Injections completed VALORIE LUCIO RMA [address], [place], [address], [place] [facility] 04/23/2024 09:59:03 04/03/19 25 Allergy Immunotherapy Injections completed KEN AGRAWALC, RMA [address] [address], [address], [place] [facility] 04/03/2024 10:20:26 03/28/19 25 Allergy Immunotherapy Injections completed JUAQUIN YAÑEZ RN [address], [place], [address], [place] [facility] 03/28/2024 10:48:14 03/20/19 25 Allergy Immunotherapy Injections completed KEN NGHIAC, RMA [address] [address], [address], [place] [facility] 03/20/2024 09:23:24 03/13/19 25 Allergy Immunotherapy Injections completed KEN KORZEC, RMA [address], [place], [address], [place] [facility] 03/13/2024 11:58:51 03/08/19 25 Allergy Immunotherapy Injections completed KEN CARDENAS, RMA [address], [place], [address], [place] [facility] 03/08/2024 12:13:50 03/01/20 24 Allergy Immunotherapy Injections completed JUAQUIN YAÑEZ RN [address] [facility], [place], [address], [place] [facility] 03/01/2024 09:38:10 02/23/20 24 Allergy Immunotherapy Injections completed JUAQUIN YAÑEZ RN [address] [facility] [address], [place], [address], [place] [facility] 02/23/2024 10:01:24 02/14/20 24 Allergy Immunotherapy Injections completed KEN CARDENAS, RMKendell [address] [address], [address], [place] [facility] 02/14/2024 11:05:56 02/07/20 24 Allergy Immunotherapy Injections completed JUAQUIN YAÑEZ RN [address] [place] [address], [address], [place] [facility] 02/07/2024 10:14:23 02/03/20 24 Allergy Immunotherapy Injections completed SCOTTY RICE [address] [place] [address], [address], [place] [facility] 02/03/2024 09:34:55 01/24/20 24 Allergy Immunotherapy Injections completed JUAQUIN YAÑEZ RN [address] [place] [address], [address], [place] [facility] 01/24/2024 10:50:50 01/19/20 24 Allergy Immunotherapy Injections completed SCOTTY RICE [address] [address] [place] [address], [address], [place] [facility] 01/19/2024 13:18:23 01/10/20 24 Allergy Immunotherapy Injections completed SCOTTY RICE [address] [place] [address], [address], [place] [facility] 01/10/2024 09:42:22 01/03/20 24 Allergy Immunotherapy Injections completed JUAQUIN YAÑEZ RN [address], [place], [address], [place] [facility] 01/03/2024 11:08:00 12/29/19 24 Allergy Immunotherapy Injections completed VALORIE LUCIO, RMA [address], [place], [address], [place] [facility] 12/29/2023 09:38:54 12/21/19 24 Allergy Immunotherapy Injections completed KEN CARDENAS, RMA [address], [place], [address], [place] [facility] 12/21/2023 11:30:52 12/14/19 24 Allergy Immunotherapy Injections completed JUAQUIN YAÑEZ RN [address], [place], [address], [place] [facility] 12/14/2023 11:25:12 11/23/19 24 Allergy Immunotherapy Injections completed KEN CARDENAS, RMA [address], [place], [address], [place] [facility] 11/23/2023 10:31:13 11/17/19 24 Allergy Immunotherapy Injections completed KEN CARDENAS, RMA [address], [place], [address], [place] [facility] 11/17/2023 09:42:16 11/09/19 24 Allergy Immunotherapy Injections completed JUAQUIN YAÑEZ RN [address], [place], [address], [place] [facility] 11/09/2023 11:29:05 11/01/19 24 Allergy Immunotherapy Injections completed JUAQUIN YAÑEZ RN [address], [address], [place] [facility] 11/01/2023 10:43:38 10/27/19 24 Allergy Immunotherapy Injections completed KEN CARDENAS, RMA [address], [place], [address], [place] [facility] 10/27/2023 11:59:30 10/19/19 24 Allergy Immunotherapy Injections completed JUAQUIN YAÑEZ RN 100 [facility],[address], [address], [place] [facility] 10/19/2023 10:27:27 10/19/19 24 Air & Speech Audio with Tymps (70833, 51438 & 54872) completed DARRIUS OSMAN MA, CCC-A 100 [facility],[address], [address], [place] [facility] 10/19/2023 09:45:15 10/11/19 24 Allergy Immunotherapy Injections completed SCOTTY RICE 100 [facility],[address], [address], [place] [facility] 10/11/2023 09:44:13 10/04/19 24 Allergy Immunotherapy Injections completed KEN CARDENAS [place] 100 [facility],[address], [address], [place] [facility] 10/04/2023 12:12:37 09/27/19 24 Allergy Immunotherapy Injections completed JUAQUIN YAÑEZ RN 100 [facility],[address], [address], [place] [facility] 09/27/2023 10:51:29 09/20/19 24 Allergy Immunotherapy Injections completed JUAQUIN YAÑEZ RN 100 [facility],[address], [address], [place] [facility] 09/20/2023 10:20:29 09/13/19 24 Allergy Immunotherapy Injections completed SCOTTY RICE [address] [facility] [address], [address], [place] [facility] 09/13/2023 12:56:00 09/05/19 24 Allergy Immunotherapy Injections completed JUAQUIN YAÑEZ RN 100 [facility],[address], [address], [place] [facility] 09/05/2023 09:56:55 08/31/19 24 Allergy Immunotherapy Injections completed SCOTTY RICE 100 [facility],[address], [address], [facility] - [facility] 08/31/2023 09:14:03 08/23/19 24 Allergy Immunotherapy Injections completed KEN AGRAWALC, RMA [address] [place] [address], [address], [facility] - [facility] 08/23/2023 09:35:11 08/17/19 24 Allergy Immunotherapy Injections completed KEN RASTAZEC, RMA [address] [facility] [place],[address], [address], [facility] - [facility] 08/17/2023 10:13:24 08/10/19 24 Allergy Immunotherapy Injections completed KEN MAGDALENOLEANAC, RMA [address] [facility] [place] [address] [place] [address], [address], [facility] - [facility] 08/10/2023 11:14:06 08/03/19 24 Allergy Immunotherapy Injections completed JUAQUIN YAÑEZ RN 100 [facility],[address], [address], [facility] - [facility] 08/03/2023 10:25:33 07/27/19 24 Allergy Immunotherapy Injections completed KEN RASTALEANAC, RMA [address] [facility] [place],[address], [address], [facility] - [facility] 07/27/2023 10:39:49 07/21/19 24 Allergy Immunotherapy Injections completed [facility], RMA [address] [facility] [place],[address], [address], [facility] 07/21/2023 10:29:54 Imaging Results None recorded. Procedure Notes None recorded. Medical Equipment None Reported. Allergies Allergen ID Allergen Name Allergen Category Reaction Reaction Severity Criticality Documentation Date Start Date Code Code System Note Provider Name and Address Organization Details Recorded Time [id number] oxycodone medicatio n Not available Not available Not available 07/19/2023 7804 RxNorm React ion: Dizzi ness, Abdom inal pain, Weakn ess; Not Available [facility] 01:20:52 192001 lactose Not available diarrhea Not available Not available 07/19/2023 6211 RxNorm React ion: Diarr hea; Not Available [facility] 4 01:20:53 Medications Name Sig Start Date [...] mg tablet 09/08 completed Medicati on ID: [id number] B rand Name: dwight hill Send Method: [...] Multi-Vit schaefer tablet active Medicati on ID: [id number] B rand Name: Daily Multi-Vi tamin Se [...] (7) tablet 09/08 completed Medicati on ID: [id number] B rand Name: Jenise Fe 03/26 () [...] by Organization Details LastModified Time Mother Asthma [id number] Not availab le 04/23/2024 09:21:21 Sister Asthma [email or web address] Not availab le 04/23/2024 09:21:21 Sister Complication of anesthesia [id number] Not available 09:21:21 Sister Allergy to food [...] SNOMED-CT Code Diagnosis ICD10 Code Diagnosis Note [id number] Isa Birminghamman [facility] [address] [place] [address], [address] [place] [address] 05/15/2024 12:02:41 05/15/2024 12:06:39 Perennial allergic rhinitis [id number] J30.89 [id number] VALORIE LUCIO [facility] [address] [place] [address], [address] [place] [address] 05/22/2024 09:23:27 05/22/2024 09:30:49 Perennial allergic rhinitis [id number] J30.89 13288 JUAQUIN YÑAEZ RN Allergy [address] [place] [address], [address] [place] [address] 05/29/2024 10:30:47 05/29/2024 10:31:45 Perennial allergic rhinitis [id number] J30.89 15118 JUAQUIN YAÑEZ RN Allergy [address] [place] [address],[place] [address] [place] [address] 06/13/2024 10:52:10 06/13/2024 10:59:44 Perennial allergic rhinitis [id number] J30.89 Health Concerns Section Related Observation LastModified by Organization Detai ls LastModified Time None Recorded Concern Status LastModified by Organization Details LastModified Time None Recorded Payers Encounter Date Sequence Insurance Name Policy Number Policy Rohce Covered Member ID Roche Member ID Guarantor Name 06/13/2024 1 KETAN: [facility] [id number] Shelia Fitzgerald [id number] Shelia Fitzgerald OBGyn Episode No OBEpisode recorded.
--- OUTSIDE RECORDS SUMMARY | 2024-06-18 23:59 | XMS_ITS | Clinical Summary ---
Author Organization 175 [facility] Address [address] [place] [address] Phone Care Team Providers Care Central Supply Clerk Name Role Phone Bonnie Ahn MD Primary Care Provider [phone] Allergies Active Allergy Reactions Criticality Noted Date [...] EST Office Visit Bariatric Surgery - [address] [place] [address] Radha West MD Obesity, Class [...] HISTORY PROCEDURE: ARTHROSCOPY PROCEDURE NEC SECTION PROCEDURE: [place] DELIVERY ONLY OTHER SURGICAL HISTORY PROCEDURE: HISTORY OTHER; COMMENT: surgery for blood clot. Medical History Medical History Date Comments History of bariatric surgery 08/19/2017 DX: History of bariatric surgery; COMMENT: 02/23/2017 Laparoscopic sleeve gastrectomy, Dr. West Achalasia 08/19/2017 DX:Achalasia Morbid obesity with BMI of 45.0-49.9, adult (CMS/[facility] V24, [facility] V28) 08/19/2017 DX:Morbid obesity with BMI o f 45.0-49.9, adult ([facility]) Family History Medical History Relation Name Comments [...] AM EDT Office Visit Bariatric Surgery - [place] [address] [address] Radha West MD [address] [address] Health Maintenance Due Date Last Done Comments [...] to complete this topic Insurance Care Teams Central Supply Clerk Relationship Specialty Start Date End Date Bonnie Ahn MD [address] [place] [address] , [address] Physician Associ D/B/A: [facility] ESTEFANÍA Larson PCP - General Internal Medicine 03/29/19
--- OUTSIDE RECORDS SUMMARY | 2024-06-18 23:59 | XMS_ITS | Data Portability ---
Author Organization [place] - [facility], Allergy Address [address] [address] Care Team Providers Care [facility] Former Name Role Phone TOD JENKINS Primary Care Provider [phone] Assessment Encounter Date Assessment Date Assessment LastModified [...] Aware of Vial Test Notes:? ? ? [email or web address] Not available 05/15/2024 12:04:54 05/22/2024 05/22/2024 Visit [...] Time Details Appointments [facility]- Allergy f-up 6mon 2024 10:30A [...] Organization Details Recorded Time Achalasia of esophagus 41655704 Active 2022 Achalasia NOS; Note: Date Diagnosed : 06/23/2022 2:49 PM (K22.0) Not Available [facility] 4 03:10:05 Respirato ry finding 591886000 Active 2022 Feeling of foreign body in throat; Note: Date Diagnosed : 06/23/2022 2:49 PM (R09.89) Not Available [facility] 4 03:10:05 Cardiovas cular finding 673037169 Active 2022 Feeling of foreign body in throat; Note: Date Diagnosed : 06/23/2022 2:49 PM (R09.89) Not Available [facility] hospital 4 03:10:05 Posterior rhinorrhe a 59048281 Active 2022 Postnasal drip; Note: Date Diagnosed : 06/23/2022 2:49 PM (R09.82) Not Available Critical access hospital 4 03:10:04 Allergic rhinitis 86340780 Active 2023 Allergic rhinitis: Due to other [...] 1:19 PM (477.8) ; Start Date : Allergi [...] 9:20 AM (477.8) ; Start Date : Allergi c rhinitis: Due to other allergen; Note: Date Diagnosed : 10:04 AM (477.8) Note: Date Diagnosed : 10:04 AM (477.8) ; Start Date : Allergi c rhinitis: Due to other allergen; Note: Date Diagnosed : 01/11/2023 10:16 AM (477.8) Note: Date Diagnosed : 01/11/2023 10:16 AM (477.8) ; Start Date : Allergi c rhinitis: Due to other allergen; Note: Date Diagnosed : 01/06/2023 10:27 AM (477.8) Note: Date Diagnosed : 01/06/2023 10:27 AM (477.8) ; Start Date : Allergi c rhinitis: Due to other allergen; Note: Date Diagnosed : 1:12 PM (477.8) Note: Date Diagnosed : 1:12 PM (477.8) ; Start Date : Allergi c rhinitis: Due to other allergen; Note: Date Diagnosed : 9:56 AM (477.8) Note: Date Diagnosed : 9:56 AM (477.8) ; Start Date : Allergi [...] Health System 4 01:25:32 Deviated nasal septum 820862269 Active 2022 Deviated nasal septum; Note: Date Diagnosed : 06/23/2022 2:49 PM (J34.2) Not Available [facility] 4 03:10:04 Perennial allergic rhinitis 484141685 Active 2023 KEN NGHIA, A 100 [facility] 100, [place], [address] , [place] [facility] 4 10:29:26 Snoring 16651053 Active 2023 Snoring; Note: Date Diagnosed : 04/04/2023 8:51 AM (R06.83) Not Available [facility] 4 03:10:03 Obesity 164184499 Active 2023 Other obesity; Note: Date Diagnosed : 04/04/2023 8:51 AM (E66.8) Not Available [facility] 4 03:10:04 Tinnitus of vascular origin 746256008 Active 2023 Pulsatile tinnitus, right ear; Note: Date Diagnosed : 04/04/2023 8:49 AM (H93.A1) Not Available [facility] 4 03:10:04 Sensorine ural hearing loss 27524996 Active 2023 Sensorine ural hearing loss, unilatera l, right ear, with unrestric jaswant hearing on the contralat eral side; Note: Date Diagnosed : 04/04/2023 9:26 AM (H90.41) Not Available [facility] 4 03:10:05 Abnormal auditory perceptio n 85913629 Active 2023 JOSE VELÁZQUEZ MD 100 [facility],[place] 100, [place], [address] , [place] - [facility] 4 21:49:47 Subjectiv e pulsatile tinnitus of right ear [id number] 77236 Active 2023 JOSE VELÁZQUEZ MD 100 [facility],[place] 100, [facility] [place] [place], [address] , [facility] - [facility] 4 21:53:02 Abnormal auditory perceptio n 54417678 Active 2023 JOSE VELÁZQUEZ MD 100 [facility],[place] 100, [facility] [place], [address] , [facility] - [facility] 4 09:14:23 Non-aller gic rhinitis 21813826331 1 Active 2023 Oh hernández [place] - [facility] 4 12:14:47 Seasonal allergic rhinitis 366852561 Active 2023 Oh hernández [place] - [facility] 4 12:14:47 Chronic sinusitis 83467463 Active 2023 Oh hernández [place] - [facility] 4 12:16:47 Polyp of nasal cavity 954959540 Active 2023 Oh hernández [place] - [facility] 4 12:17:03 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 Procedures Surgical History Date Name Laterality Status Provider Name and Address Organization Details Recorded Time 06/14/19 25 Allergy Immunotherapy Injections completed JUAQUIN YAÑEZ RN 100 [facility],[address] [address], [place], [address], [facility] - [facility] 06/13/2024 10:59:19 05/30/19 25 Allergy Immunotherapy Injections completed JUAQUIN YAÑEZ RN 100 [facility],[place] [place] [address], [place], [address], [facility] - [facility] 05/29/2024 10:31:20 05/23/19 25 Allergy Immunotherapy Injections completed Isa Zaragoza [place] - [facility] 05/22/2024 09:24:53 05/16/19 25 Allergy Immunotherapy Injections completed KIAH KHADIJAH, RMA [address],[place] [address], [place], [address], [place] [facility] 05/15/2024 12:04:32 05/09/19 25 Allergy Immunotherapy Injections completed KEN KORZEC, RMA [address],[place] [address], [place], [address], [place] [facility] 05/08/2024 09:54:06 05/01/19 25 Allergy Immunotherapy Injections completed KEN KORZEC, RMA [address],[place] [address], [place], [address], [place] [facility] 05/01/2024 10:21:08 04/23/19 25 Allergy Immunotherapy Injections completed KIAH LUCIO RMA [address],[place] [address], [place], [address], [place] [facility] 04/23/2024 09:59:03 04/03/19 25 Allergy Immunotherapy Injections completed KEN KORZEC, RMA [address],[place] [address], [place], [address], [place] [facility] 04/03/2024 10:20:26 03/28/19 25 Allergy Immunotherapy Injections completed JUAQUIN YAÑEZ RN 100 [facility],[place] [address] [place] [address], [address], [place] [facility] 03/28/2024 10:48:14 03/20/19 25 Allergy Immunotherapy Injections completed KEN KORZEC, RMA [address],[place] [address] [place] [address], [address], [facility] - [facility] 03/20/2024 09:23:24 03/13/19 25 Allergy Immunotherapy Injections completed KEN KORZEC, RMA [address],[place] [address], [place], [address], [place] [facility] 03/13/2024 11:58:51 03/08/19 25 Allergy Immunotherapy Injections completed KEN KORZEC, RMA [address],[place] [address], [place], [address], [place] [facility] 03/08/2024 12:13:50 03/01/20 24 Allergy Immunotherapy Injections completed JUAQUIN YAÑEZ RN [address],[place] [address], [place], [address], [place] [facility] 03/01/2024 09:38:10 02/23/20 24 Allergy Immunotherapy Injections completed JUAQUIN YAÑEZ RN [address] [facility],[place] [address], [place], [address], [place] [facility] 02/23/2024 10:01:24 02/14/20 24 Allergy Immunotherapy Injections completed SCOTTY GUTHRIE [address] [facility] [address],[place] [address], [place], [address], [place] [facility] 02/14/2024 11:05:56 02/07/20 24 Allergy Immunotherapy Injections completed JUAQUIN YAÑEZ RN 100 [facility],[place] [address] [place] [address], [address], [place] [facility] 02/07/2024 10:14:23 02/03/20 24 Allergy Immunotherapy Injections completed SCOTTY RICE [address] [facility],[place] [address] [place] [address], [address], [place] [facility] 02/03/2024 09:34:55 01/24/20 24 Allergy Immunotherapy Injections completed JUAQUIN YAÑEZ RN 100 [facility],[place] [address] [place] [address], [address], [place] [facility] 01/24/2024 10:50:50 01/19/20 24 Allergy Immunotherapy Injections completed SCOTTY RICE [address] [facility],[place] [address] [place] [address], [address], [place] [facility] 01/19/2024 13:18:23 01/10/20 24 Allergy Immunotherapy Injections completed SCOTTY RICE [address] [facility],[place] [address] [place] [address], [address], [place] [facility] 01/10/2024 09:42:22 01/03/20 24 Allergy Immunotherapy Injections completed JUAQUIN YAÑEZ RN [address] [facility],[place] [address] [place] [address], [address], [place] [facility] 01/03/2024 11:08:00 12/29/19 24 Allergy Immunotherapy Injections completed SCOTTY RICE [address],[place] [address], [place], [address], [place] [facility] 12/29/2023 09:38:54 12/21/19 24 Allergy Immunotherapy Injections completed KEN CARDENAS, RMA [address],[place] [address], [place], [address], [place] [facility] 12/21/2023 11:30:52 12/14/19 24 Allergy Immunotherapy Injections completed JUAQUIN YAÑEZ RN [address] [facility],[place] [address], [place], [address], [place] [facility] 12/14/2023 11:25:12 11/23/19 24 Allergy Immunotherapy Injections completed KEN CARDENAS, RMKendell [address] [facility],[place] [address], [place], [address], [place] [facility] 11/23/2023 10:31:13 11/17/19 24 Allergy Immunotherapy Injections completed KEN CARDENAS RMKendell 100 [facility],[place] [address] [place] [address], [address], [place] [facility] 11/17/2023 09:42:16 11/09/19 24 Allergy Immunotherapy Injections completed JUAQUIN YAÑEZ RN 100 [facility],[place] [address] [place] [address], [address], [place] [facility] 11/09/2023 11:29:05 11/01/19 24 Allergy Immunotherapy Injections completed JUAQUIN YAÑEZ RN 100 [facility],[place] [address] [place] [address], [address], [place] [facility] 11/01/2023 10:43:38 10/27/19 24 Allergy Immunotherapy Injections completed KEN CARDENAS RMA [address] [facility],[place] [address], [place], [address], [place] [facility] 10/27/2023 11:59:30 10/19/19 24 Allergy Immunotherapy Injections completed JUAQUIN YAÑEZ RN [address] [facility],[place] [address] [place] [address], [address], [place] [facility] 10/19/2023 10:27:27 10/19/19 24 Air & Speech Audio with Tymps (08453, 44697 & 89922) completed DARRIUS OSMAN [place], CCC-A [address] [facility],[place] [address] [place] [address], [address], [place] [facility] 10/19/2023 09:45:15 10/11/19 24 Allergy Immunotherapy Injections completed SCOTTY RICE [address] [facility],[place] [address] [place] [address], [address], [place] [facility] 10/11/2023 09:44:13 10/04/19 24 Allergy Immunotherapy Injections completed KEN CARDENAS RMKendell [address] [facility],[place] [address] [place] [address], [address], [place] [facility] 10/04/2023 12:12:37 09/27/19 24 Allergy Immunotherapy Injections completed JUAQUIN YAÑEZ RN 100 [facility],[address], [address], [place] [facility] 09/27/2023 10:51:29 09/20/19 24 Allergy Immunotherapy Injections completed JUAQUIN YAÑEZ RN [address] [facility] [address],[place] [address] [place] [address], [address], [place] [facility] 09/20/2023 10:20:29 09/13/19 24 Allergy Immunotherapy Injections completed SCOTTY RICE [address] [facility],[place] [address] [place] [address], [address], [place] [facility] 09/13/2023 12:56:00 09/05/19 24 Allergy Immunotherapy Injections completed JUAQUIN YAÑEZ RN [address] [facility],[place] [address] [place] [address], [address], [place] [facility] 09/05/2023 09:56:55 08/31/19 24 Allergy Immunotherapy Injections completed SCOTTY RICE [address] [facility],[place] [address] [place] [address], [address], [place] [facility] 08/31/2023 09:14:03 08/23/19 24 Allergy Immunotherapy Injections completed KEN CARDENAS RMKendell [address] [facility],[place] [address] [place] [address], [address], [place] [facility] 08/23/2023 09:35:11 08/17/19 24 Allergy Immunotherapy Injections completed KEN AGRAWALC, RMA 100 [facility],[address], [address], [facility] - [facility] 08/17/2023 10:13:24 08/10/19 24 Allergy Immunotherapy Injections completed KEN RASTAZEC, RMA 100 [facility],[address], [address], [facility] - [facility] 08/10/2023 11:14:06 08/03/19 24 Allergy Immunotherapy Injections completed JUAQUIN YAÑEZ RN 100 [facility],[address], [address], [facility] - [facility] 08/03/2023 10:25:33 07/27/19 24 Allergy Immunotherapy Injections completed KEN MAGDALENOZEC, RMA 100 [facility],[address], [address], [facility] - [facility] 07/27/2023 10:39:49 07/21/19 24 Allergy Immunotherapy Injections completed KEN NGHIAC, RMA 100 [facility],[address], [address], [facility] - [facility] 07/21/2023 10:29:54 Imaging Results None recorded. Procedure Notes None recorded. Medical Equipment None Reported. Allergies Allergen ID Allergen Name Allergen Category Reaction Reaction Severity Criticality Documentation Date Start Date Code Code System Note Provider Name and Address Organization Details Recorded Time 556875 oxycodone medicatio n Not available Not available Not available 07/19/2023 7804 RxNorm React ion: Dizzi ness, Abdom inal pain, Weakn ess; Not Available Critical access hospital 4 01:20:52 948870 lactose Not available diarrhea Not available Not [...] mg tablet 09/08 completed Medicati on ID: [id number] Tyesha narayanan Name: dwight hill Send Method: [...] Multi-Vit schaefer tablet active Medicati on ID: [id number] B rand Name: Daily Multi-Vi tamin Se [...] (7) tablet 09/08 completed Medicati on ID: [id number] B rand Name: Jenise Fe 03/26 () [...] by Organization Details LastModified Time Mother Asthma [id number] Not availab le 04/23/2024 09:21:21 Sister Asthma [id number] Not availab le 04/23/2024 09:21:21 Sister Complication of anesthesia [email or web address] Not available 09:21:21 Sister Allergy to food [email or web address] Not available 09:21:21 Medical History Condition Response [...] Diagnosis Note [id number] JOSE VELÁZQUEZ MD Allergy [address] [place] [address] ite 100 [facility] [place] [address] 07/21/2023 10:01:06 07/22/2023 13:03:52 Perennial allergic rhinitis [id number] J30.89 [id number] JOSE VELÁZQUEZ MD Allergy [address] [place] [address] ite 100 [place] [address] 07/27/2023 10:17:14 07/27/2023 11:20:05 Perennial allergic rhinitis [id number] J30.89 1806 JUAQUIN YAÑEZ RN Allergy [address] [place] [address] ite 100 [place] [address] 08/03/2023 10:24:55 08/03/2023 13:01:24 Perennial allergic rhinitis [id number] J30.89 [id number] KEN AGRAWAL [facility] Allergy [address] [place] [address] ite [address] [place] [address] 08/10/2023 10:49:51 08/10/2023 11:19:10 Perennial allergic rhinitis [id number] J30.89 3726 KEN CARDENAS [facility] Allergy [address] [place] [address],[place] ite 100 [facility] [place] [address] 08/17/2023 09:07:38 08/17/2023 11:14:32 Perennial allergic rhinitis 839005915 J30.89 4459 [facility], RMA Allergy 100 [facility],[place] it[address] [place] [address] 08/23/2023 09:03:10 08/23/2023 13:26:57 Perennial allergic rhinitis 053875699 J30.89 5606 KIAH LUCIO, [facility] Allergy 100 [facility],[place] [address] [place] [address] 08/31/2023 08:49:58 08/31/2023 11:02:35 Perennial allergic rhinitis 945078965 J30.89 6153 JUAQUIN YAÑEZ RN Allergy [address] [place] [address],[place] it[address] [place] [address] 09/05/2023 08:46:12 09/05/2023 10:03:05 Perennial allergic rhinitis [id number] J30.89 7075 KIAH LUCIO, [facility] Allergy [address] [place] [address],[place] [address] [place] [address] 09/13/2023 08:41:30 09/13/2023 14:37:18 Perennial allergic rhinitis [id number] J30.89 8018 JUAQUIN YAÑEZ RN Allergy [address] [place] [address],[place] [address] [place] [address] 09/20/2023 10:16:20 09/21/2023 13:05:24 Perennial allergic rhinitis [id number] J30.89 9049 JUAQUIN YAÑEZ RN Allergy [address] [place] [address],[place] it[address] [place] [address] 09/27/2023 09:14:35 09/27/2023 10:52:56 Perennial allergic rhinitis [id number] J30.89 [id number] [facility], A Allergy 100 [facility],[place] [address] [place] [address] 10/04/2023 12:11:42 10/04/2023 12:14:07 Perennial allergic rhinitis [id number] J30.89 [id number] KIAH LUCIO, [facility] Allergy [address] [place] [address],[place] [address] [place] [address] 10/11/2023 09:43:29 10/11/2023 11:09:54 Perennial allergic rhinitis 872273089 J30.89 [id number] JOSE VELÁZQUEZ MD [facility] [address] [place] [address] 10/19/2023 09:06:55 10/19/2023 10:05:09 Allergic rhinitis 19375539 J30.9 Doing well with immunother apy. EpiPen up-to-date . Abnormal a uditory perception 38583635 H93.291 Audio bilateral SNHL--stab le Subjective pulsatile tinnitus of right ear [id number] 903133 H93.A1 Previous MRA was negative. Deviated nasal septum 12 6360803 J34.2 mild Sensorineu ral hearing loss 87879258 H90.41 10-19-2023 udiologica l evaluation results: Right [...] Cou ld not maintain a hermetic seal}} [id number] JUAQUIN YAÑEZ RN Allergy 100 [facility],[place] [address] [place] [address] 10/19/2023 10:26:27 10/19/2023 10:27:52 Perennial allergic rhinitis [id number] J30.89 [id number] KEN NGHIA, RMA Allergy 100 [facility],[place] [address] [place] [address] 10/27/2023 09:20:07 10/27/2023 13:21:33 Perennial allergic rhinitis [id number] J30.89 [id number] JUAQUIN YAÑEZ RN Allergy [address] [place] [address],[place] [address] [place] [address] 11/01/2023 10:42:48 11/01/2023 10:44:36 Perennial allergic rhinitis [id number] J30.89 [id number] JUAQUIN YAÑEZ RN Allergy [address] [place] [address],[place] [address] [place] [address] 11/09/2023 11:26:12 11/09/2023 11:29:30 Perennial allergic rhinitis [id number] J30.89 [id number] [facility] Allergy [address] [place] [address],[place] it[address] [place] [address] 11/17/2023 09:40:52 11/17/2023 11:43:31 Perennial allergic rhinitis 698320191 J30.89 [id number] JUAQUIN YAÑEZ RN Allergy [address] [place] [address],[place] it[address] [place] [address] 11/23/2023 10:27:55 11/23/2023 10:32:23 Perennial allergic rhinitis 855173153 J30.89 [id number] JUAQUIN YAÑEZ RN Allergy [address] [place] [address],[place] it[address] [place] [address] 12/14/2023 11:23:54 12/14/2023 11:25:34 Perennial allergic rhinitis [id number] J30.89 11360 [facility], [facility] Allergy 100 [facility],[place] it[address] [place] [address] 12/21/2023 11:30:12 12/21/2023 11:31:30 Perennial allergic rhinitis [id number] J30.89 [id number] KIAH LUCIO, [facility] Allergy [address] [place] [address],[place] it[address] [place] [address] 12/29/2023 09:38:10 12/29/2023 09:40:16 Perennial allergic rhinitis [id number] J30.89 [id number] JUAQUIN YAÑEZ RN Allergy [address] [place] [address],[place] it[address] [place] [address] 01/03/2024 11:06:53 01/03/2024 11:08:17 Perennial allergic rhinitis [id number] J30.89 [id number] KIAH LUCIO, [facility] Allergy [address] [place] [address],[place] it[address] [place] [address] 01/10/2024 09:41:40 01/10/2024 09:42:52 Perennial allergic rhinitis [id number] J30.89 [id number] KIAH LUCIO [facility] Allergy [address] [place] [address],[place] [address] [place] [address] 01/19/2024 13:16:02 01/19/2024 13:20:09 Perennial allergic rhinitis [id number] J30.89 [id number] JUAQUIN YAÑEZ RN Allergy [address] [place] [address],[place] [address] [place] [address] 01/24/2024 10:49:50 01/24/2024 10:52:32 Perennial allergic rhinitis [id number] J30.89 11263 KIAH LUCIO, [facility] Allergy [address] [place] [address],[place] [address] [place] [address] 02/03/2024 09:25:49 02/03/2024 09:35:31 Perennial allergic rhinitis [id number] J30.89 [id number] JUAQUIN YAÑEZ RN Allergy [address] [place] [address],[place] [address] [place] [address] 02/07/2024 10:13:39 02/07/2024 10:14:50 Perennial allergic rhinitis [id number] J30.89 [id number] KEN CARDENAS, A Allergy 100 [facility],[place] [address] [place] [address] 02/14/2024 11:05:15 02/14/2024 11:06:25 Perennial allergic rhinitis [id number] J30.89 [id number] JUAQUIN AYÑEZ RN Allergy [address] [place] [address],[place] [address] [place] [address] 02/23/2024 10:00:14 02/23/2024 10:01:52 Perennial allergic rhinitis [id number] J30.89 [id number] JUAQUIN YAÑEZ RN Allergy [address] [place] [address],[place] [address] [place] [address] 03/01/2024 09:37:35 03/01/2024 09:38:44 Perennial allergic rhinitis [id number] J30.89 [id number] [facility], A Allergy 100 [facility],[place] [address] [place] [address] 03/08/2024 12:13:01 03/08/2024 12:14:59 Perennial allergic rhinitis [id number] J30.89 [id number] [facility], A Allergy [address] [place] [address],[place] it[address] [place] [address] 03/13/2024 11:57:35 03/13/2024 11:59:25 Perennial allergic rhinitis [id number] J30.89 [id number] [facility], [facility] Allergy [address] [place] [address],[place] [address] [place] [address] 03/20/2024 09:19:50 03/20/2024 09:23:46 Perennial allergic rhinitis [id number] J30.89 [id number] JUAQUIN YAÑEZ RN Allergy [address] [place] [address],[place] [address] [place] [address] 03/28/2024 10:20:37 03/28/2024 10:48:37 Perennial allergic rhinitis [id number] J30.89 [id number] [facility], [facility] Allergy [address] [place] [address],[address] [place] [address] 04/03/2024 10:19:02 04/03/2024 10:20:47 Perennial allergic rhinitis [id number] J30.89 [id number] JOSE VELÁZQUEZ MD [facility] - [place] [address] [facility] [place] [address] 04/23/2024 09:16:11 04/23/2024 09:38:20 Allergic rhinitis [id number] J30.89 Doing well with immunother apy. New Epipen prescribed [id number] KIAH LUCIO [facility] Allergy [address] [facility],[address] [place] [address] 04/23/2024 09:58:15 04/23/2024 09:59:52 Perennial allergic rhinitis [id number] J30.89 [id number] KEN AGRAWAL, A Allergy [address] [facility],[address] [place] [address] 05/01/2024 10:16:09 05/01/2024 10:21:59 Perennial allergic rhinitis [id number] J30.89 [id number] KEN AGRAWAL, A Allergy [address] [facility] [facility] [address] [place] [address] 05/08/2024 09:53:32 05/08/2024 09:54:40 Perennial allergic rhinitis [id number] J30.89 [id number] Isa Zaragoza [facility] [address] [place] [address], [address] [place] [address] 05/15/2024 12:02:41 05/15/2024 12:06:39 Perennial allergic rhinitis [id number] J30.89 [id number] KIAH LUCIO [facility] [address] [facility],[address] [place] [address] 05/22/2024 09:23:27 05/22/2024 09:30:49 Perennial allergic rhinitis [id number] J30.89 [id number] JUAQUIN YAÑEZ RN [facility] [address] [place] [address], [address] [place] [address] 05/29/2024 10:30:47 05/29/2024 10:31:45 Perennial allergic rhinitis [id number] J30.89 [id number] JUAQUIN YAÑEZ RN [facility] [address] [place] [address], [address] [place] [address] 06/13/2024 10:52:10 06/13/2024 10:59:44 Perennial allergic rhinitis [id number] J30.89 Health Concerns Section Related Observation LastModified by Organization Detai ls LastModified Time None Recorded Concern Status LastModified by Organization Details LastModified Time None Recorded Advance Directives Directive None Recorded Payers Encounter Date Sequence Insurance Name Policy Number Policy Roche Covered Member ID Roche Member ID Guarantor Name 05/08/2024 1 [place] [facility] [id number] Shelia Haya [id number] Shelia Haya 05/15/2024 1 [place] [facility] ([facility] [id number] Shelia Haya [id number] Shelia Haya 05/22/2024 1 [place] [employer] [place] [facility]) [id number] Shelia Haya [id number] Sehlia Haya 05/29/2024 1 [place] [employer] [place] [facility] [id number] Shelia Haya [id number] Shelia Haya 06/13/2024 1 [place] [employer] [place] [facility] [id number] Shelia Haya [id number] Shelia Haya OBGyn Episode No OBEpisode recorded.
[2024-06-19 00:42] LABS: HCG Quantitative < 2 mIU/mL
[2024-06-19] MEDS: Pantoprazole Sodium 40 MG/10 ML VIAL IVPUSH (01:26)
[2024-06-19] MEDS: ondansetron HCL 4 MG/2 ML VIAL IVPUSH (01:26)
[2024-06-19] MEDS: 0.9 % Sodium Chloride 1,000 ML 999 ML IV (01:29)
[2024-06-19] MEDS: Lidocaine HCl Viscous 2 % 15 ML SOLUTION MUCOUS MEM (01:32)
[2024-06-19 02:15] VITALS: BP 121/63; PULSE 65; RESP 16; TEMP 36.8; O2SAT 100
[2024-06-19 03:11] VITALS: BP 121/63; PULSE 65; RESP 16; TEMP 36.8; O2SAT 100
== END 2024-06-19 03:20 | disposition home or self-care (01) ==
PROVIDERS: Physician Assistant Medical; Emergency Provider Internal Medicine; PCP Internal Medicine
DX: K20.90 Esophagitis, unspecified without bleeding (principal); R11.0 Nausea; Z03.818 Encounter for observation for suspected exposure to other biological agents ruled out; Z79.899 Other long term (current) drug therapy
CPT/HCPCS: 0241U; 36415; 80053; 83690; 83735; 84702; 85025; 96361; 96374; 96375; 99284; J2405; J2470

== ENCOUNTER 2024-07-02 10:41 | Outpatient (AMB) | payer BC, SELFPAY ==
--- NOTE | 2024-07-02 11:06 | A.OFFVIS_ITS ---
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 Allergies lactose Allergy (Intermediate, Verified 07/02/24 11:09) diarrhea oxycodone Adverse Reaction (Mild, Verified 07/02/24 11:09) Vomiting, stomach pain Medication List - Last Reconciled 07/02/24 by Jennifer Erickson LPN apixaban (Eliquis) 2.5 mg PO BID betamethasone dipropionate 0.05% 1 appl topical BID PRN 2 weeks bupropion HCl XL 150 mg PO DAILY cyclobenzaprine 10 mg PO TID PRN 30 days epinephrine (EpiPen) 0.3 mg IM Q4H PRN ferrous sulfate (Feosol) 325 mg PO DAILY levothyroxine 25 mcg PO QAM 90 days multivitamin 1 tab PO DAILY omeprazole 20 mg PO BID topiramate 100 mg PO DAILY tramadol 50 mg PO DAILY PRN 30 days HPI HPI Unilateral primary osteoarthritis, left knee: Details: History of Present Illness The patient is a 54-year-old female presenting with chronic left knee pain. The pain is associated with a valgus deformity of the left knee, noticed as bumping of knees when walking, confirmed on x-ray. The patient has a history of osteoarthritis in the knee with [id number]-[id number] changes in the lateral compartment. Previous treatments including physical therapy and cortisone injections have been ineffective. There is significant pain and disability associated with walking due to the medial knee pain. The knee pain has been impactful enough to affect mobility, described as falling. Patient reported that therapies like gel injections and peripheral nerve stimulation were not insurance covered. There?s consideration for a PRP injection, which could address pain and inflammation, but it is an ckt-ib-[id number] expense. Pain Description - Onset: Chronic; exact onset not specified. - Quality: Described as bumping sensation in the medial knee. - Primary Location: Left knee; medial compartment. - Exacerbating Factors: Walking causes the knees to bump, consistent with a valgus deformity. - Relieving Factors: Occasional relief from bracing. - Interference: Significant impairment of mobility, concerns about stability and falling. Physical Exam - Musculoskeletal- Valgus deformity observed in left knee. Results - X-ray confirmed valgus deformity with mymz-jj-hsch changes in the lateral compartment of the left knee. Pain Management - Affect: Pain causing distress due to impact on mobility and daily activities. - Analgesia: Previous cortisone injections provided no relief. - Adverse Effects: None reported from current treatments. - Activities of Daily Living: Pain significantly interferes with walking and mobility. - Aberrant Drug Related Behaviors: None reported. [facility] Medical History Deep vein thrombosis (07/28/22) Obesity (BMI 35.0-39.9 without comorbidity) Class 1 obesity with body mass index (BMI) of 34.0 to 34.9 in adult Thrombocytopenia Pancytopenia Osteoarthritis of left knee Hypovitaminosis D Toenail deformity Left shoulder pain Constipation by delayed colonic transit Hypothyroidism Surgical History History of esophagogastroduodenoscopy (EGD) H/O colonoscopy H/O gastric sleeve Venous insufficiency of left leg History of surgery History of cholecystectomy History of arthroscopy of left knee History of section Family History Father Diabetes CVD (cardiovascular disease) Myocardial infarction Mother CVD (cardiovascular disease) Hypertension Maternal Grandmother No problems noted. Maternal Grandfather Prostate cancer Family/Other Mental health disorder Social History Household Members: Spouse and Children Housing: House Are you a primary customer care assistant to a significant other at home: No Do you presently have visiting nurse or other home services: No Alcohol intake: never Comment: S3 Patient Tobacco Use Status: Never used Tobacco e-Cigarette/Vaping Use: Never Used Second Hand Smoke Exposure: No service: No Current occupational status: employed Current occupational exposures/hazards: No Cognitive needs: No Hearing needs: No Vision needs: Yes Physical Exam Vital Signs: Last Vital Signs Pulse 61 07/02/24 11:07 Resp 16 07/02/24 11:07 BP 116/61 07/02/24 11:07 Pulse Ox 100 07/02/24 11:07 Oxygen Delivery Method Room Air 07/02/24 11:07 BMI result Body Mass Index 31.8 Assessment & Plan Assessment & Plan (1) Left knee pain: Code(s): M25.562 - Pain in left knee Category: Medical Plan Plan - Evaluate bracing and orthotic options to correct limb alignment and provide symptomatic relief - Continue considering knee replacement in the future but may delay at this time per current guidance in favor of therapies such as PRP since MCGOVERN/PNS are not covered by her insurance Patient was informed and verbally consented to the use of an ambient scribe for clinic note documentation during this visit. Discussion Notes During today's consultation, I discussed the ongoing management of the patient's chronic left knee pain, primarily due to a valgus deformity and osteoarthritis. I provided extensive information on Platelet Rich Plasma (PRP) injection as a treatment option that can be considered for pain relief and potentially delaying surgical intervention. The patient was informed of the procedure?s specifics, costs, and the need for [id number]-uhiiet payment, as it is not covered by her insurance. I also clarified why current treatments such as cortisone injections did not provide relief and reviewed the option of more supportive or custom bracing. Patient Instructions - Consider PRP injection for knee pain if interested and discuss scheduling. - Discuss bracing options with Dr. Pulido or consider being fitted for orthotics. - Monitor pain levels and adjustments in daily activities. - Return for evaluation if pain worsens or new symptoms develop. - Explore insurance options for potential coverage changes. Coding Level of Care Code New Pt Level 4 (44028) Diagnoses Left knee pain M25.562
[2024-07-02 11:07] VITALS: BP 116/61; PULSE 61; RESP 16; O2SAT 100; BMI 31.8
--- OUTSIDE RECORDS SUMMARY | 2024-07-02 12:39 | XMS_ITS | Data Portability ---
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 ? ? Increase in asthma symptoms If yes, inhaler use: Reaction to last injections: Yes If yes: ? ? ?right upper 20mm Allergy Symptoms: Other: ? ? ? Missed: Dose Aware of Vial Test Notes:? ? ? Not available 05/15/2024 12:04:54 05/22/2024 05/22/2024 Visit With: iKah Lucio Use of Antihistamine s: No If [...] ? ? [email or web address] Not available 06/13/2024 10:59:27 06/26/2024 06/26/2024 Visit With: Kiah Lucio Use of Antihistamine s: No If yes: Vial Test Change in medications: No If yes ? ? ? Increase in asthma symptoms No Asthma Hx If yes, inhaler use: Reaction to last injections: No If yes: ? ? ? Allergy Symptoms: Other: ? ? ? Missed: Dose Aware of Vial Test Notes:? ? ? hlorinser Not available 06/26/2024 09:35:13 Plan of Treatment Reminders Order Date Submit Date Provider Last Modified By Organization Details Last Modified Time Details Appointments [facility]- Allergy f-up 6mon 2024 10:30A [...] Organization Details Recorded Time Achalasia of esophagus 55269505 Active 2022 Achalasia NOS; Note: Date Diagnosed : 06/23/2022 2:49 PM (K22.0) Not Available [facility] 4 03:10:05 Respirato ry finding 661057853 Active 2022 Feeling of foreign body in throat; Note: Date Diagnosed : 06/23/2022 2:49 PM (R09.89) Not Available [facility] 4 03:10:05 Cardiovas cular finding 749964829 Active 2022 Feeling of foreign body in throat; Note: Date Diagnosed : 06/23/2022 2:49 PM (R09.89) Not Available [facility] 4 03:10:05 Posterior rhinorrhe a 61561258 Active 2022 Postnasal drip; Note: Date Diagnosed : 06/23/2022 2:49 PM (R09.82) Not Available [facility] 4 03:10:04 Allergic rhinitis 81950478 Active 2023 Allergic rhinitis: Due to other [...] Note: Date Diagnosed : 10/16/19 Not Available [facility] 4 01:25:32 Deviated nasal septum 023138935 Active 2022 Deviated nasal septum; Note: Date Diagnosed : 06/23/2022 2:49 PM (J34.2) Not Available [facility] 4 03:10:04 Perennial allergic rhinitis 693268716 Active 2023 [facility] 100 [facility] 100, [place], [address] , [facility] - [facility] 4 10:29:26 Snoring 92020750 Active 2023 Snoring; Note: Date Diagnosed : 04/04/2023 8:51 AM (R06.83) Not Available [facility] 4 03:10:03 Obesity 826273501 Active 2023 Other obesity; Note: Date Diagnosed : 04/04/2023 8:51 AM (E66.8) Not Available [facility] 4 03:10:04 Tinnitus of vascular origin 894840256 Active 2023 Pulsatile tinnitus, right ear; Note: Date Diagnosed : 04/04/2023 8:49 AM (H93.A1) Not Available [facility] 4 03:10:04 Sensorine ural hearing loss 56006373 Active 2023 Sensorine ural hearing loss, unilatera l, right ear, with unrestric jaswant hearing on the contralat eral side; Note: Date Diagnosed : 04/04/2023 9:26 AM (H90.41) Not Available [facility] 4 03:10:05 Abnormal auditory perceptio n 71905310 Active 2023 JOSE VELÁZQUEZ MD 100 [facility],[place] 100, [place], [address] , [facility] - [facility] 4 21:49:47 Subjectiv e pulsatile tinnitus of right ear [id number] 80538 Active 2023 JOSE VELÁZQUEZ MD 100 [facility] [place] [facility], [place], [address] , [place] [facility] [place] 4 21:53:02 Abnormal auditory perceptio n 90920076 Active 2023 JOSE VELÁZQUEZ MD [address] [facility] [address],[place] [address], [place], [address] , [place] [facility] 4 09:14:23 Non-aller gic rhinitis 89707240533 1 Active 2023 Oh hernández [place] - [facility] 4 12:14:47 Seasonal allergic rhinitis 193953340 Active 2023 Oh hernández [place] - [facility] 4 12:14:47 Chronic sinusitis 90148230 Active 2023 Oh hernández [place] - [facility] 4 12:16:47 Polyp of nasal cavity 580040942 Active 2023 Oh hernández [place] - [facility] 4 12:17:03 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 Procedures Surgical History Date Name Laterality Status Provider Name and Address Organization Details Recorded Time 06/27/19 25 Allergy Immunotherapy Injections completed JUAQUIN YAÑEZ RN 100 [facility],[address], [address], [place] [facility] 06/26/2024 09:35:05 06/14/19 25 Allergy Immunotherapy Injections completed JUAQUIN YAÑEZ RN 100 [facility],[address], [address], [place] [facility] 06/13/2024 10:59:19 05/30/19 25 Allergy Immunotherapy Injections completed JUAQUIN YAÑEZ RN 100 [facility],[address], [address], [place] [facility] 05/29/2024 10:31:20 05/23/19 25 Allergy Immunotherapy Injections completed Isa Zaragoza [place] [facility] 05/22/2024 09:24:53 05/16/19 25 Allergy Immunotherapy Injections completed KIAH LUCIO RMA [address],[place] [address], [place], [address], [place] [facility] 05/15/2024 12:04:32 05/09/19 25 Allergy Immunotherapy Injections completed KEN NGHIAC, RMA [address],[place] [address], [place], [address], [place] [facility] 05/08/2024 09:54:06 05/01/19 25 Allergy Immunotherapy Injections completed KEN NGHIAC, RMA [address],[place] [address] [place] [address], [address], [place] [facility] 05/01/2024 10:21:08 04/23/19 25 Allergy Immunotherapy Injections completed KIAH LUCIO RMA [address],[place] [address] [place] [address], [address], [place] [facility] 04/23/2024 09:59:03 04/03/19 25 Allergy Immunotherapy Injections completed KEN AGRAWALC, RMA [address],[place] [address] [place] [address], [address], [place] [facility] 04/03/2024 10:20:26 03/28/19 25 Allergy Immunotherapy Injections completed JUAQUIN YAÑEZ RN [address],[place] [address] [place] [address], [address], [place] [facility] 03/28/2024 10:48:14 03/20/19 25 Allergy Immunotherapy Injections completed KEN RASTAZEC, RMA [address],[place] [address], [place], [address], [place] [facility] 03/20/2024 09:23:24 03/13/19 25 Allergy Immunotherapy Injections completed KEN KORZEC, RMA [address],[place] [address], [place], [address], [place] [facility] 03/13/2024 11:58:51 03/08/19 25 Allergy Immunotherapy Injections completed KEN KORZEC, RMA [address],[place] [address], [place], [address], [place] [facility] 03/08/2024 12:13:50 03/01/20 24 Allergy Immunotherapy Injections completed JUAQUIN YAÑEZ RN [address] [facility] [address],[place] [address], [place], [address], [place] [facility] 03/01/2024 09:38:10 02/23/20 24 Allergy Immunotherapy Injections completed JUAQUIN YAÑEZ RN [address] [facility] [address],[place] [address], [place], [address], [place] [facility] 02/23/2024 10:01:24 02/14/20 24 Allergy Immunotherapy Injections completed SCOTTY GUTHRIE [address],[place] [address], [place], [address], [place] [facility] 02/14/2024 11:05:56 02/07/20 24 Allergy Immunotherapy Injections completed JUAQUIN YAÑEZ RN 100 [facility] [place] [address] [place] [address], [address], [place] [facility] 02/07/2024 10:14:23 02/03/20 24 Allergy Immunotherapy Injections completed SCOTTY RICE [address] [facility] [address],[place] [address] [place] [address], [address], [place] [facility] 02/03/2024 09:34:55 01/24/20 24 Allergy Immunotherapy Injections completed JUAQUIN YAÑEZ RN 100 [facility] [place] [address] [place] [address], [address], [place] [facility] 01/24/2024 10:50:50 01/19/20 24 Allergy Immunotherapy Injections completed SCOTTY RICE [address],[place] [address], [place], [address], [place] [facility] 01/19/2024 13:18:23 01/10/20 24 Allergy Immunotherapy Injections completed SCOTTY RICE [address] [facility] [address],[place] [address], [place], [address], [place] [facility] 01/10/2024 09:42:22 01/03/20 24 Allergy Immunotherapy Injections completed JUAQUIN YAÑEZ RN [address],[place] [address], [place], [address], [place] [facility] 01/03/2024 11:08:00 12/29/19 24 Allergy Immunotherapy Injections completed SCOTTY RICE [address],[place] [address], [place], [address], [place] [facility] 12/29/2023 09:38:54 12/21/19 24 Allergy Immunotherapy Injections completed SCOTTY GUHTRIE [address],[place] [address], [place], [address], [place] [facility] 12/21/2023 11:30:52 12/14/19 24 Allergy Immunotherapy Injections completed JUAQUIN YAÑEZ RN [address] [facility] [address] [facility],[place] [address] [place] [address], [address], [place] [facility] 12/14/2023 11:25:12 11/23/19 24 Allergy Immunotherapy Injections completed SCOTTY GUTHRIE [address] [facility] [address],[place] [facility], [place], [address], [place] [facility] 11/23/2023 10:31:13 11/17/19 24 Allergy Immunotherapy Injections completed KEN CARDENAS RMKendell [address] [facility] [address],[place] [address], [place], [address], [place] [facility] 11/17/2023 09:42:16 11/09/19 24 Allergy Immunotherapy Injections completed JUAQUIN YAÑEZ RN 100 [facility] [place] [address] [place] [address], [address], [place] [facility] 11/09/2023 11:29:05 11/01/19 24 Allergy Immunotherapy Injections completed JUAQUIN YAÑEZ RN [address],[place] [facility], [place], [address], [place] [facility] 11/01/2023 10:43:38 10/27/19 24 Allergy Immunotherapy Injections completed KEN CARDENAS RMKendell [address],[place] [address], [place], [address], [place] [facility] 10/27/2023 11:59:30 10/19/19 24 Allergy Immunotherapy Injections completed JUAQUIN YAÑEZ RN [address] [facility] [address],[place] [facility], [place], [address], [place] [facility] 10/19/2023 10:27:27 10/19/19 24 Air & Speech Audio with Tymps ([id number], [id number] & [id number]) completed DARRIUS OSMAN MA, CCC-A [address] [facility] [address],[place] [address], [place], [address], [place] [facility] 10/19/2023 09:45:15 10/11/19 24 Allergy Immunotherapy Injections completed KIAH LUCIO COUNT INCLUDES [facility] 100 [facility] [place] [facility], [place], [address], [place] [facility] 10/11/2023 09:44:13 10/04/19 24 Allergy Immunotherapy Injections completed KEN CARDENAS Kendell [address],[place] [facility], [place], [address], [place] [facility] 10/04/2023 12:12:37 09/27/19 24 Allergy Immunotherapy Injections completed JUAQUIN YAÑEZ RN 100 [facility] [place] [facility], [place], [address], [place] [facility] 09/27/2023 10:51:29 09/20/19 24 Allergy Immunotherapy Injections completed JUAQUIN YAÑEZ RN [address] [facility] [address],[place] [address] [place] [address], [address], [place] [facility] 09/20/2023 10:20:29 09/13/19 24 Allergy Immunotherapy Injections completed SCOTTY RICE [address] [facility] [address],[place] [address] [place] [address], [address], [place] [facility] 09/13/2023 12:56:00 09/05/19 24 Allergy Immunotherapy Injections completed JUAQUIN YAÑEZ RN 100 [facility] [place] [address] [place] [address], [address], [place] [facility] 09/05/2023 09:56:55 08/31/19 24 Allergy Immunotherapy Injections completed SCOTTY RICE [facility] [place] [address], [place], [address], [place] [facility] 08/31/2023 09:14:03 08/23/19 24 Allergy Immunotherapy Injections completed KEN KORZEC, RMA [address],[place] [address], [place], [address], [facility] - [facility] 08/23/2023 09:35:11 08/17/19 24 Allergy Immunotherapy Injections completed KEN KORZEC, RMA [address],[place] [address], [place], [address], [facility] - [facility] 08/17/2023 10:13:24 08/10/19 24 Allergy Immunotherapy Injections completed KEN KORZEC, RMA [address],[place] [address], [place], [address], [facility] - [facility] 08/10/2023 11:14:06 08/03/19 24 Allergy Immunotherapy Injections completed JUAQUIN YAÑEZ RN [address] [facility] [address] [facility],[place] [address] [place] [address], [address], [facility] - [facility] 08/03/2023 10:25:33 07/27/19 24 Allergy Immunotherapy Injections completed KEN KORZEC, RMA [address] [facility] [address],[place] [address], [place], [address], [facility] - [facility] 07/27/2023 10:39:49 07/21/19 24 Allergy Immunotherapy Injections completed KEN KORZEC, RMA [address] [facility] [address],[place] [address], [place], [address], [facility] - [facility] 07/21/2023 10:29:54 Imaging Results None recorded. Procedure Notes None recorded. Medical Equipment None Reported. Allergies Allergen ID Allergen Name Allergen Category Reaction Reaction Severity Criticality Documentation Date Start Date Code Code System Note Provider Name and Address Organization Details Recorded Time 764808 oxycodone medicatio n Not available Not available Not available 07/19/2023 7804 RxNorm React ion: Dizzi ness, Abdom inal pain, Weakn ess; Not Available [facility] 4 01:20:52 [id number] lactose Not available diarrhea Not available Not available 07/19/2023 6211 RxNorm React ion: Diarr hea; Not Available [facility] 4 01:20:53 Medications Name Sig [...] mg tablet 09/08 completed Medicati on ID: [id number] B rand Name: dwight hill Send Method: E-Prescr ibed Sub s Allowed: subs OK Speci al Instruct ion: TAKE 1 TABLET BY MOUTH ONCE DAILY WITH FOOD Med icationG enericNa me: dwight m Not Available Not Available Not Available [...] Multi-Vit schaefer tablet active Medicati on ID: [id number] B rand Name: Daily Multi-Vi tamin Se [...] (7) tablet 09/08 completed Medicati on ID: [id number] B rand Name: Jensie Fe 03/26 () Sen d Method: E-Prescr ibed Sub s Allowed: subs OK Medic ationGen ericName : Jenise Fe 03/26 () Not Available Not Available Not Available Vitals None Recorded Social History None recorded. Functional Status None recorded. Mental Status None recorded. Family History Relationship Description Onset Age of this Age Resolved Age Notes LastModified by Organization Details LastModified Time Mother Asthma [email or web address] Not availab le 04/23/2024 09:21:21 Sister Asthma [email or web address] Not availab le 04/23/2024 09:21:21 Sister Complication of anesthesia [email or web address] Not available 09:21:21 Sister Allergy to food [email or web address] Not available 09:21:21 Medical History Condition Response [...] Diagnosis Note [id number] JOSE VELÁZQUEZ MD Allergy [address] [place] [address] ite 100 [facility] [address] 07/21/2023 10:01:06 07/22/2023 13:03:52 Perennial allergic rhinitis [id number] J30.89 [id number] JOSE VELÁZQUEZ MD Allergy [address] [place] [address] ite 100 [facility] [address] 07/27/2023 10:17:14 07/27/2023 11:20:05 Perennial allergic rhinitis [id number] J30.89 [id number] JUAQUIN YAÑEZ RN Allergy [address] [place] [address] ite 100 [facility] [address] 08/03/2023 10:24:55 08/03/2023 13:01:24 Perennial allergic rhinitis [id number] J30.89 2837 KEN AGRAWAL COUNT INCLUDES [facility] Allergy [address] [place] [address] ite 100 [facility] [address] 08/10/2023 10:49:51 08/10/2023 11:19:10 Perennial allergic rhinitis [id number] J30.89 3726 KEN CARDENAS COUNT INCLUDES THE [facility] Allergy [address] [place] [address] it[address] [place] [address] 08/17/2023 09:07:38 08/17/2023 11:14:32 Perennial allergic rhinitis 112528059 J30.89 [id number] [facility], COUNT INCLUDES THE [facility] Allergy [address] [place] [address],[place] [address] [place] [address] 08/23/2023 09:03:10 08/23/2023 13:26:57 Perennial allergic rhinitis [id number] J30.89 5606 KIAH LUCIO, COUNT INCLUDES THE [facility] Allergy [address] [place] [address], [address] [place] [address] 08/31/2023 08:49:58 08/31/2023 11:02:35 Perennial allergic rhinitis 997050966 J30.89 6153 JUAQUIN YAÑEZ RN Allergy [address] [place] [address] it[address] [place] [address] 09/05/2023 08:46:12 09/05/2023 10:03:05 Perennial allergic rhinitis [id number] J30.89 7075 KIAH LUCIO, COUNT INCLUDES THE [facility] Allergy [address] [place] [address] it[address] [place] [address] 09/13/2023 08:41:30 09/13/2023 14:37:18 Perennial allergic rhinitis 723193290 J30.89 8018 JUAQUIN YAÑEZ RN Allergy [address] [place] [address] it[address] [place] [address] 09/20/2023 10:16:20 09/21/2023 13:05:24 Perennial allergic rhinitis [id number] J30.89 9049 JUAQUIN YAÑEZ RN Allergy [address] [place] [address], [address] [place] [address] 09/27/2023 09:14:35 09/27/2023 10:52:56 Perennial allergic rhinitis [id number] J30.89 [id number] [facility], COUNT INCLUDES THE [facility] Allergy [address] [place] [address],[place] [address] [place] [address] 10/04/2023 12:11:42 10/04/2023 12:14:07 Perennial allergic rhinitis [id number] J30.89 [id number] KIAH LUCIO COUNT INCLUDES THE [facility] Allergy [address] [place] [address], it[address] 100 [facility] [address] 10/11/2023 09:43:29 10/11/2023 11:09:54 Perennial allergic rhinitis [id number] J30.89 [id number] JOSE VELÁZQUEZ MD [facility] 100 [place] [address] 10/19/2023 09:06:55 10/19/2023 10:05:09 Allergic rhinitis 17044701 J30.9 Doing well with immunother apy. EpiPen up-to-date . Abnormal a uditory perception 38151721 H93.291 Audio bilateral SNHL--stab le Subjective pulsatile tinnitus of right ear [id number] 153302 H93.A1 Previous MRA was negative. Deviated nasal septum 12 8195035 J34.2 mild Sensorineu ral hearing loss 13829518 H90.41 10-19-2023 udiologica l evaluation results: Right [...] Cou ld not maintain a hermetic seal}} [id number] JUAQUIN YAÑEZ RN Allergy 100 [facility],[place] [address] [place] [address] 10/19/2023 10:26:27 10/19/2023 10:27:52 Perennial allergic rhinitis 236344008 J30.89 [id number] [facility], COUNT INCLUDES [facility] Allergy [address] [place] [address],[place] [address] [place] [address] 10/27/2023 09:20:07 10/27/2023 13:21:33 Perennial allergic rhinitis 110132437 J30.89 [id number] JUAQUIN YAÑEZ RN Allergy [address] [place] [address], [address] [place] [address] 11/01/2023 10:42:48 11/01/2023 10:44:36 Perennial allergic rhinitis 697082432 J30.89 [id number] JUAQUIN YAÑEZ RN Allergy [address] [place] [address],[place] [address] [place] [address] 11/09/2023 11:26:12 11/09/2023 11:29:30 Perennial allergic rhinitis 019991898 J30.89 [id number] [facility] Allergy [address] [place] [address],[place] [address] [place] [address] 11/17/2023 09:40:52 11/17/2023 11:43:31 Perennial allergic rhinitis [id number] J30.89 [id number] JUAQUIN YAÑEZ RN Allergy [address] [place] [address],[place] [address] [place] [address] 11/23/2023 10:27:55 11/23/2023 10:32:23 Perennial allergic rhinitis 490873906 J30.89 [id number] JUAQUNI YAÑEZ RN Allergy [address] [place] [address],[place] [address] [place] [address] 12/14/2023 11:23:54 12/14/2023 11:25:34 Perennial allergic rhinitis [id number] J30.89 [id number] [facility] Allergy 100 [facility],[place] [address] [place] [address] 12/21/2023 11:30:12 12/21/2023 11:31:30 Perennial allergic rhinitis 758563939 J30.89 17373 KIAH KHADIJAH, A Allergy 100 [facility],[place] [address] [place] [address] 12/29/2023 09:38:10 12/29/2023 09:40:16 Perennial allergic rhinitis [id number] J30.89 [id number] JUAQUIN YAÑEZ RN Allergy [address] [place] [address],[place] [address] [place] [address] 01/03/2024 11:06:53 01/03/2024 11:08:17 Perennial allergic rhinitis [id number] J30.89 [id number] KIAH LUCIO COUNT INCLUDES THE [facility] Allergy [address] [place] [address],[place] [address] [place] [address] 01/10/2024 09:41:40 01/10/2024 09:42:52 Perennial allergic rhinitis [id number] J30.89 [id number] KIAH LUCIO COUNT INCLUDES THE [facility] Allergy [address] [place] [address],[place] [address] [place] [address] 01/19/2024 13:16:02 01/19/2024 13:20:09 Perennial allergic rhinitis 577357784 J30.89 [id number] JUAQUIN YAÑEZ RN Allergy [address] [place] [address],[place] [address] [place] [address] 01/24/2024 10:49:50 01/24/2024 10:52:32 Perennial allergic rhinitis [id number] J30.89 [id number] KIAH LUCIO COUNT INCLUDES THE [facility] Allergy [address] [place] [address],[place] [address] [place] [address] 02/03/2024 09:25:49 02/03/2024 09:35:31 Perennial allergic rhinitis [id number] J30.89 [id number] JUAQUIN YAÑEZ RN Allergy [address] [place] [address],[place] [address] [place] [address] 02/07/2024 10:13:39 02/07/2024 10:14:50 Perennial allergic rhinitis [id number] J30.89 [id number] [facility] 100 [facility],[place] [address] [place] [address] 02/14/2024 11:05:15 02/14/2024 11:06:25 Perennial allergic rhinitis [id number] J30.89 [id number] JUAQUIN YAÑEZ, circulation librarian [address] [place] [address],[address] [place] [address] 02/23/2024 10:00:14 02/23/2024 10:01:52 Perennial allergic rhinitis [id number] J30.89 [id number] JUAQUIN YAÑEZ RN Allergy [address] [place] [address],[address] [place] [address] 03/01/2024 09:37:35 03/01/2024 09:38:44 Perennial allergic rhinitis [id number] J30.89 [id number] [facility], A Allergy [address] [place] [address],[address] [place] [address] 03/08/2024 12:13:01 03/08/2024 12:14:59 Perennial allergic rhinitis [id number] J30.89 [id number] [facility] Allergy [address] [place] [address],[address] [place] [address] 03/13/2024 11:57:35 03/13/2024 11:59:25 Perennial allergic rhinitis [id number] J30.89 [id number] [facility] Allergy [address] [place] [address],[address] [place] [address] 03/20/2024 09:19:50 03/20/2024 09:23:46 Perennial allergic rhinitis [id number] J30.89 77492 JUAQUIN YAÑEZ RN Allergy [address] [place] [address],[address] [place] [address] 03/28/2024 10:20:37 03/28/2024 10:48:37 Perennial allergic rhinitis [id number] J30.89 80439 [facility] Allergy [address] [place] [address],[address] [place] [address] 04/03/2024 10:19:02 04/03/2024 10:20:47 Perennial allergic rhinitis [id number] J30.89 [id number] JOSE VELÁZQUEZ MD ENT[facility] of [facility] 100 [facility] JENIFFERRenae [place], [place] [address] 04/23/2024 09:16:11 04/23/2024 09:38:20 Allergic rhinitis [id number] J30.89 Doing well with immunother apy. New Epipen prescribed 02319 K[facility] LUCIO COUNT INCLUDES THE [facility] Allergy [address] [place] [address],[facility] [address] [place] [address] 04/23/2024 09:58:15 04/23/2024 09:59:52 Perennial allergic rhinitis [id number] J30.89 66970 [facility], COUNT INCLUDES THE [facility] Allergy [address] [place] [address],[facility] [address] [place] [address] 05/01/2024 10:16:09 05/01/2024 10:21:59 Perennial allergic rhinitis [id number] J30.89 42926 [facility] Allergy [address] [place], [place] [address] [address] [place] [address] 05/08/2024 09:53:32 05/08/2024 09:54:40 Perennial allergic rhinitis [id number] J30.89 15957 Isa Zaragoza Allergy [address] [place] [address],[facility] [address] [place] [address] 05/15/2024 12:02:41 05/15/2024 12:06:39 Perennial allergic rhinitis [id number] J30.89 29085 [facility] LUCIO COUNT INCLUDES THE [facility] Allergy [address] [place] [address],[facility] [address] [place] [address] 05/22/2024 09:23:27 05/22/2024 09:30:49 Perennial allergic rhinitis [id number] J30.89 07739 JUAQUIN YAÑEZ RN Allergy [address] [place] [address], [address] [place] [address] 05/29/2024 10:30:47 05/29/2024 10:31:45 Perennial allergic rhinitis [id number] J30.89 [id number] JUAQUIN YAÑEZ RN Allergy [address] [place] [address], [address] [place] [address] 06/13/2024 10:52:10 06/13/2024 10:59:44 Perennial allergic rhinitis [id number] J30.89 [id number] JUAQUIN YAÑEZ RN Allergy [address] [place] [address] 100 [facility] [place] [address] 06/26/2024 09:33:48 06/26/2024 09:35:30 Perennial allergic rhinitis [id number] J30.89 Health Concerns Section Related Observation LastModified by Organization Detai ls LastModified Time None Recorded Concern Status LastModified by Organization Details LastModified Time None Recorded Advance Directives Directive None Recorded Payers Encounter Date Sequence Insurance Name Policy Number Policy Roche Covered Member ID Roche Member ID Guarantor Name 05/15/2024 1 [place] [facility] [id number] Shelia Haya [id number] Shelia Haya 05/22/2024 1 [place] [facility] [id number] Shelia Haya [id number] Shelia Haya 05/29/2024 1 [place] [facility] [id number] Shelia Haya [id number] Shelia Haya 06/13/2024 1 [place] [facility] [id number] Shelia Haya [id number] Shelia Haya 06/26/2024 1 [place] [facility] [id number] Shelia Haya [id number] Shelia Haya OBGyn Episode No OBEpisode recorded.
--- OUTSIDE RECORDS SUMMARY | 2024-07-02 12:39 | XMS_ITS | Clinical Summary ---
Author Organization 175 [facility] Address [address] [place] [address] Phone Care Team Providers Care Equipment Monitor Phototypesetting Name Role Phone Bonnie Ahn MD Primary Care Provider [phone] Allergies Active Allergy Reactions Criticality Noted Date [...] time each day. 30 each 2 5 Active buPROPion XL (WELLBUTRIN XL) 150 mg 24 hr tabletIndications :Obesity, Class I, BMI 30-34.9 Take 1 tablet (150 mg total) by mouth 1 (one) time each day in the morning. 30 each 2 5 Active Active Problems Problem Noted Date Diagnosed Date Class 2 obesity with body ma ss index (BMI) of 35.0 to 35.9 in adult 02/01/2024 Abdominal pannus 08/24/2019 Diastasis recti 08/24/2019 Intertrigo 08/24/2019 Skin laxity 08/24/2019 Excess weight 03/29/2019 Intestinal malabsorption following gastrectomy 0 11/29/2017 Achalasia 08/19/2017 Encounters Date Type Department Care Team Description 04/03/2024 9:00 AM EST Office Visit Bariatric Surgery - [address] [place] [address] Radha West MD Obesity, Class [...] HISTORY PROCEDURE: ARTHROSCOPY PROCEDURE NEC SECTION PROCEDURE: [place] DELIVERY ONLY OTHER SURGICAL HISTORY PROCEDURE: HISTORY OTHER; COMMENT: surgery for blood clot. Medical History Medical History Date Comments History of bariatric surgery 08/19/2017 DX: History of bariatric surgery; COMMENT: 02/23/2017 Laparoscopic sleeve gastrectomy, Dr. West Achalasia 08/19/2017 DX:Achalasia Morbid obesity with BMI of 45.0-49.9, adult ([facility] V24, [facility] V28) 08/19/2017 DX:Morbid obesity with BMI o f 45.0-49.9, adult ([facility]) Family History Medical History Relation Name [...] AM EDT Office Visit Bariatric Surgery - [place] 175 [facility] [address] [place] [id number] Radha West MD 175 [facility] [address] [address] Health Maintenance Due Date Last Done Comments [...] to complete this topic Insurance Care Teams Equipment Monitor Phototypesetting Relationship Specialty Start Date End Date Bonnie Ahn MD [address] [place] [address] , [facility] 101 [facility] Physician Associ D/B/A: [facility] ESTEFANÍA Larson PCP - General Internal Medicine 03/29/19
== END 2024-07-02 11:54 | disposition home or self-care (01) ==
LOC: HO.PMC 10:42
PROVIDERS: PCP Internal Medicine; Referring Provider Orthopaedic Surgery; Visit Provider Internal Medicine
DX: M25.562 Pain in left knee (principal)
CPT/HCPCS: 99204

== ENCOUNTER 2024-07-23 08:17 | Outpatient (AMB) | payer BC, SELFPAY ==
--- NOTE | 2024-07-23 08:21 | MHC.OFFVIS ---
Vital Signs 07/23/24 08:22 Height 5 ft 4 in Weight 184 lb BMI 31.6 BP 110/65 Blood Pressure Location Lt brachial Position Sitting Pulse 59 Pulse Oximetry (%) 97 Oxygen Delivery Method Room Air Intake Visit Reasons: 6 month follow up Intake Note: Patient follow up for GERD and dysphasia and Barium swallow results Patient cc: GERD on and off, some dysphagia and diarrhea on and off. Denies any other GI issues. Party Plan Sales Unit Sales Leader Required: No Accompanied by: Self / Same As Patient Allergies lactose Allergy (Intermediate, Verified 07/23/24 08:23) diarrhea oxycodone Adverse Reaction (Mild, Verified 07/23/24 08:23) Vomiting, stomach pain HPI HPI 6 month follow up: Details: LAST VISIT: GERD (gastroesophageal reflux disease) Status post colonoscopy Plan Will switch PPI to pantoprazole as this one is covered by her insurance. Take it twice a day for the next 3 months then daily. Follow-up in 6 months so we can discuss going for repeat endoscopy. Patient will call our office if she will continue to have symptoms despite taking the medication. Discussed with patient the importance of avoiding dietary triggers and late night snacking. Staying upright for minimum 3 hours after meals discussed with her. Colonoscopy in 10 years unless clinically necessary. Patient is agreeable to current plan of care and verbalizes understanding of instructions. She was given the opportunity to ask questions and all questions answered. ? Thank you for allowing me to participate in her care Orders Orders FL barium swallow Today R13.10 Medications New pantoprazole 20 mg PO BID 60 tabs 2RF Discontinued omeprazole Take 1 cap twice a day for 8 weeks and then once daily Discontinued Reason: Doctor's Order 20 mg PO BID 90 days 180 caps 0RF UPPER ENDOSCOPY: EGD Findings:? Esophagus:? Normal mucosa noted in the entire esophagus. The Z line was at 33 cm and irregular up to 32 cm. Cold forceps biopsies were taken from the GE junction to r/o BE. A tissue cypher will also be sent. Middle esophagus forceps biopsies were also obtained to rule out eosinophilic esophagitis. Stomach:? Tubular stomach anatomy was noted concurrent with hx of sleeve gastrectomy. The gastric pouch appeared dilated as retroflexion could be performed. Normal mucosa was noted in the stomach. Duodenum:? Normal mucosa was noted in the whole of the examined duodenum. Additional intervention: Soft tipped Savary wire was introduced through the biopsy channel of the gastroscope and advanced to the antrum. ?The gastroscope was then backed out. ?Savary Velia bougie was advanced over the guidewire and the esophagus was dilated to 18 mm without any resistance felt. ?On relook, small tear was noted at the GE junction ? EGD Impressions:? 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 Recommendations:?? Follow biopsy results. Our office will call or send a letter with results within 7-10 days. Resume anticoagulation tomorrow. Cont PPI Avoid NSAIDs. PATHOLOGY: Addendum Addendum #1 TissueCypher(A): Risk class Intermediate; risk score 5.7 See report in its entirety in the EMR - Reports/Pathology section as a scanned report (camera icon). If appropriate, a copy has also been sent to the ordering provider's office. Electronically Signed By: Presley Krause MD 07/13/24 0754 Diagnosis A. GE junction, biopsy: - Quintana esophagus with background moderate chronic active inflammation. - Negative for H. pylori. - No dysplasia seen. - Active esophagitis (maximum eosinophil count 3 per high powered field). B. Esophagus, middle, biopsy: Squamous epithelium within normal limits; no inflammation seen TODAY'S VISIT Patient is here today for follow-up and to discuss upper endoscopy results. Patient was sent for upper endoscopy due to positive barium swallow results. Patient was found to have mild to moderate narrowing at the GE junction. Patient went for upper endoscopy. Dilation of the esophagus was performed. Patient reports that when she got home she was unable to eat anything. Anything she ate even drinking water she felt epigastric pain. Patient was vomiting after couple days of feeling like this patient went to ED. She was given sucralfate and nausea medication. Patient states that sucralfate help and after few days she started feeling better. However she reports that omeprazole is not working for her. Patient is taking 20 mg twice a day. Patient's insurance is not covering any PPIs so she is paying for this [id number]. Patient was diagnosed with Barretts. Patient reports that she still will have epigastric pain postprandially depending on what she eats. Patient is trying to eat smaller meals and more often. Reports abdominal bloating as well. Denies melena, hematochezia. Reports occasional dyspepsia and dysphagia without odynophagia. 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 Deep vein thrombosis (07/28/22) Obesity (BMI 35.0-39.9 without comorbidity) Class 1 obesity with body mass index (BMI) of 34.0 to 34.9 in adult Thrombocytopenia Pancytopenia Osteoarthritis of left knee Hypovitaminosis D Toenail deformity Left shoulder pain Constipation by delayed colonic transit Hypothyroidism Surgical History History of esophagogastroduodenoscopy (EGD) H/O colonoscopy H/O gastric sleeve Venous insufficiency of left leg History of surgery History of cholecystectomy History of arthroscopy of left knee History of section Family History Father Diabetes CVD (cardiovascular disease) Myocardial infarction Mother CVD (cardiovascular disease) Hypertension Maternal Grandmother No problems noted. Maternal Grandfather Prostate cancer Family/Other Mental health disorder Social History Household Members: Spouse and Children Housing: House Are you a primary post anesthesia care unit nurse to a significant other at home: No Do you presently have visiting nurse or other home services: No Alcohol intake: never Comment: S3 Patient Tobacco Use Status: Never used Tobacco e-Cigarette/Vaping Use: Never Used Second Hand Smoke Exposure: No service: No Current occupational status: employed Current occupational exposures/hazards: No Cognitive needs: No Hearing needs: No Vision needs: Yes Review of Systems Const Denies weight gain and Denies weight loss ENT Reports no additional complaints, Denies dysphagia and Denies odynophagia Card Reports no additional complaints Resp Reports no additional complaints GI Reports abdominal pain (Epigastric ), Denies belching, Denies melena, Reports bloating, Denies change in bowel habits, Denies dysphagia, Denies excessive flatus, Denies dyspepsia, Reports heartburn, Denies diarrhea, Denies loose stools, Denies nausea, Denies odynophagia and Denies vomiting Reports no additional complaints Musc Reports no additional complaints Neuro Reports no additional complaints Psych Reports no additional complaints Endo Reports no additional complaints Physical Exam Vital Signs: Last Vital Signs Pulse 59 07/23/24 08:22 BP 110/65 07/23/24 08:22 Pulse Ox 97 07/23/24 08:22 Oxygen Delivery Method Room Air 07/23/24 08:22 BMI result Body Mass Index 31.6 Const General: healthy appearing and no acute distress Nutritional Appearance: obese Orientation/consciousness: patient oriented x3 Resp Effort & Inspection: normal respiratory effort, able to speak in complete sentences, no tracheal deviation and symmetric chest movement Auscultation: clear to auscultation bilaterally Cardio Rate: regular rate GI Inspection: Yes normal to inspection, No distended and Yes obesity Palpation (GI): Soft to palpation, not firm, nontender and No hepatosplenomegaly present Auscultation: normal bowel sounds General: Yes no CVA tenderness Back/Spine/Pelvis Back: no CVA tenderness Skin General skin exam: elasticity normal, turgor normal and dry skin Neuro General: patient oriented x3 Psych Appearance: grossly normal Mental Status: mental status grossly normal Judgement: Good judgement present (Psych) Results Reviewed Results Reviewed: BARIUM SWALLOW IMPRESSION: 1. Patulous esophagus with severely disorganized peristalsis consistent with severe esophageal dysmotility. 2. Mild to moderate narrowing of the GE junction, which suggests achalasia. A benign stricture cannot be ruled out. This does not appear to be obstructing at this time. 3. Post surgical changes consistent with prior history of sleeve gastrectomy. 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 She will call us if medication will not be effective. Patient will try small meals and more often. Avoid dietary triggers and late night snacking. Staying upright for minimum 3 hours after meals discussed with patient. Patient will follow-up in 6 months, sooner on as needed basis. She is agreeable to this plan and verbalizes understanding of instructions. She was given the opportunity to ask questions and all questions answered. 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
[2024-07-23 08:22] VITALS: BP 110/65; PULSE 59; O2SAT 97; BMI 31.6
--- OUTSIDE RECORDS SUMMARY | 2024-07-23 08:23 | XMS_ITS | Clinical Summary ---
Author Organization 175 [facility] Address [address] [place] [address] Phone Care Team Providers Care Aviation Manager Name Role Phone Bonnie Ahn MD Primary Care Provider [phone] Allergies Active Allergy Reactions Criticality Noted Date [...] day in the morning. 30 each 2 Active Active Problems Problem Noted Date Diagnosed Date Class 2 obesity with body ma ss index (BMI) of 35.0 to 35.9 in adult 02/01/2024 Abdominal pannus 08/24/2019 Diastasis recti 08/24/2019 Intertrigo 08/24/2019 Skin laxity 08/24/2019 Excess weight 03/29/2019 Intestinal malabsorption following gastrectomy 0 11/29/2017 Achalasia 08/19/2017 Surgical History Surgery Date Site/Laterality Comments CHOLECYSTECTOMY 02/23/2017 PROCEDURE: HISTORICAL CHOLECYSTECTOMY OTHER SURGICAL HISTORY 02/23/2017 PROCEDURE: ---- OTHER ----; COMMENT: Hiatal hernia repair, incidental finding during lap sleeve gastrectomy OTHER SURGICAL HISTORY 02/23/2017 PROCEDURE: ---- OTHER ----; COMMENT: Lap sleeve gastrectomy, Dr. West OTHER SURGICAL HISTORY PROCEDURE: ARTHROSCOPY PROCEDURE NEC SECTION PROCEDURE: [place] DELIVERY ONLY OTHER SURGICAL HISTORY PROCEDURE: HISTORY OTHER; COMMENT: surgery for blood clot. Medical History Medical History Date Comments History of bariatric surgery 08/19/2017 DX: History of bariatric surgery; COMMENT: 02/23/2017 Laparoscopic sleeve gastrectomy, Dr. West Achalasia 08/19/2017 DX:Achalasia Morbid obesity with BMI of 45.0-49.9, adult ([facility] V24, [facility] V28) 08/19/2017 DX:Morbid obesity with BMI o f 45.0-49.9, adult ([facility]) Family History Medical History Relation Name Comments [...] AM EDT Office Visit Bariatric Surgery - [place] 175 [facility] [address] [place] [id number] Radha West MD 175 [facility] [address] [place] [address] Health Maintenance Due Date Last Done Comments [...] to complete this topic Insurance Care Teams Aviation Manager Relationship Specialty Start Date End Date Bonnie Ahn MD [address] [place] [address] , [address] [facility] Physician [facility] D/B/A: [facility] ESTEFANÍA Larson PCP - General Internal Medicine 03/29/19
== END 2024-07-23 09:02 | disposition home or self-care (01) ==
LOC: HO.HGI 08:18
PROVIDERS: PCP Internal Medicine; Visit Provider Nurse Practitioner Family
DX: K22.70 Barrett's esophagus without dysplasia (principal); K21.9 Gastro-esophageal reflux disease without esophagitis
CPT/HCPCS: 99214

== ENCOUNTER 2024-08-22 07:55 | Outpatient (REF) | payer BC, SELFPAY ==
--- NOTE | 2024-08-22 07:59 | ECG_ITS ---
Test Reason : PREOP Blood Pressure : */* mmHG Vent. Rate : 57 BPM Atrial Rate : 57 BPM P-R Int : 110 ms QRS Dur : 74 ms QT Int : 412 ms P-R-T Axes : 41 46 36 degrees QTcB Int : 401 ms Sinus bradycardia with short NJ Otherwise normal ECG When compared with ECG of 24-Nov-2021 08:22, No significant change was found Referred By: Bonnie Ahn Electronically Signed By: Ishaan Quiroz
--- OUTSIDE RECORDS SUMMARY | 2024-08-22 08:02 | XMS_ITS | Data Portability ---
Author Organization [place] [facility], Allergy Address [address] [place] [address] Care Team Providers Care Linter Tender Name Role Phone TOD JENKINS Primary Care Provider [phone] Assessment Encounter Date Assessment Date Assessment LastModified by Organization Details LastModified Time 05/29/2024 05/29/2024 Visit With: Juaquin Yañez RN Use of Antihistamine s: No If yes: Vial Test Change in medications: No If yes Increase in asthma symptoms No Asthma Hx If yes, inhaler use: Reaction to last injections: No If yes: Allergy Symptoms: Other: Missed: Dose Aware of Vial Test Notes: [email or web address] Not available 05/29/2024 10:31:26 06/13/2024 06/13/2024 Visit With: Juaquin Yañez RN Use of Antihistamine s: No If yes: Vial Test Change in medications: No If yes Increase in asthma symptoms No Asthma Hx If yes, inhaler use: Reaction to last injections: No If yes: Allergy Symptoms: Other: Missed: Dose Aware of Vial Test Notes: [email or web address] Not available 06/13/2024 10:59:27 06/26/2024 06/26/2024 Visit With: Kiah Lucio Use of Antihistamine s: No If yes: Vial Test Change in medications: No If yes Increase in asthma symptoms No Asthma Hx If yes, inhaler use: Reaction to last injections: No If yes: Allergy Symptoms: Other: Missed: Dose Aware of Vial Test Notes: [email or web address] Not available 06/26/2024 09:35:13 07/12/2024 07/12/2024 Visit With: Juaquin Lorinser, RN Use of Antihistamine s: No If yes: Vial Test Change in medications: No If yes Increase in asthma symptoms No Asthma Hx If yes, inhaler use: Reaction to last injections: No If yes: Allergy Symptoms: Other: Missed: Dose Aware of Vial Test Notes: [email or web address] Not available 07/12/2024 09:50:33 07/26/2024 07/26/2024 Visit With: SCOTTY Lara Use of Antihistamine s: No If yes: Vial Test Change in medications: Yes If yes nexium Increase in asthma symptoms No Asthma Hx If yes, inhaler use: Reaction to last injections: No If yes: Allergy Symptoms: Other: Missed: Dose Aware of Vial Test Notes: [email or web address] Not available 07/26/2024 10:29:14 Plan of Treatment Reminders Order Date Submit Date Provider Last Modified By Organization Details Last Modified Time Details Appointments [facility]- Allergy f-up 6mon 2024 10:30A M [...] Organization Details Recorded Time Achalasia of esophagus 47963815 Active 2022 Achalasia NOS; Note: Date Diagnosed : 06/23/2022 2:49 PM (K22.0) Not Available [facility] 4 03:10:05 Respirato ry finding 327856207 Active 2022 Feeling of foreign body in throat; Note: Date Diagnosed : 06/23/2022 2:49 PM (R09.89) Not Available [facility] 4 03:10:05 Cardiovas cular finding 955805342 Active 2022 Feeling of foreign body in throat; Note: Date Diagnosed : 06/23/2022 2:49 PM (R09.89) Not Available [facility] 4 03:10:05 Posterior rhinorrhe a 81174199 Active 2022 Postnasal drip; Note: Date Diagnosed : 06/23/2022 2:49 PM (R09.82) Not Available [facility] 4 03:10:04 Allergic rhinitis 38514750 Active 2023 Allergic rhinitis: Due to other [...] Note: Date Diagnosed : 10/16/19 Not Available [facility] 4 01:25:32 Deviated nasal septum 638790398 Active 2022 Deviated nasal septum; Note: Date Diagnosed : 06/23/2022 2:49 PM (J34.2) Not Available [facility] 4 03:10:04 Perennial allergic rhinitis 789082032 Active 2023 KEN CARDENAS, RMA [address], [place], [address] , [place] [facility] 4 10:29:26 Snoring 79572643 Active 2023 Snoring; Note: Date Diagnosed : 04/04/2023 8:51 AM (R06.83) Not Available [facility] 4 03:10:03 Obesity 858924940 Active 2023 Other obesity; Note: Date Diagnosed : 04/04/2023 8:51 AM (E66.8) Not Available [facility] 4 03:10:04 Tinnitus of vascular origin 750916491 Active 2023 Pulsatile tinnitus, right ear; Note: Date Diagnosed : 04/04/2023 8:49 AM (H93.A1) Not Available [facility] 4 03:10:04 Sensorine ural hearing loss 39835841 Active 2023 Sensorine ural hearing loss, unilatera l, right ear, with unrestric jaswant hearing on the contralat eral side; Note: Date Diagnosed : 04/04/2023 9:26 AM (H90.41) Not Available [facility] 4 03:10:05 Abnormal auditory perceptio n 56733590 Active 2023 JOSE VELÁZQUEZ MD 100 [facility] 100, [place], [address] , [place] [facility] [place] 4 21:49:47 Subjectiv e pulsatile tinnitus of right ear [id number] 05544 Active 2023 JOSE VELÁZQUEZ MD [address] [place],[address], [place], [address] , [place] [facility] [place] 4 21:53:02 Abnormal auditory perceptio n 29195814 Active 2023 JOSE VELÁZQUEZ MD 100 [facility],[place] [address], [place], [address] , [place] [facility] [place] 4 09:14:23 Non-aller gic rhinitis 83073718622 1 Active 2023 Oh hernández, [place] - [facility] [place] 4 12:14:47 Seasonal allergic rhinitis 421925011 Active 2023 Ohisabela Carrizales null, [place] [facility] [place] 4 12:14:47 Chronic sinusitis 58474313 Active 2023 Ohisabela Carrizales null[place] [facility] [place] 4 12:16:47 Polyp of nasal cavity 445401164 Active 2023 Ohisabela hernández, [place] [facility] [place] 4 12:17:03 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 Procedures Surgical History Date Name Laterality Status Provider Name and Address Organization Details Recorded Time 07/27/19 25 Allergy Immunotherapy Injections completed KEN CARDENAS [facility] 100 [facility],[address], [address], [place] [facility] [place] 07/26/2024 10:28:09 07/13/19 25 Allergy Immunotherapy Injections completed JUAQUIN YAÑEZ RN 100 [facility],[address], [address], [place] [facility] [place] 07/12/2024 09:50:19 06/27/19 25 Allergy Immunotherapy Injections completed JUAQUIN AYÑEZ RN 100 [facility],[address], [address], [place] [facility] [place] 06/26/2024 09:35:05 06/14/19 25 Allergy Immunotherapy Injections completed JUAQUIN YAÑEZ RN 100 [facility],[address], [address], [place] [facility] [place] 06/13/2024 10:59:19 05/30/19 25 Allergy Immunotherapy Injections completed JUAQUIN YAÑEZ RN [address] [facility] [place], [address], [place] [facility] [place] 05/29/2024 10:31:20 05/23/19 25 Allergy Immunotherapy Injections completed Isa Zaragoza [place] [facility] [place] 05/22/2024 09:24:53 05/16/19 25 Allergy Immunotherapy Injections completed SCOTTY RICE [address], [place], [address], [place] [facility] [place] 05/15/2024 12:04:32 05/09/19 25 Allergy Immunotherapy Injections completed KEN CARDENAS RMA [address], [place], [address], [place] [facility] [place] 05/08/2024 09:54:06 05/01/19 25 Allergy Immunotherapy Injections completed KEN CARDENAS RMA [address] [place] [address], [address], [place] [facility] [place] 05/01/2024 10:21:08 04/23/19 25 Allergy Immunotherapy Injections completed KIAH LUCIO RMIsabela [address] [place] [address], [address], [place] [facility] [place] 04/23/2024 09:59:03 04/03/19 25 Allergy Immunotherapy Injections completed KEN CARDENAS RMA [address] [place] [address], [address], [place] [facility] [place] 04/03/2024 10:20:26 03/28/19 25 Allergy Immunotherapy Injections completed JUAQUIN YAÑEZ RN [address] [facility] [place] [place], [address], [place] [facility] [place] 03/28/2024 10:48:14 03/20/19 25 Allergy Immunotherapy Injections completed KEN CARDENAS RMA [address], [place], [address], [place] [facility] [place] 03/20/2024 09:23:24 03/13/19 25 Allergy Immunotherapy Injections completed KEN AGRAWALC, RMA [address], [place], [address], [place] [facility] [place] 03/13/2024 11:58:51 03/08/19 25 Allergy Immunotherapy Injections completed KEN CARDENAS, RMA [address], [place], [address], [place] [facility] [place] 03/08/2024 12:13:50 03/01/20 24 Allergy Immunotherapy Injections completed JUAQUIN YAÑEZ RN [address], [place], [address], [place] [facility] [place] 03/01/2024 09:38:10 02/23/20 24 Allergy Immunotherapy Injections completed JUAQUIN YAÑEZ RN [address] [place] [address], [address], [place] [facility] [place] 02/23/2024 10:01:24 02/14/20 24 Allergy Immunotherapy Injections completed KEN CARDENAS Isabela [address] [place] [address], [address], [place] [facility] [place] 02/14/2024 11:05:56 02/07/20 24 Allergy Immunotherapy Injections completed JUAQUIN YAÑEZ RN [address] [place] [address], [address], [place] [facility] [place] 02/07/2024 10:14:23 02/03/20 24 Allergy Immunotherapy Injections completed SCOTTY RICE [address] [place] [address], [address], [place] [facility] [place] 02/03/2024 09:34:55 01/24/20 24 Allergy Immunotherapy Injections completed JUAQUIN YAÑEZ RN [address] [place] [address], [address], [place] [facility] [place] 01/24/2024 10:50:50 01/19/20 24 Allergy Immunotherapy Injections completed SCOTTY RICE [address], [place], [address], [place] [facility] [place] 01/19/2024 13:18:23 01/10/20 24 Allergy Immunotherapy Injections completed SCOTTY RICE [address], [place], [address], [place] [facility] 01/10/2024 09:42:22 01/03/20 24 Allergy Immunotherapy Injections completed JUAQUIN YAÑEZ RN [address], [place], [address], [place] [facility] 01/03/2024 11:08:00 12/29/19 24 Allergy Immunotherapy Injections completed SCOTTY RICE [address], [place], [address], [place] [facility] 12/29/2023 09:38:54 12/21/19 24 Allergy Immunotherapy Injections completed SCOTTY LARA [address], [place], [address], [place] [facility] 12/21/2023 11:30:52 12/14/19 24 Allergy Immunotherapy Injections completed JUAQUIN YAÑEZ RN [address] [place] [address], [address], [place] [facility] 12/14/2023 11:25:12 11/23/19 24 Allergy Immunotherapy Injections completed SCOTTY LARA [address] [place] [address], [address], [place] [facility] 11/23/2023 10:31:13 11/17/19 24 Allergy Immunotherapy Injections completed SCOTTY LARA [address], [place], [address], [place] [facility] 11/17/2023 09:42:16 11/09/19 24 Allergy Immunotherapy Injections completed JUAQUIN YAÑEZ RN [address] [facility] [place] [place], [address], [place] [facility] 11/09/2023 11:29:05 11/01/19 24 Allergy Immunotherapy Injections completed JUAQUIN YAÑEZ RN [address], [place], [address], [place] [facility] 11/01/2023 10:43:38 10/27/19 24 Allergy Immunotherapy Injections completed KEN CARDENAS, A [address], [place], [address], [place] [facility] 10/27/2023 11:59:30 10/19/19 24 Allergy Immunotherapy Injections completed JUAQUIN YAÑEZ RN [address] [facility] [place] [place], [address], [place] [facility] [place] 10/19/2023 10:27:27 10/19/19 24 Air & Speech Audio with Tymps - [id number], 31219 & 06869 completed DARRIUS OSMAN MA, CCC-A [address] [facility] [address] [facility] [place], [address], [place] [facility] [place] 10/19/2023 09:45:15 10/11/19 24 Allergy Immunotherapy Injections completed SCOTTY RICE [address] [facility] [address] [place],[address], [address], [place] [facility] 10/11/2023 09:44:13 10/04/19 24 Allergy Immunotherapy Injections completed KEN CARDENAS, Isabela [address] [facility] [place], [address], [place] [facility] 10/04/2023 12:12:37 09/27/19 24 Allergy Immunotherapy Injections completed JUAQUIN YAÑEZ RN [address] [facility] [place],[address], [address], [place] [facility] 09/27/2023 10:51:29 09/20/19 24 Allergy Immunotherapy Injections completed JUAQUIN YAÑEZ RN 100 [facility],[address] [place] [address], [address], [place] [facility] [place] 09/20/2023 10:20:29 09/13/19 24 Allergy Immunotherapy Injections completed SCOTTY RICE [address] [place],[address] [place] [address], [address], [place] [facility] 09/13/2023 12:56:00 09/05/19 24 Allergy Immunotherapy Injections completed JUAQUIN YAÑEZ RN 100 [facility],[address], [address], [place] [facility] 09/05/2023 09:56:55 08/31/19 24 Allergy Immunotherapy Injections completed KIAH LUCIO, RMA [address], [place], [address], [facility] - [facility] 08/31/2023 09:14:03 08/23/19 24 Allergy Immunotherapy Injections completed KEN RASTALEANAC, RMA [address], [place], [address], [facility] - [facility] 08/23/2023 09:35:11 08/17/19 24 Allergy Immunotherapy Injections completed KEN KORZEC, RMA [address], [place], [address], [facility] - [facility] 08/17/2023 10:13:24 08/10/19 24 Allergy Immunotherapy Injections completed KEN NGHIAC, RMA [address] [place] [address], [address], [facility] - [facility] 08/10/2023 11:14:06 08/03/19 24 Allergy Immunotherapy Injections completed JUAQUIN YAÑEZ RN [address] [place] [address], [address], [facility] - [facility] 08/03/2023 10:25:33 07/27/19 24 Allergy Immunotherapy Injections completed KEN NGHIAC, RMA [address] [place] [address], [address], [facility] - [facility] 07/27/2023 10:39:49 07/21/19 24 Allergy Immunotherapy Injections completed KEN KORZEC, RMA [address], [place], [address], [facility] - [facility] 07/21/2023 10:29:54 Imaging Results None recorded. Procedure Notes None recorded. Medical Equipment None Reported. Allergies Allergen ID Allergen Name Allergen Category Reaction Reaction Severity Criticality Documentation Date Start Date Code Code System Note Provider Name and Address Organization Details Recorded Time 892987 oxycodone medicatio n Not available Not available Not available 07/19/2023 1144 RxNorm React ion: Dizzi ness, Abdom inal pain, Weakn ess; Not Available [facility] 4 01:20:52 456338 lactose Not available diarrhea Not available Not available 07/19/2023 6211 RxNorm React ion: Diarr hea; Not Available [facility] 4 01:20:53 Medications Name [...] mg tablet 09/08 completed Medicati on ID: [id number] B rand Name: dwight hill Send Method: [...] Multi-Vit schaefer tablet active Medicati on ID: [id number] B rand Name: Daily Multi-Vi tamin Se [...] Not Available Not Available No t Available Nexium active Not Available Not Availa ble Not Available Qsymia 11.25 mg-69 mg capsule, extended [...] (7) tablet 09/08 completed Medicati on ID: [id number] B rand Name: Jenise Fe 03/26 () Sen d Method: E-Prescr ibed Sub s Allowed: subs OK Medic ationGen ericName : Jenise Fe 1/20 (28) Not Available Not Available Not Available Vitals None Recorded Social History None recorded. Functional Status None recorded. Mental Status None recorded. Family History Relationship Description Onset Age of this Age Resolved Age Notes LastModified by Organization Details LastModified Time Mother Asthma [email or web address] Not availab le 04/23/2024 09:21:21 Sister Asthma Not availab le 04/23/2024 09:21:21 Sister Complication of anesthesia [email or web address] Not available 09:21:21 Sister Allergy to food [email or web address] Not available 09:21:21 Medical History Condition Response Allergies/Hayfever Y Heart Problems N Anxiety N Tonsil Infections N Emphysema N Migraines N Thyroid Problems Y Glaucoma N Depression N COPD N Developmental Delay N Nasal or Sinus Problems Y Anemia Y Immune System Disorder N Anesthesia Complications N Heart Attack ([place]) N Other Skin Condition N Diabetes N [...] Code Diagnosis ICD10 Code Diagnosis Note 492 JUAQUIN YAÑEZ RN Allergy [address] [place] [address], [address] 100 [place] [address] 07/21/2023 10:01:06 07/22/2023 13:03:52 Perennial allergic rhinitis [id number] J30.89 1117 KEN AGRAWAL A Allergy [address] [place] [address],[place] [address] [place] [address] 07/27/2023 10:17:14 07/27/2023 11:20:05 Perennial allergic rhinitis [id number] J30.89 1806 JUAQUIN AYÑEZ RN Allergy [address] [place] [address],[place] [address] [place] [address] 08/03/2023 10:24:55 08/03/2023 13:01:24 Perennial allergic rhinitis [id number] J30.89 [id number] KEN AGRAWAL, RMA Allergy [address] [place] [address],[place] [address] [place] [address] 08/10/2023 10:49:51 08/10/2023 11:19:10 Perennial allergic rhinitis [id number] J30.89 3726 KIAH LUCIO [facility] Allergy [address] [place] [address] [address] [place] [address] 08/17/2023 09:07:38 08/17/2023 11:14:32 Perennial allergic rhinitis [id number] J30.89 [id number] [facility] Allergy [address] [place] [address] [address] [place] [address] 08/23/2023 09:03:10 08/23/2023 13:26:57 Perennial allergic rhinitis 357600388 J30.89 5606 [facility] Allergy [address] [place] [address] [address] [place] [address] 08/31/2023 08:49:58 08/31/2023 11:02:35 Perennial allergic rhinitis [id number] J30.89 6153 JUAQUIN YAÑEZ RN Allergy [address] [place] [address] [address] [place] [address] 09/05/2023 08:46:12 09/05/2023 10:03:05 Perennial allergic rhinitis [id number] J30.89 7075 KIAH LUCIO, [facility] Allergy [address] [place] [address] [address] [place] [address] 09/13/2023 08:41:30 09/13/2023 14:37:18 Perennial allergic rhinitis [id number] J30.89 8018 KIAH LUCIO [facility] Allergy [address] [place] [address] [address] [place] [address] 09/20/2023 10:16:20 09/21/2023 13:05:24 Perennial allergic rhinitis 495901491 J30.89 9049 JUAQUIN YAÑEZ RN Allergy [address] [place] [address] [address] [place] [address] 09/27/2023 09:14:35 09/27/2023 10:52:56 Perennial allergic rhinitis 110632508 J30.89 [id number] JUAQUIN YAÑEZ RN Allergy [address] [place] [address] it[address] 100 [facility] [place] [address] 10/04/2023 12:11:42 10/04/2023 12:14:07 Perennial allergic rhinitis [id number] J30.89 [id number] KIAH LUCIO Isabela Allergy 100 [facility] 100 [place] [address] 10/11/2023 09:43:29 10/11/2023 11:09:54 Perennial allergic rhinitis [id number] J30.89 [id number] JOSE VELÁZQUEZ MD [facility] 100 [facility] [place] [address] 10/19/2023 09:06:55 10/19/2023 10:05:09 Allergic rhinitis 82694605 J30.9 Doing well with immunother apy. EpiPen up-to-date . Abnormal a uditory perception 69372016 H93.291 Audio bilateral SNHL--stab le Subjective pulsatile tinnitus of right ear [id number] 824301 H93.A1 Previous MRA was negative. Deviated nasal septum 12 7561463 J34.2 mild Sensorineu ral hearing loss 07751143 H90.41 10-19-2023 udiologica l evaluation results: Right ear: Normal with a mild SNHL at 2000Hz with excellent word recognitio n. Left ear: Normal hearing with excellent word recognitio n. Tympanomet ry: Right Ear:Type A Left Ear:Type A [id number] JUAQUIN YAÑEZ RN Allergy [address] [place] [address],[facility] 100 [place] [address] 10/19/2023 10:26:27 10/19/2023 10:27:52 Perennial allergic rhinitis [id number] J30.89 [id number] JUAQUIN YAÑEZ RN Allergy [address] [place], [place] [address] 100 [place] [address] 10/27/2023 09:20:07 10/27/2023 13:21:33 Perennial allergic rhinitis 979566179 J30.89 [id number] JUAQUIN YAÑEZ RN Allergy [address] [place] [address],[facility] 100 [place] [address] 11/01/2023 10:42:48 11/01/2023 10:44:36 Perennial allergic rhinitis 100864004 J30.89 [id number] JUAQUIN YAÑEZ RN Allergy [address] [place] [address],[place] [address] [place] [address] 11/09/2023 11:26:12 11/09/2023 11:29:30 Perennial allergic rhinitis [id number] J30.89 [id number] KEN AGRAWAL, [facility] Allergy 100 [facility],[place] [address] [place] [address] 11/17/2023 09:40:52 11/17/2023 11:43:31 Perennial allergic rhinitis [id number] J30.89 [id number] JUAQUIN YAÑEZ RN Allergy [address] [place] [address],[place] [address] [place] [address] 11/23/2023 10:27:55 11/23/2023 10:32:23 Perennial allergic rhinitis 395021470 J30.89 [id number] JUAQUIN YAÑEZ RN Allergy [address] [place] [address], [address] [place] [address] 12/14/2023 11:23:54 12/14/2023 11:25:34 Perennial allergic rhinitis 953793865 J30.89 [id number] JUAQUIN YAÑEZ RN Allergy [address] [place] [address], [address] [place] [address] 12/21/2023 11:30:12 12/21/2023 11:31:30 Perennial allergic rhinitis [id number] J30.89 [id number] KIAH LUCIO [facility] Allergy [address] [place] [address], [address] [place] [address] 12/29/2023 09:38:10 12/29/2023 09:40:16 Perennial allergic rhinitis [id number] J30.89 [id number] JUAQUIN YAÑEZ RN Allergy [address] [place] [address],[place] [address] [place] [address] 01/03/2024 11:06:53 01/03/2024 11:08:17 Perennial allergic rhinitis [id number] J30.89 [id number] KIAH LUCIO [facility] Allergy [address] [place] [address],[place] [address] [place] [address] 01/10/2024 09:41:40 01/10/2024 09:42:52 Perennial allergic rhinitis [id number] J30.89 [id number] KIAH LUCIO Isabela Allergy [address] [place] [address],[place] [address] [place] [address] 01/19/2024 13:16:02 01/19/2024 13:20:09 Perennial allergic rhinitis [id number] J30.89 [id number] JUAQUIN YAÑEZ RN Allergy [address] [place] [address] [address] [place] [address] 01/24/2024 10:49:50 01/24/2024 10:52:32 Perennial allergic rhinitis [id number] J30.89 [id number] JUAQUIN YAÑEZ RN Allergy [address] [place] [address] [address] [place] [address] 02/03/2024 09:25:49 02/03/2024 09:35:31 Perennial allergic rhinitis [id number] J30.89 [id number] JUAQUIN YAÑEZ RN Allergy [address] [place] [address] ite [address] [place] [address] 02/07/2024 10:13:39 02/07/2024 10:14:50 Perennial allergic rhinitis [id number] J30.89 [id number] KIAH LUCIO Isabela [facility] [address] [place] [address] ite [address] [place] [address] 02/14/2024 11:05:15 02/14/2024 11:06:25 Perennial allergic rhinitis [id number] J30.89 [id number] JUAQUIN YAÑEZ RN Allergy [address] [place] [address] ite [address] [place] [address] 02/23/2024 10:00:14 02/23/2024 10:01:52 Perennial allergic rhinitis [id number] J30.89 [id number] JUAQUIN YAÑEZ RN Allergy [address] [place] [address] ite [address] [place] [address] 03/01/2024 09:37:35 03/01/2024 09:38:44 Perennial allergic rhinitis [id number] J30.89 [id number] KIAH LUCIO Isabela [facility] [address] [place] [address],[place] it[address] [place] [address] 03/08/2024 12:13:01 03/08/2024 12:14:59 Perennial allergic rhinitis [id number] J30.89 [id number] KIAH KHADIJAH, [facility] All[facility] [address] [place] [address], [place] [address] 03/13/2024 11:57:35 03/13/2024 11:59:25 Perennial allergic rhinitis [id number] J30.89 [id number] KEN AGRAWAL, [facility] Allergy [address] [place] [address], [place] [address] 03/20/2024 09:19:50 03/20/2024 09:23:46 Perennial allergic rhinitis [id number] J30.89 [id number] JUAQUIN YAÑEZ RN Allergy [address] [place] [address], [place] [address] 03/28/2024 10:20:37 03/28/2024 10:48:37 Perennial allergic rhinitis [id number] J30.89 [id number] JUAQUIN YAÑEZ RN Allergy [address] [place] [address], [place] [address] 04/03/2024 10:19:02 04/03/2024 10:20:47 Perennial allergic rhinitis [id number] J30.89 [id number] JOSE VELÁZQUEZ MD [facility] [address] [place] [address] 04/23/2024 09:16:11 04/23/2024 09:38:20 Allergic rhinitis [id number] J30.89 Doing well with immunother apy. New Epipen prescribed [id number] JUAQUIN YAÑEZ RN Allergy [address] [place], [place] [address]e 100 [place] [address] 04/23/2024 09:58:15 04/23/2024 09:59:52 Perennial allergic rhinitis [id number] J30.89 [id number] JUAQUIN YAÑEZ RN Allergy [address] [place] [address] 100 [place] [address] 05/01/2024 10:16:09 05/01/2024 10:21:59 Perennial allergic rhinitis [id number] J30.89 [id number] JUAQUIN YAÑEZ RN Allergy [address] [place] [address] [place] [address] 05/08/2024 09:53:32 05/08/2024 09:54:40 Perennial allergic rhinitis [id number] J30.89 [id number] KIAH KHADIJAH, [facility] Allergy [address] [place] [address], ite [address] [place] [address] 05/15/2024 12:02:41 05/15/2024 12:06:39 Perennial allergic rhinitis [id number] J30.89 [id number] KIAH KHADIJAH, [facility] Allergy [address] [place] [address], it[address] [place] [address] 05/22/2024 09:23:27 05/22/2024 09:30:49 Perennial allergic rhinitis [id number] J30.89 [id number] JUAQUIN YAÑEZ RN Allergy [address] [place] [address] it[address] [place] [address] 05/29/2024 10:30:47 05/29/2024 10:31:45 Perennial allergic rhinitis [id number] J30.89 [id number] JUAQUIN YAÑEZ RN Allergy [address] [place] [address], it[address] [place] [address] 06/13/2024 10:52:10 06/13/2024 10:59:44 Perennial allergic rhinitis [id number] J30.89 [id number] KIAH KHADIJAH, [facility] All[facility] [address] [place] [address], it[address] [place] [address] 06/26/2024 09:33:48 06/26/2024 09:35:30 Perennial allergic rhinitis [id number] J30.89 [id number] JUAQUIN YAÑEZ RN Allergy [address] [place] [address], it[address] [place] [address] 07/12/2024 09:49:37 07/12/2024 09:50:46 Perennial allergic rhinitis [id number] J30.89 [id number] KEN AGRAWAL, [facility] All[facility] [address] [place] [address], [address] [place] [address] 07/26/2024 10:25:42 07/26/2024 10:29:31 Perennial allergic rhinitis [id number] J30.89 Health Concerns Section Related Observation LastModified by Organization Detai ls LastModified Time None Recorded Concern Status LastModified by Organization Details LastModified Time None Recorded Advance Directives Directive None Recorded Payers Insurance Date Sequence Insurance Name Policy Number Policy Roche Covered Member ID Roche Member ID Guarantor Name 08/09/2024 1 KETAN: [facility] [id number] Shelia Fitzgerald [id number] Shelia Fitzgerald OBGyn Episode No OBEpisode recorded.
[2024-08-22 08:17] LABS: MANUAL DIFF FLAG NO
[2024-08-22 08:49] LABS: Basophils Absolute Auto 0.1 X10*3/uL (0.0-0.2); Basophils Percent Auto 1.4 % (0-2); Eosinophils Absolute Auto 0.1 X10*3/uL (0.0-0.4); Eosinophils Percent Auto 3.3 % (0-4); Hematocrit 42.3 % (37.0-47.0); Hemoglobin 13.7 g/dl (12.0-16.0); Imm Gran Abs Auto 0.02 X10*3/uL (0.00-0.03); Imm Gran Pct Auto 0.5 % (0.0-0.4); Lymphocytes Percent Auto 23.2 % (20-40); Mean Corpuscular HGB Conc 32.4 g/dl (31.0-35.0); Mean Corpuscular Hemoglobin 30.4 pg (27.0-33.0); Mean Platelet Volume 12.3 fL (9.4-12.3); Monocytes Absolute Auto 0.3 X10*3/uL (0.1-1.2); Monocytes Percent Auto 6.6 % (2-11); Neutrophils Absolute Auto 2.7 x10*3/uL (2.0-8.3); Platelet Count 170 X10*3/uL (160-400); Red Cell Distribution Width 13.8 % (11.0-16.0); White Blood Count 4.2 X10*3/uL (4.8-10.8)
[2024-08-22 09:17] LABS: Alanine Aminotransferase 28 U/L (0-31); Alkaline Phosphatase 73 U/L (39-117); Anion Gap 8 (12-20); Aspartate Amino Transferase 21 U/L (5-31); Bilirubin Total 0.6 mg/dL (0.0-1.0); Blood Urea Nitrogen 17 mg/dL (9-16); Calcium 9.3 mg/dL (8.4-10.2); Carbon Dioxide 25 mmol/L (22-29); Chloride 113 mmol/L (96-108); Estimated Glomerular Filt Rate > 60; Glucose Fasting 91 mg/dL (60-99); Potassium 4.1 mmol/L (3.3-5.1); Sodium 142 mmol/L (135-145); Total Protein 6.7 g/dL (6.5-8.0)
== END 2024-08-22 07:56 | disposition home or self-care (01) ==
LOC: HO.LAB 07:55
PROVIDERS: PCP Internal Medicine; Visit Provider Internal Medicine
DX: Z01.818 Encounter for other preprocedural examination (principal)
CPT/HCPCS: 36415; 80053; 85025; 93005

== ENCOUNTER → 2024-08-22 07:59 | Outpatient (BNV) | payer BC, SELFPAY | PROVIDERS: PCP Internal Medicine; Visit Provider Internal Medicine Cardiovascular Disease | DX: R00.1 Bradycardia, unspecified (principal) | CPT/HCPCS: 93010 ==

== ENCOUNTER 2024-09-13 13:56 | Outpatient (AMB) | payer BC, SELFPAY ==
--- OUTSIDE RECORDS SUMMARY | 2024-09-13 14:02 | XMS_ITS | Clinical Summary ---
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 30 each 2 04/03/19 25 Active esomeprazole (NexIUM) [address] capsule Take 1 capsule (40 mg total) by mouth 1 (one) time each day. 07/24/19 25 Active buPROPion XL (WELLBUTRIN XL) 150 mg 24 hr tabletIndications :Obesity, Class I, BMI 30-34.9 Take 1 tablet (150 mg total) by mouth 1 (one) time each day in the morning. 30 each 2 08/31/19 25 025 Active buPROPion XL (WELLBUTRIN XL) 150 mg 24 hr tabletIndications :Obesity, Class I, BMI 30-34.9 Take 1 tablet (150 mg total) by mouth 1 (one) time each day in the morning. 30 each 2 04/03/19 25 025 Discontin ued(Reord er) Active Problems Problem Noted Date Diagnosed Date Class 2 obesity with body ma ss index (BMI) of 35.0 to 35.9 in adult 02/01/2024 Abdominal pannus 08/24/2019 Diastasis recti 08/24/2019 Intertrigo 08/24/2019 Skin laxity 08/24/2019 Excess weight 03/29/2019 Intestinal malabsorption following gastrectomy 0 11/29/2017 Achalasia 08/19/2017 Encounters Date Type Department Care Team Description 07/26/2024 8:00 AM EDT Office Visit Bariatric Surgery - [address] [address] Radha West MD Class 1 obesity due to excess calories with body mass index (BMI) of 31.0 to 31.9 in adult, unspecified whether serious comorbidity present (Primary Dx) from Last 3 Months Surgical History Surgery Date Site/Laterality Comments CHOLECYSTECTOMY 02/23/2017 PROCEDURE: HISTORICAL CHOLECYSTECTOMY OTHER SURGICAL HISTORY 02/23/2017 PROCEDURE: ---- OTHER ----; COMMENT: Hiatal hernia repair, incidental finding during lap sleeve gastrectomy OTHER SURGICAL HISTORY 02/23/2017 PROCEDURE: ---- OTHER ----; COMMENT: Lap sleeve gastrectomy, Dr. West OTHER SURGICAL HISTORY PROCEDURE: ARTHROSCOPY PROCEDURE NEC SECTION PROCEDURE: CO DELIVERY ONLY OTHER SURGICAL HISTORY PROCEDURE: HISTORY OTHER; COMMENT: surgery for blood clot. Medical History Medical History Date Comments History of bariatric surgery 08/19/2017 DX: History of bariatric surgery; COMMENT: 02/23/2017 Laparoscopic sleeve gastrectomy, Dr. West Achalasia 08/19/2017 DX:Achalasia Morbid obesity with BMI of 45.0-49.9, adult ([facility] V24, [facility] V28) 08/19/2017 DX:Morbid obesity with BMI o f 45.0-49.9, adult ([facility]) Family History Medical History Relation [...] Sign Reading Time Taken Comments Blood Pressure 104/68 07/26/2024 8:08 AM EDT Pulse 67 07/26/2024 8:08 AM EDT Temperature 36.6 C (97.8 F) 07/26/2024 8:08 AM EDT Respiratory Rate - - Oxygen Saturation - - Inhaled Oxygen Concentration - - Weight 84.4 kg (186 lb) 07/26/2024 8:08 AM EDT Height 162.6 cm (5' 4 ) 07/26/2024 8:08 AM EDT Body Mass Index 31.93 07/26/2024 8:08 AM EDT Plan of Treatment Upcoming Encounters Date Type Department Care Team (Latest Contact Info) Description 10/23/2024 12:30 PM EDT Hospital Encounter [facility] OR [address] [place] [phone] Jenna Kwok MD [address] [place] [phone] 10/23/2024 12:30 PM EDT - 10/23/2024 4:00 PM EDT Surgery [facility] OR [address] [place] [phone] Jenna Kwok MD [address] [place] [phone] ABDOMINOPLASTY & PANNICULECTOMY [03716 (CPT ) +1 more] 01/22/2025 8:15 AM EST Office Visit Bariatric Surgery - [place] [address] [place] [phone] Radha West MD [address] [facility] [address] [place] [address] Scheduled Procedures Name Priority Associated Diagnoses Date/Ti me ABDOMINOPLASTY Excessive and redundant skin and subcutaneous tissue 10/23/2024 12:30 PM EDT Health Maintenance Due Date Last Done Comments Breast Cancer Screening 1970 Hepatitis B Vaccines (1 of 3 - [...] season) 2023 05/08/2020, 2020 Influenza Vaccine (#1) 2024 DTaP,Tdap,and Td Vaccines (2 - Td or Tdap) 04/25/2034 04/25/2024 HIB Vaccines Aged Out No longer eligi [...] 5 Years) and At-Risk Patients (6 to 49 Years) Aged Out No longer eligible b ased on patient's age to complete this topic RSV Immunization Patients Under 20 months Aged Out No longer eligible b ased on patient's age to complete this topic Varicella Vaccines Aged Out No longer eligible based on patient's age to complete this topic Procedures Procedure Name Priority Date/Time Associated Diagnosis Comments BASIC METABOLIC PANEL Routine 07/26/2024 8:23 AM EDT Class 1 obesity due to excess calories with body mass index (BMI) of 31.0 to 31.9 in adult, unspecified whether serious comorbidity present from Last 3 Months Results * (ABNORMAL) Basic metabolic panel (07/26/2024 8:23 AM EDT) Sodium 142 133 - 145 mmol/L LAB CHEMISTRY METHOD 07/26/2024 10:24 AM [facility] Potassium 3.7 3.5 - 5.5 mmol/L LAB CHEMISTRY METHOD 07/26/2024 10:24 AM [facility] Chloride 111(H) 96 - 110 mmol/L LAB CHEMISTRY METHOD 07/26/2024 10:24 AM [facility] CO2 23 21 - 32 mmol/L LAB CHEMISTRY METHOD 07/26/2024 10:24 AM [facility] Anion Gap 8 3 - 11 LAB CHEMISTRY METHOD 07/26/2024 10:24 AM [facility] Glucose 84 70 - 100 mg/dL LAB CHEMISTRY METHOD 07/26/2024 10:24 AM [facility] BUN 15 5 - 25 mg/dL LAB CHEMISTRY METHOD 07/26/2024 10:24 AM [facility] Creatinine 0.94 0.50 - 1.10 mg/dL LAB CHEMISTRY METHOD 07/26/2024 10:24 AM [facility] eGFR 73 >=60 mL/min/1. 73m2 LAB CHEMISTRY METHOD 07/26/2024 10:24 AM EDT [facility] Comment:Calculation based on the Chronic Kidney Disease Epidemiology Collaboration (CKD-EPI) equation refit without adjustment for race. 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
--- NOTE | 2024-09-13 14:07 | A.OFFPC_ITS ---
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 Required: No Accompanied by: Self / Same As Patient Allergies lactose Allergy (Intermediate, Verified 09/13/24 14:31) diarrhea oxycodone Adverse Reaction (Mild, Verified 09/13/24 14:31) Vomiting, stomach pain Medication List - Last Reconciled 09/13/24 by Bonnie Ahn MD apixaban (Eliquis) 2.5 mg PO BID bupropion HCl XL 150 mg PO DAILY epinephrine (EpiPen) 0.3 mg IM Q4H PRN esomeprazole magnesium (Nexium) 40 mg PO DAILY levothyroxine 25 mcg PO QAM 90 days multivitamin 1 tab PO DAILY tramadol 50 mg PO DAILY PRN 30 days Tobacco use date assessed: 04/25/24 Dental Screening Dental Screen Date: 04/25/24 HPI HPI Comments History of Present Illness Details The patient is a 54-year-old female presenting for a preoperative evaluation for a paniculectomy. She has a history of a short OK interval noted on her electrocardiogram, which has been consistent with previous results from 2021, but no arrhythmias have been detected. She reports no symptoms associated with this finding, and it does not contraindicate her upcoming surgery. The patient experiences lactose intolerance, which results in diarrhea upon consumption of lactose-containing products. Additionally, she reports vomiting as a side effect of oxycodone use. Her medication regimen includes apixaban, which she is advised to discontinue two days prior to surgery, bupropion, esomeprazole, levothyroxine, multivitamins, and tramadol as needed for knee pain. The tramadol is primarily used for left knee arthritis, which has been previously evaluated and managed with an arthroscopy. Her surgical history includes a gastric sleeve procedure in 2017, a thrombectomy of the left leg, endoscopy, colonoscopy, arthroscopy of the left knee, and two sections. Family history reveals her father at 63 due to diabetes and myocardial infarction, while her mother, who is alive, has hypertension and heart disease and is asthmatic. The patient does not smoke or consume alcohol. She engages in physical activity, including hiking, despite her knee condition, using a brace and walking sticks as recommended by her orthopedist. EKG and labs were reviewed. By RCRI patient is class 1 with 0.4% risk of cardiac complications. Patient is medically clear for surgery. Patient does have 5-7 Mets of ADLs. [facility] Medical History (Updated 09/13/24 @ 14:41 by Bonnie Ahn MD) Quintana's esophagus without dysplasia Deep vein thrombosis (07/28/22) Obesity (BMI 35.0-39.9 without comorbidity) Class 1 obesity with body mass index (BMI) of 34.0 to 34.9 in adult Thrombocytopenia Pancytopenia Osteoarthritis of left knee Hypovitaminosis D Toenail deformity Left shoulder pain Constipation by delayed colonic transit Hypothyroidism Surgical History History of esophagogastroduodenoscopy (EGD) H/O colonoscopy H/O gastric sleeve Venous insufficiency of left leg History of surgery History of cholecystectomy History of arthroscopy of left knee History of section Family History Father Diabetes CVD (cardiovascular disease) Myocardial infarction Mother CVD (cardiovascular disease) Hypertension Maternal Grandmother No problems noted. Maternal Grandfather Prostate cancer Family/Other Mental health disorder Social History Household Members: Spouse and Children Housing: House Are you a primary cardiac care nurse to a significant other at home: No Do you presently have visiting nurse or other home services: No Alcohol intake: never Comment: S3 Patient Tobacco Use Status: Never used Tobacco e-Cigarette/Vaping Use: Never Used Second Hand Smoke Exposure: No service: No Current occupational status: employed Current occupational exposures/hazards: No Cognitive needs: No Hearing needs: No Vision needs: Yes Questionnaire Thrive Questionnaire Date Thrive assessed: 04/18/24 I am a: Patient What is your living situation today?: I have a steady place to live Within the past 12 months, did the food you bought not last and you didn't have the money to get more?: Never true Within the past 12 months, did you worry whether your food would run out before you got money to buy more?: Never true Do you have trouble paying for medicines?: No Do you have trouble getting transportation to medical appointments?: No Do you have trouble paying your heating and electricity bill?: No Do you have trouble taking care of your child, family member or friend?: No Do you have trouble with day-to-day activities such as bathing, preparing meals, shopping, managing finances, etc.?: No Are you currently unemployed and looking for a job?: No Are you interested in more education?: No Please select the resources that you would like help with: None Currently or been in a relationship where the following occur: No concerns reported THRIVE Score: 0 DUSTY-7 AMB Questionnaire DUSTY-7 Date DUSTY - 7 assessed: 04/25/24 Source: Developed by Drs. Emery Lindquist, Judy Marie, Henry Sethi and colleagues, with an educational michelle from [employer]. Review of Systems Const All systems reviewed & are unremarkable except as noted in HPI and below Card Denies chest pain at rest, Denies chest pain with activity, Denies edema, Denies irregular heart rhythm, Denies claudication, Denies dyspnea, Denies dyspnea on exertion, Denies orthopnea, Denies paroxysmal nocturnal dyspnea and Denies slow heart rate Resp Denies cough, Denies dyspnea and Denies dyspnea on exertion GI Denies abdominal pain, Denies change in bowel habits, Denies excessive flatus, Denies nausea and Denies vomiting Denies urinary incontinence, Denies urinary hesitancy and Denies urinary urgency Musc Denies abnormal gait, Denies atrophy, Denies deformity and Denies limited range of motion Skin/Breast Denies bleeding lesions, Denies changing lesions and Denies rash Neuro Denies abnormal gait and Denies lack of coordination Physical exam (Primary Care) Vital Signs: Last Vital Signs Pulse 62 09/13/24 14:08 BP 110/76 09/13/24 14:08 Pulse Ox 99 09/13/24 14:08 Oxygen Delivery Method Room Air 09/13/24 14:08 BMI result Body Mass Index 32.6 Tobacco/Smoking Status: Tobacco use Status Tobacco use date assessed 04/25/24 09/13/24 14:21 Patient Tobacco Use Status Never used Tobacco 09/13/24 14:21 e-Cigarette/Vaping Use Never Used 09/13/24 14:21 Thrive Assessment: Date of Thrive Assessment Date Thrive assessed 04/18/24 09/13/24 14:21 Currently or been in a relationship where the following occur: No concerns reported Resp Effort & Inspection: normal respiratory effort Auscultation: clear to auscultation bilaterally Cardio Jugular venous distension: no JVD Rate: regular rate Rhythm: regular rhythm Heart sounds: S1 normal heart sound present and S2 normal heart sound present Skin General skin exam: no rashes or lesions noted Neuro General: no focal motor deficits Extrem General: Yes full ROM Psych Appearance: grossly normal Coding Level of Care Code Est Pt Level 4 (67214) Complex EM visit Add On G2211 Diagnoses Pre-op evaluation Z01.818 Chronic deep vein thrombosis (DVT) of distal vein of left lower extremity I82.5Z2 DVT location: lower extremity Affected thrombotic vein of extremity: unspecified lower extremity distal vein Chronicity: chronic Laterality: left Acquired hypothyroidism E03.9 Hypothyroidism type: acquired Quintana's esophagus without dysplasia K22.70 Osteoarthritis of left knee M17.12 Time Spent (min) 21 Assessment & Plan Assessment & Plan (1) Pre-op evaluation: Code(s): Z01.818 - Encounter for other preprocedural examination Category: Medical (2) Deep vein thrombosis: Onset Date: 07/28/22 Comment: 07/28/2022 - Left leg thrombectomy Code(s): I82.409 - Acute embolism and thrombosis of unspecified deep veins of unspecified lower extremity Category: Medical Qualifiers: DVT location: lower extremity Affected thrombotic vein of extremity: unspecified lower extremity distal vein Chronicity: chronic Laterality: left Qualified Code(s): I82.5Z2 - Chronic embolism and thrombosis of unspecified deep veins of left distal lower extremity (3) Hypothyroidism: Code(s): E03.9 - Hypothyroidism, unspecified Category: Medical Qualifiers: Hypothyroidism type: acquired Qualified Code(s): E03.9 - Hypothyroidism, unspecified (4) Quintana's esophagus without dysplasia: Code(s): K22.70 - Quintana's esophagus without dysplasia Category: Medical (5) Osteoarthritis of left knee: Code(s): M17.12 - Unilateral primary osteoarthritis, left knee Category: Medical Plan The patient is scheduled for a paniculectomy, and her preoperative evaluation indicates she is fit for surgery. She is advised to discontinue apixaban two days prior to the procedure to minimize bleeding risk. Her short OK interval on the electrocardiogram does not pose a risk for the surgery, and no further cardiac workup is necessary at this time. The patient should continue her current medication regimen, with adjustments as needed for her lactose intolerance and opioid-induced vomiting. She is encouraged to maintain her physical activity, using a knee brace and walking sticks to support her left knee arthritis. Patient was informed and verbally consented to the use of an ambient scribe for clinic note documentation during this visit. Orders: Orders Thyroid Stimulating Hormone 3 Months E03.9 - Hypothyroidism, unspecified
[2024-09-13 14:08] VITALS: BP 110/76; PULSE 62; O2SAT 99; BMI 32.6
== END 2024-09-13 14:39 | disposition home or self-care (01) ==
LOC: HO.HMCH 13:56
PROVIDERS: PCP Internal Medicine; Visit Provider Internal Medicine
DX: Z01.818 Encounter for other preprocedural examination (principal); I82.5Z2 Chronic embolism and thrombosis of unspecified deep veins of left distal lower extremity; E03.9 Hypothyroidism, unspecified; K22.70 Barrett's esophagus without dysplasia; M17.12 Unilateral primary osteoarthritis, left knee

== ENCOUNTER 2024-11-16 08:32 | Outpatient (REF) | payer BC, SELFPAY ==
--- OUTSIDE RECORDS SUMMARY | 2024-11-16 09:04 | XMS_ITS | Clinical Summary ---
Author Organization [address] [facility] Address [address] [place] [address] Phone Care Team Providers Care Insurance Agency Sales Manager Name Role Phone Bonnie Ahn MD Primary Care Provider [phone] Allergies Active Allergy Reactions Criticality Noted Date Comments Lactose GI intolerance High 07/26/2017 SWEATING Oxycodone Dizziness High 05/06/2022 Other Reaction(s): Chest tightness, VOMIT Medications cyclobenzaprin e HCl (CYCLOBENZAPRI NE ORAL) Take 10 mg by mouth if needed. Active EPINEPHRINE BASE, REFILL, INHL Inhale into the lungs. Active MULTIVITAMIN ORAL Take 50 mg by mouth 1 (one) time each day if needed. Active traMADoL (ULTRAM) 50 mg tablet Take 1 tablet (50 mg total) by mouth every 6 (six) hours if needed. Active levothyroxine sodium (LEVOTHYROXINE ORAL) Take 0.25 mg by mouth 1 (one) time each day. Active topiramate (TOPAMAX) 100 mg tabletIndicati ons:Obesity, Class I, BMI 30-34.9 Take 1 tablet (100 mg total) by mouth 1 (one) time each day. 30 each 2 Active Additional Information Patient not taking.Reported on 10/16/2024 esomeprazole (NexIUM) [address] capsule Take 1 capsule (40 mg total) by mouth 1 (one) time each day. Active buPROPion XL (WELLBUTRIN XL) 150 mg 24 hr tabletIndicati ons:Obesity, Class I, BMI 30-34.9 Take 1 tablet (150 mg total) by mouth 1 (one) time each day in the morning. 30 each 2 5 02/13/20 25 Active apixaban (ELIQUIS) 5 mg tablet Take 0.5 tablets (2.5 mg total) by mouth 2 (two) times a day. Stopping the med 3 days prior to sx 10/24/19 25 Discontin ued(Stop Taking at Discharge ) buPROPion XL (WELLBUTRIN XL) 150 mg 24 hr tabletIndicati ons:Obesity, Class I, BMI 30-34.9 Take 1 tablet (150 mg total) by mouth 1 (one) time each day in the morning. 30 each 2 5 11/11/19 25 Discontin ued(Reord er) Active Problems Problem Noted Date Diagnosed Date Class 2 obesity with body ma ss index (BMI) of 35.0 to 35.9 in adult 02/01/2024 Abdominal pannus 08/24/2019 Diastasis recti 08/24/2019 Intertrigo 08/24/2019 Skin laxity 08/24/2019 Excess weight 03/29/2019 Intestinal malabsorption following gastrectomy 0 11/29/2017 Achalasia 08/19/2017 Encounters Date Type Department Care Team Description 10/23/2024 3:08 PM EDT Anesthesia Event [facility] [place] [address] [place] [phone] Praveen Wren MD Couture, Alison, CRNA 10/23/2024 12:30 PM EDT - 10/23/2024 4:[address] [facility] [place] [address] [place] [phone] Jenna Kwok MD PANNICULECTOMY W/ DINORA DE LIS AND PLICATION [42527 (CPT ) +1 more] 10/23/2024 10:28 AM EDT - 10/23/2024 8:30 PM EDT Hospital Encounter [facility] [place] [address] [place] [phone] Jenna Kwok MD Discharge Disposition: Home or Self Care from Last 3 Months Surgical History Surgery Date Site/Laterality Comments CHOLECYSTECTOMY 02/23/2017 PROCEDURE: HISTORICAL CHOLECYSTECTOMY OTHER SURGICAL HISTORY 02/23/2017 PROCEDURE: ---- OTHER ----; COMMENT: Hiatal hernia repair, incidental finding during lap sleeve gastrectomy OTHER SURGICAL HISTORY 02/23/2017 PROCEDURE: ---- OTHER ----; COMMENT: Lap sleeve gastrectomy, Dr. West OTHER SURGICAL HISTORY Left PROCEDURE: ARTHROSCOPY PROCEDURE NEC KNEE SECTION PROCEDURE: CO DELIVERY ONLY OTHER SURGICAL HISTORY Left PROCEDURE: HISTORY OTHER; COMMENT: surgery for blood clot. Medical History Medical History Date Comments History of bariatric surgery 08/19/2017 DX: History of bariatric surgery; COMMENT: 02/23/2017 Laparoscopic sleeve gastrectomy, Dr. West Achalasia 08/19/2017 DX:Achalasia Morbid obesity with BMI of 4 5.0-49.9, adult ([facility] V24, [facility] V28) 08/19/2017 DX:Morbid obesity wit h BMI of 45.0-49.9, adult ([facility]) Dysphagia Disease of thyroid gland Hypothyroidism Hiatal hernia GERD (gastroesophageal reflux disease) Arthritis Joint pain l knee Clotting disorder ([facility] V24) DVT of lower extremity (deep venous thrombosis) ([facility] V24, [facility] V28) 2022 LEFT CALF Family History Medical History Relation Name Comments Diabetes Father Hypertension Mother Relation Name Status Comments Father Mother Alive Social History Tobacco Use Types Packs/Day Years Used Date Smoking Tobacco: Never Smokeless Tobacco: Never Alcohol Use Standard Drinks/Week Comments No 0 (1 standard drink = 0.6 oz pur e alcohol) Interpersonal Safety Answer Date Record ed Physical Abuse 10/23/2024 Verbal Abuse 10/23/2024 Comments No Sex and Gender Information Value Date Recorded Sex Assigned at Female 02/01/2024 3:01 PM EST Legal Sex Female 7:19 PM EST Gender Identity Female 02/01/2024 3:01 PM EST Sexual Orientation Straight 02/01/2024 3: 01 PM EST Obstetrics History Last Filed Vital Signs Vital Sign Reading Time Taken Comments Blood Pressure 122/67 10/23/2024 7:13 PM EDT Pulse 59 10/23/2024 7:13 PM EDT Temperature 36.2 C (97.2 F) 10/23/2024 7:13 PM EDT Respiratory Rate 18 10/23/2024 7:13 PM EDT Oxygen Saturation 99% 10/23/2024 7:13 PM EDT Inhaled Oxygen Concentration - - Weight 86.6 kg (191 lb) 10/16/2024 1:00 PM EDT Height 162.6 cm (5' 4 ) 10/16/2024 1:00 PM EDT Body Mass Index 32.79 10/16/2024 1:00 PM EDT Plan of Treatment Upcoming Encounters Date Type Department Care Team (Late st Contact Info) Description 01/22/2025 8:15 AM EST Office Visit Bariatric Surgery - [facility] [address] [place] [phone] Radha West MD [address] [place] [phone] Health Maintenance Due Date Last Done Comments Breast Cancer Screening 1972 Hepatitis B Vaccines (1 of 3 - 19+ 3-dose series) 1991 Cervical Cancer Screening: P ap Smear 1993 Cholesterol Screening (Lipid Panel) 02/13/2022 Colorectal Cancer Screening: Colonoscopy 02/13/2022 HIV Screening 02/13/2022 Hepatitis C Screening 02/13/2022 Social Influencers of Health Screening 02/13/2022 Pneumococcal Vaccine: 50+ Years (1 of 1 - PCV) 2022 Zoster Vaccines (1 of 2) 2022 Depression Screening 03/07/2024 COVID-19 Vaccine (3 - 2024-2 6 season) 2024 05/08/2020, 2020 Influenza Vaccine (#1) 2024 DTaP,Tdap,and [...] Procedure Name Priority Date/Time Associated Diagnosis Comments TH AN ENDOTRACHEAL(NO CHARGE) Routine 10/23/2024 3:26 PM EDT CO EXCISION EXCESSIVE SKIN AND SUBCUTANEOUS TISSUE ABDOMEN 10/23/2024 3:07 PM EDT Excessive and redundant skin and subcutaneous tissue Case Notes CC CO EXCISION EXCESSIVE SKIN SUBQ TISSUE ABD INFRAUMBILICAL PANNICULECTOMY 10/23/2024 3:07 PM EDT Excessive and redundant skin and subcutaneous tissue Case Notes CC POC PREGANCY, URINE SCREENING Routine 10/23/2024 10:47 AM EDT from Last 3 Months Results * TH AN ENDOTRACHEAL(NO CHARGE) (10/23/2024 3:26 PM EDT) Tali Nelson CRNA - 10/23/2024 3:26 PM EDT Tali Escobar CRNA 10/23/2024 3:27 PM General Information and Staff Patient location during procedure: OR Resident/HAND SHOE CUTTER: Tali Escobar CRNA Performed: resident/LIBERTY/CAA Performed by: Tali Escobar CRNA Authorized by: Cam Tello MD Intubation Airway not difficult Urgency: elective Final Airway Details Successful airway: ETT Cuffed: yes Successful intubation technique: direct laryngoscopy Facilitating devices/methods: intubating stylet Blade: Viri Blade size: #3 ETT size (mm): 7.5 Cormack-Lehane Classification: grade I - full view of glottis Placement verified by: chest auscultation and capnometry Measured from: lips ETT to lips (cm): 21 Number of attempts at approach: 1Final airway type: endotracheal airway Indications and Patient Condition Indications for airway management: anesthesia and airway protection Spontaneous ventilation: present Sedation level: Yes Preoxygenated: yes Soft Tissue Damage: No Dentition Unchanged: Yes Patient position: sniffing MILS maintained throughout Mask difficulty assessment: 1 - vent by mask us Cam Tello MD ANESTHESIA ORDERABLES Final Re sult * POC , urine NO CHARGE screening manually resulted (10/23/2024 10:47 AM EDT) HCG, Ur POC Negative Negative POC hCG Int QC Pass? Yes Yes Urine Urine specimen obtained by clean catch procedure / Unknown 10/23/2024 10:47 AM EDT us Jenna Kwok MD POINT OF CARE TEST ENTER/ED IT ORDERABLES Final Result from Last 3 Months Insurance Advance Directives * Full Code - Default (Latest Code Status on File) Date Activated Date Inactivated Comments 10/23/2024 10:36 AM 10/23/2024 10:30 PM This is or camron is used when code status has not been discussed with the patient, or code status is otherwise unknown/unconfirmed To update the patient's code status, place a code status order. Do not modify or discontinue any currently active code status orders. Care Teams Insurance Agency Sales Manager Relationship Specialty Start Date End Date Bonnie Ahn MD [address] [place] [address] , [facility] [address] [facility] D/B/A: [facility] [place] PCP - General Internal Medicine 03/29/19
[2024-11-16 10:31] LABS: Thyroid Stimulating Hormone 4.23 uIU/mL (0.32-4.0)
== END 2024-11-16 08:33 | disposition home or self-care (01) ==
LOC: HO.LAB 08:32
PROVIDERS: PCP Internal Medicine; Visit Provider Internal Medicine
DX: K22.70 Barrett's esophagus without dysplasia (principal); E03.9 Hypothyroidism, unspecified; K59.01 Slow transit constipation; K21.9 Gastro-esophageal reflux disease without esophagitis
CPT/HCPCS: 36415; 84443

== ENCOUNTER 2024-11-16 08:43 | Outpatient (AMB) | payer BC, SELFPAY ==
--- NOTE | 2024-11-16 08:52 | A.OFFVIS_ITS ---
Vital Signs 11/16/24 09:06 Height 5 ft 4 in Weight 186 lb BMI 31.9 BP 100/50 L Blood Pressure Location Rt brachial Position Sitting Pulse 60 Pulse Source Pulse Oximeter Pulse Oximetry (%) 100 Oxygen Delivery Method Room Air Intake Visit Reasons: 3 Month f/u, Quintana's esophagus without dysplasia Intake Note: Est pt for mgmt of Quintana's. CC: Pt denies any GI sx at this time. However, pt states that the pharmacy was not able to fill her esomeprazole for her most recent refill. Pt believes that it might need a new PA. No other concerns and pt still has some leftover med ication. 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 She will call us if medication will not be effective. Patient will try small meals and more often. Avoid dietary triggers and late night snacking. Staying upright for minimum 3 hours after meals discussed with patient. Patient will follow-up in 6 months, sooner on as needed basis. She is agreeable to this plan and verbalizes understanding of instructions. She was given the opportunity to ask questions and all questions answered. ? Thank you for allowing me to participate in her care New esomeprazole magnesium (Nexium) 40 mg PO DAILY 90 caps 2RF K21.9 Discontinued omeprazole Discontinued Reason: Doctor's Order 20 mg PO BID 60 caps 3RF TODAY'S VISIT Patient is here today for follow-up. Patient reports that she has been doing fairly well. She is currently taking esomeprazole, however patient went to the pharmacy to get refill and was told that the insurance is no longer covering esomeprazole. Patient reports that she stopped taking it for few days for her surgery (patient had abdominoplasty in October) and reports that she did not have any new symptoms. She denies having at that time acid reflux, dyspepsia, dysphagia or odynophagia. Patient reports that she is trying to avoid dietary triggers. Patient is trying to avoid eating late at night. Patient denies melena, hematochezia, unintentional weight loss or ribbon like stools. [facility] Medical History Quintana's esophagus without dysplasia Deep vein thrombosis (07/28/22) Obesity (BMI 35.0-39.9 without comorbidity) Class 1 obesity with body mass index (BMI) of 34.0 to 34.9 in adult Thrombocytopenia Pancytopenia Osteoarthritis of left knee Hypovitaminosis D Toenail deformity Left shoulder pain Constipation by delayed colonic transit Hypothyroidism Surgical History (Updated 11/16/24 @ 09:10 by BRITTNEE Lopez) S/P panniculectomy History of esophagogastroduodenoscopy (EGD) H/O colonoscopy H/O gastric sleeve Venous insufficiency of left leg History of surgery History of cholecystectomy History of arthroscopy of left knee History of section Family History Father Diabetes CVD (cardiovascular disease) Myocardial infarction Mother CVD (cardiovascular disease) Hypertension Maternal Grandmother No problems noted. Maternal Grandfather Prostate cancer Family/Other Mental health disorder Social History Household Members: Spouse and Children Housing: House Are you a primary day care provider to a significant other at home: No Do you presently have visiting nurse or other home services: No Alcohol intake: never Comment: S3 Patient Tobacco Use Status: Never used Tobacco e-Cigarette/Vaping Use: Never Used Second Hand Smoke Exposure: No service: No Current occupational status: employed Current occupational exposures/hazards: No Cognitive needs: No Hearing needs: No Vision needs: Yes Physical Exam Vital Signs: Last Vital Signs Pulse 60 11/16/24 09:06 BP 100/50 L 11/16/24 09:06 Pulse Ox 100 11/16/24 09:06 Oxygen Delivery Method Room Air 11/16/24 09:06 BMI result Body Mass Index 31.9 Assessment & Plan Assessment & Plan (1) Quintana's esophagus without dysplasia: Code(s): K22.70 - Quintana's esophagus without dysplasia Category: Medical (2) Constipation by delayed colonic transit: Code(s): K59.01 - Slow transit constipation Category: Medical (3) Gastroesophageal reflux disease: Code(s): K21.9 - Gastro-esophageal reflux disease without esophagitis Qualifiers: Esophagitis presence: esophagitis presence not specified Qualified Code(s): K21.9 - Gastro-esophageal reflux disease without esophagitis Plan Will switch to omeprazole 20 mg daily. Continue avoiding dietary triggers and late night snacking. Staying upright for minimum 3 hours after meals discussed with patient. Increase fluid intake and activity to promote better bowel motility. Follow-up in 6 months, sooner on as needed basis. Patient is agreeable to this plan and verbalizes understanding of instructions. She was given the opportunity to ask questions and all questions answered. Thank you for allowing me to participate in her care Medications: New omeprazole 20 mg PO DAILY 90 caps 2RF K21.9 - Gastro-esophageal reflux disease without esophagitis Coding Level of Care Code Est Pt Level 3 (38171) Diagnoses Quintana's esophagus without dysplasia K22.70 Constipation by delayed colonic transit K59.01 Gastroesophageal reflux disease, unspecified whether esophagitis present K21.9 Esophagitis presence: esophagitis presence not specified Time Spent (min) 25 Comment 15 minutes spent with patient and additional 10 minutes spent reviewing her records
[2024-11-16 09:06] VITALS: BP 100/50; PULSE 60; O2SAT 100; BMI 31.9
== END 2024-11-16 09:23 | disposition home or self-care (01) ==
LOC: HO.HGI 08:44
PROVIDERS: PCP Internal Medicine; Visit Provider Nurse Practitioner Family
DX: K22.70 Barrett's esophagus without dysplasia (principal); K59.01 Slow transit constipation; K21.9 Gastro-esophageal reflux disease without esophagitis
CPT/HCPCS: 99213

== ENCOUNTER 2024-12-18 08:08 | Outpatient (AMB) | payer BC, SELFPAY ==
--- OUTSIDE RECORDS SUMMARY | 2024-12-18 08:17 | XMS_ITS | Data Portability ---
Author Organization [place] - [facility], Allergy Address [address] [place] [phone] Care Team Providers Care Agricultural Consultant Name Role Phone TOD JENKINS Primary Care Provider Assessment Encounter Date Assessment Date Assessment LastModified by Organization Details LastModified Time 10/05/2024 10/05/2024 Visit With: Kiah Lucio Use of Antihistamines: No If yes: Vial Test Change in medications: No If yes Increase in asthma symptoms If yes, inhaler use: Reaction to last injections: No If yes: Allergy Symptoms: Other: Missed: Dose Aware of Vial Test Aware: Notes: [email or web address] Not available 10/05/2024 11:16:04 10/16/2024 10/16/2024 Visit With: Kiah Lucio Use of Antihistamines: Yes If yes: Vial Test Change in medications: No If yes Increase in asthma symptoms If yes, inhaler use: Reaction to last injections: No If yes: Allergy Symptoms: Other: Missed: Dose Aware of Vial Test Aware: Notes: [email or web address] Not available 10/16/2024 10:46:53 10/22/2024 10/22/2024 Patient is doing well on current immunotherapy program. They are compliant with therapy. Symptoms are improving, but not yet fully resolved. They will continue with treatment and followup in 6 months. All questions were answered. [email or web address] Not available 10/22/2024 10:44:27 11/02/2024 11/02/2024 Visit With: Juaquin Yañez RN Use of Antihistamines: No If yes: Vial Test Change in medications: No If yes Increase in asthma symptoms No Asthma Hx If yes, inhaler use: Reaction to last injections: No If yes: Allergy Symptoms: Other: Missed: Dose Aware of Vial Test Aware: Notes:Patient aware now monthly [email or web address] Not available 11/02/2024 10:24:38 11/27/2024 11/27/2024 Visit With: Kiah Lucio Use of Antihistamines: No If yes: Vial Test Change in medications: Yes If yes levothyroxine Increase in asthma symptoms If yes, inhaler use: Reaction to last injections: If yes: Allergy Symptoms: Other: Missed: Dose Aware of Vial Test Aware: Notes: [email or web address] Not available 11/27/2024 10:19:43 Plan of Treatment Reminders Order Date Submit Date Provider Last Modified By Organization Details Last Modified Time Details Appointments [facility] hed- Allergy f-up 6mon 2025 10:30A M KAMILLE FABIAN Not available Not available Not available Lab None recorded . Referral None recorded . Procedures None recorded . Surgeries None recorded . Imaging None recorded . Medication Orders EpiPen 2-Charli 0.3 mg/0.3 mL injectio n, auto-inj marii 2024 025 [facility], [address] [place] [address], [address], 10/22/2024 10:45:37 Patient TargetsNo targets recorded. Patient InstructionsNo instructions recorded. Reason for Referral None Reported. Problems Name Problem SNOMED Code Status Onset Date Resolution Date Notes Provider Name and Address Organization Details Recorded Time Achalasia of esophagus 24696996 Active 2022 Achalasia NOS; Note: Date Diagnosed : 06/23/2022 2:49 PM (K22.0) Not Available [facility] 4 03:10:05 Respirato ry finding 681360222 Active 2022 Feeling of foreign body in throat; Note: Date Diagnosed : 06/23/2022 2:49 PM (R09.89) Not Available [facility] 4 03:10:05 Cardiovas cular finding 069979236 Active 2022 Feeling of foreign body in throat; Note: Date Diagnosed : 06/23/2022 2:49 PM (R09.89) Not Available [facility] 4 03:10:05 Posterior rhinorrhe a 06819130 Active 2022 Postnasal drip; Note: Date Diagnosed : 06/23/2022 2:49 PM (R09.82) Not Available [facility] 4 03:10:04 Deviated nasal septum 926979915 Active 2022 Deviated nasal septum; Note: Date Diagnosed : 06/23/2022 2:49 PM (J34.2) Not Available [facility] 4 03:10:04 Allergic rhinitis 37337928 Active 2023 Allergic rhinitis: Due to other [...] Note: Date Diagnosed : 10/16/19 Not Available [facility] 4 01:25:32 Snoring 74245992 Active 2023 Snoring; Note: Date Diagnosed : 04/04/2023 8:51 AM (R06.83) Not Available [facility] 4 03:10:03 Obesity 541697466 Active 2023 Other obesity; Note: Date Diagnosed : 04/04/2023 8:51 AM (E66.8) Not Available [facility] 4 03:10:04 Tinnitus of vascular origin 421039905 Active 2023 Pulsatile tinnitus, right ear; Note: Date Diagnosed : 04/04/2023 8:49 AM (H93.A1) Not Available [facility] 4 03:10:04 Sensorine ural hearing loss 04601383 Active 2023 Sensorine ural hearing loss, unilatera l, right ear, with unrestric jaswant hearing on the contralat eral side; Note: Date Diagnosed : 04/04/2023 9:26 AM (H90.41) Not Available [facility] 4 03:10:05 Perennial allergic rhinitis 717328211 Active 2023 JUAQUIN YAÑEZ RN [address] [place] [address], [place], [address] , [facility] - [facility] 5 10:18:14 Abnormal auditory perceptio n 39612022 Active 2023 JOSE VELÁZQUEZ MD [address] [place] [address], [place], [address] , [place] - [facility] 4 21:49:47 Subjectiv e pulsatile tinnitus of right ear 60880904908 77490 Active 2023 JOSE VELÁZQUEZ MD [address] [place], [place] [address], [place], [address] , [place] - [facility] 4 21:53:02 Abnormal auditory perceptio n 79787678 Active 2023 JOSE VELÁZQUEZ MD [address] [facility] [address], [place], [address] , 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 Procedures Surgical History Date Name Laterality Status Provider Name and Address Organization Details Recorded Time 11/28/19 25 Allergy Immunotherapy Injections completed JUAQUIN YAÑEZ RN 100 [facility],[address], [address], [place] [facility] 11/27/2024 10:19:06 11/03/19 25 Allergy Immunotherapy Injections completed JUAQUIN YAÑEZ RN 100 [facility],[address], [address], [place] [facility] 11/02/2024 10:24:23 10/25/19 25 Allergy Immunotherapy Injections completed JUAQUIN YAÑEZ RN 100 [facility],[address], [address], [place] [facility] 10/24/2024 14:49:16 10/25/19 25 Allergy Immunotherapy Injections completed JUAQUIN YAÑEZ RN [address], [place], [address], [place] [facility] 10/24/2024 13:27:54 10/17/19 25 Allergy Immunotherapy Injections completed KEN CARDENAS, RMA [address], [place], [address], [place] [facility] 10/16/2024 10:46:47 10/06/19 25 Allergy Immunotherapy Injections completed KIAH LUCIO RMA [address], [place], [address], [place] [facility] 10/05/2024 11:15:58 09/05/19 25 Allergy Immunotherapy Injections completed SCOTTY RICE [address], [place], [address], [place] [facility] 09/04/2024 14:06:31 08/23/19 25 Allergy Immunotherapy Injections completed JUAQUIN YAÑEZ RN [address], [place], [address], [place] [facility] 08/22/2024 09:50:37 07/27/19 25 Allergy Immunotherapy Injections completed KEN CARDENAS, RMA [address], [place], [address], [place] [facility] 07/26/2024 10:28:09 07/13/19 25 Allergy Immunotherapy Injections completed JUAQUIN YAÑEZ RN [address], [place], [address], [place] [facility] 07/12/2024 09:50:19 06/27/19 25 Allergy Immunotherapy Injections completed JUAQUIN YAÑEZ RN [address], [place], [address], [place] [facility] 06/26/2024 09:35:05 06/14/19 25 Allergy Immunotherapy Injections completed JUAQUIN YAÑEZ RN [address], [place], [address], [place] [facility] 06/13/2024 10:59:19 05/30/19 25 Allergy Immunotherapy Injections completed JUAQUIN YAÑEZ RN [address] [place] [address], [address], [place] [facility] 05/29/2024 10:31:20 05/23/19 25 Allergy Immunotherapy Injections completed Isa Zaragoza [place] - [facility] 05/22/2024 09:24:53 05/16/19 25 Allergy Immunotherapy Injections completed KIAH LUCIO RMA [address], [place], [address], [place] [facility] 05/15/2024 12:04:32 05/09/19 25 Allergy Immunotherapy Injections completed KEN CARDENAS RMA [address], [place], [address], [place] [facility] 05/08/2024 09:54:06 05/01/19 25 Allergy Immunotherapy Injections completed KEN CARDENAS RMA [address] [place] [address], [address], [place] [facility] 05/01/2024 10:21:08 04/23/19 25 Allergy Immunotherapy Injections completed KIAH LUCIO RMA [address], [place], [address], [facility] - [facility] 04/23/2024 09:59:03 04/03/19 25 Allergy Immunotherapy Injections completed KEN CARDENAS RMA [address] [place] [address], [address], [place] [facility] 04/03/2024 10:20:26 03/28/19 25 Allergy Immunotherapy Injections completed JUAQUIN YAÑEZ RN [address], [place], [address], [place] [facility] 03/28/2024 10:48:14 03/20/19 25 Allergy Immunotherapy Injections completed KEN CARDENAS, RMA [address], [place], [address], [place] [facility] 03/20/2024 09:23:24 03/13/19 25 Allergy Immunotherapy Injections completed KEN CARDENAS, RMA [address], [place], [address], [place] [facility] 03/13/2024 11:58:51 03/08/19 25 Allergy Immunotherapy Injections completed KEN CARDENAS, RMA [address], [place], [address], [place] [facility] 03/08/2024 12:13:50 03/01/20 24 Allergy Immunotherapy Injections completed JUAQUIN YAÑEZ RN [address], [place], [address], [place] [facility] 03/01/2024 09:38:10 02/23/20 24 Allergy Immunotherapy Injections completed JUAQUIN YAÑEZ RN [address] [place] [address], [address], [place] [facility] 02/23/2024 10:01:24 02/14/20 24 Allergy Immunotherapy Injections completed KEN CARDENAS, A [address] [place] [address], [address], [place] [facility] 02/14/2024 11:05:56 02/07/20 24 Allergy Immunotherapy Injections completed JUAQUIN YAÑEZ RN [address] [place] [address], [address], [place] [facility] 02/07/2024 10:14:23 02/03/20 24 Allergy Immunotherapy Injections completed SCOTTY RICE [address] [place] [address], [address], [place] [facility] 02/03/2024 09:34:55 01/24/20 24 Allergy Immunotherapy Injections completed JUAQUIN YAÑEZ RN [address] [place] [address], [address], [place] [facility] 01/24/2024 10:50:50 01/19/20 24 Allergy Immunotherapy Injections completed SCOTTY RICE [address], [place], [address], [place] [facility] 01/19/2024 13:18:23 01/10/20 24 Allergy Immunotherapy Injections completed SCOTTY RICE [address], [place], [address], [place] [facility] 01/10/2024 09:42:22 01/03/20 24 Allergy Immunotherapy Injections completed JUAQUIN YAÑEZ RN [address], [place], [address], [place] [facility] 01/03/2024 11:08:00 12/29/19 24 Allergy Immunotherapy Injections completed SCOTTY RICE [address], [place], [address], [place] [facility] 12/29/2023 09:38:54 12/21/19 24 Allergy Immunotherapy Injections completed SCOTTY GUTHRIE [address], [place], [address], [place] [facility] 12/21/2023 11:30:52 12/14/19 24 Allergy Immunotherapy Injections completed JUAQUIN YAÑEZ RN [address] [place] [address], [address], [place] [facility] 12/14/2023 11:25:12 11/23/19 24 Allergy Immunotherapy Injections completed SCOTTY GUTHREI [address], [place], [address], [place] [facility] 11/23/2023 10:31:13 11/17/19 24 Allergy Immunotherapy Injections completed SCOTTY GUTHRIE [address] [place] [address], [address], [place] [facility] 11/17/2023 09:42:16 11/09/19 24 Allergy Immunotherapy Injections completed JUAQUIN YAÑEZ RN [address] [place] [address], [address], [place] [facility] 11/09/2023 11:29:05 11/01/19 24 Allergy Immunotherapy Injections completed JUAQUIN YAÑEZ RN [address], [place], [address], [place] [facility] 11/01/2023 10:43:38 10/27/19 24 Allergy Immunotherapy Injections completed KEN CARDENAS, RMA [address], [place], [address], [place] [facility] 10/27/2023 11:59:30 10/19/19 24 Allergy Immunotherapy Injections completed JUAQUIN YAÑEZ RN [address] [facility], [place], [address], [place] [facility] 10/19/2023 10:27:27 10/19/19 24 Air & Speech Audio with Tymps - [id number], 97981 & 69881 completed DARRIUS OSMAN MA, CCC-A [address] [facility] [facility], [place], [address], [place] [facility] 10/19/2023 09:45:15 10/11/19 24 Allergy Immunotherapy Injections completed SCOTTY RICE [address] [facility] [address], [address], [place] [facility] 10/11/2023 09:44:13 10/04/19 24 Allergy Immunotherapy Injections completed KEN CARDENAS, Isabela [address] [facility], [place], [address], [place] [facility] 10/04/2023 12:12:37 09/27/19 24 Allergy Immunotherapy Injections completed JUAQUIN YAÑEZ RN [address] [facility] [address] [place] [address], [address], [place] [facility] 09/27/2023 10:51:29 09/20/19 24 Allergy Immunotherapy Injections completed JUAQUIN YAÑEZ RN [address] [place] [address], [address], [place] [facility] 09/20/2023 10:20:29 09/13/19 24 Allergy Immunotherapy Injections completed SCOTTY RICE [address] [place] [address], [address], [place] [facility] 09/13/2023 12:56:00 09/05/19 24 Allergy Immunotherapy Injections completed JUAQUIN YAÑEZ RN [address] [facility] [place] [address], [address], [place] - [facility] 09/05/2023 09:56:55 08/31/19 24 Allergy Immunotherapy Injections completed KIAH LUCIO, RMA [address] [facility] [place] [address], [address], [facility] - [facility] 08/31/2023 09:14:03 08/23/19 24 Allergy Immunotherapy Injections completed KEN RASTALEANAC, RMA [address] [facility] [address], [address], [facility] - [facility] 08/23/2023 09:35:11 08/17/19 24 Allergy Immunotherapy Injections completed KEN KORZEC, RMA [address] [facility] [address], [address], [facility] - [facility] 08/17/2023 10:13:24 08/10/19 24 Allergy Immunotherapy Injections completed KEN RASTAZEC, RMA 100 [facility],[address], [address], [facility] - [facility] 08/10/2023 11:14:06 08/03/19 24 Allergy Immunotherapy Injections completed JUAQUIN YAÑEZ RN 100 [facility],[address], [address], [facility] - [facility] 08/03/2023 10:25:33 07/27/19 24 Allergy Immunotherapy Injections completed KEN RASTAZEC, RMA [address] [facility] [address], [address], [facility] - [facility] 07/27/2023 10:39:49 07/21/19 24 Allergy Immunotherapy Injections completed KEN RASTAZEC, RMA 100 [facility],[address], [place], [address], [facility] - [facility] 07/21/2023 10:29:54 Imaging Results None recorded. Procedure Notes None recorded. Medical Equipment None Reported. Allergies Allergen ID Allergen Name Allergen Category Reaction Reaction Severity Criticality Documentation Date Start Date Code Code System Note Provider Name and Address Organization Details Recorded Time 667620 oxycodone medicatio n vomiting moderate Not available 07/19/2023 5262 RxNorm JOSE STONE MD 100 [facility],[address], [place], [address], [facility] - [facility] 5 10:59:02 151724 lactose Not available diarrhea severe Not available 07/19/2023 6211 RxNorm JOSE STONE MD 100 [facility], [place], [address], [facility] 5 10:59:02 Medications Name Sig Start Date Stop Date Status Note LastModified by Organization Details LastModified Time iron 65mg tab TAKE 1 TABLET BY MOUTH ONCE DAILY 10/22 completed Not Available Not Available Not Available cyclobenz aprine 10 mg tablet 1 tablet as needed by oral route. 2024 active Not Available Not Available Not Avai lable sucralfat e 100 mg/mL oral suspensio n TAKE 10ML BY MOUTH 4 TIMES A DAY, SWISH IN MOUTH AND SWALLOW, USE AFTER FOOD OR DRINK 10/22 completed Not Available Not Available Not Available meloxicam 15 mg tablet 09/08 completed Medicati on ID: [id number] B clyde Name: meloxica sergio Send Method: E-Prescr ibed [...] Available Not Available tramadol 50 mg tablet 1 tablet as needed by oral route. 2024 active Not Available Not Available Not Avai lable levothyro xine 25 mcg tablet TAKE 1 TABLET BY MOUTH ONCE DAILY IN THE MORNING active Not Available Not Available No t Available hydromorp nina 2 mg tablet TAKE 1 TABLET BY MOUTH EVERY 6 HOURS NEEDED FOR PAIN active Not Available Not Available No t Available ferrous sulfate 325 mg (65 mg iron) tablet TAKE 1 TABLET BY MOUTH ONCE DAILY 10/22 completed Not Available Not Available Not Available esomepraz ole magnesium 40 mg capsule,d elayed release TAKE 1 CAPSULE BY MOUTH ONCE [...] TAKE 1 CAPSULE BY MOUTH TWICE DAILY 10/22 completed Not Available Not Available Not Available budesonid e 0.5 mg/2 mL suspensio [...] TAKE 1 TABLET BY MOUTH ONCE DAILY 10/22 completed Not Available Not Available Not Available fluticaso ne propionat e 50 mcg/actua tion nasal spray,allen pension 04/19 completed Not Available Not Available Not Available spironola ctone 50 mg tablet 04/19 completed Not Available Not Available Not Available Daily Multi-Vit schaefer tablet active Medicati on ID: [id number] B rand Name: Daily Multi-Vi tamin Se [...] tablet twice a day by oral route. 10/22 completed Not Available Not Available Not Available Nexium 10/22 completed Not Available Not Available Not Available Qsymia 11.25 mg-69 mg capsule, extended release 02/13 /2025 completed Not Available Not Available Not Available [...] (7) tablet 09/08 completed Medicati on ID: [id number] B rand Name: Jenise Wright 03/26 () Sen d Method: E-Prescr ibed Sub s Allowed: subs OK Medic ationGen ericName : Jenise Wright 03/26 () Not Available Not Available Not Available Vitals Date Recorded Body height Body mass index (BMI) Body weight Systolic And Diastolic Provider Name and Address Organization Details Last Updated DateTime 10/22/2024 162.56 cm 32.6 kg/m2 64030.55 g 124/68 mm[Hg] Nga Baron [place] - [facility] 10/22/2024 10:19:05 Social History Question Answer Notes LastModified by Organizat ion Details LastModified Time Tobacco Smoking Status Never Smoker JOSE DIXON MD [address] [place] [address], [address] [place] - [facility] 10/22/2024 10:59:27 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 None Information not available 10/22/2024 Do You Have Any Pets? No Information not available 10/22/2024 Are You Passively Exposed To Smoke? No Information not available 10/22/2024 Are There Any Smokers In Your House? No Information not available 10/22/2024 Sex: Female Functional Status Question Answer Note LastModified by Organization Details LastModified Time Do you use any illicit or recreational drugs? No Information not available 10/22/2024 Do you or have you ever used any other forms of tobacco or nicotine? No Information not available 10/22/2024 What is your level of alcohol consumption? None Information not available 10/22/2024 What type of noise exposure are you exposed to? noExposureToExcessiveNoise Infor mation not available 10/22/2024 Mental Status None recorded. Family History Relationship Description Onset Age of this Age Resolved Age Notes LastModified by Organization Details LastModified Time Mother Asthma [email or web address] Not availa ble 10/22/2024 10:59:06 Sister Asthma jschreibstein Not availa ble 10/22/2024 10:59:06 Sister Complication of anesthesia jschreibstein Not available 0 10/22/2024 10:59:06 Sister Allergy to food jschreibstein Not available 10:59:06 Sister Disorder of thyroid gland jschreibstein Not available 10:59:06 Father Diabetes mellitus jschreibstein Not available 10:59:06 Medical History Condition Response Allergies/Hayfever Y Heart Problems N Anxiety N Tonsil Infections N Emphysema N Migraines N Thyroid Problems Y COPD N Depression N Developmental Delay N Glaucoma N Nasal or Sinus Problems Y Anemia Y Immune System Disorder N Anesthesia Complications N Heart Attack ([place]) N Other Skin Condition N Diabetes N Rhinitis N Bleeding Disorder N Food Allergy Y Hearing Loss N Arthritis Y Hyperlipidemia N Cancer N Stroke N Dementia N Nasal polyps N Asthma N Sleep Disorder N High Cholesterol N GERD/Reflux Y Liver Disease N Headaches N Fibromyalgia N Hypertension N Speech Delay N Kidney Disease N Gynecological HistoryNo gynecological history recorded. Obstetrics History GPAL:G 0 P 0 0 0 0 Past Encounters Encounter ID Performer Location Encounter Start Date Encounter Closed Date Diagnosis/Indication Diagnosis SNOMED-CT Code Diagnosis ICD10 Code Diagnosis IMO Codes Diagnosis Note 492 JUAQUIN YAÑEZ RN Allergy 100 [facility],[place] [address] 100 [place] [address] 07/21/2023 10:01:06 07/22/2023 13:03:52 Perennial allergic rhinitis [id number] J30.89 1117 KEN CARDENAS [facility] Allergy 100 [facility] 100 [facility] [address] 07/27/2023 10:17:14 07/27/2023 11:20:05 Perennial allergic rhinitis [id number] J30.89 1806 JUAQUIN YAÑEZ RN Allergy 100 [facility],[place] [address] [place] [address] 08/03/2023 10:24:55 08/03/2023 13:01:24 Perennial allergic rhinitis [id number] J30.89 2837 [facility], A Allergy 100 [facility],[place] [address] [place] [address] 08/10/2023 10:49:51 08/10/2023 11:19:10 Perennial allergic rhinitis [id number] J30.89 3726 KIAH LUCIO A Allergy [address] [place] [address],[place] [address] [place] [address] 08/17/2023 09:07:38 08/17/2023 11:14:32 Perennial allergic rhinitis [id number] J30.89 4459 [facility], A Allergy [address] [place] [address],[place] [address] [place] [address] 08/23/2023 09:03:10 08/23/2023 13:26:57 Perennial allergic rhinitis [id number] J30.89 5606 [facility], A Allergy [address] [place] [address],[place] [address] [place] [address] 08/31/2023 08:49:58 08/31/2023 11:02:35 Perennial allergic rhinitis [id number] J30.89 6153 JUAQUIN YAÑEZ RN Allergy [address] [place] [address],[place] [address] [place] [address] 09/05/2023 08:46:12 09/05/2023 10:03:05 Perennial allergic rhinitis [id number] J30.89 7075 KIAH LUCIO A Allergy [address] [place] [address],[place] [address] [place] [address] 09/13/2023 08:41:30 09/13/2023 14:37:18 Perennial allergic rhinitis [id number] J30.89 8018 KIAH LUCIO A Allergy 100 [facility],[place] [address] [place] [address] 09/20/2023 10:16:20 09/21/2023 13:05:24 Perennial allergic rhinitis [id number] J30.89 9049 JUAQUIN YAÑEZ RN Allergy [address] [place] [address], [place] [address] 09/27/2023 09:14:35 09/27/2023 10:52:56 Perennial allergic rhinitis [id number] J30.89 [id number] JUAQUIN YAÑEZ RN Allergy [address] [place] [address], [place] [address] 10/04/2023 12:11:42 10/04/2023 12:14:07 Perennial allergic rhinitis [id number] J30.89 [id number] KIAH LUCIO Isabela Allergy [address] [place] [address], [place] [address] 9 10/11/2023 09:43:29 10/11/2023 11:09:54 Perennial allergic rhinitis [id number] J30.89 [id number] JOSE VELÁZQUEZ MD [facility] of [address] [address] 10/19/2023 09:06:55 10/19/2023 10:05:09 Allergic rhinitis 30250127 J30.9 Doing well with immunother apy. EpiPen up-to-date . Abnormal a uditory perception 69208787 H93.291 Audio bilateral SNHL--stab le Subjective pulsatile tinnitus of right ear [id number] H93.A1 Previous MRA was negative. Deviated nasal septum 12 3466955 J34.2 mild Sensorineu ral hearing loss 78736665 H90.41 10-19-2023 udiologica l evaluation results: Right ear: Normal with a mild SNHL at 2000Hz with excellent word recognitio n. Left ear: Normal hearing with excellent word recognitio n. Tympanomet ry: Right Ear:Type A Left Ear:Type A 70004 JUAQUIN YAÑEZ RN Allergy [address] [place] [address],[facility] [address] [place] [address] 10/19/2023 10:26:27 10/19/2023 10:27:52 Perennial allergic rhinitis [id number] J30.89 [id number] JUAQUIN YAÑEZ RN Allergy [address] [place] [address] [place] [address] 10/27/2023 09:20:07 10/27/2023 13:21:33 Perennial allergic rhinitis 546381713 J30.89 [id number] JUAQUIN YAÑEZ RN Allergy [address] [place] [address] it[address] [place] [address] 11/01/2023 10:42:48 11/01/2023 10:44:36 Perennial allergic rhinitis [id number] J30.89 [id number] JUAQUIN YAÑEZ RN Allergy [address] [place] [address] it[address] [place] [address] 11/09/2023 11:26:12 11/09/2023 11:29:30 Perennial allergic rhinitis [id number] J30.89 [id number] KEN AGRAWAL, [facility] Allergy [address] [place] [address] it[address] [place] [address] 11/17/2023 09:40:52 11/17/2023 11:43:31 Perennial allergic rhinitis [id number] J30.89 [id number] JUAQUIN YAÑEZ RN Allergy [address] [place] [address] it[address] [place] [address] 11/23/2023 10:27:55 11/23/2023 10:32:23 Perennial allergic rhinitis [id number] J30.89 [id number] JUAQUIN YAÑEZ RN Allergy [address] [place] [address] it[address] [place] [address] 9 12/14/2023 11:23:54 12/14/2023 11:25:34 Perennial allergic rhinitis [id number] J30.89 [id number] JUAQUIN YAÑEZ RN Allergy [address] [place] [address] [address] [place] [address] 12/21/2023 11:30:12 12/21/2023 11:31:30 Perennial allergic rhinitis [id number] J30.89 [id number] KIAH LUCIO, [facility] Allergy [address] [place] [address] it[address] [place] [address] 12/29/2023 09:38:10 12/29/2023 09:40:16 Perennial allergic rhinitis [id number] J30.89 [id number] JUAQUIN YAÑEZ RN Allergy [address] [place] [address] it[address] [place] [address] 01/03/2024 11:06:53 01/03/2024 11:08:17 Perennial allergic rhinitis [id number] J30.89 [id number] KIAH KHADIJAH, [facility] Allergy [address] [place] [address],[place] [address] [place] [address] 01/10/2024 09:41:40 01/10/2024 09:42:52 Perennial allergic rhinitis [id number] J30.89 [id number] KIAH LUCIO, [facility] Allergy [address] [place] [address], it[address] [place] [address] 01/19/2024 13:16:02 01/19/2024 13:20:09 Perennial allergic rhinitis [id number] J30.89 [id number] JUAQUIN YAÑEZ RN Allergy [address] [place] [address] it[address] [place] [address] 01/24/2024 10:49:50 01/24/2024 10:52:32 Perennial allergic rhinitis [id number] J30.89 [id number] JUAQUIN YAÑEZ RN Allergy [address] [place] [address] it[address] [place] [address] 02/03/2024 09:25:49 02/03/2024 09:35:31 Perennial allergic rhinitis [id number] J30.89 [id number] JUAQUIN YAÑEZ RN Allergy [address] [place] [address] it[address] [place] [address] 02/07/2024 10:13:39 02/07/2024 10:14:50 Perennial allergic rhinitis [id number] J30.89 [id number] KIAH LUCIO, [facility] Allergy [address] [place] [address],[place] [address] [place] [address] 02/14/2024 11:05:15 02/14/2024 11:06:25 Perennial allergic rhinitis [id number] J30.89 [id number] JUAQUIN YAÑEZ RN Allergy [address] [place] [address] it[address] [place] [address] 02/23/2024 10:00:14 02/23/2024 10:01:52 Perennial allergic rhinitis [id number] J30.89 [id number] JUAQUIN YAÑEZ RN Allergy [address] [place] [address],[place] [address] [place] [address] 03/01/2024 09:37:35 03/01/2024 09:38:44 Perennial allergic rhinitis [id number] J30.89 [id number] KIAH LUCIO, [facility] Allergy [address] [place] [address],[place] [address] [place] [address] 03/08/2024 12:13:01 03/08/2024 12:14:59 Perennial allergic rhinitis [id number] J30.89 [id number] KIAH LUCIO, [facility] Allergy [address] [place] [address], it[address] [place] [address] 9 03/13/2024 11:57:35 03/13/2024 11:59:25 Perennial allergic rhinitis [id number] J30.89 [id number] [facility], [facility] Allergy [address] [place] [address], [address] [place] [address] 03/20/2024 09:19:50 03/20/2024 09:23:46 Perennial allergic rhinitis [id number] J30.89 [id number] JUAQUIN YAÑEZ RN Allergy [address] [place] [address], [address] [place] [address] 03/28/2024 10:20:37 03/28/2024 10:48:37 Perennial allergic rhinitis [id number] J30.89 [id number] JUAQUIN YAÑEZ RN Allergy [address] [place] [address], [address] [place] [address] 04/03/2024 10:19:02 04/03/2024 10:20:47 Perennial allergic rhinitis [id number] J30.89 [id number] JOSE VELÁZQUEZ MD [facility] [place] 100 [facility] [place] [address] 04/23/2024 09:16:11 04/23/2024 09:38:20 Allergic rhinitis 70613299 J30.89 Doing well with immunother apy. New Epipen prescribed [id number] JUAQUIN YAÑEZ RN Allergy [address] [place] [address],[place] [address] [place] [address] 04/23/2024 09:58:15 04/23/2024 09:59:52 Perennial allergic rhinitis [id number] J30.89 [id number] JUAQUIN YAEÑZ RN Allergy [address] [place] [address],[place] [address] [place] [address] 05/01/2024 10:16:09 05/01/2024 10:21:59 Perennial allergic rhinitis [id number] J30.89 [id number] JUAQUIN YAÑEZ RN Allergy [address] [place] [address], [address] [place] [address] 05/08/2024 09:53:32 05/08/2024 09:54:40 Perennial allergic rhinitis [id number] J30.89 [id number] KIAH LUCIO [facility] Allergy [address] [place] [address], it[address] [place] [address] 05/15/2024 12:02:41 05/15/2024 12:06:39 Perennial allergic rhinitis [id number] J30.89 [id number] KIAH LUCIO [facility] Allergy [address] [place] [address] it[address] [place] [address] 05/22/2024 09:23:27 05/22/2024 09:30:49 Perennial allergic rhinitis [id number] J30.89 [id number] JUAQUIN AYÑEZ RN Allergy [address] [place] [address], [address] [place] [address] 05/29/2024 10:30:47 05/29/2024 10:31:45 Perennial allergic rhinitis [id number] J30.89 [id number] JUAQUIN YAÑEZ RN Allergy [address] [place] [address], [address] [place] [address] 06/13/2024 10:52:10 06/13/2024 10:59:44 Perennial allergic rhinitis [id number] J30.89 [id number] KIAH LUCIO [facility] Allergy [address] [place] [address],[place] [address] [place] [address] 06/26/2024 09:33:48 06/26/2024 09:35:30 Perennial allergic rhinitis [id number] J30.89 [id number] JUAQUIN YAÑEZ RN Allergy [address] [place] [address],[place] [address] [place] [address] 07/12/2024 09:49:37 07/12/2024 09:50:46 Perennial allergic rhinitis [id number] J30.89 [id number] [facility], A Allergy 100 [facility],[place] [address] [place] [address] 07/26/2024 10:25:42 07/26/2024 10:29:31 Perennial allergic rhinitis [id number] J30.89 [id number] JUAQUIN YAÑEZ RN Allergy [address] [place] [address],[facility] [address] [place] [address] 08/22/2024 09:50:07 08/22/2024 09:51:04 Perennial allergic rhinitis [id number] J30.89 [id number] [facility], [facility] Allergy [address] [place] [address], [address] [place] [address] 09/04/2024 14:05:56 09/04/2024 16:49:17 Perennial allergic rhinitis [id number] J30.89 [id number] KIAH LUCIO [facility] Allergy [address] [place] [address], [address] [place] [address] 10/05/2024 11:15:30 10/05/2024 11:16:22 Perennial allergic rhinitis [id number] J30.89 [id number] KIAH LUCIO [facility] Allergy [address] [place] [address], [address] [place] [address] 10/16/2024 10:46:07 10/16/2024 10:47:08 Perennial allergic rhinitis [id number] J30.89 [id number] JOSE VELÁZQUEZ MD [facility] - [place] [address] [place] [address] 10/22/2024 09:42:24 10/22/2024 10:43:52 Allergic rhinitis [id number] J30.89 Doing well with immunother apy. New Epipen prescribed [id number] JUAQUIN YAÑEZ RN Allergy [address] [place] [address],[place] [address] [place] [address] 10/24/2024 13:27:09 10/24/2024 13:28:55 Perennial allergic rhinitis [id number] J30.89 [id number] JUAQUIN YAÑEZ RN Allergy [address] [place] [address],[place] [address] [place] [address] 10/24/2024 14:48:27 10/24/2024 14:49:44 Perennial allergic rhinitis [id number] J30.89 [id number] JUAQUIN YAÑEZ RN Allergy [address] [place] [address],[facility] 100 [facility] [address] 11/02/2024 10:03:59 11/02/2024 10:24:55 Perennial allergic rhinitis [id number] J30.89 [id number] SCOTTY RICE Allergy 100 [facility] 100 [facility] [address] 11/27/2024 10:10:00 11/27/2024 10:20:05 Perennial allergic rhinitis 501754983 J30.89 Health Concerns Section Related Observation LastModified by Organization Detai ls LastModified Time None Recorded Concern Status LastModified by Organization Details LastModified Time None Recorded Advance Directives Directive None Recorded Payers Insurance Date Sequence Insurance Name Policy Number Policy Roche Covered Member ID Roche Member ID Guarantor Name 11/27/2024 1 [facility]: [facility] ([facility] [id number] Shelia Javierisabela [id number] Shelia Fitzgerald Notes Date Note Type Note Provider Name and Address Organization Details Recorded Time 10/22/2024 text/html ROS as noted in the HPI Patient seen in follow-up for allergy injection immunotherapy. Therapy initiated 10/2022. Currently on a biweekly regimen. She is doing well tolerating the therapy and progressing per the flow sheet. No adverse reactions. No need for any acute medications. Not currently using any intranasal or oral medications.No history of asthma. Needs an updated EpiPen script. JOSE DIXON MD [address] [place] [address], [phone], [facility] - [facility] 10/22/2024 11:52:29 OBGyn Episode No OBEpisode recorded.
--- OUTSIDE RECORDS SUMMARY | 2024-12-18 08:17 | XMS_ITS | Clinical Summary ---
Author Organization 175 [facility] Address [address] [place] [address] Phone Care Team Providers Care Recreational Therapy Technician Name Role Phone Bonnie Ahn MD Primary Care Provider [phone] Allergies Active Allergy Reactions Criticality Noted Date [...] in the morning. 30 each 2 5 03/05/20 25 Active buPROPion XL (WELLBUTRIN XL) 150 mg 24 hr tabletIndicati ons:Obesity, Class I, BMI 30-34.9 Take 1 tablet (150 mg total) by mouth 1 (one) time each day in the morning. 30 each 2 5 12/05/19 25 Discontin ued(Reord er) Active Problems Problem Noted Date Diagnosed Date Class 2 obesity with body ma ss index (BMI) of 35.0 to 35.9 in adult 02/01/2024 Abdominal pannus 08/24/2019 Diastasis recti 08/24/2019 Intertrigo 08/24/2019 Skin laxity 08/24/2019 Excess weight 03/29/2019 Intestinal malabsorption following gastrectomy 0 11/29/2017 Achalasia 08/19/2017 Encounters Date Type Department Care Team Description 12/04/2024 Telephone Bariatric Surgery [address] [phone] Radha West MD 10/23/2024 3:08 PM EDT Anesthesia Event [facility] OR [address] [place] [phone] Praveen Wren MD Couture, Alison, [employer] 10/23/2024 12:30 PM EDT - 10/23/2024 4:00 PM EDT Surgery [facility] OR [address] [place] [phone] Jenna Kwok MD PANNICULECTOMY W/ DINORA DE LIS AND PLICATION [77236 (CPT ) +1 more] 10/23/2024 10:28 AM EDT - 10/23/2024 8:30 PM EDT Hospital Encounter [facility] OR [address] [place] [phone] Jenna Kwok MD Discharge Disposition: Home or [...] PROCEDURE: ARTHROSCOPY PROCEDURE NEC KNEE SECTION PROCEDURE: NE DELIVERY ONLY OTHER SURGICAL HISTORY Left PROCEDURE: HISTORY OTHER; COMMENT: surgery for blood clot. Medical History Medical History Date Comments History of bariatric surgery 08/19/2017 DX: History of bariatric surgery; COMMENT: 02/23/2017 Laparoscopic sleeve gastrectomy, Dr. West Achalasia 08/19/2017 DX:Achalasia Morbid obesity with BMI of 4 5.0-49.9, adult ([facility] V24, [facility] V28) 08/19/2017 DX:Morbid obesity wit h BMI of 45.0-49.9, adult ([facility]) Dysphagia Disease of thyroid gland Hypothyroidism Hiatal hernia GERD (gastroesophageal reflux disease) Arthritis Joint pain l knee Clotting disorder ([facility] V24) DVT of lower extremity (deep venous thrombosis) ([facility] V24, [facility] V28) 2022 LEFT CALF Family History Medical History Relation Name Comments Diabetes Father Hypertension Mother Relation Name Status Comments Father Mother Alive Social History Tobacco Use Types Packs/Day Years Used Date Smoking Tobacco: Never Smokeless Tobacco: Never Alcohol Use Standard Drinks/Week Comments No 0 (1 standard drink = 0.6 oz pur e alcohol) Interpersonal Safety Answer Date Record ed Physical Abuse Unrecognized value 10/23/2024 Verbal Abuse Unrecognized value 10/23/2024 Comments No Sex and Gender Information [...] AM EST Office Visit Bariatric Surgery - [place] [address] [place] [phone] Radha West MD [facility] [place] [address] Health Maintenance Due Date Last Done Comments Breast Cancer Screening 1972 Colorectal Cancer Screening: Colonoscopy 1972 Hepatitis B Vaccines (1 of 3 - 19+ 3-dose series) 1991 Cervical Cancer Screening: P ap Smear 1993 Cholesterol Screening (Lipid Panel) 02/13/2022 HIV Screening 02/13/2022 Hepatitis C Screening 02/13/2022 Social Influencers of Health Screening 02/13/2022 Pneumococcal Vaccine: 50+ Years (1 of 1 - PCV) 2022 Zoster Vaccines (1 of 2) 2022 Depression Screening 03/07/2024 COVID-19 Vaccine (3 - 2024-2 6 season) 2024 05/08/2020, 2020 Influenza Vaccine (#1) 2024 DTaP,Tdap,and Td Vaccines (2 - Td or Tdap) 04/25/2034 04/25/2024 RSV Immunization Adult Patients (1 - 1-dose 75+ series) 2047 HIB Vaccines Aged Out No longer eligi [...] ENDOTRACHEAL(NO CHARGE) Routine 10/23/2024 3:26 PM EDT NE EXCISION EXCESSIVE SKIN AND SUBCUTANEOUS TISSUE ABDOMEN 10/23/2024 3:07 PM EDT Excessive and redundant skin and subcutaneous tissue Case Notes CC NE EXCISION EXCESSIVE SKIN SUBQ TISSUE ABD INFRAUMBILICAL PANNICULECTOMY 10/23/2024 3:07 PM EDT Excessive and redundant skin and subcutaneous tissue Case Notes CC POC PREGANCY, URINE NO CHARGE SCREENING MANUALLY RESULTED Routine 10/23/2024 10:47 AM EDT from Last 3 Months Results * TH AN ENDOTRACHEAL(NO CHARGE) (10/23/2024 3:26 PM EDT) Tali Nelson CRNA - 10/23/2024 3:26 PM EDT Tali Escobar CRNA 10/23/2024 3:27 PM General Information and Staff Patient location during procedure: OR Resident/LIP CUTTER AND SCORER: Tali Escobar CRNA Performed: resident/LIBERTY/CAA Performed by: [...] currently active code status orders. Care Teams Recreational Therapy Technician Relationship Specialty Start Date End Date Bonnie Ahn MD [address] [place] [address] , [address] [facility] D/B/A: [facility] [place], [place] PCP - General Internal Medicine 03/29/19
--- NOTE | 2024-12-18 08:22 | MHC.PC.OV ---
Vital Signs 12/18/24 08:24 Height 5 ft 4 in Weight 189 lb 2 oz BMI 32.5 BP 120/68 Blood Pressure Location Lt brachial Position Sitting Pulse 55 Pulse Source Pulse Oximeter Temp 97.1 F Temp Source Temporal Artery Scan Pulse Oximetry (%) 99 Oxygen Delivery Method Room Air Intake Visit Reasons: Thyroid follow up Intake Note: Patient is here to follow up on Thyroid. Lottery Sales Clerk Required: No Maintenance Carpenter: Present Accompanied by: Spouse Allergies lactose Allergy (Intermediate, Verified 12/18/24 08:53) diarrhea oxycodone Adverse Reaction (Mild, Verified 12/18/24 08:53) Vomiting, stomach pain Medication List - Last Reconciled 12/18/24 by Bonnie Ahn MD apixaban (Eliquis) 2.5 mg PO BID bupropion HCl XL 150 mg PO DAILY epinephrine (EpiPen) 0.3 mg IM Q4H PRN levothyroxine (Unithroid) 50 mcg PO DAILY 90 days multivitamin 1 tab PO DAILY omeprazole 40 mg PO DAILY tramadol 50 mg PO DAILY PRN 30 days Tobacco use date assessed: 12/18/24 Dental Screening Dental Screen Date: 04/25/24 HPI HPI Comments History of Present Illness Details The patient is a 54-year-old female presenting with follow-up on postoperative recovery from paniculectomy and management of hypothyroidism. The patient has a history of lactose intolerance and allergy to oxycodone, which are managed by avoidance of these substances. She has a history of deep vein thrombosis for which she is on Eliquis. The patient is currently on levothyroxine 50 mcg for hypothyroidism, which was adjusted due to previous thyroid function instability. The last thyroid function test was ordered for six weeks post-adjustment, and she plans to complete it next week. She also takes omeprazole for gastroesophageal reflux disease and tramadol for osteoarthritis-related knee pain as needed. The patient underwent a paniculectomy on October 23 and is currently in the recovery phase, having completed eight weeks post-surgery. The surgery was performed by Dr. Jenna Kwok, and the patient reports satisfaction with the outcome. [facility] Medical History (Updated 12/18/24 @ 09:05 by Bonnie Ahn MD) Quintana's esophagus without dysplasia Deep vein thrombosis (07/28/22) Obesity (BMI 35.0-39.9 without comorbidity) Class 1 obesity with body mass index (BMI) of 34.0 to 34.9 in adult Thrombocytopenia Pancytopenia Osteoarthritis of left knee Hypovitaminosis D Toenail deformity Left shoulder pain Constipation by delayed colonic transit Hypothyroidism Surgical History History of abdominoplasty S/P panniculectomy History of esophagogastroduodenoscopy (EGD) H/O colonoscopy H/O gastric sleeve Venous insufficiency of left leg History of surgery History of cholecystectomy History of arthroscopy of left knee History of section Family History Father Diabetes CVD (cardiovascular disease) Myocardial infarction Mother CVD (cardiovascular disease) Hypertension Maternal Grandmother No problems noted. Maternal Grandfather Prostate cancer Family/Other Mental health disorder Social History Household Members: Spouse and Children Housing: House Are you a primary resident care director to a significant other at home: No Do you presently have visiting nurse or other home services: No Alcohol intake: never Comment: S3 Patient Tobacco Use Status: Never used Tobacco e-Cigarette/Vaping Use: Never Used Second Hand Smoke Exposure: No service: No Current occupational status: employed Current occupational exposures/hazards: No Cognitive needs: No Hearing needs: No Vision needs: Yes (Glasses) Questionnaire Thrive Questionnaire Date Thrive assessed: 04/18/24 I am a: Patient What is your living situation today?: I have a steady place to live Within the past 12 months, did the food you bought not last and you didn't have the money to get more?: Never true Within the past 12 months, did you worry whether your food would run out before you got money to buy more?: Never true Do you have trouble paying for medicines?: No Do you have trouble getting transportation to medical appointments?: No Do you have trouble paying your heating and electricity bill?: No Do you have trouble taking care of your child, family member or friend?: No Do you have trouble with day-to-day activities such as bathing, preparing meals, shopping, managing finances, etc.?: No Are you currently unemployed and looking for a job?: No Are you interested in more education?: No Please select the resources that you would like help with: None Currently or been in a relationship where the following occur: No concerns reported THRIVE Score: 0 DUSTY-7 AMB Questionnaire DUSTY-7 Date DUSTY - 7 assessed: 04/25/24 Source: Developed by Drs. Emery Lindquist, Judy Marie, Henry Sethi and colleagues, with an educational michelle from [employer]. Review of Systems Const All systems reviewed & are unremarkable except as noted in HPI and below Card Denies chest pain at rest, Denies chest pain with activity, Denies edema, Denies irregular heart rhythm, Denies claudication, Denies dyspnea, Denies dyspnea on exertion, Denies orthopnea, Denies paroxysmal nocturnal dyspnea and Denies slow heart rate Resp Denies cough, Denies dyspnea and Denies dyspnea on exertion GI Denies abdominal pain, Denies change in bowel habits, Denies excessive flatus, Denies nausea and Denies vomiting Physical exam (Primary Care) Vital Signs: Last Vital Signs Temp 97.1 F 12/18/24 08:24 Pulse 55 12/18/24 08:24 BP 120/68 12/18/24 08:24 Pulse Ox 99 12/18/24 08:24 Oxygen Delivery Method Room Air 12/18/24 08:24 BMI result Body Mass Index 32.5 BMI Assessment/Plan discussion: High BMI High, discussed plan: lifestyle, weight reduction, dietary and physical activity Tobacco/Smoking Status: Tobacco use Status Tobacco use date assessed 12/18/24 12/18/24 08:31 Patient Tobacco Use Status Never used Tobacco 12/18/24 08:31 e-Cigarette/Vaping Use Never Used 12/18/24 08:31 Thrive Assessment: Date of Thrive Assessment Date Thrive assessed 04/18/24 12/18/24 08:31 Currently or been in a relationship where the following occur: No concerns reported Resp Effort & Inspection: normal respiratory effort Auscultation: clear to auscultation bilaterally Cardio Jugular venous distension: no JVD Rate: regular rate Rhythm: regular rhythm Heart sounds: S1 normal heart sound present and S2 normal heart sound present Extrem General: Yes full ROM Coding Level of Care Code Est Pt Level 4 (43334) Complex EM visit Add On G2211 Diagnoses Acquired hypothyroidism E03.9 Hypothyroidism type: acquired Chronic deep vein thrombosis (DVT) of distal vein of left lower extremity I82.5Z2 DVT location: lower extremity Affected thrombotic vein of extremity: unspecified lower extremity distal vein Chronicity: chronic Laterality: left Osteoarthritis of left knee M17.12 Chronic GERD K21.9 Time Spent (min) 21 Assessment & Plan Assessment & Plan (1) Hypothyroidism: Code(s): E03.9 - Hypothyroidism, unspecified Category: Medical Qualifiers: Hypothyroidism type: acquired Qualified Code(s): E03.9 - Hypothyroidism, unspecified (2) Deep vein thrombosis: Onset Date: 07/28/22 Comment: 07/28/2022 - Left leg thrombectomy Code(s): I82.409 - Acute embolism and thrombosis of unspecified deep veins of unspecified lower extremity Category: Medical Qualifiers: DVT location: lower extremity Affected thrombotic vein of extremity: unspecified lower extremity distal vein Chronicity: chronic Laterality: left Qualified Code(s): I82.5Z2 - Chronic embolism and thrombosis of unspecified deep veins of left distal lower extremity (3) Osteoarthritis of left knee: Code(s): M17.12 - Unilateral primary osteoarthritis, left knee Category: Medical (4) Chronic GERD: Code(s): K21.9 - Gastro-esophageal reflux disease without esophagitis Category: Medical Plan Plan Patient was informed and verbally consented to the use of an ambient scribe for clinic note documentation during this visit. 1. Hypothyroidism The patient's levothyroxine dosage was adjusted to 50 mcg due to previous thyroid function instability. A follow-up thyroid function test is scheduled for next week, six weeks post-adjustment, to ensure stability. 2. Postoperative Recovery From Paniculectomy The patient is in the recovery phase following a paniculectomy performed on October [address] Jenna Kwok. She reports satisfaction with the surgical outcome and is currently eight weeks post-surgery. 3. Left knee osteoarthritis Continue tramadol as needed. 4. DVT Continue Eliquis indefinitely. Orders: Orders Lipid Panel 4 Months Bonnie Ahn MD E78.5 - Hyperlipidemia, unspecified Comprehensive [place]. Panel Fast 4 Months Bonnie Ahn MD E66.9 - Obesity, unspecified, Z68.34 - Body mass index [BMI] 34.0-34.9, adult Thyroid Stimulating Hormone 4 Months Bonnie Ahn MD E03.9 - Hypothyroidism, unspecified Vitamin D 25-OH Total 4 Months Bonnie Ahn MD E55.9 - Vitamin D deficiency, unspecified Medications: Changed From omeprazole 20 mg PO DAILY 90 caps 2RF K21.9 - Gastro-esophageal reflux disease without esophagitis To omeprazole 40 mg PO DAILY K21.9 - Gastro-esophageal reflux disease without esophagitis IQRA Stone- Refilled tramadol 50 mg PO DAILY PRN 30 tabs 0RF pain 30 days Bonnie Ahn MD
[2024-12-18 08:24] VITALS: BP 120/68; PULSE 55; TEMP 36.2; O2SAT 99; BMI 32.5
== END 2024-12-18 09:01 | disposition home or self-care (01) ==
LOC: HO.HMCH 08:09
PROVIDERS: PCP Internal Medicine; Visit Provider Internal Medicine
DX: E03.9 Hypothyroidism, unspecified (principal); I82.5Z2 Chronic embolism and thrombosis of unspecified deep veins of left distal lower extremity; M17.12 Unilateral primary osteoarthritis, left knee; K21.9 Gastro-esophageal reflux disease without esophagitis

== ENCOUNTER 2024-12-28 08:27 | Outpatient (REF) | payer BC, SELFPAY ==
--- OUTSIDE RECORDS SUMMARY | 2024-12-28 08:56 | XMS_ITS | Data Portability ---
Author Organization [place] [facility], Allergy Address [address] [place] [address] Care Team Providers Care School Bus Monitor Name Role Phone TOD JENKINS Primary Care [...] Dose Aware of Vial Test Aware: Notes: [email or web address] Not available 10/05/2024 11:16:04 10/16/2024 10/16/2024 Visit [...] Details Last Modified Time Details Appointments [facility] hed- Allergy f-up 6mon 2025 10:30A M KAMILLE FABIAN Not available Not available Not available Lab None recorded . Referral None recorded . Procedures None recorded . Surgeries None recorded . Imaging None recorded . Medication Orders EpiPen 2-Charli 0.3 mg/0.3 mL injectio n, auto-inj marii 2024 025 [facility] [address], [address] [place] [address], [address], 10/22/2024 10:45:37 Patient TargetsNo targets recorded. Patient InstructionsNo instructions recorded. Reason for Referral None Reported. Problems Name Problem SNOMED Code Status Onset Date Resolution Date Notes Provider Name and Address Organization Details Recorded Time Achalasia of esophagus 74916715 Active 2022 Achalasia NOS; Note: Date Diagnosed : 06/23/2022 2:49 PM (K22.0) Not Available [facility] 4 03:10:05 Respirato ry finding 535562122 Active 2022 Feeling of foreign body in throat; Note: Date Diagnosed : 06/23/2022 2:49 PM (R09.89) Not Available [facility] 4 03:10:05 Cardiovas cular finding 528041951 Active 2022 Feeling of foreign body in throat; Note: Date Diagnosed : 06/23/2022 2:49 PM (R09.89) Not Available [facility] 4 03:10:05 Posterior rhinorrhe a 73452322 Active 2022 Postnasal drip; Note: Date Diagnosed : 06/23/2022 2:49 PM (R09.82) Not Available [facility] 4 03:10:04 Deviated nasal septum 236421996 Active 2022 Deviated nasal septum; Note: Date Diagnosed : 06/23/2022 2:49 PM (J34.2) Not Available [facility] 4 03:10:04 Allergic rhinitis 89160866 Active 2023 Allergic rhinitis: Due to other [...] Note: Date Diagnosed : 10/16/19 Not Available [facility] 4 01:25:32 Snoring 14995568 Active 2023 Snoring; Note: Date Diagnosed : 04/04/2023 8:51 AM (R06.83) Not Available [facility] 4 03:10:03 Obesity 839357032 Active 2023 Other obesity; Note: Date Diagnosed : 04/04/2023 8:51 AM (E66.8) Not Available [facility] 4 03:10:04 Tinnitus of vascular origin 682715848 Active 2023 Pulsatile tinnitus, right ear; Note: Date Diagnosed : 04/04/2023 8:49 AM (H93.A1) Not Available [facility] 4 03:10:04 Sensorine ural hearing loss 68987109 Active 2023 Sensorine ural hearing loss, unilatera l, right ear, with unrestric jaswant hearing on the contralat eral side; Note: Date Diagnosed : 04/04/2023 9:26 AM (H90.41) Not Available [facility] 4 03:10:05 Perennial allergic rhinitis 224765789 Active 2023 JUAQUIN YAÑEZ RN [address] [place] [address], [place], [address] , [facility] - [facility] [place] 5 10:18:14 Abnormal auditory perceptio n 24249759 Active 2023 JOSE VELÁZQUEZ MD [address] [place] [address], [place], [address] , [place] [facility] [place] 4 21:49:47 Subjectiv e pulsatile tinnitus of right ear [id number] 25662 Active 2023 JOSE VELÁZQUEZ MD [address] [place], [place] [address]on [place],[address], [place], [address] , [place] - [facility] [place] 4 21:53:02 Abnormal auditory perceptio n 80920432 Active 2023 JOSE VELÁZQUEZ MD [facility] [place],[address], [place], [address] , [facility] - [facility] [place] 4 09:14:23 Non-aller gic rhinitis 81136968271 1 Active 2023 Oh hernández [place] - [facility] [place] 4 12:14:47 Seasonal allergic rhinitis 016991150 Active 2023 Oh hernández [place] - [facility] [place] 4 12:14:47 Chronic sinusitis 62442066 Active 2023 Oh hernández [place] - [facility] [place] 4 12:16:47 Polyp of nasal cavity 053030246 Active 2023 Oh hernández [place] - [facility] [place] 4 12:17:03 Polypoid sinus degenerat ion 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 Procedures Surgical History Date Name Laterality Status Provider Name and Address Organization Details Recorded Time 11/28/19 25 Allergy Immunotherapy Injections completed JUAQUIN YAÑEZ RN 100 [facility],[address], [address], [place] [facility] [place] 11/27/2024 10:19:06 11/03/19 25 Allergy Immunotherapy Injections completed JUAQUIN YAÑEZ RN 100 [facility],[address], [address], [place] [facility] [place] 11/02/2024 10:24:23 10/25/19 25 Allergy Immunotherapy Injections completed JUAQUIN YAÑEZ RN 100 [facility],[address], [address], [place] [facility] [place] 10/24/2024 14:49:16 10/25/19 25 Allergy Immunotherapy Injections completed JUAQUIN YAÑEZ RN [address], [place], [address], [place] [facility] [place] 10/24/2024 13:27:54 10/17/19 25 Allergy Immunotherapy Injections completed KEN CARDENAS, RMA [address], [place], [address], [place] [facility] [place] 10/16/2024 10:46:47 10/06/19 25 Allergy Immunotherapy Injections completed KIAH LUCIO RMA [address], [place], [address], [place] [facility] [place] 10/05/2024 11:15:58 09/05/19 25 Allergy Immunotherapy Injections completed SCOTTY RICE [address], [place], [address], [place] [facility] [place] 09/04/2024 14:06:31 08/23/19 25 Allergy Immunotherapy Injections completed JUAQUIN YAÑEZ RN [address], [place], [address], [place] [facility] [place] 08/22/2024 09:50:37 07/27/19 25 Allergy Immunotherapy Injections completed KEN CARDENAS, RMA [address], [place], [address], [place] [facility] [place] 07/26/2024 10:28:09 07/13/19 25 Allergy Immunotherapy Injections completed JUAQUIN YAÑEZ RN [address], [place], [address], [place] [facility] [place] 07/12/2024 09:50:19 06/27/19 25 Allergy Immunotherapy Injections completed JUAQUIN YAÑEZ RN [address], [place], [address], [place] [facility] [place] 06/26/2024 09:35:05 06/14/19 25 Allergy Immunotherapy Injections completed JUAQUIN YAÑEZ RN [address], [place], [address], [place] [facility] [place] 06/13/2024 10:59:19 05/30/19 25 Allergy Immunotherapy Injections completed JUAQUIN YAÑEZ RN [address] [place] [address], [address], [place] [facility] [place] 05/29/2024 10:31:20 05/23/19 25 Allergy Immunotherapy Injections completed Isa Zaragoza [place] - [facility] [place] 05/22/2024 09:24:53 05/16/19 25 Allergy Immunotherapy Injections completed KIAH LUCIO RMA [address], [place], [address], [place] [facility] [place] 05/15/2024 12:04:32 05/09/19 25 Allergy Immunotherapy Injections completed KEN CARDENAS RMA [address], [place], [address], [place] [facility] [place] 05/08/2024 09:54:06 05/01/19 25 Allergy Immunotherapy Injections completed KEN CARDENAS RMA [address] [place] [address], [address], [place] [facility] [place] 05/01/2024 10:21:08 04/23/19 25 Allergy Immunotherapy Injections completed KIAH LUCIO RMA [address], [place], [address], [facility] - [facility] [place] 04/23/2024 09:59:03 04/03/19 25 Allergy Immunotherapy Injections completed KEN CARDENAS RMA [address] [place] [address], [address], [place] [facility] [place] 04/03/2024 10:20:26 03/28/19 25 Allergy Immunotherapy Injections completed JUAQUIN YAÑEZ RN [address], [place], [address], [place] [facility] [place] 03/28/2024 10:48:14 03/20/19 25 Allergy Immunotherapy Injections completed KEN CARDENAS, RMA [address], [place], [address], [place] [facility] [place] 03/20/2024 09:23:24 03/13/19 25 Allergy Immunotherapy Injections completed KEN CARDENAS, RMA [address], [place], [address], [place] [facility] [place] 03/13/2024 11:58:51 03/08/19 25 Allergy Immunotherapy Injections completed KEN CARDENAS, RMA [address], [place], [address], [place] [facility] [place] 03/08/2024 12:13:50 03/01/20 24 Allergy Immunotherapy Injections completed JUAQUIN YAÑEZ RN [address], [place], [address], [place] [facility] [place] 03/01/2024 09:38:10 02/23/20 24 Allergy Immunotherapy Injections completed JUAQUIN YAÑEZ RN [address] [place] [address], [address], [place] [facility] [place] 02/23/2024 10:01:24 02/14/20 24 Allergy Immunotherapy Injections completed KEN CARDENAS, A [address] [place] [address], [address], [place] [facility] [place] 02/14/2024 11:05:56 02/07/20 24 Allergy Immunotherapy Injections completed JUAQUIN YAÑEZ RN [address] [place] [address], [address], [place] [facility] [place] [facility] 02/07/2024 10:14:23 02/03/20 24 Allergy Immunotherapy Injections completed SCOTTY RICE [address] [place] [address], [address], [place] [facility] [place] [facility] 02/03/2024 09:34:55 01/24/20 24 Allergy Immunotherapy Injections completed JUAQUIN YAÑEZ RN [address] [address] [place] [address], [address], [place] [facility] [place] 01/24/2024 10:50:50 01/19/20 24 Allergy Immunotherapy Injections completed SCOTTY RICE [address], [place], [address], [place] [facility] [place] 01/19/2024 13:18:23 01/10/20 24 Allergy Immunotherapy Injections completed SCOTTY RICE [address], [place], [address], [place] [facility] [place] 01/10/2024 09:42:22 01/03/20 24 Allergy Immunotherapy Injections completed JUAQUIN YAÑEZ RN [address], [place], [address], [place] [facility] [place] [facility] 01/03/2024 11:08:00 12/29/19 24 Allergy Immunotherapy Injections completed SCOTTY RICE [address], [place], [address], [place] [facility] [place] [facility] 12/29/2023 09:38:54 12/21/19 24 Allergy Immunotherapy Injections completed SCOTTY GUTHRIE [address], [place], [address], [place] [facility] [place] [facility] 12/21/2023 11:30:52 12/14/19 24 Allergy Immunotherapy Injections completed JUAQUIN YAÑEZ RN [address] [place] [address], [address], [place] [facility] [place] [facility] 12/14/2023 11:25:12 11/23/19 24 Allergy Immunotherapy Injections completed SCOTTY GUTHRIE [address], [place], [address], [place] [facility] [place] 11/23/2023 10:31:13 11/17/19 24 Allergy Immunotherapy Injections completed SCOTTY GUTHRIE [address] [place] [address], [address], [place] [facility] [place] [facility] 11/17/2023 09:42:16 11/09/19 24 Allergy Immunotherapy Injections completed JUAQUIN YAÑEZ RN [address] [place] [address], [address], [place] [facility] [place] [facility] 11/09/2023 11:29:05 11/01/19 24 Allergy Immunotherapy Injections completed JUAQUIN YAÑEZ RN [address], [place], [address], [place] [facility] [place] [facility] 11/01/2023 10:43:38 10/27/19 24 Allergy Immunotherapy Injections completed KEN CARDENAS, RMA [address], [place], [address], [place] [facility] [place] 10/27/2023 11:59:30 10/19/19 24 Allergy Immunotherapy Injections completed JUAQUIN YAÑEZ RN [address] [facility], [place], [address], [place] [facility] [place] 10/19/2023 10:27:27 10/19/19 24 Air & Speech Audio with Tymps - 68230, 19420 & 91084 completed DARRIUS OSMAN MA, CCC-A 100 [facility] [place],[address] [facility], [place], [address], [place] [facility] [place] 10/19/2023 09:45:15 10/11/19 24 Allergy Immunotherapy Injections completed SCOTTY RICE 100 [facility] [place],[address], [address], [place] [facility] [place] 10/11/2023 09:44:13 10/04/19 24 Allergy Immunotherapy Injections completed KEN CARDENAS, Isabela [address] [facility], [place], [address], [place] [facility] [place] 10/04/2023 12:12:37 09/27/19 24 Allergy Immunotherapy Injections completed JUAQUIN YAÑEZ RN 100 [facility] [place],[address] [address] [place] [address], [address], [place] [facility] [place] 09/27/2023 10:51:29 09/20/19 24 Allergy Immunotherapy Injections completed JUAQUIN YAÑEZ RN [address] [place] [address], [address], [place] [facility] [place] [facility] 09/20/2023 10:20:29 09/13/19 24 Allergy Immunotherapy Injections completed SCOTTY RICE [address] [place] [address], [address], [place] [facility] [place] [facility] 09/13/2023 12:56:00 09/05/19 24 Allergy Immunotherapy Injections completed JUAQUIN YAÑEZ RN 100 [facility] [place],[address] [place] [address], [address], [place] - [facility] [place] [facility] 09/05/2023 09:56:55 08/31/19 24 Allergy Immunotherapy Injections completed KIAH LUCIO, RMA 100 [facility] [place],[address] [place] [address], [address], [facility] - [facility] [place] 08/31/2023 09:14:03 08/23/19 24 Allergy Immunotherapy Injections completed KEN RASTALEANAC, RMA 100 [facility] [place],[address], [address], [facility] 08/23/2023 09:35:11 08/17/19 24 Allergy Immunotherapy Injections completed KEN KORZEC, RMA 100 [facility] [place],[address], [address], [facility] - [facility] 08/17/2023 10:13:24 08/10/19 24 Allergy Immunotherapy Injections completed KEN RASTAZEC, RMA 100 [facility],[address], [address], [facility] 08/10/2023 11:14:06 08/03/19 24 Allergy Immunotherapy Injections completed JUAQUIN YAÑEZ RN 100 [facility],[address], [address], [facility] - [facility] 08/03/2023 10:25:33 07/27/19 24 Allergy Immunotherapy Injections completed KEN RASTAZEC, RMA 100 [facility] [place],[address], [address], [facility] - [facility] 07/27/2023 10:39:49 07/21/19 24 Allergy Immunotherapy Injections completed KEN RASTAZEC, RMA 100 [facility],[address], [place], [address], [facility] 07/21/2023 10:29:54 Imaging Results None recorded. Procedure Notes None recorded. Medical Equipment None Reported. Allergies Allergen ID Allergen Name Allergen Category Reaction Reaction Severity Criticality Documentation Date Start Date Code Code System Note Provider Name and Address Organization Details Recorded Time 105330 oxycodone medicatio n vomiting moderate Not available 07/19/2023 6922 RxNorm JOSE STONE MD 100 [facility],[address], [place], [address], [facility] 5 10:59:02 149987 lactose Not available diarrhea severe Not available 07/19/2023 6211 RxNorm JOSE STONE MD 100 [facility] 100, [facility] [place], [address], [facility] 5 10:59:02 Medications Name Sig Start Date [...] mg tablet 09/08 completed Medicati on ID: [id number] [place] city Name: meloxica sergio Send Method: E-Prescr ibed [...] Multi-Vit schaefer tablet active Medicati on ID: [id number] B rand Name: Daily Multi-Vi tamin Se [...] (7) tablet 09/08 completed Medicati on ID: [id number] B rand Name: Jenise Wright 03/26 () Sen d Method: E-Prescr ibed Sub s Allowed: subs OK Medic ationGen ericName : Jenise Wright 03/26 () Not Available Not Available Not Available Vitals Date Recorded Body height Body mass index (BMI) Body weight Systolic And Diastolic Provider Name and Address Organization Details Last Updated DateTime 10/22/2024 162.56 cm 32.6 kg/m2 52243.55 g 124/68 mm[Hg] Nga Baron [place] - [facility] 10/22/2024 10:19:05 Social History Question Answer Notes LastModified by Organizat ion Details LastModified Time Tobacco Smoking Status Never Smoker JOSE DIXON MD [address] [place] [address], [address] [place] [facility] 10/22/2024 10:59:27 What Type Of Rehabilitation Program Manager Do You Use? None Information not available [...] Disorder N Anesthesia Complications N Heart Attack ([place]) N Other Skin Condition N Diabetes N [...] Note 492 JUAQUIN YAÑEZ RN Allergy 100 [facility],[address] [place] [address] 07/21/2023 10:01:06 07/22/2023 13:03:52 Perennial allergic rhinitis 103299464 J30.89 1117 KEN CARDENAS [facility] Allergy 100 [facility] [place] [address] [facility] [place] [address] 07/27/2023 10:17:14 07/27/2023 11:20:05 Perennial allergic rhinitis 190045184 J30.89 1806 JUAQUIN YAÑEZ RN Allergy 100 [facility],[place] [address] [place] [address] 08/03/2023 10:24:55 08/03/2023 13:01:24 Perennial allergic rhinitis 680258376 J30.89 2837 [facility], [facility] Allergy 100 [facility],[place] [place] [address] 08/10/2023 10:49:51 08/10/2023 11:19:10 Perennial allergic rhinitis 444433502 J30.89 3726 KIAH LUCIO A Allergy [address] [place] [address],[place] [place] [address] 08/17/2023 09:07:38 08/17/2023 11:14:32 Perennial allergic rhinitis 680534224 J30.89 4459 [facility], A Allergy [address] [place] [address],[place] [place] [address] 08/23/2023 09:03:10 08/23/2023 13:26:57 Perennial allergic rhinitis 131752689 J30.89 5606 [facility], A Allergy [address] [place] [address],[place] [place] [address] 08/31/2023 08:49:58 08/31/2023 11:02:35 Perennial allergic rhinitis 813789800 J30.89 6153 JUAQUIN YAÑEZ RN Allergy [address] [place] [address],[place] [place] [address] 09/05/2023 08:46:12 09/05/2023 10:03:05 Perennial allergic rhinitis 749130559 J30.89 7075 KIAH LUCIO A Allergy [address] [place] [address],[place] [place] [address] 09/13/2023 08:41:30 09/13/2023 14:37:18 Perennial allergic rhinitis 531536173 J30.89 8018 KIAH LUCIO A Allergy 100 [facility],[address] [place] [address] 09/20/2023 10:16:20 09/21/2023 13:05:24 Perennial allergic rhinitis 477748391 J30.89 9049 JUAQUIN YAÑEZ RN Allergy [address] [place] [address], [place] [address] 09/27/2023 09:14:35 09/27/2023 10:52:56 Perennial allergic rhinitis 276868035 J30.89 [id number] JUAQUIN YAÑEZ RN Allergy [address] [place] [address], [place] [address] 10/04/2023 12:11:42 10/04/2023 12:14:07 Perennial allergic rhinitis 497106708 J30.89 [id number] KIAH LUCIO Isabela Allergy [address] [place] [address], [place] [address] 10/11/2023 09:43:29 10/11/2023 11:09:54 Perennial allergic rhinitis 061205699 J30.89 [id number] JOSE VELÁZQUEZ MD [facility] [address] [address] 10/19/2023 09:06:55 10/19/2023 10:05:09 Allergic rhinitis 98648236 J30.9 Doing well with immunother apy. EpiPen up-to-date . Abnormal a uditory perception 11365701 H93.291 Audio bilateral SNHL--stab le Subjective pulsatile tinnitus of right ear [id number] 481695 H93.A1 Previous MRA was negative. Deviated nasal septum 12 3035910 J34.2 mild Sensorineu ral hearing loss 44797841 H90.41 10-19-2023 udiologica l evaluation results: Right ear: Normal with a mild SNHL at 2000Hz with excellent word recognitio n. Left ear: Normal hearing with excellent word recognitio n. Tympanomet ry: Right Ear:Type A Left Ear:Type A 10096 JUAQUIN YAÑEZ RN Allergy [address] [place] [address],[facility] [address] [place] [address] 10/19/2023 10:26:27 10/19/2023 10:27:52 Perennial allergic rhinitis 825792907 J30.89 [id number] JUAQUIN YAÑEZ RN Allergy [address] [place] [address] [place] [address] 10/27/2023 09:20:07 10/27/2023 13:21:33 Perennial allergic rhinitis 364125411 J30.89 [id number] JUAQUIN YAÑEZ RN Allergy [address] [place] [address] [address] [place] [address] 11/01/2023 10:42:48 11/01/2023 10:44:36 Perennial allergic rhinitis 837304855 J30.89 [id number] JUAQUIN YAÑEZ RN Allergy [address] [place] [address] [address] [place] [address] 11/09/2023 11:26:12 11/09/2023 11:29:30 Perennial allergic rhinitis 318293141 J30.89 [id number] KEN AGRAWAL, [facility] Allergy [address] [place] [address] [address] [place] [address] 11/17/2023 09:40:52 11/17/2023 11:43:31 Perennial allergic rhinitis 645275011 J30.89 76102 JUAQUIN YAÑEZ RN Allergy [address] [place] [address] [address] [place] [address] 11/23/2023 10:27:55 11/23/2023 10:32:23 Perennial allergic rhinitis 726861627 J30.89 21230 JUAQUIN YAÑEZ RN Allergy [address] [place] [address] [address] [place] [address] 12/14/2023 11:23:54 12/14/2023 11:25:34 Perennial allergic rhinitis 097162997 J30.89 [id number] JUAQUIN YAÑEZ RN Allergy [address] [place] [address] [address] [place] [address] 12/21/2023 11:30:12 12/21/2023 11:31:30 Perennial allergic rhinitis 254308329 J30.89 00343 KIAH LUCIO, [facility] Allergy [address] [place] [address] [address] [place] [address] 12/29/2023 09:38:10 12/29/2023 09:40:16 Perennial allergic rhinitis 071810491 J30.89 [id number] JUAQUIN YAÑEZ RN Allergy [address] [place] [address] [address] [place] [address] 01/03/2024 11:06:53 01/03/2024 11:08:17 Perennial allergic rhinitis [id number] J30.89 [id number] KIAH KHADIJAH, [facility] Allergy [address] [place] [address],[place] [address] [place] [address] 01/10/2024 09:41:40 01/10/2024 09:42:52 Perennial allergic rhinitis [id number] J30.89 [id number] KIAH LUCIO, [facility] Allergy [address] [place] [address], [address] [place] [address] 01/19/2024 13:16:02 01/19/2024 13:20:09 Perennial allergic rhinitis [id number] J30.89 [id number] JUAQUIN YAÑEZ RN Allergy [address] [place] [address] [address] [place] [address] 01/24/2024 10:49:50 01/24/2024 10:52:32 Perennial allergic rhinitis [id number] J30.89 [id number] JUAQUIN YAÑEZ RN Allergy [address] [place] [address] [address] [place] [address] 02/03/2024 09:25:49 02/03/2024 09:35:31 Perennial allergic rhinitis [id number] J30.89 [id number] JUAQUIN YAÑEZ RN Allergy [address] [place] [address] [address] [place] [address] 02/07/2024 10:13:39 02/07/2024 10:14:50 Perennial allergic rhinitis [id number] J30.89 [id number] KIAH LUCIO, [facility] Allergy [address] [place] [address],[place] [place] [address] 02/14/2024 11:05:15 02/14/2024 11:06:25 Perennial allergic rhinitis [id number] J30.89 [id number] JUAQUIN YAÑEZ RN Allergy [address] [place] [address] [address] [place] [address] 02/23/2024 10:00:14 02/23/2024 10:01:52 Perennial allergic rhinitis [id number] J30.89 [id number] JUAQUIN YAÑEZ RN Allergy [address] [place] [address],[place] [place] [address] 03/01/2024 09:37:35 03/01/2024 09:38:44 Perennial allergic rhinitis [id number] J30.89 [id number] KIAH LUCIO, [facility] Allergy [address] [place] [address],[place] [place] [address] 03/08/2024 12:13:01 03/08/2024 12:14:59 Perennial allergic rhinitis [id number] J30.89 [id number] KIAH LUCIO, [facility] Allergy [address] [place] [address], [address] [place] [address] 03/13/2024 11:57:35 03/13/2024 11:59:25 Perennial allergic rhinitis [id number] J30.89 [id number] KEN RASTACAPE [facility], [facility] Allergy [address] [place] [address], [address] [place] [address] 03/20/2024 09:19:50 03/20/2024 09:23:46 Perennial allergic rhinitis [id number] J30.89 [id number] JUAQUIN YAÑEZ RN Allergy [address] [place] [address], [address] [place] [address] 03/28/2024 10:20:37 03/28/2024 10:48:37 Perennial allergic rhinitis [id number] J30.89 [id number] JUAQUIN YAÑEZ RN Allergy [address] [place] [address], [address] [place] [address] 04/03/2024 10:19:02 04/03/2024 10:20:47 Perennial allergic rhinitis [id number] J30.89 [id number] JOSE VELÁZQUEZ MD [facility] [place] [address] [facility] [place] [address] 04/23/2024 09:16:11 04/23/2024 09:38:20 Allergic rhinitis [id number] J30.89 Doing well with immunother apy. New Epipen prescribed [id number] JUAQUIN YAÑEZ RN Allergy [address] [place] [address],[place] [place] [address] 04/23/2024 09:58:15 04/23/2024 09:59:52 Perennial allergic rhinitis [id number] J30.89 [id number] JUAQUIN YAÑEZ RN Allergy [address] [place] [address],[place] [place] [address] 05/01/2024 10:16:09 05/01/2024 10:21:59 Perennial allergic rhinitis [id number] J30.89 [id number] JUAQUIN YAÑEZ RN Allergy [address] [place] [address], [address] [place] [address] 05/08/2024 09:53:32 05/08/2024 09:54:40 Perennial allergic rhinitis [id number] J30.89 [id number] KIAH LUCIO [facility] Allergy [address] [place] [address], [address] [place] [address] 05/15/2024 12:02:41 05/15/2024 12:06:39 Perennial allergic rhinitis [id number] J30.89 [id number] KIAH LUCIO [facility] Allergy [address] [place] [address] [address] [place] [address] 05/22/2024 09:23:27 05/22/2024 09:30:49 Perennial allergic rhinitis [id number] J30.89 [id number] JUAQUIN YAÑEZ RN Allergy [address] [place] [address], [address] [place] [address] 05/29/2024 10:30:47 05/29/2024 10:31:45 Perennial allergic rhinitis [id number] J30.89 [id number] JUAQUIN YAÑEZ RN Allergy [address] [place] [address], [address] [place] [address] 06/13/2024 10:52:10 06/13/2024 10:59:44 Perennial allergic rhinitis [id number] J30.89 [id number] KIHA LUCIO [facility] Allergy [address] [place] [address],[address] [place] [address] 06/26/2024 09:33:48 06/26/2024 09:35:30 Perennial allergic rhinitis [id number] J30.89 [id number] JUAQUIN YAÑEZ RN Allergy [address] [place] [address],[place] [place] [address] 07/12/2024 09:49:37 07/12/2024 09:50:46 Perennial allergic rhinitis [id number] J30.89 [id number] [facility] Allergy 100 [facility],[address] [place] [address] 07/26/2024 10:25:42 07/26/2024 10:29:31 Perennial allergic rhinitis [id number] J30.89 [id number] JUAQUIN YAÑEZ RN Allergy [address] [place] [address],[facility] [address] [place] [address] 08/22/2024 09:50:07 08/22/2024 09:51:04 Perennial allergic rhinitis [id number] J30.89 [id number] [facility], [facility] Allergy [address] [place] [address], [address] [place] [address] 09/04/2024 14:05:56 09/04/2024 16:49:17 Perennial allergic rhinitis [id number] J30.89 [id number] KIAH LUCIO [facility] Allergy [address] [place] [address], [address] [place] [address] 10/05/2024 11:15:30 10/05/2024 11:16:22 Perennial allergic rhinitis [id number] J30.89 [id number] KIAH LUCIO [facility] Allergy [address] [place] [address], [address] [place] [address] 10/16/2024 10:46:07 10/16/2024 10:47:08 Perennial allergic rhinitis [id number] J30.89 [id number] JOSE VELÁZQUEZ MD [facility] [place] [address] [place] [address] 10/22/2024 09:42:24 10/22/2024 10:43:52 Allergic rhinitis [id number] J30.89 Doing well with immunother apy. New Epipen prescribed [id number] JUAQUIN YAÑEZ RN Allergy [address] [place] [address],[address] [place] [address] 10/24/2024 13:27:09 10/24/2024 13:28:55 Perennial allergic rhinitis [id number] J30.89 [id number] JUAQUIN YAÑEZ RN Allergy [address] [place] [address],[address] [place] [address] 10/24/2024 14:48:27 10/24/2024 14:49:44 Perennial allergic rhinitis [id number] J30.89 [id number] JUAQUIN YAÑEZ RN Allergy [address] [place] [address],[facility] 100 [place] [address] 11/02/2024 10:03:59 11/02/2024 10:24:55 Perennial allergic rhinitis [id number] J30.89 [id number] SCOTTY RICE Allergy 100 [facility] 100 [place] [address] 11/27/2024 10:10:00 11/27/2024 10:20:05 Perennial allergic rhinitis [id number] J30.89 Health Concerns Section Related Observation LastModified by Organization Detai ls LastModified Time None Recorded Concern Status LastModified by Organization Details LastModified Time None Recorded Advance Directives Directive None Recorded Payers Insurance Date Sequence Insurance Name Policy Number Policy Roche Covered Member ID Roche Member ID Guarantor Name 11/27/2024 1 [facility] [place] [id number] Shelia Javierisabela [id number] Shelia Fitzgerald Notes Date Note Type [...] an updated EpiPen script. JOSE DIXON MD [address] [place] [address], [id number], [facility] - [facility] 10/22/2024 11:52:29 OBGyn Episode No OBEpisode recorded.
--- OUTSIDE RECORDS SUMMARY | 2024-12-28 08:56 | XMS_ITS | Clinical Summary ---
Author Organization [address] [facility] Address [address] [place] [address] Phone Care Team Providers Care Family Resource Management Specialist Name Role Phone Bonnie Ahn MD Primary Care Provider [phone] Allergies Active Allergy Reactions Criticality Noted Date [...] Care Team Description 12/04/2024 Telephone Bariatric Surgery [address] [phone] Radha West MD 10/23/2024 3:08 PM EDT Anesthesia Event [facility] [place] [address] [place] [phone] Praveen Wren MD Couture, Alison, CALL OUT OPERATOR 10/23/2024 12:30 PM EDT - 10/23/2024 4:[address] [facility] [place] [address] [place] [phone] Jenna Kwok MD PANNICULECTOMY W/ DINORA DE LIS AND PLICATION [86079 (CPT ) +1 more] 10/23/2024 10:28 AM EDT - 10/23/2024 8:30 PM EDT Hospital Encounter [facility] [place] [address] [place] [phone] Jenna Kwok MD Discharge Disposition: Home or [...] PROCEDURE: ARTHROSCOPY PROCEDURE NEC KNEE SECTION PROCEDURE: OK DELIVERY ONLY OTHER SURGICAL HISTORY Left PROCEDURE: HISTORY OTHER; COMMENT: surgery for blood clot. Medical History Medical History Date Comments History of bariatric surgery 08/19/2017 DX: History of bariatric surgery; COMMENT: 02/23/2017 Laparoscopic sleeve gastrectomy, Dr. West Achalasia 08/19/2017 DX:Achalasia Morbid obesity with BMI of 4 5.0-49.9, adult ([facility] V24, [facility] V28) 08/19/2017 DX:Morbid obesity wit h BMI of 45.0-49.9, adult ([facility]) Dysphagia Disease of thyroid gland Hypothyroidism Hiatal hernia GERD (gastroesophageal reflux disease) Arthritis Joint pain l knee Clotting disorder ([facility] V24) DVT of lower extremity (deep venous thrombosis) ([facility] V24, [facility] V28) 2022 LEFT CALF Family History [...] AM EST Office Visit Bariatric Surgery - [place] [address] [place] [phone] Radha West MD [facility] [place] [address] Health Maintenance Due Date Last [...] ENDOTRACHEAL(NO CHARGE) Routine 10/23/2024 3:26 PM EDT OK EXCISION EXCESSIVE SKIN AND SUBCUTANEOUS TISSUE ABDOMEN 10/23/2024 3:07 PM EDT Excessive and redundant skin and subcutaneous tissue Case Notes CC OK EXCISION EXCESSIVE SKIN SUBQ TISSUE ABD INFRAUMBILICAL [...] and Staff Patient location during procedure: OR Resident/CALL OUT OPERATOR: Tali Escobar CRNA Performed: resident/LIBERTY/CAA Performed by: [...] currently active code status orders. Care Teams Family Resource Management Specialist Relationship Specialty Start Date End Date Bonnie Ahn MD [address] [place] [address] , [address] [facility] D[facility]A: [facility] [place], [place] PCP - General Internal Medicine 03/29/19
[2024-12-28 10:05] LABS: Thyroid Stimulating Hormone 2.04 uIU/mL (0.32-4.0)
== END 2024-12-28 08:28 | disposition home or self-care (01) ==
LOC: HO.LAB 08:27
PROVIDERS: PCP Internal Medicine; Visit Provider Internal Medicine
DX: E03.9 Hypothyroidism, unspecified (principal)
CPT/HCPCS: 36415; 84443